=== PATIENT | male | born 1940 | race Caucasian/White ===

== ENCOUNTER → 2016-03-11 | Outpatient (CLI) | payer OTHER ==
[~2016-03-11] MED LIST: ACET325T96 PO; ALLO100T PO; AMLO-110 PO; AMOX875T PO; ANT25 PO; ASPI-232 PO; ASPI81TA28 PO; ATRIN INH; B-CO1CAP17 PO; B-COCAP20 PO; CALC667C PO; CHLO10CA7 PO; CHOL100010 PO; CHOL2000 PO; CIPR-255 PO; CMD3 PO; CMD5 PO; DSY/150 PO; FLM4 PO; FRS/40 PO; GABA-112 PO; HYDR-5688 PO; INSU1INJ2 SQ; INSU3INJ3 SQ; INSUINJ12 SC; IPRASOL4 INH; LBR10 PO; LEVO-17 PO; LEVO-366 PO; LIDO4CRE10 TOP; LISI40TA PO; LPT/20 PO; LSN40 PO; LSX40 PO; LVMI SC; LVMIPEN SC; METO25TA3 PO; METO50TA7 PO; METR-163 PO; MTR500 PO; MULT-506 PO; NF1094 IV; NF1420 PO; NRV5 PO; NUTR-7 PO; NVLGI SC; NVLGIPEN SC; OXYC-57 PO; PRLSR20 PO; RANI300T PO; RANI300T2 PO; SODI650T8 PO; TPRSR25 PO; TPRSR50 PO; VLTG EXT
--- NOTE | 2016-03-11 09:16 | DIAGNOSTIC IMAGING REPORT ---
RIGHT FOOT MIN 3 VIEWS ROUTINE CLINICAL HISTORY: Nonhealing diabetic ulcer. COMPARISON: None FINDINGS: The tarsometatarsal joints are intact. There is extensive posterior and plantar calcaneal spurring. There is bony irregularity of the sesamoids which is degenerative. Mild to moderate arthritis is noted within multiple articulations. There is no bony destruction to suggest osteomyelitis by radiography. There is no acute fracture. Calcifications adjacent to the right fifth metatarsal head are chronic. Note is made of apparent soft tissue swelling, most evident lateral to the right fifth metatarsophalangeal joint. IMPRESSION: No radiographic evidence of osteomyelitis within the right foot. Electronically signed by: Adrian Fox M.D. 03/11/2016 9:14 AM Dictated Date/Time: 03/11/2016 9:12 AM
== END | disposition home or self-care (01) ==
LOC: C.RAD 08:14
PROVIDERS: ATTEND Emergency Medicine
DX: E11.621 Type 2 diabetes mellitus with foot ulcer (principal); L97.519 Non-pressure chronic ulcer of other part of right foot with unspecified severity

== ENCOUNTER → 2016-04-14 | Outpatient (CLI) | payer OTHER ==
--- NOTE | 2016-04-15 07:31 | DIAGNOSTIC IMAGING REPORT ---
MRI OF THE RIGHT THIGH NO CONTRAST CLINICAL HISTORY: Right thigh mass COMPARISON STUDY: None FINDINGS: The patient was unable to tolerate the complete study. The examination consisted of axial T1 and T2-weighted images. There is a large anterior intramuscular thigh mass which parallels fat in signal intensity. The lesion does contain septations. No enhanced images were acquired. IMPRESSION: 1. The patient's palpable thigh mass corresponds to a 25 x 11 x 8 cm fatty mass. 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 2. The patient was unable to complete the examination. For this reason it was not possible to evaluate this mass for additional features which would suggest the possibility of a low-grade liposarcoma. Clinical correlation is therefore advocated. If this mass is enlarging, then biopsy could be obtained in follow-up. Electronically signed by: Sandip Montana M.D. 04/15/2016 7:29 AM Dictated Date/Time: 04/15/2016 7:25 AM
== END | disposition home or self-care (01) ==
LOC: C.MRI 04-01 07:27 → C.OPENMRI 09:38
PROVIDERS: ATTEND Internal Medicine
DX: D17.23 Benign lipomatous neoplasm of skin and subcutaneous tissue of right leg (principal)

== ENCOUNTER → 2016-04-21 | Outpatient (CLI) | payer OTHER | END | disposition home or self-care (01) | LOC: C.LABSPEC 17:03 | PROVIDERS: ATTEND Podiatrist | DX: M79.671 Pain in right foot (principal) ==

== ENCOUNTER → 2016-04-26 | Outpatient (CLI) | payer OTHER ==
--- NOTE | 2016-04-26 17:04 | DIAGNOSTIC IMAGING REPORT ---
BILATERAL LOWER EXTREMITY ARTERIAL DOPPLER STUDY HISTORY: Gangrene foot. Diabetic angiopathy. COMPARISON STUDY: None. FINDINGS: The right ankle-brachial index measured with the posterior tibial artery was 1.03 and the dorsalis pedis artery was 0.86. The left ankle-brachial measured with the posterior tibial artery was 0.84 and the dorsalis pedis artery was 0.69. Calcified plaque seen throughout the bilateral lower extremity arterial systems. Normal biphasic waveforms and velocities seen within the right common femoral and proximal superficial femoral artery. Elevated velocity within the mid right superficial femoral artery of 236 cm/s which also demonstrates monophasic flow. This is consistent with an area stenosis. There is also an elevated systolic velocity within the popliteal artery measuring 216 cm/s. Elevated velocity within the right profunda femoris artery of 311 cm/s. Biphasic waveforms within the right anterior tibial artery. Monophasic normal velocity waveforms seen within the right posterior tibial, peroneal, and dorsalis pedis arteries consistent with diffuse atherosclerotic disease. Biphasic normal velocity waveforms seen within the left common femoral artery and proximal left superficial femoral artery. Monophasic normal velocity waveforms seen throughout the remaining left lower extremity arterial system. IMPRESSION: 1. Elevated velocities within the mid right superficial femoral artery, right popliteal artery, and right profunda femoris artery consistent with areas of stenosis. 2. No hemodynamically significant stenosis within the left lower extremity arterial system. However, there monophasic waveforms seen throughout the majority of the left lower extremity arterial system suggestive of diffuse atherosclerotic disease. 3. No areas of arterial occlusion. Electronically signed by: Theodore Honeycutt M.D. 04/26/2016 5:03 PM Dictated Date/Time: 04/26/2016 4:56 PM
== END | disposition home or self-care (01) ==
LOC: C.ULTR 13:42
PROVIDERS: ATTEND Podiatrist
DX: E11.51 Type 2 diabetes mellitus with diabetic peripheral angiopathy without gangrene (principal)

== ENCOUNTER 2016-05-19 08:33 | Day surgery (SDC) | payer OTHER ==
[2016-05-19] VITALS (8 sets, daily range): BP systolic 138–180; BP diastolic 59–81; PULSE 69–89; TEMP 36.5–36.7; O2SAT 93–98; Ht 185.4 cm; Wt 112.0 kg
[~2016-05-19] VITALS: Ht 185.4 cm; Wt 112.0 kg
[~2016-05-19 08:33] MED LIST changes: -ACET325T96 PO; -ANT25 PO; -ASPI81TA28 PO; -B-CO1CAP17 PO; -B-COCAP20 PO; -CALC667C PO; -CHLO10CA7 PO; -CHOL2000 PO; -CMD3 PO; -CMD5 PO; -DSY/150 PO; -FLM4 PO; -FRS/40 PO; -GABA-112 PO; -HYDR-5688 PO; -INSU1INJ2 SQ; -INSU3INJ3 SQ; -LBR10 PO; -LEVO-17 PO; -LEVO-366 PO; -LIDO4CRE10 TOP; -LISI40TA PO; -LPT/20 PO; -LSN40 PO; -LSX40 PO; -LVMI SC; -LVMIPEN SC; -METO25TA3 PO; -METR-163 PO; -MTR500 PO; -NF1094 IV; -NF1420 PO; -NRV5 PO; -NUTR-7 PO; -NVLGIPEN SC; -OXYC-57 PO; -RANI300T PO; +SODIUM CHLORIDE 0.9% 1000ML IV SCH; -TPRSR25 PO; -TPRSR50 PO; -VLTG EXT
[2016-05-19] MEDS ORDERED: MIDAZOLAM HCL 1 MG/ML 2ML VIAL ONE (09:55)
[2016-05-19] MEDS ORDERED: FENTANYL CITRATE INJ 50 MCG/1 ML 2 ML VIAL ONE (09:55)
[2016-05-19] MEDS ORDERED: HEPARIN SOD (PORCINE) 1000 UNIT/ML 10 ML VIAL ONE (09:55)
--- NOTE | 2016-05-19 10:10 | Procedure Note ---
Pre-Mod Sedation Assessment General Date of Moderate Sedation: May 19, 2016. Vital Signs: Vital Signs Past 12 Hours Date Time Temp Pulse Resp B/P Pulse Ox O2 Delivery O2 Flow Rate FiO2 05/19/16 09:47 36.6 89 18 177/74 94 Room Air 05/19/16 08:47 36.6 89 18 177/74 94 Room Air Review Cardiovascular: regular rate, rhythm, no edema Abdomen: normal bowel sounds, non tender, soft Lungs: chest non-tender, lungs clear Airway Class: II Pre-Sedation Airway Assessment Oral Cavity: Dentures Able to Visualize Vocal Cords: No Short Thick Neck: No Hx of Sleep Apnea: No Smoking Status: Former Smoker Mallampati Classification: Class III ASA Classification: Class III Procedure Planning Contraindications-for Mod Sed: None Yes Notes The planned sedation has been discussed with the patient and consent obtained. I have identified the patient, determined the appropriateness of sedation and have assessed the patient immediately prior to the procedure. All medicine(s) and interventions are by my order.
[2016-05-19] MEDS ORDERED: NURSING VERBAL MED ORDER ONE (10:15)
--- NOTE | 2016-05-19 10:16 | History and Physical ---
History & Physical Date May 19, 2016. Chief Complaint Right lower extremity wound History of Present Illness Mr. Carmichael is a 75-year-old man with a history type 2 diabetes on insulin, hypertension, dyslipidemia, end-stage renal disease on hemodialysis via left upper extremity fistula seen recently for nonhealing wound on his right lower extremity and questionable peripheral artery disease. Patient was referred today for further evaluation by Dr. Hart of Podiatry. Patient has had a nonhealing wound on the plantar aspect of his right foot over his 5th metatarsal for approximately 7 weeks. Intermittently been followed by the wound clinic and has been on p.o. antibiotics without significant improvement. Dr. Hart saw patient for a second opinion and recommended possible surgical intervention of the 5th metatarsal head following vascular workup. Patient underwent QUYEN/lower extremity arterial duplex 1 week ago which suggested mild bilateral lower extremity arterial insufficiency and right SFA/popliteal disease. Past Medical/Surgical History Medical Problems: (1) CKD (chronic kidney disease) stage 3, GFR 30-59 ml/min (2) Gout (3) History of adenomatous polyp of colon (4) History of Clostridium difficile infection (5) Monoclonal gammopathy Surgical Problems: (1) Status post arthroscopic knee surgery Additional History Hepatic Disease: No Endocrine Disorder: Yes Kidney Disease: Yes Hypertension: Yes Heart Disease: No Bleeding Tendencies: No Infectious Diseases: No Allergies Coded Allergies: No Known Allergies (Verified , 12/28/15) Home Medications Scheduled Allopurinol (Zyloprim), 1 TAB PO HS Amlodipine (Norvasc), 5 MG PO QAM Aspirin (Aspir-81), 1 TAB PO QAM Cholecalciferol (Vitamin D), 1,000 INTER.UNIT PO BID Insulin Aspart (Novolog), 60 UNITS SC BID Insulin Detemir (Levemir), 60 UNITS SC HS Metoprolol Succ (Toprol Xl) (Toprol-Xl), 50 MG PO QAM Omeprazole (Prilosec), 20 MG PO QAM Sodium Bicarbonate (Sodium Bicarbonate), 1 TAB PO BID Scheduled PRN Ipratropium [place] (Atrovent Hfa), 2 PUFFS INH QID PRN for Shortness of Breath Ipratropium-Albuterol (Duoneb), 1 TREATMENT INH Q4H PRN for Shortness of Breath Physical Examination Skin: warm/dry Eyes: normal inspection ENT: normal ENT inspection Head: normocephalic Neck: supple Respiratory/Chest: lungs clear Cardiovascular: regular rate, rhythm, no edema Abdomen / GI: normal bowel sounds, non tender Extremities: normal inspection, + pertinent finding (right foot wound dressed) Neurologic/Psych: no motor/sensory deficits, alert Diagnosis Lower extremity ulceration PAD ASA Classification: ASA Class III Plan of Treatment Proceed with bilateral peripheral angiogram and possible intervention.
[2016-05-19] MEDS ORDERED: MIDAZOLAM HCL 1 MG/ML 2ML VIAL IV ONE (10:48)
[2016-05-19] MEDS ORDERED: FENTANYL CITRATE INJ 50 MCG/1 ML 2 ML VIAL IV ONE ×2 (10:49→11:13)
[2016-05-19] MEDS ORDERED: IODIXANOL (VISIPAQUE) 270 MG/ML 150ML FLUSH ONE (11:22)
[2016-05-19] MEDS ORDERED: LIDOCAINE HCL 1% 20 ML VIAL SQ ONE (11:22)
[2016-05-19] MEDS ORDERED: ACETAMINOPHEN 325 MG TAB PO PRN (11:45)
--- NOTE | 2016-05-19 11:45 | Procedure Note ---
Post-Mod Sedation Assessment General Date of Moderate Sedation May 19, 2016. Vital Signs: Vital Signs Past 12 Hours Date Time Temp Pulse Resp B/P Pulse Ox O2 Delivery O2 Flow Rate FiO2 05/19/16 09:47 36.6 89 18 177/74 94 Room Air 05/19/16 08:47 36.6 89 18 177/74 94 Room Air Review - Discharge Criteria Vital Signs Stable: Yes Alert/Oriented/Conversant: Yes Returned to Baseline Mental St: Yes Nausea Absent/Minimal: Yes Pain/Discomfort/Absent/Minimal: Yes Normal/Baseline Respirations: Yes Active Bleeding?: N/A Pt Received D/C Instructions: Yes Prescriptions Given: None Specific Proced. D/C Criteria Distal Pulses Present (Cardiac: Yes Groin site assessed-Card Cath: Yes Voided Prior To Discharge: N/A Discharged Patients Adult Escort/Transportation: Yes
--- NOTE | 2016-05-19 12:01 | [facility] Operative Report ---
Operative Report Operative Date May 19, 2016. Pre-Operative Diagnosis PAD Post-Operative Diagnosis Mild non-obstructive PAD Procedure(s) Performed Bilateral Peripheral Angiogram Selective Angiogram of right SFA/distal lower extremity Surgeon Dr. Pickering [employer]eteria Food Server Surgeon(s) Tova Rushing Estimated Blood Loss 10 Findings US guided access left SOFTWARE PRODUCT MANAGER. rim catheter, glidewire. Later, selective angiogram with a quickcross to visualize SFA and foot Infrarenal abdominal aorta mildy aneurysmal Right Iliac, SOFTWARE PRODUCT MANAGER, SFA, Popliteal all patent. Mild to moderate calcified sclerosis in mid to distal SFA/popliteal <50%. TPT patent PT large vessel with minimal disease to the foot filling the posterior branch of the pedal arch AT and peroneal mild-moderate diffuse disease but patent to the foot. Left 70-80% ostial IAN stenosis. EIA patent with mild disease. Left SOFTWARE PRODUCT MANAGER patent, ok for closure device. Left SFA with focal calcified disease in the mid segment, up to 80% stenosis. Popliteal, TPT patent PT patent with mild disease to the foot AT and PT diffusely diseased but patent to the foot. Summary: 1. Mild-moderate nonobstructive disease throughout right lower extremity arterial system. 3 vessel distal runoff with large PT supplying pedal arch 2. Severe 70-80% left ostial common iliac stenosis. 3. Moderate to severe focal left SFA stenosis. Recommendations: Mild right lower extremity disease with good in-line flow to the foot and plantar wound. No plans for intervention at this time. Specimens None Drains None Anesthesia Moderate Complication(s) None Disposition Recovery Room / PACU Description of Procedure [employer] for closure I attest to the content of the Intraoperative Record and any orders documented therein. Any exceptions are noted below.
--- NOTE | 2016-05-19 14:50 | Discharge Instructions ---
Discharge Instructions Procedure Procedure Date: May 19, 2016. Reason for Visit: Peripheral Artery Disease. Discharge Discharge Date: May 19, 2016. Discharge Diagnosis: Nonobstructive PAD Last Recorded Wt (Kilograms): 112 Anesthesia Post Anesthesia Instructions: If you have had General Anesthesia or IV Sedation: * Do not drive today. * Resume driving when surgeon permits. * Do not make important decisions or sign legal documents today. * Call surgeon for: 1. Temperature elevations greater than 101 degrees F. 2. Uncontrollable pain. 3. Excessive bleeding. 4. Persistent nausea and vomiting. 5. Medication intolerance (nausea, vomiting or rash). * For nausea and vomiting use only clear liquids such as: tea, soda, bouillon until nausea subsides, then gradually increase diet as tolerated. * If you have any concerns or questions, call your surgeon's office. If physician is unavailable and it is an emergency, call 911 or go to the nearest emergency room. Instructions Activity Recommendations: limitations as noted below Recommended Home Diet: resume previous diet Allergies: Coded Allergies: No Known Allergies (Verified , 12/28/15) Follow Up Additional Instructions: ACTIVITY RECOMMENDATIONS: It is common to feel weak and fatigue for a few days. * Do not drive or operate any motorized equipment for the next 2 days. * Limit stair usage (2 or 3 trips a day only) for the next three days. * Do not lift anything heavier than 10 pounds for the next three days. * Do not engage in vigorous exercise or any sports for the next five days. * You may shower the day after your procedure, but do not immerse the area for three days. Cleanse the site gently with soap and water. SPECIAL CARE INSTRUCTIONS: * You may replace the pressure dressing or band-aid the morning after the procedure. * After your procedure, it is normal to have a small bruise or small lump at the site. Examine your site daily for any change in the bruise or lump, redness, swelling, drainage or numbness. Notify your doctor if any change. BLEEDING: * If there is a small amount of bleeding at the site, lie down and apply firm pressure with a clean cloth for ten minutes. When the bleeding stops, lie quietly keeping the procedure limb straight for six hours. Notify your doctor as soon as possible. * If the bleeding does not stop after ten minutes or if there is a large amount of bleeding or spurting, call 911 immediately. Continue to lie down and hold firm pressure until help arrives. SKIN IRRITATION: * You may experience some redness and/or swelling in the area where radiation was administered. If any skin irritation occurs, please contact your family physician. FOLLOW UP VISIT: Keep any scheduled doctor appointments. Follow-up with: Follow-up with Moisture Conditioner Operator as scheduled. Jackson Mccurdy Recommendations: Call your doctor if: * Temperature above 101 degrees * Pain not relieved by pain medicine ordered * There is increased drainage or redness from any incision * You have any unanswered questions or concerns. Your Doctors Instructions noted above were prepared by provider Roland Pickering. Patient Signature Section: Patient Instructions Signature Page Bre Carmichael Patient (or Guardian) Signature/Date: I have read and understand the instructions given to me by my caregivers. Caregiver/RN/Doctor Signature/Date: The above-named patient and/or guardian has received patient instructions on this date. + Original Patient Signature Page (only) stays with chart. Please make copy for patient.
[2016-06-17] MEDS ORDERED: TPRSR25 PO (13:12)
[2016-06-17] MEDS ORDERED: HYDR-5688 PO (13:12)
[2016-06-17] MEDS ORDERED: LVMIPEN SC (13:12)
[2016-06-17] MEDS ORDERED: NRV5 PO (13:12)
[2016-06-17] MEDS ORDERED: MTR500 PO (13:12)
[2016-06-17] MEDS ORDERED: LSN40 PO (13:12)
[2016-06-17] MEDS ORDERED: LBR10 PO (13:12)
[2016-06-17] MEDS ORDERED: TPRSR50 PO (13:12)
[2016-06-17] MEDS ORDERED: NF1094 IV (13:12)
[2016-06-17] MEDS ORDERED: CMD5 PO (13:13)
[2016-06-17] MEDS ORDERED: LEVO-17 PO (15:06)
[2016-07-08] MEDS ORDERED: NF1420 PO (14:08)
[2016-07-13] MEDS ORDERED: LIDO4CRE10 TOP (17:57)
[2016-07-13] MEDS ORDERED: FRS/40 PO (17:57)
[2016-07-13] MEDS ORDERED: ALLO100T PO (17:57)
[2016-07-13] MEDS ORDERED: METO25TA3 PO (17:57)
[2016-07-16] MEDS ORDERED: HYDR-5688 PO (11:21)
[2016-07-16] MEDS ORDERED: NUTR-7 PO (11:21)
[2016-07-16] MEDS ORDERED: VLTG EXT (11:21)
[2016-07-16] MEDS ORDERED: B-COCAP20 PO (11:21)
[2016-07-19] MEDS ORDERED: VLTG EXT (16:27)
[2016-07-19] MEDS ORDERED: NVLGIPEN SC (16:27)
[2016-07-19] MEDS ORDERED: CMD3 PO (16:28)
[2016-07-19] MEDS ORDERED: INSU3INJ3 SQ (16:35)
[2016-07-19] MEDS ORDERED: OXYC-57 PO (17:07)
[2016-07-29] MEDS ORDERED: GABA-112 PO (13:17)
== END 2016-05-19 15:45 | disposition home or self-care (01) ==
LOC: C.ACU 08:33
PROVIDERS: ATTEND Internal Medicine Interventional Cardiology
DX: I73.9 Peripheral vascular disease, unspecified (principal); E11.9 Type 2 diabetes mellitus without complications; I12.0 Hypertensive chronic kidney disease with stage 5 chronic kidney disease or end stage renal disease; N18.6 End stage renal disease; Z79.4 Long term (current) use of insulin

== ENCOUNTER → 2016-05-28 | Outpatient (CLI) | payer OTHER ==
[~2016-05-28] MED LIST changes: +ACET325T96 PO; -AMOX875T PO; +ANT25 PO; +ASPI81TA28 PO; +B-CO1CAP17 PO; +B-COCAP20 PO; +CALC667C PO; +CHLO10CA7 PO; +CHOL2000 PO; -CIPR-255 PO; +CMD3 PO; +CMD5 PO; +DSY/150 PO; +FLM4 PO; +FRS/40 PO; +GABA-112 PO; +HYDR-5688 PO; +INSU1INJ2 SQ; +INSU3INJ3 SQ; +LBR10 PO; +LEVO-17 PO; +LEVO-366 PO; +LIDO4CRE10 TOP; +LISI40TA PO; +LPT/20 PO; +LSN40 PO; +LSX40 PO; +LVMI SC; +LVMIPEN SC; +METO25TA3 PO; +METR-163 PO; +MTR500 PO; -MULT-506 PO; +NF1094 IV; +NF1420 PO; +NRV5 PO; +NUTR-7 PO; +NVLGIPEN SC; +OXYC-57 PO; +RANI300T PO; -RANI300T2 PO; -SODIUM CHLORIDE 0.9% 1000ML IV SCH; +TPRSR25 PO; +TPRSR50 PO; +VLTG EXT
== END | disposition home or self-care (01) ==
LOC: C.LABSPEC 15:22
PROVIDERS: ATTEND Podiatrist
DX: L97.511 Non-pressure chronic ulcer of other part of right foot limited to breakdown of skin (principal)

== ENCOUNTER 2016-06-02 09:24 | Inpatient (IN) | payer OTHER ==
[~2016-06-02] VITALS: Ht 185.4 cm; Wt 111.2 kg
[~2016-06-02 09:24] MED LIST changes: -ACET325T96 PO; -ANT25 PO; -ASPI81TA28 PO; -B-CO1CAP17 PO; -B-COCAP20 PO; -CALC667C PO; -CHLO10CA7 PO; -CHOL2000 PO; -CMD3 PO; -CMD5 PO; -DSY/150 PO; -FLM4 PO; -FRS/40 PO; -GABA-112 PO; -HYDR-5688 PO; -INSU1INJ2 SQ; -INSU3INJ3 SQ; -LBR10 PO; -LEVO-17 PO; -LEVO-366 PO; -LIDO4CRE10 TOP; -LISI40TA PO; -LPT/20 PO; -LSN40 PO; -LSX40 PO; -LVMI SC; -LVMIPEN SC; -METO25TA3 PO; -METR-163 PO; -MTR500 PO; -NF1094 IV; -NF1420 PO; -NRV5 PO; -NUTR-7 PO; -NVLGIPEN SC; -OXYC-57 PO; -RANI300T PO; -TPRSR25 PO; -TPRSR50 PO; -VLTG EXT
[2016-06-02] MEDS ORDERED: PIPERACILLIN/TAZOBACTAM 4.5 GM/100ML D5W IV STA (09:59)
[2016-06-02] MEDS ORDERED: VANCOMYCIN INJ 0 MG in SODIUM CHLORIDE 0.9% 500ML 500 ML IV STA (09:59)
--- NOTE | 2016-06-02 10:01 | EMERGENCY ROOM VISIT NOTE ---
History Report prepared by [facility]: Priscilla Lala Under the Supervision of: Dr. Jones Loo M.D. First contact with patient: 09:50 Chief Complaint: NAUSEA Stated Complaint: NAUSEA Nursing Triage Summary: Pt presents to room a04 via ambulance from dialysis. pt was able to complete dialysis treatment today. pt reports he has had nausea and vomitting, fever and chills x 5 days. pt had three episodes of vomitting today. at dialysis per [facility] call in sheet pt recieved 1.25 grams of vancomycin today. pt is to have right foot surgery on tuesday. right foot reddned, swollen and ulceration on lateral 5th toe. pt reports headache. History of Present Illness The patient is a 75 year old male who presents to the Emergency Room with complaints of persistent nausea for the past five days. He currently rates his discomfort as an 8/10 in severity. The patient states that he is a dialysis patient, noting that he started 6-7 months ago. He states that he missed dialysis on Tuesday due to his illness, but notes that he was able to receive his dialysis today. The patient states that he still makes urine, and denies any urinary symptoms. The patient notes that for the past six months he has had right foot pain. He states that he previously had an ulcer. The patient denies being on any current antibiotics for his foot. The patient denies any chest pain, headache, or diarrhea. He states that he has been keeping up on his fluid intake. Per nursing staff, the patient was given 1.25 gm of Vancomycin at dialysis prior to arrival. Source of History: patient, spouse/significant other Onset: past five days Position: other (global) Symptom Intensity: 8/10 Quality: other (nausea) Timing: other (persistent) Associated Symptoms: No chest pain, No diarrhea, No headache, No urinary symptoms Review of Systems See HPI for pertinent positives & negatives. A total of 10 systems reviewed and were otherwise negative. Past Medical & Surgical Medical Problems: (1) CKD (chronic kidney disease) stage 3, GFR 30-59 ml/min (2) Gout (3) History of adenomatous polyp of colon (4) History of Clostridium difficile infection (5) Monoclonal gammopathy (6) Unspecified open wound, right foot, sequela Surgical Problems: (1) Status post arthroscopic knee surgery Old medical records were reviewed. Nurse's notes were reviewed and I agree with. Family History FH: diabetes mellitus AUNT FH: stroke GRANDMOTHER Social History Smoking Status: Former Smoker Alcohol Use: none Drug Use: none Marital Status: Housing Status: lives with family Occupation Status: retired Current/Historical Medications Scheduled Allopurinol (Zyloprim), 1 TAB PO HS Amlodipine (Norvasc), 5 MG PO QAM Aspirin (Aspir-81), 1 TAB PO QAM Atorvastatin (Atorvastatin Calcium), 1 TAB PO DAILY Calcium Acetate (Phosphate Bin (Phoslo 667 Mg), 1 CAP PO TID Cholecalciferol (Vitamin D3), 1 CAP PO DAILY Furosemide (Furosemide), 1 TAB PO DAILY Insulin Aspart (Novolog Penfill), 60 UNITS SQ BID Insulin Detemir (Levemir), 80 UNITS SC HS Metoprolol Succ (Toprol Xl) (Toprol-Xl), 50 MG PO QAM Ranitidine Hcl (Zantac), 1 TAB PO DAILY Sodium Bicarbonate (Sodium Bicarbonate), 1 TAB PO BID Tamsulosin HCl (Tamsulosin HCl), 1 CAP PO HS Scheduled PRN Ipratropium [place] (Atrovent Hfa), 2 PUFFS INH QID PRN for Shortness of Breath Ipratropium-Albuterol (Duoneb), 1 TREATMENT INH Q4H PRN for Shortness of Breath Meclizine HCl (Meclizine HCl), 1 TAB PO Q4H PRN for Dizziness or Vertigo Trazodone HCl (Trazodone HCl), 1 TAB PO DAILY PRN for Pain Allergies Coded Allergies: No Known Allergies (Verified , 06/02/16) Physical Exam Vital Signs Date Time Temp Pulse Resp B/P Pulse Ox O2 Delivery O2 Flow Rate FiO2 06/02/16 12:10 93 Room Air 06/02/16 10:54 99 20 155/62 93 Room Air 06/02/16 10:04 100 06/02/16 09:46 93 Room Air 06/02/16 09:39 38.2 98 20 149/64 93 Room Air Physical Exam General: Well developed well nourished, non-ill appearing older male in no acute distress, breathing comfortably on room air. Normal speech HEENT: Normal cephalic atraumatic. Pupils are equal round and reactive to light. Extraocular movements are intact. Oropharynx is pink with moist mucous membranes. No swelling of the mouth lips or tongue. Neck: Supple with a midline trachea. No meningeal signs or stiffness, no JVD or bruits. No Stridor. Chest: Clear to auscultation bilaterally. No wheezes or rhonchi. No increased work of breathing. Heart: regular rate and rhythm. Abdomen: Soft nontender, nondistended without rebound guarding or rigidity. Extremities: Dialysis fistula in left arm. Right foot has an ulcer on the plantar aspect. The area is red and warm up to the castellon consistent with cellulitis. No cyanosis clubbing or edema. No calf tenderness or assymetry Spine/Back. Non tender to palpation. No CVA tenderness Skin: Good turgor without rashes. Neurologic exam: Cranial nerves two through 12 are intact. Motor and sensation are intact and symmetrical throughout. Medical Decision & Procedures ER Provider Diagnostic Interpretation: X-ray results as stated below per interpretation by me and the radiologist: CHEST ONE VIEW PORTABLE HISTORY: Atypical CHEST PAIN COMPARISON: Chest 03/20/2015. FINDINGS: Mild diffuse interstitial thickening, unchanged. The heart is normal in size. No pleural effusions. No pneumothorax. No new focal lung consolidations. IMPRESSION: Stable chronic interstitial thickening. No acute process within the chest. Electronically signed by: Theodore Honeycutt M.D. 06/02/2016 10:50 AM Dictated Date/Time: 06/02/2016 10:47 AM RIGHT FOOT 3 VIEWS CLINICAL HISTORY: Right foot infection. FINDINGS: 3 views of the right foot are compared to study dated 03/11/2016. The Skeletal structures are osteopenic. No fracture is seen. There is no bony erosion or periostitis identified. Arthritic change is seen at the first metatarsophalangeal and interphalangeal joints. Degenerative spurring is seen along the dorsal aspect of the tarsal bones. There is a large os trigonum. Large dorsal and plantar calcaneal enthesophytes are observed. Diffuse soft tissue edema is present throughout the foot. Foci of subcutaneous gas are identified along the lateral aspect of the forefoot, greatest around the fifth metatarsophalangeal joint. No radiodense foreign body is seen. IMPRESSION: 1. No acute bony abnormality is identified in the right foot. There is no convincing radiographic evidence of fracture or osteomyelitis. 2. Osteopenia, heel spurs, and arthritic change as above. 3. There is diffuse soft tissue edema throughout the foot. Foci of subcutaneous gas are present along the lateral aspect of the forefoot around the fifth metatarsophalangeal joint. This could the related to recent instrumentation or possibly infection with a gas-forming organism. Clinical correlation will be required. Electronically signed by: Allan Guerrero M.D. 06/02/2016 12:30 PM Dictated Date/Time: 06/02/2016 12:26 PM Laboratory Results 06/02/16 10:50 Red Blood Count 3.37, Mean Corpuscular Volume 91.1, Mean Corpuscular Hemoglobin 31.2, Mean Corpuscular Hemoglobin Concent 34.2, Mean Platelet Volume 8.7, Neutrophils (%) (Auto) 82.7, Lymphocytes (%) (Auto) 8.2, Monocytes (%) (Auto) 8.6, Eosinophils (%) (Auto) 0.0, Basophils (%) (Auto) 0.1, Neutrophils # (Auto) 19.13, Lymphocytes # (Auto) 1.90, Monocytes # (Auto) 1.99, Eosinophils # (Auto) 0.01, Basophils # (Auto) 0.03 06/02/16 10:50 Test 06/02/16 10:50 06/02/16 10:58 06/02/16 11:00 White Blood Count 23.15 K/uL (4.8-10.8) Red Blood Count 3.37 M/uL (4.7-6.1) Hemoglobin 10.5 g/dL (14.0-18.0) Hematocrit 30.7 % (42-52) Mean Corpuscular Volume 91.1 fL (80-100) Mean Corpuscular Hemoglobin 31.2 pg (25-34) Mean Corpuscular Hemoglobin Concent 34.2 g/dl (32-36) Platelet Count 343 K/uL (130-400) Mean Platelet Volume 8.7 fL (7.4-10.4) Neutrophils (%) (Auto) 82.7 % Lymphocytes (%) (Auto) 8.2 % Monocytes (%) (Auto) 8.6 % Eosinophils (%) (Auto) 0.0 % Basophils (%) (Auto) 0.1 % Neutrophils # (Auto) 19.13 K/uL (1.4-6.5) Lymphocytes # (Auto) 1.90 K/uL (1.2-3.4) Monocytes # (Auto) 1.99 K/uL (0.11-0.59) Eosinophils # (Auto) 0.01 K/uL (0-0.5) Basophils # (Auto) 0.03 K/uL (0-0.2) RDW Standard Deviation 46.9 fL (36.4-46.3) RDW Coefficient of Variation 14.0 % (11.5-14.5) Immature Granulocyte % (Auto) 0.4 % Immature Granulocyte # (Auto) 0.09 K/uL (0.00-0.02) Prothrombin Time 11.6 SECONDS (9.0-12.0) Prothromb Time International Ratio 1.1 (0.9-1.1) Activated Partial Thromboplast Time 26.8 SECONDS (21.0-31.0) Partial Thromboplastin Ratio 1.0 Anion Gap 16.0 mmol/L (3-11) Est Creatinine Clear Calc Drug Dose 14.1 ml/min Estimated GFR () 10.0 Estimated GFR (Non- 8.6 BUN/Creatinine Ratio 6.2 (10-20) Calcium Level 9.0 mg/dl (8.5-10.1) Total Bilirubin 1.3 mg/dl (0.2-1) Direct Bilirubin 0.4 mg/dl (0-0.2) Aspartate Amino Transf (AST/SGOT) 32 U/L (15-37) Alanine Aminotransferase (ALT/SGPT) 24 U/L (12-78) Alkaline Phosphatase 157 U/L (45-117) Total Creatine Kinase 341 U/L (39-308) Creatine Kinase MB 3.0 ng/ml (0.5-3.6) Creatine Kinase MB Ratio 0.9 (0-3.0) Total Protein 8.0 gm/dl (6.4-8.2) Albumin 2.6 gm/dl (3.4-5.0) Lipase 141 U/L (73-393) Bedside Troponin I 0.040 ng/ml (0-0.045) Bedside Lactic Acid Venous 1.49 mmol/L (0.90-1.70) Laboratory studies as stated above per my review. Medications Administered Medications (Trade) Dose Ordered Sig/Eliseo Route Start Time Stop Time Status Last Admin Dose Admin Piperacillin Sod/ Tazobactam Sod (Zosyn Iv) 4.5 gm NOW STAT IV 06/02/16 09:59 06/02/16 10:07 DC 06/02/16 11:32 4.5 GM Morphine Sulfate (MoRPHine SULFATE INJ) 4 mg NOW STAT IV 06/02/16 11:41 06/02/16 11:42 DC 06/02/16 12:00 4 MG Ondansetron HCl (Zofran Inj) 4 mg NOW STAT IV 06/02/16 11:41 06/02/16 11:42 DC 06/02/16 11:59 4 MG Acetaminophen (Tylenol Tab) 650 mg NOW STAT PO 06/02/16 11:49 06/02/16 11:50 DC 06/02/16 12:00 650 MG Ondansetron HCl (Zofran Inj) 4 mg Q6H PRN IV 06/02/16 12:30 07/02/16 12:29 06/02/16 17:48 4 MG Oxycodone/ Acetaminophen (Percocet 5-325mg Tab) 1 tab Q4H PRN PO 06/02/16 12:30 06/16/16 12:29 06/02/16 16:13 1 TAB Morphine Sulfate (MoRPHine SULFATE INJ) 2 mg Q2H PRN IV 06/02/16 12:30 06/16/16 12:29 06/02/16 15:06 2 MG ECG Indication: nausea Rate (beats per minute): 100 Rhythm: normal sinus Findings: no acute ischemic change, other (poor baseline, occasional premature supraventricular complexes) Comparison ECG Date: 02/25/10 Change: no significant change ED Course 0950: Past medical records reviewed. The patient was evaluated in room A4B, and a complete history and physical examination were performed. 0959: Ordered Vancomycin HCl/Sodium Chloride 500 ml @ 200 mls/hr IV, Zosyn IV 4.5 gm IV. 1119: I reevaluated the patient and he is resting comfortably. I discussed the exam findings so far with him and I discussed the treatment plan. He verbalized complete understanding and agreement. He will be evaluated for further treatment. 1141: Ordered Zofran Inj 4 mg IV, Morphine Sulfate 4 mg IV. 1147: I reevaluated the patient and he is receiving pain medications. 1149: Ordered Tylenol Tab 650 mg PO. 1150: I discussed the patients case with NANCY Anne. He is going to evaluate the patient for further treatment. Medical Decision Differentials include, but are not limited to; cellulitis, osteomyelitis, cardiac disease, sepsis, electrolyte or metabolic abnormality. This patient comes in as described above. He has end-stage renal disease and is on dialysis. He's had a fever and nausea and a red foot. He was given IV vancomycin at dialysis. He did complete dialysis today. He looks well on exam with exception of his red foot. He does have a fever. He was given Tylenol for his fever blood work includes blood cultures was obtained his lactic acid is not elevated his white count is in the low 20s however. He was also given IV Zosyn here. Chest x-ray does not show any definite pneumonia. X-ray of his foot shows no definite fractures or definite osteomyelitis.. He does have some air which could be related to either infection or the the the fact that there is an ulcer there or instrumentation. I do think he needs to be admitted for IV antibiotics and possible surgery. I have consulted Dr. Pfeiffer, who saw the patient ER and will admit him for these measures. Consults Time Called: 1141 Consulting Physician: NANCY Anne Returned Call: 1150 I discussed the patients case with NANCY Anne. He is going to evaluate the patient for further treatment. Impression Primary Impression: Sepsis Additional Impression: Cellulitis of right foot Scribe Attestation The scribe's documentation has been prepared under my direction and personally reviewed by me in its entirety. I confirm that the note above accurately reflects all work, treatment, procedures, and medical decision making performed by me. Departure Information Dispostion Being Evaluated By Hospitalist Obi Murdock M.D. (PCP) Problem Qualifiers
--- NOTE | 2016-06-02 10:52 | DIAGNOSTIC IMAGING REPORT ---
CHEST ONE VIEW PORTABLE HISTORY: Atypical CHEST PAIN COMPARISON: Chest 03/20/2015. FINDINGS: Mild diffuse interstitial thickening, unchanged. The heart is normal in size. No pleural effusions. No pneumothorax. No new focal lung consolidations. IMPRESSION: Stable chronic interstitial thickening. No acute process within the chest. Electronically signed by: Theodore Honeycutt M.D. 06/02/2016 10:50 AM Dictated Date/Time: 06/02/2016 10:47 AM
[2016-06-02 11:21] LABS: BASO % 0.1 %; BASO ABS # 0.03 K/uL (0-0.2); COMPLETE YES; HEMATOCRIT 30.7 % (42-52); IG% 0.4 %; LYMPH % 8.2 %; MEAN CELL VOLUME 91.1 fL (80-100); MEAN CORPUSCULAR HEMOGLOBIN 31.2 pg (25-34); MEAN CORPUSCULAR HGB CONC 34.2 g/dl (32-36); MEAN PLATELET VOLUME 8.7 fL (7.4-10.4); MONO % 8.6 %; NEUT % 82.7 %; PLATELET COUNT 343 K/uL (130-400); RED BLOOD COUNT 3.37 M/uL (4.7-6.1); WHITE BLOOD COUNT 23.15 K/uL (4.8-10.8)
[2016-06-02 11:32] LABS: INR 1.1 (0.9-1.1); PROTHROMBIN TIME (PATIENT) 11.6 SECONDS (9.0-12.0)
[2016-06-02] MEDS ORDERED: MoRPHine SULFATE 4 MG/ML 1 ML CARP\\VIAL IV STA (11:41)
[2016-06-02] MEDS ORDERED: ONDANSETRON INJ 2 MG/ML 2 ML VIAL IV STA (11:41)
[2016-06-02] MEDS ORDERED: INSU1INJ2 SQ (11:49)
[2016-06-02] MEDS ORDERED: LVMI SC (11:49)
[2016-06-02] MEDS ORDERED: CHOL2000 PO (11:49)
[2016-06-02] MEDS ORDERED: ACETAMINOPHEN 325 MG TAB PO STA (11:49)
[2016-06-02] MEDS ORDERED: CALC667C PO (11:49)
[2016-06-02] MEDS ORDERED: RANI300T PO (11:49)
[2016-06-02] MEDS ORDERED: LPT/20 PO (11:53)
[2016-06-02] MEDS ORDERED: ANT25 PO (11:53)
[2016-06-02] MEDS ORDERED: FLM4 PO (11:53)
[2016-06-02] MEDS ORDERED: DSY/150 PO (11:53)
[2016-06-02] MEDS ORDERED: LSX40 PO (11:53)
[2016-06-02 12:10] VITALS: O2SAT 93; BMI 31.1
[2016-06-02 12:11] LABS: BUN/CREATININE RATIO 6.2 (10-20); CKMB/CK RATIO 0.9 (0-3.0); CREATININE 5.9 mg/dl (0.60-1.40); POTASSIUM 3.9 mmol/L (3.5-5.1)
[2016-06-02] MEDS ORDERED: ONDANSETRON INJ 2 MG/ML 2 ML VIAL IV PRN ×2 (12:30→18:00)
[2016-06-02] MEDS ORDERED: MECLIZINE HCL 25 MG TAB PO PRN (12:30)
[2016-06-02] MEDS ORDERED: MAGNESIUM HYDROXIDE SUSP 30 ML UDC PO PRN (12:30)
[2016-06-02] MEDS ORDERED: IPRATROPIUM BROMIDE HFA INHALER INH PRN (12:30)
[2016-06-02] MEDS ORDERED: TRAMADOL HCL 50 MG TAB PO PRN (12:30)
[2016-06-02] MEDS ORDERED: ACETAMINOPHEN 325 MG TAB PO PRN (12:30)
--- NOTE | 2016-06-02 12:32 | DIAGNOSTIC IMAGING REPORT ---
RIGHT FOOT 3 VIEWS CLINICAL HISTORY: Right foot infection. FINDINGS: 3 views of the right foot are compared to study dated 03/11/2016. The Skeletal structures are osteopenic. No fracture is seen. There is no bony erosion or periostitis identified. Arthritic change is seen at the first metatarsophalangeal and interphalangeal joints. Degenerative spurring is seen along the dorsal aspect of the tarsal bones. There is a large os trigonum. Large dorsal and plantar calcaneal enthesophytes are observed. Diffuse soft tissue edema is present throughout the foot. Foci of subcutaneous gas are identified along the lateral aspect of the forefoot, greatest around the fifth metatarsophalangeal joint. No radiodense foreign body is seen. IMPRESSION: 1. No acute bony abnormality is identified in the right foot. There is no convincing radiographic evidence of fracture or osteomyelitis. 2. Osteopenia, heel spurs, and arthritic change as above. 3. There is diffuse soft tissue edema throughout the foot. Foci of subcutaneous gas are present along the lateral aspect of the forefoot around the fifth metatarsophalangeal joint. This could the related to recent instrumentation or possibly infection with a gas-forming organism. Clinical correlation will be required. Electronically signed by: Allan Guerrero M.D. 06/02/2016 12:30 PM Dictated Date/Time: 06/02/2016 12:26 PM
--- NOTE | 2016-06-02 13:26 | History and Physical ---
History & Physical Date & Time of Service: Jun 02, 2016 at 12:50 Chief Complaint: Nausea Primary Care Physician: Obi Mendez M.D. History of Present Illness Source: patient This is a 75 yo M with PMHx of DM II, HTN, Hyperlipidemia, COPD, smoking history of 2 ppd x 35 years, quit ~20yrs ago, monoclonal gammopathy, ESRD on HD with regular schedule m/w/, gout, and chronic right lower extremity foot wound which he has followed with wound clinic and podiatry for. The patient is present here by himself. He reports being in HD this morning and staff noticed worsening of the Right foot with increased redness and swelling. He was able to tolerate his full dialysis treatment, and was started on vancomycin while there. Pt also reports this wound is now significantly painful, currently a and he has just received morphine sulfate 6 mg IV prior to my interview. He is a patient of Dr. Alyssa Haque, podiatry and was last seen in her office on 05/28 where a wound culture was obtained, no results back. He was scheduled for surgery on 06/04 as an outpatient with her. It is questionable if he is truly taking Augmentin 875 mg, he is having difficulty remembering. Pt had a Tmax of 38.2 this morning, but denies feeling sweats or chills. He denies lightheadedness of dizziness. He does report not feeling quit himself recently, and that this morning was nauseous and vomited once clear liquid, no hematemesis or coffee ground appearance. He reports loosing weight in the past 2 weeks, ~5-10lbs because he doesn't have an appetite. He lives at home with his daughter. He typically ambulates without assistance and dose not require supplemental O2. In the ER the patient has WBC of 23.15, left shift with neutrophils of 19K, Hgb= 10.5, Cr. =5.8, AG=16, Tmax 38.2, slightly tachycardic with WQ=393, Bili is elevated at 1.3. Pt was started on vancomycin and zosyn. Xray of the foot was obtained but not yet read formally. Past Medical/Surgical History Medical Problems: (1) CKD (chronic kidney disease) stage 3, GFR 30-59 ml/min Status: Chronic (2) Gout Status: Chronic (3) History of adenomatous polyp of colon Status: Chronic (4) History of Clostridium difficile infection Status: Chronic (5) Monoclonal gammopathy Permanent Comment: IgM lambda followed by Dr. Verde Status: Chronic Surgical Problems: (1) Status post arthroscopic knee surgery Status: Chronic Family History FH: diabetes mellitus AUNT FH: stroke GRANDMOTHER Social History Smoking Status: Former Smoker Drug Use: none Marital Status: Housing status: lives with family Occupational Status: retired Immunizations History of Influenza Vaccine: Yes History of Tetanus Vaccine?: Unknown History of Pneumococcal: Yes Pneumococcal Date: Dec 22, 2007 History of Hepatitis B Vaccine: Unknown Multi-Drug Resistant Organisms History of MDRO: No Allergies Coded Allergies: No Known Allergies (Verified , 06/02/16) Home Medications Scheduled Allopurinol (Zyloprim), 1 TAB PO HS Amlodipine (Norvasc), 5 MG PO QAM Aspirin (Aspir-81), 1 TAB PO QAM Atorvastatin (Atorvastatin Calcium), 1 TAB PO DAILY Calcium Acetate (Phosphate Bin (Phoslo 667 Mg), 1 CAP PO TID Cholecalciferol (Vitamin D3), 1 CAP PO DAILY Furosemide (Furosemide), 1 TAB PO DAILY Insulin Aspart (Novolog Penfill), 60 UNITS SQ BID Insulin Detemir (Levemir), 80 UNITS SC HS Metoprolol Succ (Toprol Xl) (Toprol-Xl), 50 MG PO QAM Ranitidine Hcl (Zantac), 1 TAB PO DAILY Sodium Bicarbonate (Sodium Bicarbonate), 1 TAB PO BID Tamsulosin HCl (Tamsulosin HCl), 1 CAP PO HS Scheduled PRN Ipratropium [place] (Atrovent Hfa), 2 PUFFS INH QID PRN for Shortness of Breath Ipratropium-Albuterol (Duoneb), 1 TREATMENT INH Q4H PRN for Shortness of Breath Meclizine HCl (Meclizine HCl), 1 TAB PO Q4H PRN for Dizziness or Vertigo Trazodone HCl (Trazodone HCl), 1 TAB PO DAILY PRN for Pain Review of Systems Constitutional: + weight loss, No chills, No fever, No sweats Respiratory: No cough, No dyspnea on exertion, No shortness of breath Cardiovascular: No chest pain, No palpitations Abdomen: + constipation, + nausea, + vomiting, No diarrhea, No pain Musculoskeletal: + calf pain (left sided), + swelling (RLE), No joint pain Genitourinary - Male: + problem reported (does make some urine), No hematuria Neurologic: + numbness/tingling, No balance problems Endocrine: + fatigue Integumentary: + problem reported (+redness and swelling of the RLE), No itch, No rash Physical Exam Vital Signs Date Time Temp Pulse Resp B/P Pulse Ox O2 Delivery O2 Flow Rate FiO2 06/02/16 12:10 93 Room Air 06/02/16 10:54 99 20 155/62 93 Room Air 06/02/16 10:04 100 06/02/16 09:46 93 Room Air 06/02/16 09:39 38.2 98 20 149/64 93 Room Air General Appearance: WD/WN, + mild distress, + obese Head: normocephalic, atraumatic Eyes: PERRL, EOMI ENT: hearing grossly normal, pharynx normal Neck: supple, no JVD Respiratory/Chest: chest non-tender, normal breath sounds, no respiratory distress, no accessory muscle use, + pertinent finding (on room air) Cardiovascular: regular rate, rhythm, no JVD, no murmur Abdomen/GI: non tender, soft, no organomegaly, + pertinent finding (hypoactive bowel sounds) Back: normal inspection Extremities/Musculoskelatal: + pertinent finding (+ LUE AVF with palpable thrill, + RLE with erythema extending up to middle of the castellon, + edema 2+ nonpitting, pain with palpation. LLE with palpation of the calf muscle. ) Neurologic/Psych: alert, normal reflexes, oriented x 3 Skin: warm/dry Diagnostics Laboratory Results Results Past 24 Hours Test 06/02/16 09:59 06/02/16 10:50 06/02/16 10:58 06/02/16 11:00 Range/Units Creatine Kinase MB Ratio 0.9 0-3.0 White Blood Count 23.15 4.8-10.8 K/uL Red Blood Count 3.37 4.7-6.1 M/uL Hemoglobin 10.5 14.0-18.0 g/dL Hematocrit 30.7 42-52 % Mean Corpuscular Volume 91.1 80-100 fL Mean Corpuscular Hemoglobin 31.2 25-34 pg Mean Corpuscular Hemoglobin Concent 34.2 32-36 g/dl Platelet Count 343 130-400 K/uL Mean Platelet Volume 8.7 7.4-10.4 fL Neutrophils (%) (Auto) 82.7 % Lymphocytes (%) (Auto) 8.2 % Monocytes (%) (Auto) 8.6 % Eosinophils (%) (Auto) 0.0 % Basophils (%) (Auto) 0.1 % Neutrophils # (Auto) 19.13 1.4-6.5 K/uL Lymphocytes # (Auto) 1.90 1.2-3.4 K/uL Monocytes # (Auto) 1.99 0.11-0.59 K/uL Eosinophils # (Auto) 0.01 0-0.5 K/uL Basophils # (Auto) 0.03 0-0.2 K/uL RDW Standard Deviation 46.9 36.4-46.3 fL RDW Coefficient of Variation 14.0 11.5-14.5 % Immature Granulocyte % (Auto) 0.4 % Immature Granulocyte # (Auto) 0.09 0.00-0.02 K/uL Prothrombin Time 11.6 9.0-12.0 SECONDS Prothromb Time International Ratio 1.1 0.9-1.1 Activated Partial Thromboplast Time 26.8 21.0-31.0 SECONDS Partial Thromboplastin Ratio 1.0 Sodium Level 130 136-145 mmol/L Potassium Level 3.9 3.5-5.1 mmol/L Chloride Level 88 98-107 mmol/L Carbon Dioxide Level 26 21-32 mmol/L Anion Gap 16.0 3-11 mmol/L Blood Urea Nitrogen 36 7-18 mg/dl Creatinine 5.90 0.60-1.40 mg/dl Est Creatinine Clear Calc Drug Dose 14.1 ml/min Estimated GFR () 10.0 Estimated GFR (Non- 8.6 BUN/Creatinine Ratio 6.2 10-20 Random Glucose 172 70-99 mg/dl Calcium Level 9.0 8.5-10.1 mg/dl Total Bilirubin 1.3 0.2-1 mg/dl Direct Bilirubin 0.4 0-0.2 mg/dl Aspartate Amino Transf (AST/SGOT) 32 15-37 U/L Alanine Aminotransferase (ALT/SGPT) 24 12-78 U/L Alkaline Phosphatase 157 45-117 U/L Total Creatine Kinase 341 39-308 U/L Creatine Kinase MB 3.0 0.5-3.6 ng/ml Total Protein 8.0 6.4-8.2 gm/dl Albumin 2.6 3.4-5.0 gm/dl Lipase 141 73-393 U/L Bedside Troponin I 0.040 0-0.045 ng/ml Bedside Lactic Acid Venous 1.49 0.90-1.70 mmol/L Microbiology Results 06/02/16 Blood Culture, Received Pending 06/02/16 Blood Culture, Received Pending Diagnostic Radiology CHEST ONE VIEW PORTABLE HISTORY: Atypical CHEST PAIN COMPARISON: Chest 03/20/2015. FINDINGS: Mild diffuse interstitial thickening, unchanged. The heart is normal in size. No pleural effusions. No pneumothorax. No new focal lung consolidations. IMPRESSION: Stable chronic interstitial thickening. No acute process within the chest. Electronically signed by: Theodore Honeycutt M.D. 06/02/2016 10:50 AM Dictated Date/Time: 06/02/2016 10:47 AM The status of this report is Signed. EKG Vent. rate 100 BPM HI interval 172 ms QRS duration 92 ms QT/QTc 356/459 ms P-R-T axes 70 64 92 NSR with premature supraventricular complexes. No signs of ST wave inversions or ischemic changes. Impression Assessment and Plan This is a 75 yo M with PMHx of DM II, HTN, Hyperlipidemia, COPD, smoking history of 2 ppd x 35 years, quit ~20yrs ago, monoclonal gammopathy, ESRD on HD with regular schedule m/w/f, gout, and chronic right lower extremity foot wound which he has followed with wound clinic and podiatry for. RLE Cellulitis Possible osteomyelitis RLE R plantar surface of the 5th toe wound - Admit to med/surg - Already administered on vancomycin while in HD this morning. Continue on for now, will also add zosyn - WBC=23.15, with left shift 19K - Will obtain MRI foot, Xray ordered but final report still in process - Spoke with Dr. Haque over the phone: plans to rearrange her clinic schedule and hopefully take the patient for surgery tomorrow afternoon. - Pain control with morphine sulfate, tramadol, and percocet - Will make NPO after midnight L calf pain - Will check a doppler ultrasound with tenderness on palpation ESRD on HD - Nephrology consulted, finished dialysis treatment this morning - Normal schedule is m/w/f COPD - Pt does not require supplemental O2 - Cont home inhaler tx Constipation - Pt has had a diminished appetite for 2 weeks, last bm was 3 days ago, will order mirilax and dulcolax supp. HTN - Continue on home meds: amlodipine 5 mg daily, lasix 40 mg PO daily, metoprolol succ 50 mg daily Hyperlipidemia: - Cont atorvastatin 20 mg daily GERD - continue ranitidine 150 mg HS DVT ppx: Teds, scds, heparin sq CODE STATUS: FULL CODE Disposition: From home, d/c after surgical procedure, will need wound/podiatry follow up Level of Care Med/Surg Advanced Directives Existing Living Will: No Existing Power of Acoustical Carpenter: No Resuscitation Status FULL RESUSCITATION VTE Prophylaxis VTE Risk Assessment Done? Y/N: Yes Risk Level: Low Given or contraindicated: Unfractionated heparin SQ, T.E.D. Stockings, SCD's
--- NOTE | 2016-06-02 14:56 | DIAGNOSTIC IMAGING REPORT ---
ULTRASOUND LEFT LOWER EXTREMITY VENOUS CLINICAL HISTORY: Left calf pain. COMPARISON STUDY: Bilateral lower extremity venous ultrasound dated 06/22/2013. TECHNIQUE: Real-time, grayscale, and color Doppler sonography of the deep veins of the left lower extremity was performed from the inguinal crease to the calf. Compression and augmentation were utilized. FINDINGS: There is linear echogenic stranding identified within the left posterior tibial vein in the calf. This likely represents trace thrombus, and is likely chronic. The remaining calf vessels are clear. There is no sonographic evidence of above knee Deep venous thrombosis identified in the left lower extremity. The common femoral, superficial femoral, and popliteal veins are patent and normally compressible. The greater saphenous vein and the profunda femoris vein at the junction with the common femoral vein are clear. The visualized calf veins are patent. IMPRESSION: 1. There is trace and likely chronic deep venous thrombosis identified within the left calf in the posterior tibial vein. 2. The deep veins of the left lower extremity are otherwise clear. Electronically signed by: Allan Guerrero M.D. 06/02/2016 2:53 PM Dictated Date/Time: 06/02/2016 2:52 PM
[2016-06-02] MEDS ORDERED: VANCOMYCIN CONSULT ACTIVE PRN (15:00)
[2016-06-02] MEDS ORDERED: PIPERACILL/TAZOBAC CONSULT ACTIVE PRN (15:00)
[2016-06-02] MEDS: MoRPHine SULFATE 2 MG/ML CARP IV PRN ×2 (15:06→20:05)
--- NOTE | 2016-06-02 15:45 | Pharmacy Progress Note ---
Pharmacy Antibiotic Consult Date of Service: Jun 02, 2016. Pharmacy Dosing Scope Pharmacy is consulted to initiate vancomycin and piperacillin/tazobactam IV dosing therapy, order appropriate labs and adjust drug dose/frequency. Subjective The patient is a 75 year old male admitted on 06/02/16 with RLE cellulitis, r/o osteomyelitis. Objective Height (Feet): 6 Height (Inches): 1.00 Weight (Kilograms): 107.000 Lab Results (24hrs): Laboratory Tests Test 06/02/16 10:50 BUN/Creatinine Ratio 6.2 Blood Urea Nitrogen 36 mg/dl Creatinine 5.90 mg/dl White Blood Count 23.15 K/uL Red Blood Count 3.37 M/uL Hemoglobin 10.5 g/dL Hematocrit 30.7 % Mean Corpuscular Volume 91.1 fL Mean Corpuscular Hemoglobin 31.2 pg Mean Corpuscular Hemoglobin Concent 34.2 g/dl Platelet Count 343 K/uL Mean Platelet Volume 8.7 fL Neutrophils (%) (Auto) 82.7 % Lymphocytes (%) (Auto) 8.2 % Monocytes (%) (Auto) 8.6 % Eosinophils (%) (Auto) 0.0 % Basophils (%) (Auto) 0.1 % Neutrophils # (Auto) 19.13 K/uL Lymphocytes # (Auto) 1.90 K/uL Monocytes # (Auto) 1.99 K/uL Eosinophils # (Auto) 0.01 K/uL Basophils # (Auto) 0.03 K/uL Item Value Date Time Bedside Lactic Acid Venous 1.49 mmol/L 06/02/16 1100 Micro Results: Item Value Date Time Blood Culture Received 06/02/16 1050 Blood Pending Blood Culture Received 06/02/16 1110 Blood Pending Recent Pertinent Medications Item Value Date Time Piperacillin Sod/ 4.5 gm 06/02/16 0959 Tazobactam Sod NOW STAT/IV 06/02/16 1132 (Zosyn Iv) ONE TIME DOSE IN ED Assessment & Plan Assessment: * 75 y/o with chronic foot wound, 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 * h/o T2DM, HTN, HLD, COPD * ESRD on HD * received unknown dose of vancomycin today with HD 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 Plan: * Begin empiric treatment with vancomycin and piperacillin/tazobactam for the treatment of cellulitis, r/o osteo Vancomycin: * Hold dosing until level obtained as patient received dose today with HD * Ordered a post-HD level Post-HD vancomycin level (mcg/mL) Post-HD vancomycin IV dose < 10 750 1000 mg 10 - 15 500 750 mg 15.1 - 20 0 500 mg > 20 Hold vancomycin * Order random level for 06/03 * though this may be elevated, unsure if patient is producing urine/clearing vancomycin Piperacillin/tazobactam: * 4.5g IV x1 dose given in ED * Continue 4.5g IV q12h for ESRD with HD * higher dose chosen until osteo excluded Pharmacy will continue to follow and will adjust dose/frequency as necessary. Thank you
[2016-06-02 15:55] VITALS: BP 162/58; PULSE 104; TEMP 36.6; O2SAT 100
[2016-06-02 16:00] VITALS: O2SAT 100
[2016-06-02] MEDS: OXYCODONE/ACETAMINOPHEN 5-325 TAB PO PRN (16:13)
[2016-06-02] MEDS ORDERED: GLUCAGON FOR INJ 1 MG VIAL SQ PRN ×2 (17:00→19:15)
[2016-06-02] MEDS ORDERED: DEXTROSE 50% 50 ML SYR IV PRN ×2 (17:00→19:15)
[2016-06-02] MEDS ORDERED: GLUCOSE 10 TABS/TUBE PO PRN ×2 (17:00→19:15)
--- NOTE | 2016-06-02 17:40 | Anesthesiology Progress Note ---
Anesthesia Progress Note Date of Service Jun 02, 2016. Progress Notes This is a 75 y/o w male w/ diabetic foot ulcer for I & D. PMHx is sig. for ESRD on H/D,PVD,Gout,GERD.monoclonal Gammopathy,IDDM,HTN,Hyperlipidemia,COPD,anemia and Diabetic PN.Discussed anesthesia w/pt,risks vs benefits,all questions answered.Informed consent obtained.
[2016-06-02] MEDS: CALCIUM ACETATE 667MG GELCAP PO SCH (17:46)
--- NOTE | 2016-06-02 17:56 | Nephrology Consultation ---
Nephrology Consultation Date & Providers Date of Consultation: Jun 02, 2016. Primary Care Provider: Obi Mendez M.D. Referring Provider: Reason for Consultation Provide HD for this patient w/ ESRD admitted w/ cellulitis involving his right foot History of Present Illness Mr. Carmichael is a 75 year old white male who is seen at the request of Dr. Pfeiffer to provide inpatient HD and assist w/ his medical management. 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 He has been on HD since 08/29 and dialyzes MWF at the [facility] dialysis unit. His medical history includes AODM, HTN , PVD, Gout, IgM [place] monoclonal gammopathy. Mr. Carmichael has developed a nonhealing ulcer on the lateral plantar surface of his right foot. Earlier this month he underwent LE angiography. Only mild to moderate vascular disease identified. No intervention was needed. Mr. Carmichael has been closely monitored by Podiatry. Today he presented to HD and was found to be febrile and complained of right foot pain. He was given IV Vancomycin by the rounding physician. Following treatment Mr. Carmichael was transported to [facility] ED where he was diagnosed w/ R foot cellulitis. He was admitted for IV antibiotic therapy. Podiatry has been consulted and may perform debridement tomorrow. Past Medical/Surgical History Medical: # ESRD on HD MWF at [facility] # HTN # PVD # IgM [place] monoclonal gammopathy # Gout Allergies Coded Allergies: No Known Allergies (Verified , 06/02/16) Inpatient Medications Current Inpatient Medications Medications (Trade) Dose Ordered Sig/Eliseo Route Start Time Stop Time Status Last Admin Dose Admin Heparin Sodium (Porcine) (Heparin Sq 5000 Unit/0.5ml) 5,000 unit Q8 SQ 06/02/16 22:00 07/02/16 21:59 Acetaminophen (Tylenol Tab) 650 mg Q4H PRN PO 06/02/16 12:30 07/02/16 12:29 Magnesium Hydroxide (Milk Of Magnesia Susp) 30 ml Q6H PRN PO 06/02/16 12:30 07/02/16 12:29 Polyethylene (Miralax Powder Packet) 17 gm DAILY PO 06/03/16 08:00 07/03/16 08:59 Ondansetron HCl (Zofran Inj) 4 mg Q6H PRN IV 06/02/16 12:30 07/02/16 12:29 06/02/16 17:48 4 MG Allopurinol (Zyloprim Tab) 100 mg HS PO 06/02/16 21:00 07/02/16 20:59 Amlodipine Besylate (Norvasc Tab) 5 mg QAM PO 06/03/16 08:00 07/03/16 08:59 Aspirin (Ecotrin Tab) 81 mg QAM PO 06/03/16 08:00 07/03/16 08:59 Atorvastatin Calcium (Lipitor Tab) 20 mg DAILY PO 06/03/16 08:00 07/03/16 08:59 Calcium Acetate (Phoslo Cap) 667 mg TIDM PO 06/02/16 17:00 07/02/16 16:59 Furosemide (Lasix Tab) 40 mg DAILY PO 06/03/16 08:00 07/03/16 08:59 Insulin Aspart (novoLOG ASPART) 60 units BID SQ 06/02/16 20:00 07/02/16 20:59 UNV Ipratropium [place] (Atrovent Hfa Inhaler) 2 puffs QID PRN INH 06/02/16 12:30 07/02/16 12:29 Albuterol/ Ipratropium (Duoneb) 3 ml Q4H PRN INH 06/02/16 12:30 07/02/16 12:29 Meclizine HCl (Antivert Tab) 25 mg Q4H PRN PO 06/02/16 12:30 07/02/16 12:29 Metoprolol Succinate (Toprol Xl Tab) 50 mg QAM PO 06/03/16 08:00 07/03/16 08:59 Sodium Bicarbonate (Sodium Bicarbonate Tab) 650 mg BID PO 06/02/16 20:00 07/02/16 20:59 Tamsulosin HCl (Flomax Cap) 0.4 mg HS PO 06/02/16 21:00 07/02/16 20:59 Cholecalciferol (Vitamin D Tab) 2,000 inter.unit QAM PO 06/03/16 08:00 07/03/16 08:59 Insulin Detemir (Levemir Flexpen/ FlexTouch) 80 unit HS SC 06/02/16 21:00 07/02/16 20:59 Ranitidine HCl (zANTac TAB) 300 mg QAM PO 06/03/16 08:00 07/03/16 08:59 Oxycodone/ Acetaminophen (Percocet 5-325mg Tab) 1 tab Q4H PRN PO 06/02/16 12:30 06/16/16 12:29 06/02/16 16:13 1 TAB Morphine Sulfate (MoRPHine SULFATE INJ) 2 mg Q2H PRN IV 06/02/16 12:30 06/16/16 12:29 06/02/16 15:06 2 MG Tramadol HCl 50 mg 50 mg Q4H PRN PO 06/02/16 12:30 07/02/16 12:29 Piperacillin Sod/ Tazobactam Sod/ Dextrose (Zosyn Iv/D5 100ml) 120 ml @ 30 mls/hr Q12H IV 06/02/16 20:00 07/14/16 19:59 Piperacillin Sod/ Tazobactam Sod (Consult) 1 ea UD PRN N/A 06/02/16 15:00 07/02/16 14:59 Vancomycin HCl (Consult) 1 ea UD PRN N/A 06/02/16 15:00 07/02/16 14:59 Glucose (Glucose 40% Gel) 15-30 GRAMS 15 GRAMS... UD PRN PO 06/02/16 17:00 07/02/16 16:59 Glucose (Glucose Chew Tab) 4-8 Tablets 4 Tabl... UD PRN PO 06/02/16 17:00 07/02/16 16:59 Dextrose (Dextrose 50% 50ML Syringe) 25-50ML OF 50% DW IV FOR... UD PRN IV 06/02/16 17:00 07/02/16 16:59 Glucagon (Glucagon Inj) 1 mg UD PRN SQ 06/02/16 17:00 07/02/16 16:59 Family History FH: diabetes mellitus AUNT FH: stroke GRANDMOTHER Negative for CKD / ESRD Social History Smoking Status: Former Smoker Drug Use: none Marital Status: Housing Status: lives with family Occupation: retired . Retired. Former smoker (2ppd x 45 years, quit 2002) Review of Systems Constitutional: + fever Respiratory: No cough Abdomen: No pain Integumentary: + problem reported (swelling and pain involving right foot) A complete review of systems was performed. Pertinent positives are noted above. All other systems are negative. Physical Exam Date Time Temp Pulse Resp B/P Pulse Ox O2 Delivery O2 Flow Rate FiO2 06/02/16 15:55 36.6 104 20 162/58 100 Room Air 06/02/16 15:01 85 18 119/46 93 Room Air 06/02/16 13:06 37.0 06/02/16 12:51 100 20 135/54 94 Room Air 06/02/16 12:10 93 Room Air 06/02/16 10:54 99 20 155/62 93 Room Air 06/02/16 10:04 100 06/02/16 09:46 93 Room Air 06/02/16 09:39 38.2 98 20 149/64 93 Room Air General Appearance: + mild distress Head: atraumatic Eyes: PERRL, EOMI Neck: no adenopathy Respiratory/Chest: lungs clear, no respiratory distress Cardiovascular: + tachycardia Abdomen/GI: normal bowel sounds, non tender, soft Back: no muscle spasm Extremities/Musculoskelatal: + swelling (1cm ulcer involving the lateral plantar surface of the right foot. Erythema extending medially across the foot and above the malleolus) Neurologic/Psych: alert, oriented x 3 Laboratory Results Last 24 Hours Test 06/02/16 09:59 06/02/16 10:50 06/02/16 10:58 06/02/16 11:00 Creatine Kinase MB Ratio 0.9 White Blood Count 23.15 K/uL Red Blood Count 3.37 M/uL Hemoglobin 10.5 g/dL Hematocrit 30.7 % Mean Corpuscular Volume 91.1 fL Mean Corpuscular Hemoglobin 31.2 pg Mean Corpuscular Hemoglobin Concent 34.2 g/dl Platelet Count 343 K/uL Mean Platelet Volume 8.7 fL Neutrophils (%) (Auto) 82.7 % Lymphocytes (%) (Auto) 8.2 % Monocytes (%) (Auto) 8.6 % Eosinophils (%) (Auto) 0.0 % Basophils (%) (Auto) 0.1 % Neutrophils # (Auto) 19.13 K/uL Lymphocytes # (Auto) 1.90 K/uL Monocytes # (Auto) 1.99 K/uL Eosinophils # (Auto) 0.01 K/uL Basophils # (Auto) 0.03 K/uL RDW Standard Deviation 46.9 fL RDW Coefficient of Variation 14.0 % Immature Granulocyte % (Auto) 0.4 % Immature Granulocyte # (Auto) 0.09 K/uL Prothrombin Time 11.6 SECONDS Prothromb Time International Ratio 1.1 Activated Partial Thromboplast Time 26.8 SECONDS Partial Thromboplastin Ratio 1.0 Sodium Level 130 mmol/L Potassium Level 3.9 mmol/L Chloride Level 88 mmol/L Carbon Dioxide Level 26 mmol/L Anion Gap 16.0 mmol/L Blood Urea Nitrogen 36 mg/dl Creatinine 5.90 mg/dl Est Creatinine Clear Calc Drug Dose 14.1 ml/min Estimated GFR () 10.0 Estimated GFR (Non- 8.6 BUN/Creatinine Ratio 6.2 Random Glucose 172 mg/dl Calcium Level 9.0 mg/dl Total Bilirubin 1.3 mg/dl Direct Bilirubin 0.4 mg/dl Aspartate Amino Transf (AST/SGOT) 32 U/L Alanine Aminotransferase (ALT/SGPT) 24 U/L Alkaline Phosphatase 157 U/L Total Creatine Kinase 341 U/L Creatine Kinase MB 3.0 ng/ml Total Protein 8.0 gm/dl Albumin 2.6 gm/dl Lipase 141 U/L Bedside Troponin I 0.040 ng/ml Bedside Lactic Acid Venous 1.49 mmol/L Test 06/02/16 16:33 06/02/16 17:05 Bedside Glucose 179 mg/dl Impression (1) End-stage renal disease on hemodialysis (2) Cellulitis of right foot (3) Sepsis (4) Monoclonal gammopathy (5) Diabetes mellitus, type II Recommendations END STAGE RENAL DISEASE: -- Volume status is acceptable at this time. Serum sodium is mildly depressed. Will monitor. No acute indication for HD tonight -- AVF w/ high pitched bruit. Will order doppler to assess for venous stenosis ID: -- Case discussed w/ primary service by telephone this evening. X-ray of foot shows soft tissue swelling and possible gas. Patient is scheduled for an MRI this evening. Podiatry has scheduled possible debridement in am. If gas is present he may require earlier intervention. -- Patient was given 1g IV Vanco at HD unit this am. He is now on IV Zosyn dosed as per pharmacy billing adjudicator -- Will ask field staff to outline area of erythema to monitor clinically for progression / resolution -- Await results of blood cultures
[2016-06-02] MEDS ORDERED: GLUCOSE 40% GEL 15 GM TUBE PO PRN (19:15)
[2016-06-02] MEDS: ALLOPURINOL 100 MG TAB PO SCH (19:58)
[2016-06-02] MEDS: TAMSULOSIN HCL 0.4 MG CAP PO SCH (19:58)
[2016-06-02] MEDS: SODIUM BICARBONATE 650 MG TAB PO SCH (19:58)
[2016-06-02 20:00] VITALS: O2SAT 100
[2016-06-02] MEDS ORDERED: INSULIN ASPART 100 UNITS/ML 3 ML PEN SQ SCH (20:00)
[2016-06-02] MEDS: PIPERACILL/TAZOBAC IV 4.5 GM in DEXTROSE 5% 100ML 100 ML IV SCH (20:05)
[2016-06-02] MEDS: INSULIN DETEMIR FLEXPEN/FLEX TOUCH 100 UNITS/ML 3ML SC SCH ×2 (20:20→21:00)
[2016-06-02] MEDS: INSULIN ASPART 100 UNITS/ML 3 ML PEN SC SCH (20:21)
[2016-06-02] MEDS ORDERED: VANCOMYCIN INJ 1,000 MG in SODIUM CHLORIDE 0.9% 250ML 250 ML IV ONE (20:30)
[2016-06-02] MEDS: HEPARIN SOD 5000 UNIT/0.5 ML CARP SQ SCH (22:00)
[2016-06-02 23:57] VITALS: BP 107/56; PULSE 89; TEMP 36.7; O2SAT 99
[2016-06-03] VITALS (11 sets, daily range): BP systolic 95–142; BP diastolic 55–75; PULSE 62–136; TEMP 36.5–38.4; O2SAT 91–100
[2016-06-03] MEDS: HEPARIN SOD 5000 UNIT/0.5 ML CARP SQ SCH ×3 (06:00→20:37)
[2016-06-03 07:11] LABS: HEMATOCRIT 27.5 % (42-52); MEAN CELL VOLUME 91.7 fL (80-100); MEAN CORPUSCULAR HEMOGLOBIN 31.3 pg (25-34); MEAN CORPUSCULAR HGB CONC 34.2 g/dl (32-36); MEAN PLATELET VOLUME 8.5 fL (7.4-10.4); PLATELET COUNT 333 K/uL (130-400); WHITE BLOOD COUNT 18.81 K/uL (4.8-10.8)
--- NOTE | 2016-06-03 07:15 | DIAGNOSTIC IMAGING REPORT ---
Duplex arterial Doppler DUPLEX HEMODIALYSIS ACCESS CLINICAL HISTORY: high pitched bruit LUE AVF fistula TECHNIQUE: Duplex Doppler COMPARISON STUDY: FINDINGS: Fistula at the aspect of the wrist appears to be patent. Velocities are increased suggesting a moderate degree of narrowing. Low subclavian vein is patent. No thrombus within the subclavian vein. IMPRESSION: Patient's fistula is patent although there is suggestion of a small amount of nonocclusive thrombus at the level of the antecubital fossa. The fistula itself is significant suggests a significant degree of stenosis. The left subclavian vein is widely patent Electronically signed by: Quentin Stephenson M.D. 06/03/2016 7:12 AM Dictated Date/Time: 06/03/2016 6:58 AM
[2016-06-03] MEDS: PIPERACILL/TAZOBAC IV 4.5 GM in DEXTROSE 5% 100ML 100 ML IV SCH ×2 (07:32→20:30)
[2016-06-03] MEDS: MoRPHine SULFATE 2 MG/ML CARP IV PRN ×2 (07:33→16:38)
[2016-06-03] MEDS: CALCIUM ACETATE 667MG GELCAP PO SCH ×3 (08:00→16:45)
[2016-06-03] MEDS ORDERED: VANCOMYCIN INJ 1,000 MG in SODIUM CHLORIDE 0.9% 250ML 250 ML IV SCH (08:00)
[2016-06-03 08:13] LABS: CALCIUM 9.1 mg/dl (8.5-10.1); CREATININE 7.8 mg/dl (0.60-1.40); POTASSIUM 4.2 mmol/L (3.5-5.1)
[2016-06-03] MEDS: ATORVASTATIN 20 MG TAB PO SCH (08:25)
[2016-06-03] MEDS: SODIUM BICARBONATE 650 MG TAB PO SCH (08:25)
[2016-06-03] MEDS: FUROSEMIDE 40 MG TAB PO SCH (08:26)
[2016-06-03] MEDS: AMLODIPINE BESYLATE 5 MG TAB PO SCH (08:26)
[2016-06-03] MEDS: ASPIRIN 81 MG ECTAB PO SCH (08:26)
[2016-06-03] MEDS: METOPROLOL SUCC 50MG EXT REL TAB PO SCH (08:27)
[2016-06-03] MEDS: RANITIDINE HCL 150 MG TAB PO SCH (08:27)
[2016-06-03] MEDS: INSULIN ASPART 100 UNITS/ML 3 ML PEN SC SCH ×4 (08:28→20:37)
--- NOTE | 2016-06-03 08:44 | Progress Note ---
Subjective Date of Service: Jun 03, 2016. Subjective Pt is grumpy but agreeable to the treatment plan ahead, he is aware that surgery my also include bone debridement Problem List Medical Problems: (1) Cellulitis of right foot Status: Acute (2) Sepsis Status: Acute Review of Systems Constitutional: No chills, No fever Respiratory: + dyspnea on exertion, No cough, No shortness of breath Cardiac: + edema, No chest pain Abdomen: No diarrhea, No nausea, No pain, No vomiting Musculoskeletal: + joint pain Male : No dysuria, No urinary frequency Neurologic: No memory loss, No weakness Objective Vital Signs Date Time Temp Pulse Resp B/P Pulse Ox O2 Delivery O2 Flow Rate FiO2 06/03/16 07:45 99 Room Air 06/03/16 07:33 36.5 125 18 115/55 99 Room Air 06/03/16 00:00 100 Room Air 06/02/16 23:57 36.7 89 16 107/56 99 Room Air 06/02/16 20:00 100 Room Air 06/02/16 16:00 100 Room Air 06/02/16 15:55 36.6 104 20 162/58 100 Room Air 06/02/16 15:01 85 18 119/46 93 Room Air 06/02/16 13:06 37.0 06/02/16 12:51 100 20 135/54 94 Room Air 06/02/16 12:10 93 Room Air 06/02/16 10:54 99 20 155/62 93 Room Air 06/02/16 10:04 100 06/02/16 09:46 93 Room Air 06/02/16 09:39 38.2 98 20 149/64 93 Room Air Physical Exam General Appearance: WD/WN, + mild distress Neck: supple, no JVD Respiratory/Chest: chest non-tender, lungs clear, normal breath sounds Cardiovascular: regular rate, rhythm, no murmur Abdomen: normal bowel sounds, non tender, soft Extremities: + pedal edema, + swelling Neurologic/Psychiatric: alert, oriented x 3 Laboratory Results Last 24 Hours Test 06/02/16 09:59 06/02/16 10:50 06/02/16 10:58 06/02/16 11:00 Creatine Kinase MB Ratio 0.9 White Blood Count 23.15 K/uL Red Blood Count 3.37 M/uL Hemoglobin 10.5 g/dL Hematocrit 30.7 % Mean Corpuscular Volume 91.1 fL Mean Corpuscular Hemoglobin 31.2 pg Mean Corpuscular Hemoglobin Concent 34.2 g/dl Platelet Count 343 K/uL Mean Platelet Volume 8.7 fL Neutrophils (%) (Auto) 82.7 % Lymphocytes (%) (Auto) 8.2 % Monocytes (%) (Auto) 8.6 % Eosinophils (%) (Auto) 0.0 % Basophils (%) (Auto) 0.1 % Neutrophils # (Auto) 19.13 K/uL Lymphocytes # (Auto) 1.90 K/uL Monocytes # (Auto) 1.99 K/uL Eosinophils # (Auto) 0.01 K/uL Basophils # (Auto) 0.03 K/uL RDW Standard Deviation 46.9 fL RDW Coefficient of Variation 14.0 % Immature Granulocyte % (Auto) 0.4 % Immature Granulocyte # (Auto) 0.09 K/uL Prothrombin Time 11.6 SECONDS Prothromb Time International Ratio 1.1 Activated Partial Thromboplast Time 26.8 SECONDS Partial Thromboplastin Ratio 1.0 Sodium Level 130 mmol/L Potassium Level 3.9 mmol/L Chloride Level 88 mmol/L Carbon Dioxide Level 26 mmol/L Anion Gap 16.0 mmol/L Blood Urea Nitrogen 36 mg/dl Creatinine 5.90 mg/dl Est Creatinine Clear Calc Drug Dose 14.1 ml/min Estimated GFR () 10.0 Estimated GFR (Non- 8.6 BUN/Creatinine Ratio 6.2 Random Glucose 172 mg/dl Calcium Level 9.0 mg/dl Total Bilirubin 1.3 mg/dl Direct Bilirubin 0.4 mg/dl Aspartate Amino Transf (AST/SGOT) 32 U/L Alanine Aminotransferase (ALT/SGPT) 24 U/L Alkaline Phosphatase 157 U/L Total Creatine Kinase 341 U/L Creatine Kinase MB 3.0 ng/ml Total Protein 8.0 gm/dl Albumin 2.6 gm/dl Lipase 141 U/L Bedside Troponin I 0.040 ng/ml Bedside Lactic Acid Venous 1.49 mmol/L Test 06/02/16 16:33 06/02/16 17:05 06/02/16 20:11 06/03/16 07:00 Bedside Glucose 179 mg/dl 201 mg/dl Random Vancomycin Level 9.2 mcg/ml 20.0 mcg/ml White Blood Count 18.81 K/uL Red Blood Count 3.00 M/uL Hemoglobin 9.4 g/dL Hematocrit 27.5 % Mean Corpuscular Volume 91.7 fL Mean Corpuscular Hemoglobin 31.3 pg Mean Corpuscular Hemoglobin Concent 34.2 g/dl RDW Standard Deviation 48.9 fL RDW Coefficient of Variation 14.3 % Platelet Count 333 K/uL Mean Platelet Volume 8.5 fL Sodium Level 130 mmol/L Potassium Level 4.2 mmol/L Chloride Level 90 mmol/L Carbon Dioxide Level 27 mmol/L Anion Gap 13.0 mmol/L Blood Urea Nitrogen 55 mg/dl Creatinine 7.80 mg/dl Est Creatinine Clear Calc Drug Dose 10.6 ml/min Estimated GFR () 7.1 Estimated GFR (Non- 6.2 BUN/Creatinine Ratio 7.0 Random Glucose 158 mg/dl Calcium Level 9.1 mg/dl Test 06/03/16 08:27 Bedside Glucose 134 mg/dl Assessment and Plan 75 M with diabetic foot infection at site of chronic wound, worsened after dialysis, PMHx of DM II, HTN, Hyperlipidemia, COPD, ESRD on HD m/w/f, gout, RLE diabetic foot infection/Cellulitis Possible osteomyelitis RLE R plantar surface of the 5th toe wound vancomycin while in HD add zosyn - MRI foot pending, Dr. Hart consult for possible surgical debridement ESRD on HD- Nephrology, m/w/f. fistulae was eval by doppler, stenosis suggested left pain, doppler suggests chronic DVT COPD- continue inhaled medicines, not on continuous oxygen yet Constipation mirilax and dulcolax supp. HTN amlodipine 5 mg daily, lasix 40 mg PO daily, metoprolol succ 50 mg daily Hyperlipidemia: atorvastatin 20 mg daily GERD ranitidine 150 mg HS DVT ppx: Teds, scds, heparin sq CODE STATUS: FULL CODE Disposition: From home, d/c after surgical procedure, will need wound/podiatry follow up
--- NOTE | 2016-06-03 09:51 | Nephrology Progress Note ---
Nephrology Progress Note Date of Service Jun 03, 2016. Chief Complaint Provide HD for this patient w/ ESRD admitted w/ cellulitis involving his right foot Subjective Mr. Carmichael was seen & examined in his hospital room this morning. He was afebrile overnight but complains of persistent right foot discomfort. He reports that he is scheduled for surgery at 1 pm today to dbride his foot ulcer. LUE AVF doppler shows venous stenosis. Discussed at length w/ Mr. Carmichael this morning. He is agreeable to vascular evaluation. Review of Systems Constitutional: No fever Cardiovascular: No chest pain Respiratory: No dyspnea at rest Abdomen: No nausea, No pain, No vomiting Extremities: + leg edema (right foot is swollen and erythematous) A complete review of systems was performed. Pertinent positives are noted above. All other systems are negative. Vital Signs Last 8 Hrs Date Time Temp Pulse Resp B/P Pulse Ox O2 Delivery O2 Flow Rate FiO2 06/03/16 07:45 99 Room Air 06/03/16 07:33 36.5 125 18 115/55 99 Room Air I & O 24-Hour Column 06/03/16 08:00 Intake Total 500 ml Balance 500 ml Last Recorded Weight Weight (Kilograms): 105.700 Physical Exam General Appearance: no apparent distress Head: normocephalic, atraumatic Eyes: PERRL, EOMI Neck: no adenopathy Respiratory/Chest: lungs clear, normal breath sounds Cardiovascular: regular rate, rhythm Abdomen/GI: normal bowel sounds, non tender, soft Extremities/Musculoskelatal: + pertinent finding (right foot remains swollen. Erythema appears to be receeding from line of demarcation. LUE AVF w/ soft high pitched bruit) Neurologic/Psych: alert, oriented x 3 Family History FH: diabetes mellitus AUNT FH: stroke GRANDMOTHER Negative for CKD / ESRD Social History Smoking Status: Unknown if ever smoked Drug Use: none Marital Status: Housing Status: lives with family Occupation: retired . Retired. Former smoker (2ppd x 45 years, quit 2002) Laboratory Results Past 24 Hours 06/02/16 10:50 Red Blood Count 3.37, Mean Corpuscular Volume 91.1, Mean Corpuscular Hemoglobin 31.2, Mean Corpuscular Hemoglobin Concent 34.2, Mean Platelet Volume 8.7, Neutrophils (%) (Auto) 82.7, Lymphocytes (%) (Auto) 8.2, Monocytes (%) (Auto) 8.6, Eosinophils (%) (Auto) 0.0, Basophils (%) (Auto) 0.1, Neutrophils # (Auto) 19.13, Lymphocytes # (Auto) 1.90, Monocytes # (Auto) 1.99, Eosinophils # (Auto) 0.01, Basophils # (Auto) 0.03 06/03/16 07:00 06/02/16 10:50 06/03/16 07:00 Test 06/02/16 09:59 06/02/16 10:50 06/02/16 10:58 06/02/16 11:00 Creatine Kinase MB Ratio (0-3.0) 0.9 (0-3.0) White Blood Count 23.15 K/uL (4.8-10.8) Red Blood Count 3.37 M/uL (4.7-6.1) Hemoglobin 10.5 g/dL (14.0-18.0) Hematocrit 30.7 % (42-52) Mean Corpuscular Volume 91.1 fL (80-100) Mean Corpuscular Hemoglobin 31.2 pg (25-34) Mean Corpuscular Hemoglobin Concent 34.2 g/dl (32-36) Platelet Count 343 K/uL (130-400) Mean Platelet Volume 8.7 fL (7.4-10.4) Neutrophils (%) (Auto) 82.7 % Lymphocytes (%) (Auto) 8.2 % Monocytes (%) (Auto) 8.6 % Eosinophils (%) (Auto) 0.0 % Basophils (%) (Auto) 0.1 % Neutrophils # (Auto) 19.13 K/uL (1.4-6.5) Lymphocytes # (Auto) 1.90 K/uL (1.2-3.4) Monocytes # (Auto) 1.99 K/uL (0.11-0.59) Eosinophils # (Auto) 0.01 K/uL (0-0.5) Basophils # (Auto) 0.03 K/uL (0-0.2) RDW Standard Deviation 46.9 fL (36.4-46.3) RDW Coefficient of Variation 14.0 % (11.5-14.5) Immature Granulocyte % (Auto) 0.4 % Immature Granulocyte # (Auto) 0.09 K/uL (0.00-0.02) Prothrombin Time 11.6 SECONDS (9.0-12.0) Prothromb Time International Ratio 1.1 (0.9-1.1) Activated Partial Thromboplast Time 26.8 SECONDS (21.0-31.0) Partial Thromboplastin Ratio 1.0 Anion Gap 16.0 mmol/L (3-11) Est Creatinine Clear Calc Drug Dose 14.1 ml/min Estimated GFR () 10.0 Estimated GFR (Non- 8.6 BUN/Creatinine Ratio 6.2 (10-20) Calcium Level 9.0 mg/dl (8.5-10.1) Total Bilirubin 1.3 mg/dl (0.2-1) Direct Bilirubin 0.4 mg/dl (0-0.2) Aspartate Amino Transf (AST/SGOT) 32 U/L (15-37) Alanine Aminotransferase (ALT/SGPT) 24 U/L (12-78) Alkaline Phosphatase 157 U/L (45-117) Total Creatine Kinase 341 U/L (39-308) Creatine Kinase MB 3.0 ng/ml (0.5-3.6) Total Protein 8.0 gm/dl (6.4-8.2) Albumin 2.6 gm/dl (3.4-5.0) Lipase 141 U/L (73-393) Bedside Troponin I 0.040 ng/ml (0-0.045) Bedside Lactic Acid Venous 1.49 mmol/L (0.90-1.70) Test 06/02/16 16:33 06/02/16 17:05 06/02/16 20:11 06/03/16 07:00 Bedside Glucose 179 mg/dl (70-99) 201 mg/dl (70-99) Random Vancomycin Level 9.2 mcg/ml 20.0 mcg/ml Red Blood Count 3.00 M/uL (4.7-6.1) Mean Corpuscular Volume 91.7 fL (80-100) Mean Corpuscular Hemoglobin 31.3 pg (25-34) Mean Corpuscular Hemoglobin Concent 34.2 g/dl (32-36) RDW Standard Deviation 48.9 fL (36.4-46.3) RDW Coefficient of Variation 14.3 % (11.5-14.5) Mean Platelet Volume 8.5 fL (7.4-10.4) Anion Gap 13.0 mmol/L (3-11) Est Creatinine Clear Calc Drug Dose 10.6 ml/min Estimated GFR () 7.1 Estimated GFR (Non- 6.2 BUN/Creatinine Ratio 7.0 (10-20) Calcium Level 9.1 mg/dl (8.5-10.1) Test 06/03/16 08:27 Bedside Glucose 134 mg/dl (70-99) Allergies Coded Allergies: No Known Allergies (Verified , 06/02/16) Medications Current Inpatient Medications Medications (Trade) Dose Ordered Sig/Eliseo Route Start Time Stop Time Status Last Admin Dose Admin Heparin Sodium (Porcine) (Heparin Sq 5000 Unit/0.5ml) 5,000 unit Q8 SQ 06/02/16 22:00 07/02/16 21:59 Acetaminophen (Tylenol Tab) 650 mg Q4H PRN PO 06/02/16 12:30 07/02/16 12:29 06/03/16 06:19 650 MG Magnesium Hydroxide (Milk Of Magnesia Susp) 30 ml Q6H PRN PO 06/02/16 12:30 07/02/16 12:29 Polyethylene (Miralax Powder Packet) 17 gm DAILY PO 06/03/16 08:00 07/03/16 08:59 Ondansetron HCl (Zofran Inj) 4 mg Q6H PRN IV 06/02/16 12:30 07/02/16 12:29 06/02/16 17:48 4 MG Allopurinol (Zyloprim Tab) 100 mg HS PO 06/02/16 21:00 07/02/16 20:59 06/02/16 19:58 100 MG Amlodipine Besylate (Norvasc Tab) 5 mg QAM PO 06/03/16 08:00 07/03/16 08:59 06/03/16 08:26 5 MG Aspirin (Ecotrin Tab) 81 mg QAM PO 06/03/16 08:00 07/03/16 08:59 06/03/16 08:26 81 MG Atorvastatin Calcium (Lipitor Tab) 20 mg DAILY PO 06/03/16 08:00 07/03/16 08:59 06/03/16 08:25 20 MG Calcium Acetate (Phoslo Cap) 667 mg TIDM PO 06/02/16 17:00 07/02/16 16:59 Furosemide (Lasix Tab) 40 mg DAILY PO 06/03/16 08:00 07/03/16 08:59 06/03/16 08:26 40 MG Ipratropium [place] (Atrovent Hfa Inhaler) 2 puffs QID PRN INH 06/02/16 12:30 07/02/16 12:29 Albuterol/ Ipratropium (Duoneb) 3 ml Q4H PRN INH 06/02/16 12:30 07/02/16 12:29 Meclizine HCl (Antivert Tab) 25 mg Q4H PRN PO 06/02/16 12:30 07/02/16 12:29 Metoprolol Succinate (Toprol Xl Tab) 50 mg QAM PO 06/03/16 08:00 07/03/16 08:59 06/03/16 08:27 50 MG Sodium Bicarbonate (Sodium Bicarbonate Tab) 650 mg BID PO 06/02/16 20:00 07/02/16 20:59 06/03/16 08:25 650 MG Tamsulosin HCl (Flomax Cap) 0.4 mg HS PO 06/02/16 21:00 07/02/16 20:59 06/02/16 19:58 0.4 MG Cholecalciferol (Vitamin D Tab) 2,000 inter.unit QAM PO 06/03/16 08:00 07/03/16 08:59 Insulin Detemir (Levemir Flexpen/ FlexTouch) 80 unit HS SC 06/02/16 21:00 07/02/16 20:59 Ranitidine HCl (zANTac TAB) 300 mg QAM PO 06/03/16 08:00 07/03/16 08:59 06/03/16 08:27 300 MG Oxycodone/ Acetaminophen (Percocet 5-325mg Tab) 1 tab Q4H PRN PO 06/02/16 12:30 06/16/16 12:29 06/02/16 16:13 1 TAB Morphine Sulfate (MoRPHine SULFATE INJ) 2 mg Q2H PRN IV 06/02/16 12:30 06/16/16 12:29 06/03/16 07:33 2 MG Tramadol HCl 50 mg 50 mg Q4H PRN PO 06/02/16 12:30 07/02/16 12:29 Piperacillin Sod/ Tazobactam Sod/ Dextrose (Zosyn Iv/D5 100ml) 120 ml @ 30 mls/hr Q12H IV 06/02/16 20:00 07/14/16 19:59 06/03/16 07:32 30 MLS/HR Piperacillin Sod/ Tazobactam Sod (Consult) 1 ea UD PRN N/A 06/02/16 15:00 07/02/16 14:59 Vancomycin HCl (Consult) 1 ea UD PRN N/A 06/02/16 15:00 07/02/16 14:59 Glucose (Glucose 40% Gel) 15-30 GRAMS 15 GRAMS... UD PRN PO 06/02/16 17:00 07/02/16 16:59 Glucose (Glucose Chew Tab) 4-8 Tablets 4 Tabl... UD PRN PO 06/02/16 17:00 07/02/16 16:59 Dextrose (Dextrose 50% 50ML Syringe) 25-50ML OF 50% DW IV FOR... UD PRN IV 06/02/16 17:00 07/02/16 16:59 Glucagon (Glucagon Inj) 1 mg UD PRN SQ 06/02/16 17:00 07/02/16 16:59 Ondansetron HCl (Zofran Inj) 4 mg Q4H PRN IV 06/02/16 18:00 07/02/16 17:59 Insulin Aspart (novoLOG ASPART) SLIDING SCALE If C... ACHS SC 06/02/16 21:00 07/02/16 20:59 06/02/16 20:21 2 UNITS Impression (1) End-stage renal disease on hemodialysis (2) Cellulitis of right foot (3) Sepsis (4) Monoclonal gammopathy (5) Diabetes mellitus, type II Recommendations END STAGE RENAL DISEASE: -- Volume status is acceptable at this time. Serum sodium is mildly depressed. Will monitor. No acute indication for HD today. Will schedule next HD for am. Orders entered into EMR and HD RN notified. -- AVF w/ high pitched bruit. Doppler is suggestive of venous stenosis. Will ask vascular surgery to evaluate. Discussed at length w/ patient today. He is agreeable to vascular surgery evaluation. ID: -- Patient is scheduled for debridement of his right foot ulcer this afternoon -- Patient was given 1g IV Vanco at HD unit this am. He is now on IV Zosyn dosed as per pharmacy general manager -- Await results of blood cultures -- Await input from Podiatry
--- NOTE | 2016-06-03 10:48 | Clinical Documentation Query ---
QUERY 1 OF [address] RANDALL, In your clinical opinion is this patient being managed for: ( ) Sepsis, POA ( ) Other explanation of clinical findings (Please Explain) ( ) Unable to determine (Please Define) ( ) Need to Discuss ( X ) Not Agree The medical record reflects the following clinical findings, treatment, and risk factors. Clinical Indicators:75 yo male presenting with nausea, diabetic foot infection/cellulitis. WBC 23.15, neut 19K, temp 38.2, Hr 102. ER impression includes sepsis however the diagnosis of sepsis does not continue into the H/P or assessment/plan section of subsequent progress note. Treatment:IV vancomycin, IV zosyn, podiatry consult Risk Factors: RLE cellulitis with diabetic foot infection, DM, ESRD QUERY 2 OF 2 In your clinical opinion is this patient being managed for: ( ) Encephalopathy ( ) Other explanation of clinical findings (Please Explain) ( ) Unable to determine (Please Define) ( ) Need to Discuss ( X ) Not Agree The medical record reflects the following clinical findings, treatment, and risk factors. Clinical Indicators: 75 yo male presented alert and oriented with diabetic foot infection and cellulitis. Nursing documentation reflects pt developed confusion, tachycardia and was yelling for family. Labs repeated late evening showed Na 128, Cr up to 9.10 (from 7.80 in AM). Repeat EKG showed A flutter Treatment:IV lopressor, 500 cc NSS @100 cc/hr, EKG, PRP, tele monitoring post op Risk Factors: hyponatremia, ESRD, diabetic foot infection, tachycardia/A flutter, surgery/anesthetic and analgesic agents Please clarify and document your clinical opinion in the progress notes and discharge summary. Terms such as "probable", "suspected", "likely", "questionable", "possible", or "still to be ruled out" are acceptable. IF IN AGREEMENT, YOU MUST DOCUMENT ABOVE DIAGNOSTIC STATEMENT IN DAILY PROGRESS NOTES AND DISCHARGE SUMMARY. This document is not part of the patient's record. Thank You, Liv Pickering, RN [phone]
--- NOTE | 2016-06-03 12:44 | Medical Consult ---
Consultation Date of Consultation: Jun 03, 2016. Attending Physician: Kentrell Suárez M.D. History of Present Illness Mr. Carmichael is a pleasant 75 y/o male patient known to me in the office. Patient was admitted due to worsening right foot infection with WBC elevation and left foot and concern for osteomyelitis. Patient was scheduled for right foot 5th metatarsal resection, debridement outpatient for tomorrow, but this was changed to today due to his worsening infection and presentation to the ED. Patient had arterial dopplers peformed and is stable with respect to arterial flwo, patient had c and s obtained in office last Tuesday, resutls are pending. Plans is for patient to go to OR for incision and debridement right foot with resection of the 5th metatarsal head, ucler debridement. Past Medical/Surgical History Medical Problems: (1) Cellulitis of right foot Status: Acute (2) Sepsis Status: Acute Family History FH: diabetes mellitus AUNT FH: stroke GRANDMOTHER Social History Smoking Status: Former Smoker Drug Use: none Marital Status: Housing Status: lives with family Occupation Status: retired Allergies Coded Allergies: No Known Allergies (Verified , 06/02/16) Current Inpatient Medications Current Inpatient Medications Medications (Trade) Dose Ordered Sig/Eliseo Route Start Time Stop Time Status Last Admin Dose Admin Heparin Sodium (Porcine) (Heparin Sq 5000 Unit/0.5ml) 5,000 unit Q8 SQ 06/02/16 22:00 07/02/16 21:59 Acetaminophen (Tylenol Tab) 650 mg Q4H PRN PO 06/02/16 12:30 07/02/16 12:29 06/03/16 06:19 650 MG Magnesium Hydroxide (Milk Of Magnesia Susp) 30 ml Q6H PRN PO 06/02/16 12:30 07/02/16 12:29 Polyethylene (Miralax Powder Packet) 17 gm DAILY PO 06/03/16 08:00 07/03/16 08:59 Ondansetron HCl (Zofran Inj) 4 mg Q6H PRN IV 06/02/16 12:30 07/02/16 12:29 06/02/16 17:48 4 MG Allopurinol (Zyloprim Tab) 100 mg HS PO 06/02/16 21:00 07/02/16 20:59 06/02/16 19:58 100 MG Amlodipine Besylate (Norvasc Tab) 5 mg QAM PO 06/03/16 08:00 07/03/16 08:59 06/03/16 08:26 5 MG Aspirin (Ecotrin Tab) 81 mg QAM PO 06/03/16 08:00 07/03/16 08:59 06/03/16 08:26 81 MG Atorvastatin Calcium (Lipitor Tab) 20 mg DAILY PO 06/03/16 08:00 07/03/16 08:59 06/03/16 08:25 20 MG Calcium Acetate (Phoslo Cap) 667 mg TIDM PO 06/02/16 17:00 07/02/16 16:59 Furosemide (Lasix Tab) 40 mg DAILY PO 06/03/16 08:00 07/03/16 08:59 06/03/16 08:26 40 MG Ipratropium [place] (Atrovent Hfa Inhaler) 2 puffs QID PRN INH 06/02/16 12:30 07/02/16 12:29 Albuterol/ Ipratropium (Duoneb) 3 ml Q4H PRN INH 06/02/16 12:30 07/02/16 12:29 Meclizine HCl (Antivert Tab) 25 mg Q4H PRN PO 06/02/16 12:30 07/02/16 12:29 Metoprolol Succinate (Toprol Xl Tab) 50 mg QAM PO 06/03/16 08:00 07/03/16 08:59 06/03/16 08:27 50 MG Tamsulosin HCl (Flomax Cap) 0.4 mg HS PO 06/02/16 21:00 07/02/16 20:59 06/02/16 19:58 0.4 MG Cholecalciferol (Vitamin D Tab) 2,000 inter.unit QAM PO 06/03/16 08:00 07/03/16 08:59 Insulin Detemir (Levemir Flexpen/ FlexTouch) 80 unit HS SC 06/02/16 21:00 07/02/16 20:59 Ranitidine HCl (zANTac TAB) 300 mg QAM PO 06/03/16 08:00 07/03/16 08:59 06/03/16 08:27 300 MG Oxycodone/ Acetaminophen (Percocet 5-325mg Tab) 1 tab Q4H PRN PO 06/02/16 12:30 06/16/16 12:29 06/02/16 16:13 1 TAB Morphine Sulfate (MoRPHine SULFATE INJ) 2 mg Q2H PRN IV 06/02/16 12:30 06/16/16 12:29 06/03/16 07:33 2 MG Tramadol HCl 50 mg 50 mg Q4H PRN PO 06/02/16 12:30 07/02/16 12:29 Piperacillin Sod/ Tazobactam Sod/ Dextrose (Zosyn Iv/D5 100ml) 120 ml @ 30 mls/hr Q12H IV 06/02/16 20:00 07/14/16 19:59 06/03/16 07:32 30 MLS/HR Piperacillin Sod/ Tazobactam Sod (Consult) 1 ea UD PRN N/A 06/02/16 15:00 07/02/16 14:59 Vancomycin HCl (Consult) 1 ea UD PRN N/A 06/02/16 15:00 07/02/16 14:59 Glucose (Glucose 40% Gel) 15-30 GRAMS 15 GRAMS... UD PRN PO 06/02/16 17:00 07/02/16 16:59 Glucose (Glucose Chew Tab) 4-8 Tablets 4 Tabl... UD PRN PO 06/02/16 17:00 07/02/16 16:59 Dextrose (Dextrose 50% 50ML Syringe) 25-50ML OF 50% DW IV FOR... UD PRN IV 06/02/16 17:00 07/02/16 16:59 Glucagon (Glucagon Inj) 1 mg UD PRN SQ 06/02/16 17:00 07/02/16 16:59 Ondansetron HCl (Zofran Inj) 4 mg Q4H PRN IV 06/02/16 18:00 07/02/16 17:59 Insulin Aspart (novoLOG ASPART) SLIDING SCALE If C... ACHS SC 06/02/16 21:00 07/02/16 20:59 06/02/16 20:21 2 UNITS Heparin Sodium (Porcine) (Heparin Iv Bolus) 2,000 unit TODAY@0600 IV 06/04/16 06:00 06/04/16 23:59 Epoetin Vini (Procrit Inj) 10,000 units TODAY@0600 IV. 06/04/16 06:00 06/04/16 23:59 Physical Exam Date Time Temp Pulse Resp B/P Pulse Ox O2 Delivery O2 Flow Rate FiO2 06/03/16 07:45 99 Room Air 06/03/16 07:33 36.5 125 18 115/55 99 Room Air 06/03/16 00:00 100 Room Air 06/02/16 23:57 36.7 89 16 107/56 99 Room Air 06/02/16 20:00 100 Room Air 06/02/16 16:00 100 Room Air 06/02/16 15:55 36.6 104 20 162/58 100 Room Air 06/02/16 15:01 85 18 119/46 93 Room Air 06/02/16 13:06 37.0 06/02/16 12:51 100 20 135/54 94 Room Air Skin: + pertinent finding (right foot with ulcer present submetetarsal 5, probes deep to bone with erythema and cellulitis) Laboratory Results Last 24 Hours Test 06/02/16 16:33 06/02/16 17:05 06/02/16 20:11 06/03/16 07:00 Bedside Glucose 179 mg/dl 201 mg/dl Random Vancomycin Level 9.2 mcg/ml 20.0 mcg/ml White Blood Count 18.81 K/uL Red Blood Count 3.00 M/uL Hemoglobin 9.4 g/dL Hematocrit 27.5 % Mean Corpuscular Volume 91.7 fL Mean Corpuscular Hemoglobin 31.3 pg Mean Corpuscular Hemoglobin Concent 34.2 g/dl RDW Standard Deviation 48.9 fL RDW Coefficient of Variation 14.3 % Platelet Count 333 K/uL Mean Platelet Volume 8.5 fL Sodium Level 130 mmol/L Potassium Level 4.2 mmol/L Chloride Level 90 mmol/L Carbon Dioxide Level 27 mmol/L Anion Gap 13.0 mmol/L Blood Urea Nitrogen 55 mg/dl Creatinine 7.80 mg/dl Est Creatinine Clear Calc Drug Dose 10.6 ml/min Estimated GFR () 7.1 Estimated GFR (Non- 6.2 BUN/Creatinine Ratio 7.0 Random Glucose 158 mg/dl Calcium Level 9.1 mg/dl Test 06/03/16 08:27 06/03/16 11:40 Bedside Glucose 134 mg/dl 151 mg/dl Assessment & Plan 1. right foot ulcer - plan is for patient to go to OR today for debridement, will obtained cultures and pathology intra op for proper abx coverage
[2016-06-03] MEDS: POLYETHYLENE (MIRALAX) 17 GM PACK PO SCH (12:58)
[2016-06-03] MEDS: CHOLECALCIFEROL 1000 INTER.UNIT TAB PO SCH (12:58)
--- NOTE | 2016-06-03 13:04 | History & Physical Bridge Note ---
H&P Re-Evaluation Bridge Note: I have examined the patient, reviewed the History & Physical and in the interval since the performance of the History & Physical I have noted the following changes of clinical significance: No changes noted
[2016-06-03] MEDS ORDERED: MIDAZOLAM HCL 1 MG/ML 2ML VIAL ONE (13:07)
[2016-06-03] MEDS ORDERED: FENTANYL CITRATE INJ 50 MCG/1 ML 2 ML VIAL ONE (13:07)
[2016-06-03] MEDS ORDERED: BUPIVACAINE 0.5 % 5 MG/1 ML MPF 30ML VIAL ONE (13:14)
[2016-06-03] MEDS ORDERED: LIDOCAINE HCL 1% 20 ML VIAL ONE (13:14)
[2016-06-03] MEDS ORDERED: BACITRACIN 50000 UNIT VIAL ONE (13:17)
[2016-06-03] MEDS ORDERED: PHENYLEPHRINE 100MCG/ML 5ML SYR IV PRN (13:30)
[2016-06-03] MEDS ORDERED: EpHEDrine SULFATE INJ 50 MG/ML AMP IV PRN (13:30)
[2016-06-03] MEDS ORDERED: ONDANSETRON INJ 2 MG/ML 2 ML VIAL IV PRN (13:30)
[2016-06-03] MEDS ORDERED: ATROPINE SULFATE 0.1 MG/ML 5ML SYR IV PRN (13:30)
[2016-06-03] MEDS ORDERED: FENTANYL CITRATE INJ 50 MCG/1 ML 2 ML VIAL IV PRN (13:30)
[2016-06-03] MEDS ORDERED: KETAMINE HCL INJ 50 MG/ML 10 ML VIAL ONE (13:37)
[2016-06-03] MEDS ORDERED: SODIUM CHLORIDE 0.9% 1000ML 1,000 ML IV SCH (14:20)
--- NOTE | 2016-06-03 14:23 | [facility] Post Operative Brief Note ---
Immediate Operative Summary Operative Date Jun 03, 2016. Pre-Operative Diagnosis right foot cellulitis , ulcer, abscess Post-Operative Diagnosis same Procedure(s) Performed right foot incision and drainage, debridement, ulcer debridement, 5th metatarsal head resection Surgeon Alyssa Rutledge [employer] Work[employer] Surgeon(s) n/a Estimated Blood Loss 1 cc Findings bone and soft tissue right foot Specimens bone and soft tissue Drains none Anesthesia local iv sedation Complication(s) None Disposition Recovery Room / PACU
[2016-06-03] MEDS ORDERED: HYDROCODONE/ACETAMOPHEN 5/325MG TAB PO PRN (14:30)
[2016-06-03] MEDS ORDERED: METOCLOPRAMIDE HCL INJ 5 MG/ML 2 ML VIAL IV PRN (14:30)
[2016-06-03] MEDS ORDERED: MAGNESIUM HYDROXIDE SUSP 30 ML UDC PO PRN (14:30)
--- NOTE | 2016-06-03 14:53 | DIAGNOSTIC IMAGING REPORT ---
RIGHT FOOT MIN 3 VIEWS ROUTINE CLINICAL HISTORY: Cellulitis. Postop study. COMPARISON: 06/02/2016 DISCUSSION: There are postsurgical changes of a distal fifth metatarsal amputation. There is air within soft tissues consistent with recent surgery. There is calcaneal spurring. There is no erosive disease. 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 Electronically signed by: Sandip Montana M.D. 06/03/2016 2:51 PM Dictated Date/Time: 06/03/2016 2:50 PM
--- NOTE | 2016-06-03 14:55 | Anesthesiology Progress Note ---
Anesthesia Post Op Note Date & Time Jun 03, 2016 at 14:51 Vital Signs Pain Intensity: 7.0 Vital Signs Past 12 Hours Date Time Temp Pulse Resp B/P Pulse Ox O2 Delivery O2 Flow Rate FiO2 06/03/16 07:45 99 Room Air 06/03/16 07:33 36.5 125 18 115/55 99 Room Air Notes Mental Status: alert / awake / arousable, participated in evaluation Pt Amnestic to Procedure: Yes Nausea / Vomiting: adequately controlled Pain: adequately controlled Airway Patency, RR, SpO2: stable & adequate BP & HR: see Notes Hydration State: stable & adequate Anesthetic Complications: no major complications apparent Patient has severe foot infection and came to OR with diagnosis of acute sepsis. Noted that his HR this AM was in 120's and in preop his HR was 125-130. Did a bedside ECG (12 lead) which showed sinus tachycardia. Patient did receive his antihypertensive this AM but also noted his BP was trending downward. We did use judicious fluid replacement given his dialysis status but given his persistent tachycardia during and post-procedure, thought it was best to have him in a more monitored unit in case his overall clinical status declined. Spoke with attending medicine physician and he thought patient should be sent to telemetry post-procedure, which was done. Patient currently awake, conversant and has no complaints with the anesthesia. He denies any chest pain or SOB, dizziness or lightheadedness. Patient is stable for transfer to tele when he meets PACU discharge criteria.
[2016-06-03] MEDS ORDERED: NURSING VERBAL MED ORDER ONE (19:00)
[2016-06-03] MEDS ORDERED: METOPROLOL TARTRATE 1 MG/ML VIAL IV SCH (19:30)
[2016-06-03] MEDS: ALLOPURINOL 100 MG TAB PO SCH (20:31)
[2016-06-03] MEDS: TAMSULOSIN HCL 0.4 MG CAP PO SCH (20:31)
[2016-06-03] MEDS: ACETAMINOPHEN 325 MG TAB PO PRN (20:32)
[2016-06-03] MEDS: INSULIN DETEMIR FLEXPEN/FLEX TOUCH 100 UNITS/ML 3ML SC SCH (20:37)
[2016-06-04] VITALS (18 sets, daily range): BP systolic 94–132; BP diastolic 57–82; PULSE 50–133; TEMP 36.3–37.1; O2SAT 90–100
[2016-06-04 00:35] LABS: BUN/CREATININE RATIO 7.7 (10-20); CALCIUM 8.7 mg/dl (8.5-10.1); CREATININE 9.1 mg/dl (0.60-1.40); MAGNESIUM 2.5 mg/dl (1.8-2.4); POTASSIUM 4.6 mmol/L (3.5-5.1)
[2016-06-04] MEDS ORDERED: SODIUM CHLORIDE 0.9% 500ML 500 ML IV SCH (01:30)
[2016-06-04] MEDS: MoRPHine SULFATE 2 MG/ML CARP IV PRN ×3 (04:28→23:57)
[2016-06-04] MEDS: HEPARIN SOD 5000 UNIT/0.5 ML CARP SQ SCH ×3 (05:44→23:57)
[2016-06-04] MEDS ORDERED: HEPARIN SOD (PORCINE) 1000 UNIT/ML 10 ML VIAL IV SCH (06:00)
[2016-06-04] MEDS ORDERED: EPOETIN ALFA 10,000 UNITS/ML VIAL IV. SCH (06:00)
--- NOTE | 2016-06-04 07:07 | OPERATIVE REPORT ---
DATE OF OPERATION: 06/03/2016 PREOPERATIVE DIAGNOSIS: Right foot cellulitis, abscess and ulceration. POSTOPERATIVE DIAGNOSIS: Same. SURGEON: Alyssa Gaines DPM PROCEDURE: Right foot ulcer debridement, resection of fifth metatarsal head and bone, incision and drainage. HEMOSTASIS: Pneumatic ankle tourniquet at 250 mmHg. BLOOD LOSS: 1 mL. ANESTHESIA: Local IV sedation. PROCEDURE FOLLOWS: The patient was brought into the operating room and placed in the supine position. The right lower extremity was prepped and draped in the usual sterile manner. A 1:1 mixture of 1% lidocaine plain and 0.5% Marcaine was utilized to anesthetize the right foot around the area of the right fifth metatarsal, right fifth digit and right fifth metatarsophalangeal joint. At this time, a timeout was taken, anesthesia was induced and the procedure began. A dorsolateral incision was made over the fifth metatarsal, slightly dorsal to the ulceration that was present submetatarsal side. The ulcer that was present measured about 2 x 2 cm. There were some areas of erythema around the ulcer itself, but the entire extremity was very red, very swollen. There did appear to be malodor present and purulent drainage somewhat present from the ulceration itself. The ulcer itself did not have bone visible, but it did probe to bone and again there was an area that appeared to have an abscess. This was present at the lateral aspect of the fifth metatarsophalangeal joint. Again, the incision was made just dorsal to that. The dissection was carried through the skin and subcutaneous tissues to the level of the joint capsule. The joint capsule was then transcribed in line with the original incision and the fifth metatarsal head was identified. At the time of the original incision there was significant purulent drainage that was expressed above from the abscess. The foot was manipulated to ensure all purulent drainage was removed from the area. Once all the purulent drainage was expressed from the incision that was placed on the lateral aspect of the foot. Attention was directed to the bone that was present. The bone itself had a rather normal appearance, but the tissue around it was very hemorrhagic and again discolored, fragmented from the abscess that was present and from the purulent drainage that was present. The distal aspect of the fifth metatarsal head was resected. Cultures were obtained from the area both aerobic and anaerobic. Cultures were obtained of the bone fragment that was removed from the foot and again, the fragment of the foot that was removed was sent to pathology for permanent specimen. Next, attention was directed to the ulcer itself. This was debrided of all soft tissue that was present that was abnormally appearing or appeared to be necrotic, was debrided free and sent to pathology for permanent specimen. Next, a pulse lavage was utilized in the incision and in the ulceration to clean and flush the foot of any remaining abnormal appearing drainage. Next, the foot was again expressed and manipulated and there was no remaining purulent drainage expressible from the foot. At this point, the ulceration present on the plantar aspect of the fifth metatarsal head was closed utilizing 2-0 Prolene simple interrupted sutures. Next, packing was applied to the distal end of the dorsal incision. This will be pulled on postop day #1 during the dressing change and again sutures were applied across the dorsolateral incision with a combination of 2-0 Prolene and 2-0 nylon. At this point, compressive and corrective dressings were applied. The tourniquet was deflated. The patient was taken to recovery room with all vital signs stable and intact to the left lower extremity. He will then return to his floor and he will continue on all medicines, antibiotics and pain medications as previously ordered. Again, cultures, pathology, tissue and bone samples were all obtained. The foot did have a much improved appearance after the procedure. Again, these are always staged procedures and could require further debridement depending on the course of how the patient responds to antibiotics and to the treatment that was involved in the first debridement and the risks always remain for the patient to potentially need to have amputation of the fifth digit or remaining portion of the fifth metatarsal, but at this time it is believed that the infection was removed and that the foot was improved. I attest to the content of the Intraoperative Record and any orders documented therein. Any exceptions are noted below. MADDIED
[2016-06-04] MEDS: POLYETHYLENE (MIRALAX) 17 GM PACK PO SCH (08:07)
[2016-06-04] MEDS: OXYCODONE/ACETAMINOPHEN 5-325 TAB PO PRN (08:11)
[2016-06-04] MEDS: CALCIUM ACETATE 667MG GELCAP PO SCH ×3 (08:11→17:17)
--- NOTE | 2016-06-04 08:11 | Anesthesiology Progress Note ---
Anesthesia Post Op Note Date & Time Jun 04, 2016 at 08:10 Vital Signs Pain Intensity: 8.0 Vital Signs Past 12 Hours Date Time Temp Pulse Resp B/P Pulse Ox O2 Delivery O2 Flow Rate FiO2 06/04/16 07:36 36.5 120 19 127/78 95 Room Air 06/04/16 04:05 37.1 111 18 110/67 94 Room Air 06/04/16 04:00 Room Air 06/03/16 23:59 Room Air 06/03/16 23:15 37.1 112 18 105/56 91 Room Air 06/03/16 21:51 137 06/03/16 21:46 37.6 134 105/55 Notes Mental Status: alert / awake / arousable, participated in evaluation Pt Amnestic to Procedure: Yes Nausea / Vomiting: adequately controlled Pain: adequately controlled Airway Patency, RR, SpO2: stable & adequate BP & HR: stable & adequate Hydration State: stable & adequate Anesthetic Complications: no major complications apparent
[2016-06-04] MEDS: ATORVASTATIN 20 MG TAB PO SCH (08:12)
[2016-06-04] MEDS: ASPIRIN 81 MG ECTAB PO SCH (08:12)
[2016-06-04] MEDS: FUROSEMIDE 40 MG TAB PO SCH (08:12)
[2016-06-04] MEDS: METOPROLOL SUCC 50MG EXT REL TAB PO SCH (08:13)
[2016-06-04] MEDS: RANITIDINE HCL 150 MG TAB PO SCH (08:13)
[2016-06-04] MEDS: CHOLECALCIFEROL 1000 INTER.UNIT TAB PO SCH (08:14)
[2016-06-04] MEDS: PIPERACILL/TAZOBAC IV 4.5 GM in DEXTROSE 5% 100ML 100 ML IV SCH ×2 (08:16→23:57)
[2016-06-04] MEDS: INSULIN ASPART 100 UNITS/ML 3 ML PEN SC SCH ×4 (08:19→20:33)
--- NOTE | 2016-06-04 11:26 | Nephrology Progress Note ---
Nephrology Progress Note Date of Service Jun 04, 2016. Chief Complaint Provide HD for this patient w/ ESRD admitted w/ cellulitis involving his right foot Subjective Mr. Carmichael was seen & examined in the PCU this morning. He underwent right foot ulcer debridement w/ resection of fifth metatarsal head yesterday by podiatry. He currently denies fever, angina or dyspnea. He is awaiting his dialysis treatment this am. He has consented to left arm fistulagram Tuesday w/ Dr. Cabral. He has declined venous banding alleviate the discomfort in his left hand Review of Systems Constitutional: No fever Cardiovascular: No chest pain Respiratory: No dyspnea at rest Abdomen: No nausea, No pain, No vomiting Extremities: + leg edema (swelling of the right foot) A complete review of systems was performed. Pertinent positives are noted above. All other systems are negative. Vital Signs Last 8 Hrs Date Time Temp Pulse Resp B/P Pulse Ox O2 Delivery O2 Flow Rate FiO2 06/04/16 07:36 36.5 120 19 127/78 95 Room Air 06/04/16 04:05 37.1 111 18 110/67 94 Room Air 06/04/16 04:00 Room Air I & O 24-Hour Column 06/04/16 08:00 Intake Total 983 ml Output Total 1 ml Balance 982 ml Last Recorded Weight Weight (Kilograms): 110.300 Physical Exam General Appearance: no apparent distress Head: atraumatic Eyes: PERRL, EOMI Neck: no adenopathy Respiratory/Chest: lungs clear Cardiovascular: regular rate, rhythm Abdomen/GI: normal bowel sounds, non tender, soft Extremities/Musculoskelatal: + pertinent finding (right foot with clean dry dressing in place. Left upper arm AVF w/ high pitched bruit) Neurologic/Psych: alert, oriented x 3 Family History FH: diabetes mellitus AUNT FH: stroke GRANDMOTHER Negative for CKD / ESRD Social History Smoking Status: Unknown if ever smoked Drug Use: none Marital Status: Housing Status: lives with family Occupation: retired . Retired. Former smoker (2ppd x 45 years, quit 2002) Laboratory Results Past 24 Hours 06/03/16 23:58 Test 06/03/16 11:40 06/03/16 15:00 06/03/16 15:54 06/03/16 20:31 Bedside Glucose 151 mg/dl (70-99) 167 mg/dl (70-99) 160 mg/dl (70-99) 250 mg/dl (70-99) Test 06/03/16 23:58 06/04/16 07:04 Anion Gap 18.0 mmol/L (3-11) Est Creatinine Clear Calc Drug Dose 9.1 ml/min Estimated GFR () 5.9 Estimated GFR (Non- 5.1 BUN/Creatinine Ratio 7.7 (10-20) Calcium Level 8.7 mg/dl (8.5-10.1) Magnesium Level 2.5 mg/dl (1.8-2.4) Bedside Glucose 210 mg/dl (70-99) Allergies Coded Allergies: No Known Allergies (Verified , 06/02/16) Medications Current Inpatient Medications Medications (Trade) Dose Ordered Sig/Eliseo Route Start Time Stop Time Status Last Admin Dose Admin Heparin Sodium (Porcine) (Heparin Sq 5000 Unit/0.5ml) 5,000 unit Q8 SQ 06/02/16 22:00 07/02/16 21:59 Magnesium Hydroxide (Milk Of Magnesia Susp) 30 ml Q6H PRN PO 06/02/16 12:30 07/02/16 12:29 Polyethylene (Miralax Powder Packet) 17 gm DAILY PO 06/03/16 08:00 07/03/16 08:59 Allopurinol (Zyloprim Tab) 100 mg HS PO 06/02/16 21:00 07/02/16 20:59 06/03/16 20:31 100 MG Amlodipine Besylate (Norvasc Tab) 5 mg QAM PO 06/03/16 08:00 07/03/16 08:59 Future Hold 06/03/16 08:26 5 MG Aspirin (Ecotrin Tab) 81 mg QAM PO 06/03/16 08:00 07/03/16 08:59 06/04/16 08:12 81 MG Atorvastatin Calcium (Lipitor Tab) 20 mg DAILY PO 06/03/16 08:00 07/03/16 08:59 06/04/16 08:12 20 MG Calcium Acetate (Phoslo Cap) 667 mg TIDM PO 06/02/16 17:00 07/02/16 16:59 06/04/16 08:11 667 MG Furosemide (Lasix Tab) 40 mg DAILY PO 06/03/16 08:00 07/03/16 08:59 06/04/16 08:12 40 MG Ipratropium [place] (Atrovent Hfa Inhaler) 2 puffs QID PRN INH 06/02/16 12:30 07/02/16 12:29 Albuterol/ Ipratropium (Duoneb) 3 ml Q4H PRN INH 06/02/16 12:30 07/02/16 12:29 Meclizine HCl (Antivert Tab) 25 mg Q4H PRN PO 06/02/16 12:30 07/02/16 12:29 Metoprolol Succinate (Toprol Xl Tab) 50 mg QAM PO 06/03/16 08:00 07/03/16 08:59 06/04/16 08:13 50 MG Tamsulosin HCl (Flomax Cap) 0.4 mg HS PO 06/02/16 21:00 07/02/16 20:59 06/03/16 20:31 0.4 MG Cholecalciferol (Vitamin D Tab) 2,000 inter.unit QAM PO 06/03/16 08:00 07/03/16 08:59 06/04/16 08:14 2,000 INTER.UNIT Insulin Detemir (Levemir Flexpen/ FlexTouch) 80 unit HS SC 06/02/16 21:00 07/02/16 20:59 Ranitidine HCl (zANTac TAB) 300 mg QAM PO 06/03/16 08:00 07/03/16 08:59 06/04/16 08:13 300 MG Oxycodone/ Acetaminophen (Percocet 5-325mg Tab) 1 tab Q4H PRN PO 06/02/16 12:30 06/16/16 12:29 06/04/16 08:11 1 TAB Morphine Sulfate (MoRPHine SULFATE INJ) 2 mg Q2H PRN IV 06/02/16 12:30 06/16/16 12:29 06/04/16 04:28 2 MG Tramadol HCl 50 mg 50 mg Q4H PRN PO 06/02/16 12:30 07/02/16 12:29 Piperacillin Sod/ Tazobactam Sod/ Dextrose (Zosyn Iv/D5 100ml) 120 ml @ 30 mls/hr Q12H IV 06/02/16 20:00 07/14/16 19:59 06/04/16 08:16 30 MLS/HR Piperacillin Sod/ Tazobactam Sod (Consult) 1 ea UD PRN N/A 06/02/16 15:00 07/02/16 14:59 Vancomycin HCl (Consult) 1 ea UD PRN N/A 06/02/16 15:00 07/02/16 14:59 Glucose (Glucose 40% Gel) 15-30 GRAMS 15 GRAMS... UD PRN PO 06/02/16 17:00 07/02/16 16:59 Glucose (Glucose Chew Tab) 4-8 Tablets 4 Tabl... UD PRN PO 06/02/16 17:00 07/02/16 16:59 Dextrose (Dextrose 50% 50ML Syringe) 25-50ML OF 50% DW IV FOR... UD PRN IV 06/02/16 17:00 07/02/16 16:59 Glucagon (Glucagon Inj) 1 mg UD PRN SQ 06/02/16 17:00 07/02/16 16:59 Insulin Aspart (novoLOG ASPART) SLIDING SCALE If C... ACHS SC 06/02/16 21:00 07/02/16 20:59 06/04/16 08:19 5 UNITS Heparin Sodium (Porcine) (Heparin Iv Bolus) 2,000 unit TODAY@0600 IV 06/04/16 06:00 06/04/16 23:59 Epoetin Vini (Procrit Inj) 10,000 units TODAY@0600 IV. 06/04/16 06:00 06/04/16 23:59 Acetaminophen (Tylenol Tab) 650 mg Q4H PRN PO 06/03/16 14:30 07/03/16 14:29 06/03/16 20:32 650 MG Al Hydrox/Mg Hydrox/Simethicone (Maalox Max Susp) 15 ml Q4H PRN PO 06/03/16 14:30 07/03/16 14:29 Magnesium Hydroxide (Milk Of Magnesia Susp) 30 ml Q12H PRN PO 06/03/16 14:30 07/03/16 14:29 Ondansetron HCl 4 mg 4 mg Q6H PRN IV 06/03/16 14:30 07/03/16 14:29 Sodium Chloride (Nss 1000ml) 1,000 ml @ 15 mls/hr Q24H IV 06/03/16 14:20 06/04/16 14:19 06/03/16 16:39 15 MLS/HR Oxycodone/ Acetaminophen (Percocet 5-325mg Tab) 2 tab Q4H PRN PO 06/03/16 14:30 06/17/16 14:29 Metoclopramide HCl (Reglan Inj) 5 mg Q6H PRN IV 06/03/16 14:30 07/03/16 14:29 Acetaminophen/ Hydrocodone Bitart 1 tab 1 tab Q4H PRN PO 06/03/16 14:30 06/17/16 14:29 Sodium Chloride (Nss 500ml) 500 ml @ 100 mls/hr Q5H IV 06/04/16 01:30 07/04/16 01:29 06/04/16 01:47 100 MLS/HR Impression (1) End-stage renal disease on hemodialysis (2) Cellulitis of right foot (3) Sepsis (4) Monoclonal gammopathy (5) Diabetes mellitus, type II Recommendations END STAGE RENAL DISEASE: -- HD today w/ limited heparin. Orders have been entered into EMR and HD RN notified. -- Heplock IV -- AVF w/ high pitched bruit. Doppler is suggestive of venous stenosis. Vascular surgery is planning fistulagram Tuesday06/07/16 ANEMIA: -- Will provide FLOWER w/ HD ID: -- Patient underwent right foot ulcer debridement w/ resection of fifth metatarsal head by podiatry 06/03/16 -- Blood cx are NGTD. Patient did receive IV Vanco at dialysis prior to admission. He is now on IV Zosyn as per primary service.
--- NOTE | 2016-06-04 11:35 | Pharmacy Progress Note ---
Pharmacy Antibiotic Prog Note Date of Service Jun 04, 2016. Subjective The patient received vancomycin 1000 mg IV x one on 06/02/2016. The patient is currently on day # 3 of IV therapy. Objective Height (Feet): 6 Height (Inches): 1.00 Weight (Kilograms): 110.300 Levels: Item Value Date Time Random Vancomycin Level 9.2 mcg/ml 06/02/16 1705 Random Vancomycin Level 20.0 mcg/ml 06/03/16 0700 Lab Results (24hrs): Laboratory Tests Test 06/03/16 23:58 BUN/Creatinine Ratio 7.7 Blood Urea Nitrogen 70 mg/dl Creatinine 9.10 mg/dl Micro Results: RUN DATE: 06/04/16 [facility] PAGE 1 RUN TIME: 712 Specimen Inquiry PATIENT: GUILLERMO MARTINEZ LOC: [facility] U # : [id number] AGE/SX: 75/M ROOM: [facility] REG : 06/02/[address]: Kentrell Suárez M : 1940 BED: 1 DIS : STATUS: ADM IN TLOC: SPEC #: [id number] PRUDENCIO: 06/03/16 STATUS: RES REQ #: [id number] RECD: 06/03/16 [facility] DR: Kentrell Suárez M.D. SOURCE: ABSCESS ENTR: 06/03/[address] [facility] [address]: Obi Mendez M.D. [facility]: Eleuterio Schneider D.O. Rowe-Bauer, Christina L., DPZion Viveros M.D. Thomas, Peter W., D.O. ORDERED: AER/RAO CULTSMR Procedure Result Verified Site GRAM STAIN Final 06/04/16-712 RESULT MODERATE WBCs SEEN MODERATE GRAM POSITIVE COCCI Phoned results to MINNIE DOSHI on 06/03/16 at 1543 by Kathia Holliday. Results were verbalized back to YESICA. OR AER/RAO CULT Results Pending RUN DATE: 06/04/16 [facility] PAGE 1 RUN TIME: 647 Specimen Inquiry PATIENT: GUILLERMO MARTINEZ LOC: Raffaele U # : [id number] AGE/SX: 75/M ROOM: [facility] REG : 06/02/[address]: Kentrell Suárez M : 1940 BED: 1 DIS : STATUS: ADM IN TLOC: SPEC #: [id number] PRUDENCIO: 06/03/16-1348 STATUS: RES REQ #: [id number] RECD: 06/03/16-[address]: Kentrell Suárez M.D. SOURCE: ABSCESS ENTR: 06/03/16-[address] [facility] [address]: bOi Mendez M.D. SPDESC: FOOT RIGHT Eleuterio Hardin D.O. Rowe-Bauer, Christina L., Zion Matson M.D. Thomas, Peter W., D.O. ORDERED: AER/RAO CULTSMR Procedure Result Verified Site GRAM STAIN Final 06/04/16-0648 RESULT MODERATE WBCs SEEN MODERATE GRAM POSITIVE COCCI Phoned results to MINNIE BOSWELL (RM [id number]) on 06/03/16 at 1545 by Kathia Holliday. Results were verbalized back to YESICA. OR AER/RAO CULT Results Pending Assessment & Plan ASSESSMENT * Mr Martinez is a 75 y/o M with a PMH of diabetes and ESRD on hemodialysis. He presented with worsening cellulitis in in his right foot and there was concern for osteomyelitis. 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 Per Dr Gaines's note it appears the entire infection was removed. It was very purulent. * Antibiotics are continued until it is determined that the entire infection was removed and there is no longer the concern for osteomyelitis. PLAN: This drug level is: Therapeutic Give vancomycin 500 mg IV after dialysis today. Goal peak level estimate: between 35 - 40 mcg/mL. Goal trough level estimate: between 15 - 20 mcg/mL. Random level has been ordered for: . Pharmacy will continue to follow and will adjust dose/frequency as necessary. Thank you
--- NOTE | 2016-06-04 13:30 | DIAGNOSTIC IMAGING REPORT ---
LEFT FOOT MIN 3 VIEWS ROUTINE CLINICAL HISTORY: Left foot pain COMPARISON: None. DISCUSSION: No fractures or dislocations are visualized. There are no erosive or destructive changes. There is plantar calcaneal spurring. There are degenerative changes most pronounced the level the first metatarsal phalangeal joint. IMPRESSION: Calcaneal spurring. Mild degenerative change. No acute fractures. Electronically signed by: Sandip Montana M.D. 06/04/2016 1:28 PM Dictated Date/Time: 06/04/2016 1:27 PM
--- NOTE | 2016-06-04 13:46 | Progress Note ---
Subjective Date of Service: Jun 04, 2016. Subjective Pt evaluation today including: conversation w/ patient (Patient seen at bedside today POD 1 right foot incision and drainage with resection of the 5th metatarsal head; dressings clean dry and intact to the right foot. Patient felt OK, foot feeling better per patient. Patient seen with ID today as well.) Problem List Medical Problems: (1) Cellulitis of right foot Status: Acute (2) Sepsis Status: Acute Review of Systems 1. right foot POD 1 - I and D, 5th metatarsal head resection, ulcer debridement - improved erythema and swelling, concern remains though, dressings removed today and packing removed, still some purulent drainage expressible from dorsal lateral incision, area was flushed with saline, distal suture removed to allow any remaining drainage to be evacuated, recommend new lab work today to see if WBC and L shift area improving, post xrays stable and show 5th metatarsal head resection ; applied xerform with gauze and delgado wrap, continue elevate right foot with pillow and recommend partial weightbearing at this time time, appreciate ID recs, pathology still pending at this time Objective Vital Signs Date Time Temp Pulse Resp B/P Pulse Ox O2 Delivery O2 Flow Rate FiO2 06/04/16 12:02 36.3 50 20 94/70 100 Nasal Cannula 2.0 06/04/16 08:45 Room Air 06/04/16 07:36 36.5 120 19 127/78 95 Room Air 06/04/16 04:05 37.1 111 18 110/67 94 Room Air 06/04/16 04:00 Room Air 06/03/16 23:59 Room Air 06/03/16 23:15 37.1 112 18 105/56 91 Room Air 06/03/16 21:51 137 06/03/16 21:46 37.6 134 105/55 06/03/16 20:00 Room Air 06/03/16 19:41 38.4 133 22 95/68 91 Room Air 06/03/16 17:52 37.4 136 20 135/61 95 Room Air 06/03/16 16:09 94 Room Air 06/03/16 16:00 37.1 119 19 142/75 92 Room Air 06/03/16 15:30 37.2 82 19 111/70 94 Room Air 06/03/16 15:15 36.8 62 18 109/73 92 Room Air 06/03/16 15:03 37.6 128 19 111/58 94 Room Air 06/03/16 14:51 129 23 91 06/03/16 14:51 130 23 06/03/16 14:50 113/52 06/03/16 14:46 128 17 95 06/03/16 14:46 128 17 06/03/16 14:45 95/43 06/03/16 14:41 129 18 06/03/16 14:41 129 18 88/55 94 06/03/16 14:36 132 22 06/03/16 14:36 131 22 66/46 100 06/03/16 14:35 49/37 06/03/16 14:31 130 20 100 06/03/16 14:31 130 20 06/03/16 14:30 96/53 06/03/16 14:26 36.8 130 16 94/56 100 Mask 10 Physical Exam Skin: + pertinent finding (improved erythema right foot with improved swelling , still purulent drainage expressible, packing removed from incision, area flushed, dressings reapplied) Laboratory Results Last 24 Hours Test 06/03/16 15:00 06/03/16 15:54 06/03/16 20:31 06/03/16 23:58 Bedside Glucose 167 mg/dl 160 mg/dl 250 mg/dl Sodium Level 128 mmol/L Potassium Level 4.6 mmol/L Chloride Level 86 mmol/L Carbon Dioxide Level 24 mmol/L Anion Gap 18.0 mmol/L Blood Urea Nitrogen 70 mg/dl Creatinine 9.10 mg/dl Est Creatinine Clear Calc Drug Dose 9.1 ml/min Estimated GFR () 5.9 Estimated GFR (Non- 5.1 BUN/Creatinine Ratio 7.7 Random Glucose 282 mg/dl Calcium Level 8.7 mg/dl Magnesium Level 2.5 mg/dl Test 06/04/16 07:04 Bedside Glucose 210 mg/dl Assessment and Plan 1. right foot POD 1 - I and D, 5th metatarsal head resection, ulcer debridement - improved erythema and swelling, concern remains though, dressings removed today and packing removed, still some purulent drainage expressible from dorsal lateral incision, area was flushed with saline, distal suture removed to allow any remaining drainage to be evacuated, recommend new lab work today to see if WBC and L shift area improving, post xrays stable and show 5th metatarsal head resection ; applied xerform with gauze and delgado wrap, continue elevate right foot with pillow and recommend partial weightbearing at this time time, appreciate ID recs, pathology still pending at this time Continued [facility] stay due to: multiple IV medications needed Discharge planning: uncertain
--- NOTE | 2016-06-04 13:48 | Medical Consult ---
Consultation Date of Consultation: Jun 04, 2016. Attending Physician: Kentrell Suárez M.D. Reason for Consultation: Diabetic foot infection with osteo History of Present Illness Patient is a 75 yo Diabetic male with CKD on HD who presented to the ED with complaints of nausea for multiple days.The patient states that he had not been experiencing any sweats, chills, or subjective fever at home. He has however had a chronic wound of the right foot for approximately 6 months for which he was previously being treated at the wound care center. His past records from wound care were reviewed today. It is noted that he has had multiple cultures taken from his foot wound in the past couple months. He has grown Enterococcus Faecalis and MSSA on multiple occasions from his foot wound along with E. Coli in February. Upon current admission, the patient's WBC count was 23.15 and Right foot X-Ray showed diffuse soft tissue edema with foci of subcutaneous gas within the lateral aspect of the forefoot and around the fifth MTP joint. After discussion with Dr. Hart, she stated that as an outpatient, she was able to probe to the bone through his wound. She was electively going to take the patient to surgery but he ended up in the hospital. Since admission he is now s/ p I & D of right lateral foot abscess with right 5th distal metatarsal resection and debridement. He is currently on IV Zosyn and Vancomycin. Past Medical/Surgical History Medical Problems: (1) Cellulitis of right foot Status: Acute (2) Sepsis Status: Acute Medical Problems: (1) CKD (chronic kidney disease) stage 3, GFR 30-59 ml/min (2) End-stage renal disease on hemodialysis (3) Gout (4) History of adenomatous polyp of colon (5) History of Clostridium difficile infection (6) Monoclonal gammopathy (7) Unspecified open wound, right foot, sequela Surgical Problems: (1) Status post arthroscopic knee surgery Family History FH: diabetes mellitus AUNT FH: stroke GRANDMOTHER Noncontributory Social History Smoking Status: Former Smoker Drug Use: none Marital Status: Housing Status: lives with family Occupation Status: retired Allergies Coded Allergies: No Known Allergies (Verified , 06/02/16) Home Medications Reported Home Medications Medications Dose Route/Sig Max Daily Dose Days Date Category Dose Instructions Trazodone HCl 150 Mg Tab 1 Tab PO DAILY PRN 06/02/16 Reported Tamsulosin HCl 0.4 Mg Cap 1 Cap PO HS 06/02/16 Reported Atorvastatin Calcium (Atorvastatin) 20 Mg Tab 1 Tab PO DAILY 06/02/16 Reported Meclizine HCl 25 Mg Tab 1 Tab PO Q4H PRN 06/02/16 Reported Furosemide 40 Mg Tab 1 Tab PO DAILY 06/02/16 Reported Phoslo 667 Mg (Calcium Acetate (Phosphate Bin) 667 Mg Cap 1 Cap PO TID 06/02/16 Reported Zantac (Ranitidine Hcl) 300 Mg Tab 1 Tab PO DAILY 06/02/16 Reported Novolog Penfill (Insulin Aspart) 100 Unit/Ml Inj 60 Units SQ BID 06/02/16 Reported SLIDING SCALE Levemir (Insulin Detemir) 100 Units/Ml Inj 80 Units SC HS 06/02/16 Reported Vitamin D3 (Cholecalciferol) 2,000 Unit Cap 1 Cap PO DAILY 06/02/16 Reported Zyloprim (Allopurinol) 100 Mg Tab 1 Tab PO HS 30 12/28/15 Reported Sodium Bicarbonate 650 Mg Tab 1 Tab PO BID 09/30/15 Reported Toprol-Xl (Metoprolol Succinate) 50 Mg Tabcr 50 Mg PO QAM 09/30/15 Reported Duoneb (Ipratropium-Albuterol) 3 Ml Nebu 1 Treatment INH Q4H PRN 09/30/15 Reported Atrovent Hfa (Ipratropium [place]) 200 Puffs/3400 Mcg Aers 2 Puffs INH QID PRN 09/30/15 Reported Norvasc (Amlodipine Besylate) 5 Mg Tab 5 Mg PO QAM 03/20/15 Reported Aspir-81 (Aspirin) 81 Mg Tab 1 Tab PO QAM 30 08/21/14 Reported Current Inpatient Medications Current Inpatient Medications Medications (Trade) Dose Ordered Sig/Eliseo Route Start Time Stop Time Status Last Admin Dose Admin Heparin Sodium (Porcine) (Heparin Sq 5000 Unit/0.5ml) 5,000 unit Q8 SQ 06/02/16 22:00 07/02/16 21:59 Magnesium Hydroxide (Milk Of Magnesia Susp) 30 ml Q6H PRN PO 06/02/16 12:30 07/02/16 12:29 Polyethylene (Miralax Powder Packet) 17 gm DAILY PO 06/03/16 08:00 07/03/16 08:59 Allopurinol (Zyloprim Tab) 100 mg HS PO 06/02/16 21:00 07/02/16 20:59 06/03/16 20:31 100 MG Amlodipine Besylate (Norvasc Tab) 5 mg QAM PO 06/03/16 08:00 07/03/16 08:59 Future Hold 06/03/16 08:26 5 MG Aspirin (Ecotrin Tab) 81 mg QAM PO 06/03/16 08:00 07/03/16 08:59 06/04/16 08:12 81 MG Atorvastatin Calcium (Lipitor Tab) 20 mg DAILY PO 06/03/16 08:00 07/03/16 08:59 06/04/16 08:12 20 MG Calcium Acetate (Phoslo Cap) 667 mg TIDM PO 06/02/16 17:00 07/02/16 16:59 06/04/16 12:52 667 MG Furosemide (Lasix Tab) 40 mg DAILY PO 06/03/16 08:00 07/03/16 08:59 06/04/16 08:12 40 MG Ipratropium [place] (Atrovent Hfa Inhaler) 2 puffs QID PRN INH 06/02/16 12:30 07/02/16 12:29 Albuterol/ Ipratropium (Duoneb) 3 ml Q4H PRN INH 06/02/16 12:30 07/02/16 12:29 Meclizine HCl (Antivert Tab) 25 mg Q4H PRN PO 06/02/16 12:30 07/02/16 12:29 Metoprolol Succinate (Toprol Xl Tab) 50 mg QAM PO 06/03/16 08:00 07/03/16 08:59 06/04/16 08:13 50 MG Tamsulosin HCl (Flomax Cap) 0.4 mg HS PO 06/02/16 21:00 07/02/16 20:59 06/03/16 20:31 0.4 MG Cholecalciferol (Vitamin D Tab) 2,000 inter.unit QAM PO 06/03/16 08:00 07/03/16 08:59 06/04/16 08:14 2,000 INTER.UNIT Insulin Detemir (Levemir Flexpen/ FlexTouch) 80 unit HS SC 06/02/16 21:00 07/02/16 20:59 Ranitidine HCl (zANTac TAB) 300 mg QAM PO 06/03/16 08:00 07/03/16 08:59 06/04/16 08:13 300 MG Oxycodone/ Acetaminophen (Percocet 5-325mg Tab) 1 tab Q4H PRN PO 06/02/16 12:30 06/16/16 12:29 06/04/16 08:11 1 TAB Morphine Sulfate (MoRPHine SULFATE INJ) 2 mg Q2H PRN IV 06/02/16 12:30 06/16/16 12:29 06/04/16 04:28 2 MG Tramadol HCl 50 mg 50 mg Q4H PRN PO 06/02/16 12:30 07/02/16 12:29 Piperacillin Sod/ Tazobactam Sod/ Dextrose (Zosyn Iv/D5 100ml) 120 ml @ 30 mls/hr Q12H IV 06/02/16 20:00 07/14/16 19:59 06/04/16 08:16 30 MLS/HR Piperacillin Sod/ Tazobactam Sod (Consult) 1 ea UD PRN N/A 06/02/16 15:00 07/02/16 14:59 Vancomycin HCl (Consult) 1 ea UD PRN N/A 06/02/16 15:00 07/02/16 14:59 Glucose (Glucose 40% Gel) 15-30 GRAMS 15 GRAMS... UD PRN PO 06/02/16 17:00 07/02/16 16:59 Glucose (Glucose Chew Tab) 4-8 Tablets 4 Tabl... UD PRN PO 06/02/16 17:00 07/02/16 16:59 Dextrose (Dextrose 50% 50ML Syringe) 25-50ML OF 50% DW IV FOR... UD PRN IV 06/02/16 17:00 07/02/16 16:59 Glucagon (Glucagon Inj) 1 mg UD PRN SQ 06/02/16 17:00 07/02/16 16:59 Insulin Aspart (novoLOG ASPART) SLIDING SCALE If C... ACHS SC 06/02/16 21:00 07/02/16 20:59 06/04/16 12:57 8 UNITS Heparin Sodium (Porcine) (Heparin Iv Bolus) 2,000 unit TODAY@0600 IV 06/04/16 06:00 06/04/16 23:59 Epoetin Vini (Procrit Inj) 10,000 units TODAY@0600 IV. 06/04/16 06:00 06/04/16 23:59 Acetaminophen (Tylenol Tab) 650 mg Q4H PRN PO 06/03/16 14:30 07/03/16 14:29 06/03/16 20:32 650 MG Al Hydrox/Mg Hydrox/Simethicone (Maalox Max Susp) 15 ml Q4H PRN PO 06/03/16 14:30 07/03/16 14:29 Magnesium Hydroxide (Milk Of Magnesia Susp) 30 ml Q12H PRN PO 06/03/16 14:30 07/03/16 14:29 Ondansetron HCl 4 mg 4 mg Q6H PRN IV 06/03/16 14:30 07/03/16 14:29 Sodium Chloride (Nss 1000ml) 1,000 ml @ 15 mls/hr Q24H IV 06/03/16 14:20 06/04/16 14:19 06/03/16 16:39 15 MLS/HR Oxycodone/ Acetaminophen (Percocet 5-325mg Tab) 2 tab Q4H PRN PO 06/03/16 14:30 06/17/16 14:29 Metoclopramide HCl (Reglan Inj) 5 mg Q6H PRN IV 06/03/16 14:30 07/03/16 14:29 Acetaminophen/ Hydrocodone Bitart 1 tab 1 tab Q4H PRN PO 06/03/16 14:30 06/17/16 14:29 Vancomycin HCl/ Sodium Chloride (Vancomycin Inj/ Nss 250ml) 260 ml @ 125 mls/hr TODAY@1600 IV 06/04/16 16:00 06/04/16 23:59 Review of Systems Eyes: No worsening of vision ENT: No hearing loss Respiratory: No cough, No shortness of breath Cardiovascular: No chest pain Abdomen: + constipation, + pain Musculoskeletal: + swelling (right foot, ankle, lower extremity) Genitourinary - Male: No dysuria, No hematuria Integumentary: + color change (erythema of the right foot, ankle), + new/ changing skin lesions (ulceration on right foot x 6 months, worsened [employer]IAN), No rash Physical Exam Date Time Temp Pulse Resp B/P Pulse Ox O2 Delivery O2 Flow Rate FiO2 06/04/16 12:02 36.3 50 20 94/70 100 Nasal Cannula 2.0 06/04/16 08:45 Room Air 06/04/16 07:36 36.5 120 19 127/78 95 Room Air 06/04/16 04:05 37.1 111 18 110/67 94 Room Air 06/04/16 04:00 Room Air 06/03/16 23:59 Room Air 06/03/16 23:15 37.1 112 18 105/56 91 Room Air 06/03/16 21:51 137 06/03/16 21:46 37.6 134 105/55 06/03/16 20:00 Room Air 06/03/16 19:41 38.4 133 22 95/68 91 Room Air 06/03/16 17:52 37.4 136 20 135/61 95 Room Air 06/03/16 16:09 94 Room Air 06/03/16 16:00 37.1 119 19 142/75 92 Room Air 06/03/16 15:30 37.2 82 19 111/70 94 Room Air 06/03/16 15:15 36.8 62 18 109/73 92 Room Air 06/03/16 15:03 37.6 128 19 111/58 94 Room Air 06/03/16 14:51 129 23 91 06/03/16 14:51 130 23 06/03/16 14:50 113/52 06/03/16 14:46 128 17 95 06/03/16 14:46 128 17 06/03/16 14:45 95/43 06/03/16 14:41 129 18 06/03/16 14:41 129 18 88/55 94 06/03/16 14:36 132 22 06/03/16 14:36 131 22 66/46 100 06/03/16 14:35 49/37 06/03/16 14:31 130 20 100 06/03/16 14:31 130 20 06/03/16 14:30 96/53 06/03/16 14:26 36.8 130 16 94/56 100 Mask 10 General Appearance: no apparent distress, + obese Head: normocephalic, atraumatic Eyes: normal inspection, sclerae normal ENT: hearing grossly normal Neck: supple, trachea midline Respiratory/Chest: no respiratory distress, no accessory muscle use Cardiovascular: regular rate, rhythm Extremities/Musculoskelatal: + pertinent finding (Note edema of the right foot , toes and ankle. ) Neurologic/Psych: + pertinent finding (Decreased sensation of b/l LE) Skin: warm/dry, no rash, + pertinent finding Laboratory Results RUN DATE: 06/04/16 [facility] PAGE 1 RUN TIME: 1300 Specimen Inquiry PATIENT: GUILLERMO MARTINEZ LOC: [facility] U # : [id number] AGE/SX: 75/M ROOM: [facility] REG : 06/02/[address]: Kentrell Suárez M : 1940 BED: 1 DIS : STATUS: ADM IN TLOC: SPEC #: [id number] PRUDENCIO: 06/03/161011 STATUS: RES REQ #: [id number] RECD: 06/03/16-[address] [facility] [address]: Ketnrell Suárez M.D. SOURCE: ABSCESS ENTR: 06/03/16-1434 [facility] DR: Obi Mendez M.D. [facility]: FOOT RIGHT HarperEleuterio kuo D.O. Rowe-Bauer, Christina L., [facility] Zion Cabral M.D. Thomas, Peter W., D.O. ORDERED: AER/RAO CULTSMR Procedure Result Verified Site GRAM STAIN Final 06/04/16-0648 RESULT MODERATE WBCs SEEN MODERATE GRAM POSITIVE COCCI Phoned results to MINNIE BOSWELL (RM [id number]) on 06/03/16 at 1545 by Kathia Holliday. Results were verbalized back to YESICA. OR AER/RAO CULT Preliminary 06/04/16-1300 Organism 1 ALPHA STREP. NOT ENTEROCOCCUS QUANITY MODERATE SENS NO SENSITIVITY TO FOLLOW Organism 2 STAPH SPECIES QUANITY FEW SENS SENSITIVITIES DEPENDENT ON FURTHER IDENTIFICATION Item Value Date Time Gram Stain - Final Resulted 06/03/16 0349 Abscess Toe Right 5 Gram Stain - Final Resulted 06/03/16 1349 Abscess Foot Right Blood Culture - Preliminary Resulted 06/02/16 1110 Blood NO GROWTH TO DATE. Blood Culture - Preliminary Resulted 06/02/16 1050 Blood NO GROWTH TO DATE. Last 24 Hours Test 06/03/16 15:00 06/03/16 15:54 06/03/16 20:31 06/03/16 23:58 Bedside Glucose 167 mg/dl 160 mg/dl 250 mg/dl Sodium Level 128 mmol/L Potassium Level 4.6 mmol/L Chloride Level 86 mmol/L Carbon Dioxide Level 24 mmol/L Anion Gap 18.0 mmol/L Blood Urea Nitrogen 70 mg/dl Creatinine 9.10 mg/dl Est Creatinine Clear Calc Drug Dose 9.1 ml/min Estimated GFR () 5.9 Estimated GFR (Non- 5.1 BUN/Creatinine Ratio 7.7 Random Glucose 282 mg/dl Calcium Level 8.7 mg/dl Magnesium Level 2.5 mg/dl Test 06/04/16 07:04 Bedside Glucose 210 mg/dl Assessment & Plan Patient with right 5th distal metatarsal abscess and osteomyelitis with chronic overlying ulceration. History of MSSA and Enterococcus growing from the right foot wound. He is currently on IV Vancomycin and Zosyn which is appropriate pending final culture results. Will also add Clindamycin for 48 hours as well for toxin reduction with gas seen on X-Ray. Anticipate that this patient may will need continued IV abx therapy pending culture results, also may consider Zyvox (if MSSA and Enterococcus again). We will continue to follow this patient. Case reviewed and agree with above assessment.
--- NOTE | 2016-06-04 14:40 | Surgery Consultation ---
Consultation Date of Service Jun 04, 2016. Chief Complaint ESRD on HD, AVF stenosis History of Present Illness The patient is a 75 year old male with multiple medical problems, including ESRD on HD through L radiocephalic AVF, seen in consultation today d/t AVF stenosis noted on US. Pt denies any problems related to AVF, states is able to run at HD ok as far as he knows. High pitched bruit was noted by nephrology. Pt underwent R foot debridement d/t infection yesterday. Pt states he does have L hand numbness, tingling, and occasional pain. usually wears a glove. Pt denies HURLEY, fever, chills, chest pain, SOB, abd pain, N/V, rest pain, claudication, other complaints. Vitals Vital Signs Past 12 Hours Date Time Temp Pulse Resp B/P Pulse Ox O2 Delivery O2 Flow Rate FiO2 06/04/16 12:02 36.3 50 20 94/70 100 Nasal Cannula 2.0 06/04/16 08:45 Room Air 06/04/16 07:36 36.5 120 19 127/78 95 Room Air 06/04/16 04:05 37.1 111 18 110/67 94 Room Air 06/04/16 04:00 Room Air Allergies Coded Allergies: No Known Allergies (Verified , 06/02/16) Home Medications Scheduled Allopurinol (Zyloprim), 1 TAB PO HS Amlodipine (Norvasc), 5 MG PO QAM Aspirin (Aspir-81), 1 TAB PO QAM Atorvastatin (Atorvastatin Calcium), 1 TAB PO DAILY Calcium Acetate (Phosphate Bin (Phoslo 667 Mg), 1 CAP PO TID Cholecalciferol (Vitamin D3), 1 CAP PO DAILY Furosemide (Furosemide), 1 TAB PO DAILY Insulin Aspart (Novolog Penfill), 60 UNITS SQ BID Insulin Detemir (Levemir), 80 UNITS SC HS Metoprolol Succ (Toprol Xl) (Toprol-Xl), 50 MG PO QAM Ranitidine Hcl (Zantac), 1 TAB PO DAILY Sodium Bicarbonate (Sodium Bicarbonate), 1 TAB PO BID Tamsulosin HCl (Tamsulosin HCl), 1 CAP PO HS Scheduled PRN Ipratropium [place] (Atrovent Hfa), 2 PUFFS INH QID PRN for Shortness of Breath Ipratropium-Albuterol (Duoneb), 1 TREATMENT INH Q4H PRN for Shortness of Breath Meclizine HCl (Meclizine HCl), 1 TAB PO Q4H PRN for Dizziness or Vertigo Trazodone HCl (Trazodone HCl), 1 TAB PO DAILY PRN for Pain Problem List Medical Problems: (1) CKD (chronic kidney disease) stage 3, GFR 30-59 ml/min (2) End-stage renal disease on hemodialysis (3) Gout (4) History of adenomatous polyp of colon (5) History of Clostridium difficile infection (6) Monoclonal gammopathy (7) Unspecified open wound, right foot, sequela Surgical Problems: (1) Status post arthroscopic knee surgery Surgical / Medical History Hx Cardiac Surgery: No Hx Abdominal Surgery: Yes (cholecystectomy) Hx Cancer Surgery: No Hx Thoracic Surgery: No Hx Orthopedic: Yes (lt knee surgery x 3, rotator cuff left) Hx Urinary Tract Surgery: No HX Other Surgery: Yes (tonsillectomy) Past Medical/Surgical History: Diabetes, Heart Disease, High Cholesterol, Hypertension, Kidney Disease Family History FH: diabetes mellitus AUNT FH: stroke GRANDMOTHER Social History Smoking Status: Former Smoker Hx Tobacco Use In Past Year?: No (quit in 2000 3 PPD X 60 years) Hx Alcohol Use - Type & Amnt: No Hx Substance Use -Type & Amnt: No Review of Systems Constitutional: No chills, No fever, No malaise Skin: No change in color Eyes: No visual changes ENMT: No sore throat Respiratory: No MARTINEZ, No cough, No hemoptysis, No short of breath Cardiovascular: No chest pain, No edema, No intermittent claudication, No palpitations, No syncope Gastrointestinal: No abdominal pain, No diarrhea, No nausea, No vomiting Neurologic: No dizziness, No headache, No numbness, No tingling Physical Exam Constitutional: General Apperance: well-nourished, well-developed Level of Distress: NAD, chronically ill Psychiatric: Mental Status: active & alert, normal mood, normal affect Orientation: oriented except where noted, to time, to place, to person Memory: recent memory normal, remote memory normal Head: normocephalic, atraumatic Eyes: EOM: EOMI ENMT: normal ENT inspection, hearing grossly normal Neck: supple, trachea midline Lungs: Respiratory effort: no dyspnea Auscultation: no rales/crackles, no rhonchi, decreased breath sounds Cardiovascular: Apical Impulse: not displaced Heart Auscultation: RRR, no murmurs, no rubs, no gallops Peripheral Pulses: Pulses: full and equal, in all extremities except if noted Bruits: none appreciated Carotid Pulse: normal on the left, normal on the right Brachial Pulses: normal on the left, normal on the right Radial Pulse: normal on the right, decreased on the left, pertinent finding (barely palpable on L. AVF with excellent thrill/bruit noted.) Femoral Pulse: normal on the left, normal on the right Posterior Tibialis Pulse: absent on the left, absent on the right Dorsalis Pedis Pulse: absent on the left, absent on the right Abdomen: Bowel Sounds: normal Inspection & Palpation: soft, non-distended, no tenderness, guarding & rebound Musculoskeletal: normal strength (5/5 throughout), normal tone Extremities: Upper Right: no cyanosis, no edema, no varicosities Upper Left: no cyanosis, no edema, no varicosities, pertinent finding ( fingers with delayed cap refill, cooler than RLE) Lower Right: no cyanosis, no edema, no varicosities, pertinent finding ( dressing in place) Lower Left: no cyanosis, no edema, no varicosities Neurologic: Cranial Nerves: grossly intact Sensation: grossly intact Assessment and Plan ASSESSMENT and PLAN: ESRD on HD MAlfuncitoning LUE AVF, vascular steal syndrome Pt discussed with Dr Montgomery, recommends LUE arterial study. Pt states he does not want ANY further open surgery on AVF. He will "deal" with the steal syndrome. Also planning on LUE fistulagram in OR on tuesday. Procedure, risks, benefits, and alternatives discussed with pt, he expresses understanding and agreement.
[2016-06-04] MEDS: CLINDAMYCIN IV 600 MG in DEXTROSE 5% ADD-VANTAGE 50ML 50 ML IV SCH ×2 (14:50→23:57)
--- NOTE | 2016-06-04 14:53 | Progress Note ---
Subjective Date of Service: Jun 04, 2016. Subjective pt is in good spirits, has some pain on lateral area of left foot, right foot incision opened at bedside and more purulence removed. Pt was in afib overnight post op, converted 06/04 Problem List Medical Problems: (1) Cellulitis of right foot Status: Acute (2) Sepsis Status: Acute Review of Systems Constitutional: + fatigue, + weakness, No chills, No fever Respiratory: No cough, No shortness of breath Cardiac: + edema, No chest pain Abdomen: No diarrhea, No nausea, No pain, No vomiting Musculoskeletal: + joint pain, + muscle pain, + swelling Male : No dysuria, No urinary frequency Psychiatric: No anhedonism, No depression symptoms Skin: + color change, + new/changing skin lesions Objective Vital Signs Date Time Temp Pulse Resp B/P Pulse Ox O2 Delivery O2 Flow Rate FiO2 06/04/16 12:02 36.3 50 20 94/70 100 Nasal Cannula 2.0 06/04/16 08:45 Room Air 06/04/16 07:36 36.5 120 19 127/78 95 Room Air 06/04/16 04:05 37.1 111 18 110/67 94 Room Air 06/04/16 04:00 Room Air 06/03/16 23:59 Room Air 06/03/16 23:15 37.1 112 18 105/56 91 Room Air 06/03/16 21:51 137 06/03/16 21:46 37.6 134 105/55 06/03/16 20:00 Room Air 06/03/16 19:41 38.4 133 22 95/68 91 Room Air 06/03/16 17:52 37.4 136 20 135/61 95 Room Air 06/03/16 16:09 94 Room Air 06/03/16 16:00 37.1 119 19 142/75 92 Room Air 06/03/16 15:30 37.2 82 19 111/70 94 Room Air 06/03/16 15:15 36.8 62 18 109/73 92 Room Air 06/03/16 15:03 37.6 128 19 111/58 94 Room Air 06/03/16 14:51 129 23 91 06/03/16 14:51 130 23 06/03/16 14:50 113/52 Physical Exam General Appearance: WD/WN, + mild distress Neck: supple, thyroid normal Respiratory/Chest: chest non-tender, lungs clear Cardiovascular: no murmur, + tachycardia, + irregularly irregular Abdomen: normal bowel sounds, soft Extremities: + pertinent finding (left foot with point tenderness at 5th met base, no bruising noted) Neurologic/Psychiatric: alert, oriented x 3 Laboratory Results Last 24 Hours Test 06/03/16 15:00 06/03/16 15:54 06/03/16 20:31 06/03/16 23:58 Bedside Glucose 167 mg/dl 160 mg/dl 250 mg/dl Sodium Level 128 mmol/L Potassium Level 4.6 mmol/L Chloride Level 86 mmol/L Carbon Dioxide Level 24 mmol/L Anion Gap 18.0 mmol/L Blood Urea Nitrogen 70 mg/dl Creatinine 9.10 mg/dl Est Creatinine Clear Calc Drug Dose 9.1 ml/min Estimated GFR () 5.9 Estimated GFR (Non- 5.1 BUN/Creatinine Ratio 7.7 Random Glucose 282 mg/dl Calcium Level 8.7 mg/dl Magnesium Level 2.5 mg/dl Test 06/04/16 07:04 Bedside Glucose 210 mg/dl Assessment and Plan 75 M with diabetic foot infection at site of chronic wound, surgical debridement, dialysis, PMHx of DM II, HTN, Hyperlipidemia, COPD, ESRD on HD m/ w/f, gout, RLE diabetic foot infection/Cellulitis Possible osteomyelitis RLE R plantar surface of the 5th toe wound gram positives on culture, ID changed to clindamycin - Dr. Hart consult surgical debridement 06/03 and bedside wound eval with continued purulence Afib was rapid overnight treated with B Penelope ESRD on HD- Nephrology, m/w/f. fistulae was eval by Doppler, stenosis suggested , Dr Cabral to adress left leg pain, doppler suggests chronic DVT, no acute treatment, left foot shows no avulsion fracture COPD- stable on inhaled medicines, not on continuous oxygen yet Constipation mirilax and dulcolax supp. HTN seems stable post op amlodipine 5 mg daily, lasix 40 mg PO daily, metoprolol succ 50 mg daily Hyperlipidemia: atorvastatin 20 mg daily GERD no complaints ranitidine 150 mg HS DVT ppx: Teds, scds, heparin sq CODE STATUS: FULL CODE Disposition: From home, Continued [facility] stay due to: multiple IV medications needed Discharge planning: uncertain
[2016-06-04] MEDS ORDERED: VANCOMYCIN INJ 500 MG in SODIUM CHLORIDE 0.9% 250ML 250 ML IV SCH (16:00)
--- NOTE | 2016-06-04 17:21 | DIAGNOSTIC IMAGING REPORT ---
Arterial Doppler left arm ART DOP DUP UPPER EXT UNI CLINICAL HISTORY: Subclavian steal TECHNIQUE: Doppler COMPARISON STUDY: Antegrade flow is present within the left subclavian artery. It is increased at 180 cm/s. Increased flow within the left radial artery at which 82 cm/s. Normal vascular flow is identified throughout. IMPRESSION:: Increased arterial velocities throughout the left arm and left subclavian artery. Arterial flow characteristics are antegrade Electronically signed by: Quentin Stephenson M.D. 06/04/2016 5:18 PM Dictated Date/Time: 06/04/2016 5:16 PM
[2016-06-04] MEDS: ONDANSETRON INJ 2 MG/ML 2 ML VIAL IV PRN (20:01)
[2016-06-04 20:29] LABS: URINE APPEARANCE CLOUDY (CLEAR); URINE BILIRUBIN NEG (NEG); URINE COLOR DK YELLOW; URINE EPITHELIAL CELL AUTO >30 /lpf (0-5); URINE NITRITE NEG (NEG); URINE PH 6.5 (4.5-7.5); URINE SPECIFIC GRAVITY 1.021 (1.000-1.030); UROBILINOGEN NEG (NEG)
[2016-06-04 20:31] LABS: MANUAL MICROSCOPIC REQUIRED? NO; REVIEW REQ? YES
[2016-06-04] MEDS: INSULIN DETEMIR FLEXPEN/FLEX TOUCH 100 UNITS/ML 3ML SC SCH (20:34)
[2016-06-04] MEDS: ALLOPURINOL 100 MG TAB PO SCH (23:58)
[2016-06-04] MEDS: TAMSULOSIN HCL 0.4 MG CAP PO SCH (23:58)
[2016-06-05] MEDS ORDERED: VANCOMYCIN INJ 500 MG in SODIUM CHLORIDE 0.9% 250ML 250 ML IV SCH (00:30)
[2016-06-05] MEDS ORDERED: NURSING VERBAL MED ORDER ONE ×2 (00:45→05:15)
[2016-06-05] MEDS ORDERED: METOPROLOL TARTRATE 1 MG/ML VIAL IV STA ×2 (00:59→05:32)
[2016-06-05 01:22] LABS: HEMATOCRIT 25.9 % (42-52); MEAN CELL VOLUME 89.9 fL (80-100); MEAN CORPUSCULAR HEMOGLOBIN 30.9 pg (25-34); MEAN PLATELET VOLUME 8.5 fL (7.4-10.4); PLATELET COUNT 346 K/uL (130-400); RED BLOOD COUNT 2.88 M/uL (4.7-6.1); WHITE BLOOD COUNT 15.22 K/uL (4.8-10.8)
[2016-06-05 01:31] LABS: MEAN CORPUSCULAR HGB CONC 34.4 g/dl (32-36)
[2016-06-05 01:53] LABS: BUN/CREATININE RATIO 7.4 (10-20); CREATININE 6.8 mg/dl (0.60-1.40); MAGNESIUM 2.4 mg/dl (1.8-2.4); POTASSIUM 3.5 mmol/L (3.5-5.1)
[2016-06-05 02:01] LABS: HEPATITIS B AB NEG
[2016-06-05 04:10] VITALS: BP 106/64; PULSE 135; TEMP 37.1; O2SAT 93
[2016-06-05] MEDS: HEPARIN SOD 5000 UNIT/0.5 ML CARP SQ SCH ×3 (05:40→21:40)
[2016-06-05] MEDS: CLINDAMYCIN IV 600 MG in DEXTROSE 5% ADD-VANTAGE 50ML 50 ML IV SCH ×3 (05:53→22:50)
[2016-06-05] MEDS: METOPROLOL SUCC 50MG EXT REL TAB PO SCH (07:54)
[2016-06-05] MEDS: ATORVASTATIN 20 MG TAB PO SCH (07:54)
[2016-06-05] MEDS: RANITIDINE HCL 150 MG TAB PO SCH (07:54)
[2016-06-05] MEDS: ASPIRIN 81 MG ECTAB PO SCH (07:54)
[2016-06-05] MEDS: FUROSEMIDE 40 MG TAB PO SCH (07:55)
[2016-06-05] MEDS: CHOLECALCIFEROL 1000 INTER.UNIT TAB PO SCH (07:55)
[2016-06-05] MEDS: CALCIUM ACETATE 667MG GELCAP PO SCH ×3 (07:55→16:45)
[2016-06-05] MEDS: POLYETHYLENE (MIRALAX) 17 GM PACK PO SCH (07:56)
[2016-06-05] MEDS: PIPERACILL/TAZOBAC IV 4.5 GM in DEXTROSE 5% 100ML 100 ML IV SCH ×2 (08:00→20:31)
[2016-06-05] MEDS: INSULIN ASPART 100 UNITS/ML 3 ML PEN SC SCH ×4 (08:01→21:00)
[2016-06-05 08:18] VITALS: BP 101/50; PULSE 119; TEMP 37.1; O2SAT 91
[2016-06-05] MEDS: MoRPHine SULFATE 2 MG/ML CARP IV PRN (10:05)
[2016-06-05] MEDS: ALBUT/IPRATROP 3MG/0.5MG NEB 3 ML VIAL INH PRN (11:41)
[2016-06-05 11:54] VITALS: BP 113/56; PULSE 132; TEMP 36.4; O2SAT 91
--- NOTE | 2016-06-05 13:41 | Nephrology Progress Note ---
Nephrology Progress Note Date of Service Jun 05, 2016. Chief Complaint Follow-up for end-stage renal disease on hemodialysis. Donna Díaz was seen and examined in his room this morning. He overall does not feel well and specially because his not able to sleep at night. denies any other specific symptom, no episode of fever chills shortness of breath or chest pain. Continues to have occasional nausea and vomiting. Had dialysis yesterday just for 3 hours. Review of Systems A complete review of systems was performed. Pertinent positives are noted above. All other systems are negative. Vital Signs Last 8 Hrs Date Time Temp Pulse Resp B/P Pulse Ox O2 Delivery O2 Flow Rate FiO2 06/05/16 12:00 Room Air 06/05/16 11:54 36.4 132 18 113/56 91 Room Air 06/05/16 08:18 37.1 119 20 101/50 91 Room Air 06/05/16 08:00 Room Air 06/05/16 05:40 135 I & O 24-Hour Column 06/05/16 08:00 Intake Total 1047 ml Output Total 1300 ml Balance -253 ml Last Recorded Weight Weight (Kilograms): 115.800 Physical Exam GENERAL: Elderly male , AAA x 3, ill-appearing, not in any distress. NECK: Supple, no JVD. RESPIRATORY: Normal breathing efforts, no accessory muscle use, clear to auscultation bilaterally, no wheezes or rales. CARDIOVASCULAR: S1, S2 normal, rate rhythm regular. EXTREMITY: Right foot wrapped in dressing, it erythema and swelling much improved. NEURO: speech fluent. PSYCHIATRY: irritable. Family History FH: diabetes mellitus AUNT FH: stroke GRANDMOTHER Negative for CKD / ESRD Social History Smoking Status: Unknown if ever smoked Drug Use: none Marital Status: Housing Status: lives with family Occupation: retired . Retired. Former smoker (2ppd x 45 years, quit 2002) Laboratory Results Past 24 Hours 06/05/16 01:07 06/05/16 01:07 Test 06/04/16 16:07 06/04/16 19:45 06/04/16 20:05 06/05/16 01:07 Bedside Glucose 156 mg/dl (70-99) 234 mg/dl (70-99) Urine Color DK YELLOW Urine Appearance CLOUDY (CLEAR) Urine pH 6.5 (4.5-7.5) Urine Specific [place] 1.021 (1.000-1.030) Urine Protein 4+ (NEG) Urine Glucose (UA) 2+ (NEG) Urine Ketones NEG (NEG) Urine Occult Blood 2+ (NEG) Urine Nitrite NEG (NEG) Urine Bilirubin NEG (NEG) Urine Urobilinogen NEG (NEG) Urine Leukocyte Esterase TRACE (NEG) Urine WBC (Auto) 10-30 /hpf (0-5) Urine RBC (Auto) 10-30 /hpf (0-4) Urine Hyaline Casts (Auto) 10-30 /lpf (0-5) Urine Epithelial Cells (Auto) >30 /lpf (0-5) Urine Bacteria (Auto) NEG (NEG) Urine Renal Epithelial Cells 10-20 /lpf (0-5) Urine Pathogenic Casts 10-20 GRANULAR CASTS /lpf (0) Urine Yeast (Auto) PRESENT (NONE PRSENT) Red Blood Count 2.88 M/uL (4.7-6.1) Mean Corpuscular Volume 89.9 fL (80-100) Mean Corpuscular Hemoglobin 30.9 pg (25-34) Mean Corpuscular Hemoglobin Concent 34.4 g/dl (32-36) RDW Standard Deviation 45.9 fL (36.4-46.3) RDW Coefficient of Variation 13.9 % (11.5-14.5) Mean Platelet Volume 8.5 fL (7.4-10.4) Anion Gap 11.0 mmol/L (3-11) Est Creatinine Clear Calc Drug Dose 13.7 ml/min Estimated GFR () 8.4 Estimated GFR (Non- 7.3 BUN/Creatinine Ratio 7.4 (10-20) Calcium Level 8.0 mg/dl (8.5-10.1) Magnesium Level 2.4 mg/dl (1.8-2.4) Random Vancomycin Level 17.3 mcg/ml Hepatitis B Surface Antigen NEG (NEG) Hepatitis B Surface Antibody NEG Test 06/05/16 07:06 06/05/16 11:29 Bedside Glucose 96 mg/dl (70-99) 83 mg/dl (70-99) Allergies Coded Allergies: No Known Allergies (Verified , 06/02/16) Medications Current Inpatient Medications Medications (Trade) Dose Ordered Sig/Eliseo Route Start Time Stop Time Status Last Admin Dose Admin Heparin Sodium (Porcine) (Heparin Sq 5000 Unit/0.5ml) 5,000 unit Q8 SQ 06/02/16 22:00 07/02/16 21:59 Magnesium Hydroxide (Milk Of Magnesia Susp) 30 ml Q6H PRN PO 06/02/16 12:30 07/02/16 12:29 Polyethylene (Miralax Powder Packet) 17 gm DAILY PO 06/03/16 08:00 07/03/16 08:59 06/05/16 07:56 17 GM Allopurinol (Zyloprim Tab) 100 mg HS PO 06/02/16 21:00 07/02/16 20:59 06/04/16 23:58 100 MG Amlodipine Besylate (Norvasc Tab) 5 mg QAM PO 06/03/16 08:00 07/03/16 08:59 Future Hold 06/03/16 08:26 5 MG Aspirin (Ecotrin Tab) 81 mg QAM PO 06/03/16 08:00 07/03/16 08:59 06/05/16 07:54 81 MG Atorvastatin Calcium (Lipitor Tab) 20 mg DAILY PO 06/03/16 08:00 07/03/16 08:59 06/05/16 07:54 20 MG Calcium Acetate (Phoslo Cap) 667 mg TIDM PO 06/02/16 17:00 07/02/16 16:59 06/05/16 11:46 667 MG Furosemide (Lasix Tab) 40 mg DAILY PO 06/03/16 08:00 07/03/16 08:59 06/05/16 07:55 40 MG Ipratropium [place] (Atrovent Hfa Inhaler) 2 puffs QID PRN INH 06/02/16 12:30 07/02/16 12:29 Albuterol/ Ipratropium (Duoneb) 3 ml Q4H PRN INH 06/02/16 12:30 07/02/16 12:29 Meclizine HCl (Antivert Tab) 25 mg Q4H PRN PO 06/02/16 12:30 07/02/16 12:29 Metoprolol Succinate (Toprol Xl Tab) 50 mg QAM PO 06/03/16 08:00 07/03/16 08:59 06/05/16 07:54 50 MG Tamsulosin HCl (Flomax Cap) 0.4 mg HS PO 06/02/16 21:00 07/02/16 20:59 06/04/16 23:58 0.4 MG Cholecalciferol (Vitamin D Tab) 2,000 inter.unit QAM PO 06/03/16 08:00 07/03/16 08:59 06/05/16 07:55 2,000 INTER.UNIT Insulin Detemir (Levemir Flexpen/ FlexTouch) 80 unit HS SC 06/02/16 21:00 07/02/16 20:59 06/04/16 20:34 80 UNIT Ranitidine HCl (zANTac TAB) 300 mg QAM PO 06/03/16 08:00 07/03/16 08:59 06/05/16 07:54 300 MG Oxycodone/ Acetaminophen (Percocet 5-325mg Tab) 1 tab Q4H PRN PO 06/02/16 12:30 06/16/16 12:29 06/04/16 08:11 1 TAB Morphine Sulfate (MoRPHine SULFATE INJ) 2 mg Q2H PRN IV 06/02/16 12:30 06/16/16 12:29 06/05/16 10:05 2 MG Tramadol HCl 50 mg 50 mg Q4H PRN PO 06/02/16 12:30 07/02/16 12:29 Piperacillin Sod/ Tazobactam Sod/ Dextrose (Zosyn Iv/D5 100ml) 120 ml @ 30 mls/hr Q12H IV 06/02/16 20:00 07/14/16 19:59 06/05/16 08:00 30 MLS/HR Piperacillin Sod/ Tazobactam Sod (Consult) 1 ea UD PRN N/A 06/02/16 15:00 07/02/16 14:59 Vancomycin HCl (Consult) 1 ea UD PRN N/A 06/02/16 15:00 07/02/16 14:59 Glucose (Glucose 40% Gel) 15-30 GRAMS 15 GRAMS... UD PRN PO 06/02/16 17:00 07/02/16 16:59 Glucose (Glucose Chew Tab) 4-8 Tablets 4 Tabl... UD PRN PO 06/02/16 17:00 07/02/16 16:59 Dextrose (Dextrose 50% 50ML Syringe) 25-50ML OF 50% DW IV FOR... UD PRN IV 06/02/16 17:00 07/02/16 16:59 Glucagon (Glucagon Inj) 1 mg UD PRN SQ 06/02/16 17:00 07/02/16 16:59 Insulin Aspart (novoLOG ASPART) SLIDING SCALE If C... ACHS SC 06/02/16 21:00 07/02/16 20:59 06/05/16 12:29 4 UNITS Acetaminophen (Tylenol Tab) 650 mg Q4H PRN PO 06/03/16 14:30 07/03/16 14:29 06/03/16 20:32 650 MG Al Hydrox/Mg Hydrox/Simethicone (Maalox Max Susp) 15 ml Q4H PRN PO 06/03/16 14:30 07/03/16 14:29 Magnesium Hydroxide (Milk Of Magnesia Susp) 30 ml Q12H PRN PO 06/03/16 14:30 07/03/16 14:29 Ondansetron HCl (Zofran Inj) 4 mg Q6H PRN IV 06/03/16 14:30 07/03/16 14:29 06/04/16 20:01 4 MG Oxycodone/ Acetaminophen (Percocet 5-325mg Tab) 2 tab Q4H PRN PO 06/03/16 14:30 06/17/16 14:29 Metoclopramide HCl (Reglan Inj) 5 mg Q6H PRN IV 06/03/16 14:30 07/03/16 14:29 Acetaminophen/ Hydrocodone Bitart 1 tab 1 tab Q4H PRN PO 06/03/16 14:30 06/17/16 14:29 Clindamycin Phosphate/Dextrose (Cleocin Iv/ Dextrose Add-[place] 50ML) 54 ml @ 100 mls/hr Q8H IV 06/04/16 14:30 06/06/16 14:29 06/05/16 05:53 100 MLS/HR Trazodone HCl (Desyrel Tab) 100 mg HS PO 06/05/16 21:00 07/05/16 20:59 Impression (1) End-stage renal disease on hemodialysis (2) Cellulitis of right foot (3) Sepsis (4) Monoclonal gammopathy (5) Diabetes mellitus, type II Recommendations --Patient had dialysis for 3 hours yesterday evening. He refused to go to dialysis unit for any further treatment as he did not feel well at the unit and requesting to have the dialysis in his room. -- avoid further IV fluid, continue on phosphate binder with each meal. -- resume trazodone which he has been taking for depression and sleep -- AVF w/ high pitched bruit. Doppler is suggestive of venous stenosis. Vascular surgery is planning fistulagram Tuesday06/07/16 -- Patient underwent right foot ulcer debridement w/ resection of fifth metatarsal head by podiatry 06/03/16 -- Blood cx are NGTD. On vanc, Zosyn and clindamycin as per ID recommendation.
[2016-06-05] MEDS ORDERED: CHLORDIAZEPOXIDE 10 MG CAP PO ONE (15:09)
--- NOTE | 2016-06-05 15:09 | Progress Note ---
Subjective Date of Service: Jun 05, 2016. Subjective pt wants to get out of this hospital, I explained will be in for a longer time, for fistulogram wednesday 06/07 due to av fistulae stenosis, surgical debridement of foot, considering if wound counsult can be helpful, need to discuss with surgeon pt has reasonable pain control is anxious Problem List Medical Problems: (1) Cellulitis of right foot Status: Acute (2) Sepsis Status: Acute Review of Systems Constitutional: No chills, No fever, No weakness Respiratory: No cough, No shortness of breath Cardiac: + edema, No chest pain Abdomen: No diarrhea, No nausea, No pain, No vomiting Musculoskeletal: + joint pain, + muscle pain Psychiatric: + anxiety, No depression symptoms Objective Vital Signs Date Time Temp Pulse Resp B/P Pulse Ox O2 Delivery O2 Flow Rate FiO2 06/05/16 12:00 Room Air 06/05/16 11:54 36.4 132 18 113/56 91 Room Air 06/05/16 08:18 37.1 119 20 101/50 91 Room Air 06/05/16 08:00 Room Air 06/05/16 05:40 135 06/05/16 04:10 37.1 135 18 106/64 93 Room Air 06/05/16 04:00 Room Air 06/05/16 01:18 131 06/05/16 00:00 Room Air 06/04/16 23:55 37.1 119 16 117/57 90 Room Air 06/04/16 23:12 36.6 121 128/67 06/04/16 23:00 124 120/63 06/04/16 22:45 116 111/62 06/04/16 22:30 124 121/57 06/04/16 22:15 110 124/60 06/04/16 22:00 118 130/67 06/04/16 21:45 124 116/57 06/04/16 21:30 131 122/60 06/04/16 21:15 132 119/65 06/04/16 21:00 122 127/59 06/04/16 20:45 130 129/65 06/04/16 20:40 36.8 124 132/67 06/04/16 20:01 Room Air 06/04/16 19:51 36.8 133 18 110/82 100 Room Air 06/04/16 16:00 Room Air 06/04/16 15:45 36.7 115 20 120/62 100 Room Air Physical Exam General Appearance: WD/WN, + mild distress Neck: supple, thyroid normal Respiratory/Chest: chest non-tender, lungs clear, normal breath sounds Cardiovascular: no murmur, + tachycardia Abdomen: normal bowel sounds, non tender, soft Extremities: + pedal edema, + swelling Laboratory Results Last 24 Hours Test 06/04/16 16:07 06/04/16 19:45 06/04/16 20:05 06/05/16 01:07 Bedside Glucose 156 mg/dl 234 mg/dl Urine Color DK YELLOW Urine Appearance CLOUDY Urine pH 6.5 Urine Specific [place] 1.021 Urine Protein 4+ Urine Glucose (UA) 2+ Urine Ketones NEG Urine Occult Blood 2+ Urine Nitrite NEG Urine Bilirubin NEG Urine Urobilinogen NEG Urine Leukocyte Esterase TRACE Urine WBC (Auto) 10-30 /hpf Urine RBC (Auto) 10-30 /hpf Urine Hyaline Casts (Auto) 10-30 /lpf Urine Epithelial Cells (Auto) >30 /lpf Urine Bacteria (Auto) NEG Urine Renal Epithelial Cells 10-20 /lpf Urine Pathogenic Casts 10-20 GRANULAR CASTS /lpf Urine Yeast (Auto) PRESENT White Blood Count 15.22 K/uL Red Blood Count 2.88 M/uL Hemoglobin 8.9 g/dL Hematocrit 25.9 % Mean Corpuscular Volume 89.9 fL Mean Corpuscular Hemoglobin 30.9 pg Mean Corpuscular Hemoglobin Concent 34.4 g/dl RDW Standard Deviation 45.9 fL RDW Coefficient of Variation 13.9 % Platelet Count 346 K/uL Mean Platelet Volume 8.5 fL Sodium Level 135 mmol/L Potassium Level 3.5 mmol/L Chloride Level 91 mmol/L Carbon Dioxide Level 33 mmol/L Anion Gap 11.0 mmol/L Blood Urea Nitrogen 49 mg/dl Creatinine 6.80 mg/dl Est Creatinine Clear Calc Drug Dose 13.7 ml/min Estimated GFR () 8.4 Estimated GFR (Non- 7.3 BUN/Creatinine Ratio 7.4 Random Glucose 132 mg/dl Calcium Level 8.0 mg/dl Magnesium Level 2.4 mg/dl Random Vancomycin Level 17.3 mcg/ml Hepatitis B Surface Antigen NEG Hepatitis B Surface Antibody NEG Test 06/05/16 07:06 4/22/17 11:29 Bedside Glucose 96 mg/dl 83 mg/dl Assessment and Plan 75 M with diabetic foot infection at site of chronic wound, surgical debridement, dialysis, PMHx of DM II, HTN, Hyperlipidemia, COPD, ESRD on HD m/ w/, gout, RLE diabetic foot infection/Cellulitis Possible osteomyelitis RLE R plantar surface of the 5th toe wound gram positives on culture, ID changed to clindamycin - Dr. Hart consult surgical debridement 06/03 and bedside wound eval with continued purulence Afib was rapid overnight treated with B [place], still tachy will push dose ESRD on HD- Nephrology, m/w/. fistulae was eval by Doppler, stenosis suggested , Dr Cabral to adress left leg pain, doppler suggests chronic DVT, no acute treatment, left foot shows no avulsion fracture COPD- stable on inhaled medicines, not on continuous oxygen yet Constipation mirilax and dulcolax supp. HTN seems stable post op amlodipine 5 mg daily, lasix 40 mg PO daily, metoprolol succ 50 mg daily anxiety, states not withdrawal of alcohol, use prn librium and hs seroquel Hyperlipidemia: atorvastatin 20 mg daily GERD no complaints ranitidine 150 mg HS DVT ppx: Teds, scds, heparin sq CODE STATUS: FULL CODE Disposition: From home, Continued [facility] stay due to: multiple IV medications needed Discharge planning: uncertain
[2016-06-05] MEDS: ONDANSETRON INJ 2 MG/ML 2 ML VIAL IV PRN (15:11)
[2016-06-05] MEDS ORDERED: POTASSIUM CHLORIDE 10 MEQ TABCR PO STA (15:27)
[2016-06-05] MEDS ORDERED: DIGOXIN IV 250 MCG in SYRINGE 9 ML IV ONE ×2 (15:36→23:30)
--- NOTE | 2016-06-05 15:45 | Pharmacy Progress Note ---
Pharmacy Antibiotic Prog Note Date of Service Jun 05, 2016. Subjective The patient is currently receiving IV Vancomycin guided by random levels due to CKD/HD. The patient is currently on day #4 of IV therapy. Objective Height (Feet): 6 Height (Inches): 1.00 Weight (Kilograms): 115.800 Levels: Item Value Date Time Random Vancomycin Level 9.2 mcg/ml 06/02/16 1705 Random Vancomycin Level 20.0 mcg/ml 06/03/16 0700 Random Vancomycin Level 17.3 mcg/ml 06/05/16 0107 Lab Results (24hrs): Laboratory Tests Test 06/05/16 01:07 BUN/Creatinine Ratio 7.4 Blood Urea Nitrogen 49 mg/dl Creatinine 6.80 mg/dl White Blood Count 15.22 K/uL Micro Results: Item Value Date Time Blood Culture - Preliminary Resulted 06/02/16 1050 Blood NO GROWTH TO DATE. Blood Culture - Preliminary Resulted 06/02/16 1110 Blood NO GROWTH TO DATE. Gram Stain - Final Resulted 06/03/16 1349 Abscess Foot Right Gram Stain - Final Resulted 06/03/16 1359 Abscess Toe Right 5 Urine Culture - Preliminary Resulted 06/04/16 1945 Urine , Clean Catch NO GROWTH - LESS THAN 1,000 COLONIES/... RUN DATE: 06/05/16 [facility] LAB PAGE 1 RUN TIME: 1520 Specimen Inquiry PATIENT: GUILLERMO MARTINEZ LOC: [facility] # : [id number] AGE/SX: 75/M ROOM: S237 REG : 06/02/[address]: Kentrell Suárez M : 1940 BED: 1 DIS : STATUS: ADM IN TLOC: SPEC #: [id number] PRUDENCIO: 06/03/16 STATUS: RES REQ #: [id number] RECD: 06/03/[address]: Kentrell Suárez M.D. SOURCE: ABSCESS ENTR: 06/03/[address] [facility] [address]: Obi Mendez M.D. SPDESC: TOE R5 Eleuterio Hardin D.O. Rowe-Bauer, Christina L., Zion Matson M.D. Thomas, Peter W., D.O. ORDERED: AER/RAO CULTSMR Procedure Result Verified Site GRAM STAIN Final 06/04/16 RESULT MODERATE WBCs SEEN MODERATE GRAM POSITIVE COCCI Phoned results to MINNIE DOSHI on 06/03/16 at 1543 by Kathia Holliday. Results were verbalized back to YESICA. OR AER/RAO CULT Preliminary 06/05/16-1520 Organism 1 STAPHYLOCOCCUS AUREUS QUANITY MODERATE SENS SENSITIVITY TO FOLLOW +MIXWOUND PLUS LOW COUNTS OF PROBABLE SKIN LUCAS 1. STAPHYLOCOCCUS AUREUS Target Route Dose RX AB Cost M.I.C. IQ ------ ----- ------ -- ------ -------- - ------ TRIMET/SULFA S <=0.5/ 9.5 * OXACILLIN S 0.5 VANCOMYCIN S 1 ERYTHROMYCIN R >4 TETRACYCLINE S <=4 CLINDAMYCIN S <=0.5 DAPTOMYCIN S <=0.5 S = SENSITIVE I = INTERMEDIATE R = RESISTANT Recent Pertinent Medications Item Value Date Time Vancomycin HCl 270 ml @ 125 mls/hr 06/02/16 2030 1000 mg/Sodium 2030 ONCE/IV 06/02/16 2310 Chloride Vancomycin HCl 260 ml @ 125 mls/hr 06/05/16 0030 500 mg/Sodium TODAY@0030/IV 06/05/16 0014 Chloride Item Value Date Time Piperacillin Sod/ 4.5 gm 06/02/16 0959 Tazobactam Sod NOW STAT/IV 06/02/16 1132 (Zosyn Iv) Piperacillin Sod/ 120 ml @ 30 mls/hr 06/02/16 2000 Tazobactam Sod Q12H/IV 06/05/16 0800 4.5 gm/Dextrose Item Value Date Time Clindamycin 54 ml @ 100 mls/hr 06/04/16 1430 Phosphate 600 mg/ Q8H/IV 06/05/16 1447 Dextrose Assessment & Plan Vancomycin * 75 yo M admitted with RLE diabetic foot infection/cellulitis/possible osteomyelitis s/p I&D/toe amputation 06/03/16 * Goal peak level: 30-40mcg/mL * Goal trough level: 15-20mcg/mL * Ordered random level for this morning to follow yesterday's HD, however HD not complete until after midnight & level drawn ~1am * Re-ordered random level for tomorrow morning, should still be therapeutic due to post-HD dose given last night * Next HD session likely to be scheduled for tuesday06/07/16 Pharmacy will continue to follow and will adjust dose/frequency as necessary. Thank you
[2016-06-05 15:58] VITALS: BP 114/67; PULSE 103; TEMP 36.5; O2SAT 91
--- NOTE | 2016-06-05 18:43 | Progress Note ---
Subjective Date of Service: Jun 05, 2016. 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 Right foot noted to be much better today, the erythema was significantly improved, the wound itself was clean and granulated, no remaining purulent drainage was expressible from the foot today. Mention of wound care to come apply dressings - I agree with this and it would help to have more advanced wound dressings on the wound now that the acute infection is resolving. Today the dressings were removed and more sutures removed, more of the skin and subcutaneous tissues were debrided today at bedside and overall granular wound now present. Patient was in OK spirits today, did also have some nausea which medicine is addressing, Problem List Medical Problems: (1) Cellulitis of right foot Status: Acute (2) Sepsis Status: Acute Review of Systems right foot POD 2 - dressings removed today, debridement performed at bedside, improvement noted in erythema and edema, no purulent drainage expressible, pain improved, dorsal incision with granular tissue distally, 2 sutures present proximally, plantar ulcer with granular base, 5th digit still swollen with some peeling skin at base of 5th digit Objective Vital Signs Date Time Temp Pulse Resp B/P Pulse Ox O2 Delivery O2 Flow Rate FiO2 06/05/16 16:09 94 06/05/16 16:00 Room Air 06/05/16 15:58 36.5 103 18 114/67 91 Room Air 06/05/16 12:00 Room Air 06/05/16 11:54 36.4 132 18 113/56 91 Room Air 06/05/16 08:18 37.1 119 20 101/50 91 Room Air 06/05/16 08:00 Room Air 06/05/16 05:40 135 06/05/16 04:10 37.1 135 18 106/64 93 Room Air 06/05/16 04:00 Room Air 06/05/16 01:18 131 06/05/16 00:00 Room Air 06/04/16 23:55 37.1 119 16 117/57 90 Room Air 06/04/16 23:12 36.6 121 128/67 06/04/16 23:00 124 120/63 06/04/16 22:45 116 111/62 06/04/16 22:30 124 121/57 06/04/16 22:15 110 124/60 06/04/16 22:00 118 130/67 06/04/16 21:45 124 116/57 06/04/16 21:30 131 122/60 06/04/16 21:15 132 119/65 06/04/16 21:00 122 127/59 06/04/16 20:45 130 129/65 06/04/16 20:40 36.8 124 132/67 06/04/16 20:01 Room Air 06/04/16 19:51 36.8 133 18 110/82 100 Room Air Physical Exam Skin: + pertinent finding (right foot s/p 5th metatarsal head resection, I and D, ulcer debridement - improving) Laboratory Results Last 24 Hours Test 06/04/16 19:45 06/04/16 20:05 06/05/16 01:07 06/05/16 07:06 Urine Color DK YELLOW Urine Appearance CLOUDY Urine pH 6.5 Urine Specific [place] 1.021 Urine Protein 4+ Urine Glucose (UA) 2+ Urine Ketones NEG Urine Occult Blood 2+ Urine Nitrite NEG Urine Bilirubin NEG Urine Urobilinogen NEG Urine Leukocyte Esterase TRACE Urine WBC (Auto) 10-30 /hpf Urine RBC (Auto) 10-30 /hpf Urine Hyaline Casts (Auto) 10-30 /lpf Urine Epithelial Cells (Auto) >30 /lpf Urine Bacteria (Auto) NEG Urine Renal Epithelial Cells 10-20 /lpf Urine Pathogenic Casts 10-20 GRANULAR CASTS /lpf Urine Yeast (Auto) PRESENT Bedside Glucose 234 mg/dl 96 mg/dl White Blood Count 15.22 K/uL Red Blood Count 2.88 M/uL Hemoglobin 8.9 g/dL Hematocrit 25.9 % Mean Corpuscular Volume 89.9 fL Mean Corpuscular Hemoglobin 30.9 pg Mean Corpuscular Hemoglobin Concent 34.4 g/dl RDW Standard Deviation 45.9 fL RDW Coefficient of Variation 13.9 % Platelet Count 346 K/uL Mean Platelet Volume 8.5 fL Sodium Level 135 mmol/L Potassium Level 3.5 mmol/L Chloride Level 91 mmol/L Carbon Dioxide Level 33 mmol/L Anion Gap 11.0 mmol/L Blood Urea Nitrogen 49 mg/dl Creatinine 6.80 mg/dl Est Creatinine Clear Calc Drug Dose 13.7 ml/min Estimated GFR () 8.4 Estimated GFR (Non- 7.3 BUN/Creatinine Ratio 7.4 Random Glucose 132 mg/dl Calcium Level 8.0 mg/dl Magnesium Level 2.4 mg/dl Random Vancomycin Level 17.3 mcg/ml Hepatitis B Surface Antigen NEG Hepatitis B Surface Antibody NEG Test 06/05/16 11:29 Bedside Glucose 83 mg/dl Assessment and Plan 1. right foot POD 2 - I and D, 5th metatarsal head resection, ulcer debridement - improved erythema and swelling,no purulent drainage expressible, area was flushed with saline, more sutures removed today and debridement performed, WBC trending down, post xrays stable and show 5th metatarsal head resection ; applied adaptic with gauze, continue elevate right foot with pillow and recommend partial weightbearing at this time time, appreciate ID recs, pathology still pending at this time, recommend wound care consult for advanced dressings therapy, right foot improvement noted today Continued [facility] stay due to: multiple IV medications needed Discharge planning: uncertain
[2016-06-05 19:13] VITALS: BP 122/61; PULSE 96; TEMP 36.5; O2SAT 93
[2016-06-05] MEDS: TAMSULOSIN HCL 0.4 MG CAP PO SCH (20:34)
[2016-06-05] MEDS: ALLOPURINOL 100 MG TAB PO SCH (20:35)
[2016-06-05] MEDS: INSULIN DETEMIR FLEXPEN/FLEX TOUCH 100 UNITS/ML 3ML SC SCH (21:00)
[2016-06-05] MEDS: TRAZODONE HCL 100 MG TAB PO SCH (21:32)
[2016-06-05] MEDS: TRAZODONE HCL 50 MG TAB PO SCH (21:32)
[2016-06-05 23:30] VITALS: BP 128/70; PULSE 94; TEMP 36.4; O2SAT 90
[2016-06-06] VITALS (8 sets, daily range): BP systolic 132–158; BP diastolic 57–77; PULSE 64–110; TEMP 36.5–36.8; O2SAT 90–95
[2016-06-06] MEDS ORDERED: NURSING VERBAL MED ORDER ONE (05:15)
[2016-06-06] MEDS ORDERED: MoRPHine SULFATE 2 MG/ML CARP IV STA (05:19)
[2016-06-06] MEDS: CLINDAMYCIN IV 600 MG in DEXTROSE 5% ADD-VANTAGE 50ML 50 ML IV SCH (05:28)
[2016-06-06] MEDS: HEPARIN SOD 5000 UNIT/0.5 ML CARP SQ SCH ×3 (05:30→21:04)
[2016-06-06 06:08] LABS: HEMATOCRIT 26.2 % (42-52); MEAN CORPUSCULAR HEMOGLOBIN 30.9 pg (25-34); MEAN PLATELET VOLUME 8.5 fL (7.4-10.4); PLATELET COUNT 364 K/uL (130-400); RED BLOOD COUNT 2.88 M/uL (4.7-6.1); WHITE BLOOD COUNT 12.83 K/uL (4.8-10.8)
[2016-06-06 07:06] LABS: BUN/CREATININE RATIO 7.5 (10-20); CALCIUM 8.4 mg/dl (8.5-10.1); CREATININE 8.6 mg/dl (0.60-1.40); POTASSIUM 3.9 mmol/L (3.5-5.1); THYROID STIMULATING HORMONE 3.41 uIu/ml (0.300-4.500)
[2016-06-06] MEDS: ASPIRIN 81 MG ECTAB PO SCH (08:17)
[2016-06-06] MEDS: FUROSEMIDE 40 MG TAB PO SCH (08:17)
[2016-06-06] MEDS: CALCIUM ACETATE 667MG GELCAP PO SCH ×3 (08:17→17:26)
[2016-06-06] MEDS: METOPROLOL SUCC 50MG EXT REL TAB PO SCH (08:17)
[2016-06-06] MEDS: ATORVASTATIN 20 MG TAB PO SCH (08:17)
[2016-06-06] MEDS: CHOLECALCIFEROL 1000 INTER.UNIT TAB PO SCH (08:17)
[2016-06-06] MEDS: RANITIDINE HCL 150 MG TAB PO SCH (08:18)
[2016-06-06] MEDS: INSULIN ASPART 100 UNITS/ML 3 ML PEN SC SCH ×4 (08:22→21:04)
[2016-06-06] MEDS: POLYETHYLENE (MIRALAX) 17 GM PACK PO SCH (08:22)
[2016-06-06] MEDS: CHLORDIAZEPOXIDE 10 MG CAP PO SCH ×2 (08:25→21:06)
[2016-06-06] MEDS: PIPERACILL/TAZOBAC IV 4.5 GM in DEXTROSE 5% 100ML 100 ML IV SCH ×2 (08:26→21:06)
--- NOTE | 2016-06-06 11:27 | Pharmacy Progress Note ---
Pharmacy Antibiotic Prog Note Date of Service Jun 06, 2016. Subjective The patient is currently receiving IV Vancomycin dosing guided by random levels due to CKD/HD. The patient is currently on day #5 of IV therapy. Objective Height (Feet): 6 Height (Inches): 1.00 Weight (Kilograms): 116.500 Levels: Item Value Date Time Random Vancomycin Level 9.2 mcg/ml 06/02/16 1705 Random Vancomycin Level 20.0 mcg/ml 06/03/16 0700 Random Vancomycin Level (drawn during infusion) 17.3 mcg/ml 06/05/16 0107 Random Vancomycin Level 16.4 mcg/ml 06/06/16 0535 Lab Results (24hrs): Laboratory Tests Test 06/06/16 05:35 BUN/Creatinine Ratio 7.5 Blood Urea Nitrogen 64 mg/dl Creatinine 8.60 mg/dl White Blood Count 12.83 K/uL Micro Results: Item Value Date Time Blood Culture - Preliminary Resulted 06/02/16 1050 Blood NO GROWTH TO DATE. Blood Culture - Preliminary Resulted 06/02/16 1110 Blood NO GROWTH TO DATE. Urine Culture - Final Complete 06/04/16 1945 Urine , Clean Catch NO GROWTH - LESS THAN 1,000 COLONIES/ML Item Value Date Time Gram Stain - Final Resulted 06/03/16 1349 Abscess Foot Right RUN DATE: 06/06/16 [facility] LAB PAGE 1 RUN TIME: 1051 Specimen Inquiry PATIENT: GUILLERMO MARTINEZ LOC: C.2T U # : [id number] AGE/SX: 75/M ROOM: S237 REG : 06/02/[address]: Kentrell Suárez M : 1940 BED: 1 DIS : STATUS: ADM IN TLOC: SPEC #: [id number] PRUDENCIO: 06/03/16 STATUS: RES REQ #: [id number] RECD: 06/03/[address]: Kentrell Suárez M.D. SOURCE: ABSCESS ENTR: 06/03/[address]: Obi Mendez M.D. SPDESC: FOOT RIGHT Eleuterio Hardin D.O. Rowe-Bauer, Christina L., Zion Matson M.D. Thomas, Peter W., D.O. ORDERED: AER/RAO CULTSMR Procedure Result Verified Site GRAM STAIN Final 06/04/16-0648 RESULT MODERATE WBCs SEEN MODERATE GRAM POSITIVE COCCI Phoned results to MINNIE BOSWELL (RM [id number]) on 06/03/16 at 1545 by Kathia Holliday. Results were verbalized back to YESICA. OR AER/RAO CULT Preliminary 06/06/16-1051 Organism 1 ALPHA STREP. NOT ENTEROCOCCUS QUANITY MODERATE SENS NO SENSITIVITY TO FOLLOW Organism 2 STAPHYLOCOCCUS AUREUS QUANITY FEW SENS SENSITIVITY TO FOLLOW Organism 3 GRAM NEGATIVE BACILLI QUANITY FEW SENS SENSITIVITIES DEPENDENT ON FURTHER IDENTIFICATION 2. STAPHYLOCOCCUS AUREUS Target Route Dose RX AB Cost M.I.C. IQ ------ ----- ------ -- ------ -------- - ------ TRIMET/SULFA S <=0.5/ 9.5 * OXACILLIN S 1 VANCOMYCIN S 2 ERYTHROMYCIN R >4 TETRACYCLINE S <=4 CLINDAMYCIN S <=0.5 DAPTOMYCIN S 1 S = SENSITIVE I = INTERMEDIATE R = RESISTANT Item Value Date Time Gram Stain - Final Resulted 06/03/16 0369 Abscess Toe Right 5 RUN DATE: 06/05/16 [facility] LAB PAGE 1 RUN TIME: 1610 Specimen Inquiry PATIENT: GUILLERMO MARTINEZ LOC: Raffaele U # : [id number] AGE/SX: 75/M ROOM: 37 REG : 06/02/[address]: Kentrell Suárez M : 1940 BED: 1 DIS : STATUS: ADM IN TLOC: SPEC #: [id number] PRUDENCIO: 06/03/16 STATUS: RES REQ #: [id number] RECD: 06/03/[address]: Kentrell Suárez M.D. SOURCE: ABSCESS ENTR: 06/03/[address] [facility] [address]: Obi Mendez M.D. [facility]: Eleuterio Schneider D.O. Rowe-Bauer, Christina L., Zion Matson M.D. Thomas, Peter W., D.O. ORDERED: AER/RAO CULTSMR Procedure Result Verified Site GRAM STAIN Final 06/04/16-712 RESULT MODERATE WBCs SEEN MODERATE GRAM POSITIVE COCCI Phoned results to MINNIE DOSHI on 06/03/16 at 1543 by Kathia Holliday. Results were verbalized back to YESICA. OR AER/RAO CULT Preliminary 06/05/16-1610 Organism 1 STAPHYLOCOCCUS AUREUS QUANITY MODERATE SENS SENSITIVITY TO FOLLOW +MIXWOUND PLUS LOW COUNTS OF PROBABLE SKIN LUCAS Organism 2 ENTEROCOCCUS SPECIES QUANITY FEW SENS SENSITIVITY TO FOLLOW Organism 3 GRAM NEGATIVE BACILLI QUANITY FEW SENS SENSITIVITIES DEPENDENT ON FURTHER IDENTIFICATION 1. STAPHYLOCOCCUS AUREUS Target Route Dose RX AB Cost M.I.C. IQ ------ ----- ------ -- ------ -------- - ------ TRIMET/SULFA S <=0.5/ 9.5 * OXACILLIN S 0.5 VANCOMYCIN S 1 ERYTHROMYCIN R >4 TETRACYCLINE S <=4 CLINDAMYCIN S <=0.5 DAPTOMYCIN S <=0.5 S = SENSITIVE I = INTERMEDIATE R = RESISTANT Recent Pertinent Medications Item Value Date Time Vancomycin HCl 270 ml @ 125 mls/hr 06/02/162029 1000 mg/Sodium 2030 ONCE/IV 06/02/16 2310 Chloride Vancomycin HCl 260 ml @ 125 mls/hr 06/05/16 0030 500 mg/Sodium TODAY@0030/IV 06/05/16 0014 Chloride Item Value Date Time Piperacillin Sod/ 4.5 gm 06/02/16 0959 Tazobactam Sod NOW STAT/IV 06/02/16 1132 (Zosyn Iv) Piperacillin Sod/ 120 ml @ 30 mls/hr 06/02/161999 Tazobactam Sod Q12H/IV 06/06/16 0826 4.5 gm/Dextrose Assessment & Plan Vancomycin * 75 yo M admitted with RLE diabetic foot infection/cellulitis/possible osteomyelitis s/p I&D/toe amputation 06/03/16 * Goal peak level: 30-40mcg/mL * Goal trough level: 15-20mcg/mL * Random level from yesterday was re-ordered for today due to level being drawn during infusion * Random level this mornin.4mcg/mL --> Therapeutic * Next HD session scheduled for tomorrow (tuesday06/07/16) * Random level ordered for AM prior to dialysis--can assess patient's clearance between HD sessions Pharmacy will continue to follow and will adjust dose/frequency as necessary. Thank you
--- NOTE | 2016-06-06 11:57 | Nephrology Progress Note ---
Nephrology Progress Note Date of Service Jun 06, 2016. Chief Complaint Follow-up for end-stage renal disease on hemodialysis. Donna Díaz was seen and examined in his room this morning with his daughter Zita at bedside. Although he does not feel great, he slept better last night. Currently denies any shortness of breath or chest pain. Blood pressure well control. Volume status seems acceptable. Review of Systems A complete review of systems was performed. Pertinent positives are noted above. All other systems are negative. Vital Signs Last 8 Hrs Date Time Temp Pulse Resp B/P Pulse Ox O2 Delivery O2 Flow Rate FiO2 06/06/16 11:39 36.6 68 18 132/67 93 Room Air 06/06/16 08:00 36.6 73 18 133/67 93 Room Air 06/06/16 08:00 Room Air 06/06/16 04:50 110 133/57 95 06/06/16 04:30 36.7 105 18 135/60 90 Room Air 06/06/16 04:00 Room Air I & O 24-Hour Column 06/06/16 08:00 Intake Total 1065 ml Balance 1065 ml Last Recorded Weight Weight (Kilograms): 116.500 Physical Exam GENERAL: Elderly male , AAA x 3, ill-appearing, not in any distress. NECK: Supple, no JVD. RESPIRATORY: Normal breathing efforts, no accessory muscle use, clear to auscultation bilaterally, no wheezes or rales. CARDIOVASCULAR: S1, S2 normal, rate rhythm regular. EXTREMITY: Right foot wrapped in dressing, it erythema and swelling much improved. NEURO: speech fluent. PSYCHIATRY: less irritable today Compared to yesterday . Family History FH: diabetes mellitus AUNT FH: stroke GRANDMOTHER Negative for CKD / ESRD Social History Smoking Status: Unknown if ever smoked Drug Use: none Marital Status: Housing Status: lives with family Occupation: retired . Retired. Former smoker (2ppd x 45 years, quit 2002) Laboratory Results Past 24 Hours 06/06/16 05:35 06/06/16 05:35 Test 06/05/16 20:09 06/06/16 05:35 06/06/16 06:54 Bedside Glucose 110 mg/dl (70-99) 147 mg/dl (70-99) Red Blood Count 2.88 M/uL (4.7-6.1) Mean Corpuscular Volume 91.0 fL (80-100) Mean Corpuscular Hemoglobin 30.9 pg (25-34) Mean Corpuscular Hemoglobin Concent 34.0 g/dl (32-36) RDW Standard Deviation 46.8 fL (36.4-46.3) RDW Coefficient of Variation 14.0 % (11.5-14.5) Mean Platelet Volume 8.5 fL (7.4-10.4) Anion Gap 11.0 mmol/L (3-11) Est Creatinine Clear Calc Drug Dose 10.1 ml/min Estimated GFR () 6.3 Estimated GFR (Non- 5.5 BUN/Creatinine Ratio 7.5 (10-20) Calcium Level 8.4 mg/dl (8.5-10.1) Thyroid Stimulating Hormone (TSH) 3.410 uIu/ml (0.300-4.500) Random Vancomycin Level 16.4 mcg/ml Digoxin Level 1.0 ng/ml (0.8-2.0) Allergies Coded Allergies: No Known Allergies (Verified , 06/02/16) Medications Current Inpatient Medications Medications (Trade) Dose Ordered Sig/Eliseo Route Start Time Stop Time Status Last Admin Dose Admin Heparin Sodium (Porcine) (Heparin Sq 5000 Unit/0.5ml) 5,000 unit Q8 SQ 06/02/16 22:00 07/02/16 21:59 06/06/16 05:30 5,000 UNIT Magnesium Hydroxide (Milk Of Magnesia Susp) 30 ml Q6H PRN PO 06/02/16 12:30 07/02/16 12:29 Polyethylene (Miralax Powder Packet) 17 gm DAILY PO 06/03/16 08:00 07/03/16 08:59 06/05/16 07:56 17 GM Allopurinol (Zyloprim Tab) 100 mg HS PO 06/02/16 21:00 07/02/16 20:59 06/05/16 20:35 100 MG Amlodipine Besylate (Norvasc Tab) 5 mg QAM PO 06/03/16 08:00 07/03/16 08:59 Future Hold 06/03/16 08:26 5 MG Aspirin (Ecotrin Tab) 81 mg QAM PO 06/03/16 08:00 07/03/16 08:59 06/06/16 08:17 81 MG Atorvastatin Calcium (Lipitor Tab) 20 mg DAILY PO 06/03/16 08:00 07/03/16 08:59 06/06/16 08:17 20 MG Calcium Acetate (Phoslo Cap) 667 mg TIDM PO 06/02/16 17:00 07/02/16 16:59 06/06/16 08:17 667 MG Furosemide (Lasix Tab) 40 mg DAILY PO 06/03/16 08:00 07/03/16 08:59 06/06/16 08:17 40 MG Ipratropium Elaine (Atrovent Hfa Inhaler) 2 puffs QID PRN INH 06/02/16 12:30 07/02/16 12:29 Albuterol/ Ipratropium (Duoneb) 3 ml Q4H PRN INH 06/02/16 12:30 07/02/16 12:29 Meclizine HCl (Antivert Tab) 25 mg Q4H PRN PO 06/02/16 12:30 07/02/16 12:29 Metoprolol Succinate (Toprol Xl Tab) 50 mg QAM PO 06/03/16 08:00 07/03/16 08:59 06/06/16 08:17 50 MG Tamsulosin HCl (Flomax Cap) 0.4 mg HS PO 06/02/16 21:00 07/02/16 20:59 06/05/16 20:34 0.4 MG Cholecalciferol (Vitamin D Tab) 2,000 inter.unit QAM PO 06/03/16 08:00 07/03/16 08:59 06/06/16 08:17 2,000 INTER.UNIT Insulin Detemir (Levemir Flexpen/ FlexTouch) 80 unit HS SC 06/02/16 21:00 07/02/16 20:59 06/04/16 20:34 80 UNIT Ranitidine HCl (zANTac TAB) 300 mg QAM PO 06/03/16 08:00 07/03/16 08:59 06/06/16 08:18 300 MG Oxycodone/ Acetaminophen (Percocet 5-325mg Tab) 1 tab Q4H PRN PO 06/02/16 12:30 06/16/16 12:29 06/04/16 08:11 1 TAB Morphine Sulfate (MoRPHine SULFATE INJ) 2 mg Q2H PRN IV 06/02/16 12:30 06/16/16 12:29 06/05/16 10:05 2 MG Tramadol HCl 50 mg 50 mg Q4H PRN PO 06/02/16 12:30 07/02/16 12:29 06/05/16 20:45 50 MG Piperacillin Sod/ Tazobactam Sod/ Dextrose (Zosyn Iv/D5 100ml) 120 ml @ 30 mls/hr Q12H IV 06/02/16 20:00 07/14/16 19:59 06/06/16 08:26 30 MLS/HR Piperacillin Sod/ Tazobactam Sod (Consult) 1 ea UD PRN N/A 06/02/16 15:00 07/02/16 14:59 Vancomycin HCl (Consult) 1 ea UD PRN N/A 06/02/16 15:00 07/02/16 14:59 Glucose (Glucose 40% Gel) 15-30 GRAMS 15 GRAMS... UD PRN PO 06/02/16 17:00 07/02/16 16:59 Glucose (Glucose Chew Tab) 4-8 Tablets 4 Tabl... UD PRN PO 06/02/16 17:00 07/02/16 16:59 Dextrose (Dextrose 50% 50ML Syringe) 25-50ML OF 50% DW IV FOR... UD PRN IV 06/02/16 17:00 07/02/16 16:59 Glucagon (Glucagon Inj) 1 mg UD PRN SQ 06/02/16 17:00 07/02/16 16:59 Insulin Aspart (novoLOG ASPART) SLIDING SCALE If C... ACHS SC 06/02/16 21:00 07/02/16 20:59 06/06/16 08:22 4 UNITS Acetaminophen (Tylenol Tab) 650 mg Q4H PRN PO 06/03/16 14:30 07/03/16 14:29 06/03/16 20:32 650 MG Al Hydrox/Mg Hydrox/Simethicone (Maalox Max Susp) 15 ml Q4H PRN PO 06/03/16 14:30 07/03/16 14:29 Magnesium Hydroxide (Milk Of Magnesia Susp) 30 ml Q12H PRN PO 06/03/16 14:30 07/03/16 14:29 Ondansetron HCl (Zofran Inj) 4 mg Q6H PRN IV 06/03/16 14:30 07/03/16 14:29 06/05/16 15:11 4 MG Oxycodone/ Acetaminophen (Percocet 5-325mg Tab) 2 tab Q4H PRN PO 06/03/16 14:30 06/17/16 14:29 Metoclopramide HCl (Reglan Inj) 5 mg Q6H PRN IV 06/03/16 14:30 07/03/16 14:29 06/05/16 17:22 5 MG Acetaminophen/ Hydrocodone Bitart 1 tab 1 tab Q4H PRN PO 06/03/16 14:30 06/17/16 14:29 Clindamycin Phosphate/Dextrose (Cleocin Iv/ Dextrose Add-[place] 50ML) 54 ml @ 100 mls/hr Q8H IV 06/04/16 14:30 06/06/16 14:29 06/06/16 05:28 100 MLS/HR Trazodone HCl (Desyrel Tab) 100 mg HS PO 06/05/16 21:00 07/05/16 20:59 06/05/16 21:32 100 MG Chlordiazepoxide (Librium Cap) 10 mg BID PO 06/06/16 09:00 07/06/16 08:59 06/06/16 08:25 10 MG Trazodone HCl (Desyrel Tab) 25 mg HS PO 06/05/16 21:00 07/05/16 20:59 06/05/16 21:32 25 MG Impression (1) End-stage renal disease on hemodialysis (2) Cellulitis of right foot (3) Sepsis (4) Monoclonal gammopathy (5) Diabetes mellitus, type II Recommendations --currently his volume status, electrolyte and blood pressure acceptable, will schedule for 4 hours dialysis tomorrow with aim for 3 liters ultra filtration. Discussed with the dialysis nurse and requested to have the treatment at patient 's room as per patient's request. -- avoid further IV fluid, continue on phosphate binder with each meal. -- AVF w/ high pitched bruit. Doppler is suggestive of venous stenosis. Vascular surgery is planning fistulagram Tuesday06/07/16 -- Patient underwent right foot ulcer debridement w/ resection of fifth metatarsal head by podiatry 06/03/16 -- Blood cx are NGTD. On vanc, Zosyn and clindamycin as per ID recommendation.
--- NOTE | 2016-06-06 15:12 | Progress Note ---
Subjective Date of Service: Jun 06, 2016. Subjective pt had a better night, did sleep, Dr aGines requests wound care eval Problem List Medical Problems: (1) Cellulitis of right foot Status: Acute (2) Sepsis Status: Acute Review of Systems Constitutional: + weakness, No chills, No fever Respiratory: No cough, No sputum, No wheezing Cardiac: + edema, No chest pain Abdomen: No diarrhea, No nausea, No pain, No vomiting Musculoskeletal: + joint pain, + muscle pain, + swelling Male : No dysuria, No urinary frequency Objective Vital Signs Date Time Temp Pulse Resp B/P Pulse Ox O2 Delivery O2 Flow Rate FiO2 06/06/16 12:00 Room Air 06/06/16 11:39 36.6 68 18 132/67 93 Room Air 06/06/16 08:00 36.6 73 18 133/67 93 Room Air 06/06/16 08:00 Room Air 06/06/16 04:50 110 133/57 95 06/06/16 04:30 36.7 105 18 135/60 90 Room Air 06/06/16 04:00 Room Air 06/06/16 00:01 Room Air 06/05/16 23:30 36.4 94 16 128/70 90 Room Air 06/05/16 23:23 91 06/05/16 20:00 Room Air 06/05/16 19:13 36.5 96 17 122/61 93 Room Air 06/05/16 16:09 94 06/05/16 16:00 Room Air 06/05/16 15:58 36.5 103 18 114/67 91 Room Air Physical Exam General Appearance: WD/WN, + mild distress Neck: supple, no JVD Respiratory/Chest: chest non-tender, lungs clear, normal breath sounds Cardiovascular: regular rate, rhythm, no murmur Abdomen: normal bowel sounds, soft Extremities: + pedal edema, + swelling Neurologic/Psychiatric: alert, oriented x 3 Laboratory Results Last 24 Hours Test 06/05/16 20:09 06/06/16 05:35 06/06/16 06:54 06/06/16 11:28 Bedside Glucose 110 mg/dl 147 mg/dl 279 mg/dl White Blood Count 12.83 K/uL Red Blood Count 2.88 M/uL Hemoglobin 8.9 g/dL Hematocrit 26.2 % Mean Corpuscular Volume 91.0 fL Mean Corpuscular Hemoglobin 30.9 pg Mean Corpuscular Hemoglobin Concent 34.0 g/dl RDW Standard Deviation 46.8 fL RDW Coefficient of Variation 14.0 % Platelet Count 364 K/uL Mean Platelet Volume 8.5 fL Sodium Level 128 mmol/L Potassium Level 3.9 mmol/L Chloride Level 88 mmol/L Carbon Dioxide Level 29 mmol/L Anion Gap 11.0 mmol/L Blood Urea Nitrogen 64 mg/dl Creatinine 8.60 mg/dl Est Creatinine Clear Calc Drug Dose 10.1 ml/min Estimated GFR () 6.3 Estimated GFR (Non- 5.5 BUN/Creatinine Ratio 7.5 Random Glucose 118 mg/dl Calcium Level 8.4 mg/dl Thyroid Stimulating Hormone (TSH) 3.410 uIu/ml Random Vancomycin Level 16.4 mcg/ml Digoxin Level 1.0 ng/ml Assessment and Plan 75 M with diabetic foot infection at site of chronic wound, surgical debridement, dialysis, PMHx of DM II, HTN, Hyperlipidemia, COPD, ESRD on HD m/ w/f, gout, RLE diabetic foot infection/Cellulitis Possible osteomyelitis RLE R plantar surface of the 5th toe wound gram positives on culture, ID changed to clindamycin, but also yet to be identified Gram negative - Dr. Hart consult surgical debridement 06/03 and remains open, will have wound care eval to see best dressing for healing for secondary intent Afib was rapid overnight treated with B Penelope, still tachy will push dose and continue to monitor digoxin ESRD on HD- Nephrology,Chronic but stable m/w/f. fistulae was eval by Doppler, stenosis suggested, Dr Cabral to adress left leg pain, doppler suggests chronic DVT, no acute treatment, left foot shows no avulsion fracture COPD- stable on inhaled medicines, not on continuous oxygen yet Constipation mirilax and dulcolax supp. HTN seems stable post op amlodipine 5 mg daily, lasix 40 mg PO daily, metoprolol succ 50 mg daily anxiety, librium and hs seroquel Hyperlipidemia: atorvastatin 20 mg daily GERDcontinues with no complaints ranitidine 150 mg HS DVT ppx: Teds, scds, heparin sq CODE STATUS: FULL CODE Disposition: From home, Continued [facility] stay due to: multiple IV medications needed Discharge planning: uncertain
[2016-06-06] MEDS: MoRPHine SULFATE 2 MG/ML CARP IV PRN (17:31)
--- NOTE | 2016-06-06 17:51 | Progress Note ---
Subjective Date of Service: Jun 06, 2016. Subjective Pt evaluation today including: conversation w/ patient Pain: patient had some pain today, was given pain medication by nurse Problem List Medical Problems: (1) Cellulitis of right foot Status: Acute (2) Sepsis Status: Acute Objective Vital Signs Date Time Temp Pulse Resp B/P Pulse Ox O2 Delivery O2 Flow Rate FiO2 06/06/16 15:34 36.5 64 20 141/68 93 Room Air 06/06/16 12:00 Room Air 06/06/16 11:39 36.6 68 18 132/67 93 Room Air 06/06/16 08:00 36.6 73 18 133/67 93 Room Air 06/06/16 08:00 Room Air 06/06/16 04:50 110 133/57 95 06/06/16 04:30 36.7 105 18 135/60 90 Room Air 06/06/16 04:00 Room Air 06/06/16 00:01 Room Air 06/05/16 23:30 36.4 94 16 128/70 90 Room Air 06/05/16 23:23 91 06/05/16 20:00 Room Air 06/05/16 19:13 36.5 96 17 122/61 93 Room Air Physical Exam Skin: + pertinent finding (right foot dressing change performed, dressings may have been too tight when reapplied last night - 5th digit had a blister present around the base of the toe, this was debrided, some serous drainage was in the blister, this was not cultured as it was not infectious; erythema much improved , 5th digit was more swollen today, jason 2ndary to the tight dressing, remaining incisions removed) Laboratory Results Last 24 Hours Test 06/05/16 20:09 06/06/16 05:35 06/06/16 06:54 06/06/16 11:28 Bedside Glucose 110 mg/dl 147 mg/dl 279 mg/dl White Blood Count 12.83 K/uL Red Blood Count 2.88 M/uL Hemoglobin 8.9 g/dL Hematocrit 26.2 % Mean Corpuscular Volume 91.0 fL Mean Corpuscular Hemoglobin 30.9 pg Mean Corpuscular Hemoglobin Concent 34.0 g/dl RDW Standard Deviation 46.8 fL RDW Coefficient of Variation 14.0 % Platelet Count 364 K/uL Mean Platelet Volume 8.5 fL Sodium Level 128 mmol/L Potassium Level 3.9 mmol/L Chloride Level 88 mmol/L Carbon Dioxide Level 29 mmol/L Anion Gap 11.0 mmol/L Blood Urea Nitrogen 64 mg/dl Creatinine 8.60 mg/dl Est Creatinine Clear Calc Drug Dose 10.1 ml/min Estimated GFR () 6.3 Estimated GFR (Non- 5.5 BUN/Creatinine Ratio 7.5 Random Glucose 118 mg/dl Calcium Level 8.4 mg/dl Thyroid Stimulating Hormone (TSH) 3.410 uIu/ml Random Vancomycin Level 16.4 mcg/ml Digoxin Level 1.0 ng/ml Test 06/06/16 16:03 Bedside Glucose 194 mg/dl Assessment and Plan 1. right foot POD 3 - I and D, 5th metatarsal head resection, ulcer debridement - improved erythema, 5th digit swelling likely 2ndary to tight dressings,no purulent drainage expressible, area was flushed with saline, remaining sutures removed today and debridement performed at bedside due to blister that formed around the 5th digit, WBC trending down, post xrays stable and show 5th metatarsal head resection ; applied xerform with gauze, continue to elevate right foot with pillow and recommend partial weightbearing at this time time, appreciate ID recs, pathology still pending at this time, recommend wound care consult for advanced dressings therapy , right foot stable, blister present at 5th digit that was debrided, dressings reapplied today Continued [facility] stay due to: multiple IV medications needed Discharge planning: uncertain
[2016-06-06] MEDS: TRAZODONE HCL 50 MG TAB PO SCH (20:49)
[2016-06-06] MEDS: TRAZODONE HCL 100 MG TAB PO SCH (20:49)
[2016-06-06] MEDS: TAMSULOSIN HCL 0.4 MG CAP PO SCH (20:49)
[2016-06-06] MEDS: ALLOPURINOL 100 MG TAB PO SCH (20:51)
[2016-06-06] MEDS: OXYCODONE/ACETAMINOPHEN 5-325 TAB PO PRN (20:55)
[2016-06-06] MEDS: INSULIN DETEMIR FLEXPEN/FLEX TOUCH 100 UNITS/ML 3ML SC SCH (21:03)
[2016-06-06] MEDS: ALUMINUM/MAGNESIUM/SIMETH (MAALOX MAX) 30 ML UDC PO PRN (21:05)
[2016-06-07] VITALS (27 sets, daily range): BP systolic 105–186; BP diastolic 50–97; PULSE 70–133; TEMP 36.8–37; O2SAT 90–97
[2016-06-07] MEDS ORDERED: LORAZEPAM 2 MG/ML 1 ML VIAL IV STA (01:28)
[2016-06-07] MEDS: HEPARIN SOD 5000 UNIT/0.5 ML CARP SQ SCH ×3 (06:00→21:29)
[2016-06-07] MEDS: INSULIN ASPART 100 UNITS/ML 3 ML PEN SC SCH ×4 (07:00→21:28)
[2016-06-07] MEDS: CALCIUM ACETATE 667MG GELCAP PO SCH ×3 (07:30→19:53)
[2016-06-07] MEDS: PIPERACILL/TAZOBAC IV 4.5 GM in DEXTROSE 5% 100ML 100 ML IV SCH ×2 (08:52→19:53)
[2016-06-07] MEDS: ASPIRIN 81 MG ECTAB PO SCH (08:53)
[2016-06-07] MEDS: METOPROLOL SUCC 50MG EXT REL TAB PO SCH (08:53)
[2016-06-07] MEDS: RANITIDINE HCL 150 MG TAB PO SCH (08:53)
[2016-06-07] MEDS: ATORVASTATIN 20 MG TAB PO SCH (08:53)
[2016-06-07] MEDS: POLYETHYLENE (MIRALAX) 17 GM PACK PO SCH (08:54)
[2016-06-07] MEDS: CHOLECALCIFEROL 1000 INTER.UNIT TAB PO SCH (08:54)
[2016-06-07] MEDS: FUROSEMIDE 40 MG TAB PO SCH (08:54)
--- NOTE | 2016-06-07 08:59 | Progress Note ---
Progress Note Date of Service Jun 07, 2016. Progress Note Patient for fistulogram and possible intervention today. I have discussed the risks options and benefits of the procedure with the patient. The patient understands the risks options and benefits and agrees to the procedure. I have examined the patient, reviewed the History & Physical and in the interval since the performance of the History & Physical I have noted the following changes of clinical significance: No changes noted
--- NOTE | 2016-06-07 09:00 | Procedure Note ---
Pre-Mod Sedation Assessment General Date of Moderate Sedation: Jun 07, 2016. Vital Signs: Vital Signs Past 12 Hours Date Time Temp Pulse Resp B/P Pulse Ox O2 Delivery O2 Flow Rate FiO2 06/07/16 07:59 36.8 80 20 186/85 91 Room Air 06/07/16 06:23 36.8 72 20 137/66 90 Room Air 2.0 06/07/16 04:00 Room Air 06/07/16 00:00 Room Air 06/06/16 23:47 36.8 72 20 137/66 90 Room Air Review Cardiovascular: regular rate, rhythm Abdomen: normal bowel sounds, non tender, soft Lungs: lungs clear Pre-Sedation Airway Assessment Oral Cavity: Dentures Short Thick Neck: No Hx of Sleep Apnea: No Smoking Status: Former Smoker Mallampati Classification: Class I ASA Classification: Class II Notes The planned sedation has been discussed with the patient and consent obtained. I have identified the patient, determined the appropriateness of sedation and have assessed the patient immediately prior to the procedure. All medicine(s) and interventions are by my order.
[2016-06-07] MEDS: CHLORDIAZEPOXIDE 10 MG CAP PO SCH ×2 (09:13→19:59)
[2016-06-07] MEDS ORDERED: MIDAZOLAM HCL 1 MG/ML 2ML VIAL ONE (09:24)
[2016-06-07] MEDS ORDERED: FENTANYL CITRATE INJ 50 MCG/1 ML 2 ML VIAL ONE (09:24)
--- NOTE | 2016-06-07 09:40 | Progress Note ---
Progress Note Date of Service Jun 07, 2016. Progress Note Patient with increase heart rate and desaturation into high 80's. Will cancel procedure.
[2016-06-07] MEDS ORDERED: METOPROLOL TARTRATE 1 MG/ML VIAL ONE (10:45)
[2016-06-07] MEDS: ACETAMINOPHEN 325 MG TAB PO PRN (10:52)
--- NOTE | 2016-06-07 10:53 | Progress Note ---
Subjective Date of Service: Jun 07, 2016. Subjective Pt evaluation today including: conversation w/ patient, physical exam, chart review Received ativan last night and more somnolent this am. Returned from OR (cancelled fistulogram) due to atrial flutter with RVR. Also noted to be more hypoxic. O2 sats were 97 percent on RA prior to tx to OR holding area. Problem List Medical Problems: (1) Cellulitis of right foot Status: Acute (2) Sepsis Status: Acute Review of Systems Constitutional: + chills, + fever Respiratory: + shortness of breath Cardiac: + edema Objective Vital Signs Date Time Temp Pulse Resp B/P Pulse Ox O2 Delivery O2 Flow Rate FiO2 06/07/16 09:30 133 24 151/50 91 Nasal Cannula 4.0 06/07/16 07:59 36.8 80 20 186/85 91 Room Air 06/07/16 06:23 36.8 72 20 137/66 90 Room Air 2.0 06/07/16 04:00 Room Air 06/07/16 00:00 Room Air 06/06/16 23:47 36.8 72 20 137/66 90 Room Air 06/06/16 20:00 94 Room Air 2.0 06/06/16 19:25 36.7 85 20 158/77 94 Room Air 06/06/16 16:00 Room Air 06/06/16 15:34 36.5 64 20 141/68 93 Room Air 06/06/16 12:00 Room Air 06/06/16 11:39 36.6 68 18 132/67 93 Room Air Physical Exam General Appearance: + mild distress Neck: supple, no adenopathy, no JVD Respiratory/Chest: chest non-tender, normal breath sounds Cardiovascular: + tachycardia, + irregularly irregular Abdomen: normal bowel sounds, + tenderness (RLQ, no guarding.) Extremities: + pertinent finding (left arm AVF.) Skin: + pertinent finding (RLE swollen. R foot in dressing. ) Laboratory Results Last 24 Hours Test 06/06/16 11:28 06/06/16 16:03 06/06/16 20:20 06/07/16 06:20 Bedside Glucose 279 mg/dl 194 mg/dl 195 mg/dl 154 mg/dl Test 06/07/16 06:33 06/07/16 10:21 Creatinine 11.00 mg/dl Est Creatinine Clear Calc Drug Dose 7.8 ml/min Estimated GFR () 4.7 Estimated GFR (Non- 4.1 Random Vancomycin Level 15.0 mcg/ml Assessment and Plan 75 M with diabetic foot infection at site of chronic wound, surgical debridement, dialysis, PMHx of DM II, HTN, Hyperlipidemia, COPD, ESRD on HD m/ w/f, gout, RLE diabetic foot infection/Cellulitis Possible osteomyelitis RLE R plantar surface of the 5th toe wound gram positives on culture, ID changed to clindamycin, but also yet to be identified Gram negative - Dr. Hart consult surgical debridement 06/03 and remains open, will have wound care eval to see best dressing for healing for secondary intent Afib. A.flutter with RVR this am and hence fistulogram was cancelled. Will consult Cardiology, . Will obtain Echo, TFTs. Will start pt on IV lopressor 2.5mg prn q6h for HR greater than 110. Consider formal anti coagulation. Will liase with Cardiology. Hypoxia. ? secondary to atelectasis vs PNA vs PE. Will obtain stat ABG, CXR. Check CT chest PE protocol. Consult Pulm. Tx to ICU if further deterioration in pulm. status. ESRD on HD- Nephrology,Chronic but stable m/w/f. fistulae was eval by Doppler, stenosis suggested, Dr Cabral to address Fistulogram cancelled due to a.flutter with RVR. left leg pain, doppler suggests chronic DVT, no acute treatment, left foot shows no avulsion fracture COPD- stable on inhaled medicines, not on continuous oxygen yet Constipation mirilax and dulcolax supp. HTN seems stable post op amlodipine 5 mg daily, lasix 40 mg PO daily, metoprolol succ 50 mg daily anxiety, librium and hs seroquel Hyperlipidemia: atorvastatin 20 mg daily GERDcontinues with no complaints ranitidine 150 mg HS DVT ppx: Teds, scds, heparin sq CODE STATUS: FULL CODE Continued [facility] stay due to: multiple IV medications needed Discharge planning: uncertain
[2016-06-07 11:02] LABS: ARTERIAL BLOOD GAS BASE EXCESS 2.5 mEq/L (-9-1.8); ARTERIAL BLOOD GAS HCO3 26 mmol/L (19-24); ARTERIAL BLOOD GAS PO2 67 mm/Hg (80-95); ARTERIAL BLOOD GAS pH 7.47 (7.35-7.45)
[2016-06-07 11:03] LABS: ALLEN TEST POSITIVE (POS); O2 ADMINISTRATION 5 LITERS
--- NOTE | 2016-06-07 11:09 | DIAGNOSTIC IMAGING REPORT ---
CHEST ONE VIEW PORTABLE HISTORY: hypoxia COMPARISON: Chest 06/02/2016. FINDINGS: There is a new right mid to lower lung zone consolidative airspace opacity. This is consistent with a pneumonia. The heart is mildly enlarged. Mild congestive change persists. No pneumothorax. Suspect a trace right pleural effusion. IMPRESSION: A new right mid to lower lung zone consolidative airspace opacity. This likely represents a pneumonia. Recommend follow-up to ensure resolution. Electronically signed by: Theodore Honeycutt M.D. 06/07/2016 11:07 AM Dictated Date/Time: 06/07/2016 11:06 AM
--- NOTE | 2016-06-07 11:31 | Progress Note ---
Subjective Date of Service: Jun 07, 2016. Subjective Pt evaluation today including: conversation w/ patient, chart review, lab review, review of studies, conversation w/ security and privacy consultant (patient was given ativan last night due to his inability to sleep, at bedside to patient was in Afib and RVR, was shaking/rigors, was not coherent in his speech today. Chest xray showed pneumonia, patient had high temp today. Foot itself looking well, however overall patient was worsened medically today, ID has been overseeing antibiotics, also some question as to whether or not the patient has a PE, due to his chronic left sided DVT, which as not been actively treated with heprin.) Pain: patient was given pain medication Problem List Medical Problems: (1) Cellulitis of right foot Status: Acute (2) Sepsis Status: Acute Objective Vital Signs Date Time Temp Pulse Resp B/P Pulse Ox O2 Delivery O2 Flow Rate FiO2 06/07/16 10:51 142 171/93 06/07/16 09:30 133 24 151/50 91 Nasal Cannula 4.0 06/07/16 07:59 36.8 80 20 186/85 91 Room Air 06/07/16 06:23 36.8 72 20 137/66 90 Room Air 2.0 06/07/16 04:00 Room Air 06/07/16 00:00 Room Air 06/06/16 23:47 36.8 72 20 137/66 90 Room Air 06/06/16 20:00 94 Room Air 2.0 06/06/16 19:25 36.7 85 20 158/77 94 Room Air 06/06/16 16:00 Room Air 06/06/16 15:34 36.5 64 20 141/68 93 Room Air 06/06/16 12:00 Room Air 06/06/16 11:39 36.6 68 18 132/67 93 Room Air Physical Exam Skin: + pertinent finding (dressing in place on the right side, not removed today due to patient new onset of rigors/confusion, dressings clean, dry and intact) Laboratory Results Last 24 Hours Test 06/06/16 11:28 06/06/16 16:03 06/06/16 20:20 06/07/16 06:20 Bedside Glucose 279 mg/dl 194 mg/dl 195 mg/dl 154 mg/dl Test 06/07/16 06:33 06/07/16 10:55 Creatinine 11.00 mg/dl Est Creatinine Clear Calc Drug Dose 7.8 ml/min Estimated GFR () 4.7 Estimated GFR (Non- 4.1 Random Vancomycin Level 15.0 mcg/ml Arterial Blood pH 7.47 Arterial Blood Partial Pressure CO2 37 mmHg Arterial Blood Partial Pressure O2 67 mm/Hg Arterial Blood HCO3 26 mmol/L Arterial Blood Oxygen Saturation 92.0 % Arterial Blood Base Excess 2.5 mEq/L Arterial Blood Gas Delivery 5 LITERS Edu Test POSITIVE Assessment and Plan 1. right foot POD 4 - I and D, 5th metatarsal head resection, ulcer debridement - improved erythema, 5th digit swelling somewhat improved, WBC trending down, post xrays stable and show 5th metatarsal head resection ; right foot dressing in place, no change today, continue to elevate right foot with pillow and recommend partial weightbearing at this time time, appreciate ID recs, pathology still pending at this time, recommend wound care consult for advanced dressings therapy, patient will have head and chest CT to further evaluate for the possibility of a stroke which at this time is a low probability, also concern for a PE, pneumonia ID on chest xray, patient is to have dialysis his creat was 11 today, WBC from yesterday was trending down and improving. Continued [facility] stay due to: multiple IV medications needed Discharge planning: uncertain
--- NOTE | 2016-06-07 11:56 | Pharmacy Progress Note ---
Pharmacy Antibiotic Prog Note Date of Service Jun 07, 2016. Subjective The patient is currently receiving Vancomycin per pharmacy consult. The patient is currently on day #6 of Vancomycin IV therapy. Objective Height (Feet): 6 Height (Inches): 1.00 Weight (Kilograms): 114.000 Levels: Item Value Date Time Random Vancomycin Level 15.0 mcg/ml 06/07/16 0633 Lab Results (24hrs): Laboratory Tests Test 06/07/16 06:33 Creatinine 11.00 mg/dl Micro Results: Item Value Date Time Urine Culture - Final Complete 06/04/16 1945 Urine , Clean Catch NO GROWTH - LESS THAN 1,000 COLONIES/ML Gram Stain - Final Resulted 06/03/16 1359 Abscess Toe Right 5 Gram Stain - Final Resulted 06/03/16 1349 Abscess Foot Right Recent Pertinent Medications Item Value Date Time Piperacillin Sod/ 120 ml @ 30 mls/hr 06/02/161999 Tazobactam Sod Q12H/IV 06/07/16 0852 4.5 gm/Dextrose Assessment & Plan This HD patient is being treated with Vancomycin for possible Osteomyelitis/RLE Cellulitis. His random this morning was 15.0 mcg/ml. He is scheduled for HD session sometime today. I scheduled Vancomycin 750mg IV x 1 after dialysis today. Will check random levels with AM labs x the next few mornings and prior to next HD session. Pharmacy will continue to follow and will adjust dose/frequency as necessary. Thank you
--- NOTE | 2016-06-07 12:30 | Nephrology Progress Note ---
Nephrology Progress Note Date of Service Jun 07, 2016. Chief Complaint Follow-up for end-stage renal disease on hemodialysis. Donna Díaz was seen and examined in his room this morning with his nurse at bedside while transportation was waiting to take him to OR for fistulogram. He was awake and alert, but somewhat confused and having chills. Temperature was checked and found to be normal. Blood pressure could not be checked as he was having shaking up this upper extremities. He was taken to were for fistulogram however in OR he was found to have tachycardia and his oxygen saturation was low in 91-92 percent and fistulogram was canceled and he was brought back to his room. Eventually he had a chest x-ray done which showed possible pneumonia. He eventually developed shortness of breath and there was concern for PE and planned to get a CT chest with PE protocol and was transferred to intensive care. Review of Systems A complete review of systems was performed. Pertinent positives are noted above. All other systems are negative. Vital Signs Last 8 Hrs Date Time Temp Pulse Resp B/P Pulse Ox O2 Delivery O2 Flow Rate FiO2 06/07/16 10:51 142 171/93 06/07/16 09:30 133 24 151/50 91 Nasal Cannula 4.0 06/07/16 07:59 36.8 80 20 186/85 91 Room Air 06/07/16 06:23 36.8 72 20 137/66 90 Room Air 2.0 06/07/16 04:00 Room Air I & O 24-Hour Column 06/07/16 08:00 Intake Total 1031 ml Balance 1031 ml Last Recorded Weight Weight (Kilograms): 114.000 Physical Exam GENERAL: Elderly male , AAA x 3, ill-appearing, not in any distress. NECK: Supple, no JVD. RESPIRATORY: Normal breathing efforts, no accessory muscle use, clear to auscultation bilaterally, no wheezes or rales. CARDIOVASCULAR: S1, S2 normal, rate rhythm regular. EXTREMITY: Right foot wrapped in dressing, it erythema and swelling much improved. NEURO: speech fluent. PSYCHIATRY: less irritable today Compared to yesterday . Family History FH: diabetes mellitus AUNT FH: stroke GRANDMOTHER Negative for CKD / ESRD Social History Smoking Status: Unknown if ever smoked Drug Use: none Marital Status: Housing Status: lives with family Occupation: retired . Retired. Former smoker (2ppd x 45 years, quit 2002) Laboratory Results Past 24 Hours 06/07/16 06:33 Test 06/06/16 16:03 06/06/16 20:20 06/07/16 06:20 06/07/16 06:33 Bedside Glucose 194 mg/dl (70-99) 195 mg/dl (70-99) 154 mg/dl (70-99) Est Creatinine Clear Calc Drug Dose 7.8 ml/min Estimated GFR () 4.7 Estimated GFR (Non- 4.1 Random Vancomycin Level 15.0 mcg/ml Test 06/07/16 10:55 06/07/16 11:07 Arterial Blood pH 7.47 (7.35-7.45) Arterial Blood Partial Pressure CO2 37 mmHg (35-46) Arterial Blood Partial Pressure O2 67 mm/Hg (80-95) Arterial Blood HCO3 26 mmol/L (19-24) Arterial Blood Oxygen Saturation 92.0 % (90-95) Arterial Blood Base Excess 2.5 mEq/L (-9-1.8) Arterial Blood Gas Delivery 5 LITERS Edu Test POSITIVE (POS) Bedside Glucose 133 mg/dl (70-99) Allergies Coded Allergies: No Known Allergies (Verified , 06/02/16) Medications Current Inpatient Medications Medications (Trade) Dose Ordered Sig/Eliseo Route Start Time Stop Time Status Last Admin Dose Admin Heparin Sodium (Porcine) (Heparin Sq 5000 Unit/0.5ml) 5,000 unit Q8 SQ 06/02/16 22:00 07/02/16 21:59 06/06/16 21:04 5,000 UNIT Magnesium Hydroxide (Milk Of Magnesia Susp) 30 ml Q6H PRN PO 06/02/16 12:30 07/02/16 12:29 06/06/16 22:32 30 ML Polyethylene (Miralax Powder Packet) 17 gm DAILY PO 06/03/16 08:00 07/03/16 08:59 06/05/16 07:56 17 GM Allopurinol (Zyloprim Tab) 100 mg HS PO 06/02/16 21:00 07/02/16 20:59 06/06/16 20:51 100 MG Amlodipine Besylate (Norvasc Tab) 5 mg QAM PO 06/03/16 08:00 07/03/16 08:59 Future Hold 06/03/16 08:26 5 MG Aspirin (Ecotrin Tab) 81 mg QAM PO 06/03/16 08:00 07/03/16 08:59 06/07/16 08:53 81 MG Atorvastatin Calcium (Lipitor Tab) 20 mg DAILY PO 06/03/16 08:00 07/03/16 08:59 06/07/16 08:53 20 MG Calcium Acetate (Phoslo Cap) 667 mg TIDM PO 06/02/16 17:00 07/02/16 16:59 06/06/16 17:26 667 MG Furosemide (Lasix Tab) 40 mg DAILY PO 06/03/16 08:00 07/03/16 08:59 06/07/16 08:54 40 MG Ipratropium [place] (Atrovent Hfa Inhaler) 2 puffs QID PRN INH 06/02/16 12:30 07/02/16 12:29 Albuterol/ Ipratropium (Duoneb) 3 ml Q4H PRN INH 06/02/16 12:30 07/02/16 12:29 Meclizine HCl (Antivert Tab) 25 mg Q4H PRN PO 06/02/16 12:30 07/02/16 12:29 Metoprolol Succinate (Toprol Xl Tab) 50 mg QAM PO 06/03/16 08:00 07/03/16 08:59 06/07/16 08:53 50 MG Tamsulosin HCl (Flomax Cap) 0.4 mg HS PO 06/02/16 21:00 07/02/16 20:59 06/06/16 20:49 0.4 MG Cholecalciferol (Vitamin D Tab) 2,000 inter.unit QAM PO 06/03/16 08:00 07/03/16 08:59 06/07/16 08:54 2,000 INTER.UNIT Insulin Detemir (Levemir Flexpen/ FlexTouch) 80 unit HS SC 06/02/16 21:00 07/02/16 20:59 06/06/16 21:03 60 UNIT Ranitidine HCl (zANTac TAB) 300 mg QAM PO 06/03/16 08:00 07/03/16 08:59 06/07/16 08:53 300 MG Oxycodone/ Acetaminophen (Percocet 5-325mg Tab) 1 tab Q4H PRN PO 06/02/16 12:30 06/16/16 12:29 06/06/16 20:55 1 TAB Morphine Sulfate (MoRPHine SULFATE INJ) 2 mg Q2H PRN IV 06/02/16 12:30 06/16/16 12:29 06/06/16 17:31 2 MG Tramadol HCl 50 mg 50 mg Q4H PRN PO 06/02/16 12:30 07/02/16 12:29 06/05/16 20:45 50 MG Piperacillin Sod/ Tazobactam Sod/ Dextrose (Zosyn Iv/D5 100ml) 120 ml @ 30 mls/hr Q12H IV 06/02/16 20:00 07/14/16 19:59 06/07/16 08:52 30 MLS/HR Piperacillin Sod/ Tazobactam Sod (Consult) 1 ea UD PRN N/A 06/02/16 15:00 07/02/16 14:59 Vancomycin HCl (Consult) 1 ea UD PRN N/A 06/02/16 15:00 07/02/16 14:59 Glucose (Glucose 40% Gel) 15-30 GRAMS 15 GRAMS... UD PRN PO 06/02/16 17:00 07/02/16 16:59 Glucose (Glucose Chew Tab) 4-8 Tablets 4 Tabl... UD PRN PO 06/02/16 17:00 07/02/16 16:59 Dextrose (Dextrose 50% 50ML Syringe) 25-50ML OF 50% DW IV FOR... UD PRN IV 06/02/16 17:00 07/02/16 16:59 Glucagon (Glucagon Inj) 1 mg UD PRN SQ 06/02/16 17:00 07/02/16 16:59 Insulin Aspart (novoLOG ASPART) SLIDING SCALE If C... ACHS SC 06/02/16 21:00 07/02/16 20:59 06/06/16 21:04 2 UNITS Acetaminophen (Tylenol Tab) 650 mg Q4H PRN PO 06/03/16 14:30 07/03/16 14:29 06/07/16 10:52 650 MG Al Hydrox/Mg Hydrox/Simethicone (Maalox Max Susp) 15 ml Q4H PRN PO 06/03/16 14:30 07/03/16 14:29 06/06/16 21:05 15 ML Magnesium Hydroxide (Milk Of Magnesia Susp) 30 ml Q12H PRN PO 06/03/16 14:30 07/03/16 14:29 Ondansetron HCl (Zofran Inj) 4 mg Q6H PRN IV 06/03/16 14:30 07/03/16 14:29 06/05/16 15:11 4 MG Oxycodone/ Acetaminophen (Percocet 5-325mg Tab) 2 tab Q4H PRN PO 06/03/16 14:30 06/17/16 14:29 Metoclopramide HCl (Reglan Inj) 5 mg Q6H PRN IV 06/03/16 14:30 07/03/16 14:29 06/05/16 17:22 5 MG Acetaminophen/ Hydrocodone Bitart (Foster 5/325 Tab) 1 tab Q4H PRN PO 06/03/16 14:30 06/17/16 14:29 Trazodone HCl (Desyrel Tab) 100 mg HS PO 06/05/16 21:00 07/05/16 20:59 06/06/16 20:49 100 MG Chlordiazepoxide (Librium Cap) 10 mg BID PO 06/06/16 09:00 07/06/16 08:59 06/07/16 09:13 10 MG Trazodone HCl 25 mg 25 mg HS PO 06/05/16 21:00 07/05/16 20:59 06/06/16 20:49 25 MG Vancomycin HCl/ Sodium Chloride (Vancomycin Inj/ Nss 250ml) 265 ml @ 125 mls/hr TODAY@1600 IV 06/07/16 16:00 06/07/16 18:08 Metoprolol Tartrate (Lopressor Iv) 2.5 mg Q6H PRN IV 06/07/16 10:30 07/07/16 10:29 Impression (1) End-stage renal disease on hemodialysis (2) Cellulitis of right foot (3) Sepsis (4) Monoclonal gammopathy (5) Diabetes mellitus, type II Recommendations -- he is scheduled for dialysis this afternoon however will wait for CTA overall how patient is doing considering his respiratory status and vital sign. Chest x-ray is not suggestive of pulmonary congestion and blood pressure well control and his electrolyte acceptable at this point. -- avoid further IV fluid, continue on phosphate binder with each meal. -- will try to reschedule for fistulogram to evaluate for possible of proximal stenosis once patient hemodynamically stable -- Patient underwent right foot ulcer debridement w/ resection of fifth metatarsal head by podiatry 06/03/16, ID is managing the antibiotic for wound culture growing gram positive and gram negative.
--- NOTE | 2016-06-07 12:38 | DIAGNOSTIC IMAGING REPORT ---
CT ANGIOGRAPHY OF THE CHEST, PULMONARY EMBOLUS PROTOCOL CLINICAL HISTORY: Hypoxia. COMPARISON STUDY: Chest radiograph June 07, [address] December 24, 2014. TECHNIQUE: Following IV administration of 94 mL of [id number]-[id number], helical axial images of the chest were obtained utilizing the pulmonary embolus protocol. Maximal intensity projections and sagittal and coronal reformats were viewed on an independent 3D workstation. IV contrast was administered without complication. CT DOSE: 2045.73 mGy.cm FINDINGS: No pulmonary emboli are identified although the segmental and subsegmental pulmonary arteries are suboptimally assessed due to respiratory motion. The heart is mildly enlarged. There is no pericardial effusion. There is no evidence of thoracic aortic dissection. No enlarged thoracic lymph nodes are noted. There is extensive right upper, right middle lobe and right lower lobe consolidation. There is no cavitation. The lungs are suboptimally assessed due to respiratory motion. There is mild emphysema. Central airways are patent. Bony thorax and upper abdomen are unremarkable. IMPRESSION: 1. No pulmonary emboli identified although the segmental and subsegmental pulmonary arteries are suboptimally assessed due to respiratory motion. 2. Extensive right lung consolidation consistent with pneumonia. A follow-up chest CT in 2 months to ensure resolution is recommended. 3. Mild to moderate emphysema. Electronically signed by: Adrian Fox M.D. 06/07/2016 12:35 PM Dictated Date/Time: 06/07/2016 12:27 PM
--- NOTE | 2016-06-07 12:44 | DIAGNOSTIC IMAGING REPORT ---
CT OF THE HEAD WITHOUT CONTRAST CLINICAL HISTORY: Stroke symptoms. COMPARISON STUDY: No previous studies for comparison. TECHNIQUE: Helical axial images of the head were obtained without IV contrast. Automated exposure control was utilized for the study. FINDINGS: No acute intracranial hemorrhage, midline shift or mass effect is present. Basilar cisterns are patent. There are no extra axial collections. Moderate white matter hypodensities suggest small vessel disease. There are no findings to suggest acute dural sinus thrombosis or acute territorial infarct. There is no significant calvarial abnormality. Visualized portions of the sinuses and mastoid air cells are clear. IMPRESSION: No acute intracranial findings. Electronically signed by: Adrian Fox M.D. 06/07/2016 12:41 PM Dictated Date/Time: 06/07/2016 12:39 PM
[2016-06-07] MEDS: METOPROLOL TARTRATE 1 MG/ML VIAL IV PRN (12:58)
--- NOTE | 2016-06-07 13:37 | DIAGNOSTIC IMAGING REPORT ---
RIGHT THIGH CT CT DOSE: HISTORY: right thigh swelling and tenderness Right TECHNIQUE: Multiaxial CT images of the right thigh were performed and reformatted in the sagittal and coronal plane without the use of contrast. COMPARISON: Right thigh MRI 04/14/2016. FINDINGS: No change in size of the 24 x 13 x 10 cm primarily fatty mass within the right thigh musculature. This is located within the vastus intermedius/medialis muscles. There are few small focal areas of soft tissue nodularity seen within the mass. Dominant soft tissue nodule seen along the inferior aspect measures 1.6 cm. This lesions abuts the anterior aspect of the midshaft of the right femur. However, there is no cortical destruction identified. No loculated fluid collections. No fractures within the right femur. IMPRESSION: No change in the 24 x 13 x 10 cm intramuscular fatty mass within the right anterior thigh. This contains a few small focal areas of soft tissue nodularity. Therefore, a liposarcoma remains the diagnosis of exclusion. Surgical consultation is recommended. Electronically signed by: Theodore Honeycutt M.D. 06/07/2016 1:35 PM Dictated Date/Time: 06/07/2016 1:16 PM
--- NOTE | 2016-06-07 14:21 | Infectious Disease Progress Nt ---
Progress Note Date of Service Jun 07, 2016. Subjective Pt evaluation today including: conversation w/ patient, physical exam, chart review, lab review, review of studies, review of inpatient medication list Patient is very lethargic on my exam in room 237. It is noted that he was sent for fistulogram this morning when he was noted to have increased HR and desaturation of his O2 level so the procedure was cancelled. The patient is very lethargic on exam and does not answer many questions. When asked how he is feeling, patient states he is not feeling well at all. Otherwise, he does not elaborate. I reviewed Dr. Hart's most recent notes in which she noted there is no further purulent drainage and is recommending wound care consult. Patient's right foot culture is growing MSSA, Enterococcus resistant to Oxacillin, and Bacteroides. He is currently on IV Zosyn alone. WBC count improved to 12.83 this morning. CXR this morning showed right mid to lower lung zone consolidation likely representing a pneumonia. All Other Systems: Reviewed and Negative Medications Current Inpatient Medications Medications (Trade) Dose Ordered Sig/Eliseo Route Start Time Stop Time Status Last Admin Dose Admin Heparin Sodium (Porcine) (Heparin Sq 5000 Unit/0.5ml) 5,000 unit Q8 SQ 06/02/16 22:00 07/02/16 21:59 06/06/16 21:04 5,000 UNIT Magnesium Hydroxide (Milk Of Magnesia Susp) 30 ml Q6H PRN PO 06/02/16 12:30 07/02/16 12:29 06/06/16 22:32 30 ML Polyethylene (Miralax Powder Packet) 17 gm DAILY PO 06/03/16 08:00 07/03/16 08:59 06/05/16 07:56 17 GM Allopurinol (Zyloprim Tab) 100 mg HS PO 06/02/16 21:00 07/02/16 20:59 06/06/16 20:51 100 MG Amlodipine Besylate (Norvasc Tab) 5 mg QAM PO 06/03/16 08:00 07/03/16 08:59 Future Hold 06/03/16 08:26 5 MG Aspirin (Ecotrin Tab) 81 mg QAM PO 06/03/16 08:00 07/03/16 08:59 06/07/16 08:53 81 MG Atorvastatin Calcium (Lipitor Tab) 20 mg DAILY PO 06/03/16 08:00 07/03/16 08:59 06/07/16 08:53 20 MG Calcium Acetate (Phoslo Cap) 667 mg TIDM PO 06/02/16 17:00 07/02/16 16:59 06/06/16 17:26 667 MG Furosemide (Lasix Tab) 40 mg DAILY PO 06/03/16 08:00 07/03/16 08:59 06/07/16 08:54 40 MG Ipratropium Wenden (Atrovent Hfa Inhaler) 2 puffs QID PRN INH 06/02/16 12:30 07/02/16 12:29 Albuterol/ Ipratropium (Duoneb) 3 ml Q4H PRN INH 06/02/16 12:30 07/02/16 12:29 Meclizine HCl (Antivert Tab) 25 mg Q4H PRN PO 06/02/16 12:30 07/02/16 12:29 Metoprolol Succinate (Toprol Xl Tab) 50 mg QAM PO 06/03/16 08:00 07/03/16 08:59 06/07/16 08:53 50 MG Tamsulosin HCl (Flomax Cap) 0.4 mg HS PO 06/02/16 21:00 07/02/16 20:59 06/06/16 20:49 0.4 MG Cholecalciferol (Vitamin D Tab) 2,000 inter.unit QAM PO 06/03/16 08:00 07/03/16 08:59 06/07/16 08:54 2,000 INTER.UNIT Insulin Detemir (Levemir Flexpen/ FlexTouch) 80 unit HS SC 06/02/16 21:00 07/02/16 20:59 06/06/16 21:03 60 UNIT Ranitidine HCl (zANTac TAB) 300 mg QAM PO 06/03/16 08:00 07/03/16 08:59 06/07/16 08:53 300 MG Oxycodone/ Acetaminophen (Percocet 5-325mg Tab) 1 tab Q4H PRN PO 06/02/16 12:30 06/16/16 12:29 06/06/16 20:55 1 TAB Morphine Sulfate (MoRPHine SULFATE INJ) 2 mg Q2H PRN IV 06/02/16 12:30 06/16/16 12:29 06/06/16 17:31 2 MG Tramadol HCl 50 mg 50 mg Q4H PRN PO 06/02/16 12:30 07/02/16 12:29 06/05/16 20:45 50 MG Piperacillin Sod/ Tazobactam Sod/ Dextrose (Zosyn Iv/D5 100ml) 120 ml @ 30 mls/hr Q12H IV 06/02/16 20:00 07/14/16 19:59 06/07/16 08:52 30 MLS/HR Piperacillin Sod/ Tazobactam Sod (Consult) 1 ea UD PRN N/A 06/02/16 15:00 07/02/16 14:59 Vancomycin HCl (Consult) 1 ea UD PRN N/A 06/02/16 15:00 07/02/16 14:59 Glucose (Glucose 40% Gel) 15-30 GRAMS 15 GRAMS... UD PRN PO 06/02/16 17:00 07/02/16 16:59 Glucose (Glucose Chew Tab) 4-8 Tablets 4 Tabl... UD PRN PO 06/02/16 17:00 07/02/16 16:59 Dextrose (Dextrose 50% 50ML Syringe) 25-50ML OF 50% DW IV FOR... UD PRN IV 06/02/16 17:00 07/02/16 16:59 Glucagon (Glucagon Inj) 1 mg UD PRN SQ 06/02/16 17:00 07/02/16 16:59 Insulin Aspart (novoLOG ASPART) SLIDING SCALE If C... ACHS SC 06/02/16 21:00 07/02/16 20:59 06/06/16 21:04 2 UNITS Acetaminophen (Tylenol Tab) 650 mg Q4H PRN PO 06/03/16 14:30 07/03/16 14:29 06/07/16 10:52 650 MG Al Hydrox/Mg Hydrox/Simethicone (Maalox Max Susp) 15 ml Q4H PRN PO 06/03/16 14:30 07/03/16 14:29 06/06/16 21:05 15 ML Magnesium Hydroxide (Milk Of Magnesia Susp) 30 ml Q12H PRN PO 06/03/16 14:30 07/03/16 14:29 Ondansetron HCl (Zofran Inj) 4 mg Q6H PRN IV 06/03/16 14:30 07/03/16 14:29 06/05/16 15:11 4 MG Oxycodone/ Acetaminophen (Percocet 5-325mg Tab) 2 tab Q4H PRN PO 06/03/16 14:30 06/17/16 14:29 Metoclopramide HCl (Reglan Inj) 5 mg Q6H PRN IV 06/03/16 14:30 07/03/16 14:29 06/05/16 17:22 5 MG Acetaminophen/ Hydrocodone Bitart (Gordon 5/325 Tab) 1 tab Q4H PRN PO 06/03/16 14:30 06/17/16 14:29 Trazodone HCl (Desyrel Tab) 100 mg HS PO 06/05/16 21:00 07/05/16 20:59 06/06/16 20:49 100 MG Chlordiazepoxide (Librium Cap) 10 mg BID PO 06/06/16 09:00 07/06/16 08:59 06/07/16 09:13 10 MG Trazodone HCl 25 mg 25 mg HS PO 06/05/16 21:00 07/05/16 20:59 06/06/16 20:49 25 MG Vancomycin HCl/ Sodium Chloride (Vancomycin Inj/ Nss 250ml) 265 ml @ 125 mls/hr TODAY@1600 IV 06/07/16 16:00 06/07/16 18:08 Metoprolol Tartrate (Lopressor Iv) 2.5 mg Q6H PRN IV 06/07/16 10:30 07/07/16 10:29 06/07/16 12:58 2.5 MG Objective Vital Signs Date Time Temp Pulse Resp B/P Pulse Ox O2 Delivery O2 Flow Rate FiO2 06/07/16 12:58 128 158/72 06/07/16 10:51 142 171/93 06/07/16 09:30 133 24 151/50 91 Nasal Cannula 4.0 06/07/16 08:00 92 Room Air 06/07/16 07:59 36.8 80 20 186/85 91 Room Air 06/07/16 06:23 36.8 72 20 137/66 90 Room Air 2.0 06/07/16 04:00 Room Air 06/07/16 00:00 Room Air 06/06/16 23:47 36.8 72 20 137/66 90 Room Air 06/06/16 20:00 94 Room Air 2.0 06/06/16 19:25 36.7 85 20 158/77 94 Room Air 06/06/16 16:00 Room Air 06/06/16 15:34 36.5 64 20 141/68 93 Room Air Physical Exam General Appearance: + mild distress (and lethargic), + obese Eyes: sclerae normal ENT: hearing grossly normal Neck: supple Respiratory/Chest: no respiratory distress, no accessory muscle use, + pertinent finding (Coarse breath sounds througout right side) Cardiovascular: + tachycardia Abdomen: + distended Extremities: + pertinent finding (dressing on right foot. 1+ pitting edema right lower extremity) Neurologic/Psychiatric: + disoriented, + pertinent finding (lethargic) Skin: warm/dry, no rash Laboratory Results CHEST ONE VIEW PORTABLE HISTORY: hypoxia COMPARISON: Chest 06/02/2016. FINDINGS: There is a new right mid to lower lung zone consolidative airspace opacity. This is consistent with a pneumonia. The heart is mildly enlarged. Mild congestive change persists. No pneumothorax. Suspect a trace right pleural effusion. IMPRESSION: A new right mid to lower lung zone consolidative airspace opacity. This likely represents a pneumonia. Recommend follow-up to ensure resolution. Item Value Date Time MRSA DNA Surveillance Screen Received 06/07/16 1300 Nasal Pending Gram Stain - Final Resulted 06/03/16 1359 Abscess Toe Right 5 Urine Culture - Final Complete 06/04/16 1945 Urine , Clean Catch NO GROWTH - LESS THAN 1,000 COLONIES/ML Gram Stain - Final Resulted 06/03/16 1349 Abscess Foot Right Blood Culture - Preliminary Resulted 06/02/16 1110 Blood NO GROWTH TO DATE. Blood Culture - Preliminary Resulted 06/02/16 1050 Blood NO GROWTH TO DATE. Last 24 Hours Test 06/06/16 16:03 06/06/16 20:20 06/07/16 06:20 06/07/16 06:33 Bedside Glucose 194 mg/dl 195 mg/dl 154 mg/dl Creatinine 11.00 mg/dl Est Creatinine Clear Calc Drug Dose 7.8 ml/min Estimated GFR () 4.7 Estimated GFR (Non- 4.1 Random Vancomycin Level 15.0 mcg/ml Test 06/07/16 10:55 06/07/16 11:07 06/07/16 12:30 06/07/16 13:33 Arterial Blood pH 7.47 Arterial Blood Partial Pressure CO2 37 mmHg Arterial Blood Partial Pressure O2 67 mm/Hg Arterial Blood HCO3 26 mmol/L Arterial Blood Oxygen Saturation 92.0 % Arterial Blood Base Excess 2.5 mEq/L Arterial Blood Gas Delivery 5 LITERS Edu Test POSITIVE Bedside Glucose 133 mg/dl Digoxin Level 0.9 ng/ml Test 06/07/16 14:00 Assessment and Plan Patient with right 5th distal metatarsal abscess and osteomyelitis with chronic overlying ulceration and now probable right sided pneumonia. Wound culture growing MSSA, Enterococcus, and Bacteroides. He is currently only on Zosyn. Will add IV Vancomycin again due to Enterococcus which is resistant to Ampicillin. Patient cannot take Zyvox due to concomitant use of Tradazone. Will also continue IV Zosyn for now for concerns of right sided pneumonia. Will also add azithromycin for now due to concern of atypical pneumonia (large consolidation despite abx since admission). Recommend repeat CXR to resolution. We will continue to follow along. PROVIDER ADDENDUM Pt. reviewed with Ms. Linder. Agree with above assessment.
[2016-06-07 14:42] LABS: PARTIAL THROMBOPLASTIN RATIO 1.1
[2016-06-07 15:19] LABS: BUN/CREATININE RATIO 6.9 (10-20); CALCIUM 8.5 mg/dl (8.5-10.1); MAGNESIUM 2.9 mg/dl (1.8-2.4); PHOSPHORUS 7.3 mg/dl (2.5-4.9)
[2016-06-07] MEDS ORDERED: VANCOMYCIN INJ 750 MG in SODIUM CHLORIDE 0.9% 250ML 250 ML IV SCH (16:00)
--- NOTE | 2016-06-07 16:29 | Pulmonary Consultation ---
History General Date of Service: Jun 07, 2016. Stated Complaint: Unsp Open Wound, Right Foot, Sequela HPI The patient is a 75 year old male who presents to [facility] with complaints of Unsp Open Wound, Right Foot, Sequela. The patient's primary care provider is Obi Mendez M.D.. 75y/o male admitted 06/02/2016 for acute on chronic worsening of his RLE cellulitis possible osteomyelitis associated with plantar surface of the 5th toe. He has a PmHx significant for ESRD (HD:M,W,F) MUGUS and RVD. He underwent right foot I&D, debridement with 5th metatarsal resection on . 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 I should note the patient is a very poor historian. Currently he notes mild dyspnea with exertion but denies: fever, chills, pleurisy, cardiac chest pain or productive cough. Radiology: o 12/24/2014 CT thorax WNL o CXR 06/02/2016 Hilar fullness o CXR 06/07/2016 RLL diffuse infiltrate o CTA thorax No PE RUL posterior-apical infiltrate RUL posterior infiltrate RB5 (lateral RML) infiltrate RB6 (superior sub segment RLL) infiltrate Duplex AVF 06/03/2016 o Significant stenosis o Small non-occlusive thrombus at the level of the antecubital fossa Bilateral lower Ext DVT Study 06/02/2016 o Chronic DVT left tibial vein Previous Work-up: PFT (04/02/15) FEV1/FVC: 83 FEV1: 67% FVC: 64% No significant change noted s/p broncho-dilators T% RV: 61% VC: 64% DLCO: 57% DL/VA: 115% EMG & NCV (08/25/2015) Polyneuropathy of sensory and motor fibers Historian: patient, EMS Review of Systems Constitutional: reports: weakness Eyes: reports: no symptoms ENT: reports: no symptoms Cardiovascular: reports: no symptoms Respiratory: reports: MARTINEZ Gastrointestinal: reports: no symptoms Genitourinary - Male: reports: no symptoms Musculoskeletal: reports: myalgias Integumentary: reports: no symptoms Neurologic: reports: paresthesia Psychiatric: reports: no symptoms Endocrine: no symptoms Hematologic / Lymphatic: no symptoms Allergic / Immunologic: no symptoms Past Medical History Past Medical History: 1. Abnormal EKG 2. Mild MilMild RVD with an FVC: 64% 3. Abnormal finding on lung imaging 4. Acute bronchitis 5. Acute sinusitis 6. Anal lesion 7. Anemia due to chronic kidney disease 8. Chronic RLE infection x 6 months a. Enterococcus Faecalis b. MSSA c. E. Coli 9. Anemia in ESRD (end-stage renal disease) stage V 10. Aortic sclerosis 11. Benign neoplasm of colon, unspecified 12. Benign prostatic hypertrophy with urinary obstruction 13. Carotid artery stenosis, asymptomatic 14. Cellulitis of foot, left 15. Depression 16. Diabetes mellitus type 2 with complications 17. Diabetic neuropathy 18. Diverticulosis of colon 19. Dyslipidemia 20. Dysphagia 21. Edema 22. Fistula 23. Gout 24. Hypertension 25. Internal hemorrhoids 26. Laryngopharyngeal reflux disease 27. Lumbar disc disease 28. Lymphadenopathy 29. Mass of thigh, right 30. Monoclonal gammopathy of undetermined significance 31. Numbness of left hand 32. Osteoarthritis of knee 33. Proteinuria 34. C. Difficile colitis Past Surgical History: 1. Cholecystectomy 2. Knee Surgery Left 3. Rotator Cuff Repair 4. Surgery Vas Deferens Vasectomy 5. Tonsillectomy 6. Left radiocephalic AVF Family History FH: diabetes mellitus AUNT FH: stroke GRANDMOTHER 1. dementia 2. Cirrhosis, alcoholic 3. cerebrovascular accident 4. malignant neoplasm 5. diabetes mellitus Social History Hx Tobacco Use In Past Year?: No (quit in 2000 3 PPD X 60 years) Smoking Status: Former Smoker Marital status: Housing status: lives with family Occupational Status: retired Immunizations History of Influenza Vaccine: Yes History of Tetanus Vaccine?: Unknown History of Pneumococcal: Yes Pneumococcal Date: Dec 22, 2007 History of Hepatitis B Vaccine: Unknown History of MDRO History of MDRO: No Allergies Coded Allergies: No Known Allergies (Verified , 06/02/16) Current Medications Reported Home Medications Medications Dose Route/Sig Max Daily Dose Days Date Category Dose Instructions Trazodone HCl 150 Mg Tab 1 Tab PO DAILY PRN 06/02/16 Reported Tamsulosin HCl 0.4 Mg Cap 1 Cap PO HS 06/02/16 Reported Atorvastatin Calcium (Atorvastatin) 20 Mg Tab 1 Tab PO DAILY 06/02/16 Reported Meclizine HCl 25 Mg Tab 1 Tab PO Q4H PRN 06/02/16 Reported Furosemide 40 Mg Tab 1 Tab PO DAILY 06/02/16 Reported Phoslo 667 Mg (Calcium Acetate (Phosphate Bin) 667 Mg Cap 1 Cap PO TID 06/02/16 Reported Zantac (Ranitidine Hcl) 300 Mg Tab 1 Tab PO DAILY 06/02/16 Reported Novolog Penfill (Insulin Aspart) 100 Unit/Ml Inj 60 Units SQ BID 06/02/16 Reported SLIDING SCALE Levemir (Insulin Detemir) 100 Units/Ml Inj 80 Units SC HS 06/02/16 Reported Vitamin D3 (Cholecalciferol) 2,000 Unit Cap 1 Cap PO DAILY 06/02/16 Reported Zyloprim (Allopurinol) 100 Mg Tab 1 Tab PO HS 30 12/28/15 Reported Sodium Bicarbonate 650 Mg Tab 1 Tab PO BID 09/30/15 Reported Toprol-Xl (Metoprolol Succinate) 50 Mg Tabcr 50 Mg PO QAM 09/30/15 Reported Duoneb (Ipratropium-Albuterol) 3 Ml Nebu 1 Treatment INH Q4H PRN 09/30/15 Reported Atrovent Hfa (Ipratropium Acton) 200 Puffs/3400 Mcg Aers 2 Puffs INH QID PRN 09/30/15 Reported Norvasc (Amlodipine Besylate) 5 Mg Tab 5 Mg PO QAM 03/20/15 Reported Aspir-81 (Aspirin) 81 Mg Tab 1 Tab PO QAM 30 08/21/14 Reported Physical Physical Exam Vital Signs: Date Time Temp Pulse Resp B/P Pulse Ox O2 Delivery O2 Flow Rate FiO2 06/07/16 16:00 119 150/97 06/07/16 15:45 128 132/62 06/07/16 15:30 110 127/62 06/07/16 15:15 110 140/73 06/07/16 15:00 91 134/61 06/07/16 14:45 93 138/52 06/07/16 14:30 89 117/72 06/07/16 14:24 104 136/80 06/07/16 14:00 36.8 104 24 117/72 93 Nasal Cannula 5.0 06/07/16 12:58 128 158/72 06/07/16 10:51 142 171/93 06/07/16 09:30 133 24 151/50 91 Nasal Cannula 4.0 06/07/16 08:00 92 Room Air 06/07/16 07:59 36.8 80 20 186/85 91 Room Air 06/07/16 06:23 36.8 72 20 137/66 90 Room Air 2.0 06/07/16 04:00 Room Air 06/07/16 00:00 Room Air 06/06/16 23:47 36.8 72 20 137/66 90 Room Air 06/06/16 20:00 94 Room Air 2.0 06/06/16 19:25 36.7 85 20 158/77 94 Room Air General Appearance: WELL-APPEARING, NO APPARENT DISTRESS Head: NORMOCEPHALIC, ATRAUMATIC Eyes: PERRLA, NO DISCHARGE, EOMI, SCLERAE NORMAL, CONJUNCTIVAE NORMAL ENT: NORMAL EAR EXAM, NORMAL NASAL EXAM, NORMAL MOUTH EXAM, NORMAL THROAT EXAM , NORMAL DENTAL EXAM Neck: NORMAL RANGE OF MOTION, NO TENDERNESS, TRACHEA MIDLINE Respiratory: NO RESPIRATORY DISTRESS, rales, rhonchi Cardiovasular: irregular rate, abnormal rhythm Abdomen: NON TENDER, NORMAL BOWEL SOUNDS, NO REBOUND, NO MASSES, NO GUARDING Genitourinary - Male: EXTERNAL GENITALIA NORMAL Back: NORMAL INSPECTION, NO MIDLINE TENDERNESS, NO CVA TENDERNESS, NO PARAVERTEBRAL TTP Upper Extremities: NO EDEMA Lower Extremities: deformity (anterior [id number] subcutaneous fluctuant mass) Edema: RLE (1+) Pulses: carotid (R) (1+), carotid (L) (1+), posterior tibial (R), posterior tibial (L) (0) Neuro: ALERT, ORIENTED x 3 Reflexes: biceps (R) (1+), bicpes (L) (1+) Babinski Testing: right, left (downgoing) Psychiatric: NORMAL AFFECT Diagnostics Labs Results Past 24 Hours Test 06/06/16 20:20 06/07/16 06:20 06/07/16 06:33 06/07/16 10:55 Range/Units Bedside Glucose 195 154 70-99 mg/dl Creatinine 11.00 0.60-1.40 mg/dl Est Creatinine Clear Calc Drug Dose 7.8 ml/min Estimated GFR () 4.7 Estimated GFR (Non- 4.1 Random Vancomycin Level 15.0 mcg/ml Arterial Blood pH 7.47 7.35-7.45 Arterial Blood Partial Pressure CO2 37 35-46 mmHg Arterial Blood Partial Pressure O2 67 80-95 mm/Hg Arterial Blood HCO3 26 19-24 mmol/L Arterial Blood Oxygen Saturation 92.0 90-95 % Arterial Blood Base Excess 2.5 -9-1.8 mEq/L Arterial Blood Gas Delivery 5 LITERS Edu Test POSITIVE POS Test 06/07/16 11:07 06/07/16 12:30 06/07/16 14:00 Range/Units Bedside Glucose 133 70-99 mg/dl Digoxin Level 0.9 0.8-2.0 ng/ml Prothrombin Time 11.0 9.0-12.0 SECONDS Prothromb Time International Ratio 1.0 0.9-1.1 Activated Partial Thromboplast Time 27.6 21.0-31.0 SECONDS Partial Thromboplastin Ratio 1.1 Sodium Level 127 136-145 mmol/L Potassium Level 5.0 3.5-5.1 mmol/L Chloride Level 87 98-107 mmol/L Carbon Dioxide Level 26 21-32 mmol/L Anion Gap 14.0 3-11 mmol/L Blood Urea Nitrogen 76 7-18 mg/dl Creatinine 11.00 0.60-1.40 mg/dl Est Creatinine Clear Calc Drug Dose 7.8 ml/min Estimated GFR () 4.7 Estimated GFR (Non- 4.1 BUN/Creatinine Ratio 6.9 10-20 Random Glucose 132 70-99 mg/dl Lactic Acid Level 1.0 0.4-2.0 mmol/L Calcium Level 8.5 8.5-10.1 mg/dl Phosphorus Level 7.3 2.5-4.9 mg/dl Magnesium Level 2.9 1.8-2.4 mg/dl Total Bilirubin 0.6 0.2-1 mg/dl Direct Bilirubin 0.3 0-0.2 mg/dl Aspartate Amino Transf (AST/SGOT) 52 15-37 U/L Alanine Aminotransferase (ALT/SGPT) 49 12-78 U/L Alkaline Phosphatase 321 45-117 U/L Total Protein 6.8 6.4-8.2 gm/dl Albumin 2.0 3.4-5.0 gm/dl Procalcitonin 24.24 0-0.5 ng/ml Random Cortisol 33.91 mcg/dl Microbiology Results 06/07/16 MRSA DNA Surveillance Screen, Received Pending Diagnostic Radiology o 12/24/2014 CT thorax WNL o CXR 06/02/2016 Hilar fullness o CXR 06/07/2016 RLL diffuse infiltrate o CTA thorax No PE RUL posterior-apical infiltrate RUL posterior infiltrate RB5 (lateral RML) infiltrate RB6 (superior sub segment RLL) infiltrate EKG A-fib with sinus rate 100 Impression Assessment and Plan 75y/o male admitted with osteomyelitis of the right 5th toe complicated with acute dyspnea/SOB: 1) Dyspnea/Hypoxemia: Most likely from a combination of HCAP, acute on chronic A-fib with RVR and possible aspiration event. At this time the patient appears safe but suggest we obtain speech/video swallow as I don't feel this patient will perform a barium swallow well at this time. I have spoken to the ICU team about his anti-biotics, rate control and volume overload which are being well controlled by cardiology, nephrology and ID. I should note the thoracic US shows bilateral apical b-lines noting volume overload. 2) COPD: This patient's PFTs performed 04/02/15 don't show COPD but do show RVD possible from obesity or possible even chronic aspiration. Once again will place a speech pathology evaluation. 3) Aspiration: Patient with CT consistent with aspiration event and history of dysphagia. 4) DVT: patient's recent vascular exams show small non-occlusive thrombus at the level of the antecubital fossa and chronic DVT left tibial vein which are both considered distal veins and don't require anti-coagulation.
--- NOTE | 2016-06-07 16:46 | CARDIOLOGY CONSULTATION ---
DATE OF CONSULTATION: 06/07/2016 REFERRING PHYSICIAN: Jones Dang DO CHIEF COMPLAINT: Tachycardia. HISTORY OF PRESENT ILLNESS: Mr. Bre Carmichael is a 75-year-old gentleman without a known history of cardiac disease, who presented on the 02 of June with a foot infection. The patient was noted to have a chronic ulcer at that site and was discovered to have cellulitis involving an abscess. He underwent surgical debridement and during his hospitalization here, was also noted to have high velocities on doppler in his AV fistula suggestive of a stenosis. This morning, he was scheduled for a fistulogram, but was noted to be markedly tachycardic. An EKG at that time suggested an atrial flutter with rapid ventricular response. The patient's procedure was canceled and then he was sent to the intensive care unit for additional therapy and monitoring. At the time of interview, the patient appeared somewhat confused. He is not verbalizing any specific complaints and has some difficulty answering questions. He is certainly not aware of any palpitations or tachycardia. He does report chest pain such as "being kicked like a mule," but it is unclear whether he experienced it today or remotely or truly ever as he could not really define any timeframe for the symptoms. He states that he is short of breath, but does not appear tachypneic or dyspneic in any away. He denies pain currently. He does not appear to have good insight into the reason for his current hospitalization. PAST MEDICAL HISTORY: Significant for, 1. End-stage renal disease, currently on hemodialysis. 2. Colon cancer. 3. Peripheral vascular disease, involving the carotid artery stenosis. 4. Chronic obstructive pulmonary disease. 5. Diabetes mellitus type 2. 6. Depression. 7. History of diabetic foot ulcers. 8. Hyperlipidemia. 9. Gout. 10. Hypertension. 11. MGUS. 12. Cellulitis. PAST SURGICAL HISTORY: Includes cholecystectomy, left knee surgery, rotator cuff repair, vasectomy and tonsillectomy. FAMILY HISTORY: Significant for diabetes, but no premature coronary artery disease. SOCIAL HISTORY: The patient has a remote history of tobacco abuse, currently nonsmoker. Denies significant alcohol use. OUTPATIENT MEDICAL REGIMEN: Included allopurinol, amlodipine, aspirin, Atrovent, insulin, furosemide, lisinopril, metoprolol, omeprazole, Proventil, ranitidine, tamsulosin and trazodone. MEDICAL ALLERGIES: No known medical allergies. REVIEW OF SYSTEMS: Review of systems could not be performed due to change in the patient's mental status and unreliable nature of his history. PHYSICAL EXAMINATION: GENERAL: The patient did not appear to be in any acute distress. He is a pleasant individual, who is not a notably oriented, but was alert and attempted to answer questions. VITAL SIGNS: Currently include blood pressure of 140/73 with a pulse of 110. HEENT: His sclerae are anicteric. His pupils were somewhat constricted and pinpoint. Extraocular movements appear to be intact. NECK: Palpation of submandibular region did not reveal any significant lymphadenopathy. The carotids are palpable bilaterally. I do not appreciate any bruits on auscultation. The thyroid was not enlarged. I did not appreciate any jugular venous distention, although the neck tissues were somewhat redundant. LUNGS: Auscultation of his lungs revealed the apices to be clear, perhaps some diminished breath sounds in the right base. CARDIAC: Revealed him to be in an irregular rhythm without murmur. ABDOMEN: Soft and nontender. EXTREMITIES: Left forearm had a palpable thrill and a functioning AV fistula. Right radial pulse was palpable. There is no evidence of cyanosis or clubbing. Evaluation of his lower extremities revealed a firm mass in the right upper thigh with some mild edema in this limb as well. I do not appreciate any rashes on examination today. LABORATORY STUDIES: Today included a sodium 127, potassium of 5, BUN was 76, and creatinine was 11. Yesterday, CBC demonstrated white cell count of 12, hemoglobin of 8.9 and a platelet count of 364. The patient underwent multiple imaging studies since admission including a chest CT yesterday demonstrating evidence of right lung pneumonia with emphysematous changes as well. 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 I reviewed the patient's EKGs and telemetry since admission revealing atrial flutter with a variable ventricular response. Echocardiogram is pending. ASSESSMENT AND PLAN: 1. Atrial flutter. This is of unclear duration. The first EKG obtained at the time of admission was initially read as sinus tachycardia and could have been attributed to such, but in light of his subsequent EKGs, I believe this was in fact atrial flutter at the time of admission. Last heart rate recorded as an outpatient was April 14 and at that time, was in the 70s. It is very likely that the patient transitioned into an atrial flutter due to the presence of his underlying lung disease and possibly development of a pneumonia. AFL is generally thought to be a right-sided cardiac process and related to significant pulmonary disease. There is no evidence of pulmonary embolus on his recent CT examination. I think given the acute nature of his current illness and other comorbidities during this hospitalization, we would not pursue cardioversion immediately. He appears to be hemodynamically stable and only suffers from occasional high ventricular rates. He is on Toprol-XL 50 mg as an outpatient and generally has reasonable rate control. This morning, he likely was under increased stress, possibly pain or anxiety related to his procedure, generating higher heart rates. At this point, it would seem reasonable to continue his metoprolol, perhaps at a higher dose of 75 mg daily, supplemented by oral doses as needed to control his heart rate. I am waiting for the results of an echocardiogram to see if employment of calcium channel blockers would be enriquez if necessary. Certainly a diltiazem infusion could be used in the acute setting for rapid control of his rates. At this point, it is very likely he can be adequately controlled with beta blockade exclusively. senior living therapy for atrial flutter could include catheter based therapy such as ablation or possibly cardioversion. I would reserve either of these measures for a later date when he is medically stable and has been on appropriate anticoagulation. Given his other comorbidities, this could be deferred indefinitely with adequate rate control. Regarding anticoagulation, he certainly has enough risk factors for a high CHADS2-VASc score and should be on systemic anticoagulation. It is unclear whether he will require additional surgical procedures in the near future; however, given his renal disease, anticoagulation with warfarin would seem to be the best choice and could be started immediately given the time it takes to reach the therapeutic level. FINAL RECOMMENDATIONS: 1. Continuation of metoprolol at a higher dose, generally 75 mg daily. 2. P.r.n. doses of oral metoprolol for higher heart rates. 3. Consider cardioversion or possibly ablation for persistent atrial flutter in an outpatient setting. 4. Cardioversion for hemodynamic instability. 5. Recommend systemic anticoagulation with warfarin when deemed appropriate by the primary service. CAMERON
[2016-06-07] MEDS: TAMSULOSIN HCL 0.4 MG CAP PO SCH (19:55)
[2016-06-07] MEDS: ALLOPURINOL 100 MG TAB PO SCH (19:55)
[2016-06-07] MEDS: TRAZODONE HCL 100 MG TAB PO SCH (19:55)
[2016-06-07] MEDS: TRAZODONE HCL 50 MG TAB PO SCH (19:57)
[2016-06-07] MEDS: INSULIN DETEMIR FLEXPEN/FLEX TOUCH 100 UNITS/ML 3ML SC SCH (21:00)
[2016-06-07] MEDS ORDERED: INSULIN DETEMIR FLEXPEN/FLEX TOUCH 100 UNITS/ML 3ML SC ONE (21:30)
[2016-06-08] VITALS (12 sets, daily range): BP systolic 126–198; BP diastolic 60–94; PULSE 69–94; TEMP 36.4–36.8; O2SAT 92–95
--- NOTE | 2016-06-08 00:21 | Progress Note ---
Progress Note Date of Service Jun 08, 2016. Progress Note Notified by nursing that patients evening blood sugar was 163. He has Levemir 80 Units HS scheduled. Patient refusing full dose stating "I know its going to make me feel bad". He stated he would take half his Levemir dose, 40 units. I instructed nursing to give 40 units and check POC BSG at midnight and provide sliding-scale cover as necessary. Phoned by nursing after midnight to notify me that repeat BSG was 240. I confirmed to administer sliding-scale coverage and re-check BSG with morning labs.
[2016-06-08] MEDS: INSULIN ASPART 100 UNITS/ML 3 ML PEN SC SCH ×5 (00:23→22:42)
[2016-06-08] MEDS: OXYCODONE/ACETAMINOPHEN 5-325 TAB PO PRN ×2 (04:25→23:00)
[2016-06-08 05:13] LABS: BASO % 0.3 %; BASO ABS # 0.05 K/uL (0-0.2); EOS % 3.9 %; HEMATOCRIT 25.2 % (42-52); IG% 0.7 %; LYMPH % 15.5 %; LYMPH ABS # 2.29 K/uL (1.2-3.4); MEAN CORPUSCULAR HEMOGLOBIN 30.3 pg (25-34); MEAN CORPUSCULAR HGB CONC 32.9 g/dl (32-36); MEAN PLATELET VOLUME 8.1 fL (7.4-10.4); MONO % 9.3 %; NEUT % 70.3 %; PLATELET COUNT 412 K/uL (130-400); RED BLOOD COUNT 2.74 M/uL (4.7-6.1); WHITE BLOOD COUNT 14.77 K/uL (4.8-10.8)
[2016-06-08] MEDS: HEPARIN SOD 5000 UNIT/0.5 ML CARP SQ SCH ×2 (05:25→14:00)
[2016-06-08 05:54] LABS: ANISOCYTOSIS PRESENT; BUN/CREATININE RATIO 5.5 (10-20); CALCIUM 8.5 mg/dl (8.5-10.1); COMPLETE YES; CREATININE 6.3 mg/dl (0.60-1.40); POTASSIUM 4.2 mmol/L (3.5-5.1)
[2016-06-08] MEDS: PIPERACILL/TAZOBAC IV 4.5 GM in DEXTROSE 5% 100ML 100 ML IV SCH ×2 (07:31→19:33)
[2016-06-08] MEDS: ASPIRIN 81 MG ECTAB PO SCH (07:31)
[2016-06-08] MEDS: CALCIUM ACETATE 667MG GELCAP PO SCH ×3 (07:31→16:46)
[2016-06-08] MEDS: METOPROLOL SUCC 25MG EXT REL TAB PO SCH (07:32)
[2016-06-08] MEDS: POLYETHYLENE (MIRALAX) 17 GM PACK PO SCH (07:32)
[2016-06-08] MEDS: ATORVASTATIN 20 MG TAB PO SCH (07:33)
[2016-06-08] MEDS: FUROSEMIDE 40 MG TAB PO SCH (07:33)
[2016-06-08] MEDS: CHOLECALCIFEROL 1000 INTER.UNIT TAB PO SCH (07:33)
[2016-06-08] MEDS: RANITIDINE HCL 150 MG TAB PO SCH (07:34)
[2016-06-08] MEDS: CHLORDIAZEPOXIDE 10 MG CAP PO SCH ×2 (07:35→22:41)
--- NOTE | 2016-06-08 08:43 | Pharmacy Progress Note ---
Pharmacy Antibiotic Prog Note Date of Service Jun 08, 2016. Subjective The patient is currently receiving vancomycin after dialysis. The patient is currently on day # 7 of IV therapy. Objective Height (Feet): 6 Height (Inches): 1.00 Weight (Kilograms): 111.300 Levels: Item Value Date Time Random Vancomycin Level 15.0 mcg/ml 06/07/16 0633 Random Vancomycin Level 19.3 mcg/ml 06/08/16 0450 Lab Results (24hrs): Laboratory Tests Test 06/07/16 14:00 06/08/16 04:55 BUN/Creatinine Ratio 6.9 5.5 Blood Urea Nitrogen 76 mg/dl 35 mg/dl Creatinine 11.00 mg/dl 6.30 mg/dl White Blood Count 14.77 K/uL Red Blood Count 2.74 M/uL Hemoglobin 8.3 g/dL Hematocrit 25.2 % Mean Corpuscular Volume 92.0 fL Mean Corpuscular Hemoglobin 30.3 pg Mean Corpuscular Hemoglobin Concent 32.9 g/dl Platelet Count 412 K/uL Mean Platelet Volume 8.1 fL Neutrophils (%) (Auto) 70.3 % Lymphocytes (%) (Auto) 15.5 % Monocytes (%) (Auto) 9.3 % Eosinophils (%) (Auto) 3.9 % Basophils (%) (Auto) 0.3 % Neutrophils # (Auto) 10.37 K/uL Lymphocytes # (Auto) 2.29 K/uL Monocytes # (Auto) 1.37 K/uL Eosinophils # (Auto) 0.58 K/uL Basophils # (Auto) 0.05 K/uL Micro Results: RUN DATE: 06/07/16 [facility] LAB PAGE 1 RUN TIME: 1410 Specimen Inquiry PATIENT: GUILLERMO MARTINEZ LOC: [facility] U # : [id number] AGE/SX: 75/M ROOM: E104 REG : 06/02/[address]: Kentrell Suárez M : 1940 BED: 1 DIS : STATUS: ADM IN TLOC: SPEC #: [id number] PRUDENCIO: 06/03/16 STATUS: RES REQ #: [id number] RECD: 06/03/[address]: Kentrell Suárez M.D. SOURCE: ABSCESS ENTR: 06/03/[address] [facility] [address]: Obi Mendez M.D. [facility]: Eleuterio Schneider D.O. Rowe-Bauer, Christina L., Zion Matson M.D. Thomas, Peter W., D.O. ORDERED: AER/RAO CULTSMR Procedure Result Verified Site GRAM STAIN Final 06/04/16-94 RESULT MODERATE WBCs SEEN MODERATE GRAM POSITIVE COCCI Phoned results to MINNIE DOSHI on 06/03/16 at 1543 by Kathia Holliday. Results were verbalized back to YESICA. OR AER/RAO CULT Preliminary 06/07/16-1410 Organism 1 STAPHYLOCOCCUS AUREUS QUANITY MODERATE SENS SENSITIVITY TO FOLLOW +MIXWOUND PLUS LOW COUNTS OF PROBABLE SKIN LUCAS Organism 2 ENTEROCOCCUS FAECIUM QUANITY FEW SENS SENSITIVITY TO FOLLOW Organism 3 BACTEROIDES THETAIOTAOMICRON QUANITY FEW SENS NO SENSITIVITY TO FOLLOW STAPH AUR ET FAECIUM M.I.C. RX M.I.C. RX --------- ------ --------- ------ TRIMET/SULFA <=0.5/9.5 S AMPICILLIN >8 R * OXACILLIN 0.5 S GENT SYNERGY >500 R VANCOMYCIN 1 S PENICILLIN >8 R ERYTHROMYCIN >4 R TETRACYCLINE <=4 S CLINDAMYCIN <=0.5 S DAPTOMYCIN <=0.5 S 4 S STREP SYNERGY <=1000 S ENTEROCOCCUS FAECIUM: POSITIVE COMBO 33 Streptomycin Synergy Screen S Assessment & Plan ASSESSMENT * Mr Martinez was admitted on 06/02/2016 with a diabetic foot infection. He has subsquently undergone an amputation on 06/03/2016. * He remains febrile currently with a slightly elevated white count (lower than on admission however). There is concern for an underlying pneumonia. * From a renal standpoint, the patient is remaining stable. These drug level are: Therapeutic Continue to dose after hemodialysis. Plan on Vancomycin 750 mg IV x 1 tomorrow after dialysis. Goal peak level estimate: between 35 - 40 mcg/mL. Goal trough level estimate: between 15 - 20 mcg/mL (diagnosis: osteomyelitis). Random level has been ordered for: . Pharmacy will continue to follow and will adjust dose/frequency as necessary. Thank you
--- NOTE | 2016-06-08 10:48 | Infectious Disease Progress Nt ---
Progress Note Date of Service Jun 08, 2016. Subjective Pt evaluation today including: conversation w/ patient, physical exam, chart review, lab review, review of studies, review of inpatient medication list Patient transferred to ICU yesterday for concerns of increasing HR and decreasing O2 saturation. His WBC count this morning is 14.77. He is noted to be in Aflutter on the monitor. CTA of the chest yesterday showed no PE, extensive right lung consolidation consistent with pneumonia and mild to moderate emphysema. Abscess culture still growing MSSA, Enterococcus Faecium, and Bacteroides. He states that his breathing is labored today, and he continues to have diarrhea as well. He is also experiencing discomfort in his right leg/foot. All Other Systems: Reviewed and Negative Medications Current Inpatient Medications Medications (Trade) Dose Ordered Sig/Eliseo Route Start Time Stop Time Status Last Admin Dose Admin Heparin Sodium (Porcine) (Heparin Sq 5000 Unit/0.5ml) 5,000 unit Q8 SQ 06/02/16 22:00 07/02/16 21:59 06/07/16 21:29 5,000 UNIT Polyethylene (Miralax Powder Packet) 17 gm DAILY PO 06/03/16 08:00 07/03/16 08:59 06/08/16 07:32 17 GM Allopurinol (Zyloprim Tab) 100 mg HS PO 06/02/16 21:00 07/02/16 20:59 06/07/16 19:55 100 MG Amlodipine Besylate (Norvasc Tab) 5 mg QAM PO 06/03/16 08:00 07/03/16 08:59 Future Hold 06/03/16 08:26 5 MG Aspirin (Ecotrin Tab) 81 mg QAM PO 06/03/16 08:00 07/03/16 08:59 06/08/16 07:31 81 MG Atorvastatin Calcium (Lipitor Tab) 20 mg DAILY PO 06/03/16 08:00 07/03/16 08:59 06/08/16 07:33 20 MG Calcium Acetate (Phoslo Cap) 667 mg TIDM PO 06/02/16 17:00 07/02/16 16:59 06/08/16 07:31 667 MG Furosemide (Lasix Tab) 40 mg DAILY PO 06/03/16 08:00 07/03/16 08:59 06/08/16 07:33 40 MG Ipratropium [place] (Atrovent Hfa Inhaler) 2 puffs QID PRN INH 06/02/16 12:30 07/02/16 12:29 Albuterol/ Ipratropium (Duoneb) 3 ml Q4H PRN INH 06/02/16 12:30 07/02/16 12:29 Meclizine HCl (Antivert Tab) 25 mg Q4H PRN PO 06/02/16 12:30 07/02/16 12:29 Tamsulosin HCl (Flomax Cap) 0.4 mg HS PO 06/02/16 21:00 07/02/16 20:59 06/07/16 19:55 0.4 MG Cholecalciferol (Vitamin D Tab) 2,000 inter.unit QAM PO 06/03/16 08:00 07/03/16 08:59 06/08/16 07:33 2,000 INTER.UNIT Insulin Detemir (Levemir Flexpen/ FlexTouch) 80 unit HS SC 06/02/16 21:00 07/02/16 20:59 06/06/16 21:03 60 UNIT Ranitidine HCl (zANTac TAB) 300 mg QAM PO 06/03/16 08:00 07/03/16 08:59 06/08/16 07:34 300 MG Oxycodone/ Acetaminophen 1 tab 1 tab Q4H PRN PO 06/02/16 12:30 06/16/16 12:29 06/08/16 04:25 1 TAB Piperacillin Sod/ Tazobactam Sod/ Dextrose (Zosyn Iv/D5 100ml) 120 ml @ 30 mls/hr Q12H IV 06/02/16 20:00 07/14/16 19:59 06/08/16 07:31 30 MLS/HR Piperacillin Sod/ Tazobactam Sod (Consult) 1 ea UD PRN N/A 06/02/16 15:00 07/02/16 14:59 Vancomycin HCl (Consult) 1 ea UD PRN N/A 06/02/16 15:00 07/02/16 14:59 Glucose (Glucose 40% Gel) 15-30 GRAMS 15 GRAMS... UD PRN PO 06/02/16 17:00 07/02/16 16:59 Glucose (Glucose Chew Tab) 4-8 Tablets 4 Tabl... UD PRN PO 06/02/16 17:00 07/02/16 16:59 Dextrose (Dextrose 50% 50ML Syringe) 25-50ML OF 50% DW IV FOR... UD PRN IV 06/02/16 17:00 07/02/16 16:59 Glucagon (Glucagon Inj) 1 mg UD PRN SQ 06/02/16 17:00 07/02/16 16:59 Insulin Aspart (novoLOG ASPART) SLIDING SCALE If C... ACHS SC 06/02/16 21:00 07/02/16 20:59 06/08/16 07:54 5 UNITS Acetaminophen (Tylenol Tab) 650 mg Q4H PRN PO 06/03/16 14:30 07/03/16 14:29 06/07/16 10:52 650 MG Al Hydrox/Mg Hydrox/Simethicone (Maalox Max Susp) 15 ml Q4H PRN PO 06/03/16 14:30 07/03/16 14:29 06/06/16 21:05 15 ML Magnesium Hydroxide (Milk Of Magnesia Susp) 30 ml Q12H PRN PO 06/03/16 14:30 07/03/16 14:29 Ondansetron HCl (Zofran Inj) 4 mg Q6H PRN IV 06/03/16 14:30 07/03/16 14:29 06/05/16 15:11 4 MG Oxycodone/ Acetaminophen (Percocet 5-325mg Tab) 2 tab Q4H PRN PO 06/03/16 14:30 06/17/16 14:29 Metoclopramide HCl (Reglan Inj) 5 mg Q6H PRN IV 06/03/16 14:30 07/03/16 14:29 06/05/16 17:22 5 MG Trazodone HCl (Desyrel Tab) 100 mg HS PO 06/05/16 21:00 07/05/16 20:59 06/07/16 19:55 100 MG Chlordiazepoxide (Librium Cap) 10 mg BID PO 06/06/16 09:00 07/06/16 08:59 06/08/16 07:35 10 MG Trazodone HCl (Desyrel Tab) 25 mg HS PO 06/05/16 21:00 07/05/16 20:59 06/07/16 19:57 25 MG Metoprolol Tartrate (Lopressor Iv) 2.5 mg Q6H PRN IV 06/07/16 10:30 07/07/16 10:29 06/07/16 12:58 2.5 MG Metoprolol Succinate 75 mg 75 mg QAM PO 06/08/16 09:00 07/08/16 08:59 06/08/16 07:32 75 MG Vancomycin HCl 750 mg/Sodium Chloride 265 ml @ 125 mls/hr TODAY@1600 IV 06/09/16 16:00 06/09/16 23:59 Azithromycin 500 mg/Dextrose 255 ml @ 125 mls/hr ONE ONCE IV 06/08/16 09:45 06/08/16 11:47 UNV Azithromycin/ Dextrose (Zithromax IV/D5 250ml) 252.5 ml @ 125 mls/hr DAILY IV 06/09/16 09:00 06/16/16 08:59 UNV Objective Vital Signs Date Time Temp Pulse Resp B/P Pulse Ox O2 Delivery O2 Flow Rate FiO2 06/08/16 08:00 93 Room Air 06/08/16 08:00 36.6 94 14 164/60 06/08/16 06:00 75 17 Room Air 06/08/16 04:00 36.8 80 18 147/67 93 Room Air 06/08/16 04:00 Room Air 06/08/16 02:00 69 17 93 Room Air 06/08/16 00:01 36.6 70 16 148/87 93 Room Air 06/07/16 23:59 Room Air 06/07/16 22:00 70 17 95 Room Air 06/07/16 20:00 36.9 105 20 128/89 95 Nasal Cannula 3.0 06/07/16 20:00 95 Nasal Cannula 3.0 06/07/16 19:00 36.8 116 134/69 06/07/16 18:15 77 126/71 06/07/16 18:06 37.0 76 18 142/73 97 Nasal Cannula 5.0 06/07/16 18:00 84 105/51 06/07/16 17:45 94 128/72 06/07/16 17:30 75 126/63 06/07/16 17:15 77 129/56 06/07/16 17:00 83 149/66 06/07/16 16:45 92 124/73 06/07/16 16:30 103 113/54 06/07/16 16:15 88 115/66 06/07/16 16:00 36.8 88 18 115/66 95 Nasal Cannula 5.0 06/07/16 16:00 119 150/97 06/07/16 16:00 Nasal Cannula 5.0 06/07/16 15:45 128 132/62 06/07/16 15:30 110 127/62 06/07/16 15:15 110 140/73 06/07/16 15:00 91 134/61 06/07/16 14:45 93 138/52 06/07/16 14:30 89 117/72 06/07/16 14:24 104 136/80 06/07/16 14:15 37.0 100 148/71 06/07/16 14:00 36.8 104 24 117/72 93 Nasal Cannula 5.0 06/07/16 12:58 128 158/72 06/07/16 10:51 142 171/93 Physical Exam General Appearance: no apparent distress, + obese Eyes: normal inspection, sclerae normal ENT: hearing grossly normal Neck: supple, trachea midline Respiratory/Chest: chest non-tender, lungs clear, no respiratory distress, no accessory muscle use Cardiovascular: + pertinent finding (atrial flutter on monitor, regular rate) Abdomen: normal bowel sounds, non tender, soft Extremities: + swelling (1+ edema of right lower extremity), + pertinent finding (dressing in place right foot) Neurologic/Psychiatric: alert, normal mood/affect, oriented x 3 Skin: normal color, warm/dry, no rash Laboratory Results CT ANGIOGRAPHY OF THE CHEST, PULMONARY EMBOLUS PROTOCOL CLINICAL HISTORY: Hypoxia. COMPARISON STUDY: Chest radiograph June 07, [address] December 24, 2014. TECHNIQUE: Following IV administration of 94 mL of Optiray-320, helical axial images of the chest were obtained utilizing the pulmonary embolus protocol. Maximal intensity projections and sagittal and coronal reformats were viewed on an independent 3D workstation. IV contrast was administered without complication. CT DOSE: 2045.73 mGy.cm FINDINGS: No pulmonary emboli are identified although the segmental and subsegmental pulmonary arteries are suboptimally assessed due to respiratory motion. The heart is mildly enlarged. There is no pericardial effusion. There is no evidence of thoracic aortic dissection. No enlarged thoracic lymph nodes are noted. There is extensive right upper, right middle lobe and right lower lobe consolidation. There is no cavitation. The lungs are suboptimally assessed due to respiratory motion. There is mild emphysema. Central airways are patent. Bony thorax and upper abdomen are unremarkable. IMPRESSION: 1. No pulmonary emboli identified although the segmental and subsegmental pulmonary arteries are suboptimally assessed due to respiratory motion. 2. Extensive right lung consolidation consistent with pneumonia. A follow-up chest CT in 2 months to ensure resolution is recommended. 3. Mild to moderate emphysema. Item Value Date Time MRSA DNA Surveillance Screen - Final Complete 06/07/16 1300 Nasal Specimen Negative for MRSA by DNA Probe Urine Culture - Final Complete 06/04/16 1945 Urine , Clean Catch NO GROWTH - LESS THAN 1,000 COLONIES/ML Gram Stain - Final Resulted 06/03/16 1359 Abscess Toe Right 5 Gram Stain - Final Resulted 06/03/16 1349 Abscess Foot Right Blood Culture - Final Complete 06/02/16 1110 Blood NO GROWTH Blood Culture - Final Complete 06/02/16 1050 Blood NO GROWTH Last 24 Hours Test 06/07/16 10:55 06/07/16 11:07 06/07/16 12:30 06/07/16 14:00 Arterial Blood pH 7.47 Arterial Blood Partial Pressure CO2 37 mmHg Arterial Blood Partial Pressure O2 67 mm/Hg Arterial Blood HCO3 26 mmol/L Arterial Blood Oxygen Saturation 92.0 % Arterial Blood Base Excess 2.5 mEq/L Arterial Blood Gas Delivery 5 LITERS Edu Test POSITIVE Bedside Glucose 133 mg/dl Digoxin Level 0.9 ng/ml Prothrombin Time 11.0 SECONDS Prothromb Time International Ratio 1.0 Activated Partial Thromboplast Time 27.6 SECONDS Partial Thromboplastin Ratio 1.1 Sodium Level 127 mmol/L Potassium Level 5.0 mmol/L Chloride Level 87 mmol/L Carbon Dioxide Level 26 mmol/L Anion Gap 14.0 mmol/L Blood Urea Nitrogen 76 mg/dl Creatinine 11.00 mg/dl Est Creatinine Clear Calc Drug Dose 7.8 ml/min Estimated GFR () 4.7 Estimated GFR (Non- 4.1 BUN/Creatinine Ratio 6.9 Random Glucose 132 mg/dl Lactic Acid Level 1.0 mmol/L Calcium Level 8.5 mg/dl Phosphorus Level 7.3 mg/dl Magnesium Level 2.9 mg/dl Total Bilirubin 0.6 mg/dl Direct Bilirubin 0.3 mg/dl Aspartate Amino Transf (AST/SGOT) 52 U/L Alanine Aminotransferase (ALT/SGPT) 49 U/L Alkaline Phosphatase 321 U/L Total Protein 6.8 gm/dl Albumin 2.0 gm/dl Procalcitonin 24.24 ng/ml Random Cortisol 33.91 mcg/dl Test 06/07/16 21:07 06/08/16 00:11 06/08/16 04:55 06/08/16 09:31 Bedside Glucose 163 mg/dl 246 mg/dl White Blood Count 14.77 K/uL Red Blood Count 2.74 M/uL Hemoglobin 8.3 g/dL Hematocrit 25.2 % Mean Corpuscular Volume 92.0 fL Mean Corpuscular Hemoglobin 30.3 pg Mean Corpuscular Hemoglobin Concent 32.9 g/dl Platelet Count 412 K/uL Mean Platelet Volume 8.1 fL Neutrophils (%) (Auto) 70.3 % Lymphocytes (%) (Auto) 15.5 % Monocytes (%) (Auto) 9.3 % Eosinophils (%) (Auto) 3.9 % Basophils (%) (Auto) 0.3 % Neutrophils # (Auto) 10.37 K/uL Lymphocytes # (Auto) 2.29 K/uL Monocytes # (Auto) 1.37 K/uL Eosinophils # (Auto) 0.58 K/uL Basophils # (Auto) 0.05 K/uL RDW Standard Deviation 47.2 fL RDW Coefficient of Variation 14.1 % Immature Granulocyte % (Auto) 0.7 % Immature Granulocyte # (Auto) 0.11 K/uL Anisocytosis PRESENT Sodium Level 133 mmol/L Potassium Level 4.2 mmol/L Chloride Level 95 mmol/L Carbon Dioxide Level 30 mmol/L Anion Gap 8.0 mmol/L Blood Urea Nitrogen 35 mg/dl Creatinine 6.30 mg/dl Est Creatinine Clear Calc Drug Dose 13.6 ml/min Estimated GFR () 9.2 Estimated GFR (Non- 8.0 BUN/Creatinine Ratio 5.5 Random Glucose 153 mg/dl Calcium Level 8.5 mg/dl Random Vancomycin Level 19.3 mcg/ml Digoxin Level 0.7 ng/ml Assessment and Plan Patient with right 5th distal metatarsal abscess and osteomyelitis with chronic overlying ulceration and now probable right sided pneumonia and new onset diarrhea. Wound culture growing MSSA, Enterococcus, and Bacteroides. He is currently only on Zosyn, Vancomycin and Azithromycin. Will continue current abx pending further improvement. Will also check C. Diff toxin with diarrhea. PROVIDER ADDENDUM: Pt. reviewed with Ms. Linder. Agree with above assessment.
[2016-06-08] MEDS ORDERED: AZITHROMYCIN IV 500 MG in DEXTROSE 5% 250ML 250 ML IV ONE (11:00)
--- NOTE | 2016-06-08 11:27 | Pulmonology Progress Note ---
Pulmonary Progress Note Date of Service Jun 08, 2016. Attending Dr. Daniel Subjective Patient doing well today with no active pulmonary complaints Objective Patient showing no signs of respiratory insufiecncy: VS: stable on RA I/O: -2L RESP: mild crackles bilaterally greatest at the basis CARD: RRR no M/R/G ABD: soft, no pain to deep palpation Wound Cx: MSSA, Enterococcus, Bacteroides. ABX: Zosyn, Vancomycin and Azithromycin. Assessment & Plan 75y/o male admitted with osteomyelitis of the right 5th toe complicated with acute dyspnea/SOB: 1) Dyspnea/Hypoxemia: Combination of HCAP, acute on chronic A-fib with RVR possible aspiration and volume overload secondary to ESRD. Patient responding well to diuresis and would continue at this time. 2) COPD: On active issues suggest the patient f/u in the pulmonary clinic with repeat PFT's every year and when stable adjustment of his inhalers. 3) Aspiration: Patient with CT consistent with aspiration event and history of dysphagia speech evaluation order. 4) DVT: patient's recent vascular exams show small non-occlusive thrombus at the level of the antecubital fossa and chronic DVT left tibial vein which are both considered distal veins and don't require anti-coagulation. Will sign off at this time. Data Medications: Current Inpatient Medications Medications (Trade) Dose Ordered Sig/Eliseo Route Start Time Stop Time Status Last Admin Dose Admin Heparin Sodium (Porcine) (Heparin Sq 5000 Unit/0.5ml) 5,000 unit Q8 SQ 06/02/16 22:00 07/02/16 21:59 06/07/16 21:29 5,000 UNIT Polyethylene (Miralax Powder Packet) 17 gm DAILY PO 06/03/16 08:00 07/03/16 08:59 06/08/16 07:32 17 GM Allopurinol (Zyloprim Tab) 100 mg HS PO 06/02/16 21:00 07/02/16 20:59 06/07/16 19:55 100 MG Amlodipine Besylate (Norvasc Tab) 5 mg QAM PO 06/03/16 08:00 07/03/16 08:59 Future Hold 06/03/16 08:26 5 MG Aspirin (Ecotrin Tab) 81 mg QAM PO 06/03/16 08:00 07/03/16 08:59 06/08/16 07:31 81 MG Atorvastatin Calcium (Lipitor Tab) 20 mg DAILY PO 06/03/16 08:00 07/03/16 08:59 06/08/16 07:33 20 MG Calcium Acetate (Phoslo Cap) 667 mg TIDM PO 06/02/16 17:00 07/02/16 16:59 06/08/16 07:31 667 MG Furosemide (Lasix Tab) 40 mg DAILY PO 06/03/16 08:00 07/03/16 08:59 06/08/16 07:33 40 MG Ipratropium [place] (Atrovent Hfa Inhaler) 2 puffs QID PRN INH 06/02/16 12:30 07/02/16 12:29 Albuterol/ Ipratropium (Duoneb) 3 ml Q4H PRN INH 06/02/16 12:30 07/02/16 12:29 Meclizine HCl (Antivert Tab) 25 mg Q4H PRN PO 06/02/16 12:30 07/02/16 12:29 Tamsulosin HCl (Flomax Cap) 0.4 mg HS PO 06/02/16 21:00 07/02/16 20:59 06/07/16 19:55 0.4 MG Cholecalciferol (Vitamin D Tab) 2,000 inter.unit QAM PO 06/03/16 08:00 07/03/16 08:59 06/08/16 07:33 2,000 INTER.UNIT Insulin Detemir (Levemir Flexpen/ FlexTouch) 80 unit HS SC 06/02/16 21:00 07/02/16 20:59 06/06/16 21:03 60 UNIT Ranitidine HCl (zANTac TAB) 300 mg QAM PO 06/03/16 08:00 07/03/16 08:59 06/08/16 07:34 300 MG Oxycodone/ Acetaminophen 1 tab 1 tab Q4H PRN PO 06/02/16 12:30 06/16/16 12:29 06/08/16 04:25 1 TAB Piperacillin Sod/ Tazobactam Sod/ Dextrose (Zosyn Iv/D5 100ml) 120 ml @ 30 mls/hr Q12H IV 06/02/16 20:00 07/14/16 19:59 06/08/16 07:31 30 MLS/HR Piperacillin Sod/ Tazobactam Sod (Consult) 1 ea UD PRN N/A 06/02/16 15:00 07/02/16 14:59 Vancomycin HCl (Consult) 1 ea UD PRN N/A 06/02/16 15:00 07/02/16 14:59 Glucose (Glucose 40% Gel) 15-30 GRAMS 15 GRAMS... UD PRN PO 06/02/16 17:00 07/02/16 16:59 Glucose (Glucose Chew Tab) 4-8 Tablets 4 Tabl... UD PRN PO 06/02/16 17:00 07/02/16 16:59 Dextrose (Dextrose 50% 50ML Syringe) 25-50ML OF 50% DW IV FOR... UD PRN IV 06/02/16 17:00 07/02/16 16:59 Glucagon (Glucagon Inj) 1 mg UD PRN SQ 06/02/16 17:00 07/02/16 16:59 Insulin Aspart (novoLOG ASPART) SLIDING SCALE If C... ACHS SC 06/02/16 21:00 07/02/16 20:59 06/08/16 07:54 5 UNITS Acetaminophen (Tylenol Tab) 650 mg Q4H PRN PO 06/03/16 14:30 07/03/16 14:29 06/07/16 10:52 650 MG Al Hydrox/Mg Hydrox/Simethicone (Maalox Max Susp) 15 ml Q4H PRN PO 06/03/16 14:30 07/03/16 14:29 06/06/16 21:05 15 ML Magnesium Hydroxide (Milk Of Magnesia Susp) 30 ml Q12H PRN PO 06/03/16 14:30 07/03/16 14:29 Ondansetron HCl (Zofran Inj) 4 mg Q6H PRN IV 06/03/16 14:30 07/03/16 14:29 06/05/16 15:11 4 MG Oxycodone/ Acetaminophen (Percocet 5-325mg Tab) 2 tab Q4H PRN PO 06/03/16 14:30 06/17/16 14:29 Metoclopramide HCl (Reglan Inj) 5 mg Q6H PRN IV 06/03/16 14:30 07/03/16 14:29 06/05/16 17:22 5 MG Trazodone HCl (Desyrel Tab) 100 mg HS PO 06/05/16 21:00 07/05/16 20:59 06/07/16 19:55 100 MG Chlordiazepoxide (Librium Cap) 10 mg BID PO 06/06/16 09:00 07/06/16 08:59 06/08/16 07:35 10 MG Trazodone HCl (Desyrel Tab) 25 mg HS PO 06/05/16 21:00 07/05/16 20:59 06/07/16 19:57 25 MG Metoprolol Tartrate (Lopressor Iv) 2.5 mg Q6H PRN IV 06/07/16 10:30 07/07/16 10:29 06/07/16 12:58 2.5 MG Metoprolol Succinate 75 mg 75 mg QAM PO 06/08/16 09:00 07/08/16 08:59 06/08/16 07:32 75 MG Vancomycin HCl 750 mg/Sodium Chloride 265 ml @ 125 mls/hr TODAY@1600 IV 06/09/16 16:00 06/09/16 23:59 Azithromycin 500 mg/Dextrose 255 ml @ 125 mls/hr 1100 ONCE IV 06/08/16 11:00 06/08/16 13:02 Azithromycin/ Dextrose (Zithromax IV/D5 250ml) 252.5 ml @ 125 mls/hr DAILY@0900 IV 06/09/16 09:00 06/15/16 08:59 I & O: 24-Hour Column 06/08/16 08:00 Intake Total 880 ml Output Total 3300 ml Balance -2420 ml Vital Signs: Date Time Temp Pulse Resp B/P Pulse Ox O2 Delivery O2 Flow Rate FiO2 06/08/16 08:00 93 Room Air 06/08/16 08:00 36.6 94 14 164/60 06/08/16 06:00 75 17 Room Air 06/08/16 04:00 36.8 80 18 147/67 93 Room Air 06/08/16 04:00 Room Air 06/08/16 02:00 69 17 93 Room Air 06/08/16 00:01 36.6 70 16 148/87 93 Room Air 06/07/16 23:59 Room Air 06/07/16 22:00 70 17 95 Room Air 06/07/16 20:00 36.9 105 20 128/89 95 Nasal Cannula 3.0 06/07/16 20:00 95 Nasal Cannula 3.0 06/07/16 19:00 36.8 116 134/69 06/07/16 18:15 77 126/71 06/07/16 18:06 37.0 76 18 142/73 97 Nasal Cannula 5.0 06/07/16 18:00 84 105/51 06/07/16 17:45 94 128/72 06/07/16 17:30 75 126/63 06/07/16 17:15 77 129/56 06/07/16 17:00 83 149/66 06/07/16 16:45 92 124/73 06/07/16 16:30 103 113/54 06/07/16 16:15 88 115/66 06/07/16 16:00 36.8 88 18 115/66 95 Nasal Cannula 5.0 06/07/16 16:00 119 150/97 06/07/16 16:00 Nasal Cannula 5.0 06/07/16 15:45 128 132/62 06/07/16 15:30 110 127/62 06/07/16 15:15 110 140/73 06/07/16 15:00 91 134/61 06/07/16 14:45 93 138/52 06/07/16 14:30 89 117/72 06/07/16 14:24 104 136/80 06/07/16 14:15 37.0 100 148/71 06/07/16 14:00 36.8 104 24 117/72 93 Nasal Cannula 5.0 06/07/16 12:58 128 158/72 Laboratory Results: Last 24 Hours Test 06/07/16 12:30 06/07/16 14:00 06/07/16 21:07 06/08/16 00:11 Digoxin Level 0.9 ng/ml Prothrombin Time 11.0 SECONDS Prothromb Time International Ratio 1.0 Activated Partial Thromboplast Time 27.6 SECONDS Partial Thromboplastin Ratio 1.1 Sodium Level 127 mmol/L Potassium Level 5.0 mmol/L Chloride Level 87 mmol/L Carbon Dioxide Level 26 mmol/L Anion Gap 14.0 mmol/L Blood Urea Nitrogen 76 mg/dl Creatinine 11.00 mg/dl Est Creatinine Clear Calc Drug Dose 7.8 ml/min Estimated GFR () 4.7 Estimated GFR (Non- 4.1 BUN/Creatinine Ratio 6.9 Random Glucose 132 mg/dl Lactic Acid Level 1.0 mmol/L Calcium Level 8.5 mg/dl Phosphorus Level 7.3 mg/dl Magnesium Level 2.9 mg/dl Total Bilirubin 0.6 mg/dl Direct Bilirubin 0.3 mg/dl Aspartate Amino Transf (AST/SGOT) 52 U/L Alanine Aminotransferase (ALT/SGPT) 49 U/L Alkaline Phosphatase 321 U/L Total Protein 6.8 gm/dl Albumin 2.0 gm/dl Procalcitonin 24.24 ng/ml Random Cortisol 33.91 mcg/dl Bedside Glucose 163 mg/dl 246 mg/dl Test 06/08/16 04:55 06/08/16 09:31 White Blood Count 14.77 K/uL Red Blood Count 2.74 M/uL Hemoglobin 8.3 g/dL Hematocrit 25.2 % Mean Corpuscular Volume 92.0 fL Mean Corpuscular Hemoglobin 30.3 pg Mean Corpuscular Hemoglobin Concent 32.9 g/dl Platelet Count 412 K/uL Mean Platelet Volume 8.1 fL Neutrophils (%) (Auto) 70.3 % Lymphocytes (%) (Auto) 15.5 % Monocytes (%) (Auto) 9.3 % Eosinophils (%) (Auto) 3.9 % Basophils (%) (Auto) 0.3 % Neutrophils # (Auto) 10.37 K/uL Lymphocytes # (Auto) 2.29 K/uL Monocytes # (Auto) 1.37 K/uL Eosinophils # (Auto) 0.58 K/uL Basophils # (Auto) 0.05 K/uL RDW Standard Deviation 47.2 fL RDW Coefficient of Variation 14.1 % Immature Granulocyte % (Auto) 0.7 % Immature Granulocyte # (Auto) 0.11 K/uL Anisocytosis PRESENT Sodium Level 133 mmol/L Potassium Level 4.2 mmol/L Chloride Level 95 mmol/L Carbon Dioxide Level 30 mmol/L Anion Gap 8.0 mmol/L Blood Urea Nitrogen 35 mg/dl Creatinine 6.30 mg/dl Est Creatinine Clear Calc Drug Dose 13.6 ml/min Estimated GFR () 9.2 Estimated GFR (Non- 8.0 BUN/Creatinine Ratio 5.5 Random Glucose 153 mg/dl Calcium Level 8.5 mg/dl Random Vancomycin Level 19.3 mcg/ml Digoxin Level 0.7 ng/ml Procalcitonin 18.87 ng/ml
--- NOTE | 2016-06-08 12:12 | ECHOCARDIOGRAM REPORT ---
*NOTICE TO RECEIVING REPUBLICAN AGENCY This information is strictly Confidential and protected under [place] law. [place] law prohibits you from making any further disclosure of this information unless further disclosure is expressly permitted by the written consent of the person to whom it pertains or is authorized by law. A general authorization for the release of medical or other information is not sufficient for this purpose. Hospital accepts no responsibility if the information is made available to any other person, INCLUDING THE PATIENT. Interpretation Summary * Name: GUILLERMO MARTINEZ Study Date: 06/08/2016 08:40 AM BP: 138/52 mmHg * Patient Location: .MSICU\S\E104\S\1 HR: 93 * : 1940 (M/d/yyyy) Gender: Male Height: 73 in * Age: 75 yrs Ethnicity: CA Weight: 251 lb * Ordering Physician: Jacque Stanton * Referring Physician: Self, Referred * Performed By: Joycelyn Morales RCS * * Reason For Study: A-FLUTTER * BSA: 2.4 m2 * -- Conclusions -- * 1. Normal LV size. Moderate concentric LVH. * 2. Normal LV systolic function. LVEF 65-70%. No regional wall motion abnormalities. * 3. Normal RV size and function. * 4. No significant valvular pathology. * 5. Normal estimated CVP. * 6. Moderate left atrial enlargement * 7. No prior studies for comparison. Procedure Details * Left Ventricle The left ventricle is normal in size. There is moderate concentric left ventricular hypertrophy. Ejection Fraction = 65-70%. No regional wall motion abnormalities noted. * Right Ventricle The right ventricle is grossly normal size. The right ventricular systolic function is normal as assessed by tricuspid annular plane systolic excursion (TAPSE) (normal >1.5 cm). * Atria The left atrium is moderately dilated. Right atrial size is normal. No ASD detected; PFO is not assessed. * Mitral Valve The mitral valve is grossly normal. There is no mitral valve stenosis. There is trace mitral regurgitation. * Tricuspid Valve The tricuspid valve is not well visualized, but is grossly normal. There is trace tricuspid regurgitation. * Aortic Valve The aortic valve opens well. There is discrete nodular thickening of the non- coronary cusp. The aortic valve is trileaflet. No hemodynamically significant valvular aortic stenosis. There is no significant aortic regurgitation. * Pulmonic Valve The pulmonary valve is inadequately visualized, but the Doppler data is adequate for interpretation. There is no pulmonic valvular stenosis. There is no pulmonic valvular regurgitation. * Great Vessels The aortic root and proximal ascending aorta are normal sized. * Pericardium/Pleural There is no pericardial effusion. * Great Vessels Normal inferior vena cava size and collapsability with sniff indicates a normal right atrial pressure of 3 mmHg * * MMode 2D Measurements and Calculations * IVSd 1.6 cm * IVSs 2.1 cm * * LVIDd 4.2 cm * LVIDs 2.4 cm * LVPWd 1.6 cm * LVPWs 2.1 cm * * IVS/LVPW 1.0 * FS 41.4 % * EDV(Teich) 77.5 ml * ESV(Teich) 21.1 ml * EF(Teich) 72.7 % * * EDV(cubed) 72.8 ml * ESV(cubed) 14.6 ml * EF(cubed) 79.9 % * % IVS thick 31.9 % * % LVPW thick 36.8 % * * LV mass(C)d 264.3 grams * LV mass(C)dI 111.5 grams/m\S\2 * LV mass(C)s 232.9 grams * LV mass(C)sI 98.3 grams/m\S\2 * * CO(Teich) 3.8 l/min * CI(Teich) 1.6 l/min/m\S\2 * SV(Teich) 56.4 ml * SI(Teich) 23.8 ml/m\S\2 * CO(cubed) 3.9 l/min * CI(cubed) 1.6 l/min/m\S\2 * SV(cubed) 58.2 ml * SI(cubed) 24.5 ml/m\S\2 * * Ao root diam 4.0 cm * Ao root area 12.5 cm\S\2 * ACS 1.7 cm * LA dimension 4.7 cm * * asc Aorta Diam 3.4 cm * * LA/Ao 1.2 * * LVAd ap4 38.6 cm\S\2 * LVLd ap4 9.3 cm * EDV(MOD-sp4) 131.0 ml * LVAs ap4 18.6 cm\S\2 * LVLs ap4 7.1 cm * ESV(MOD-sp4) 41.0 ml * EF(MOD-sp4) 68.7 % * * LVAd ap2 38.3 cm\S\2 * LVLd ap2 9.1 cm * EDV(MOD-sp2) 136.0 ml * LVAs ap2 18.9 cm\S\2 * LVLs ap2 7.6 cm * ESV(MOD-sp2) 40.0 ml * EF(MOD-sp2) 70.6 % * * CO(MOD-sp4) 6.0 l/min * CI(MOD-sp4) 2.5 l/min/m\S\2 * SV(MOD-sp4) 90.0 ml * SI(MOD-sp4) 38.0 ml/m\S\2 * * CO(MOD-sp2) 6.4 l/min * CI(MOD-sp2) 2.7 l/min/m\S\2 * SV(MOD-sp2) 96.0 ml * SI(MOD-sp2) 40.5 ml/m\S\2 * * * * * * Doppler Measurements and Calculations * MV E max mychal 137.6 cm/sec * MV A max mychal 53.1 cm/sec * * MV E/A 2.6 * * MV P1/2t max mychal 130.3 cm/sec * MV P1/2t 84.2 msec * MVA(P1/2t) 2.6 cm\S\2 * MV dec slope 453.3 cm/sec\S\2 * MV dec time 0.17 sec * * Ao V2 max 123.3 cm/sec * Ao max PG 6.1 mmHg * Ao max PG (full) 3.0 mmHg * * LV V1 max PG 3.1 mmHg * * LV V1 max 87.8 cm/sec * * MR max mychal 415.3 cm/sec * MR max PG 69.0 mmHg * * PA V2 max 113.0 cm/sec * PA max PG 5.1 mmHg * *
--- NOTE | 2016-06-08 12:17 | Nephrology Progress Note ---
Nephrology Progress Note Date of Service Jun 08, 2016. Chief Complaint Follow-up for end-stage renal disease on hemodialysis. Donna Díaz Was seen and examined in his room in intensive care unit this morning. He overall feels poorly but denies any specific symptom, shortness of breath seems to have resolved, currently denies any chest pain. Blood pressure seems to be well controlled. His oxygen saturation normal in room air, other vitals stable. Volume status and electrolyte acceptable. Review of Systems A complete review of systems was performed. Pertinent positives are noted above. All other systems are negative. Vital Signs Last 8 Hrs Date Time Temp Pulse Resp B/P Pulse Ox O2 Delivery O2 Flow Rate FiO2 06/08/16 06:00 75 17 Room Air 06/08/16 04:00 36.8 80 18 147/67 93 Room Air 06/08/16 04:00 Room Air 06/08/16 02:00 69 17 93 Room Air I & O 24-Hour Column 06/08/16 08:00 Intake Total 880 ml Output Total 3300 ml Balance -2420 ml Last Recorded Weight Weight (Kilograms): 111.300 Physical Exam GENERAL: Elderly male, AAA x 3, ill appearing, not in any distress. NECK: Supple, no JVD. RESPIRATORY: Normal breathing efforts, no accessory muscle use, clear to auscultation bilaterally, no wheezes or rales. CARDIOVASCULAR: S1, S2 normal, rate rhythm regular. EXTREMITY: right foot in dressing, with mild erythema and 1+ edema NEURO: speech fluent. PSYCHIATRY: Normal mood and judgment Family History FH: diabetes mellitus AUNT FH: stroke GRANDMOTHER Negative for CKD / ESRD Social History Smoking Status: Unknown if ever smoked Drug Use: none Marital Status: Housing Status: lives with family Occupation: retired . Retired. Former smoker (2ppd x 45 years, quit 2002) Laboratory Results Past 24 Hours 06/08/16 04:55 Red Blood Count 2.74, Mean Corpuscular Volume 92.0, Mean Corpuscular Hemoglobin 30.3, Mean Corpuscular Hemoglobin Concent 32.9, Mean Platelet Volume 8.1, Neutrophils (%) (Auto) 70.3, Lymphocytes (%) (Auto) 15.5, Monocytes (%) (Auto) 9.3, Eosinophils (%) (Auto) 3.9, Basophils (%) (Auto) 0.3, Neutrophils # (Auto) 10.37, Lymphocytes # (Auto) 2.29, Monocytes # (Auto) 1.37, Eosinophils # (Auto) 0.58, Basophils # (Auto) 0.05 06/07/16 14:00 06/08/16 04:55 Test 06/07/16 10:55 06/07/16 11:07 06/07/16 12:30 06/07/16 14:00 Arterial Blood pH 7.47 (7.35-7.45) Arterial Blood Partial Pressure CO2 37 mmHg (35-46) Arterial Blood Partial Pressure O2 67 mm/Hg (80-95) Arterial Blood HCO3 26 mmol/L (19-24) Arterial Blood Oxygen Saturation 92.0 % (90-95) Arterial Blood Base Excess 2.5 mEq/L (-9-1.8) Arterial Blood Gas Delivery 5 LITERS Edu Test POSITIVE (POS) Bedside Glucose 133 mg/dl (70-99) Digoxin Level 0.9 ng/ml (0.8-2.0) Prothrombin Time 11.0 SECONDS (9.0-12.0) Prothromb Time International Ratio 1.0 (0.9-1.1) Activated Partial Thromboplast Time 27.6 SECONDS (21.0-31.0) Partial Thromboplastin Ratio 1.1 Anion Gap 14.0 mmol/L (3-11) Est Creatinine Clear Calc Drug Dose 7.8 ml/min Estimated GFR () 4.7 Estimated GFR (Non- 4.1 BUN/Creatinine Ratio 6.9 (10-20) Lactic Acid Level 1.0 mmol/L (0.4-2.0) Calcium Level 8.5 mg/dl (8.5-10.1) Phosphorus Level 7.3 mg/dl (2.5-4.9) Magnesium Level 2.9 mg/dl (1.8-2.4) Total Bilirubin 0.6 mg/dl (0.2-1) Direct Bilirubin 0.3 mg/dl (0-0.2) Aspartate Amino Transf (AST/SGOT) 52 U/L (15-37) Alanine Aminotransferase (ALT/SGPT) 49 U/L (12-78) Alkaline Phosphatase 321 U/L (45-117) Total Protein 6.8 gm/dl (6.4-8.2) Albumin 2.0 gm/dl (3.4-5.0) Procalcitonin 24.24 ng/ml (0-0.5) Random Cortisol 33.91 mcg/dl Test 06/07/16 21:07 06/08/16 00:11 06/08/16 04:55 Bedside Glucose 163 mg/dl (70-99) 246 mg/dl (70-99) White Blood Count 14.77 K/uL (4.8-10.8) Red Blood Count 2.74 M/uL (4.7-6.1) Hemoglobin 8.3 g/dL (14.0-18.0) Hematocrit 25.2 % (42-52) Mean Corpuscular Volume 92.0 fL (80-100) Mean Corpuscular Hemoglobin 30.3 pg (25-34) Mean Corpuscular Hemoglobin Concent 32.9 g/dl (32-36) Platelet Count 412 K/uL (130-400) Mean Platelet Volume 8.1 fL (7.4-10.4) Neutrophils (%) (Auto) 70.3 % Lymphocytes (%) (Auto) 15.5 % Monocytes (%) (Auto) 9.3 % Eosinophils (%) (Auto) 3.9 % Basophils (%) (Auto) 0.3 % Neutrophils # (Auto) 10.37 K/uL (1.4-6.5) Lymphocytes # (Auto) 2.29 K/uL (1.2-3.4) Monocytes # (Auto) 1.37 K/uL (0.11-0.59) Eosinophils # (Auto) 0.58 K/uL (0-0.5) Basophils # (Auto) 0.05 K/uL (0-0.2) RDW Standard Deviation 47.2 fL (36.4-46.3) RDW Coefficient of Variation 14.1 % (11.5-14.5) Immature Granulocyte % (Auto) 0.7 % Immature Granulocyte # (Auto) 0.11 K/uL (0.00-0.02) Anisocytosis PRESENT Anion Gap 8.0 mmol/L (3-11) Est Creatinine Clear Calc Drug Dose 13.6 ml/min Estimated GFR () 9.2 Estimated GFR (Non- 8.0 BUN/Creatinine Ratio 5.5 (10-20) Calcium Level 8.5 mg/dl (8.5-10.1) Random Vancomycin Level 19.3 mcg/ml Digoxin Level 0.7 ng/ml (0.8-2.0) Date/Time Source Procedure Growth Status 06/07/16 13:00 Nasal MRSA DNA Surveillance Screen - Final Specimen Negative for MRSA by DNA Probe Complete Allergies Coded Allergies: No Known Allergies (Verified , 06/02/16) Medications Current Inpatient Medications Medications (Trade) Dose Ordered Sig/Eliseo Route Start Time Stop Time Status Last Admin Dose Admin Heparin Sodium (Porcine) (Heparin Sq 5000 Unit/0.5ml) 5,000 unit Q8 SQ 06/02/16 22:00 07/02/16 21:59 06/07/16 21:29 5,000 UNIT Polyethylene (Miralax Powder Packet) 17 gm DAILY PO 06/03/16 08:00 07/03/16 08:59 06/08/16 07:32 17 GM Allopurinol (Zyloprim Tab) 100 mg HS PO 06/02/16 21:00 07/02/16 20:59 06/07/16 19:55 100 MG Amlodipine Besylate (Norvasc Tab) 5 mg QAM PO 06/03/16 08:00 07/03/16 08:59 Future Hold 06/03/16 08:26 5 MG Aspirin (Ecotrin Tab) 81 mg QAM PO 06/03/16 08:00 07/03/16 08:59 06/08/16 07:31 81 MG Atorvastatin Calcium (Lipitor Tab) 20 mg DAILY PO 06/03/16 08:00 07/03/16 08:59 06/08/16 07:33 20 MG Calcium Acetate (Phoslo Cap) 667 mg TIDM PO 06/02/16 17:00 07/02/16 16:59 06/08/16 07:31 667 MG Furosemide (Lasix Tab) 40 mg DAILY PO 06/03/16 08:00 07/03/16 08:59 06/08/16 07:33 40 MG Ipratropium [place] (Atrovent Hfa Inhaler) 2 puffs QID PRN INH 06/02/16 12:30 07/02/16 12:29 Albuterol/ Ipratropium (Duoneb) 3 ml Q4H PRN INH 06/02/16 12:30 07/02/16 12:29 Meclizine HCl (Antivert Tab) 25 mg Q4H PRN PO 06/02/16 12:30 07/02/16 12:29 Tamsulosin HCl (Flomax Cap) 0.4 mg HS PO 06/02/16 21:00 07/02/16 20:59 06/07/16 19:55 0.4 MG Cholecalciferol (Vitamin D Tab) 2,000 inter.unit QAM PO 06/03/16 08:00 07/03/16 08:59 06/08/16 07:33 2,000 INTER.UNIT Insulin Detemir (Levemir Flexpen/ FlexTouch) 80 unit HS SC 06/02/16 21:00 07/02/16 20:59 06/06/16 21:03 60 UNIT Ranitidine HCl (zANTac TAB) 300 mg QAM PO 06/03/16 08:00 07/03/16 08:59 06/08/16 07:34 300 MG Oxycodone/ Acetaminophen (Percocet 5-325mg Tab) 1 tab Q4H PRN PO 06/02/16 12:30 06/16/16 12:29 06/08/16 04:25 1 TAB Morphine Sulfate (MoRPHine SULFATE INJ) 2 mg Q2H PRN IV 06/02/16 12:30 06/16/16 12:29 06/06/16 17:31 2 MG Tramadol HCl 50 mg 50 mg Q4H PRN PO 06/02/16 12:30 07/02/16 12:29 06/05/16 20:45 50 MG Piperacillin Sod/ Tazobactam Sod/ Dextrose (Zosyn Iv/D5 100ml) 120 ml @ 30 mls/hr Q12H IV 06/02/16 20:00 07/14/16 19:59 06/08/16 07:31 30 MLS/HR Piperacillin Sod/ Tazobactam Sod (Consult) 1 ea UD PRN N/A 06/02/16 15:00 07/02/16 14:59 Vancomycin HCl (Consult) 1 ea UD PRN N/A 06/02/16 15:00 07/02/16 14:59 Glucose (Glucose 40% Gel) 15-30 GRAMS 15 GRAMS... UD PRN PO 06/02/16 17:00 07/02/16 16:59 Glucose (Glucose Chew Tab) 4-8 Tablets 4 Tabl... UD PRN PO 06/02/16 17:00 07/02/16 16:59 Dextrose (Dextrose 50% 50ML Syringe) 25-50ML OF 50% DW IV FOR... UD PRN IV 06/02/16 17:00 07/02/16 16:59 Glucagon (Glucagon Inj) 1 mg UD PRN SQ 06/02/16 17:00 07/02/16 16:59 Insulin Aspart (novoLOG ASPART) SLIDING SCALE If C... ACHS SC 06/02/16 21:00 07/02/16 20:59 06/08/16 07:54 5 UNITS Acetaminophen (Tylenol Tab) 650 mg Q4H PRN PO 06/03/16 14:30 07/03/16 14:29 06/07/16 10:52 650 MG Al Hydrox/Mg Hydrox/Simethicone (Maalox Max Susp) 15 ml Q4H PRN PO 06/03/16 14:30 07/03/16 14:29 06/06/16 21:05 15 ML Magnesium Hydroxide (Milk Of Magnesia Susp) 30 ml Q12H PRN PO 06/03/16 14:30 07/03/16 14:29 Ondansetron HCl (Zofran Inj) 4 mg Q6H PRN IV 06/03/16 14:30 07/03/16 14:29 06/05/16 15:11 4 MG Oxycodone/ Acetaminophen (Percocet 5-325mg Tab) 2 tab Q4H PRN PO 06/03/16 14:30 06/17/16 14:29 Metoclopramide HCl (Reglan Inj) 5 mg Q6H PRN IV 06/03/16 14:30 07/03/16 14:29 06/05/16 17:22 5 MG Acetaminophen/ Hydrocodone Bitart ([place] 5/325 Tab) 1 tab Q4H PRN PO 06/03/16 14:30 06/17/16 14:29 Trazodone HCl (Desyrel Tab) 100 mg HS PO 06/05/16 21:00 07/05/16 20:59 06/07/16 19:55 100 MG Chlordiazepoxide (Librium Cap) 10 mg BID PO 06/06/16 09:00 07/06/16 08:59 06/08/16 07:35 10 MG Trazodone HCl (Desyrel Tab) 25 mg HS PO 06/05/16 21:00 07/05/16 20:59 06/07/16 19:57 25 MG Metoprolol Tartrate (Lopressor Iv) 2.5 mg Q6H PRN IV 06/07/16 10:30 07/07/16 10:29 06/07/16 12:58 2.5 MG Metoprolol Succinate (Toprol Xl Tab) 75 mg QAM PO 06/08/16 09:00 07/08/16 08:59 06/08/16 07:32 75 MG Impression (1) End-stage renal disease on hemodialysis (2) Cellulitis of right foot (3) Sepsis (4) Monoclonal gammopathy (5) Diabetes mellitus, type II Bre is a 75-year-old gentlemen with end-stage renal disease on hemodialysis Tuesday, Tuesday, Tuesday at [facility] dialysis unit, hypertension, diabetes, history of MGUS, admitted to the hospital on 06/02/16 with episodes of for nausea and vomiting for few days, she will sign of worsening right lower extremity chronic infected diabetic ulcer. 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 Wound culture grew MSSA and gram negative and blood culture was negative. He was initially on clindamycin vancomycin and Zosyn in and then switched to Zosyn after few days. He has some left radiocephalic AV fistula and during hospital stay he was found to have stenosis proximal to the fistula. Dialysis has been going smoothly. He was scheduled for fistulogram on 06/07/2016, however while he was in water he was found to have low oxygen saturation and was tachycardic and procedure was them cancel. Had a CTA PE protocol of some which was negative for PE but found to have pneumonia and he was transferred to intensive care unit for further management. And currently he is on vancomycin, Zosyn and aztreonam. Recommendations -- overall seems to be doing better, hemodynamically stable, electrolyte acceptable and volume status acceptable. -- avoid further IV fluid, continue on phosphate binder with each meal. -- discussed with vascular surgery and they are planning tentatively to do fistulogram as an outpatient as dialysis has been otherwise going smoothly. -- next dialysis tomorrow -- patient otherwise seems to be stable and hopefully will be transferred out of ICU pretty soon.
--- NOTE | 2016-06-08 14:48 | Progress Note ---
Subjective Date of Service: Jun 08, 2016. Subjective Pt evaluation today including: conversation w/ patient, physical exam, chart review Doing well. SOB improved. No CP. HD y.day. Problem List Medical Problems: (1) Cellulitis of right foot Status: Acute (2) Sepsis Status: Acute Review of Systems Respiratory: + shortness of breath Cardiac: + edema Medications Medications (Trade) Dose Ordered Sig/Eliseo Route Start Time Stop Time Status Last Admin Dose Admin Vancomycin HCl/ Sodium Chloride (Vancomycin Inj/ Nss 250ml) 265 ml @ 125 mls/hr TODAY@1600 IV 06/07/16 16:00 06/07/16 18:08 DC 06/07/16 19:53 125 MLS/HR Insulin Detemir (Levemir Flexpen/ FlexTouch) 40 unit ONE ONCE SC 06/07/16 21:30 06/07/16 21:31 DC 06/07/16 21:53 40 UNIT Metoprolol Succinate 75 mg 75 mg QAM PO 06/08/16 09:00 07/08/16 08:59 06/08/16 07:32 75 MG Azithromycin/ Dextrose (Zithromax IV/D5 250ml) 255 ml @ 125 mls/hr 1100 ONCE IV 06/08/16 11:00 06/08/16 13:02 DC 06/08/16 12:10 125 MLS/HR Objective Vital Signs Date Time Temp Pulse Resp B/P Pulse Ox O2 Delivery O2 Flow Rate FiO2 06/08/16 14:00 84 16 138/87 92 Room Air 06/08/16 12:00 93 Room Air 06/08/16 12:00 36.5 70 16 165/63 93 Room Air 06/08/16 10:00 36.8 69 16 146/70 93 Room Air 06/08/16 08:00 93 Room Air 06/08/16 08:00 36.6 94 14 164/60 06/08/16 06:00 75 17 Room Air 06/08/16 04:00 36.8 80 18 147/67 93 Room Air 06/08/16 04:00 Room Air 06/08/16 02:00 69 17 93 Room Air 06/08/16 00:01 36.6 70 16 148/87 93 Room Air 06/07/16 23:59 Room Air 06/07/16 22:00 70 17 95 Room Air 06/07/16 20:00 36.9 105 20 128/89 95 Nasal Cannula 3.0 06/07/16 20:00 95 Nasal Cannula 3.0 06/07/16 19:00 36.8 116 134/69 06/07/16 18:15 77 126/71 06/07/16 18:06 37.0 76 18 142/73 97 Nasal Cannula 5.0 06/07/16 18:00 84 105/51 06/07/16 17:45 94 128/72 06/07/16 17:30 75 126/63 06/07/16 17:15 77 129/56 06/07/16 17:00 83 149/66 06/07/16 16:45 92 124/73 06/07/16 16:30 103 113/54 06/07/16 16:15 88 115/66 06/07/16 16:00 36.8 88 18 115/66 95 Nasal Cannula 5.0 06/07/16 16:00 119 150/97 06/07/16 16:00 Nasal Cannula 5.0 06/07/16 15:45 128 132/62 06/07/16 15:30 110 127/62 06/07/16 15:15 110 140/73 06/07/16 15:00 91 134/61 06/07/16 14:45 93 138/52 Physical Exam Neck: supple, no adenopathy, thyroid normal Respiratory/Chest: chest non-tender, lungs clear Cardiovascular: regular rate, rhythm, no JVD Abdomen: normal bowel sounds, non tender Neurologic/Psychiatric: alert, oriented x 3 Laboratory Results Last 24 Hours Test 06/07/16 21:07 06/08/16 00:11 06/08/16 04:55 06/08/16 09:31 Bedside Glucose 163 mg/dl 246 mg/dl White Blood Count 14.77 K/uL Red Blood Count 2.74 M/uL Hemoglobin 8.3 g/dL Hematocrit 25.2 % Mean Corpuscular Volume 92.0 fL Mean Corpuscular Hemoglobin 30.3 pg Mean Corpuscular Hemoglobin Concent 32.9 g/dl Platelet Count 412 K/uL Mean Platelet Volume 8.1 fL Neutrophils (%) (Auto) 70.3 % Lymphocytes (%) (Auto) 15.5 % Monocytes (%) (Auto) 9.3 % Eosinophils (%) (Auto) 3.9 % Basophils (%) (Auto) 0.3 % Neutrophils # (Auto) 10.37 K/uL Lymphocytes # (Auto) 2.29 K/uL Monocytes # (Auto) 1.37 K/uL Eosinophils # (Auto) 0.58 K/uL Basophils # (Auto) 0.05 K/uL RDW Standard Deviation 47.2 fL RDW Coefficient of Variation 14.1 % Immature Granulocyte % (Auto) 0.7 % Immature Granulocyte # (Auto) 0.11 K/uL Anisocytosis PRESENT Sodium Level 133 mmol/L Potassium Level 4.2 mmol/L Chloride Level 95 mmol/L Carbon Dioxide Level 30 mmol/L Anion Gap 8.0 mmol/L Blood Urea Nitrogen 35 mg/dl Creatinine 6.30 mg/dl Est Creatinine Clear Calc Drug Dose 13.6 ml/min Estimated GFR () 9.2 Estimated GFR (Non- 8.0 BUN/Creatinine Ratio 5.5 Random Glucose 153 mg/dl Calcium Level 8.5 mg/dl Random Vancomycin Level 19.3 mcg/ml Digoxin Level 0.7 ng/ml Procalcitonin 18.87 ng/ml Test 06/08/16 11:27 Bedside Glucose 176 mg/dl Assessment and Plan 75 M with diabetic foot infection at site of chronic wound, surgical debridement, dialysis, PMHx of DM II, HTN, Hyperlipidemia, COPD, ESRD on HD m/ w/f, gout, RLE diabetic foot infection/Cellulitis Possible osteomyelitis RLE R plantar surface of the 5th toe wound gram positives on culture, ID changed to clindamycin, but also yet to be identified Gram negative - Dr. Hart consult surgical debridement 06/03 and remains open, will have wound care eval to see best dressing for healing for secondary intent Afib/flutter. Rate controlled on tele. Appreciate Cards input. Will start pt on formal anti coagulation. Echo results noted. Hypoxia. Improved. CXR and CT chest shows RLL PNA. IV antibiotics as per ID and Pulm. CT chest was neg for PE. Swallowing eval pending to rule out aspiration. ESRD on HD- Nephrology,Chronic but stable m/w/f. fistulae was eval by Doppler, stenosis suggested, Dr Cabral to address Fistulogram cancelled due to a.flutter with RVR. Fistulogram to be pursued as OP. left leg pain, doppler suggests chronic DVT, no acute treatment, left foot shows no avulsion fracture COPD- stable on inhaled medicines, not on continuous oxygen yet Constipation mirilax and dulcolax supp. HTN seems stable post op amlodipine 5 mg daily, lasix 40 mg PO daily, metoprolol succ 50 mg daily anxiety, librium and hs seroquel Hyperlipidemia: atorvastatin 20 mg daily GERDcontinues with no complaints ranitidine 150 mg HS DVT ppx: Teds, scds, heparin sq CODE STATUS: FULL CODE Continued [facility] stay due to: multiple IV medications needed Discharge planning: uncertain
[2016-06-08] MEDS ORDERED: HEPARIN IV BOLUS 7,000 UNIT in SYRINGE 0 ML IV ONE (15:30)
[2016-06-08] MEDS: HEPARIN 25,000 UNIT/500ML D5W 500 ML IV PRN (16:48)
--- NOTE | 2016-06-08 17:52 | CARDIOLOGY PROGRESS NOTE ---
DATE: 06/08/2016 This afternoon, Mr. Carmichael was somewhat agitated but did not complain of any significant palpitations or chest discomfort. He has mild breathing difficulty and complains primarily of pain in his lower extremities. PHYSICAL EXAMINATION: GENERAL: He was alert. He was oriented. He answered all questions appropriately. CURRENT VITAL SIGNS: Include blood pressure 138/87 with pulse of 84. LUNGS: Auscultation of his lung apices reveal them to be clear but he did have some upper airway sounds. CARDIAC EXAMINATION: Revealed him to be in an irregularly irregular rhythm. LABORATORY STUDIES: Obtained today include a white cell count of 14.7, hemoglobin was 8.3, platelet count was 412. Sodium was 133, potassium was 4.2, BUN was 35, creatinine was 6.3. ASSESSMENT AND PLAN: Atrial flutter. The patient appears to have reasonable rate control, although he has been fairly sedentary during this hospitalization. He has had his metoprolol XL increased to 75 mg a day and I think we can simply continue this and monitor his response. As previously noted, anticoagulation should be initiated at some point when it is deemed appropriate by the primary service. Warfarin would seem to be the preferred agent in his case. Once the patient's clinical condition improves, he can be evaluated as an outpatient for possible cardioversion.
--- NOTE | 2016-06-08 19:14 | Progress Note ---
Subjective Date of Service: Jun 08, 2016. Subjective Pt evaluation today including: conversation w/ patient, chart review, lab review, review of studies patient seen in ICU at bedside, dressing change today, right foot stable and continues to improve. Right foot still swollen but erythema otherwise much improved. Patient was feeling OK, not great. Did state he was staying off his foot while in the ICU and this was helpful to his right foot ulcer. Problem List Medical Problems: (1) Cellulitis of right foot Status: Acute (2) Sepsis Status: Acute Objective Vital Signs Date Time Temp Pulse Resp B/P Pulse Ox O2 Delivery O2 Flow Rate FiO2 06/08/16 16:00 94 Room Air 06/08/16 16:00 36.4 76 16 126/94 94 Room Air 06/08/16 14:00 84 16 138/87 92 Room Air 06/08/16 12:00 93 Room Air 06/08/16 12:00 36.5 70 16 165/63 93 Room Air 06/08/16 10:00 36.8 69 16 146/70 93 Room Air 06/08/16 08:00 93 Room Air 06/08/16 08:00 36.6 94 14 164/60 06/08/16 06:00 75 17 Room Air 06/08/16 04:00 36.8 80 18 147/67 93 Room Air 06/08/16 04:00 Room Air 06/08/16 02:00 69 17 93 Room Air 06/08/16 00:01 36.6 70 16 148/87 93 Room Air 06/07/16 23:59 Room Air 06/07/16 22:00 70 17 95 Room Air 06/07/16 20:00 36.9 105 20 128/89 95 Nasal Cannula 3.0 06/07/16 20:00 95 Nasal Cannula 3.0 Physical Exam Skin: + pertinent finding (right foot - dressings removed, improved erythema, swelling still present but within normal limits, some pain noted to the right foot; ulcer at plantar lateral foot stable, dorsal lateral incision healing with distal area open from packing that was removed from the area on Tuesday, no purulent drainage expressible) Laboratory Results Last 24 Hours Test 06/07/16 21:07 06/08/16 00:11 06/08/16 04:55 06/08/16 09:31 Bedside Glucose 163 mg/dl 246 mg/dl White Blood Count 14.77 K/uL Red Blood Count 2.74 M/uL Hemoglobin 8.3 g/dL Hematocrit 25.2 % Mean Corpuscular Volume 92.0 fL Mean Corpuscular Hemoglobin 30.3 pg Mean Corpuscular Hemoglobin Concent 32.9 g/dl Platelet Count 412 K/uL Mean Platelet Volume 8.1 fL Neutrophils (%) (Auto) 70.3 % Lymphocytes (%) (Auto) 15.5 % Monocytes (%) (Auto) 9.3 % Eosinophils (%) (Auto) 3.9 % Basophils (%) (Auto) 0.3 % Neutrophils # (Auto) 10.37 K/uL Lymphocytes # (Auto) 2.29 K/uL Monocytes # (Auto) 1.37 K/uL Eosinophils # (Auto) 0.58 K/uL Basophils # (Auto) 0.05 K/uL RDW Standard Deviation 47.2 fL RDW Coefficient of Variation 14.1 % Immature Granulocyte % (Auto) 0.7 % Immature Granulocyte # (Auto) 0.11 K/uL Anisocytosis PRESENT Sodium Level 133 mmol/L Potassium Level 4.2 mmol/L Chloride Level 95 mmol/L Carbon Dioxide Level 30 mmol/L Anion Gap 8.0 mmol/L Blood Urea Nitrogen 35 mg/dl Creatinine 6.30 mg/dl Est Creatinine Clear Calc Drug Dose 13.6 ml/min Estimated GFR () 9.2 Estimated GFR (Non- 8.0 BUN/Creatinine Ratio 5.5 Random Glucose 153 mg/dl Calcium Level 8.5 mg/dl Random Vancomycin Level 19.3 mcg/ml Digoxin Level 0.7 ng/ml Procalcitonin 18.87 ng/ml Test 06/08/16 11:27 06/08/16 15:36 Bedside Glucose 176 mg/dl 238 mg/dl Prothrombin Time 11.0 SECONDS Prothromb Time International Ratio 1.0 Activated Partial Thromboplast Time 26.8 SECONDS Partial Thromboplastin Ratio 1.0 Assessment and Plan 1. right foot POD 5 - I and D, 5th metatarsal head resection, ulcer debridement - improved erythema, 5th digit swelling somewhat improved, WBC slightly higher today, post xrays stable and show 5th metatarsal head resection ; right foot dressing changed today, foot improving, continue to elevate right foot with pillow and recommend partial weightbearing at this time time, appreciate ID recs , pathology stating acute osteomyelitis right 5th metatarsal head Continued [facility] stay due to: multiple IV medications needed Discharge planning: uncertain
--- NOTE | 2016-06-08 20:31 | Critical Care Consultation ---
Critical Care Consultation Date of Consultation: Jun 07, 2016. Attending Physician: Kentrell Suárez M.D. 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 In the morning of 06/07/2016 the patient was found to be hypoxic, in atrial fibrillation with RVR. Possible pulmonary edema secondary to end-stage renal disease. Limited bedside ultrasound revealed tight B profile bilaterally consistent with pulmonary edema, a limited to point compression test was also negative for acute DVT. The patient had just returned from a CT scan of the chest to rule out pulmonary embolism. Past Medical/Surgical History Chronic kidney disease stage III gout history of Clostridium differential seal infection Family History FH: diabetes mellitus AUNT FH: stroke GRANDMOTHER Social History Smoking Status: Former Smoker Drug Use: none Marital Status: Housing Status: lives with family Occupation Status: retired Allergies Coded Allergies: No Known Allergies (Verified , 06/02/16) Home Medications Scheduled Allopurinol (Zyloprim), 1 TAB PO HS Amlodipine (Norvasc), 5 MG PO QAM Aspirin (Aspir-81), 1 TAB PO QAM Atorvastatin (Atorvastatin Calcium), 1 TAB PO DAILY Calcium Acetate (Phosphate Bin (Phoslo 667 Mg), 1 CAP PO TID Cholecalciferol (Vitamin D3), 1 CAP PO DAILY Furosemide (Furosemide), 1 TAB PO DAILY Insulin Aspart (Novolog Penfill), 60 UNITS SQ BID Insulin Detemir (Levemir), 80 UNITS SC HS Metoprolol Succ (Toprol Xl) (Toprol-Xl), 50 MG PO QAM Ranitidine Hcl (Zantac), 1 TAB PO DAILY Sodium Bicarbonate (Sodium Bicarbonate), 1 TAB PO BID Tamsulosin HCl (Tamsulosin HCl), 1 CAP PO HS Scheduled PRN Ipratropium [place] (Atrovent Hfa), 2 PUFFS INH QID PRN for Shortness of Breath Ipratropium-Albuterol (Duoneb), 1 TREATMENT INH Q4H PRN for Shortness of Breath Meclizine HCl (Meclizine HCl), 1 TAB PO Q4H PRN for Dizziness or Vertigo Trazodone HCl (Trazodone HCl), 1 TAB PO DAILY PRN for Pain Current Inpatient Medications Current Inpatient Medications Medications (Trade) Dose Ordered Sig/Eliseo Route Start Time Stop Time Status Last Admin Dose Admin Heparin Sodium (Porcine) (Heparin Sq 5000 Unit/0.5ml) 5,000 unit Q8 SQ 06/02/16 22:00 07/02/16 21:59 06/07/16 21:29 5,000 UNIT Polyethylene (Miralax Powder Packet) 17 gm DAILY PO 06/03/16 08:00 07/03/16 08:59 06/08/16 07:32 17 GM Allopurinol (Zyloprim Tab) 100 mg HS PO 06/02/16 21:00 07/02/16 20:59 06/07/16 19:55 100 MG Amlodipine Besylate (Norvasc Tab) 5 mg QAM PO 06/03/16 08:00 07/03/16 08:59 Future Hold 06/03/16 08:26 5 MG Aspirin (Ecotrin Tab) 81 mg QAM PO 06/03/16 08:00 07/03/16 08:59 06/08/16 07:31 81 MG Atorvastatin Calcium (Lipitor Tab) 20 mg DAILY PO 06/03/16 08:00 07/03/16 08:59 06/08/16 07:33 20 MG Calcium Acetate (Phoslo Cap) 667 mg TIDM PO 06/02/16 17:00 07/02/16 16:59 06/08/16 16:46 667 MG Furosemide (Lasix Tab) 40 mg DAILY PO 06/03/16 08:00 07/03/16 08:59 06/08/16 07:33 40 MG Ipratropium [place] (Atrovent Hfa Inhaler) 2 puffs QID PRN INH 06/02/16 12:30 07/02/16 12:29 Albuterol/ Ipratropium (Duoneb) 3 ml Q4H PRN INH 06/02/16 12:30 07/02/16 12:29 Meclizine HCl (Antivert Tab) 25 mg Q4H PRN PO 06/02/16 12:30 07/02/16 12:29 Tamsulosin HCl (Flomax Cap) 0.4 mg HS PO 06/02/16 21:00 07/02/16 20:59 06/07/16 19:55 0.4 MG Cholecalciferol (Vitamin D Tab) 2,000 inter.unit QAM PO 06/03/16 08:00 07/03/16 08:59 06/08/16 07:33 2,000 INTER.UNIT Insulin Detemir (Levemir Flexpen/ FlexTouch) 80 unit HS SC 06/02/16 21:00 07/02/16 20:59 06/06/16 21:03 60 UNIT Ranitidine HCl (zANTac TAB) 300 mg QAM PO 06/03/16 08:00 07/03/16 08:59 06/08/16 07:34 300 MG Oxycodone/ Acetaminophen 1 tab 1 tab Q4H PRN PO 06/02/16 12:30 06/16/16 12:29 06/08/16 04:25 1 TAB Piperacillin Sod/ Tazobactam Sod/ Dextrose (Zosyn Iv/D5 100ml) 120 ml @ 30 mls/hr Q12H IV 06/02/16 20:00 07/14/16 19:59 06/08/16 19:33 30 MLS/HR Piperacillin Sod/ Tazobactam Sod (Consult) 1 ea UD PRN N/A 06/02/16 15:00 07/02/16 14:59 Vancomycin HCl (Consult) 1 ea UD PRN N/A 06/02/16 15:00 07/02/16 14:59 Glucose (Glucose 40% Gel) 15-30 GRAMS 15 GRAMS... UD PRN PO 06/02/16 17:00 07/02/16 16:59 Glucose (Glucose Chew Tab) 4-8 Tablets 4 Tabl... UD PRN PO 06/02/16 17:00 07/02/16 16:59 Dextrose (Dextrose 50% 50ML Syringe) 25-50ML OF 50% DW IV FOR... UD PRN IV 06/02/16 17:00 07/02/16 16:59 Glucagon (Glucagon Inj) 1 mg UD PRN SQ 06/02/16 17:00 07/02/16 16:59 Insulin Aspart (novoLOG ASPART) SLIDING SCALE If C... ACHS SC 06/02/16 21:00 07/02/16 20:59 06/08/16 12:16 1 UNITS Acetaminophen (Tylenol Tab) 650 mg Q4H PRN PO 06/03/16 14:30 07/03/16 14:29 06/07/16 10:52 650 MG Al Hydrox/Mg Hydrox/Simethicone (Maalox Max Susp) 15 ml Q4H PRN PO 06/03/16 14:30 07/03/16 14:29 06/06/16 21:05 15 ML Magnesium Hydroxide (Milk Of Magnesia Susp) 30 ml Q12H PRN PO 06/03/16 14:30 07/03/16 14:29 Ondansetron HCl (Zofran Inj) 4 mg Q6H PRN IV 06/03/16 14:30 07/03/16 14:29 06/05/16 15:11 4 MG Oxycodone/ Acetaminophen (Percocet 5-325mg Tab) 2 tab Q4H PRN PO 06/03/16 14:30 06/17/16 14:29 Metoclopramide HCl (Reglan Inj) 5 mg Q6H PRN IV 06/03/16 14:30 07/03/16 14:29 06/05/16 17:22 5 MG Trazodone HCl (Desyrel Tab) 100 mg HS PO 06/05/16 21:00 07/05/16 20:59 06/07/16 19:55 100 MG Chlordiazepoxide (Librium Cap) 10 mg BID PO 06/06/16 09:00 07/06/16 08:59 06/08/16 07:35 10 MG Trazodone HCl (Desyrel Tab) 25 mg HS PO 06/05/16 21:00 07/05/16 20:59 06/07/16 19:57 25 MG Metoprolol Tartrate (Lopressor Iv) 2.5 mg Q6H PRN IV 06/07/16 10:30 07/07/16 10:29 06/07/16 12:58 2.5 MG Metoprolol Succinate 75 mg 75 mg QAM PO 06/08/16 09:00 07/08/16 08:59 06/08/16 07:32 75 MG Vancomycin HCl 750 mg/Sodium Chloride 265 ml @ 125 mls/hr TODAY@1600 IV 06/09/16 16:00 06/09/16 23:59 Azithromycin 250 mg/Dextrose 252.5 ml @ 125 mls/hr DAILY@0900 IV 06/09/16 09:00 06/15/16 08:59 Heparin Sodium/ Dextrose (Heparin 25,000 Unit/500ml D5W) 500 ml @ 33 mls/hr [id number] PRN IV 06/08/16 15:05 07/08/16 15:04 06/08/16 16:48 33 MLS/HR Review of Systems Respiratory: + cough, + sputum Cardiovascular: + orthopnea Physical Exam Date Time Temp Pulse Resp B/P Pulse Ox O2 Delivery O2 Flow Rate FiO2 06/08/16 20:00 95 Room Air 06/08/16 16:00 94 Room Air 06/08/16 16:00 36.4 76 16 126/94 94 Room Air 06/08/16 14:00 84 16 138/87 92 Room Air 06/08/16 12:00 93 Room Air 06/08/16 12:00 36.5 70 16 165/63 93 Room Air 06/08/16 10:00 36.8 69 16 146/70 93 Room Air 06/08/16 08:00 93 Room Air 06/08/16 08:00 36.6 94 14 164/60 06/08/16 06:00 75 17 Room Air 06/08/16 04:00 36.8 80 18 147/67 93 Room Air 06/08/16 04:00 Room Air 06/08/16 02:00 69 17 93 Room Air 06/08/16 00:01 36.6 70 16 148/87 93 Room Air 06/07/16 23:59 Room Air 06/07/16 22:00 70 17 95 Room Air General Appearance: mild distress Head: normocephalic, atraumatic Neck: no tenderness, trachea midline, no stridor Respiratory: no tenderness, rhonchi (bilaterally) Cardiovasular: irregular rate, abnormal rhythm (tachycardia) Abdomen: non tender Back: normal inspection Laboratory Results Last 24 Hours Test 06/07/16 21:07 06/08/16 00:11 06/08/16 04:55 06/08/16 09:31 Bedside Glucose 163 mg/dl 246 mg/dl White Blood Count 14.77 K/uL Red Blood Count 2.74 M/uL Hemoglobin 8.3 g/dL Hematocrit 25.2 % Mean Corpuscular Volume 92.0 fL Mean Corpuscular Hemoglobin 30.3 pg Mean Corpuscular Hemoglobin Concent 32.9 g/dl Platelet Count 412 K/uL Mean Platelet Volume 8.1 fL Neutrophils (%) (Auto) 70.3 % Lymphocytes (%) (Auto) 15.5 % Monocytes (%) (Auto) 9.3 % Eosinophils (%) (Auto) 3.9 % Basophils (%) (Auto) 0.3 % Neutrophils # (Auto) 10.37 K/uL Lymphocytes # (Auto) 2.29 K/uL Monocytes # (Auto) 1.37 K/uL Eosinophils # (Auto) 0.58 K/uL Basophils # (Auto) 0.05 K/uL RDW Standard Deviation 47.2 fL RDW Coefficient of Variation 14.1 % Immature Granulocyte % (Auto) 0.7 % Immature Granulocyte # (Auto) 0.11 K/uL Anisocytosis PRESENT Sodium Level 133 mmol/L Potassium Level 4.2 mmol/L Chloride Level 95 mmol/L Carbon Dioxide Level 30 mmol/L Anion Gap 8.0 mmol/L Blood Urea Nitrogen 35 mg/dl Creatinine 6.30 mg/dl Est Creatinine Clear Calc Drug Dose 13.6 ml/min Estimated GFR () 9.2 Estimated GFR (Non- 8.0 BUN/Creatinine Ratio 5.5 Random Glucose 153 mg/dl Calcium Level 8.5 mg/dl Random Vancomycin Level 19.3 mcg/ml Digoxin Level 0.7 ng/ml Procalcitonin 18.87 ng/ml Test 06/08/16 11:27 06/08/16 15:36 Bedside Glucose 176 mg/dl 238 mg/dl Prothrombin Time 11.0 SECONDS Prothromb Time International Ratio 1.0 Activated Partial Thromboplast Time 26.8 SECONDS Partial Thromboplastin Ratio 1.0 Diagnostic Results CLINICAL HISTORY: Hypoxia. COMPARISON STUDY: Chest radiograph June 07, [address] December 24, 2014. TECHNIQUE: Following IV administration of 94 mL of Optiray-320, helical axial images of the chest were obtained utilizing the pulmonary embolus protocol. Maximal intensity projections and sagittal and coronal reformats were viewed on an independent 3D workstation. IV contrast was administered without complication. CT DOSE: 2045.73 mGy.cm FINDINGS: No pulmonary emboli are identified although the segmental and subsegmental pulmonary arteries are suboptimally assessed due to respiratory motion. The heart is mildly enlarged. There is no pericardial effusion. There is no evidence of thoracic aortic dissection. No enlarged thoracic lymph nodes are noted. There is extensive right upper, right middle lobe and right lower lobe consolidation. There is no cavitation. The lungs are suboptimally assessed due to respiratory motion. There is mild emphysema. Central airways are patent. Bony thorax and upper abdomen are unremarkable. IMPRESSION: 1. No pulmonary emboli identified although the segmental and subsegmental pulmonary arteries are suboptimally assessed due to respiratory motion. 2. Extensive right lung consolidation consistent with pneumonia. A follow-up chest CT in 2 months to ensure resolution is recommended. 3. Mild to moderate emphysema. RIGHT THIGH CT CT DOSE: HISTORY: right thigh swelling and tenderness Right TECHNIQUE: Multiaxial CT images of the right thigh were performed and reformatted in the sagittal and coronal plane without the use of contrast. COMPARISON: Right thigh MRI 04/14/2016. FINDINGS: No change in size of the 24 x 13 x 10 cm primarily fatty mass within the right thigh musculature. This is located within the vastus intermedius/medialis muscles. There are few small focal areas of soft tissue nodularity seen within the mass. Dominant soft tissue nodule seen along the inferior aspect measures 1.6 cm. This lesions abuts the anterior aspect of the midshaft of the right femur. However, there is no cortical destruction identified. No loculated fluid collections. No fractures within the right femur. IMPRESSION: No change in the 24 x 13 x 10 cm intramuscular fatty mass within the right anterior thigh. This contains a few small focal areas of soft tissue nodularity. Therefore, a liposarcoma remains the diagnosis of exclusion. Surgical consultation is recommended. Assessment & Plan Reason Critically Ill: Acute hypoxic respiratory failure PLAN: Neuro: CAM ICU negative Resp: Noninvasive ventilation until dialysis, possible aspiration pneumonia CV: Increase metoprolol to 75 mg twice a day Fluids/Renal: Dialysis today ID: Infectious disease following, awaiting formal blood cultures GI/Nutrition: Nothing by mouth until seen by speech therapy for possible aspiration pneumonia Heme: Heparin prophylaxis 3 times a day Endocrine: Patient refusing or modifying his insulin regimen A lower extremity CT scan of the right thigh was undertaken to exclude myositis. Findings noted may require outpatient follow-up as liposarcoma is still within the differential I have personally spent 40 minutes of critical care time in the direct management of this patient. This is a life/limb threatening event. This includes time spent evaluating patient, direct bedside care, chart review, placing orders, interpretation of diagnostic studies, discussion with consultants, patient, and family members, as well as other required patient management activities. This time is exclusive of all separately billable procedures, and teaching time and separate from and in addition to any other critical care service time.
[2016-06-08] MEDS: ALLOPURINOL 100 MG TAB PO SCH (22:37)
[2016-06-08] MEDS: TRAZODONE HCL 100 MG TAB PO SCH (22:38)
[2016-06-08] MEDS: TAMSULOSIN HCL 0.4 MG CAP PO SCH (22:38)
[2016-06-08] MEDS: TRAZODONE HCL 50 MG TAB PO SCH (22:38)
[2016-06-08] MEDS: INSULIN DETEMIR FLEXPEN/FLEX TOUCH 100 UNITS/ML 3ML SC SCH (22:43)
[2016-06-08] MEDS: METOPROLOL TARTRATE 1 MG/ML VIAL IV PRN (23:01)
[2016-06-08 23:26] LABS: PARTIAL THROMBOPLASTIN RATIO 1.3
[2016-06-09] VITALS (30 sets, daily range): BP systolic 85–214; BP diastolic 40–87; PULSE 72–86; TEMP 36.4–36.7; O2SAT 93–96; BMI 33.4
[2016-06-09] MEDS ORDERED: HEPARIN IV BOLUS 7,000 UNIT in SYRINGE 0 ML IV ONE (03:15)
[2016-06-09] MEDS: HEPARIN 25,000 UNIT/500ML D5W 500 ML IV PRN ×3 (04:00→21:02)
[2016-06-09 06:53] LABS: PARTIAL THROMBOPLASTIN RATIO 2.6
[2016-06-09] MEDS: OXYCODONE/ACETAMINOPHEN 5-325 TAB PO PRN ×2 (07:47→18:35)
[2016-06-09] MEDS: CALCIUM ACETATE 667MG GELCAP PO SCH ×3 (07:47→16:10)
[2016-06-09] MEDS: ASPIRIN 81 MG ECTAB PO SCH (07:47)
[2016-06-09] MEDS: METOPROLOL SUCC 25MG EXT REL TAB PO SCH (07:48)
[2016-06-09] MEDS: CHOLECALCIFEROL 1000 INTER.UNIT TAB PO SCH (07:49)
[2016-06-09] MEDS: RANITIDINE HCL 150 MG TAB PO SCH (07:49)
[2016-06-09] MEDS: ATORVASTATIN 20 MG TAB PO SCH (07:50)
[2016-06-09] MEDS: POLYETHYLENE (MIRALAX) 17 GM PACK PO SCH (07:50)
[2016-06-09] MEDS: FUROSEMIDE 40 MG TAB PO SCH (07:50)
[2016-06-09] MEDS: INSULIN ASPART 100 UNITS/ML 3 ML PEN SC SCH ×4 (07:57→21:01)
[2016-06-09] MEDS: AZITHROMYCIN IV 250 MG in DEXTROSE 5% 250ML 250 ML IV SCH (08:11)
[2016-06-09] MEDS: PIPERACILL/TAZOBAC IV 4.5 GM in DEXTROSE 5% 100ML 100 ML IV SCH ×2 (08:18→20:51)
[2016-06-09] MEDS: CHLORDIAZEPOXIDE 10 MG CAP PO SCH ×2 (09:00→21:02)
--- NOTE | 2016-06-09 09:16 | Progress Note ---
Progress Note Date of Service Jun 09, 2016. Progress Note Pt tentatively scheduled for LUE fistulagram with intervention on TUESDAY, 06/14, in OR. IF pt d/c prior to that, we can schedule as outpt.
--- NOTE | 2016-06-09 09:40 | CARDIOLOGY PROGRESS NOTE ---
DATE: 06/09/2016 DATE: 06/09/2016. SUBJECTIVE: This morning, the patient was alert and eating breakfast. When asked questions he gave fairly standard responses. When I asked how he was feeling he mentioned "it is what it is". When I asked him about foot pain he stated "which foot" and then some fairly general answers to questions afterwards. He did not report any significant breathing difficulty. He did report some dizziness that may be present when he ambulates. PHYSICAL EXAMINATION: VITAL SIGNS: Included a current blood pressure of 153/87 and pulse of 72. LUNGS: On auscultation of his lung apices revealed them to be clear. There were crackles at the bases bilaterally however, no expiratory wheezing. CARDIAC EXAMINATION: Revealed him to be in an irregular rhythm without murmurs. LABORATORY STUDIES: Still pending for this morning. Review of the patient's telemetry reveals atrial flutter with variable conduction and relatively controlled heart rates. ASSESSMENT AND PLAN: Atrial flutter. Overall, the patient's heart rates appeared to be adequate on his current dose of beta magdalene. What is unclear is whether he will have a significantly higher responses with ambulation or activity. He is still relatively immobile. At this point, I would continue his current dose of Toprol XL and monitor his rates. Calcium channel blockers could be employed if necessary as his echocardiogram revealed preserved left ventricular systolic function. Once again, the patient should undergo systemic anticoagulation. He is currently on heparin, which could be transitioned to warfarin upon discharge.
--- NOTE | 2016-06-09 11:18 | Progress Note ---
Subjective Date of Service: Jun 09, 2016. Subjective Pt evaluation today including: conversation w/ patient, physical exam, chart review Problem List Medical Problems: (1) Cellulitis of right foot Status: Acute (2) Sepsis Status: Acute Medications Medications (Trade) Dose Ordered Sig/Eliseo Route Start Time Stop Time Status Last Admin Dose Admin Metoprolol Succinate 75 mg 75 mg QAM PO 06/08/16 09:00 07/08/16 08:59 06/08/16 07:32 75 MG Azithromycin 500 mg/Dextrose 255 ml @ 125 mls/hr 1100 ONCE IV 06/08/16 11:00 06/08/16 13:02 DC 06/08/16 12:10 125 MLS/HR Heparin Sodium/ Dextrose 500 ml @ 40 mls/hr [id number] PRN IV 06/08/16 15:05 07/08/16 15:04 06/09/16 04:00 40 MLS/HR Heparin Sodium (Porcine) 7000 unit/Syringe 7 ml @ 1 mls/min TODAY@1530 ONCE IV 06/08/16 15:30 06/08/16 15:36 DC 06/08/16 16:48 1 MLS/MIN Heparin Sodium (Porcine)/Syringe (Heparin Iv Bolus/Syringe) 7 ml @ 10 mls/min NOW ONCE IV 06/09/16 03:15 06/09/16 03:16 DC 06/09/16 03:59 10 MLS/MIN Objective Vital Signs Date Time Temp Pulse Resp B/P Pulse Ox O2 Delivery O2 Flow Rate FiO2 06/09/16 04:00 94 Room Air 06/09/16 04:00 36.7 72 18 153/87 94 Room Air 06/09/16 02:00 79 11 152/79 Room Air 06/08/16 23:59 72 17 150/82 94 Room Air 06/08/16 23:59 94 Room Air 06/08/16 23:01 102 198/74 06/08/16 22:50 36.6 84 19 198/74 95 Room Air 06/08/16 20:00 95 Room Air 06/08/16 20:00 36.7 72 16 166/80 95 Room Air 06/08/16 16:00 94 Room Air 06/08/16 16:00 36.4 76 16 126/94 94 Room Air 06/08/16 14:00 84 16 138/87 92 Room Air 06/08/16 12:00 93 Room Air 06/08/16 12:00 36.5 70 16 165/63 93 Room Air 06/08/16 10:00 36.8 69 16 146/70 93 Room Air 06/08/16 08:00 93 Room Air 06/08/16 08:00 36.6 94 14 164/60 Laboratory Results Last 24 Hours Test 06/08/16 09:31 06/08/16 11:27 06/08/16 15:36 06/08/16 22:35 Procalcitonin 18.87 ng/ml Bedside Glucose 176 mg/dl 238 mg/dl 301 mg/dl Prothrombin Time 11.0 SECONDS Prothromb Time International Ratio 1.0 Activated Partial Thromboplast Time 26.8 SECONDS Partial Thromboplastin Ratio 1.0 Test 06/08/16 23:05 06/09/16 05:54 Activated Partial Thromboplast Time 33.7 SECONDS 66.9 SECONDS Partial Thromboplastin Ratio 1.3 2.6 Interpretation Summary * Name: GUILLERMO MARTINEZ Study Date: 06/08/2016 08:40 AM BP: 138/52 mmHg * [place] [facility] [place]\S\1 HR: 93 * : 1940 (M/d/yyyy) Gender: Male Height: 73 in * Age: 75 yrs Ethnicity: [place] Weight: 251 lb * Ordering Physician: Jacque Stanton * Referring Physician: Self, Referred * Performed By: Joycelyn Morales RCS * * Reason For Study: A-FLUTTER * BSA: 2.4 m2 * -- Conclusions -- * 1. Normal LV size. Moderate concentric LVH. * 2. Normal LV systolic function. LVEF 65-70%. No regional wall motion abnormalities. * 3. Normal RV size and function. * 4. No significant valvular pathology. * 5. Normal estimated CVP. * 6. Moderate left atrial enlargement * 7. No prior studies for comparison. Assessment and Plan 75 M with diabetic foot infection at site of chronic wound, surgical debridement, dialysis, PMHx of DM II, HTN, Hyperlipidemia, COPD, ESRD on HD m/ w/f, gout, RLE diabetic foot infection/Cellulitis Possible osteomyelitis RLE R plantar surface of the 5th toe wound gram positives on culture, ID changed to clindamycin, but also yet to be identified Gram negative - Dr. Hart consult surgical debridement 06/03 and remains open, will have wound care eval to see best dressing for healing for secondary intent Afib/flutter. Rate controlled on tele. Appreciate Cards input. Will start pt on formal anti coagulation. Will start Warfarin and overlap with heparin gtt. Echo results noted. Hypoxia. Improved. CXR and CT chest shows RLL PNA. IV antibiotics as per ID and Pulm. CT chest was neg for PE. Swallowing eval pending to rule out aspiration. ESRD on HD- Nephrology,Chronic but stable m/w/f. fistulae was eval by Doppler, stenosis suggested, Dr Cabral to address Fistulogram cancelled due to a.flutter with RVR. Fistulogram to be pursued as OP. left leg pain, doppler suggests chronic DVT, no acute treatment, left foot shows no avulsion fracture COPD- stable on inhaled medicines, not on continuous oxygen yet Constipation mirilax and dulcolax supp. HTN seems stable on current meds anxiety, librium and hs seroquel Hyperlipidemia: atorvastatin 20 mg daily GERDcontinues with no complaints ranitidine 150 mg HS DVT ppx: Teds, scds, heparin sq CODE STATUS: FULL CODE Continued [facility] stay due to: multiple IV medications needed Discharge planning: uncertain
--- NOTE | 2016-06-09 11:43 | Nephrology Progress Note ---
Nephrology Progress Note Date of Service Jun 09, 2016. Chief Complaint Follow-up for end-stage renal disease on hemodialysis. Donna Díaz was seen and examined in his room this morning. overall he continues to feel poorly. Heart rate seems to be controlled, in a flutter, currently on heparin and metoprolol. Currently getting dialysis as his regular schedule, tolerating well. Blood pressure stable. Diarrhea seems to be improving just had 1 bowel movement this morning. Review of Systems A complete review of systems was performed. Pertinent positives are noted above. All other systems are negative. Vital Signs Last 8 Hrs Date Time Temp Pulse Resp B/P Pulse Ox O2 Delivery O2 Flow Rate FiO2 06/09/16 04:00 94 Room Air 06/09/16 04:00 36.7 72 18 153/87 94 Room Air 06/09/16 02:00 79 11 152/79 Room Air I & O 24-Hour Column 06/09/16 08:00 Intake Total 1631 ml Balance 1631 ml Last Recorded Weight Weight (Kilograms): 111.300 Physical Exam GENERAL: Elderly male, AAA x 3, ill appearing, not in any distress. NECK: Supple, no JVD. RESPIRATORY: Normal breathing efforts, no accessory muscle use, clear to auscultation bilaterally, no wheezes or rales. CARDIOVASCULAR: S1, S2 normal, rhythm irregular. EXTREMITY: right foot in dressing, with 1+ edema NEURO: speech fluent. PSYCHIATRY: Normal mood and judgment Family History FH: diabetes mellitus AUNT FH: stroke GRANDMOTHER Negative for CKD / ESRD Social History Smoking Status: Unknown if ever smoked Drug Use: none Marital Status: Housing Status: lives with family Occupation: retired . Retired. Former smoker (2ppd x 45 years, quit 2002) Laboratory Results Past 24 Hours Test 06/08/16 09:31 06/08/16 11:27 06/08/16 15:36 06/08/16 22:35 Procalcitonin 18.87 ng/ml (0-0.5) Bedside Glucose 176 mg/dl (70-99) 238 mg/dl (70-99) 301 mg/dl (70-99) Prothrombin Time 11.0 SECONDS (9.0-12.0) Prothromb Time International Ratio 1.0 (0.9-1.1) Activated Partial Thromboplast Time 26.8 SECONDS (21.0-31.0) Partial Thromboplastin Ratio 1.0 Test 06/08/16 23:05 06/09/16 05:54 06/09/16 08:00 Activated Partial Thromboplast Time 33.7 SECONDS (21.0-31.0) 66.9 SECONDS (21.0-31.0) Partial Thromboplastin Ratio 1.3 2.6 Allergies Coded Allergies: No Known Allergies (Verified , 06/02/16) Medications Current Inpatient Medications Medications (Trade) Dose Ordered Sig/Eliseo Route Start Time Stop Time Status Last Admin Dose Admin Polyethylene (Miralax Powder Packet) 17 gm DAILY PO 06/03/16 08:00 07/03/16 08:59 06/09/16 07:50 17 GM Allopurinol (Zyloprim Tab) 100 mg HS PO 06/02/16 21:00 07/02/16 20:59 06/08/16 22:37 100 MG Amlodipine Besylate (Norvasc Tab) 5 mg QAM PO 06/03/16 08:00 07/03/16 08:59 Future Hold 06/03/16 08:26 5 MG Aspirin (Ecotrin Tab) 81 mg QAM PO 06/03/16 08:00 07/03/16 08:59 06/09/16 07:47 81 MG Atorvastatin Calcium (Lipitor Tab) 20 mg DAILY PO 06/03/16 08:00 07/03/16 08:59 06/09/16 07:50 20 MG Calcium Acetate (Phoslo Cap) 667 mg TIDM PO 06/02/16 17:00 07/02/16 16:59 06/09/16 07:47 667 MG Furosemide (Lasix Tab) 40 mg DAILY PO 06/03/16 08:00 07/03/16 08:59 06/09/16 07:50 40 MG Ipratropium [place] (Atrovent Hfa Inhaler) 2 puffs QID PRN INH 06/02/16 12:30 07/02/16 12:29 Albuterol/ Ipratropium (Duoneb) 3 ml Q4H PRN INH 06/02/16 12:30 07/02/16 12:29 Meclizine HCl (Antivert Tab) 25 mg Q4H PRN PO 06/02/16 12:30 07/02/16 12:29 Tamsulosin HCl (Flomax Cap) 0.4 mg HS PO 06/02/16 21:00 07/02/16 20:59 06/08/16 22:38 0.4 MG Cholecalciferol (Vitamin D Tab) 2,000 inter.unit QAM PO 06/03/16 08:00 07/03/16 08:59 06/09/16 07:49 2,000 INTER.UNIT Insulin Detemir (Levemir Flexpen/ FlexTouch) 80 unit HS SC 06/02/16 21:00 07/02/16 20:59 06/08/16 22:43 80 UNIT Ranitidine HCl (zANTac TAB) 300 mg QAM PO 06/03/16 08:00 07/03/16 08:59 06/09/16 07:49 300 MG Oxycodone/ Acetaminophen 1 tab 1 tab Q4H PRN PO 06/02/16 12:30 06/16/16 12:29 06/09/16 07:47 1 TAB Piperacillin Sod/ Tazobactam Sod/ Dextrose (Zosyn Iv/D5 100ml) 120 ml @ 30 mls/hr Q12H IV 06/02/16 20:00 07/14/16 19:59 06/09/16 08:18 30 MLS/HR Piperacillin Sod/ Tazobactam Sod (Consult) 1 ea UD PRN N/A 06/02/16 15:00 07/02/16 14:59 Vancomycin HCl (Consult) 1 ea UD PRN N/A 06/02/16 15:00 07/02/16 14:59 Glucose (Glucose 40% Gel) 15-30 GRAMS 15 GRAMS... UD PRN PO 06/02/16 17:00 07/02/16 16:59 Glucose (Glucose Chew Tab) 4-8 Tablets 4 Tabl... UD PRN PO 06/02/16 17:00 07/02/16 16:59 Dextrose (Dextrose 50% 50ML Syringe) 25-50ML OF 50% DW IV FOR... UD PRN IV 06/02/16 17:00 07/02/16 16:59 Glucagon (Glucagon Inj) 1 mg UD PRN SQ 06/02/16 17:00 07/02/16 16:59 Insulin Aspart (novoLOG ASPART) SLIDING SCALE If C... ACHS SC 06/02/16 21:00 07/02/16 20:59 06/09/16 07:57 13 UNITS Acetaminophen (Tylenol Tab) 650 mg Q4H PRN PO 06/03/16 14:30 07/03/16 14:29 06/07/16 10:52 650 MG Al Hydrox/Mg Hydrox/Simethicone (Maalox Max Susp) 15 ml Q4H PRN PO 06/03/16 14:30 07/03/16 14:29 06/06/16 21:05 15 ML Magnesium Hydroxide (Milk Of Magnesia Susp) 30 ml Q12H PRN PO 06/03/16 14:30 07/03/16 14:29 Ondansetron HCl (Zofran Inj) 4 mg Q6H PRN IV 06/03/16 14:30 07/03/16 14:29 06/05/16 15:11 4 MG Oxycodone/ Acetaminophen (Percocet 5-325mg Tab) 2 tab Q4H PRN PO 06/03/16 14:30 06/17/16 14:29 06/08/16 23:00 2 TAB Metoclopramide HCl (Reglan Inj) 5 mg Q6H PRN IV 06/03/16 14:30 07/03/16 14:29 06/05/16 17:22 5 MG Trazodone HCl (Desyrel Tab) 100 mg HS PO 06/05/16 21:00 07/05/16 20:59 06/08/16 22:38 100 MG Chlordiazepoxide (Librium Cap) 10 mg BID PO 06/06/16 09:00 07/06/16 08:59 06/08/16 22:41 10 MG Trazodone HCl (Desyrel Tab) 25 mg HS PO 06/05/16 21:00 07/05/16 20:59 06/08/16 22:38 25 MG Metoprolol Tartrate (Lopressor Iv) 2.5 mg Q6H PRN IV 06/07/16 10:30 07/07/16 10:29 06/08/16 23:01 2.5 MG Metoprolol Succinate 75 mg 75 mg QAM PO 06/08/16 09:00 07/08/16 08:59 06/09/16 07:48 75 MG Vancomycin HCl 750 mg/Sodium Chloride 265 ml @ 125 mls/hr TODAY@1600 IV 06/09/16 16:00 06/09/16 23:59 Azithromycin 250 mg/Dextrose 252.5 ml @ 125 mls/hr DAILY@0900 IV 06/09/16 09:00 06/15/16 08:59 06/09/16 08:11 125 MLS/HR Heparin Sodium/ Dextrose (Heparin 25,000 Unit/500ml D5W) 500 ml @ 40 mls/hr [id number] PRN IV 06/08/16 15:05 07/08/16 15:04 06/09/16 07:58 40 MLS/HR Impression (1) End-stage renal disease on hemodialysis (2) Cellulitis of right foot (3) Sepsis (4) Monoclonal gammopathy (5) Diabetes mellitus, type II Bre is a 75-year-old gentlemen with end-stage renal disease on hemodialysis Tuesday, Tuesday, Tuesday at [facility] dialysis unit, hypertension, diabetes, history of MGUS, admitted to the hospital on 06/02/16 with episodes of for nausea and vomiting for few days, she will sign of worsening right lower extremity chronic infected diabetic ulcer. 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 Wound culture grew MSSA and gram negative and blood culture was negative. He was initially on clindamycin vancomycin and Zosyn in and then switched to Zosyn after few days. He has some left radiocephalic AV fistula and during hospital stay he was found to have stenosis proximal to the fistula. Dialysis has been going smoothly. He was scheduled for fistulogram on 06/07/2016, however while he was in water he was found to have low oxygen saturation and was tachycardic and procedure was them cancel. Had a CTA PE protocol of some which was negative for PE but found to have pneumonia and he was transferred to intensive care unit for further management. And currently he is on vancomycin, Zosyn and aztreonam. Recommendations -- overall seems to be doing better, hemodynamically stable, electrolyte acceptable and volume status acceptable. Tolerating HD well -- avoid further IV fluid, continue on phosphate binder with each meal. -- discussed with vascular surgery and they are planning tentatively to do fistulogram on Tuesday or as an outpatient as dialysis has been otherwise going smoothly. -- patient otherwise seems to be stable and hopefully will be transferred out of ICU pretty soon. --on heparin drip for A flutter and agree with starting on warfarin.
[2016-06-09] MEDS ORDERED: VANCOMYCIN INJ 750 MG in SODIUM CHLORIDE 0.9% 250ML 250 ML IV SCH (16:00)
[2016-06-09] MEDS: WARFARIN SOD 5 MG TAB PO SCH (16:10)
--- NOTE | 2016-06-09 16:42 | Progress Note ---
Subjective Date of Service: Jun 09, 2016. Subjective Pt evaluation today including: conversation w/ patient, chart review, lab review, review of studies Pain: feeling ok Patient seen at bedside today, foot was feeling ok, patient still feeling lethargic. Foot improving with no new issues. Dressing change performed. Problem List Medical Problems: (1) Cellulitis of right foot Status: Acute (2) Sepsis Status: Acute Objective Vital Signs Date Time Temp Pulse Resp B/P Pulse Ox O2 Delivery O2 Flow Rate FiO2 06/09/16 13:24 36.4 73 166/67 06/09/16 13:03 96 Room Air 06/09/16 12:45 80 148/61 06/09/16 12:30 77 151/78 06/09/16 12:15 75 118/56 06/09/16 12:00 72 115/62 06/09/16 11:45 76 112/60 06/09/16 11:30 81 94/59 06/09/16 11:22 72 110/57 06/09/16 11:15 72 85/51 06/09/16 11:00 76 106/40 06/09/16 10:45 81 102/55 06/09/16 10:30 81 91/51 06/09/16 10:15 76 119/57 06/09/16 10:00 74 122/53 06/09/16 09:45 80 133/65 06/09/16 09:30 82 126/55 06/09/16 09:15 81 126/55 06/09/16 09:02 79 126/56 06/09/16 08:54 36.4 75 103/57 06/09/16 08:00 36.6 86 16 187/76 93 Room Air 06/09/16 08:00 93 Room Air 06/09/16 04:00 94 Room Air 06/09/16 04:00 36.7 72 18 153/87 94 Room Air 06/09/16 02:00 79 11 152/79 Room Air 06/08/16 23:59 72 17 150/82 94 Room Air 06/08/16 23:59 94 Room Air 06/08/16 23:01 102 198/74 06/08/16 22:50 36.6 84 19 198/74 95 Room Air 06/08/16 20:00 95 Room Air 06/08/16 20:00 36.7 72 16 166/80 95 Room Air Physical Exam Skin: + pertinent finding (right foot dressings clean, dry and intact; removed todat at bedside, overall foot continues to remain stable and improving, xerform dressings reapplied, area flushed and cleaned) Laboratory Results Last 24 Hours Test 06/08/16 22:35 06/08/16 23:05 06/09/16 05:54 06/09/16 10:03 Bedside Glucose 301 mg/dl 155 mg/dl Activated Partial Thromboplast Time 33.7 SECONDS 66.9 SECONDS Partial Thromboplastin Ratio 1.3 2.6 Test 06/09/16 12:48 Bedside Glucose 83 mg/dl Assessment and Plan 1. right foot POD 6 - I and D, 5th metatarsal head resection, ulcer debridement - improved erythema, 5th digit swelling improved, post xrays stable and show 5th metatarsal head resection ; right foot dressing changed today, foot improving, continue to elevate right foot with pillow and recommend partial weightbearing at this time time, appreciate ID recs, pathology stating acute osteomyelitis right 5th metatarsal head, patient feeling OK and relates right foot to be feeling ok. Continued [facility] stay due to: multiple IV medications needed Discharge planning: uncertain
[2016-06-09] MEDS ORDERED: NURSING VERBAL MED ORDER ONE (18:45)
[2016-06-09] MEDS: TRAZODONE HCL 100 MG TAB PO SCH (20:52)
[2016-06-09] MEDS: ALLOPURINOL 100 MG TAB PO SCH (20:52)
[2016-06-09] MEDS: TAMSULOSIN HCL 0.4 MG CAP PO SCH (20:52)
[2016-06-09] MEDS: TRAZODONE HCL 50 MG TAB PO SCH (20:53)
[2016-06-09] MEDS: INSULIN DETEMIR FLEXPEN/FLEX TOUCH 100 UNITS/ML 3ML SC SCH (21:01)
[2016-06-09] MEDS: HydrALAZINE HCL 20 MG/ML VIAL IV. PRN (21:03)
[2016-06-09] MEDS: ALBUT/IPRATROP 3MG/0.5MG NEB 3 ML VIAL INH PRN (22:49)
[2016-06-09] MEDS ORDERED: LABETALOL HCL IV 5 MG/ML 20ML IV ONE (23:15)
[2016-06-09] MEDS: ALUMINUM/MAGNESIUM/SIMETH (MAALOX MAX) 30 ML UDC PO PRN (23:46)
[2016-06-10] VITALS (14 sets, daily range): BP systolic 150–225; BP diastolic 67–82; PULSE 67–89; TEMP 36.2–37; O2SAT 93–97
[2016-06-10] MEDS: NITROGLYCERIN 0.4 MG SL PER TAB CHARGE SL PRN ×3 (00:07→00:22)
[2016-06-10] MEDS ORDERED: NURSING VERBAL MED ORDER ONE ×5 (00:30→17:45)
--- NOTE | 2016-06-10 00:59 | Progress Note ---
Progress Note Date of Service Jun 10, 2016. Progress Note Phoned by nursing to notify me that patient was hypertensive approximately 22:30 Order was placed to Labetalol 10 mg. Prior to administering medication, nursing states that patient was complaining of chest pain. Also states that sBP improved to 160s. I asked nursing to hold labetalol, and would likely use Nitro to help with both chest pain and BP. Orders for Nitroglycerine 0.4 mg x 3. Instruction given to obtain EKG. I went up to assess the patient. EKG revealed NSR with sinus arrhythmia and possible left atrial enlargement. Subjective At the bedside patient states that pain was 8/10 after 3 Nitro. States though that "this pain is nothing". Patient did not appear atoll to be in any pain. States that his pain was in the lower chest and across the epigastrium. Also states that the pain worsens with sitting forward and taking a deep breath in. Exam - No distress, AO x 3 - S1 and S2, no added sounds or murmrs; no JVD - Mild coarseness in lungs bilaterally Impression/Plan: Based on reported symptoms, must consider, but severity reported does not coincide atoll with patient appearance at bedside. EKG does not show any acute changes. I will order troponin levels to confirm. Coarseness likely due to atelectasis from being in bed. There are no new oxygen requirements. PE would also be a consideration given pleuritic qualities. Patient is already on Heparin drip. Will continue to monitor through overnight EKG with worsening chest pain Troponin now and in 6 hours; primary team can determine if further trending is warranted
[2016-06-10] MEDS ORDERED: LABETALOL HCL IV 5 MG/ML 20ML IV ONE ×3 (02:09→02:55)
[2016-06-10] MEDS ORDERED: ASPIRIN 81 MG CHEW ONE (02:33)
[2016-06-10 05:22] LABS: BUN/CREATININE RATIO 4.4 (10-20); CALCIUM 8.8 mg/dl (8.5-10.1); CKMB/CK RATIO 3.8 (0-3.0); CREATININE 5.3 mg/dl (0.60-1.40); POTASSIUM 4.4 mmol/L (3.5-5.1)
[2016-06-10 06:30] LABS: PARTIAL THROMBOPLASTIN RATIO 1.4
[2016-06-10 06:43] LABS: HEMATOCRIT 23.9 % (42-52); MEAN CELL VOLUME 92.3 fL (80-100); MEAN CORPUSCULAR HEMOGLOBIN 30.1 pg (25-34); MEAN CORPUSCULAR HGB CONC 32.6 g/dl (32-36); MEAN PLATELET VOLUME 8.4 fL (7.4-10.4); PLATELET COUNT 516 K/uL (130-400); RED BLOOD COUNT 2.59 M/uL (4.7-6.1); WHITE BLOOD COUNT 15.04 K/uL (4.8-10.8)
[2016-06-10] MEDS ORDERED: HEPARIN IV BOLUS 7,000 UNIT in SYRINGE 0 ML IV ONE (07:15)
[2016-06-10] MEDS: PIPERACILL/TAZOBAC IV 4.5 GM in DEXTROSE 5% 100ML 100 ML IV SCH ×2 (08:08→20:14)
[2016-06-10] MEDS: CALCIUM ACETATE 667MG GELCAP PO SCH ×3 (08:08→17:18)
[2016-06-10] MEDS: CHOLECALCIFEROL 1000 INTER.UNIT TAB PO SCH (08:10)
[2016-06-10] MEDS: ATORVASTATIN 20 MG TAB PO SCH (08:10)
[2016-06-10] MEDS: METOPROLOL SUCC 25MG EXT REL TAB PO SCH (08:11)
[2016-06-10] MEDS: RANITIDINE HCL 150 MG TAB PO SCH (08:11)
[2016-06-10] MEDS: POLYETHYLENE (MIRALAX) 17 GM PACK PO SCH ×2 (08:11→08:19)
[2016-06-10] MEDS: FUROSEMIDE 40 MG TAB PO SCH (08:11)
[2016-06-10] MEDS: CHLORDIAZEPOXIDE 10 MG CAP PO SCH ×2 (08:17→20:24)
[2016-06-10] MEDS: INSULIN ASPART 100 UNITS/ML 3 ML PEN SC SCH ×4 (09:57→20:48)
[2016-06-10] MEDS: AZITHROMYCIN IV 250 MG in DEXTROSE 5% 250ML 250 ML IV SCH (09:59)
[2016-06-10] MEDS: HEPARIN 25,000 UNIT/500ML D5W 500 ML IV PRN ×2 (10:00→20:07)
[2016-06-10] MEDS: OXYCODONE/ACETAMINOPHEN 5-325 TAB PO PRN ×3 (10:06→23:40)
--- NOTE | 2016-06-10 11:32 | Nephrology Progress Note ---
Nephrology Progress Note Date of Service Jun 10, 2016. Chief Complaint Follow-up for end-stage renal disease on hemodialysis. Donna Díaz was seen and examined in his room this morning. He seems somewhat confused and lethargy. Denies any specific symptoms but overall feels poorly. P.o. intake seems to be poor, blood pressure running high, volume status and electrolyte acceptable. No episode of fever overnight. Diarrhea seems to have improved. tolerated dialysis well yesterday. Review of Systems A complete review of systems was performed. Pertinent positives are noted above. All other systems are negative. Vital Signs Last 8 Hrs Date Time Temp Pulse Resp B/P Pulse Ox O2 Delivery O2 Flow Rate FiO2 06/10/16 08:00 Nasal Cannula 2.0 06/10/16 07:48 36.2 80 20 171/80 97 2.0 06/10/16 04:00 Nasal Cannula 2.0 06/10/16 03:45 37.0 76 20 150/67 97 Nasal Cannula 2.0 I & O 24-Hour Column 06/10/16 07:59 Intake Total 2272 ml Output Total 2353 ml Balance -81 ml Last Recorded Weight Weight (Kilograms): 112.800 Physical Exam GENERAL: Elderly male, AAA x 3, ill appearing, not in any distress. NECK: Supple, no JVD. RESPIRATORY: Normal breathing efforts, no accessory muscle use, clear to auscultation bilaterally, no wheezes or rales. CARDIOVASCULAR: S1, S2 normal, rhythm irregular. EXTREMITY: right foot in dressing, with 1+ edema NEURO: speech fluent. PSYCHIATRY: Normal mood and judgment Family History FH: diabetes mellitus AUNT FH: stroke GRANDMOTHER Negative for CKD / ESRD Social History Smoking Status: Unknown if ever smoked Drug Use: none Marital Status: Housing Status: lives with family Occupation: retired . Retired. Former smoker (2ppd x 45 years, quit 2002) Laboratory Results Past 24 Hours 06/10/16 03:50 06/10/16 03:50 Test 06/09/16 12:48 06/09/16 16:15 06/09/16 20:33 06/10/16 01:18 Bedside Glucose 83 mg/dl (70-99) 105 mg/dl (70-99) 170 mg/dl (70-99) Troponin I 0.066 ng/ml (0-0.045) Test 06/10/16 03:50 06/10/16 06:25 06/10/16 10:44 Red Blood Count 2.59 M/uL (4.7-6.1) Mean Corpuscular Volume 92.3 fL (80-100) Mean Corpuscular Hemoglobin 30.1 pg (25-34) Mean Corpuscular Hemoglobin Concent 32.6 g/dl (32-36) RDW Standard Deviation 48.6 fL (36.4-46.3) RDW Coefficient of Variation 14.4 % (11.5-14.5) Mean Platelet Volume 8.4 fL (7.4-10.4) Activated Partial Thromboplast Time 36.2 SECONDS (21.0-31.0) Partial Thromboplastin Ratio 1.4 Anion Gap 6.0 mmol/L (3-11) Est Creatinine Clear Calc Drug Dose 16.2 ml/min Estimated GFR () 11.4 Estimated GFR (Non- 9.8 BUN/Creatinine Ratio 4.4 (10-20) Calcium Level 8.8 mg/dl (8.5-10.1) Total Creatine Kinase 16 U/L (39-308) Creatine Kinase MB 0.6 ng/ml (0.5-3.6) Creatine Kinase MB Ratio 3.8 (0-3.0) Troponin I 0.059 ng/ml (0-0.045) Random Vancomycin Level 20.7 mcg/ml Bedside Glucose 153 mg/dl (70-99) 162 mg/dl (70-99) Allergies Coded Allergies: No Known Allergies (Verified , 06/02/16) Medications Current Inpatient Medications Medications (Trade) Dose Ordered Sig/Eliseo Route Start Time Stop Time Status Last Admin Dose Admin Polyethylene (Miralax Powder Packet) 17 gm DAILY PO 06/03/16 08:00 07/03/16 08:59 06/09/16 07:50 17 GM Allopurinol (Zyloprim Tab) 100 mg HS PO 06/02/16 21:00 07/02/16 20:59 06/09/16 20:52 100 MG Amlodipine Besylate (Norvasc Tab) 5 mg QAM PO 06/03/16 08:00 07/03/16 08:59 Future Hold 06/03/16 08:26 5 MG Aspirin (Ecotrin Tab) 81 mg QAM PO 06/03/16 08:00 07/03/16 08:59 Future hold 06/09/16 07:47 81 MG Atorvastatin Calcium (Lipitor Tab) 20 mg DAILY PO 06/03/16 08:00 07/03/16 08:59 06/10/16 08:10 20 MG Calcium Acetate (Phoslo Cap) 667 mg TIDM PO 06/02/16 17:00 07/02/16 16:59 06/10/16 08:08 667 MG Furosemide (Lasix Tab) 40 mg DAILY PO 06/03/16 08:00 07/03/16 08:59 06/10/16 08:11 40 MG Ipratropium [place] (Atrovent Hfa Inhaler) 2 puffs QID PRN INH 06/02/16 12:30 07/02/16 12:29 Albuterol/ Ipratropium (Duoneb) 3 ml Q4H PRN INH 06/02/16 12:30 07/02/16 12:29 06/09/16 22:49 3 ML Meclizine HCl (Antivert Tab) 25 mg Q4H PRN PO 06/02/16 12:30 07/02/16 12:29 Tamsulosin HCl (Flomax Cap) 0.4 mg HS PO 06/02/16 21:00 07/02/16 20:59 06/09/16 20:52 0.4 MG Cholecalciferol (Vitamin D Tab) 2,000 inter.unit QAM PO 06/03/16 08:00 07/03/16 08:59 06/10/16 08:10 2,000 INTER.UNIT Insulin Detemir (Levemir Flexpen/ FlexTouch) 80 unit HS SC 06/02/16 21:00 07/02/16 20:59 06/09/16 21:01 80 UNIT Ranitidine HCl (zANTac TAB) 300 mg QAM PO 06/03/16 08:00 07/03/16 08:59 06/10/16 08:11 300 MG Oxycodone/ Acetaminophen 1 tab 1 tab Q4H PRN PO 06/02/16 12:30 06/16/16 12:29 06/09/16 07:47 1 TAB Piperacillin Sod/ Tazobactam Sod/ Dextrose (Zosyn Iv/D5 100ml) 120 ml @ 30 mls/hr Q12H IV 06/02/16 20:00 07/14/16 19:59 06/10/16 08:08 30 MLS/HR Piperacillin Sod/ Tazobactam Sod (Consult) 1 ea UD PRN N/A 06/02/16 15:00 07/02/16 14:59 Vancomycin HCl (Consult) 1 ea UD PRN N/A 06/02/16 15:00 07/02/16 14:59 Glucose (Glucose 40% Gel) 15-30 GRAMS 15 GRAMS... UD PRN PO 06/02/16 17:00 07/02/16 16:59 Glucose (Glucose Chew Tab) 4-8 Tablets 4 Tabl... UD PRN PO 06/02/16 17:00 07/02/16 16:59 Dextrose (Dextrose 50% 50ML Syringe) 25-50ML OF 50% DW IV FOR... UD PRN IV 06/02/16 17:00 07/02/16 16:59 Glucagon (Glucagon Inj) 1 mg UD PRN SQ 06/02/16 17:00 07/02/16 16:59 Insulin Aspart (novoLOG ASPART) SLIDING SCALE If C... ACHS SC 06/02/16 21:00 07/02/16 20:59 06/10/16 09:57 4 UNITS Acetaminophen (Tylenol Tab) 650 mg Q4H PRN PO 06/03/16 14:30 07/03/16 14:29 06/07/16 10:52 650 MG Al Hydrox/Mg Hydrox/Simethicone (Maalox Max Susp) 15 ml Q4H PRN PO 06/03/16 14:30 07/03/16 14:29 06/09/16 23:46 15 ML Magnesium Hydroxide (Milk Of Magnesia Susp) 30 ml Q12H PRN PO 06/03/16 14:30 07/03/16 14:29 Ondansetron HCl (Zofran Inj) 4 mg Q6H PRN IV 06/03/16 14:30 07/03/16 14:29 06/05/16 15:11 4 MG Oxycodone/ Acetaminophen (Percocet 5-325mg Tab) 2 tab Q4H PRN PO 06/03/16 14:30 06/17/16 14:29 06/10/16 10:06 2 TAB Metoclopramide HCl (Reglan Inj) 5 mg Q6H PRN IV 06/03/16 14:30 07/03/16 14:29 06/05/16 17:22 5 MG Trazodone HCl (Desyrel Tab) 100 mg HS PO 06/05/16 21:00 07/05/16 20:59 06/09/16 20:52 100 MG Chlordiazepoxide (Librium Cap) 10 mg BID PO 06/06/16 09:00 07/06/16 08:59 06/10/16 08:17 10 MG Trazodone HCl (Desyrel Tab) 25 mg HS PO 06/05/16 21:00 07/05/16 20:59 06/09/16 20:53 25 MG Metoprolol Tartrate (Lopressor Iv) 2.5 mg Q6H PRN IV 06/07/16 10:30 07/07/16 10:29 06/08/16 23:01 2.5 MG Metoprolol Succinate 75 mg 75 mg QAM PO 06/08/16 09:00 07/08/16 08:59 06/10/16 08:11 75 MG Azithromycin 250 mg/Dextrose 252.5 ml @ 125 mls/hr DAILY@0900 IV 06/09/16 09:00 06/15/16 08:59 06/10/16 09:59 125 MLS/HR Heparin Sodium/ Dextrose (Heparin 25,000 Unit/500ml D5W) 500 ml @ 47 mls/hr [id number] PRN IV 06/08/16 15:05 07/08/16 15:04 06/10/16 10:00 47 MLS/HR Warfarin Sodium (Coumadin Tab) 5 mg DAILY@16 PO 06/09/16 16:00 07/09/16 15:59 06/09/16 16:10 5 MG Hydralazine HCl (HydrALAZINE INJ) 10 mg Q6H PRN IV. 06/09/16 18:45 07/09/16 18:44 06/09/16 21:03 10 MG Nitroglycerin (Nitrostat Tab) 0.4 mg PRN PRN SL 06/10/16 00:15 07/10/16 00:14 06/10/16 00:22 0.4 MG Impression (1) End-stage renal disease on hemodialysis (2) Cellulitis of right foot (3) Sepsis (4) Monoclonal gammopathy (5) Diabetes mellitus, type II Bre is a 75-year-old gentlemen with end-stage renal disease on hemodialysis Tuesday, Tuesday, Tuesday at [facility] dialysis unit, hypertension, diabetes, history of MGUS, admitted to the hospital on 06/02/16 with episodes of for nausea and vomiting for few days, she will sign of worsening right lower extremity chronic infected diabetic ulcer. 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 Wound culture grew MSSA and gram negative and blood culture was negative. He was initially on clindamycin vancomycin and Zosyn in and then switched to Zosyn after few days. He has some left radiocephalic AV fistula and during hospital stay he was found to have stenosis proximal to the fistula. Dialysis has been going smoothly. He was scheduled for fistulogram on 06/07/2016, however while he was in water he was found to have low oxygen saturation and was tachycardic and procedure was them cancel. Had a CTA PE protocol of some which was negative for PE but found to have extensive rt sided pneumonia and he was transferred to intensive care unit for further management and currently he is on vancomycin, Zosyn and aztreonam. Transferred out to floor on 06/09/16 but continues to seem confused. Recommendations -- resume amlodipine and lisinopril 40 daily -- unclear etiology for continued lathergy and confusion, blood cr, urine cx negative, wound culture growing 3 organism sensitive to vanco, also on Zosyn. -- avoid further IV fluid, continue on phosphate binder with each meal. --epogen [id number] units with HD tomorrow -- vascular surgery planning tentatively to do fistulogram on Tuesday or as an outpatient as dialysis has been otherwise going smoothly. --on heparin drip for A flutter
--- NOTE | 2016-06-10 11:45 | CARDIOLOGY PROGRESS NOTE ---
DATE: 06/10/2016 HISTORY OF PRESENT ILLNESS: This morning, Mr. Carmichael stated that he was feeling alright. He denies any pain in his lower extremities and also denied any sensation in his lower extremities and later in the conversation he did report a sense of some mild pain in his legs. He also reported some breathing difficulty, but did not appear to be tachypneic. He states this started late last night and hurts primarily when he takes a deep breath. He had a very point pain in the sternal area with deep inspiration. He has not had any coughing. He did not report of being out of bed yesterday. PHYSICAL EXAMINATION: GENERAL: He was alert. He answered questions as noted. VITAL SIGNS: Include blood pressure 171/80 with a pulse of 80. LUNGS: Auscultation of his lung apices revealed them to be clear. CARDIAC EXAMINATION: Revealed him to be in a regular rhythm. LABORATORY STUDIES: Today included a white cell count of 15, hemoglobin of 7.8 and a platelet count of 516. Review of the patient's telemetry revealed the conversion to normal sinus rhythm. ASSESSMENT AND PLAN: 1. Atrial flutter. The patient converted to sinus rhythm this morning and has adequate heart rate. I think he can be continued on his current dose of metoprolol. Systemic anticoagulation has been initiated with warfarin. The patient could be followed in the outpatient setting for the arrhythmia. 2. Chest pain. This is pleuritic in nature and not likely cardiac. He has very mildly elevated cardiac biomarkers, which are quite common in the setting of end-stage renal disease and at this point, I would not pursue any additional cardiac workup in the absence of new symptoms.
[2016-06-10] MEDS: LISINOPRIL 40 MG TAB PO SCH (12:28)
--- NOTE | 2016-06-10 12:30 | Pharmacy Progress Note ---
Pharmacy Antibiotic Prog Note Date of Service Jun 10, 2016. Subjective The patient is currently receiving vancomycin-dosed based upon levels, zosyn 4.5 gm iv q 12 hrs, and azithromycin 250 mg daily for cellulitis/osteo infection. The patient is currently on day # 9 of IV therapy. Objective Height (Feet): 6 Height (Inches): 1.00 Weight (Kilograms): 112.800 Levels: Item Value Date Time Random Vancomycin Level 20.7 mcg/ml 06/10/16 0350 Lab Results (24hrs): Laboratory Tests Test 06/10/16 03:50 BUN/Creatinine Ratio 4.4 Blood Urea Nitrogen 23 mg/dl Creatinine 5.30 mg/dl White Blood Count 15.04 K/uL Assessment & Plan Patient on vancomycin, zosyn, and azithromycin for RLE cellulitis/osteo infection. ID is following the patient. Vancomycin: * Random vancomycin level this am was therapeutic at ~20 mcg/ml (goal 15-20 mcg/ ml for osteomyelitis/pna infection) * Next dialysis session is scheduled for 06/11 ; will hold vancomycin doses for today will remain therapeutic until tomorrow * Will utilize level from today to assist with dosing of vancomycin after dialysis tomorrow (MWF schedule now); no need to reorder another level Zosyn: * 4.5 gm iv q 12 hrs (appropriate for HD patients/severe infections) ; no changes necessary Pharmacy will continue to follow and will adjust dose/frequency as necessary. Thank you
--- NOTE | 2016-06-10 14:42 | Progress Note ---
Subjective Date of Service: Jun 10, 2016. Subjective Pt evaluation today including: conversation w/ patient, physical exam, chart review CP last pm noted. Mild non trending increase in troponins. No CP this am. Improved SOB. High BPs noted this am and OP HTN meds have been restarted by Renal Problem List Medical Problems: (1) Cellulitis of right foot Status: Acute (2) Sepsis Status: Acute Review of Systems Constitutional: + fatigue, + weakness Respiratory: + shortness of breath Cardiac: + chest pain Neurologic: No balance problems, No memory loss, No numbness/tingling, No paralysis, No problem reported, No see HPI, No vertigo, No weakness Heme: No abnormal bleeding/bruising, No clotting problems, No night sweats, No problem reported, No see HPI, No swollen lymph nodes Medications Medications (Trade) Dose Ordered Sig/Eliseo Route Start Time Stop Time Status Last Admin Dose Admin Vancomycin HCl/ Sodium Chloride (Vancomycin Inj/ Nss 250ml) 265 ml @ 125 mls/hr TODAY@1600 IV 06/09/16 16:00 06/09/16 23:59 DC 06/09/16 16:12 125 MLS/HR Warfarin Sodium (Coumadin Tab) 5 mg DAILY@16 PO 06/09/16 16:00 07/09/16 15:59 06/09/16 16:10 5 MG Hydralazine HCl (HydrALAZINE INJ) 10 mg Q6H PRN IV. 06/09/16 18:45 07/09/16 18:44 06/09/16 21:03 10 MG Nitroglycerin (Nitrostat Tab) 0.4 mg PRN PRN SL 06/10/16 00:15 07/10/16 00:14 06/10/16 00:22 0.4 MG Labetalol HCl (Normodyne IV) 5 mg STK-MED ONCE IV 06/10/16 02:09 06/10/16 02:10 DC 06/10/16 02:10 5 MG Aspirin (Aspirin Chew) 324 mg STK-MED ONCE .ROUTE 06/10/16 02:33 06/10/16 03:03 DC 06/10/16 02:30 324 MG Labetalol HCl (Normodyne IV) 10 mg 0230 ONCE IV 06/10/16 02:30 06/10/16 06:32 DC 06/10/16 02:30 10 MG Labetalol HCl 20 mg 20 mg 0255 ONCE IV 06/10/16 02:55 06/10/16 06:32 DC 06/10/16 02:55 20 MG Heparin Sodium (Porcine)/Syringe (Heparin Iv Bolus/Syringe) 7 ml @ 10 mls/min NOW ONCE IV 06/10/16 07:15 06/10/16 07:16 DC 06/10/16 08:16 10 MLS/MIN Lisinopril (Zestril Tab) 40 mg QAM PO 06/10/16 12:00 07/10/16 11:59 06/10/16 12:28 40 MG Objective Vital Signs Date Time Temp Pulse Resp B/P Pulse Ox O2 Delivery O2 Flow Rate FiO2 06/10/16 12:00 Nasal Cannula 2.0 06/10/16 11:26 36.4 67 16 164/68 95 Room Air 06/10/16 08:00 Nasal Cannula 2.0 06/10/16 07:48 36.2 80 20 171/80 97 2.0 06/10/16 04:00 Nasal Cannula 2.0 06/10/16 03:45 37.0 76 20 150/67 97 Nasal Cannula 2.0 06/10/16 02:50 80 194/70 06/10/16 02:28 82 216/72 06/10/16 02:10 89 225/77 06/10/16 00:22 172/72 06/10/16 00:17 172/73 06/10/16 00:00 Nasal Cannula 2.0 06/09/16 23:46 36.5 86 20 169/69 94 Room Air 06/09/16 22:49 81 14 95 Room Air 06/09/16 22:29 214/84 06/09/16 21:00 Room Air 06/09/16 20:54 190/83 06/09/16 19:37 36.6 77 18 178/72 95 Room Air 06/09/16 18:28 76 210/78 06/09/16 16:00 96 Room Air Physical Exam General Appearance: WD/WN Eyes: normal inspection ENT: hearing grossly normal Neck: supple, no adenopathy, no JVD Respiratory/Chest: chest non-tender, + decreased breath sounds Cardiovascular: regular rate, rhythm, + systolic murmur Abdomen: normal bowel sounds Extremities: normal range of motion, non-tender Neurologic/Psychiatric: water hauler II-XII nml as tested, no motor/sensory deficits, alert Lymphatic: no adenopathy Laboratory Results Last 24 Hours Test 06/09/16 16:15 06/09/16 20:33 06/10/16 01:18 06/10/16 03:50 Bedside Glucose 105 mg/dl 170 mg/dl Troponin I 0.066 ng/ml 0.059 ng/ml White Blood Count 15.04 K/uL Red Blood Count 2.59 M/uL Hemoglobin 7.8 g/dL Hematocrit 23.9 % Mean Corpuscular Volume 92.3 fL Mean Corpuscular Hemoglobin 30.1 pg Mean Corpuscular Hemoglobin Concent 32.6 g/dl RDW Standard Deviation 48.6 fL RDW Coefficient of Variation 14.4 % Platelet Count 516 K/uL Mean Platelet Volume 8.4 fL Activated Partial Thromboplast Time 36.2 SECONDS Partial Thromboplastin Ratio 1.4 Sodium Level 132 mmol/L Potassium Level 4.4 mmol/L Chloride Level 96 mmol/L Carbon Dioxide Level 30 mmol/L Anion Gap 6.0 mmol/L Blood Urea Nitrogen 23 mg/dl Creatinine 5.30 mg/dl Est Creatinine Clear Calc Drug Dose 16.2 ml/min Estimated GFR () 11.4 Estimated GFR (Non- 9.8 BUN/Creatinine Ratio 4.4 Random Glucose 151 mg/dl Calcium Level 8.8 mg/dl Total Creatine Kinase 16 U/L Creatine Kinase MB 0.6 ng/ml Creatine Kinase MB Ratio 3.8 Random Vancomycin Level 20.7 mcg/ml Test 06/10/16 06:25 06/10/16 10:44 06/10/16 12:45 Bedside Glucose 153 mg/dl 162 mg/dl Troponin I 0.089 ng/ml Assessment and Plan 75 M with diabetic foot infection at site of chronic wound, surgical debridement, dialysis, PMHx of DM II, HTN, Hyperlipidemia, COPD, ESRD on HD m/ w/f, gout, RLE diabetic foot infection/Cellulitis Possible osteomyelitis RLE R plantar surface of the 5th toe wound gram positives on culture, ID changed to clindamycin, but also yet to be identified Gram negative - Dr. Hart consult surgical debridement 06/03 and remains open, will have wound care eval to see best dressing for healing for secondary intent Afib/flutter. Converted to sinus rhythm. Appreciate Cards input. Will start pt on formal anti coagulation. Will start Warfarin and overlap with heparin gtt. Echo results noted. Hypoxia. Improved. CXR and CT chest shows RLL PNA. IV antibiotics as per ID and Pulm. CT chest was neg for PE. Swallowing eval pending to rule out aspiration. ESRD on HD- Nephrology,Chronic but stable m/w/f. fistulae was eval by Doppler, stenosis suggested, Dr Cabral to address Fistulogram cancelled due to a.flutter with RVR. Fistulogram to be pursued as OP or on Tuesday if pt still in the hospital over the weekend Anemia: Likely secondary to CKD. Will benefit from epogen. left leg pain, doppler suggests chronic DVT, no acute treatment, left foot shows no avulsion fracture COPD- stable on inhaled medicines, not on continuous oxygen yet Constipation mirilax and dulcolax supp. HTN : Higher trends noted and BP meds adjusted by Renal anxiety, librium and hs seroquel Hyperlipidemia: atorvastatin 20 mg daily GERDcontinues with no complaints ranitidine 150 mg HS DVT ppx: Teds, scds, heparin sq CODE STATUS: FULL CODE Continued [facility] stay due to: multiple IV medications needed Discharge planning: uncertain
[2016-06-10 14:54] LABS: PARTIAL THROMBOPLASTIN RATIO 2.6
--- NOTE | 2016-06-10 15:23 | Hospitalist Progress Note ---
Hospitalist Progress Note Date of Service Jun 10, 2016. Subjective Pt evaluation today including: conversation w/ patient, physical exam ATSP Reg: Chest pain CP retrosternal (lower), non radiating, worse with deep inspiration. No N/V No diaphoresis. Exam CV: S1 S2, No pericardial rub. No pleural rub. Stat EKG shows NSR, subtle ST elevation in inferior leads, ? IN segment elevation in aVR, ? early pericarditis (pt has CKD on HD). Will recheck c.troponins Will liase with Cardiology reg. utility of using colchicine for empiric treatment of pericarditis. Objective Vital Signs Date Time Temp Pulse Resp B/P Pulse Ox O2 Delivery O2 Flow Rate FiO2 06/10/16 12:00 Nasal Cannula 2.0 06/10/16 11:26 36.4 67 16 164/68 95 Room Air 06/10/16 08:00 Nasal Cannula 2.0 06/10/16 07:48 36.2 80 20 171/80 97 2.0 06/10/16 04:00 Nasal Cannula 2.0 06/10/16 03:45 37.0 76 20 150/67 97 Nasal Cannula 2.0 06/10/16 02:50 80 194/70 06/10/16 02:28 82 216/72 06/10/16 02:10 89 225/77 06/10/16 00:22 172/72 06/10/16 00:17 172/73 06/10/16 00:00 Nasal Cannula 2.0 06/09/16 23:46 36.5 86 20 169/69 94 Room Air 06/09/16 22:49 81 14 95 Room Air 06/09/16 22:29 214/84 06/09/16 21:00 Room Air 06/09/16 20:54 190/83 06/09/16 19:37 36.6 77 18 178/72 95 Room Air 06/09/16 18:28 76 210/78 06/09/16 16:00 96 Room Air Laboratory Results Last 24 Hours Test 06/09/16 16:15 06/09/16 20:33 06/10/16 01:18 06/10/16 03:50 Bedside Glucose 105 mg/dl 170 mg/dl Troponin I 0.066 ng/ml 0.059 ng/ml White Blood Count 15.04 K/uL Red Blood Count 2.59 M/uL Hemoglobin 7.8 g/dL Hematocrit 23.9 % Mean Corpuscular Volume 92.3 fL Mean Corpuscular Hemoglobin 30.1 pg Mean Corpuscular Hemoglobin Concent 32.6 g/dl RDW Standard Deviation 48.6 fL RDW Coefficient of Variation 14.4 % Platelet Count 516 K/uL Mean Platelet Volume 8.4 fL Activated Partial Thromboplast Time 36.2 SECONDS Partial Thromboplastin Ratio 1.4 Sodium Level 132 mmol/L Potassium Level 4.4 mmol/L Chloride Level 96 mmol/L Carbon Dioxide Level 30 mmol/L Anion Gap 6.0 mmol/L Blood Urea Nitrogen 23 mg/dl Creatinine 5.30 mg/dl Est Creatinine Clear Calc Drug Dose 16.2 ml/min Estimated GFR () 11.4 Estimated GFR (Non- 9.8 BUN/Creatinine Ratio 4.4 Random Glucose 151 mg/dl Calcium Level 8.8 mg/dl Total Creatine Kinase 16 U/L Creatine Kinase MB 0.6 ng/ml Creatine Kinase MB Ratio 3.8 Random Vancomycin Level 20.7 mcg/ml Test 06/10/16 06:25 06/10/16 10:44 06/10/16 12:45 06/10/16 15:09 Bedside Glucose 153 mg/dl 162 mg/dl Activated Partial Thromboplast Time 67.5 SECONDS Partial Thromboplastin Ratio 2.6 Troponin I 0.089 ng/ml Assessment and Plan 75 M with diabetic foot infection at site of chronic wound, surgical debridement, dialysis, PMHx of DM II, HTN, Hyperlipidemia, COPD, ESRD on HD m/ w/f, gout, RLE diabetic foot infection/Cellulitis Possible osteomyelitis RLE R plantar surface of the 5th toe wound gram positives on culture, ID changed to clindamycin, but also yet to be identified Gram negative - Dr. Hart consult surgical debridement 06/03 and remains open, will have wound care eval to see best dressing for healing for secondary intent Afib/flutter. Converted to sinus rhythm. Appreciate Cards input. Will start pt on formal anti coagulation. Will start Warfarin and overlap with heparin gtt. Echo results noted. Hypoxia. Improved. CXR and CT chest shows RLL PNA. IV antibiotics as per ID and Pulm. CT chest was neg for PE. Swallowing eval pending to rule out aspiration. ESRD on HD- Nephrology,Chronic but stable m/w/f. fistulae was eval by Doppler, stenosis suggested, Dr aCbral to address Fistulogram cancelled due to a.flutter with RVR. Fistulogram to be pursued as OP or on Tuesday if pt still in the hospital over the weekend Anemia: Likely secondary to CKD. Will benefit from epogen. left leg pain, doppler suggests chronic DVT, no acute treatment, left foot shows no avulsion fracture COPD- stable on inhaled medicines, not on continuous oxygen yet Constipation mirilax and dulcolax supp. HTN : Higher trends noted and BP meds adjusted by Renal anxiety, librium and hs seroquel Hyperlipidemia: atorvastatin 20 mg daily GERDcontinues with no complaints ranitidine 150 mg HS DVT ppx: Teds, scds, heparin sq CODE STATUS: FULL CODE
[2016-06-10] MEDS: WARFARIN SOD 5 MG TAB PO SCH (15:32)
[2016-06-10] MEDS: HydrALAZINE HCL 20 MG/ML VIAL IV. PRN ×2 (16:07→23:41)
[2016-06-10] MEDS ORDERED: IBUPROFEN 200 MG TAB PO STA (16:38)
[2016-06-10] MEDS: BOOST BREEZE NUTRITION DRINK 1 BOX PO SCH (17:18)
[2016-06-10] MEDS ORDERED: HydrALAZINE HCL 20 MG/ML VIAL IV. ONE (17:45)
[2016-06-10] MEDS: TAMSULOSIN HCL 0.4 MG CAP PO SCH (20:17)
[2016-06-10] MEDS: ALLOPURINOL 100 MG TAB PO SCH (20:18)
[2016-06-10] MEDS: TRAZODONE HCL 50 MG TAB PO SCH (20:19)
[2016-06-10] MEDS: TRAZODONE HCL 100 MG TAB PO SCH (20:19)
--- NOTE | 2016-06-10 20:19 | Progress Note ---
Subjective Date of Service: Jun 10, 2016. Subjective Pt evaluation today including: conversation w/ patient, chart review, lab review, review of studies patient seen at bedside, having some pain with breathing, foot felt ok Problem List Medical Problems: (1) Cellulitis of right foot Status: Acute (2) Sepsis Status: Acute Objective Vital Signs Date Time Temp Pulse Resp B/P Pulse Ox O2 Delivery O2 Flow Rate FiO2 06/10/16 19:38 36.6 74 17 170/75 93 Nasal Cannula 2.0 06/10/16 17:31 75 178/75 06/10/16 15:35 36.2 70 18 181/70 96 Nasal Cannula 2.0 06/10/16 12:00 Nasal Cannula 2.0 06/10/16 11:26 36.4 67 16 164/68 95 Room Air 06/10/16 08:00 Nasal Cannula 2.0 06/10/16 07:48 36.2 80 20 171/80 97 2.0 06/10/16 04:00 Nasal Cannula 2.0 06/10/16 03:45 37.0 76 20 150/67 97 Nasal Cannula 2.0 06/10/16 02:50 80 194/70 06/10/16 02:28 82 216/72 06/10/16 02:10 89 225/77 06/10/16 00:22 172/72 06/10/16 00:17 172/73 06/10/16 00:00 Nasal Cannula 2.0 06/09/16 23:46 36.5 86 20 169/69 94 Room Air 06/09/16 22:49 81 14 95 Room Air 06/09/16 22:29 214/84 06/09/16 21:00 Room Air 06/09/16 20:54 190/83 Physical Exam Skin: + pertinent finding (right foot with dressings intact, left in place today ) Laboratory Results Last 24 Hours Test 06/09/16 20:33 06/10/16 01:18 06/10/16 03:50 06/10/16 06:25 Bedside Glucose 170 mg/dl 153 mg/dl Troponin I 0.066 ng/ml 0.059 ng/ml White Blood Count 15.04 K/uL Red Blood Count 2.59 M/uL Hemoglobin 7.8 g/dL Hematocrit 23.9 % Mean Corpuscular Volume 92.3 fL Mean Corpuscular Hemoglobin 30.1 pg Mean Corpuscular Hemoglobin Concent 32.6 g/dl RDW Standard Deviation 48.6 fL RDW Coefficient of Variation 14.4 % Platelet Count 516 K/uL Mean Platelet Volume 8.4 fL Activated Partial Thromboplast Time 36.2 SECONDS Partial Thromboplastin Ratio 1.4 Sodium Level 132 mmol/L Potassium Level 4.4 mmol/L Chloride Level 96 mmol/L Carbon Dioxide Level 30 mmol/L Anion Gap 6.0 mmol/L Blood Urea Nitrogen 23 mg/dl Creatinine 5.30 mg/dl Est Creatinine Clear Calc Drug Dose 16.2 ml/min Estimated GFR () 11.4 Estimated GFR (Non- 9.8 BUN/Creatinine Ratio 4.4 Random Glucose 151 mg/dl Calcium Level 8.8 mg/dl Total Creatine Kinase 16 U/L Creatine Kinase MB 0.6 ng/ml Creatine Kinase MB Ratio 3.8 Random Vancomycin Level 20.7 mcg/ml Test 06/10/16 10:44 06/10/16 12:45 06/10/16 15:23 06/10/16 15:57 Bedside Glucose 162 mg/dl 141 mg/dl Activated Partial Thromboplast Time 67.5 SECONDS Partial Thromboplastin Ratio 2.6 Troponin I 0.089 ng/ml 0.083 ng/ml Assessment and Plan 1. right foot POD 7 - I and D, 5th metatarsal head resection, ulcer debridement - improved erythema and swelling, post xrays stable and show 5th metatarsal head resection ; right foot dressing left in place, foot improving, continue to elevate right foot with pillow and recommend partial weightbearing at this time time, appreciate ID recs, pathology stating acute osteomyelitis right 5th metatarsal head, recommend wound vac to right foot, wound care consult placed Continued [facility] stay due to: multiple IV medications needed Discharge planning: uncertain
[2016-06-10] MEDS: INSULIN DETEMIR FLEXPEN/FLEX TOUCH 100 UNITS/ML 3ML SC SCH (20:49)
[2016-06-11] VITALS (23 sets, daily range): BP systolic 118–184; BP diastolic 62–99; PULSE 66–90; TEMP 36.4–36.8; O2SAT 95–96; BMI 32.8
[2016-06-11] MEDS: HEPARIN 25,000 UNIT/500ML D5W 500 ML IV PRN (06:24)
[2016-06-11 06:42] LABS: PARTIAL THROMBOPLASTIN RATIO 2.3
[2016-06-11] MEDS: BOOST BREEZE NUTRITION DRINK 1 BOX PO SCH ×3 (07:00→17:15)
[2016-06-11 07:09] LABS: BUN/CREATININE RATIO 4.9 (10-20); CALCIUM 9.5 mg/dl (8.5-10.1); CKMB/CK RATIO 7.1 (0-3.0); CREATININE 6.9 mg/dl (0.60-1.40); POTASSIUM 4.5 mmol/L (3.5-5.1)
[2016-06-11] MEDS: CALCIUM ACETATE 667MG GELCAP PO SCH ×3 (07:53→18:27)
[2016-06-11] MEDS: CHOLECALCIFEROL 1000 INTER.UNIT TAB PO SCH (07:53)
[2016-06-11] MEDS: FUROSEMIDE 40 MG TAB PO SCH (07:53)
[2016-06-11] MEDS: AMLODIPINE BESYLATE 5 MG TAB PO SCH (07:53)
[2016-06-11] MEDS: ASPIRIN 81 MG ECTAB PO SCH (07:54)
[2016-06-11] MEDS: ATORVASTATIN 20 MG TAB PO SCH (07:54)
[2016-06-11] MEDS: LISINOPRIL 40 MG TAB PO SCH (07:54)
[2016-06-11] MEDS: METOPROLOL SUCC 25MG EXT REL TAB PO SCH (07:54)
[2016-06-11] MEDS: POLYETHYLENE (MIRALAX) 17 GM PACK PO SCH (07:54)
[2016-06-11] MEDS: RANITIDINE HCL 150 MG TAB PO SCH (07:55)
[2016-06-11] MEDS: CHLORDIAZEPOXIDE 10 MG CAP PO SCH ×2 (07:58→20:35)
[2016-06-11] MEDS ORDERED: EPOETIN ALFA 20,000 UNITS/ML VIAL IV SCH (08:00)
[2016-06-11] MEDS: INSULIN ASPART 100 UNITS/ML 3 ML PEN SC SCH ×4 (08:01→21:00)
[2016-06-11 08:53] LABS: INR 1.2 (0.9-1.1); PROTHROMBIN TIME (PATIENT) 12.6 SECONDS (9.0-12.0)
[2016-06-11] MEDS ORDERED: AMLODIPINE BESYLATE 5 MG TAB PO ONE (10:00)
[2016-06-11] MEDS ORDERED: NURSING VERBAL MED ORDER ONE ×2 (11:30→18:30)
--- NOTE | 2016-06-11 12:12 | Dialysis Progress Note ---
Hemodialysis Note Date of Service Jun 11, 2016. Chief Complaint Follow-up for end-stage renal disease on hemodialysis. Donna Díaz Was seen and examined during dialysis this morning. Has been tolerating dialysis well, blood pressure stable, resting comfortably and denies any symptoms. Since this morning he had 1 episode of very mild nosebleed and his heparin was stopped. Review of Systems A complete review of systems was performed. Pertinent positives are noted above. All other systems are negative. Vital Signs Last 8 Hrs Date Time Temp Pulse Resp B/P Pulse Ox O2 Delivery O2 Flow Rate FiO2 06/11/16 11:45 77 161/68 06/11/16 11:30 83 118/75 06/11/16 11:15 83 165/75 06/11/16 11:00 70 130/68 06/11/16 10:45 77 148/78 06/11/16 10:30 79 165/70 06/11/16 10:15 78 155/63 06/11/16 10:00 77 154/67 06/11/16 09:45 76 163/74 06/11/16 09:33 69 173/81 06/11/16 08:00 Room Air 06/11/16 07:22 36.4 82 18 171/99 96 2.0 06/11/16 04:24 36.6 75 18 152/69 96 Nasal Cannula 2.0 I & O 24-Hour Column 06/11/16 07:59 Intake Total 2901 ml Balance 2901 ml Last Recorded Weight Weight (Kilograms): 112.800 Physical Exam GENERAL: Elderly male, AAA x 3, ill appearing, not in any distress. NECK: Supple, no JVD. RESPIRATORY: Normal breathing efforts, no accessory muscle use, clear to auscultation bilaterally, no wheezes or rales. CARDIOVASCULAR: S1, S2 normal, rhythm irregular. EXTREMITY: right foot in dressing, with 1+ edema NEURO: speech fluent. PSYCHIATRY: Normal mood and judgment Family History Negative for CKD / ESRD Social History Smoking Status: Unknown if ever smoked Drug Use: none Marital Status: Housing Status: lives with family Occupation: retired . Retired. Former smoker (2ppd x 45 years, quit 2002) Laboratory Results Past 24 Hours 06/11/16 05:57 Test 06/10/16 12:45 06/10/16 15:23 06/10/16 15:57 06/10/16 19:57 Activated Partial Thromboplast Time 67.5 SECONDS (21.0-31.0) Partial Thromboplastin Ratio 2.6 Troponin I 0.089 ng/ml (0-0.045) 0.083 ng/ml (0-0.045) Bedside Glucose 141 mg/dl (70-99) 148 mg/dl (70-99) Test 06/11/16 05:57 06/11/16 06:49 Prothrombin Time 12.6 SECONDS (9.0-12.0) Prothromb Time International Ratio 1.2 (0.9-1.1) Activated Partial Thromboplast Time 60.4 SECONDS (21.0-31.0) Partial Thromboplastin Ratio 2.3 Anion Gap 11.0 mmol/L (3-11) Est Creatinine Clear Calc Drug Dose 12.4 ml/min Estimated GFR () 8.3 Estimated GFR (Non- 7.1 BUN/Creatinine Ratio 4.9 (10-20) Calcium Level 9.5 mg/dl (8.5-10.1) Total Creatine Kinase 14 U/L (39-308) Creatine Kinase MB 1.0 ng/ml (0.5-3.6) Creatine Kinase MB Ratio 7.1 (0-3.0) Bedside Glucose 74 mg/dl (70-99) Allergies Coded Allergies: No Known Allergies (Verified , 06/02/16) Medications Current Inpatient Medications Medications (Trade) Dose Ordered Sig/Eliseo Route Start Time Stop Time Status Last Admin Dose Admin Polyethylene (Miralax Powder Packet) 17 gm DAILY PO 06/03/16 08:00 07/03/16 08:59 06/09/16 07:50 17 GM Allopurinol (Zyloprim Tab) 100 mg HS PO 06/02/16 21:00 07/02/16 20:59 06/10/16 20:18 100 MG Aspirin (Ecotrin Tab) 81 mg QAM PO 06/03/16 08:00 07/03/16 08:59 Future hold 06/11/16 07:54 81 MG Atorvastatin Calcium (Lipitor Tab) 20 mg DAILY PO 06/03/16 08:00 07/03/16 08:59 06/11/16 07:54 20 MG Calcium Acetate (Phoslo Cap) 667 mg TIDM PO 06/02/16 17:00 5/19/17 16:59 06/11/16 07:53 667 MG Furosemide (Lasix Tab) 40 mg DAILY PO 06/03/16 08:00 07/03/16 08:59 06/11/16 07:53 40 MG Ipratropium [place] (Atrovent Hfa Inhaler) 2 puffs QID PRN INH 06/02/16 12:30 07/02/16 12:29 Albuterol/ Ipratropium (Duoneb) 3 ml Q4H PRN INH 06/02/16 12:30 07/02/16 12:29 06/09/16 22:49 3 ML Meclizine HCl (Antivert Tab) 25 mg Q4H PRN PO 06/02/16 12:30 07/02/16 12:29 Tamsulosin HCl (Flomax Cap) 0.4 mg HS PO 06/02/16 21:00 07/02/16 20:59 06/10/16 20:17 0.4 MG Cholecalciferol (Vitamin D Tab) 2,000 inter.unit QAM PO 06/03/16 08:00 07/03/16 08:59 06/11/16 07:53 2,000 INTER.UNIT Insulin Detemir (Levemir Flexpen/ FlexTouch) 80 unit HS SC 06/02/16 21:00 07/02/16 20:59 06/10/16 20:49 40 UNIT Ranitidine HCl (zANTac TAB) 300 mg QAM PO 06/03/16 08:00 07/03/16 08:59 06/11/16 07:55 300 MG Oxycodone/ Acetaminophen 1 tab 1 tab Q4H PRN PO 06/02/16 12:30 06/16/16 12:29 06/09/16 07:47 1 TAB Piperacillin Sod/ Tazobactam Sod/ Dextrose (Zosyn Iv/D5 100ml) 120 ml @ 30 mls/hr Q12H IV 06/02/16 20:00 07/14/16 19:59 06/10/16 20:14 30 MLS/HR Piperacillin Sod/ Tazobactam Sod (Consult) 1 ea UD PRN N/A 06/02/16 15:00 07/02/16 14:59 Vancomycin HCl (Consult) 1 ea UD PRN N/A 06/02/16 15:00 07/02/16 14:59 Glucose (Glucose 40% Gel) 15-30 GRAMS 15 GRAMS... UD PRN PO 06/02/16 17:00 07/02/16 16:59 Glucose (Glucose Chew Tab) 4-8 Tablets 4 Tabl... UD PRN PO 06/02/16 17:00 07/02/16 16:59 Dextrose (Dextrose 50% 50ML Syringe) 25-50ML OF 50% DW IV FOR... UD PRN IV 06/02/16 17:00 07/02/16 16:59 Glucagon (Glucagon Inj) 1 mg UD PRN SQ 06/02/16 17:00 07/02/16 16:59 Insulin Aspart (novoLOG ASPART) SLIDING SCALE If C... ACHS SC 06/02/16 21:00 07/02/16 20:59 06/11/16 08:01 6 UNITS Acetaminophen (Tylenol Tab) 650 mg Q4H PRN PO 06/03/16 14:30 07/03/16 14:29 06/07/16 10:52 650 MG Al Hydrox/Mg Hydrox/Simethicone (Maalox Max Susp) 15 ml Q4H PRN PO 06/03/16 14:30 07/03/16 14:29 06/09/16 23:46 15 ML Magnesium Hydroxide (Milk Of Magnesia Susp) 30 ml Q12H PRN PO 06/03/16 14:30 07/03/16 14:29 Ondansetron HCl (Zofran Inj) 4 mg Q6H PRN IV 06/03/16 14:30 07/03/16 14:29 06/05/16 15:11 4 MG Oxycodone/ Acetaminophen (Percocet 5-325mg Tab) 2 tab Q4H PRN PO 06/03/16 14:30 06/17/16 14:29 06/10/16 23:40 2 TAB Metoclopramide HCl (Reglan Inj) 5 mg Q6H PRN IV 06/03/16 14:30 07/03/16 14:29 06/05/16 17:22 5 MG Trazodone HCl (Desyrel Tab) 100 mg HS PO 06/05/16 21:00 07/05/16 20:59 06/10/16 20:19 100 MG Chlordiazepoxide (Librium Cap) 10 mg BID PO 06/06/16 09:00 07/06/16 08:59 06/11/16 07:58 10 MG Trazodone HCl (Desyrel Tab) 25 mg HS PO 06/05/16 21:00 07/05/16 20:59 06/10/16 20:19 25 MG Metoprolol Tartrate (Lopressor Iv) 2.5 mg Q6H PRN IV 06/07/16 10:30 07/07/16 10:29 06/08/16 23:01 2.5 MG Metoprolol Succinate 75 mg 75 mg QAM PO 06/08/16 09:00 07/08/16 08:59 06/11/16 07:54 75 MG Azithromycin 250 mg/Dextrose 252.5 ml @ 125 mls/hr DAILY@0900 IV 06/09/16 09:00 06/15/16 08:59 06/10/16 09:59 125 MLS/HR Heparin Sodium/ Dextrose (Heparin 25,000 Unit/500ml D5W) 500 ml @ 47 mls/hr [id number] PRN IV 06/08/16 15:05 07/08/16 15:04 Future hold 06/11/16 06:24 47 MLS/HR Hydralazine HCl (HydrALAZINE INJ) 10 mg Q6H PRN IV. 06/09/16 18:45 07/09/16 18:44 06/10/16 23:41 10 MG Nitroglycerin (Nitrostat Tab) 0.4 mg PRN PRN SL 06/10/16 00:15 07/10/16 00:14 06/10/16 00:22 0.4 MG Lisinopril (Zestril Tab) 40 mg QAM PO 06/10/16 12:00 07/10/16 11:59 06/11/16 07:54 40 MG Enteral Nutritional Formula (Boost Breeze Nutritional Drink) 1 box AC PO 06/10/16 16:15 07/10/16 16:14 06/10/16 17:18 1 BOX Epoetin Vini (Procrit Inj) 20,000 units DURINGDIALYSIS IV 06/11/16 08:00 06/11/16 18:00 Amlodipine Besylate (Norvasc Tab) 10 mg QAM PO 06/12/16 09:00 07/12/16 08:59 Impression (1) End-stage renal disease on hemodialysis (2) Cellulitis of right foot (3) Sepsis (4) Monoclonal gammopathy (5) Diabetes mellitus, type II Bre is a 75-year-old gentlemen with end-stage renal disease on hemodialysis Tuesday, Tuesday, Tuesday at [facility] dialysis unit, hypertension, diabetes, history of MGUS, admitted to the hospital on 06/02/16 with episodes of for nausea and vomiting for few days, she will sign of worsening right lower extremity chronic infected diabetic ulcer. 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 Wound culture grew MSSA and gram negative and blood culture was negative. He was initially on clindamycin vancomycin and Zosyn in and then switched to Zosyn after few days. 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 Dialysis has been going smoothly. He was scheduled for fistulogram on 06/07/2016, however while he was in OR he was found to have low oxygen saturation and was tachycardic and procedure was them cancel. Had a CTA PE protocol of some which was negative for PE but found to have extensive rt sided pneumonia and he was transferred to intensive care unit for further management and currently he is on vancomycin, Zosyn and aztreonam. Transferred out to floor on 06/09/16. He was started on heparin for anticoagulation and warfarin for new onset A flutter. currently heparin is on hold due to the brief episode of mild nosebleed this morning. Recommendations --Increase amlodipine to 10 milligrams daily and lisinopril 40 daily -- avoid further IV fluid, continue on phosphate binder with each meal. --epogen 68218 units with HD tomorrow -- vascular surgery planning tentatively to do fistulogram on Tuesday or as an outpatient as dialysis has been otherwise going smoothly. --on coumadin for A flutter --will need PT and possible rehab placement at least for few days
[2016-06-11] MEDS: AZITHROMYCIN IV 250 MG in DEXTROSE 5% 250ML 250 ML IV SCH (13:43)
--- NOTE | 2016-06-11 14:03 | Progress Note ---
Subjective Date of Service: Jun 11, 2016. Subjective Pt evaluation today including: conversation w/ patient, physical exam, chart review, lab review CP present, but improved. Epistaxis this am. Problem List Medical Problems: (1) Cellulitis of right foot Status: Acute (2) Sepsis Status: Acute Review of Systems Respiratory: + dyspnea on exertion Cardiac: + chest pain (improved) Heme: + abnormal bleeding/bruising Medications Medications (Trade) Dose Ordered Sig/Eliseo Route Start Time Stop Time Status Last Admin Dose Admin Lisinopril (Zestril Tab) 40 mg QAM PO 06/10/16 12:00 07/10/16 11:59 06/11/16 07:54 40 MG Enteral Nutritional Formula (Boost Breeze Nutritional Drink) 1 box AC PO 06/10/16 16:15 07/10/16 16:14 06/10/16 17:18 1 BOX Ibuprofen (Advil Tab) 200 mg NOW STAT PO 06/10/16 16:38 06/10/16 16:47 DC 06/10/16 17:18 200 MG Hydralazine HCl (HydrALAZINE INJ) 10 mg 1745 ONCE IV. 06/10/16 17:45 06/10/16 17:46 DC 06/10/16 17:47 10 MG Objective Vital Signs Date Time Temp Pulse Resp B/P Pulse Ox O2 Delivery O2 Flow Rate FiO2 06/11/16 07:22 36.4 82 18 171/99 96 2.0 06/11/16 04:24 36.6 75 18 152/69 96 Nasal Cannula 2.0 06/11/16 04:00 96 Nasal Cannula 06/11/16 00:11 76 169/71 06/10/16 23:59 96 Room Air 06/10/16 23:40 36.6 73 18 183/82 96 Room Air 06/10/16 20:00 93 Nasal Cannula 2.0 06/10/16 19:38 36.6 74 17 170/75 93 Nasal Cannula 2.0 06/10/16 17:31 75 178/75 06/10/16 16:00 Nasal Cannula 2.0 06/10/16 15:35 36.2 70 18 181/70 96 Nasal Cannula 2.0 06/10/16 12:00 Nasal Cannula 2.0 06/10/16 11:26 36.4 67 16 164/68 95 Room Air Physical Exam General Appearance: WD/WN ENT: + pertinent finding (epistaxis-blood noted in right external nares.) Respiratory/Chest: chest non-tender, + decreased breath sounds Cardiovascular: regular rate, rhythm, + systolic murmur Abdomen: normal bowel sounds, non tender, soft Neurologic/Psychiatric: alert, normal mood/affect, oriented x 3 Laboratory Results Last 24 Hours Test 06/10/16 10:44 06/10/16 12:45 06/10/16 15:23 06/10/16 15:57 Bedside Glucose 162 mg/dl 141 mg/dl Activated Partial Thromboplast Time 67.5 SECONDS Partial Thromboplastin Ratio 2.6 Troponin I 0.089 ng/ml 0.083 ng/ml Test 06/10/16 19:57 06/11/16 05:57 06/11/16 06:49 06/11/16 08:27 Bedside Glucose 148 mg/dl 74 mg/dl Activated Partial Thromboplast Time 60.4 SECONDS Partial Thromboplastin Ratio 2.3 Sodium Level 129 mmol/L Potassium Level 4.5 mmol/L Chloride Level 91 mmol/L Carbon Dioxide Level 27 mmol/L Anion Gap 11.0 mmol/L Blood Urea Nitrogen 34 mg/dl Creatinine 6.90 mg/dl Est Creatinine Clear Calc Drug Dose 12.4 ml/min Estimated GFR () 8.3 Estimated GFR (Non- 7.1 BUN/Creatinine Ratio 4.9 Random Glucose 68 mg/dl Calcium Level 9.5 mg/dl Total Creatine Kinase 14 U/L Creatine Kinase MB 1.0 ng/ml Creatine Kinase MB Ratio 7.1 VANCOMYCIN 1 S 1 S PENICILLIN >8 R ERYTHROMYCIN >4 R TETRACYCLINE <=4 S CLINDAMYCIN <=0.5 S DAPTOMYCIN <=0.5 S 4 S STREP SYNERGY <=1000 S ENTEROCOCCUS FAECIUM: POSITIVE COMBO 33 Streptomycin Synergy Screen S CONTINUED ON NEXT PAGE RUN DATE: 06/08/16 [facility] LAB PAGE 2 RUN TIME: 1446 Specimen Inquiry SPEC: [id number] PATIENT: GUILLERMO MARTINEZ [id number] ( Continued) Procedure Result Verified Site OR AER/RAO CULT Final (continued) Gentamicin Synergy Screen R 1. STAPHYLOCOCCUS AUREUS Target Route Dose RX AB Cost M.I.C. IQ ------ ----- ------ -- ------ -------- - ------ TRIMET/SULFA S <=0.5/ 9.5 * OXACILLIN S 0.5 VANCOMYCIN S 1 ERYTHROMYCIN R >4 TETRACYCLINE S <=4 CLINDAMYCIN S <=0.5 DAPTOMYCIN S <=0.5 2. ENTEROCOCCUS FAECIUM Target Route Dose RX AB Cost M.I.C. IQ ------ ----- ------ -- ------ -------- - ------ AMPICILLIN R >8 GENT SYNERGY R >500 VANCOMYCIN S 1 PENICILLIN R >8 DAPTOMYCIN S 4 STREP SYNERGY S <=1000 Streptomycin Synergy Screen S Gentamicin Synergy Screen R S = SENSITIVE I = INTERMEDIATE R = RESISTANT END OF REPORT Assessment and Plan 75 M with diabetic foot infection at site of chronic wound, surgical debridement, dialysis, PMHx of DM II, HTN, Hyperlipidemia, COPD, ESRD on HD m/ w/f, gout, RLE diabetic foot infection/Cellulitis Possible osteomyelitis RLE - On IV antibiotics. - Dr. Hart consult surgical debridement 06/03 and remains open, will have wound care eval to see best dressing for healing for secondary intent Afib/flutter. Converted to sinus rhythm. Appreciate Cards input. Epistaxis noted. Will stop heparin gtt. Check stat INR. PTT is 61 today. Hypoxia. Improved. CXR and CT chest shows RLL PNA. IV antibiotics as per ID and Pulm. CT chest was neg for PE. Swallowing eval pending to rule out aspiration. ESRD on HD- Nephrology,Chronic but stable m/w/f. fistulae was eval by Doppler, stenosis suggested, Dr Cabral to address Fistulogram cancelled due to a.flutter with RVR. Fistulogram to be pursued as OP or on Tuesday if pt still in the hospital over the weekend Anemia: Likely secondary to CKD. Will benefit from epogen. left leg pain, doppler suggests chronic DVT, no acute treatment, left foot shows no avulsion fracture COPD- stable on inhaled medicines, not on continuous oxygen yet Constipation mirilax and dulcolax supp. HTN : Higher trends noted and BP meds adjusted by Renal anxiety, librium and hs seroquel Hyperlipidemia: atorvastatin 20 mg daily GERDcontinues with no complaints ranitidine 150 mg HS DVT ppx: Teds, scds, heparin sq CODE STATUS: FULL CODE Continued [facility] stay due to: multiple IV medications needed Discharge planning: uncertain
--- NOTE | 2016-06-11 14:10 | Infectious Disease Progress Nt ---
Progress Note Date of Service Jun 11, 2016. Subjective Pt evaluation today including: chart review, lab review, review of studies, review of inpatient medication list Patient's white blood cell count this morning was 15.04. His creatinine was 6.90, and he did receive hemodialysis this morning. His wound cultures were finalized with MSSA, Enterococcus which is ampicillin resistant, and Bacteroides. Blood cultures were finalized with no growth. The patient remains on IV vancomycin, Zosyn, and azithromycin. He has not had a repeat chest x-ray. All Other Systems: Reviewed and Negative Medications Current Inpatient Medications Medications (Trade) Dose Ordered Sig/Eliseo Route Start Time Stop Time Status Last Admin Dose Admin Polyethylene (Miralax Powder Packet) 17 gm DAILY PO 06/03/16 08:00 07/03/16 08:59 06/09/16 07:50 17 GM Allopurinol (Zyloprim Tab) 100 mg HS PO 06/02/16 21:00 07/02/16 20:59 06/10/16 20:18 100 MG Aspirin (Ecotrin Tab) 81 mg QAM PO 06/03/16 08:00 07/03/16 08:59 Future hold 06/11/16 07:54 81 MG Atorvastatin Calcium (Lipitor Tab) 20 mg DAILY PO 06/03/16 08:00 07/03/16 08:59 06/11/16 07:54 20 MG Calcium Acetate (Phoslo Cap) 667 mg TIDM PO 06/02/16 17:00 07/02/16 16:59 06/11/16 13:44 667 MG Furosemide (Lasix Tab) 40 mg DAILY PO 06/03/16 08:00 07/03/16 08:59 06/11/16 07:53 40 MG Ipratropium [place] (Atrovent Hfa Inhaler) 2 puffs QID PRN INH 06/02/16 12:30 07/02/16 12:29 Albuterol/ Ipratropium (Duoneb) 3 ml Q4H PRN INH 06/02/16 12:30 07/02/16 12:29 06/09/16 22:49 3 ML Meclizine HCl (Antivert Tab) 25 mg Q4H PRN PO 06/02/16 12:30 07/02/16 12:29 Tamsulosin HCl (Flomax Cap) 0.4 mg HS PO 06/02/16 21:00 07/02/16 20:59 06/10/16 20:17 0.4 MG Cholecalciferol (Vitamin D Tab) 2,000 inter.unit QAM PO 06/03/16 08:00 07/03/16 08:59 06/11/16 07:53 2,000 INTER.UNIT Insulin Detemir (Levemir Flexpen/ FlexTouch) 80 unit HS SC 06/02/16 21:00 07/02/16 20:59 06/10/16 20:49 40 UNIT Ranitidine HCl (zANTac TAB) 300 mg QAM PO 06/03/16 08:00 07/03/16 08:59 06/11/16 07:55 300 MG Oxycodone/ Acetaminophen 1 tab 1 tab Q4H PRN PO 06/02/16 12:30 06/16/16 12:29 06/09/16 07:47 1 TAB Piperacillin Sod/ Tazobactam Sod/ Dextrose (Zosyn Iv/D5 100ml) 120 ml @ 30 mls/hr Q12H IV 06/02/16 20:00 07/14/16 19:59 06/10/16 20:14 30 MLS/HR Piperacillin Sod/ Tazobactam Sod (Consult) 1 ea UD PRN N/A 06/02/16 15:00 07/02/16 14:59 Vancomycin HCl (Consult) 1 ea UD PRN N/A 06/02/16 15:00 07/02/16 14:59 Glucose (Glucose 40% Gel) 15-30 GRAMS 15 GRAMS... UD PRN PO 06/02/16 17:00 07/02/16 16:59 Glucose (Glucose Chew Tab) 4-8 Tablets 4 Tabl... UD PRN PO 06/02/16 17:00 07/02/16 16:59 Dextrose (Dextrose 50% 50ML Syringe) 25-50ML OF 50% DW IV FOR... UD PRN IV 06/02/16 17:00 07/02/16 16:59 Glucagon (Glucagon Inj) 1 mg UD PRN SQ 06/02/16 17:00 07/02/16 16:59 Insulin Aspart (novoLOG ASPART) SLIDING SCALE If C... ACHS SC 06/02/16 21:00 07/02/16 20:59 06/11/16 08:01 6 UNITS Acetaminophen (Tylenol Tab) 650 mg Q4H PRN PO 06/03/16 14:30 07/03/16 14:29 06/07/16 10:52 650 MG Al Hydrox/Mg Hydrox/Simethicone (Maalox Max Susp) 15 ml Q4H PRN PO 06/03/16 14:30 07/03/16 14:29 06/09/16 23:46 15 ML Magnesium Hydroxide (Milk Of Magnesia Susp) 30 ml Q12H PRN PO 06/03/16 14:30 07/03/16 14:29 Ondansetron HCl (Zofran Inj) 4 mg Q6H PRN IV 06/03/16 14:30 07/03/16 14:29 06/05/16 15:11 4 MG Oxycodone/ Acetaminophen (Percocet 5-325mg Tab) 2 tab Q4H PRN PO 06/03/16 14:30 06/17/16 14:29 06/10/16 23:40 2 TAB Metoclopramide HCl (Reglan Inj) 5 mg Q6H PRN IV 06/03/16 14:30 07/03/16 14:29 06/05/16 17:22 5 MG Trazodone HCl (Desyrel Tab) 100 mg HS PO 06/05/16 21:00 07/05/16 20:59 06/10/16 20:19 100 MG Chlordiazepoxide (Librium Cap) 10 mg BID PO 06/06/16 09:00 07/06/16 08:59 06/11/16 07:58 10 MG Trazodone HCl (Desyrel Tab) 25 mg HS PO 06/05/16 21:00 07/05/16 20:59 06/10/16 20:19 25 MG Metoprolol Tartrate (Lopressor Iv) 2.5 mg Q6H PRN IV 06/07/16 10:30 07/07/16 10:29 06/08/16 23:01 2.5 MG Metoprolol Succinate 75 mg 75 mg QAM PO 06/08/16 09:00 07/08/16 08:59 06/11/16 07:54 75 MG Azithromycin 250 mg/Dextrose 252.5 ml @ 125 mls/hr DAILY@0900 IV 06/09/16 09:00 06/15/16 08:59 06/11/16 13:43 125 MLS/HR Heparin Sodium/ Dextrose (Heparin 25,000 Unit/500ml D5W) 500 ml @ 47 mls/hr [id number] PRN IV 06/08/16 15:05 07/08/16 15:04 Future hold 06/11/16 06:24 47 MLS/HR Hydralazine HCl (HydrALAZINE INJ) 10 mg Q6H PRN IV. 06/09/16 18:45 07/09/16 18:44 06/10/16 23:41 10 MG Nitroglycerin (Nitrostat Tab) 0.4 mg PRN PRN SL 06/10/16 00:15 07/10/16 00:14 06/10/16 00:22 0.4 MG Lisinopril (Zestril Tab) 40 mg QAM PO 06/10/16 12:00 07/10/16 11:59 06/11/16 07:54 40 MG Enteral Nutritional Formula (Boost Breeze Nutritional Drink) 1 box AC PO 06/10/16 16:15 07/10/16 16:14 06/10/16 17:18 1 BOX Epoetin Vini (Procrit Inj) 20,000 units DURINGDIALYSIS IV 06/11/16 08:00 06/11/16 18:00 Amlodipine Besylate 10 mg 10 mg QAM PO 06/12/16 09:00 07/12/16 08:59 Vancomycin HCl/ Sodium Chloride (Vancomycin Inj/ Nss 250ml) 260 ml @ 125 mls/hr Fr@1600 IV 06/11/16 16:00 06/11/16 23:59 Objective Vital Signs Date Time Temp Pulse Resp B/P Pulse Ox O2 Delivery O2 Flow Rate FiO2 06/11/16 12:15 79 163/76 06/11/16 12:00 75 177/84 06/11/16 11:45 77 161/68 06/11/16 11:30 83 118/75 06/11/16 11:15 83 165/75 06/11/16 11:00 70 130/68 06/11/16 10:45 77 148/78 06/11/16 10:30 79 165/70 06/11/16 10:15 78 155/63 06/11/16 10:00 77 154/67 06/11/16 09:45 76 163/74 06/11/16 09:33 69 173/81 06/11/16 08:00 Room Air 06/11/16 07:22 36.4 82 18 171/99 96 2.0 06/11/16 04:24 36.6 75 18 152/69 96 Nasal Cannula 2.0 06/11/16 04:00 96 Nasal Cannula 06/11/16 00:11 76 169/71 06/10/16 23:59 96 Room Air 06/10/16 23:40 36.6 73 18 183/82 96 Room Air 06/10/16 20:00 93 Nasal Cannula 2.0 06/10/16 19:38 36.6 74 17 170/75 93 Nasal Cannula 2.0 06/10/16 17:31 75 178/75 06/10/16 16:00 Nasal Cannula 2.0 06/10/16 15:35 36.2 70 18 181/70 96 Nasal Cannula 2.0 Laboratory Results Last 24 Hours Test 06/10/16 15:23 06/10/16 15:57 06/10/16 19:57 06/11/16 05:57 Troponin I 0.083 ng/ml Bedside Glucose 141 mg/dl 148 mg/dl Prothrombin Time 12.6 SECONDS Prothromb Time International Ratio 1.2 Activated Partial Thromboplast Time 60.4 SECONDS Partial Thromboplastin Ratio 2.3 Sodium Level 129 mmol/L Potassium Level 4.5 mmol/L Chloride Level 91 mmol/L Carbon Dioxide Level 27 mmol/L Anion Gap 11.0 mmol/L Blood Urea Nitrogen 34 mg/dl Creatinine 6.90 mg/dl Est Creatinine Clear Calc Drug Dose 12.4 ml/min Estimated GFR () 8.3 Estimated GFR (Non- 7.1 BUN/Creatinine Ratio 4.9 Random Glucose 68 mg/dl Calcium Level 9.5 mg/dl Total Creatine Kinase 14 U/L Creatine Kinase MB 1.0 ng/ml Creatine Kinase MB Ratio 7.1 Test 06/11/16 06:49 Bedside Glucose 74 mg/dl Assessment and Plan Patient with right 5th distal metatarsal abscess and osteomyelitis with chronic overlying ulceration and now probable right sided pneumonia and new onset diarrhea. Wound culture growing MSSA, Enterococcus, and Bacteroides. He is currently only on Zosyn, Vancomycin and Azithromycin. Will order repeat chest x -ray to reassess right-sided consolidation. Feel that this patient likely could transition to IV daptomycin at 6 mg/kg dosing for ease of use as an outpatient upon discharge to cover both staph and Enterococcus and p.o. Flagyl to cover Bacteroides. Feel that this patient likely will require at least 1-2 more weeks of IV antibiotic therapy pending wound healing. this patient will need follow-up at the [facility] following discharge. We will continue to follow. PROVIDER ADDENDUM: Pt. reviewed with Ms. Linder. Agree with above assessment.
[2016-06-11] MEDS: PIPERACILL/TAZOBAC IV 4.5 GM in DEXTROSE 5% 100ML 100 ML IV SCH ×2 (14:16→20:29)
[2016-06-11] MEDS ORDERED: VANCOMYCIN INJ 500 MG in SODIUM CHLORIDE 0.9% 250ML 250 ML IV SCH (16:00)
--- NOTE | 2016-06-11 16:38 | Pharmacy Progress Note ---
Pharmacy Antibiotic Prog Note Date of Service Jun 11, 2016. Subjective The patient is currently receiving VANCOMYCIN per empiric dosing based on levels d/t HD The patient is currently on day # 10 of Vancomycin IV therapy. Objective Height (Feet): 6 Height (Inches): 1.00 Weight (Kilograms): 112.800 Levels: Item Value Date Time Random Vancomycin Level 20.7 mcg/ml 06/10/16 0350 Assessment & Plan 75yo male receiving IV Vancomycin for osteomyelitis. Pt also receiving Zosyn + Azithromycin for PNX. Pt receives HD M,W,F. Vancomycin has been dosed after HD on dialysis days. Dose of vancomycin is dependent on pre-HD vanco level. VANCOMYCIN: * Random level 06/10 was 20.7mcg/ml. Likely unchanged today as no HD yesterday * Pt to receive HD 06/11 and will need vancomycin re-dosed after HD * Based on pre-HD level of 20.7mcg/ml will give Vancomycin 500mg IV x 1 * Re-check random vanco level prior to next HD session Tuesday06/14/16 & re-dose accordingly. Pharmacy will continue to follow and will adjust dose/frequency as necessary. Thank you
--- NOTE | 2016-06-11 17:29 | DIAGNOSTIC IMAGING REPORT ---
CHEST 2 VIEWS ROUTINE CLINICAL HISTORY: Reassess right sided consolidation COMPARISON STUDY: Chest radiograph and chest CT June 07, 2016. FINDINGS: There is no pneumothorax. Mild cardiomegaly is unchanged. There is no evidence for pulmonary edema. Right lung consolidation shown on prior exam of June 07, 2016 has significantly improved. There is residual airspace opacity. No cavitation is identified. There are trace bilateral pleural effusions. IMPRESSION: 1. Marked improvement in right lung pneumonia since exam of June 07, 2016. Mild residual airspace opacity. 2. Trace bilateral pleural effusions. 3. Pulmonary vascular congestion. Electronically signed by: Adrian Fox M.D. 06/11/2016 5:28 PM Dictated Date/Time: 06/11/2016 5:26 PM
[2016-06-11] MEDS: ALLOPURINOL 100 MG TAB PO SCH (20:31)
[2016-06-11] MEDS: TRAZODONE HCL 100 MG TAB PO SCH (20:31)
[2016-06-11] MEDS: TRAZODONE HCL 50 MG TAB PO SCH (20:32)
[2016-06-11] MEDS: TAMSULOSIN HCL 0.4 MG CAP PO SCH (20:33)
[2016-06-11] MEDS: INSULIN DETEMIR FLEXPEN/FLEX TOUCH 100 UNITS/ML 3ML SC SCH (20:39)
--- NOTE | 2016-06-11 22:43 | Progress Note ---
Post ICU Progress Note Date & Time Jun 11, 2016 at 22:43 Vital Signs Vital Signs Past 12 Hours Date Time Temp Pulse Resp B/P Pulse Ox O2 Delivery O2 Flow Rate FiO2 06/11/16 14:00 Room Air 06/11/16 13:27 36.7 90 180/67 06/11/16 13:00 86 153/65 06/11/16 12:45 80 149/65 06/11/16 12:30 78 144/62 06/11/16 12:15 79 163/76 06/11/16 12:00 75 177/84 06/11/16 11:45 77 161/68 06/11/16 11:30 83 118/75 06/11/16 11:15 83 165/75 06/11/16 11:00 70 130/68 06/11/16 10:45 77 148/78 Notes Mental Status: see Notes (Pt sleeping in bed, conversation with nursing, and research of current medical documentation. ) Nausea / Vomiting: adequately controlled Pain: adequately controlled Airway Patency, RR, SpO2: stable & adequate BP & HR: stable & adequate Bre Carmichael is a 75-year-old diabetic end-stage renal disease male who presented to the ICU on June 08 after hypoxia with A. Fib RVR. 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 Pt has a history of end stage renal disease and chronic shortness of breath. Dr. Dang performed a thoracic ultrasound with data consistent of pulmonary edema. DVT and pulmonary embolism were ruled out. Patient was placed on noninvasive ventilation and dialyzed later that day. Patient did not require intubation or invasive monitoring. He did not receive arterial or central access. He was transferred to telemetry status the following day without issue. Patient does have a history of diabetes type 2 with insulin use. During his stay in the ICU patient did refuse suggested diabetic medication changes. He undergoes hemodialysis Tuesday, Tuesday, and Tuesday. He suffers from hypertension, hyperlipidemia, COPD with a 2 pack per day smoking history for 35 years, having quit 20 years ago. For this follow-up note the patient was not examined, but I did speak with his nurse Anne at length about his current status as well as reviewed his chart. Anne states that he continues with his intermittent chronic shortness of breath. He had gone to the restroom today and asked for oxygen while sitting on the commode; however, when she reentered the room he had thrown the O2 in the trash and was back in bed. She states that he has repeatedly said he is ready to go home; however, per case management there is no plan of discharge yet. Per case management patient is planned for a PICC line and will need to choose a home health agency for IV antibiotics if prescribed. Patient's wound is currently not healing well and was deemed inappropriate for the wound VAC, so it was not replaced. Patient's vital signs have remained stable normal sinus rhythm with adequate saturations. Consider outpatient follow up in 1 to 2 weeks s/p discharge with: Dr. Obi Mendez Repeat imaging needed: as determined by hospitalist team Follow up cultures: As needed Reviewed progress notes, labs, and inpatient medication list Continue current management Additional recommendations: None at this time Patient is stable at this time; therefore, critical care will sign off. Thank you for including us in the care of this patient, please feel free to reconsult as needed. Consults & Procedures Consultants: Wound care Podiatry: Alyssa Hart DPM Pulmonology: Dr. Kentrell Daniel Cardiology: Dr. Obi Longoria Infectious disease: Dr. Ellis/Aleah Linder Vascular surgery: Dr. Zion Cabral Nephrology: Dr. Andres Bustillo/Dianna Dixon
[2016-06-12 05:52] VITALS: BP 176/72; PULSE 85
[2016-06-12] MEDS: HydrALAZINE HCL 20 MG/ML VIAL IV. PRN ×2 (05:53→23:15)
[2016-06-12 05:57] LABS: BASO % 0.2 %; BASO ABS # 0.03 K/uL (0-0.2); EOS % 1.5 %; IG% 0.7 %; LYMPH % 12.5 %; LYMPH ABS # 1.69 K/uL (1.2-3.4); MEAN CELL VOLUME 92.7 fL (80-100); MEAN CORPUSCULAR HEMOGLOBIN 30.5 pg (25-34); MEAN CORPUSCULAR HGB CONC 32.9 g/dl (32-36); MEAN PLATELET VOLUME 8.2 fL (7.4-10.4); MONO % 13.5 %; NEUT % 71.6 %; PLATELET COUNT 460 K/uL (130-400); RED BLOOD COUNT 2.59 M/uL (4.7-6.1); WHITE BLOOD COUNT 13.53 K/uL (4.8-10.8)
[2016-06-12 06:08] LABS: INR 1.6 (0.9-1.1); PARTIAL THROMBOPLASTIN RATIO 1.4; PROTHROMBIN TIME (PATIENT) 17.2 SECONDS (9.0-12.0)
[2016-06-12 06:19] LABS: COMPLETE YES; POLYCHROMASIA 1+
[2016-06-12 06:46] LABS: BUN/CREATININE RATIO 5.1 (10-20); CALCIUM 9.2 mg/dl (8.5-10.1); CKMB/CK RATIO 4.7 (0-3.0); CREATININE 5.1 mg/dl (0.60-1.40); POTASSIUM 3.9 mmol/L (3.5-5.1)
[2016-06-12 07:17] VITALS: BP 171/63; PULSE 74; TEMP 36.6; O2SAT 94
[2016-06-12 07:30] VITALS: O2SAT 94
[2016-06-12] MEDS: BOOST BREEZE NUTRITION DRINK 1 BOX PO SCH ×3 (07:58→17:15)
[2016-06-12] MEDS: POLYETHYLENE (MIRALAX) 17 GM PACK PO SCH (09:00)
[2016-06-12] MEDS: CALCIUM ACETATE 667MG GELCAP PO SCH ×3 (09:13→18:26)
[2016-06-12] MEDS: ASPIRIN 81 MG ECTAB PO SCH (09:13)
[2016-06-12] MEDS: FUROSEMIDE 40 MG TAB PO SCH (09:14)
[2016-06-12] MEDS: ATORVASTATIN 20 MG TAB PO SCH (09:14)
[2016-06-12] MEDS: METOPROLOL SUCC 25MG EXT REL TAB PO SCH (09:15)
[2016-06-12] MEDS: AMLODIPINE BESYLATE 5 MG TAB PO SCH (09:15)
[2016-06-12] MEDS: CHOLECALCIFEROL 1000 INTER.UNIT TAB PO SCH (09:16)
[2016-06-12] MEDS: RANITIDINE HCL 150 MG TAB PO SCH (09:16)
[2016-06-12] MEDS: LISINOPRIL 40 MG TAB PO SCH (09:17)
[2016-06-12] MEDS: INSULIN ASPART 100 UNITS/ML 3 ML PEN SC SCH ×4 (09:20→21:00)
[2016-06-12] MEDS: CHLORDIAZEPOXIDE 10 MG CAP PO SCH ×2 (09:20→21:52)
[2016-06-12] MEDS: PIPERACILL/TAZOBAC IV 4.5 GM in DEXTROSE 5% 100ML 100 ML IV SCH ×2 (09:32→19:51)
[2016-06-12] MEDS: AZITHROMYCIN IV 250 MG in DEXTROSE 5% 250ML 250 ML IV SCH (09:55)
[2016-06-12 10:00] VITALS: BP 138/65
[2016-06-12] MEDS: HEPARIN 25,000 UNIT/500ML D5W 500 ML IV PRN ×4 (11:13→23:10)
[2016-06-12 15:15] VITALS: BP 153/67; PULSE 77; TEMP 36.8; O2SAT 95
--- NOTE | 2016-06-12 15:21 | Nephrology Progress Note ---
Nephrology Progress Note Date of Service Jun 12, 2016. Chief Complaint ESRD Subjective No acute events overnight. Tolerated HD yesterday, UF 2.2 kg. No shortness of breath. No chest pain or palpitations. Denies fevers or chills. Review of Systems A complete review of systems was performed. Pertinent positives are noted above. All other systems are negative. Vital Signs Last 8 Hrs Date Time Temp Pulse Resp B/P Pulse Ox O2 Delivery O2 Flow Rate FiO2 06/12/16 10:00 138/65 06/12/16 07:30 94 Room Air 06/12/16 07:17 36.6 74 16 171/63 94 Room Air I & O 24-Hour Column 06/12/16 07:59 Intake Total 1490 ml Output Total 2287 ml Balance -797 ml Last Recorded Weight Weight (Kilograms): 112.800 Physical Exam General Appearance: WD/WN, no apparent distress Head: normocephalic, atraumatic Eyes: normal inspection, sclerae normal ENT: normal ENT inspection, pharynx normal Neck: supple, + pertinent finding (increased JVP) Respiratory/Chest: no respiratory distress, no accessory muscle use, + rales ( bibasilar) Cardiovascular: regular rate, rhythm, no gallop, + systolic murmur Abdomen/GI: non tender, soft Extremities/Musculoskelatal: normal inspection, + pedal edema (R>L), + pertinent finding (AVF with thrill and bruit) Neurologic/Psych: alert, oriented x 3 Family History FH: diabetes mellitus AUNT FH: stroke GRANDMOTHER Negative for CKD / ESRD Social History Smoking Status: Unknown if ever smoked Drug Use: none Marital Status: Housing Status: lives with family Occupation: retired . Retired. Former smoker (2ppd x 45 years, quit 2002) Laboratory Results Past 24 Hours 06/12/16 05:15 Red Blood Count 2.59, Mean Corpuscular Volume 92.7, Mean Corpuscular Hemoglobin 30.5, Mean Corpuscular Hemoglobin Concent 32.9, Mean Platelet Volume 8.2, Neutrophils (%) (Auto) 71.6, Lymphocytes (%) (Auto) 12.5, Monocytes (%) (Auto) 13.5, Eosinophils (%) (Auto) 1.5, Basophils (%) (Auto) 0.2, Neutrophils # (Auto ) 9.69, Lymphocytes # (Auto) 1.69, Monocytes # (Auto) 1.82, Eosinophils # (Auto ) 0.20, Basophils # (Auto) 0.03 06/12/16 05:15 Test 06/11/16 17:09 06/11/16 20:53 06/12/16 05:15 06/12/16 07:16 Bedside Glucose 109 mg/dl (70-99) 105 mg/dl (70-99) 120 mg/dl (70-99) White Blood Count 13.53 K/uL (4.8-10.8) Red Blood Count 2.59 M/uL (4.7-6.1) Hemoglobin 7.9 g/dL (14.0-18.0) Hematocrit 24.0 % (42-52) Mean Corpuscular Volume 92.7 fL (80-100) Mean Corpuscular Hemoglobin 30.5 pg (25-34) Mean Corpuscular Hemoglobin Concent 32.9 g/dl (32-36) Platelet Count 460 K/uL (130-400) Mean Platelet Volume 8.2 fL (7.4-10.4) Neutrophils (%) (Auto) 71.6 % Lymphocytes (%) (Auto) 12.5 % Monocytes (%) (Auto) 13.5 % Eosinophils (%) (Auto) 1.5 % Basophils (%) (Auto) 0.2 % Neutrophils # (Auto) 9.69 K/uL (1.4-6.5) Lymphocytes # (Auto) 1.69 K/uL (1.2-3.4) Monocytes # (Auto) 1.82 K/uL (0.11-0.59) Eosinophils # (Auto) 0.20 K/uL (0-0.5) Basophils # (Auto) 0.03 K/uL (0-0.2) RDW Standard Deviation 50.2 fL (36.4-46.3) RDW Coefficient of Variation 15.0 % (11.5-14.5) Immature Granulocyte % (Auto) 0.7 % Immature Granulocyte # (Auto) 0.10 K/uL (0.00-0.02) Polychromasia 1+ Prothrombin Time 17.2 SECONDS (9.0-12.0) Prothromb Time International Ratio 1.6 (0.9-1.1) Activated Partial Thromboplast Time 36.3 SECONDS (21.0-31.0) Partial Thromboplastin Ratio 1.4 Anion Gap 10.0 mmol/L (3-11) Est Creatinine Clear Calc Drug Dose 16.7 ml/min Estimated GFR () 11.9 Estimated GFR (Non- 10.3 BUN/Creatinine Ratio 5.1 (10-20) Calcium Level 9.2 mg/dl (8.5-10.1) Total Creatine Kinase 17 U/L (39-308) Creatine Kinase MB 0.8 ng/ml (0.5-3.6) Creatine Kinase MB Ratio 4.7 (0-3.0) Test 06/12/16 11:57 06/12/16 12:42 Bedside Glucose 70 mg/dl (70-99) 79 mg/dl (70-99) Allergies Coded Allergies: No Known Allergies (Verified , 06/02/16) Medications Current Inpatient Medications Medications (Trade) Dose Ordered Sig/Eliseo Route Start Time Stop Time Status Last Admin Dose Admin Polyethylene (Miralax Powder Packet) 17 gm DAILY PO 06/03/16 08:00 07/03/16 08:59 06/09/16 07:50 17 GM Allopurinol (Zyloprim Tab) 100 mg HS PO 06/02/16 21:00 07/02/16 20:59 06/11/16 20:31 100 MG Aspirin (Ecotrin Tab) 81 mg QAM PO 06/03/16 08:00 07/03/16 08:59 Future hold 06/12/16 09:13 81 MG Atorvastatin Calcium (Lipitor Tab) 20 mg DAILY PO 06/03/16 08:00 07/03/16 08:59 06/12/16 09:14 20 MG Calcium Acetate (Phoslo Cap) 667 mg TIDM PO 06/02/16 17:00 07/02/16 16:59 06/12/16 13:17 667 MG Furosemide (Lasix Tab) 40 mg DAILY PO 06/03/16 08:00 07/03/16 08:59 06/12/16 09:14 40 MG Ipratropium [place] (Atrovent Hfa Inhaler) 2 puffs QID PRN INH 06/02/16 12:30 07/02/16 12:29 Albuterol/ Ipratropium (Duoneb) 3 ml Q4H PRN INH 06/02/16 12:30 07/02/16 12:29 06/09/16 22:49 3 ML Meclizine HCl (Antivert Tab) 25 mg Q4H PRN PO 06/02/16 12:30 07/02/16 12:29 Tamsulosin HCl (Flomax Cap) 0.4 mg HS PO 06/02/16 21:00 07/02/16 20:59 06/11/16 20:33 0.4 MG Cholecalciferol (Vitamin D Tab) 2,000 inter.unit QAM PO 06/03/16 08:00 07/03/16 08:59 06/12/16 09:16 2,000 INTER.UNIT Insulin Detemir (Levemir Flexpen/ FlexTouch) 80 unit HS SC 06/02/16 21:00 07/02/16 20:59 06/11/16 20:39 80 UNIT Ranitidine HCl (zANTac TAB) 300 mg QAM PO 06/03/16 08:00 07/03/16 08:59 06/12/16 09:16 300 MG Oxycodone/ Acetaminophen 1 tab 1 tab Q4H PRN PO 06/02/16 12:30 06/16/16 12:29 06/09/16 07:47 1 TAB Piperacillin Sod/ Tazobactam Sod/ Dextrose (Zosyn Iv/D5 100ml) 120 ml @ 30 mls/hr Q12H IV 06/02/16 20:00 07/14/16 19:59 06/12/16 09:32 30 MLS/HR Piperacillin Sod/ Tazobactam Sod (Consult) 1 ea UD PRN N/A 06/02/16 15:00 07/02/16 14:59 Vancomycin HCl (Consult) 1 ea UD PRN N/A 06/02/16 15:00 07/02/16 14:59 Glucose (Glucose 40% Gel) 15-30 GRAMS 15 GRAMS... UD PRN PO 06/02/16 17:00 07/02/16 16:59 Glucose (Glucose Chew Tab) 4-8 Tablets 4 Tabl... UD PRN PO 06/02/16 17:00 07/02/16 16:59 Dextrose (Dextrose 50% 50ML Syringe) 25-50ML OF 50% DW IV FOR... UD PRN IV 06/02/16 17:00 07/02/16 16:59 06/12/16 06:53 50 ML Glucagon (Glucagon Inj) 1 mg UD PRN SQ 06/02/16 17:00 07/02/16 16:59 Insulin Aspart (novoLOG ASPART) SLIDING SCALE If C... ACHS SC 06/02/16 21:00 07/02/16 20:59 06/11/16 08:01 6 UNITS Acetaminophen (Tylenol Tab) 650 mg Q4H PRN PO 06/03/16 14:30 07/03/16 14:29 06/07/16 10:52 650 MG Al Hydrox/Mg Hydrox/Simethicone (Maalox Max Susp) 15 ml Q4H PRN PO 06/03/16 14:30 07/03/16 14:29 06/09/16 23:46 15 ML Magnesium Hydroxide (Milk Of Magnesia Susp) 30 ml Q12H PRN PO 06/03/16 14:30 07/03/16 14:29 Ondansetron HCl (Zofran Inj) 4 mg Q6H PRN IV 06/03/16 14:30 07/03/16 14:29 06/05/16 15:11 4 MG Oxycodone/ Acetaminophen (Percocet 5-325mg Tab) 2 tab Q4H PRN PO 06/03/16 14:30 06/17/16 14:29 06/10/16 23:40 2 TAB Metoclopramide HCl (Reglan Inj) 5 mg Q6H PRN IV 06/03/16 14:30 07/03/16 14:29 06/05/16 17:22 5 MG Trazodone HCl (Desyrel Tab) 100 mg HS PO 06/05/16 21:00 07/05/16 20:59 06/11/16 20:31 100 MG Chlordiazepoxide (Librium Cap) 10 mg BID PO 06/06/16 09:00 07/06/16 08:59 06/12/16 09:20 10 MG Trazodone HCl (Desyrel Tab) 25 mg HS PO 06/05/16 21:00 07/05/16 20:59 06/11/16 20:32 25 MG Metoprolol Succinate 75 mg 75 mg QAM PO 06/08/16 09:00 07/08/16 08:59 06/12/16 09:15 75 MG Azithromycin 250 mg/Dextrose 252.5 ml @ 125 mls/hr DAILY@0900 IV 06/09/16 09:00 06/15/16 08:59 06/12/16 09:55 125 MLS/HR Heparin Sodium/ Dextrose (Heparin 25,000 Unit/500ml D5W) 500 ml @ 47 mls/hr [id number] PRN IV 06/08/16 15:05 07/08/16 15:04 Future hold 06/12/16 11:13 47 MLS/HR Hydralazine HCl (HydrALAZINE INJ) 10 mg Q6H PRN IV. 06/09/16 18:45 07/09/16 18:44 06/12/16 05:53 10 MG Nitroglycerin (Nitrostat Tab) 0.4 mg PRN PRN SL 06/10/16 00:15 07/10/16 00:14 06/10/16 00:22 0.4 MG Lisinopril (Zestril Tab) 40 mg QAM PO 06/10/16 12:00 07/10/16 11:59 06/12/16 09:17 40 MG Enteral Nutritional Formula (Boost Breeze Nutritional Drink) 1 box AC PO 06/10/16 16:15 07/10/16 16:14 06/10/16 17:18 1 BOX Amlodipine Besylate (Norvasc Tab) 10 mg QAM PO 06/12/16 09:00 07/12/16 08:59 06/12/16 09:15 10 MG Impression (1) End-stage renal disease on hemodialysis (2) Cellulitis of right foot (3) Sepsis (4) Monoclonal gammopathy (5) Diabetes mellitus, type II Bre is a 75-year-old male with end-stage renal disease on hemodialysis Tuesday, Tuesday, Tuesday at [facility] dialysis unit. Medical history notable for hypertension, diabetes, MGUS. He was admitted to the hospital on with nausea and vomiting for few days as well as worsening right lower extremity chronic infected diabetic ulcer. 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 Wound culture grew MSSA and gram negative and blood culture was negative. 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 He was scheduled for fistulogram on 06/07/2016, however the procedure was canceled secondary to hypoxia and tachycardia. CTA chest was negative for PE but did reveal right sided pneumonia. He was subsequently diagnosed with new a flutter and started on anticoagulation. Heparin subsequently held due to nose bleed. Recommendations -- Minimized obligatory intake -- Monitor metabolic profile daily while inpatient -- Renal diet -- HD MWF -- Fistulogram per vascular surgery schedule
--- NOTE | 2016-06-12 17:53 | Progress Note ---
Subjective Date of Service: Jun 12, 2016. Subjective Pt evaluation today including: conversation w/ patient, chart review, lab review, review of studies patient seen at bedside today, he was having some pain to the right foot - right LE was not elevated, recommend pillow under foot and leg for comfort. Otherwise patient doing OK, foot remains stable with much improved edema and erythema, WBC down today from previous day. Problem List Medical Problems: (1) Cellulitis of right foot Status: Acute (2) Sepsis Status: Acute Objective Vital Signs Date Time Temp Pulse Resp B/P Pulse Ox O2 Delivery O2 Flow Rate FiO2 06/12/16 15:15 36.8 77 16 153/67 95 Room Air 06/12/16 10:00 138/65 06/12/16 07:30 94 Room Air 06/12/16 07:17 36.6 74 16 171/63 94 Room Air 06/12/16 05:52 85 176/72 06/11/16 23:50 Room Air 06/11/16 23:12 36.8 77 18 184/86 95 Room Air Physical Exam Skin: + pertinent finding (right foot - 2 sites present, plantar lateral site is where the prior abscess/ulceration was located, the area has some denuded tissue that will need debrided at bedside, patient only wanted a dressing change today, but will debride at bedside if patient allows; dorsal later incision has all sutures removed and area at distal aspect of incision with a small dehissed area - was the prior site of the packing that was removed post op , other enriquez insicion site is fully healed, will leave to heal by secondary intent as wound care stated no vac is needed over area, overall swelling and erythema greatly improved and reduced.) Laboratory Results Last 24 Hours Test 06/11/16 20:53 06/12/16 05:15 06/12/16 07:16 06/12/16 11:57 Bedside Glucose 105 mg/dl 120 mg/dl 70 mg/dl White Blood Count 13.53 K/uL Red Blood Count 2.59 M/uL Hemoglobin 7.9 g/dL Hematocrit 24.0 % Mean Corpuscular Volume 92.7 fL Mean Corpuscular Hemoglobin 30.5 pg Mean Corpuscular Hemoglobin Concent 32.9 g/dl Platelet Count 460 K/uL Mean Platelet Volume 8.2 fL Neutrophils (%) (Auto) 71.6 % Lymphocytes (%) (Auto) 12.5 % Monocytes (%) (Auto) 13.5 % Eosinophils (%) (Auto) 1.5 % Basophils (%) (Auto) 0.2 % Neutrophils # (Auto) 9.69 K/uL Lymphocytes # (Auto) 1.69 K/uL Monocytes # (Auto) 1.82 K/uL Eosinophils # (Auto) 0.20 K/uL Basophils # (Auto) 0.03 K/uL RDW Standard Deviation 50.2 fL RDW Coefficient of Variation 15.0 % Immature Granulocyte % (Auto) 0.7 % Immature Granulocyte # (Auto) 0.10 K/uL Polychromasia 1+ Prothrombin Time 17.2 SECONDS Prothromb Time International Ratio 1.6 Activated Partial Thromboplast Time 36.3 SECONDS Partial Thromboplastin Ratio 1.4 Sodium Level 134 mmol/L Potassium Level 3.9 mmol/L Chloride Level 95 mmol/L Carbon Dioxide Level 29 mmol/L Anion Gap 10.0 mmol/L Blood Urea Nitrogen 26 mg/dl Creatinine 5.10 mg/dl Est Creatinine Clear Calc Drug Dose 16.7 ml/min Estimated GFR () 11.9 Estimated GFR (Non- 10.3 BUN/Creatinine Ratio 5.1 Random Glucose 43 mg/dl Calcium Level 9.2 mg/dl Total Creatine Kinase 17 U/L Creatine Kinase MB 0.8 ng/ml Creatine Kinase MB Ratio 4.7 Test 06/12/16 12:42 06/12/16 17:00 06/12/16 17:27 Bedside Glucose 79 mg/dl 112 mg/dl Assessment and Plan 1. right foot POD 9 - I and D, 5th metatarsal head resection, ulcer debridement - improved erythema and swelling, post xrays stable and show 5th metatarsal head resection ; right foot dressing changed today, foot improving, continue to elevate right foot with pillow and recommend partial weightbearing at this time time, appreciate ID recs, pathology stating acute osteomyelitis right 5th metatarsal head, will continue dressings with adaptic or xerform over incision laterally and previous ulceration at plantar 5th metatarsal, will allow area to continue to heal by 2ndary intent, overall the foot is greatly improved, from a podiatry stand point patient is stable for d/c, no further surgical d bridements are planned, will recommend to continue local wound care to the area , patient will need f/u with me placed post d/c from continued care after his surgery Continued [facility] stay due to: multiple IV medications needed Discharge planning: uncertain
[2016-06-12 17:58] LABS: PARTIAL THROMBOPLASTIN RATIO 2.3
--- NOTE | 2016-06-12 20:01 | Hospitalist Progress Note ---
Hospitalist Progress Note Date of Service Jun 12, 2016. Subjective Pt evaluation today including: conversation w/ patient, physical exam, chart review, lab review This is a 75-year-old male patient with diabetes mellitus undergoing hemodialysis for end-stage renal disease. 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 The patient developed hypoxia with A. fib and RVR and was transferred to the intensive care unit where he was found to have pulmonary edema with no evidence of DVT or pulmonary embolism. The patient was placed on BiPAP and underwent dialysis and improved significant. He did not require intubation or invasive monitoring and did not require arterial or central access. The patient was transferred to the medical floor where he was seen today. He has a plethora of chronic complaints but overall states that he is improving day today. He still has pain in his right foot but indicates is much better than yesterday and seems to be improving. The patient also has neuropathy of the left hand and is wearing a work glove for desensitization. He denies any fever or chills. He has no rigors. No acute shortness of breath. No wheezes. He denies nausea or vomiting. When asked about appetite he replies "I eat what I need to eat ". He has no acute complaints Constitutional: No fever, No sweats, No weakness Respiratory: No cough, No sputum Cardiovascular: No chest pain Abdomen: No diarrhea, No nausea, No vomiting Musculoskeletal: No calf pain Neurologic: No vertigo Heme: No abnormal bleeding/bruising Skin: No rash All Other Systems: Reviewed and Negative Medications Current Inpatient Medications Medications (Trade) Dose Ordered Sig/Eliseo Route Start Time Stop Time Status Last Admin Dose Admin Polyethylene (Miralax Powder Packet) 17 gm DAILY PO 06/03/16 08:00 07/03/16 08:59 06/09/16 07:50 17 GM Allopurinol (Zyloprim Tab) 100 mg HS PO 06/02/16 21:00 07/02/16 20:59 06/11/16 20:31 100 MG Aspirin (Ecotrin Tab) 81 mg QAM PO 06/03/16 08:00 07/03/16 08:59 Future hold 06/12/16 09:13 81 MG Atorvastatin Calcium (Lipitor Tab) 20 mg DAILY PO 06/03/16 08:00 07/03/16 08:59 06/12/16 09:14 20 MG Calcium Acetate (Phoslo Cap) 667 mg TIDM PO 06/02/16 17:00 07/02/16 16:59 06/12/16 18:26 667 MG Furosemide (Lasix Tab) 40 mg DAILY PO 06/03/16 08:00 07/03/16 08:59 06/12/16 09:14 40 MG Ipratropium [place] (Atrovent Hfa Inhaler) 2 puffs QID PRN INH 06/02/16 12:30 07/02/16 12:29 Albuterol/ Ipratropium (Duoneb) 3 ml Q4H PRN INH 06/02/16 12:30 07/02/16 12:29 06/09/16 22:49 3 ML Meclizine HCl (Antivert Tab) 25 mg Q4H PRN PO 06/02/16 12:30 07/02/16 12:29 Tamsulosin HCl (Flomax Cap) 0.4 mg HS PO 06/02/16 21:00 07/02/16 20:59 06/11/16 20:33 0.4 MG Cholecalciferol (Vitamin D Tab) 2,000 inter.unit QAM PO 06/03/16 08:00 07/03/16 08:59 06/12/16 09:16 2,000 INTER.UNIT Insulin Detemir (Levemir Flexpen/ FlexTouch) 80 unit HS SC 06/02/16 21:00 07/02/16 20:59 06/11/16 20:39 80 UNIT Ranitidine HCl (zANTac TAB) 300 mg QAM PO 06/03/16 08:00 07/03/16 08:59 06/12/16 09:16 300 MG Oxycodone/ Acetaminophen 1 tab 1 tab Q4H PRN PO 06/02/16 12:30 06/16/16 12:29 06/09/16 07:47 1 TAB Piperacillin Sod/ Tazobactam Sod/ Dextrose (Zosyn Iv/D5 100ml) 120 ml @ 30 mls/hr Q12H IV 06/02/16 20:00 07/14/16 19:59 06/12/16 09:32 30 MLS/HR Piperacillin Sod/ Tazobactam Sod (Consult) 1 ea UD PRN N/A 06/02/16 15:00 07/02/16 14:59 Vancomycin HCl (Consult) 1 ea UD PRN N/A 06/02/16 15:00 07/02/16 14:59 Glucose (Glucose 40% Gel) 15-30 GRAMS 15 GRAMS... UD PRN PO 06/02/16 17:00 07/02/16 16:59 Glucose (Glucose Chew Tab) 4-8 Tablets 4 Tabl... UD PRN PO 06/02/16 17:00 07/02/16 16:59 Dextrose (Dextrose 50% 50ML Syringe) 25-50ML OF 50% DW IV FOR... UD PRN IV 06/02/16 17:00 07/02/16 16:59 06/12/16 06:53 50 ML Glucagon (Glucagon Inj) 1 mg UD PRN SQ 06/02/16 17:00 07/02/16 16:59 Insulin Aspart (novoLOG ASPART) SLIDING SCALE If C... ACHS SC 06/02/16 21:00 07/02/16 20:59 06/12/16 18:37 1 UNITS Acetaminophen (Tylenol Tab) 650 mg Q4H PRN PO 06/03/16 14:30 07/03/16 14:29 06/07/16 10:52 650 MG Al Hydrox/Mg Hydrox/Simethicone (Maalox Max Susp) 15 ml Q4H PRN PO 06/03/16 14:30 07/03/16 14:29 06/09/16 23:46 15 ML Magnesium Hydroxide (Milk Of Magnesia Susp) 30 ml Q12H PRN PO 06/03/16 14:30 07/03/16 14:29 Ondansetron HCl (Zofran Inj) 4 mg Q6H PRN IV 06/03/16 14:30 07/03/16 14:29 06/05/16 15:11 4 MG Oxycodone/ Acetaminophen (Percocet 5-325mg Tab) 2 tab Q4H PRN PO 06/03/16 14:30 06/17/16 14:29 06/10/16 23:40 2 TAB Metoclopramide HCl (Reglan Inj) 5 mg Q6H PRN IV 06/03/16 14:30 07/03/16 14:29 06/05/16 17:22 5 MG Trazodone HCl (Desyrel Tab) 100 mg HS PO 06/05/16 21:00 07/05/16 20:59 06/11/16 20:31 100 MG Chlordiazepoxide (Librium Cap) 10 mg BID PO 06/06/16 09:00 07/06/16 08:59 06/12/16 09:20 10 MG Trazodone HCl (Desyrel Tab) 25 mg HS PO 06/05/16 21:00 07/05/16 20:59 06/11/16 20:32 25 MG Metoprolol Succinate 75 mg 75 mg QAM PO 06/08/16 09:00 07/08/16 08:59 06/12/16 09:15 75 MG Azithromycin 250 mg/Dextrose 252.5 ml @ 125 mls/hr DAILY@0900 IV 06/09/16 09:00 06/15/16 08:59 06/12/16 09:55 125 MLS/HR Heparin Sodium/ Dextrose (Heparin 25,000 Unit/500ml D5W) 500 ml @ 47 mls/hr [id number] PRN IV 06/08/16 15:05 07/08/16 15:04 Future hold 06/12/16 18:39 47 MLS/HR Hydralazine HCl (HydrALAZINE INJ) 10 mg Q6H PRN IV. 06/09/16 18:45 07/09/16 18:44 06/12/16 05:53 10 MG Nitroglycerin (Nitrostat Tab) 0.4 mg PRN PRN SL 06/10/16 00:15 07/10/16 00:14 06/10/16 00:22 0.4 MG Lisinopril (Zestril Tab) 40 mg QAM PO 06/10/16 12:00 07/10/16 11:59 06/12/16 09:17 40 MG Enteral Nutritional Formula (Boost Breeze Nutritional Drink) 1 box AC PO 06/10/16 16:15 07/10/16 16:14 06/10/16 17:18 1 BOX Amlodipine Besylate (Norvasc Tab) 10 mg QAM PO 06/12/16 09:00 07/12/16 08:59 06/12/16 09:15 10 MG Objective Vital Signs Date Time Temp Pulse Resp B/P Pulse Ox O2 Delivery O2 Flow Rate FiO2 06/12/16 15:15 36.8 77 16 153/67 95 Room Air 06/12/16 10:00 138/65 06/12/16 07:30 94 Room Air 06/12/16 07:17 36.6 74 16 171/63 94 Room Air 06/12/16 05:52 85 176/72 06/11/16 23:50 Room Air 06/11/16 23:12 36.8 77 18 184/86 95 Room Air Physical Exam Notes: GENERAL : No acute distress. Cantankerous EYES: No icterus, gaze conjugate. Pupils equal NOSE: No evidence of epistaxis MOUTH: No lesions or candidiasis. Mucosa moist NECK: Supple LUNGS: CTA B/L, no wheezes, rales or rhonchi HEART: Regular, rate controlled. Appears to be in sinus rhythm with a rate in 70s on my exam ABDOMEN: Soft, NT, ND, BS Present. EXTREMITIES: Bilateral LE edema, pedal pulses intact and equal bilaterally. Dressing in place to right foot NEURO: A&OX3 Laboratory Results Last 24 Hours Test 06/11/16 20:53 06/12/16 05:15 06/12/16 07:16 06/12/16 11:57 Bedside Glucose 105 mg/dl 120 mg/dl 70 mg/dl White Blood Count 13.53 K/uL Red Blood Count 2.59 M/uL Hemoglobin 7.9 g/dL Hematocrit 24.0 % Mean Corpuscular Volume 92.7 fL Mean Corpuscular Hemoglobin 30.5 pg Mean Corpuscular Hemoglobin Concent 32.9 g/dl Platelet Count 460 K/uL Mean Platelet Volume 8.2 fL Neutrophils (%) (Auto) 71.6 % Lymphocytes (%) (Auto) 12.5 % Monocytes (%) (Auto) 13.5 % Eosinophils (%) (Auto) 1.5 % Basophils (%) (Auto) 0.2 % Neutrophils # (Auto) 9.69 K/uL Lymphocytes # (Auto) 1.69 K/uL Monocytes # (Auto) 1.82 K/uL Eosinophils # (Auto) 0.20 K/uL Basophils # (Auto) 0.03 K/uL RDW Standard Deviation 50.2 fL RDW Coefficient of Variation 15.0 % Immature Granulocyte % (Auto) 0.7 % Immature Granulocyte # (Auto) 0.10 K/uL Polychromasia 1+ Prothrombin Time 17.2 SECONDS Prothromb Time International Ratio 1.6 Activated Partial Thromboplast Time 36.3 SECONDS Partial Thromboplastin Ratio 1.4 Sodium Level 134 mmol/L Potassium Level 3.9 mmol/L Chloride Level 95 mmol/L Carbon Dioxide Level 29 mmol/L Anion Gap 10.0 mmol/L Blood Urea Nitrogen 26 mg/dl Creatinine 5.10 mg/dl Est Creatinine Clear Calc Drug Dose 16.7 ml/min Estimated GFR () 11.9 Estimated GFR (Non- 10.3 BUN/Creatinine Ratio 5.1 Random Glucose 43 mg/dl Calcium Level 9.2 mg/dl Total Creatine Kinase 17 U/L Creatine Kinase MB 0.8 ng/ml Creatine Kinase MB Ratio 4.7 Test 06/12/16 12:42 06/12/16 17:00 06/12/16 17:27 Bedside Glucose 79 mg/dl 112 mg/dl Activated Partial Thromboplast Time 58.7 SECONDS Partial Thromboplastin Ratio 2.3 Diagnostic Results CHEST 2 VIEWS ROUTINE CLINICAL HISTORY: Reassess right sided consolidation COMPARISON STUDY: Chest radiograph and chest CT June 07, 2016. FINDINGS: There is no pneumothorax. Mild cardiomegaly is unchanged. There is no evidence for pulmonary edema. Right lung consolidation shown on prior exam of June 07, 2016 has significantly improved. There is residual airspace opacity. No cavitation is identified. There are trace bilateral pleural effusions. IMPRESSION: 1. Marked improvement in right lung pneumonia since exam of June 07, 2016. Mild residual airspace opacity. 2. Trace bilateral pleural effusions. 3. Pulmonary vascular congestion. Electronically signed by: Adrian Fox M.D. 06/11/2016 5:28 PM Dictated Date/Time: 06/11/2016 5:26 PM Assessment and Plan RIGHT DIABETIC FOOT INFECTION Growing MSSA, enterococcus, Bacteroides ID consulted Surgical debridement 06/03 Wound care following Continue IV antibiotics for now per infectious disease - currently Zosyn and azithromycin dose of vancomycin yesterday Per ID no, most likely will transition to IV daptomycin and Flagyl Continue to follow wound care post discharge ATRIAL FIBRILLATION Currently in normal sinus rhythm which is rate controlled Continues on heparin drip per protocol Continue metoprolol succinate HYPOXIA History of tobacco abuse 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 Chest x-ray and CT chest show probable right lower lobe pneumonia Continue Zosyn and azithromycin DIABETES MELLITUS Low sugar this morning requiring an amp of D50 Continue levemir and sliding scale insulin with NovoLog END-STAGE RENAL DISEASE Scheduled hemodialysis Tuesday Nephrology consulted Appreciate Dr. Hardin's input ANEMIA Hemoglobin currently 7.9 Stable from 06/10/16 Continue to follow serial labs HYPERTENSION Continue medications as titrated by nephrology Pressure is better controlled today To follow clinically Vital signs per protocol DEPRESSION/ANXIETY Continue Librium and Seroquel GI PROPHYLAXIS Continue Zantac DVT PROPHYLAXIS Continue on heparin Limited ambulation secondary to right foot surgery Increase ambulation as tolerated Thank you for including us in the care of this patient. Please refer to Dr. Leigh' s addendum for further recommendations
[2016-06-12] MEDS: TRAZODONE HCL 50 MG TAB PO SCH (21:51)
[2016-06-12] MEDS: TRAZODONE HCL 100 MG TAB PO SCH (21:52)
[2016-06-12] MEDS: ALLOPURINOL 100 MG TAB PO SCH (21:52)
[2016-06-12] MEDS: TAMSULOSIN HCL 0.4 MG CAP PO SCH (21:52)
[2016-06-12 23:00] VITALS: BP 181/79; PULSE 81; TEMP 36.9; O2SAT 92
[2016-06-12] MEDS ORDERED: NURSING VERBAL MED ORDER ONE (23:15)
[2016-06-13] VITALS (8 sets, daily range): BP systolic 127–181; BP diastolic 56–75; PULSE 55–86; TEMP 36.6–36.7; O2SAT 92–95
[2016-06-13] MEDS: OXYCODONE/ACETAMINOPHEN 5-325 TAB PO PRN ×2 (00:02→08:19)
[2016-06-13] MEDS: INSULIN DETEMIR FLEXPEN/FLEX TOUCH 100 UNITS/ML 3ML SC SCH ×2 (01:23→21:20)
[2016-06-13 07:20] LABS: PARTIAL THROMBOPLASTIN RATIO 2.7
[2016-06-13] MEDS: BOOST BREEZE NUTRITION DRINK 1 BOX PO SCH ×3 (08:00→17:15)
[2016-06-13] MEDS: HEPARIN 25,000 UNIT/500ML D5W 500 ML IV PRN ×4 (08:03→21:21)
[2016-06-13] MEDS: PIPERACILL/TAZOBAC IV 4.5 GM in DEXTROSE 5% 100ML 100 ML IV SCH ×2 (08:05→19:46)
[2016-06-13] MEDS: CHLORDIAZEPOXIDE 10 MG CAP PO SCH ×2 (08:18→20:42)
[2016-06-13] MEDS: FUROSEMIDE 40 MG TAB PO SCH (08:20)
[2016-06-13] MEDS: METOPROLOL SUCC 25MG EXT REL TAB PO SCH (08:20)
[2016-06-13] MEDS: POLYETHYLENE (MIRALAX) 17 GM PACK PO SCH (08:20)
[2016-06-13] MEDS: AMLODIPINE BESYLATE 5 MG TAB PO SCH (08:21)
[2016-06-13] MEDS: CALCIUM ACETATE 667MG GELCAP PO SCH ×3 (08:21→19:16)
[2016-06-13] MEDS: ATORVASTATIN 20 MG TAB PO SCH (08:21)
[2016-06-13] MEDS: ASPIRIN 81 MG ECTAB PO SCH (08:21)
[2016-06-13] MEDS: RANITIDINE HCL 150 MG TAB PO SCH (08:22)
[2016-06-13] MEDS: CHOLECALCIFEROL 1000 INTER.UNIT TAB PO SCH (08:22)
[2016-06-13] MEDS: LISINOPRIL 40 MG TAB PO SCH (08:23)
[2016-06-13] MEDS: INSULIN ASPART 100 UNITS/ML 3 ML PEN SC SCH ×4 (08:53→21:21)
--- NOTE | 2016-06-13 11:48 | Nephrology Progress Note ---
Nephrology Progress Note Date of Service Jun 13, 2016. Chief Complaint ESRD Subjective No acute events overnight. Bre states that he feels "worn out." Denies shortness of breath. No chest pain. Denies fevers or chills. Appetite is good. Review of Systems A complete review of systems was performed. Pertinent positives are noted above. All other systems are negative. Vital Signs Last 8 Hrs Date Time Temp Pulse Resp B/P Pulse Ox O2 Delivery O2 Flow Rate FiO2 06/13/16 10:19 77 16 151/73 93 Room Air 06/13/16 08:30 93 Room Air 06/13/16 07:55 36.6 77 16 174/75 92 Room Air I & O 24-Hour Column 06/13/16 08:00 Intake Total 1645 ml Balance 1645 ml Last Recorded Weight Weight (Kilograms): 112.800 Physical Exam General Appearance: WD/WN, no apparent distress Head: normocephalic, atraumatic Eyes: normal inspection, sclerae normal ENT: normal ENT inspection, pharynx normal Neck: supple, no JVD Respiratory/Chest: lungs clear, no respiratory distress, no accessory muscle use Cardiovascular: regular rate, rhythm, + systolic murmur Back: normal inspection Abdomen/GI: non tender, soft Extremities/Musculoskelatal: normal inspection, no pedal edema, + pertinent finding (AVF with thrill and bruit) Neurologic/Psych: alert, oriented x 3 Family History FH: diabetes mellitus AUNT FH: stroke GRANDMOTHER Negative for CKD / ESRD Social History Smoking Status: Unknown if ever smoked Drug Use: none Marital Status: Housing Status: lives with family Occupation: retired . Retired. Former smoker (2ppd x 45 years, quit 2002) Laboratory Results Past 24 Hours Test 06/12/16 11:57 06/12/16 12:42 06/12/16 17:00 06/12/16 17:27 Bedside Glucose 70 mg/dl (70-99) 79 mg/dl (70-99) 112 mg/dl (70-99) Activated Partial Thromboplast Time 58.7 SECONDS (21.0-31.0) Partial Thromboplastin Ratio 2.3 Test 06/12/16 20:40 06/13/16 06:45 06/13/16 08:14 06/13/16 11:29 Bedside Glucose 100 mg/dl (70-99) 134 mg/dl (70-99) 168 mg/dl (70-99) Activated Partial Thromboplast Time 71.1 SECONDS (21.0-31.0) Partial Thromboplastin Ratio 2.7 Allergies Coded Allergies: No Known Allergies (Verified , 06/02/16) Medications Current Inpatient Medications Medications (Trade) Dose Ordered Sig/Eliseo Route Start Time Stop Time Status Last Admin Dose Admin Polyethylene (Miralax Powder Packet) 17 gm DAILY PO 06/03/16 08:00 07/03/16 08:59 06/13/16 08:20 17 GM Allopurinol (Zyloprim Tab) 100 mg HS PO 06/02/16 21:00 07/02/16 20:59 06/12/16 21:52 100 MG Aspirin (Ecotrin Tab) 81 mg QAM PO 06/03/16 08:00 07/03/16 08:59 Future hold 06/13/16 08:21 81 MG Atorvastatin Calcium (Lipitor Tab) 20 mg DAILY PO 06/03/16 08:00 07/03/16 08:59 06/13/16 08:21 20 MG Calcium Acetate (Phoslo Cap) 667 mg TIDM PO 06/02/16 17:00 07/02/16 16:59 06/13/16 08:21 667 MG Furosemide (Lasix Tab) 40 mg DAILY PO 06/03/16 08:00 07/03/16 08:59 06/13/16 08:20 40 MG Ipratropium [place] (Atrovent Hfa Inhaler) 2 puffs QID PRN INH 06/02/16 12:30 07/02/16 12:29 Albuterol/ Ipratropium (Duoneb) 3 ml Q4H PRN INH 06/02/16 12:30 07/02/16 12:29 06/09/16 22:49 3 ML Meclizine HCl (Antivert Tab) 25 mg Q4H PRN PO 06/02/16 12:30 07/02/16 12:29 Tamsulosin HCl (Flomax Cap) 0.4 mg HS PO 06/02/16 21:00 07/02/16 20:59 06/12/16 21:52 0.4 MG Cholecalciferol (Vitamin D Tab) 2,000 inter.unit QAM PO 06/03/16 08:00 07/03/16 08:59 06/13/16 08:22 2,000 INTER.UNIT Insulin Detemir (Levemir Flexpen/ FlexTouch) 80 unit HS SC 06/02/16 21:00 07/02/16 20:59 06/11/16 20:39 80 UNIT Ranitidine HCl (zANTac TAB) 300 mg QAM PO 06/03/16 08:00 07/03/16 08:59 06/13/16 08:22 300 MG Oxycodone/ Acetaminophen 1 tab 1 tab Q4H PRN PO 06/02/16 12:30 06/16/16 12:29 06/13/16 08:19 1 TAB Piperacillin Sod/ Tazobactam Sod/ Dextrose (Zosyn Iv/D5 100ml) 120 ml @ 30 mls/hr Q12H IV 06/02/16 20:00 07/14/16 19:59 06/13/16 08:05 30 MLS/HR Piperacillin Sod/ Tazobactam Sod (Consult) 1 ea UD PRN N/A 06/02/16 15:00 07/02/16 14:59 Vancomycin HCl (Consult) 1 ea UD PRN N/A 06/02/16 15:00 07/02/16 14:59 Glucose (Glucose 40% Gel) 15-30 GRAMS 15 GRAMS... UD PRN PO 06/02/16 17:00 07/02/16 16:59 Glucose (Glucose Chew Tab) 4-8 Tablets 4 Tabl... UD PRN PO 06/02/16 17:00 07/02/16 16:59 Dextrose (Dextrose 50% 50ML Syringe) 25-50ML OF 50% DW IV FOR... UD PRN IV 06/02/16 17:00 07/02/16 16:59 06/12/16 06:53 50 ML Glucagon (Glucagon Inj) 1 mg UD PRN SQ 06/02/16 17:00 07/02/16 16:59 Insulin Aspart (novoLOG ASPART) SLIDING SCALE If C... ACHS SC 06/02/16 21:00 07/02/16 20:59 06/13/16 08:53 2 UNITS Acetaminophen (Tylenol Tab) 650 mg Q4H PRN PO 06/03/16 14:30 07/03/16 14:29 06/07/16 10:52 650 MG Al Hydrox/Mg Hydrox/Simethicone (Maalox Max Susp) 15 ml Q4H PRN PO 06/03/16 14:30 07/03/16 14:29 06/09/16 23:46 15 ML Magnesium Hydroxide (Milk Of Magnesia Susp) 30 ml Q12H PRN PO 06/03/16 14:30 07/03/16 14:29 Ondansetron HCl (Zofran Inj) 4 mg Q6H PRN IV 06/03/16 14:30 07/03/16 14:29 06/05/16 15:11 4 MG Oxycodone/ Acetaminophen (Percocet 5-325mg Tab) 2 tab Q4H PRN PO 06/03/16 14:30 06/17/16 14:29 06/13/16 00:02 2 TAB Metoclopramide HCl (Reglan Inj) 5 mg Q6H PRN IV 06/03/16 14:30 07/03/16 14:29 06/05/16 17:22 5 MG Trazodone HCl (Desyrel Tab) 100 mg HS PO 06/05/16 21:00 07/05/16 20:59 06/12/16 21:52 100 MG Chlordiazepoxide (Librium Cap) 10 mg BID PO 06/06/16 09:00 07/06/16 08:59 06/13/16 08:18 10 MG Trazodone HCl (Desyrel Tab) 25 mg HS PO 06/05/16 21:00 07/05/16 20:59 06/12/16 21:51 25 MG Metoprolol Succinate 75 mg 75 mg QAM PO 06/08/16 09:00 07/08/16 08:59 06/13/16 08:20 75 MG Azithromycin 250 mg/Dextrose 252.5 ml @ 125 mls/hr DAILY@0900 IV 06/09/16 09:00 06/15/16 08:59 06/12/16 09:55 125 MLS/HR Heparin Sodium/ Dextrose (Heparin 25,000 Unit/500ml D5W) 500 ml @ 45 mls/hr Q11H7M PRN IV 06/08/16 15:05 07/08/16 15:04 Future hold 06/13/16 10:39 45 MLS/HR Hydralazine HCl (HydrALAZINE INJ) 10 mg Q6H PRN IV. 06/09/16 18:45 07/09/16 18:44 06/12/16 23:15 10 MG Nitroglycerin (Nitrostat Tab) 0.4 mg PRN PRN SL 06/10/16 00:15 07/10/16 00:14 06/10/16 00:22 0.4 MG Lisinopril (Zestril Tab) 40 mg QAM PO 06/10/16 12:00 07/10/16 11:59 06/13/16 08:23 40 MG Enteral Nutritional Formula (Boost Breeze Nutritional Drink) 1 box AC PO 06/10/16 16:15 07/10/16 16:14 06/10/16 17:18 1 BOX Amlodipine Besylate (Norvasc Tab) 10 mg QAM PO 06/12/16 09:00 07/12/16 08:59 06/13/16 08:21 10 MG Impression (1) End-stage renal disease on hemodialysis (2) Cellulitis of right foot (3) Sepsis (4) Monoclonal gammopathy (5) Diabetes mellitus, type II Bre is a 75-year-old male with end-stage renal disease on hemodialysis Tuesday, Tuesday, Tuesday at [facility] dialysis unit. Medical history notable for hypertension, diabetes mellitus, MGUS. He was admitted to the hospital on 06/02/16 with nausea and vomiting for few days as well as worsening right lower extremity chronic infected diabetic ulcer. 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 Wound culture grew MSSA and gram negative and blood culture was negative. 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 He was scheduled for fistulogram on 06/07/2016, however the procedure was canceled secondary to hypoxia and tachycardia. CTA chest was negative for PE but did reveal right sided pneumonia. He was subsequently diagnosed with new a flutter and started on anticoagulation. Recommendations -- HD tomorrow per [facility] schedule -- Check metabolic profile tomorrow AM -- Renal diet -- Transfuse 2 units PRBC with hemodialysis tomorrow for anemia then resume Epogen QHD -- Fistulogram per vascular surgery schedule
[2016-06-13] MEDS ORDERED: HEPARIN SOD (PORCINE) 1000 UNIT/ML 10 ML VIAL IV SCH (12:00)
[2016-06-13] MEDS: HEPARIN SOD (PORCINE) 1000 UNIT/ML 10 ML VIAL IV SCH ×7 (12:00→18:00)
[2016-06-13] MEDS: AZITHROMYCIN IV 250 MG in DEXTROSE 5% 250ML 250 ML IV SCH (12:51)
[2016-06-13 14:57] LABS: PARTIAL THROMBOPLASTIN RATIO 2.5
--- NOTE | 2016-06-13 15:46 | Hospitalist Progress Note ---
Hospitalist Progress Note Date of Service Jun 13, 2016. Subjective Pt evaluation today including: conversation w/ patient, physical exam, chart review, lab review, review of studies Pain: 6/10 pain to right foot PO Intake: Incrasing gradually Voiding: no voiding problems Patient seen at bedside. C/O 6/10 right foot pain. Minimal improvement with PO Percocet. No fever or chills. No nausea or vomiting. Bowel movement yesterday. No abdominal pain. Limited activity per nursing direction but patient willing to increase activity as tolerated. No other acute complaints today Additional Comments: A total of 12 systems was reviewed and is negative other than as listed above in the HPI All Other Systems: Reviewed and Negative Medications Current Inpatient Medications Medications (Trade) Dose Ordered Sig/Eliseo Route Start Time Stop Time Status Last Admin Dose Admin Polyethylene (Miralax Powder Packet) 17 gm DAILY PO 06/03/16 08:00 07/03/16 08:59 06/13/16 08:20 17 GM Allopurinol (Zyloprim Tab) 100 mg HS PO 06/02/16 21:00 07/02/16 20:59 06/12/16 21:52 100 MG Aspirin (Ecotrin Tab) 81 mg QAM PO 06/03/16 08:00 07/03/16 08:59 Future hold 06/13/16 08:21 81 MG Atorvastatin Calcium (Lipitor Tab) 20 mg DAILY PO 06/03/16 08:00 07/03/16 08:59 06/13/16 08:21 20 MG Calcium Acetate (Phoslo Cap) 667 mg TIDM PO 06/02/16 17:00 07/02/16 16:59 06/13/16 12:50 667 MG Furosemide (Lasix Tab) 40 mg DAILY PO 06/03/16 08:00 07/03/16 08:59 06/13/16 08:20 40 MG Ipratropium [place] (Atrovent Hfa Inhaler) 2 puffs QID PRN INH 06/02/16 12:30 07/02/16 12:29 Albuterol/ Ipratropium (Duoneb) 3 ml Q4H PRN INH 06/02/16 12:30 07/02/16 12:29 06/09/16 22:49 3 ML Meclizine HCl (Antivert Tab) 25 mg Q4H PRN PO 06/02/16 12:30 07/02/16 12:29 Tamsulosin HCl (Flomax Cap) 0.4 mg HS PO 06/02/16 21:00 07/02/16 20:59 06/12/16 21:52 0.4 MG Cholecalciferol (Vitamin D Tab) 2,000 inter.unit QAM PO 06/03/16 08:00 07/03/16 08:59 06/13/16 08:22 2,000 INTER.UNIT Insulin Detemir (Levemir Flexpen/ FlexTouch) 80 unit HS SC 06/02/16 21:00 07/02/16 20:59 06/11/16 20:39 80 UNIT Ranitidine HCl (zANTac TAB) 300 mg QAM PO 06/03/16 08:00 07/03/16 08:59 06/13/16 08:22 300 MG Oxycodone/ Acetaminophen 1 tab 1 tab Q4H PRN PO 06/02/16 12:30 06/16/16 12:29 06/13/16 08:19 1 TAB Piperacillin Sod/ Tazobactam Sod/ Dextrose (Zosyn Iv/D5 100ml) 120 ml @ 30 mls/hr Q12H IV 06/02/16 20:00 07/14/16 19:59 06/13/16 08:05 30 MLS/HR Piperacillin Sod/ Tazobactam Sod (Consult) 1 ea UD PRN N/A 06/02/16 15:00 07/02/16 14:59 Vancomycin HCl (Consult) 1 ea UD PRN N/A 06/02/16 15:00 07/02/16 14:59 Glucose (Glucose 40% Gel) 15-30 GRAMS 15 GRAMS... UD PRN PO 06/02/16 17:00 07/02/16 16:59 Glucose (Glucose Chew Tab) 4-8 Tablets 4 Tabl... UD PRN PO 06/02/16 17:00 07/02/16 16:59 Dextrose (Dextrose 50% 50ML Syringe) 25-50ML OF 50% DW IV FOR... UD PRN IV 06/02/16 17:00 07/02/16 16:59 06/12/16 06:53 50 ML Glucagon (Glucagon Inj) 1 mg UD PRN SQ 06/02/16 17:00 5/19/17 16:59 Insulin Aspart (novoLOG ASPART) SLIDING SCALE If C... ACHS SC 06/02/16 21:00 07/02/16 20:59 06/13/16 13:12 4 UNITS Acetaminophen (Tylenol Tab) 650 mg Q4H PRN PO 06/03/16 14:30 07/03/16 14:29 06/07/16 10:52 650 MG Al Hydrox/Mg Hydrox/Simethicone (Maalox Max Susp) 15 ml Q4H PRN PO 06/03/16 14:30 07/03/16 14:29 06/09/16 23:46 15 ML Magnesium Hydroxide (Milk Of Magnesia Susp) 30 ml Q12H PRN PO 06/03/16 14:30 07/03/16 14:29 Ondansetron HCl (Zofran Inj) 4 mg Q6H PRN IV 06/03/16 14:30 07/03/16 14:29 06/05/16 15:11 4 MG Oxycodone/ Acetaminophen (Percocet 5-325mg Tab) 2 tab Q4H PRN PO 06/03/16 14:30 06/17/16 14:29 06/13/16 00:02 2 TAB Metoclopramide HCl (Reglan Inj) 5 mg Q6H PRN IV 06/03/16 14:30 07/03/16 14:29 06/05/16 17:22 5 MG Trazodone HCl (Desyrel Tab) 100 mg HS PO 06/05/16 21:00 07/05/16 20:59 06/12/16 21:52 100 MG Chlordiazepoxide (Librium Cap) 10 mg BID PO 06/06/16 09:00 07/06/16 08:59 06/13/16 08:18 10 MG Trazodone HCl (Desyrel Tab) 25 mg HS PO 06/05/16 21:00 07/05/16 20:59 06/12/16 21:51 25 MG Metoprolol Succinate 75 mg 75 mg QAM PO 06/08/16 09:00 07/08/16 08:59 06/13/16 08:20 75 MG Azithromycin 250 mg/Dextrose 252.5 ml @ 125 mls/hr DAILY@0900 IV 06/09/16 09:00 06/15/16 08:59 06/13/16 12:51 125 MLS/HR Heparin Sodium/ Dextrose (Heparin 25,000 Unit/500ml D5W) 500 ml @ 45 mls/hr Q11H7M PRN IV 06/08/16 15:05 07/08/16 15:04 Future hold 06/13/16 10:39 45 MLS/HR Hydralazine HCl (HydrALAZINE INJ) 10 mg Q6H PRN IV. 06/09/16 18:45 07/09/16 18:44 06/12/16 23:15 10 MG Nitroglycerin (Nitrostat Tab) 0.4 mg PRN PRN SL 06/10/16 00:15 07/10/16 00:14 06/10/16 00:22 0.4 MG Lisinopril (Zestril Tab) 40 mg QAM PO 06/10/16 12:00 07/10/16 11:59 06/13/16 08:23 40 MG Enteral Nutritional Formula (Boost Breeze Nutritional Drink) 1 box AC PO 06/10/16 16:15 07/10/16 16:14 06/10/16 17:18 1 BOX Amlodipine Besylate (Norvasc Tab) 10 mg QAM PO 06/12/16 09:00 07/12/16 08:59 06/13/16 08:21 10 MG Heparin Sodium (Porcine) (Heparin Iv Bolus) 2,000 unit TODAY@1200 IV 06/13/16 12:00 06/13/16 18:00 Heparin Sodium (Porcine) (Heparin Iv Bolus) 1,000 unit Q1H IV 06/13/16 12:00 06/13/16 18:00 Miscellaneous Information (Nursing Heparin Iv Rate Change) 1 ea ONE ONCE N/A 06/13/16 15:30 06/13/16 15:31 UNV Objective Vital Signs Date Time Temp Pulse Resp B/P Pulse Ox O2 Delivery O2 Flow Rate FiO2 06/13/16 10:19 77 16 151/73 93 Room Air 06/13/16 08:30 93 Room Air 06/13/16 07:55 36.6 77 16 174/75 92 Room Air 06/13/16 01:33 80 127/56 06/13/16 00:00 86 16 181/68 06/12/16 23:25 Room Air 06/12/16 23:00 36.9 81 20 181/79 92 Room Air 06/12/16 16:00 Room Air Physical Exam Notes: Vital Signs - as noted below Laboratory Data - as noted below Physical Exam: General - NAD Eyes - No icterus, gaze conjugate ENT - Mucosa moist, no lesions or candidiasis Neck - Supple, No JVD Lungs - No bronchospasm, rales, or rhonchi. Heart - Regular, rate controlled in the low 70s Abdomen - Soft, NT, ND, BS present Extremities - B/L edema, pedal pulses intact. Dressing intact to right foot Neuro - A&OX3 Laboratory Results Last 24 Hours Test 06/12/16 17:00 06/12/16 17:27 06/12/16 20:40 06/13/16 06:45 Bedside Glucose 112 mg/dl 100 mg/dl Activated Partial Thromboplast Time 58.7 SECONDS 71.1 SECONDS Partial Thromboplastin Ratio 2.3 2.7 Test 06/13/16 08:14 06/13/16 11:29 06/13/16 14:24 Bedside Glucose 134 mg/dl 168 mg/dl Activated Partial Thromboplast Time 63.9 SECONDS Partial Thromboplastin Ratio 2.5 Assessment and Plan RIGHT DIABETIC FOOT INFECTION Growing MSSA, enterococcus, Bacteroides ID consulted Surgical debridement 06/03 Wound care following Continue IV antibiotics for now per infectious disease - currently Zosyn and azithromycin dose of vancomycin yesterday - dialysis M/W/F Per ID no, most likely will transition to IV daptomycin and Flagyl Continue to follow wound care post discharge Percocet for pain - add Morphine 2mg IV PRN ATRIAL FIBRILLATION Currently in normal sinus rhythm which is rate controlled Continues on heparin drip - titrate per protocol Continue metoprolol succinate HYPOXIA History of tobacco abuse 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 Chest x-ray and CT chest show probable right lower lobe pneumonia Continue Zosyn and azithromycin Oxygenating well on room air DIABETES MELLITUS Continue levemir and sliding scale insulin with NovoLog Patient reports that he is slowly increasing his dietary intake END-STAGE RENAL DISEASE Scheduled hemodialysis Tuesday Nephrology consulted Appreciate Dr. Hardin's input ANEMIA Hemoglobin currently 7.9 Stable from 06/10/16 Anemia of chronic disease No hx of blood transfusion Epogen 06/04 and 06/11 Continue to follow serial labs HYPERTENSION Continue medications as titrated by nephrology Pressure is better controlled today Continue to follow clinically Vital signs per protocol DEPRESSION/ANXIETY Continue Librium and Seroquel Good pain control needed GI PROPHYLAXIS Continue Zantac DVT PROPHYLAXIS Continue on heparin Limited ambulation secondary to right foot surgery Increase ambulation as tolerated Please refer to Dr. Leigh's addendum for further recommendations Continued [facility] stay due to: multiple IV medications needed, home environment unsafe for pt Discharge planning: uncertain
[2016-06-13] MEDS: MoRPHine SULFATE 2 MG/ML CARP IV PRN (19:46)
[2016-06-13] MEDS: TRAZODONE HCL 100 MG TAB PO SCH (20:39)
[2016-06-13] MEDS: TRAZODONE HCL 50 MG TAB PO SCH (20:40)
[2016-06-13] MEDS: TAMSULOSIN HCL 0.4 MG CAP PO SCH (20:40)
[2016-06-13] MEDS: ALLOPURINOL 100 MG TAB PO SCH (20:41)
[2016-06-14] VITALS (27 sets, daily range): BP systolic 128–174; BP diastolic 53–74; PULSE 52–72; TEMP 36.3–36.8; O2SAT 92–98
[2016-06-14 05:53] LABS: HEMATOCRIT 24.3 % (42-52); MEAN CELL VOLUME 90.7 fL (80-100); MEAN CORPUSCULAR HEMOGLOBIN 29.9 pg (25-34); MEAN CORPUSCULAR HGB CONC 32.9 g/dl (32-36); PLATELET COUNT 432 K/uL (130-400); RED BLOOD COUNT 2.68 M/uL (4.7-6.1); WHITE BLOOD COUNT 14.07 K/uL (4.8-10.8)
[2016-06-14 06:14] LABS: PARTIAL THROMBOPLASTIN RATIO 2.9
[2016-06-14] MEDS ORDERED: NURSING DECISION MEDICATION ORDER SCH (06:15)
[2016-06-14] MEDS: HEPARIN 25,000 UNIT/500ML D5W 500 ML IV PRN ×6 (06:29→23:12)
[2016-06-14] MEDS: INSULIN ASPART 100 UNITS/ML 3 ML PEN SC SCH ×4 (06:30→21:00)
[2016-06-14] MEDS: GLUCOSE 40% GEL 15 GM TUBE PO PRN ×2 (06:31→07:02)
[2016-06-14 06:44] LABS: BUN/CREATININE RATIO 5.1 (10-20); CALCIUM 9.4 mg/dl (8.5-10.1); CREATININE 8.2 mg/dl (0.60-1.40)
--- NOTE | 2016-06-14 07:24 | Procedure Note ---
Pre-Mod Sedation Assessment General Date of Moderate Sedation: June 14, 2016. Vital Signs: Vital Signs Past 12 Hours Date Time Temp Pulse Resp B/P Pulse Ox O2 Delivery O2 Flow Rate FiO2 06/14/16 06:57 36.3 55 14 136/64 96 Room Air 06/13/16 23:16 36.7 62 16 147/62 93 Room Air 06/13/16 19:45 Room Air 06/13/16 19:32 36.7 72 18 159/67 93 Room Air Review Cardiovascular: regular rate, rhythm, + systolic murmur Abdomen: non tender, soft Lungs: lungs clear, no respiratory distress, no accessory muscle use Pre-Sedation Airway Assessment Oral Cavity: WNL Short Thick Neck: Yes Hx of Sleep Apnea: Yes Smoking Status: Former Smoker Mallampati Classification: Class I ASA Classification: Class II Notes The planned sedation has been discussed with the patient and consent obtained. I have identified the patient, determined the appropriateness of sedation and have assessed the patient immediately prior to the procedure. All medicine(s) and interventions are by my order.
--- NOTE | 2016-06-14 07:24 | Progress Note ---
Progress Note Date of Service June 14, 2016. Progress Note Patient for a fistulogram for a stenosis of his fistula. I have discussed the risks options and benefits of the procedure with the patient. The patient understands the risks options and benefits and agrees to the procedure. I have examined the patient, reviewed the History & Physical and in the interval since the performance of the History & Physical I have noted the following changes of clinical significance: No changes noted
[2016-06-14] MEDS ORDERED: FENTANYL CITRATE INJ 50 MCG/1 ML 2 ML VIAL ONE (07:39)
[2016-06-14] MEDS ORDERED: MIDAZOLAM HCL 1 MG/ML 2ML VIAL ONE (07:40)
[2016-06-14] MEDS ORDERED: MIDAZOLAM HCL 1 MG/ML 2ML VIAL IV ONE (08:24)
[2016-06-14] MEDS ORDERED: FENTANYL CITRATE INJ 50 MCG/1 ML 2 ML VIAL IV ONE (08:24)
[2016-06-14] MEDS: CALCIUM ACETATE 667MG GELCAP PO SCH ×3 (08:30→17:45)
[2016-06-14] MEDS ORDERED: OPTIRAY 300 IV ONE (08:45)
[2016-06-14] MEDS ORDERED: LIDOCAINE HCL 1% 20 ML VIAL INJ ONE (08:45)
--- NOTE | 2016-06-14 08:48 | [facility] Post Operative Brief Note ---
Immediate Operative Summary Operative Date June 14, 2016. Pre-Operative Diagnosis Malfunctioning Fistula Post-Operative Diagnosis Same Procedure(s) Performed Fistulogram Percutaneous Transluminal Angioplasty Venous Moderate Sedation [id number] Surgeon Misha Mushroom Sorter Grader Surgeon(s) None Estimated Blood Loss 3 Findings no residual stenosis Specimens None Anesthesia Local with conscious sedation Complication(s) None Disposition Recovery Room / PACU
--- NOTE | 2016-06-14 08:51 | Procedure Note ---
Post-Moderate Sedation Plan General Date of Moderate Sedation June 14, 2016. Vital Signs: Vital Signs Past 12 Hours Date Time Temp Pulse Resp B/P Pulse Ox O2 Delivery O2 Flow Rate FiO2 06/14/16 07:42 36.3 18 150/58 93 Room Air 06/14/16 07:25 36.3 55 18 150/58 93 Room Air 06/14/16 06:57 36.3 55 14 136/64 96 Room Air 06/13/16 23:16 36.7 62 16 147/62 93 Room Air Review - Discharge Plan Post Moderate Sedation Plan: On clinical assessment, the patient appears to have tolerated the conscious sedation without complications. Patient is recovering as anticipated. Patient will continue to be monitored by nursing and may be discharged when conscious sedation discharge criteria are met.
[2016-06-14] MEDS: CHLORDIAZEPOXIDE 10 MG CAP PO SCH ×2 (09:00→21:35)
[2016-06-14] MEDS: BOOST BREEZE NUTRITION DRINK 1 BOX PO SCH ×3 (09:32→17:15)
--- NOTE | 2016-06-14 09:32 | DIAGNOSTIC IMAGING REPORT ---
DATE OF PROCEDURE: 06/14/2016 PREOPERATIVE DIAGNOSIS: Stenosis of left forearm fistula. POSTOPERATIVE DIAGNOSIS: Same. PROCEDURES: Left forearm fistulogram and MAINTENANCE GROUNDSKEEPER of venous. ANESTHESIA: Conscious sedation, 10 minutes. SURGEON: Dr. Zion Cabral. ANESTHETIC: Local with conscious sedation. PROCEDURE INDICATIONS: The patient is a 75-year-old gentleman with a left arm fistula, which was found to have a stenosis. Fistulogram was recommended with possible intervention. He understood the risks, options and benefits and agreed to have this procedure. DESCRIPTION OF PROCEDURE: The patient was taken to the angio suite and placed in supine position. After the left arm was prepped and draped in a sterile manner, local anesthetic was administered. Percutaneous puncture was made on the left forearm fistula. A micropuncture needle was used. The catheter was then inserted. A fistulogram was performed. The fistulogram on the fistula showed it to be widely patent except to the antecubital fossa, above and below, where there were 2 areas of significant narrowing, the one below the elbow was a web-like narrowing. Just above the area, there was 90% narrowing of the vein itself. The rest of the venous outflow all the way up to and including the superior vena cava was patent. At that point, the sheath was exchanged to a 5-Czech sheath. A 0.035 wire was then inserted. This passed through the lesions. A 6 x 4 balloon was then inserted and both lesions were dilated with a 6 x 4 balloon to 10 atmospheres. The lesion below the elbow required 12 atmospheres of pressure. The post-dilatation fistulogram showed these lesions to be widely patent with no residual stenosis. There was a much better thrill in the fistula. At that point, the wire and sheath were removed. Pressure was applied. Adequate hemostasis was obtained. The patient left the angio suite in good condition and tolerated the procedure well. CAMERON
[2016-06-14] MEDS: PIPERACILL/TAZOBAC IV 4.5 GM in DEXTROSE 5% 100ML 100 ML IV SCH ×2 (09:33→21:32)
--- NOTE | 2016-06-14 11:08 | Progress Note ---
Subjective Date of Service: June 14, 2016. Subjective Pt evaluation today including: chart review, lab review, review of studies Patient was not in room today during rounds, was at procedure Problem List Medical Problems: (1) Cellulitis of right foot Status: Acute (2) Sepsis Status: Acute Objective Vital Signs Date Time Temp Pulse Resp B/P Pulse Ox O2 Delivery O2 Flow Rate FiO2 06/14/16 10:25 60 20 151/69 93 Room Air 06/14/16 09:55 54 16 150/69 92 Room Air 06/14/16 09:25 67 16 163/67 92 Room Air 06/14/16 09:25 Room Air 06/14/16 09:25 92 Room Air 06/14/16 09:15 59 18 142/64 97 Room Air 06/14/16 09:05 58 14 135/58 92 Room Air 06/14/16 08:55 56 13 136/65 95 Room Air 06/14/16 08:45 53 14 144/58 93 Room Air 06/14/16 07:42 36.3 18 150/58 93 Room Air 06/14/16 07:25 36.3 55 18 150/58 93 Room Air 06/14/16 06:57 36.3 55 14 136/64 96 Room Air 06/13/16 23:16 36.7 62 16 147/62 93 Room Air 06/13/16 19:45 Room Air 06/13/16 19:32 36.7 72 18 159/67 93 Room Air 06/13/16 16:20 Room Air 06/13/16 15:25 36.7 55 18 144/66 95 Room Air Laboratory Results Last 24 Hours Test 06/13/16 11:29 06/13/16 14:24 06/13/16 16:39 06/13/16 20:58 Bedside Glucose 168 mg/dl 175 mg/dl 186 mg/dl Activated Partial Thromboplast Time 63.9 SECONDS Partial Thromboplastin Ratio 2.5 Test 06/14/16 05:35 06/14/16 06:26 06/14/16 06:54 White Blood Count 14.07 K/uL Red Blood Count 2.68 M/uL Hemoglobin 8.0 g/dL Hematocrit 24.3 % Mean Corpuscular Volume 90.7 fL Mean Corpuscular Hemoglobin 29.9 pg Mean Corpuscular Hemoglobin Concent 32.9 g/dl RDW Standard Deviation 49.1 fL RDW Coefficient of Variation 14.9 % Platelet Count 432 K/uL Mean Platelet Volume 8.0 fL Activated Partial Thromboplast Time 76.6 SECONDS Partial Thromboplastin Ratio 2.9 Sodium Level 132 mmol/L Potassium Level 4.0 mmol/L Chloride Level 91 mmol/L Carbon Dioxide Level 28 mmol/L Anion Gap 13.0 mmol/L Blood Urea Nitrogen 42 mg/dl Creatinine 8.20 mg/dl Est Creatinine Clear Calc Drug Dose 10.5 ml/min Estimated GFR () 6.7 Estimated GFR (Non- 5.8 BUN/Creatinine Ratio 5.1 Random Glucose 51 mg/dl Calcium Level 9.4 mg/dl Random Vancomycin Level 16.1 mcg/ml Bedside Glucose 55 mg/dl 71 mg/dl Assessment and Plan 1. right foot POD 11 - I and D, 5th metatarsal head resection, ulcer debridement - foot was not assessed today due to patient being out of the room and in a procedure, post xrays stable and show 5th metatarsal head resection ; continue to elevate right foot with pillow and recommend partial weightbearing at this time time, appreciate ID recs, pathology stating acute osteomyelitis right 5th metatarsal head, will continue dressings with adaptic or xerform over incision laterally and previous ulceration at plantar 5th metatarsal, will allow area to continue to heal by 2ndary intent, overall the foot is greatly improved, from a podiatry stand point patient is stable for d/c, no further surgical dbridements are planned, will recommend to continue local wound care to the area, patient will need f/u with me placed post d/c Discharge planning: uncertain
--- NOTE | 2016-06-14 11:45 | Dialysis Progress Note ---
Hemodialysis Note Date of Service June 14, 2016. Chief Complaint ESRD Subjective No acute events overnight. Bre was seen and evaluated during hemodialysis this morning. He denied any acute complaints. Fistulogram completed by Dr. Cabral this morning. No fevers or chills. Podiatry note reviewed this morning. Review of Systems A complete review of systems was performed. Pertinent positives are noted above. All other systems are negative. Vital Signs Last 8 Hrs Date Time Temp Pulse Resp B/P Pulse Ox O2 Delivery O2 Flow Rate FiO2 06/14/16 10:25 60 20 151/69 93 Room Air 06/14/16 09:55 54 16 150/69 92 Room Air 06/14/16 09:25 67 16 163/67 92 Room Air 06/14/16 09:25 Room Air 06/14/16 09:25 92 Room Air 06/14/16 09:15 59 18 142/64 97 Room Air 06/14/16 09:05 58 14 135/58 92 Room Air 06/14/16 08:55 56 13 136/65 95 Room Air 06/14/16 08:45 53 14 144/58 93 Room Air 06/14/16 07:42 36.3 18 150/58 93 Room Air 06/14/16 07:25 36.3 55 18 150/58 93 Room Air 06/14/16 06:57 36.3 55 14 136/64 96 Room Air I & O 24-Hour Column 06/14/16 08:00 Intake Total 2692 ml Output Total 150 ml Balance 2542 ml Last Recorded Weight Weight (Kilograms): 114.300 Physical Exam General Appearance: WD/WN, no apparent distress Head: normocephalic, atraumatic Eyes: normal inspection, sclerae normal ENT: normal ENT inspection, pharynx normal Neck: supple, no JVD Respiratory/Chest: lungs clear, no respiratory distress, no accessory muscle use Cardiovascular: regular rate, rhythm, no gallop Abdomen/GI: non tender, soft Extremities/Musculoskelatal: normal inspection, no pedal edema Neurologic/Psych: alert, oriented x 3 Family History Negative for CKD / ESRD Social History Smoking Status: Unknown if ever smoked Drug Use: none Marital Status: Housing Status: lives with family Occupation: retired . Retired. Former smoker (2ppd x 45 years, quit 2002) Laboratory Results Past 24 Hours 06/14/16 05:35 06/14/16 05:35 Test 06/13/16 14:24 06/13/16 16:39 06/13/16 20:58 06/14/16 05:35 Activated Partial Thromboplast Time 63.9 SECONDS (21.0-31.0) 76.6 SECONDS (21.0-31.0) Partial Thromboplastin Ratio 2.5 2.9 Bedside Glucose 175 mg/dl (70-99) 186 mg/dl (70-99) Red Blood Count 2.68 M/uL (4.7-6.1) Mean Corpuscular Volume 90.7 fL (80-100) Mean Corpuscular Hemoglobin 29.9 pg (25-34) Mean Corpuscular Hemoglobin Concent 32.9 g/dl (32-36) RDW Standard Deviation 49.1 fL (36.4-46.3) RDW Coefficient of Variation 14.9 % (11.5-14.5) Mean Platelet Volume 8.0 fL (7.4-10.4) Anion Gap 13.0 mmol/L (3-11) Est Creatinine Clear Calc Drug Dose 10.5 ml/min Estimated GFR () 6.7 Estimated GFR (Non- 5.8 BUN/Creatinine Ratio 5.1 (10-20) Calcium Level 9.4 mg/dl (8.5-10.1) Random Vancomycin Level 16.1 mcg/ml Test 06/14/16 06:26 06/14/16 06:54 Bedside Glucose 55 mg/dl (70-99) 71 mg/dl (70-99) Allergies Coded Allergies: No Known Allergies (Verified , 06/02/16) Medications Current Inpatient Medications Medications (Trade) Dose Ordered Sig/Eliseo Route Start Time Stop Time Status Last Admin Dose Admin Polyethylene (Miralax Powder Packet) 17 gm DAILY PO 06/03/16 08:00 07/03/16 08:59 06/13/16 08:20 17 GM Allopurinol (Zyloprim Tab) 100 mg HS PO 06/02/16 21:00 07/02/16 20:59 06/13/16 20:41 100 MG Aspirin (Ecotrin Tab) 81 mg QAM PO 06/03/16 08:00 07/03/16 08:59 Future hold 06/13/16 08:21 81 MG Atorvastatin Calcium (Lipitor Tab) 20 mg DAILY PO 06/03/16 08:00 07/03/16 08:59 06/13/16 08:21 20 MG Calcium Acetate (Phoslo Cap) 667 mg TIDM PO 06/02/16 17:00 07/02/16 16:59 06/13/16 19:16 667 MG Furosemide (Lasix Tab) 40 mg DAILY PO 06/03/16 08:00 07/03/16 08:59 06/13/16 08:20 40 MG Ipratropium [place] (Atrovent Hfa Inhaler) 2 puffs QID PRN INH 06/02/16 12:30 07/02/16 12:29 Albuterol/ Ipratropium (Duoneb) 3 ml Q4H PRN INH 06/02/16 12:30 07/02/16 12:29 06/09/16 22:49 3 ML Meclizine HCl (Antivert Tab) 25 mg Q4H PRN PO 06/02/16 12:30 07/02/16 12:29 Tamsulosin HCl (Flomax Cap) 0.4 mg HS PO 06/02/16 21:00 07/02/16 20:59 06/13/16 20:40 0.4 MG Cholecalciferol (Vitamin D Tab) 2,000 inter.unit QAM PO 06/03/16 08:00 07/03/16 08:59 06/13/16 08:22 2,000 INTER.UNIT Insulin Detemir (Levemir Flexpen/ FlexTouch) 80 unit HS SC 06/02/16 21:00 07/02/16 20:59 06/13/16 21:20 80 UNIT Ranitidine HCl (zANTac TAB) 300 mg QAM PO 06/03/16 08:00 07/03/16 08:59 06/13/16 08:22 300 MG Oxycodone/ Acetaminophen 1 tab 1 tab Q4H PRN PO 06/02/16 12:30 06/16/16 12:29 06/13/16 08:19 1 TAB Piperacillin Sod/ Tazobactam Sod/ Dextrose (Zosyn Iv/D5 100ml) 120 ml @ 30 mls/hr Q12H IV 06/02/16 20:00 07/14/16 19:59 06/14/16 09:33 30 MLS/HR Piperacillin Sod/ Tazobactam Sod (Consult) 1 ea UD PRN N/A 06/02/16 15:00 07/02/16 14:59 Vancomycin HCl (Consult) 1 ea UD PRN N/A 06/02/16 15:00 07/02/16 14:59 Glucose (Glucose 40% Gel) 15-30 GRAMS 15 GRAMS... UD PRN PO 06/02/16 17:00 07/02/16 16:59 06/14/16 07:02 15 GM Glucose (Glucose Chew Tab) 4-8 Tablets 4 Tabl... UD PRN PO 06/02/16 17:00 07/02/16 16:59 Dextrose (Dextrose 50% 50ML Syringe) 25-50ML OF 50% DW IV FOR... UD PRN IV 06/02/16 17:00 07/02/16 16:59 06/12/16 06:53 50 ML Glucagon (Glucagon Inj) 1 mg UD PRN SQ 06/02/16 17:00 07/02/16 16:59 Acetaminophen (Tylenol Tab) 650 mg Q4H PRN PO 06/03/16 14:30 07/03/16 14:29 06/07/16 10:52 650 MG Al Hydrox/Mg Hydrox/Simethicone (Maalox Max Susp) 15 ml Q4H PRN PO 06/03/16 14:30 07/03/16 14:29 06/09/16 23:46 15 ML Magnesium Hydroxide (Milk Of Magnesia Susp) 30 ml Q12H PRN PO 06/03/16 14:30 07/03/16 14:29 Ondansetron HCl (Zofran Inj) 4 mg Q6H PRN IV 06/03/16 14:30 07/03/16 14:29 06/05/16 15:11 4 MG Oxycodone/ Acetaminophen (Percocet 5-325mg Tab) 2 tab Q4H PRN PO 06/03/16 14:30 06/17/16 14:29 06/13/16 00:02 2 TAB Metoclopramide HCl (Reglan Inj) 5 mg Q6H PRN IV 06/03/16 14:30 07/03/16 14:29 06/05/16 17:22 5 MG Trazodone HCl (Desyrel Tab) 100 mg HS PO 06/05/16 21:00 07/05/16 20:59 06/13/16 20:39 100 MG Chlordiazepoxide (Librium Cap) 10 mg BID PO 06/06/16 09:00 07/06/16 08:59 06/13/16 20:42 10 MG Trazodone HCl (Desyrel Tab) 25 mg HS PO 06/05/16 21:00 07/05/16 20:59 06/13/16 20:40 25 MG Metoprolol Succinate 75 mg 75 mg QAM PO 06/08/16 09:00 07/08/16 08:59 06/13/16 08:20 75 MG Azithromycin 250 mg/Dextrose 252.5 ml @ 125 mls/hr DAILY@0900 IV 06/09/16 09:00 06/15/16 08:59 06/13/16 12:51 125 MLS/HR Heparin Sodium/ Dextrose (Heparin 25,000 Unit/500ml D5W) 500 ml @ 41 mls/hr [id number] PRN IV 06/08/16 15:05 07/08/16 15:04 Future hold 06/14/16 09:36 41 MLS/HR Hydralazine HCl (HydrALAZINE INJ) 10 mg Q6H PRN IV. 06/09/16 18:45 07/09/16 18:44 06/12/16 23:15 10 MG Nitroglycerin (Nitrostat Tab) 0.4 mg PRN PRN SL 06/10/16 00:15 07/10/16 00:14 06/10/16 00:22 0.4 MG Lisinopril (Zestril Tab) 40 mg QAM PO 06/10/16 12:00 07/10/16 11:59 06/13/16 08:23 40 MG Enteral Nutritional Formula (Boost Breeze Nutritional Drink) 1 box AC PO 06/10/16 16:15 07/10/16 16:14 06/10/16 17:18 1 BOX Amlodipine Besylate (Norvasc Tab) 10 mg QAM PO 06/12/16 09:00 07/12/16 08:59 06/13/16 08:21 10 MG Morphine Sulfate (MoRPHine SULFATE INJ) 2 mg Q3H PRN IV 06/13/16 15:45 06/27/16 15:44 06/13/16 19:46 2 MG Insulin Aspart SLIDING SCALE If C... Q6 SC 06/14/16 06:30 07/14/16 06:29 Vancomycin HCl/ Sodium Chloride (Vancomycin Inj/ Nss 250ml) 260 ml @ 125 mls/hr TODAY@1600 IV 06/14/16 16:00 06/14/16 23:59 Impression (1) End-stage renal disease on hemodialysis (2) Cellulitis of right foot (3) Sepsis (4) Monoclonal gammopathy (5) Diabetes mellitus, type II Bre is a 75-year-old male with end-stage renal disease on hemodialysis Tuesday, Tuesday, Tuesday at [facility] dialysis unit. Medical history notable for hypertension, diabetes mellitus, MGUS. He was admitted to the hospital on 06/02/16 with nausea and vomiting for few days as well as worsening right lower extremity chronic infected diabetic ulcer. 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 Wound culture grew MSSA and gram negative and blood culture was negative. 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 He was scheduled for fistulogram on 06/07/2016, however the procedure was canceled secondary to hypoxia and tachycardia. CTA chest was negative for PE but did reveal right sided pneumonia. He was subsequently diagnosed with new a flutter and started on anticoagulation. Recommendations -- HD per [facility] schedule; professional oversight of hemodialysis was provided today -- Qb appropriate. Fistulogram performed this morning -- Blood pressure appropriate -- Renal diet -- Transfuse 2 units PRBC with hemodialysis today
--- NOTE | 2016-06-14 14:46 | Pharmacy Progress Note ---
Pharmacy Antibiotic Prog Note Date of Service June 14, 2016. Subjective The patient is currently receiving vancomycin 500-750 mg IV dosed empirically when vanco level is less than 20 pre-dialysis, and Zosyn 4.5 Gm extended infusion q12h. The patient is currently on day # 13 of vancomycin and Zosyn IV therapy at [facility]. Objective Height (Feet): 6 Height (Inches): 1.00 Weight (Kilograms): 114.300 Levels: Item Value Date Time Random Vancomycin Level 16.1 mcg/ml 06/14/16 0535 Previous dose vancomycin 500mg hung 06/11 @ 1833 (after previous dialysis). Lab Results (24hrs): Laboratory Tests Test 06/14/16 05:35 BUN/Creatinine Ratio 5.1 Blood Urea Nitrogen 42 mg/dl Creatinine 8.20 mg/dl White Blood Count 14.07 K/uL Micro Results: 06/02 blood x2 NG final 06/03 tissue R foot Alpha strep nonentero, MSSA, Bacteroides thetaiotaomicron 06/03 tissue R toe Ent. faecium, MSSA, Bacteroides thetaiotaomicron 06/04 urine NG 06/07 nasal swab neg. MRSA 06/11 stool Neg C.diff. Recent Pertinent Medications Item Value Date Time Vancomycin HCl 260 ml @ 125 mls/hr 06/14/16 1600 500 mg/Sodium TODAY@1600/IV Chloride Azithromycin 250 252.5 ml @ 125 mls/hr 06/09/16 0900 mg/Dextrose DAILY@0900/IV 06/13/16 1251 Piperacillin Sod/ 120 ml @ 30 mls/hr 06/02/16 2000 Tazobactam Sod Q12H/IV 06/14/16 0933 4.5 gm/Dextrose Vancomycin HCl 260 ml @ 125 mls/hr 06/11/16 1600 500 mg/Sodium Fr@1600/IV 06/11/16 1833 Chloride Assessment & Plan He is on day 13 of vancomycin and Zosyn at [facility] (vanco was started prior to this admission) for osteomyelitis R toe, cellulitis R foot and leg, S/P I&D, amputation of toe. Zithromax added for additional coverage for HCAP. One-two weeks more of antibiotics are planned for osteo. Vancomycin level today is Therapeutic- will give additional dose after hemodialysis. Consider changing to vancomycin 500 mg IV after each hemodialysis. Goal trough level estimate: between 15-20 mcg/mL. Will reorder vancomycin level with am labs in a few days if renal function remains stable. Consider checking a level once a week before a dialysis treatment to monitor for accumulation. Continue Zosyn 4.5 Gm IV (infused over 4 hr) every 12 hr for unchanged renal function. Pharmacy will continue to follow and will adjust dose/frequency as necessary. Thank you
[2016-06-14] MEDS: LISINOPRIL 40 MG TAB PO SCH (14:49)
[2016-06-14] MEDS: ATORVASTATIN 20 MG TAB PO SCH (14:49)
[2016-06-14] MEDS: AZITHROMYCIN IV 250 MG in DEXTROSE 5% 250ML 250 ML IV SCH (14:49)
[2016-06-14] MEDS: POLYETHYLENE (MIRALAX) 17 GM PACK PO SCH (14:49)
[2016-06-14] MEDS: RANITIDINE HCL 150 MG TAB PO SCH (14:50)
[2016-06-14] MEDS: AMLODIPINE BESYLATE 5 MG TAB PO SCH (14:50)
[2016-06-14] MEDS: ASPIRIN 81 MG ECTAB PO SCH (14:50)
[2016-06-14] MEDS: CHOLECALCIFEROL 1000 INTER.UNIT TAB PO SCH (14:50)
[2016-06-14] MEDS: METOPROLOL SUCC 25MG EXT REL TAB PO SCH (14:50)
[2016-06-14] MEDS: FUROSEMIDE 40 MG TAB PO SCH (14:51)
--- NOTE | 2016-06-14 15:26 | Progress Note ---
Subjective Date of Service: June 14, 2016. Subjective Pt evaluation today including: conversation w/ patient, conversation w/ family (daughter), physical exam, lab review, review of inpatient medication list Pain: right foot, moderate PO Intake: poor, limited appetite, dialysis today Voiding: no voiding problems patient c/o fatigue, sleeping a lot today, had fistulogram and hemodialysis today denies chest pain, dyspnea, abdominal pain, diarrhea, constipation admits to right foot pain Problem List Medical Problems: (1) Cellulitis of right foot Status: Acute (2) Sepsis Status: Acute Review of Systems Constitutional: + fatigue, + weakness Musculoskeletal: + joint pain (right foot) All Other Systems: Reviewed and Negative Medications Current Inpatient Medications Medications (Trade) Dose Ordered Sig/Eliseo Route Start Time Stop Time Status Last Admin Dose Admin Polyethylene (Miralax Powder Packet) 17 gm DAILY PO 06/03/16 08:00 07/03/16 08:59 06/14/16 14:49 17 GM Allopurinol (Zyloprim Tab) 100 mg HS PO 06/02/16 21:00 07/02/16 20:59 06/13/16 20:41 100 MG Aspirin (Ecotrin Tab) 81 mg QAM PO 06/03/16 08:00 07/03/16 08:59 Future hold 06/14/16 14:50 81 MG Atorvastatin Calcium (Lipitor Tab) 20 mg DAILY PO 06/03/16 08:00 07/03/16 08:59 06/14/16 14:49 20 MG Calcium Acetate (Phoslo Cap) 667 mg TIDM PO 06/02/16 17:00 07/02/16 16:59 06/13/16 19:16 667 MG Furosemide (Lasix Tab) 40 mg DAILY PO 06/03/16 08:00 07/03/16 08:59 06/14/16 14:51 40 MG Ipratropium [place] (Atrovent Hfa Inhaler) 2 puffs QID PRN INH 06/02/16 12:30 07/02/16 12:29 Albuterol/ Ipratropium (Duoneb) 3 ml Q4H PRN INH 06/02/16 12:30 07/02/16 12:29 06/09/16 22:49 3 ML Meclizine HCl (Antivert Tab) 25 mg Q4H PRN PO 06/02/16 12:30 07/02/16 12:29 Tamsulosin HCl (Flomax Cap) 0.4 mg HS PO 06/02/16 21:00 07/02/16 20:59 06/13/16 20:40 0.4 MG Cholecalciferol (Vitamin D Tab) 2,000 inter.unit QAM PO 06/03/16 08:00 07/03/16 08:59 06/14/16 14:50 2,000 INTER.UNIT Insulin Detemir (Levemir Flexpen/ FlexTouch) 80 unit HS SC 06/02/16 21:00 07/02/16 20:59 06/13/16 21:20 80 UNIT Ranitidine HCl (zANTac TAB) 300 mg QAM PO 06/03/16 08:00 07/03/16 08:59 06/14/16 14:50 300 MG Oxycodone/ Acetaminophen 1 tab 1 tab Q4H PRN PO 06/02/16 12:30 06/16/16 12:29 06/13/16 08:19 1 TAB Piperacillin Sod/ Tazobactam Sod/ Dextrose (Zosyn Iv/D5 100ml) 120 ml @ 30 mls/hr Q12H IV 06/02/16 20:00 07/14/16 19:59 06/14/16 09:33 30 MLS/HR Piperacillin Sod/ Tazobactam Sod (Consult) 1 ea UD PRN N/A 06/02/16 15:00 07/02/16 14:59 Vancomycin HCl (Consult) 1 ea UD PRN N/A 06/02/16 15:00 07/02/16 14:59 Glucose (Glucose 40% Gel) 15-30 GRAMS 15 GRAMS... UD PRN PO 06/02/16 17:00 07/02/16 16:59 06/14/16 07:02 15 GM Glucose (Glucose Chew Tab) 4-8 Tablets 4 Tabl... UD PRN PO 06/02/16 17:00 07/02/16 16:59 Dextrose (Dextrose 50% 50ML Syringe) 25-50ML OF 50% DW IV FOR... UD PRN IV 06/02/16 17:00 07/02/16 16:59 06/12/16 06:53 50 ML Glucagon (Glucagon Inj) 1 mg UD PRN SQ 06/02/16 17:00 07/02/16 16:59 Acetaminophen (Tylenol Tab) 650 mg Q4H PRN PO 06/03/16 14:30 07/03/16 14:29 06/07/16 10:52 650 MG Al Hydrox/Mg Hydrox/Simethicone (Maalox Max Susp) 15 ml Q4H PRN PO 06/03/16 14:30 07/03/16 14:29 06/09/16 23:46 15 ML Magnesium Hydroxide (Milk Of Magnesia Susp) 30 ml Q12H PRN PO 06/03/16 14:30 07/03/16 14:29 Ondansetron HCl (Zofran Inj) 4 mg Q6H PRN IV 06/03/16 14:30 07/03/16 14:29 06/05/16 15:11 4 MG Oxycodone/ Acetaminophen (Percocet 5-325mg Tab) 2 tab Q4H PRN PO 06/03/16 14:30 06/17/16 14:29 06/13/16 00:02 2 TAB Metoclopramide HCl (Reglan Inj) 5 mg Q6H PRN IV 06/03/16 14:30 07/03/16 14:29 06/05/16 17:22 5 MG Trazodone HCl (Desyrel Tab) 100 mg HS PO 06/05/16 21:00 07/05/16 20:59 06/13/16 20:39 100 MG Chlordiazepoxide (Librium Cap) 10 mg BID PO 06/06/16 09:00 07/06/16 08:59 06/13/16 20:42 10 MG Trazodone HCl (Desyrel Tab) 25 mg HS PO 06/05/16 21:00 07/05/16 20:59 06/13/16 20:40 25 MG Metoprolol Succinate 75 mg 75 mg QAM PO 06/08/16 09:00 07/08/16 08:59 06/14/16 14:50 75 MG Azithromycin 250 mg/Dextrose 252.5 ml @ 125 mls/hr DAILY@0900 IV 06/09/16 09:00 06/15/16 08:59 06/14/16 14:49 125 MLS/HR Heparin Sodium/ Dextrose (Heparin 25,000 Unit/500ml D5W) 500 ml @ 41 mls/hr [id number] PRN IV 06/08/16 15:05 07/08/16 15:04 Future hold 06/14/16 15:15 41 MLS/HR Hydralazine HCl (HydrALAZINE INJ) 10 mg Q6H PRN IV. 06/09/16 18:45 07/09/16 18:44 06/12/16 23:15 10 MG Nitroglycerin (Nitrostat Tab) 0.4 mg PRN PRN SL 06/10/16 00:15 07/10/16 00:14 06/10/16 00:22 0.4 MG Lisinopril (Zestril Tab) 40 mg QAM PO 06/10/16 12:00 07/10/16 11:59 06/14/16 14:49 40 MG Enteral Nutritional Formula (Boost Breeze Nutritional Drink) 1 box AC PO 06/10/16 16:15 07/10/16 16:14 06/10/16 17:18 1 BOX Amlodipine Besylate (Norvasc Tab) 10 mg QAM PO 06/12/16 09:00 07/12/16 08:59 06/14/16 14:50 10 MG Morphine Sulfate (MoRPHine SULFATE INJ) 2 mg Q3H PRN IV 06/13/16 15:45 06/27/16 15:44 06/13/16 19:46 2 MG Insulin Aspart SLIDING SCALE If C... Q6 SC 06/14/16 06:30 07/14/16 06:29 Vancomycin HCl/ Sodium Chloride (Vancomycin Inj/ Nss 250ml) 260 ml @ 125 mls/hr TODAY@1600 IV 06/14/16 16:00 06/14/16 23:59 Objective Vital Signs Date Time Temp Pulse Resp B/P Pulse Ox O2 Delivery O2 Flow Rate FiO2 06/14/16 14:53 36.5 60 18 174/74 98 Room Air 06/14/16 14:38 36.3 62 138/68 06/14/16 14:15 56 145/58 06/14/16 14:00 56 138/53 06/14/16 13:45 60 161/60 06/14/16 13:30 56 138/53 06/14/16 13:15 56 132/68 06/14/16 13:00 54 156/65 06/14/16 12:45 54 150/61 06/14/16 12:39 36.5 60 157/67 06/14/16 12:30 60 142/67 06/14/16 12:15 57 142/66 06/14/16 12:00 55 148/62 06/14/16 11:45 52 136/58 06/14/16 11:30 55 136/60 06/14/16 11:15 55 136/61 06/14/16 11:00 65 145/67 06/14/16 10:25 60 20 151/69 93 Room Air 06/14/16 09:55 54 16 150/69 92 Room Air 06/14/16 09:25 67 16 163/67 92 Room Air 06/14/16 09:25 Room Air 06/14/16 09:25 92 Room Air 06/14/16 09:15 59 18 142/64 97 Room Air 06/14/16 09:05 58 14 135/58 92 Room Air 06/14/16 08:55 56 13 136/65 95 Room Air 06/14/16 08:45 53 14 144/58 93 Room Air 06/14/16 07:42 36.3 18 150/58 93 Room Air 06/14/16 07:25 36.3 55 18 150/58 93 Room Air 06/14/16 06:57 36.3 55 14 136/64 96 Room Air 06/13/16 23:16 36.7 62 16 147/62 93 Room Air 06/13/16 19:45 Room Air 06/13/16 19:32 36.7 72 18 159/67 93 Room Air 06/13/16 16:20 Room Air 06/13/16 15:25 36.7 55 18 144/66 95 Room Air Physical Exam General Appearance: WD/WN, no apparent distress Eyes: normal inspection, EOMI, sclerae normal Neck: supple, no adenopathy, no JVD, trachea midline Respiratory/Chest: chest non-tender, lungs clear, normal breath sounds, no respiratory distress, no accessory muscle use Cardiovascular: regular rate, rhythm, no edema, no gallop, no JVD, no murmur Abdomen: normal bowel sounds, non tender, soft, no organomegaly Extremities: normal range of motion, no pedal edema, no calf tenderness Neurologic/Psychiatric: can inspector II-XII nml as tested, no motor/sensory deficits, alert, normal mood/affect, oriented x 3 Skin: normal color, warm/dry, no rash Lymphatic: no adenopathy Laboratory Results Last 24 Hours Test 06/13/16 16:39 06/13/16 20:58 06/14/16 05:35 06/14/16 06:17 Bedside Glucose 175 mg/dl 186 mg/dl 57 mg/dl White Blood Count 14.07 K/uL Red Blood Count 2.68 M/uL Hemoglobin 8.0 g/dL Hematocrit 24.3 % Mean Corpuscular Volume 90.7 fL Mean Corpuscular Hemoglobin 29.9 pg Mean Corpuscular Hemoglobin Concent 32.9 g/dl RDW Standard Deviation 49.1 fL RDW Coefficient of Variation 14.9 % Platelet Count 432 K/uL Mean Platelet Volume 8.0 fL Activated Partial Thromboplast Time 76.6 SECONDS Partial Thromboplastin Ratio 2.9 Sodium Level 132 mmol/L Potassium Level 4.0 mmol/L Chloride Level 91 mmol/L Carbon Dioxide Level 28 mmol/L Anion Gap 13.0 mmol/L Blood Urea Nitrogen 42 mg/dl Creatinine 8.20 mg/dl Est Creatinine Clear Calc Drug Dose 10.5 ml/min Estimated GFR () 6.7 Estimated GFR (Non- 5.8 BUN/Creatinine Ratio 5.1 Random Glucose 51 mg/dl Calcium Level 9.4 mg/dl Random Vancomycin Level 16.1 mcg/ml Test 06/14/16 06:26 06/14/16 06:54 06/14/16 12:05 06/14/16 12:30 Bedside Glucose 55 mg/dl 71 mg/dl 55 mg/dl 75 mg/dl Test 06/14/16 15:10 Assessment and Plan RIGHT DIABETIC FOOT INFECTION Growing MSSA, enterococcus, Bacteroides ID consulted Surgical debridement 06/03 Wound care following Continue IV antibiotics for now per infectious disease - currently Zosyn and azithromycin Per ID note, most likely will transition to IV daptomycin and Flagyl Continue to follow wound care post discharge Percocet for pain ATRIAL FIBRILLATION Currently in normal sinus rhythm which is rate controlled Continues on heparin drip - titrate per protocol Continue metoprolol succinate HYPOXIA History of tobacco abuse 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 Chest x-ray and CT chest show probable right lower lobe pneumonia Continue Zosyn and azithromycin Oxygenating well on room air DIABETES MELLITUS Continue levemir and sliding scale insulin with NovoLog Patient reports that he is slowly increasing his dietary intake END-STAGE RENAL DISEASE Scheduled hemodialysis Tuesday Nephrology consulted Appreciate Dr. Hardin's input fistulogram today ANEMIA Hemoglobin currently 8.0, 7.9 yesterday Stable from 06/10/16 Anemia of chronic disease No hx of blood transfusion Epogen 06/04 and 06/11 Continue to follow serial labs HYPERTENSION Continue medications as titrated by nephrology Pressure is better controlled today Continue to follow clinically Vital signs per protocol DEPRESSION/ANXIETY Continue Librium and Seroquel Good pain control needed GI PROPHYLAXIS Continue Zantac DVT PROPHYLAXIS Continue on heparin Limited ambulation secondary to right foot surgery Increase ambulation as tolerated tentatively plan on home with home IV antibiotics and home wound care, will need to discuss with ID about what antibiotics Discharge planning: uncertain
[2016-06-14 15:43] LABS: PARTIAL THROMBOPLASTIN RATIO 3.2
[2016-06-14] MEDS ORDERED: VANCOMYCIN INJ 500 MG in SODIUM CHLORIDE 0.9% 250ML 250 ML IV SCH (16:00)
--- NOTE | 2016-06-14 16:18 | Infectious Disease Progress Nt ---
Progress Note Date of Service June 14, 2016. Subjective Pt evaluation today including: conversation w/ patient, conversation w/ family (daughter), physical exam, chart review, lab review, review of studies, review of inpatient medication list Patient is feeling OK today but is experiencing some abdominal pain. WBC count today was 14.07. Glucose has been low today into the 50s. Patient's most recent wound image was reviewed. Noted he had left forearm fistulogram. All Other Systems: Reviewed and Negative Medications Current Inpatient Medications Medications (Trade) Dose Ordered Sig/Eliseo Route Start Time Stop Time Status Last Admin Dose Admin Polyethylene (Miralax Powder Packet) 17 gm DAILY PO 06/03/16 08:00 07/03/16 08:59 06/14/16 14:49 17 GM Allopurinol (Zyloprim Tab) 100 mg HS PO 06/02/16 21:00 07/02/16 20:59 06/13/16 20:41 100 MG Aspirin (Ecotrin Tab) 81 mg QAM PO 06/03/16 08:00 07/03/16 08:59 Future hold 06/14/16 14:50 81 MG Atorvastatin Calcium (Lipitor Tab) 20 mg DAILY PO 06/03/16 08:00 07/03/16 08:59 06/14/16 14:49 20 MG Calcium Acetate (Phoslo Cap) 667 mg TIDM PO 06/02/16 17:00 07/02/16 16:59 06/13/16 19:16 667 MG Furosemide (Lasix Tab) 40 mg DAILY PO 06/03/16 08:00 07/03/16 08:59 06/14/16 14:51 40 MG Ipratropium [place] (Atrovent Hfa Inhaler) 2 puffs QID PRN INH 06/02/16 12:30 07/02/16 12:29 Albuterol/ Ipratropium (Duoneb) 3 ml Q4H PRN INH 06/02/16 12:30 07/02/16 12:29 06/09/16 22:49 3 ML Meclizine HCl (Antivert Tab) 25 mg Q4H PRN PO 06/02/16 12:30 07/02/16 12:29 Tamsulosin HCl (Flomax Cap) 0.4 mg HS PO 06/02/16 21:00 07/02/16 20:59 06/13/16 20:40 0.4 MG Cholecalciferol (Vitamin D Tab) 2,000 inter.unit QAM PO 06/03/16 08:00 07/03/16 08:59 06/14/16 14:50 2,000 INTER.UNIT Insulin Detemir (Levemir Flexpen/ FlexTouch) 80 unit HS SC 06/02/16 21:00 07/02/16 20:59 06/13/16 21:20 80 UNIT Ranitidine HCl (zANTac TAB) 300 mg QAM PO 06/03/16 08:00 07/03/16 08:59 06/14/16 14:50 300 MG Oxycodone/ Acetaminophen 1 tab 1 tab Q4H PRN PO 06/02/16 12:30 06/16/16 12:29 06/13/16 08:19 1 TAB Piperacillin Sod/ Tazobactam Sod/ Dextrose (Zosyn Iv/D5 100ml) 120 ml @ 30 mls/hr Q12H IV 06/02/16 20:00 07/14/16 19:59 06/14/16 09:33 30 MLS/HR Piperacillin Sod/ Tazobactam Sod (Consult) 1 ea UD PRN N/A 06/02/16 15:00 07/02/16 14:59 Vancomycin HCl (Consult) 1 ea UD PRN N/A 06/02/16 15:00 07/02/16 14:59 Glucose (Glucose 40% Gel) 15-30 GRAMS 15 GRAMS... UD PRN PO 06/02/16 17:00 07/02/16 16:59 06/14/16 07:02 15 GM Glucose (Glucose Chew Tab) 4-8 Tablets 4 Tabl... UD PRN PO 06/02/16 17:00 07/02/16 16:59 Dextrose (Dextrose 50% 50ML Syringe) 25-50ML OF 50% DW IV FOR... UD PRN IV 06/02/16 17:00 07/02/16 16:59 06/12/16 06:53 50 ML Glucagon (Glucagon Inj) 1 mg UD PRN SQ 06/02/16 17:00 07/02/16 16:59 Acetaminophen (Tylenol Tab) 650 mg Q4H PRN PO 06/03/16 14:30 07/03/16 14:29 06/07/16 10:52 650 MG Al Hydrox/Mg Hydrox/Simethicone (Maalox Max Susp) 15 ml Q4H PRN PO 06/03/16 14:30 07/03/16 14:29 06/09/16 23:46 15 ML Magnesium Hydroxide (Milk Of Magnesia Susp) 30 ml Q12H PRN PO 06/03/16 14:30 07/03/16 14:29 Ondansetron HCl (Zofran Inj) 4 mg Q6H PRN IV 06/03/16 14:30 07/03/16 14:29 06/05/16 15:11 4 MG Oxycodone/ Acetaminophen (Percocet 5-325mg Tab) 2 tab Q4H PRN PO 06/03/16 14:30 06/17/16 14:29 06/13/16 00:02 2 TAB Metoclopramide HCl (Reglan Inj) 5 mg Q6H PRN IV 06/03/16 14:30 07/03/16 14:29 06/05/16 17:22 5 MG Trazodone HCl (Desyrel Tab) 100 mg HS PO 06/05/16 21:00 07/05/16 20:59 06/13/16 20:39 100 MG Chlordiazepoxide (Librium Cap) 10 mg BID PO 06/06/16 09:00 07/06/16 08:59 06/13/16 20:42 10 MG Trazodone HCl (Desyrel Tab) 25 mg HS PO 06/05/16 21:00 07/05/16 20:59 06/13/16 20:40 25 MG Metoprolol Succinate 75 mg 75 mg QAM PO 06/08/16 09:00 07/08/16 08:59 06/14/16 14:50 75 MG Azithromycin 250 mg/Dextrose 252.5 ml @ 125 mls/hr DAILY@0900 IV 06/09/16 09:00 06/15/16 08:59 06/14/16 14:49 125 MLS/HR Heparin Sodium/ Dextrose (Heparin 25,000 Unit/500ml D5W) 500 ml @ 41 mls/hr [id number] PRN IV 06/08/16 15:05 07/08/16 15:04 Future hold 06/14/16 16:06 41 MLS/HR Hydralazine HCl (HydrALAZINE INJ) 10 mg Q6H PRN IV. 06/09/16 18:45 07/09/16 18:44 06/12/16 23:15 10 MG Nitroglycerin (Nitrostat Tab) 0.4 mg PRN PRN SL 06/10/16 00:15 07/10/16 00:14 06/10/16 00:22 0.4 MG Lisinopril (Zestril Tab) 40 mg QAM PO 06/10/16 12:00 07/10/16 11:59 06/14/16 14:49 40 MG Enteral Nutritional Formula (Boost Breeze Nutritional Drink) 1 box AC PO 06/10/16 16:15 07/10/16 16:14 06/10/16 17:18 1 BOX Amlodipine Besylate (Norvasc Tab) 10 mg QAM PO 06/12/16 09:00 07/12/16 08:59 06/14/16 14:50 10 MG Morphine Sulfate (MoRPHine SULFATE INJ) 2 mg Q3H PRN IV 06/13/16 15:45 06/27/16 15:44 06/13/16 19:46 2 MG Insulin Aspart SLIDING SCALE If C... Q6 SC 06/14/16 06:30 07/14/16 06:29 Vancomycin HCl/ Sodium Chloride (Vancomycin Inj/ Nss 250ml) 260 ml @ 125 mls/hr TODAY@1600 IV 06/14/16 16:00 06/14/16 23:59 Objective Vital Signs Date Time Temp Pulse Resp B/P Pulse Ox O2 Delivery O2 Flow Rate FiO2 06/14/16 14:53 36.5 60 18 174/74 98 Room Air 06/14/16 14:38 36.3 62 138/68 06/14/16 14:15 56 145/58 06/14/16 14:00 56 138/53 06/14/16 13:45 60 161/60 06/14/16 13:30 56 138/53 06/14/16 13:15 56 132/68 06/14/16 13:00 54 156/65 06/14/16 12:45 54 150/61 06/14/16 12:39 36.5 60 157/67 06/14/16 12:30 60 142/67 06/14/16 12:15 57 142/66 06/14/16 12:00 55 148/62 06/14/16 11:45 52 136/58 06/14/16 11:30 55 136/60 06/14/16 11:15 55 136/61 06/14/16 11:00 65 145/67 06/14/16 10:25 60 20 151/69 93 Room Air 06/14/16 09:55 54 16 150/69 92 Room Air 06/14/16 09:25 67 16 163/67 92 Room Air 06/14/16 09:25 Room Air 06/14/16 09:25 92 Room Air 06/14/16 09:15 59 18 142/64 97 Room Air 06/14/16 09:05 58 14 135/58 92 Room Air 06/14/16 08:55 56 13 136/65 95 Room Air 06/14/16 08:45 53 14 144/58 93 Room Air 06/14/16 07:42 36.3 18 150/58 93 Room Air 06/14/16 07:25 36.3 55 18 150/58 93 Room Air 06/14/16 06:57 36.3 55 14 136/64 96 Room Air 06/13/16 23:16 36.7 62 16 147/62 93 Room Air 06/13/16 19:45 Room Air 06/13/16 19:32 36.7 72 18 159/67 93 Room Air 06/13/16 16:20 Room Air Physical Exam General Appearance: no apparent distress, + obese Eyes: normal inspection, sclerae normal ENT: hearing grossly normal Neck: supple, trachea midline Respiratory/Chest: chest non-tender, lungs clear, no respiratory distress, no accessory muscle use Cardiovascular: regular rate, rhythm Abdomen: + distended, + tenderness (generalized throughout) Neurologic/Psychiatric: alert, normal mood/affect Skin: normal color, warm/dry, no rash Laboratory Results Last 24 Hours Test 06/13/16 16:39 06/13/16 20:58 06/14/16 05:35 06/14/16 06:17 Bedside Glucose 175 mg/dl 186 mg/dl 57 mg/dl White Blood Count 14.07 K/uL Red Blood Count 2.68 M/uL Hemoglobin 8.0 g/dL Hematocrit 24.3 % Mean Corpuscular Volume 90.7 fL Mean Corpuscular Hemoglobin 29.9 pg Mean Corpuscular Hemoglobin Concent 32.9 g/dl RDW Standard Deviation 49.1 fL RDW Coefficient of Variation 14.9 % Platelet Count 432 K/uL Mean Platelet Volume 8.0 fL Activated Partial Thromboplast Time 76.6 SECONDS Partial Thromboplastin Ratio 2.9 Sodium Level 132 mmol/L Potassium Level 4.0 mmol/L Chloride Level 91 mmol/L Carbon Dioxide Level 28 mmol/L Anion Gap 13.0 mmol/L Blood Urea Nitrogen 42 mg/dl Creatinine 8.20 mg/dl Est Creatinine Clear Calc Drug Dose 10.5 ml/min Estimated GFR () 6.7 Estimated GFR (Non- 5.8 BUN/Creatinine Ratio 5.1 Random Glucose 51 mg/dl Calcium Level 9.4 mg/dl Random Vancomycin Level 16.1 mcg/ml Test 06/14/16 06:26 06/14/16 06:54 06/14/16 12:05 06/14/16 12:30 Bedside Glucose 55 mg/dl 71 mg/dl 55 mg/dl 75 mg/dl Test 06/14/16 15:10 Activated Partial Thromboplast Time 81.9 SECONDS Partial Thromboplastin Ratio 3.2 Assessment and Plan Patient with right 5th distal metatarsal abscess and osteomyelitis with chronic overlying ulceration and now probable right sided pneumonia and new onset diarrhea. Wound culture growing MSSA, Enterococcus, and Bacteroides. He is currently only on Zosyn, Vancomycin and Azithromycin. Feel that this patient likely could transition to IV daptomycin at 6 mg/kg dosing for ease of use as an outpatient upon discharge to cover both staph and Enterococcus and p.o. Flagyl to cover Bacteroides. He continues to tolerate abx well, and his wound appears to be healing appropriately. He likely will need some continued therapy pending better healing of his wound. We will continue to follow. PROVIDER ADDENDUM: Pt. reviewed with Ms. Linder. Agree with above assessment.
[2016-06-14] MEDS ORDERED: NURSING VERBAL MED ORDER ONE (17:45)
[2016-06-14] MEDS: INSULIN DETEMIR FLEXPEN/FLEX TOUCH 100 UNITS/ML 3ML SC SCH (21:00)
[2016-06-14] MEDS: TAMSULOSIN HCL 0.4 MG CAP PO SCH (21:35)
[2016-06-14] MEDS: TRAZODONE HCL 100 MG TAB PO SCH (21:35)
[2016-06-14] MEDS: ALLOPURINOL 100 MG TAB PO SCH (21:36)
[2016-06-14] MEDS: TRAZODONE HCL 50 MG TAB PO SCH (21:36)
[2016-06-14 23:14] LABS: PARTIAL THROMBOPLASTIN RATIO 9.5
[2016-06-15] VITALS (10 sets, daily range): BP systolic 131–187; BP diastolic 61–83; PULSE 64–73; TEMP 36.2–36.8; O2SAT 93–95; BMI 33.2
[2016-06-15 01:10] LABS: PARTIAL THROMBOPLASTIN RATIO 1.4
[2016-06-15] MEDS: HEPARIN 25,000 UNIT/500ML D5W 500 ML IV PRN ×5 (02:12→23:08)
[2016-06-15] MEDS: HydrALAZINE HCL 20 MG/ML VIAL IV. PRN (04:06)
[2016-06-15] MEDS ORDERED: NURSING VERBAL MED ORDER ONE ×2 (05:30)
[2016-06-15] MEDS: METOPROLOL SUCC 25MG EXT REL TAB PO SCH (05:40)
[2016-06-15 06:39] LABS: PARTIAL THROMBOPLASTIN RATIO 2.1
[2016-06-15] MEDS: PIPERACILL/TAZOBAC IV 4.5 GM in DEXTROSE 5% 100ML 100 ML IV SCH (07:30)
[2016-06-15] MEDS: INSULIN ASPART 100 UNITS/ML 3 ML PEN SC SCH ×4 (08:00→22:19)
[2016-06-15] MEDS: BOOST BREEZE NUTRITION DRINK 1 BOX PO SCH ×2 (08:00→12:00)
[2016-06-15] MEDS: CALCIUM ACETATE 667MG GELCAP PO SCH ×3 (08:30→18:11)
[2016-06-15] MEDS: POLYETHYLENE (MIRALAX) 17 GM PACK PO SCH (08:32)
[2016-06-15] MEDS: CHOLECALCIFEROL 1000 INTER.UNIT TAB PO SCH (08:35)
[2016-06-15] MEDS: FUROSEMIDE 40 MG TAB PO SCH (08:35)
[2016-06-15] MEDS: CHLORDIAZEPOXIDE 10 MG CAP PO SCH ×2 (08:35→22:16)
[2016-06-15] MEDS: AMLODIPINE BESYLATE 5 MG TAB PO SCH (08:35)
[2016-06-15] MEDS: LISINOPRIL 40 MG TAB PO SCH (08:36)
[2016-06-15] MEDS: ASPIRIN 81 MG ECTAB PO SCH (08:36)
[2016-06-15] MEDS: ATORVASTATIN 20 MG TAB PO SCH (08:36)
[2016-06-15] MEDS: RANITIDINE HCL 150 MG TAB PO SCH (08:36)
--- NOTE | 2016-06-15 10:16 | Infectious Disease Progress Nt ---
Progress Note Date of Service June 15, 2016. Subjective Pt evaluation today including: conversation w/ patient, physical exam, chart review, lab review, review of studies, review of inpatient medication list Patient continues to complain of pain in his right foot and stomach. Medication does make the pain better. This is a persistent, dull, non-radiating pain. He continues to complain of loose stools and decreased appetite as well. He is currently on IV Zosyn and Vancomycin, completed course of Azithromycin. All Other Systems: Reviewed and Negative Medications Current Inpatient Medications Medications (Trade) Dose Ordered Sig/Eliseo Route Start Time Stop Time Status Last Admin Dose Admin Polyethylene (Miralax Powder Packet) 17 gm DAILY PO 06/03/16 08:00 07/03/16 08:59 06/14/16 14:49 17 GM Allopurinol (Zyloprim Tab) 100 mg HS PO 06/02/16 21:00 07/02/16 20:59 06/14/16 21:36 100 MG Aspirin (Ecotrin Tab) 81 mg QAM PO 06/03/16 08:00 07/03/16 08:59 Future hold 06/15/16 08:36 81 MG Atorvastatin Calcium (Lipitor Tab) 20 mg DAILY PO 06/03/16 08:00 07/03/16 08:59 06/15/16 08:36 20 MG Calcium Acetate (Phoslo Cap) 667 mg TIDM PO 06/02/16 17:00 07/02/16 16:59 06/13/16 19:16 667 MG Furosemide (Lasix Tab) 40 mg DAILY PO 06/03/16 08:00 07/03/16 08:59 06/15/16 08:35 40 MG Ipratropium [place] (Atrovent Hfa Inhaler) 2 puffs QID PRN INH 06/02/16 12:30 07/02/16 12:29 Albuterol/ Ipratropium (Duoneb) 3 ml Q4H PRN INH 06/02/16 12:30 07/02/16 12:29 06/09/16 22:49 3 ML Meclizine HCl (Antivert Tab) 25 mg Q4H PRN PO 06/02/16 12:30 07/02/16 12:29 Tamsulosin HCl (Flomax Cap) 0.4 mg HS PO 06/02/16 21:00 07/02/16 20:59 06/14/16 21:35 0.4 MG Cholecalciferol (Vitamin D Tab) 2,000 inter.unit QAM PO 06/03/16 08:00 07/03/16 08:59 06/15/16 08:35 2,000 INTER.UNIT Insulin Detemir (Levemir Flexpen/ FlexTouch) 80 unit HS SC 06/02/16 21:00 07/02/16 20:59 06/13/16 21:20 80 UNIT Ranitidine HCl (zANTac TAB) 300 mg QAM PO 06/03/16 08:00 07/03/16 08:59 06/15/16 08:36 300 MG Oxycodone/ Acetaminophen (Percocet 5-325mg Tab) 1 tab Q4H PRN PO 06/02/16 12:30 06/16/16 12:29 06/13/16 08:19 1 TAB Vancomycin HCl (Consult) 1 ea UD PRN N/A 06/02/16 15:00 07/02/16 14:59 Glucose (Glucose 40% Gel) 15-30 GRAMS 15 GRAMS... UD PRN PO 06/02/16 17:00 07/02/16 16:59 06/14/16 07:02 15 GM Glucose (Glucose Chew Tab) 4-8 Tablets 4 Tabl... UD PRN PO 06/02/16 17:00 07/02/16 16:59 Dextrose (Dextrose 50% 50ML Syringe) 25-50ML OF 50% DW IV FOR... UD PRN IV 06/02/16 17:00 07/02/16 16:59 06/12/16 06:53 50 ML Glucagon (Glucagon Inj) 1 mg UD PRN SQ 06/02/16 17:00 07/02/16 16:59 Acetaminophen (Tylenol Tab) 650 mg Q4H PRN PO 06/03/16 14:30 07/03/16 14:29 06/07/16 10:52 650 MG Al Hydrox/Mg Hydrox/Simethicone (Maalox Max Susp) 15 ml Q4H PRN PO 06/03/16 14:30 07/03/16 14:29 06/09/16 23:46 15 ML Magnesium Hydroxide (Milk Of Magnesia Susp) 30 ml Q12H PRN PO 06/03/16 14:30 07/03/16 14:29 Ondansetron HCl (Zofran Inj) 4 mg Q6H PRN IV 06/03/16 14:30 07/03/16 14:29 06/05/16 15:11 4 MG Oxycodone/ Acetaminophen (Percocet 5-325mg Tab) 2 tab Q4H PRN PO 06/03/16 14:30 06/17/16 14:29 06/13/16 00:02 2 TAB Metoclopramide HCl (Reglan Inj) 5 mg Q6H PRN IV 06/03/16 14:30 07/03/16 14:29 06/05/16 17:22 5 MG Trazodone HCl (Desyrel Tab) 100 mg HS PO 06/05/16 21:00 07/05/16 20:59 06/14/16 21:35 100 MG Chlordiazepoxide (Librium Cap) 10 mg BID PO 06/06/16 09:00 07/06/16 08:59 06/15/16 08:35 10 MG Trazodone HCl (Desyrel Tab) 25 mg HS PO 06/05/16 21:00 07/05/16 20:59 06/14/16 21:36 25 MG Metoprolol Succinate 75 mg 75 mg QAM PO 06/08/16 09:00 07/08/16 08:59 06/15/16 05:40 75 MG Heparin Sodium/ Dextrose (Heparin 25,000 Unit/500ml D5W) 500 ml @ 37 mls/hr [id number] PRN IV 06/08/16 15:05 07/08/16 15:04 Future hold 06/15/16 07:26 37 MLS/HR Nitroglycerin (Nitrostat Tab) 0.4 mg PRN PRN SL 06/10/16 00:15 07/10/16 00:14 06/10/16 00:22 0.4 MG Lisinopril (Zestril Tab) 40 mg QAM PO 06/10/16 12:00 07/10/16 11:59 06/15/16 08:36 40 MG Enteral Nutritional Formula (Boost Breeze Nutritional Drink) 1 box AC PO 06/10/16 16:15 5/27/17 16:14 06/10/16 17:18 1 BOX Amlodipine Besylate (Norvasc Tab) 10 mg QAM PO 06/12/16 09:00 07/12/16 08:59 06/15/16 08:35 10 MG Morphine Sulfate (MoRPHine SULFATE INJ) 2 mg Q3H PRN IV 06/13/16 15:45 06/27/16 15:44 06/13/16 19:46 2 MG Insulin Aspart (novoLOG ASPART) SLIDING SCALE If C... ACHS SC 06/14/16 18:00 07/14/16 17:59 Metoprolol Succinate (Toprol Xl Tab) 50 mg PM PO 06/15/16 21:00 07/15/16 20:59 Metronidazole (Flagyl Tab) 500 mg BID PO 06/15/16 21:00 07/27/16 20:59 UNV Objective Vital Signs Date Time Temp Pulse Resp B/P Pulse Ox O2 Delivery O2 Flow Rate FiO2 06/15/16 08:39 73 138/65 06/15/16 07:39 36.2 73 18 183/83 94 Room Air 06/15/16 04:56 187/78 06/15/16 03:56 36.4 68 16 170/71 94 Room Air 06/14/16 23:27 Room Air 06/14/16 23:10 36.8 72 16 128/55 94 Room Air 06/14/16 16:00 Room Air 06/14/16 14:53 36.5 60 18 174/74 98 Room Air 06/14/16 14:38 36.3 62 138/68 06/14/16 14:15 56 145/58 06/14/16 14:00 56 138/53 06/14/16 13:45 60 161/60 06/14/16 13:30 56 138/53 06/14/16 13:15 56 132/68 06/14/16 13:00 54 156/65 06/14/16 12:45 54 150/61 06/14/16 12:39 36.5 60 157/67 06/14/16 12:30 60 142/67 06/14/16 12:15 57 142/66 06/14/16 12:00 55 148/62 06/14/16 11:45 52 136/58 06/14/16 11:30 55 136/60 06/14/16 11:15 55 136/61 06/14/16 11:00 65 145/67 06/14/16 10:25 60 20 151/69 93 Room Air Physical Exam General Appearance: no apparent distress, + obese, + pertinent finding ( lethargic this morning) Eyes: normal inspection, sclerae normal ENT: hearing grossly normal Neck: supple, trachea midline Respiratory/Chest: no respiratory distress, no accessory muscle use Cardiovascular: + pertinent finding (regular rate) Abdomen: normal bowel sounds Extremities: + pertinent finding (dressing on right foot, c/d/i. 1+ pitting edema right lower extremity) Neurologic/Psychiatric: + pertinent finding (lethargic this morning) Skin: normal color Laboratory Results Last 24 Hours Test 06/14/16 12:05 06/14/16 12:30 06/14/16 15:10 06/14/16 17:00 Bedside Glucose 55 mg/dl 75 mg/dl 77 mg/dl Activated Partial Thromboplast Time 81.9 SECONDS Partial Thromboplastin Ratio 3.2 Test 06/14/16 20:28 06/14/16 22:05 06/15/16 00:30 06/15/16 06:02 Bedside Glucose 90 mg/dl Activated Partial Thromboplast Time 250.2 SECONDS 35.7 SECONDS 53.9 SECONDS Partial Thromboplastin Ratio 9.5 1.4 2.1 Test 06/15/16 07:54 Bedside Glucose 116 mg/dl Assessment and Plan Patient with right 5th distal metatarsal abscess and osteomyelitis with chronic overlying ulceration and right sided pneumonia (resolving) and diarrhea. Wound culture growing MSSA, Enterococcus, and Bacteroides. He is currently only on Zosyn and Vancomycin, completed Azithromycin. C. Diff toxin was negative on . Feel that patient may have diarrhea related to abx therapy, therefore will D /C IV Zosyn and transition to PO Flagyl. Continue IV Vancomycin. He likely will need at least 1 more week of IV therapy pending further wound healing. We will continue to follow. PROVIDER ADDENDUM: Pt. reviewed with Ms. Linder. Agree with above assessment.
--- NOTE | 2016-06-15 11:31 | Progress Note ---
Subjective Date of Service: June 15, 2016. Subjective Pt evaluation today including: conversation w/ patient, chart review, lab review, review of studies patient seen at bedside today with nurse, dressings and right foot evaluated, also left foot evaluated due to left foot pain. Patient would benefit from a heel offloading boot to the left and likely would benefit from use on the right side as well. Recommend wound care recs per wound care team, unsure if they are following or not. Problem List Medical Problems: (1) Cellulitis of right foot Status: Acute (2) Sepsis Status: Acute Objective Vital Signs Date Time Temp Pulse Resp B/P Pulse Ox O2 Delivery O2 Flow Rate FiO2 06/15/16 08:39 73 138/65 06/15/16 07:39 36.2 73 18 183/83 94 Room Air 06/15/16 04:56 187/78 06/15/16 03:56 36.4 68 16 170/71 94 Room Air 06/14/16 23:27 Room Air 06/14/16 23:10 36.8 72 16 128/55 94 Room Air 06/14/16 16:00 Room Air 06/14/16 14:53 36.5 60 18 174/74 98 Room Air 06/14/16 14:38 36.3 62 138/68 06/14/16 14:15 56 145/58 06/14/16 14:00 56 138/53 06/14/16 13:45 60 161/60 06/14/16 13:30 56 138/53 06/14/16 13:15 56 132/68 06/14/16 13:00 54 156/65 06/14/16 12:45 54 150/61 06/14/16 12:39 36.5 60 157/67 06/14/16 12:30 60 142/67 06/14/16 12:15 57 142/66 06/14/16 12:00 55 148/62 06/14/16 11:45 52 136/58 06/14/16 11:30 55 136/60 Physical Exam Skin: + pertinent finding (right foot with plantar submetatarsal 5 ulcer that has dried hemorrhagic overlying the ulcer, this was a [facility] stage d grade 3 ulcer that has now healed with tissue over the ulcer, longer probing deep to bone, patient had vascular studies that were normal and patient under went I and D on 06/03, along the lateral side of the right foot - at incision site there is an open dehissed area of the incision were the packing was removed post op - combination of non viable and granular tissue is present here and this probes deep about .4 cm, just distal and plantar to this area was the site of the abscess that has subsequently resolved after I and D performed; improved erythema, still edema present but much improved) Laboratory Results Last 24 Hours Test 06/14/16 12:05 06/14/16 12:30 06/14/16 15:10 06/14/16 17:00 Bedside Glucose 55 mg/dl 75 mg/dl 77 mg/dl Activated Partial Thromboplast Time 81.9 SECONDS Partial Thromboplastin Ratio 3.2 Test 06/14/16 20:28 06/14/16 22:05 06/15/16 00:30 06/15/16 06:02 Bedside Glucose 90 mg/dl Activated Partial Thromboplast Time 250.2 SECONDS 35.7 SECONDS 53.9 SECONDS Partial Thromboplastin Ratio 9.5 1.4 2.1 Test 06/15/16 07:54 Bedside Glucose 116 mg/dl Assessment and Plan 1. right foot POD 12 - I and D, 5th metatarsal head resection, ulcer debridement - debridement at bedside of plantar submetatarsal 5 ulcer, as well as debridement of dehisced area laterally with #11 blade, recommend wound care recs for this, patient would benefit from either aquacell or collagen based product wicked into the ulcer or vac to help close space from packing that was removed; and xerform/allyven foam over the submetatarsal 5 ulcer, will again check with wound care for their recs, post xrays stable and show 5th metatarsal head resection; continue to elevate right foot with pillow and recommend partial weightbearing at this time time, appreciate ID recs, pathology stating acute osteomyelitis right 5th metatarsal head, overall the foot is greatly improved, from a podiatry stand point patient is stable for d/c , no further surgical dbridements are planned, will recommend to continue wound care to the area, patient will need f/u with me placed post d/c from a surgical stand point. Discharge planning: uncertain
[2016-06-15] MEDS: METRONIDAZOLE 500 MG TAB PO SCH ×2 (12:18→22:20)
[2016-06-15] MEDS: MoRPHine SULFATE 2 MG/ML CARP IV PRN (16:10)
--- NOTE | 2016-06-15 17:08 | Nephrology Progress Note ---
Nephrology Progress Note Date of Service June 15, 2016. Chief Complaint ESRD Subjective No acute events overnight. Bre was seen and evaluated in his hospital room this morning. He denied fevers or chills. He tolerated hemodialysis yesterday (UF 3 kg) without complications. No shortness of breath. Plan of care was discussed with Dr. Pfeiffer today. Review of Systems A complete review of systems was performed. Pertinent positives are noted above. All other systems are negative. Vital Signs Last 8 Hrs Date Time Temp Pulse Resp B/P Pulse Ox O2 Delivery O2 Flow Rate FiO2 06/15/16 16:00 93 Room Air 06/15/16 15:18 36.8 69 18 131/61 93 Room Air 06/15/16 12:28 36.6 64 18 160/73 95 Room Air 06/15/16 12:14 165/66 I & O 24-Hour Column 06/15/16 07:59 Intake Total 2703 ml Output Total 3525 ml Balance -822 ml Last Recorded Weight Weight (Kilograms): 114.300 Physical Exam General Appearance: WD/WN, no apparent distress Head: normocephalic, atraumatic Eyes: normal inspection, sclerae normal ENT: normal ENT inspection, pharynx normal Neck: supple, no JVD Respiratory/Chest: lungs clear, no respiratory distress, no accessory muscle use Cardiovascular: regular rate, rhythm, no gallop Abdomen/GI: non tender, soft Extremities/Musculoskelatal: normal inspection, no pedal edema, + pertinent finding (AVF with thrill and bruit) Neurologic/Psych: alert, oriented x 3 Family History FH: diabetes mellitus AUNT FH: stroke GRANDMOTHER Negative for CKD / ESRD Social History Smoking Status: Unknown if ever smoked Drug Use: none Marital Status: Housing Status: lives with family Occupation: retired . Retired. Former smoker (2ppd x 45 years, quit 2002) Laboratory Results Past 24 Hours Test 06/14/16 20:28 06/14/16 22:05 06/15/16 00:30 06/15/16 06:02 Bedside Glucose 90 mg/dl (70-99) Activated Partial Thromboplast Time 250.2 SECONDS (21.0-31.0) 35.7 SECONDS (21.0-31.0) 53.9 SECONDS (21.0-31.0) Partial Thromboplastin Ratio 9.5 1.4 2.1 Test 06/15/16 07:54 06/15/16 12:04 Bedside Glucose 116 mg/dl (70-99) 136 mg/dl (70-99) Allergies Coded Allergies: No Known Allergies (Verified , 06/02/16) Medications Current Inpatient Medications Medications (Trade) Dose Ordered Sig/Eliseo Route Start Time Stop Time Status Last Admin Dose Admin Polyethylene (Miralax Powder Packet) 17 gm DAILY PO 06/03/16 08:00 07/03/16 08:59 06/14/16 14:49 17 GM Allopurinol (Zyloprim Tab) 100 mg HS PO 06/02/16 21:00 07/02/16 20:59 06/14/16 21:36 100 MG Aspirin (Ecotrin Tab) 81 mg QAM PO 06/03/16 08:00 07/03/16 08:59 Future hold 06/15/16 08:36 81 MG Atorvastatin Calcium (Lipitor Tab) 20 mg DAILY PO 06/03/16 08:00 07/03/16 08:59 06/15/16 08:36 20 MG Calcium Acetate (Phoslo Cap) 667 mg TIDM PO 06/02/16 17:00 07/02/16 16:59 06/13/16 19:16 667 MG Furosemide (Lasix Tab) 40 mg DAILY PO 06/03/16 08:00 07/03/16 08:59 06/15/16 08:35 40 MG Ipratropium [place] (Atrovent Hfa Inhaler) 2 puffs QID PRN INH 06/02/16 12:30 07/02/16 12:29 Albuterol/ Ipratropium (Duoneb) 3 ml Q4H PRN INH 06/02/16 12:30 07/02/16 12:29 06/09/16 22:49 3 ML Meclizine HCl (Antivert Tab) 25 mg Q4H PRN PO 06/02/16 12:30 07/02/16 12:29 Tamsulosin HCl (Flomax Cap) 0.4 mg HS PO 06/02/16 21:00 07/02/16 20:59 06/14/16 21:35 0.4 MG Cholecalciferol (Vitamin D Tab) 2,000 inter.unit QAM PO 06/03/16 08:00 07/03/16 08:59 06/15/16 08:35 2,000 INTER.UNIT Insulin Detemir (Levemir Flexpen/ FlexTouch) 80 unit HS SC 06/02/16 21:00 07/02/16 20:59 06/13/16 21:20 80 UNIT Ranitidine HCl (zANTac TAB) 300 mg QAM PO 06/03/16 08:00 07/03/16 08:59 06/15/16 08:36 300 MG Oxycodone/ Acetaminophen (Percocet 5-325mg Tab) 1 tab Q4H PRN PO 06/02/16 12:30 06/16/16 12:29 06/13/16 08:19 1 TAB Vancomycin HCl (Consult) 1 ea UD PRN N/A 06/02/16 15:00 07/02/16 14:59 Glucose (Glucose 40% Gel) 15-30 GRAMS 15 GRAMS... UD PRN PO 06/02/16 17:00 07/02/16 16:59 06/14/16 07:02 15 GM Glucose (Glucose Chew Tab) 4-8 Tablets 4 Tabl... UD PRN PO 06/02/16 17:00 07/02/16 16:59 Dextrose (Dextrose 50% 50ML Syringe) 25-50ML OF 50% DW IV FOR... UD PRN IV 06/02/16 17:00 07/02/16 16:59 06/12/16 06:53 50 ML Glucagon (Glucagon Inj) 1 mg UD PRN SQ 06/02/16 17:00 07/02/16 16:59 Acetaminophen (Tylenol Tab) 650 mg Q4H PRN PO 06/03/16 14:30 07/03/16 14:29 06/07/16 10:52 650 MG Al Hydrox/Mg Hydrox/Simethicone (Maalox Max Susp) 15 ml Q4H PRN PO 06/03/16 14:30 07/03/16 14:29 06/09/16 23:46 15 ML Magnesium Hydroxide (Milk Of Magnesia Susp) 30 ml Q12H PRN PO 06/03/16 14:30 07/03/16 14:29 Ondansetron HCl (Zofran Inj) 4 mg Q6H PRN IV 06/03/16 14:30 07/03/16 14:29 06/05/16 15:11 4 MG Oxycodone/ Acetaminophen (Percocet 5-325mg Tab) 2 tab Q4H PRN PO 06/03/16 14:30 06/17/16 14:29 06/13/16 00:02 2 TAB Metoclopramide HCl (Reglan Inj) 5 mg Q6H PRN IV 06/03/16 14:30 07/03/16 14:29 06/05/16 17:22 5 MG Trazodone HCl (Desyrel Tab) 100 mg HS PO 06/05/16 21:00 07/05/16 20:59 06/14/16 21:35 100 MG Chlordiazepoxide (Librium Cap) 10 mg BID PO 06/06/16 09:00 07/06/16 08:59 06/15/16 08:35 10 MG Trazodone HCl (Desyrel Tab) 25 mg HS PO 06/05/16 21:00 07/05/16 20:59 06/14/16 21:36 25 MG Metoprolol Succinate 75 mg 75 mg QAM PO 06/08/16 09:00 07/08/16 08:59 06/15/16 05:40 75 MG Heparin Sodium/ Dextrose (Heparin 25,000 Unit/500ml D5W) 500 ml @ 37 mls/hr [id number] PRN IV 06/08/16 15:05 07/08/16 15:04 Future hold 06/15/16 14:55 37 MLS/HR Nitroglycerin (Nitrostat Tab) 0.4 mg PRN PRN SL 06/10/16 00:15 07/10/16 00:14 06/10/16 00:22 0.4 MG Lisinopril (Zestril Tab) 40 mg QAM PO 06/10/16 12:00 07/10/16 11:59 06/15/16 08:36 40 MG Amlodipine Besylate (Norvasc Tab) 10 mg QAM PO 06/12/16 09:00 07/12/16 08:59 06/15/16 08:35 10 MG Morphine Sulfate (MoRPHine SULFATE INJ) 2 mg Q3H PRN IV 06/13/16 15:45 06/27/16 15:44 06/15/16 16:10 2 MG Insulin Aspart (novoLOG ASPART) SLIDING SCALE If C... ACHS SC 06/14/16 18:00 07/14/16 17:59 Metoprolol Succinate (Toprol Xl Tab) 50 mg PM PO 06/15/16 21:00 07/15/16 20:59 Metronidazole (Flagyl Tab) 500 mg BID PO 06/15/16 12:00 07/27/16 11:59 06/15/16 12:18 500 MG Enteral Nutritional Formula (Boost Glucose Control) 1 can DAILY PO 06/16/16 09:00 07/16/16 08:59 Impression (1) End-stage renal disease on hemodialysis (2) Cellulitis of right foot (3) Sepsis (4) Monoclonal gammopathy (5) Diabetes mellitus, type II Bre is a 75-year-old male with end-stage renal disease on hemodialysis Tuesday, Tuesday, Tuesday at [facility] dialysis unit. Medical history notable for hypertension, diabetes mellitus, MGUS. He was admitted to the hospital on 06/02/16 with nausea and vomiting for few days as well as worsening right lower extremity chronic infected diabetic ulcer. 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 Wound culture grew MSSA and gram negative and blood culture was negative. 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 He was scheduled for fistulogram on 06/07/2016, however the procedure was canceled secondary to hypoxia and tachycardia. CTA chest was negative for PE but did reveal right sided pneumonia. He was subsequently diagnosed with new a flutter and started on anticoagulation. Recommendations -- HD MWF -- Vanco level pre-HD for post dialysis treatment -- Will discuss disposition arrangements with [facility] tomorrow -- Blood pressure appropriate -- Renal diet -- Repeat metabolic profile and CBC tomorrow AM
[2016-06-15] MEDS: TRAZODONE HCL 100 MG TAB PO SCH (22:16)
[2016-06-15] MEDS: TRAZODONE HCL 50 MG TAB PO SCH (22:17)
[2016-06-15] MEDS: INSULIN DETEMIR FLEXPEN/FLEX TOUCH 100 UNITS/ML 3ML SC SCH (22:18)
[2016-06-15] MEDS: TAMSULOSIN HCL 0.4 MG CAP PO SCH (22:20)
[2016-06-15] MEDS: METOPROLOL SUCC 50MG EXT REL TAB PO SCH (22:21)
[2016-06-15] MEDS: ALLOPURINOL 100 MG TAB PO SCH (22:22)
[2016-06-16] VITALS (23 sets, daily range): BP systolic 116–181; BP diastolic 44–87; PULSE 50–67; TEMP 36.5–36.7; O2SAT 92–95; Ht 185.4 cm; Wt 111.2 kg
[2016-06-16] MEDS: HEPARIN 25,000 UNIT/500ML D5W 500 ML IV PRN ×3 (04:16→07:04)
[2016-06-16 06:22] LABS: HEMATOCRIT 26.6 % (42-52); MEAN CELL VOLUME 88.1 fL (80-100); MEAN CORPUSCULAR HEMOGLOBIN 29.1 pg (25-34); MEAN CORPUSCULAR HGB CONC 33.1 g/dl (32-36); MEAN PLATELET VOLUME 8.2 fL (7.4-10.4); PLATELET COUNT 302 K/uL (130-400); RED BLOOD COUNT 3.02 M/uL (4.7-6.1); WHITE BLOOD COUNT 9.67 K/uL (4.8-10.8)
[2016-06-16 06:38] LABS: PARTIAL THROMBOPLASTIN RATIO 2.1
[2016-06-16] MEDS: METOPROLOL SUCC 25MG EXT REL TAB PO SCH (07:05)
[2016-06-16] MEDS: METRONIDAZOLE 500 MG TAB PO SCH ×2 (07:15→20:32)
[2016-06-16] MEDS: FUROSEMIDE 40 MG TAB PO SCH (07:16)
[2016-06-16] MEDS: CALCIUM ACETATE 667MG GELCAP PO SCH ×3 (07:16→17:37)
[2016-06-16] MEDS: AMLODIPINE BESYLATE 5 MG TAB PO SCH (07:16)
[2016-06-16] MEDS: ATORVASTATIN 20 MG TAB PO SCH (07:16)
[2016-06-16] MEDS: ASPIRIN 81 MG ECTAB PO SCH (07:16)
[2016-06-16 07:17] LABS: BUN/CREATININE RATIO 4.5 (10-20); CALCIUM 9.2 mg/dl (8.5-10.1); CREATININE 8.1 mg/dl (0.60-1.40); PHOSPHORUS 8.5 mg/dl (2.5-4.9); POTASSIUM 4.3 mmol/L (3.5-5.1)
[2016-06-16] MEDS: RANITIDINE HCL 150 MG TAB PO SCH (07:17)
[2016-06-16] MEDS: LISINOPRIL 40 MG TAB PO SCH (07:17)
[2016-06-16] MEDS: CHOLECALCIFEROL 1000 INTER.UNIT TAB PO SCH (07:17)
[2016-06-16] MEDS: POLYETHYLENE (MIRALAX) 17 GM PACK PO SCH (07:17)
[2016-06-16] MEDS: BOOST GLUCOSE CONTROL PO SCH (07:18)
[2016-06-16] MEDS: CHLORDIAZEPOXIDE 10 MG CAP PO SCH ×2 (07:23→20:31)
[2016-06-16] MEDS: INSULIN ASPART 100 UNITS/ML 3 ML PEN SC SCH ×4 (07:24→20:29)
--- NOTE | 2016-06-16 08:40 | Pharmacy Progress Note ---
Pharmacy Antibiotic Prog Note Date of Service June 16, 2016. Subjective The patient is currently receiving vancomycin after hemodialysis based upon levels The patient is currently on day # 15 of IV therapy. Objective Height (Feet): 6 Height (Inches): 1.00 Weight (Kilograms): 114.300 Levels: Item Value Date Time Random Vancomycin Level 19.3 mcg/ml 06/08/16 0455 Random Vancomycin Level 20.7 mcg/ml 06/10/16 0350 Random Vancomycin Level 16.1 mcg/ml 06/14/16 0535 Random Vancomycin Level 15.8 mcg/ml 06/16/16 0550 Lab Results (24hrs): Laboratory Tests Test 06/16/16 05:50 BUN/Creatinine Ratio 4.5 Blood Urea Nitrogen 37 mg/dl Creatinine 8.10 mg/dl White Blood Count 9.67 K/uL Micro Results: RUN DATE: 06/08/16 [facility] LAB PAGE 1 RUN TIME: 1446 Specimen Inquiry PATIENT: GUILLERMO MARTINEZ [facility] [place] U # : [id number] AGE/SX: 75/M ROOM: E104 REG : 06/02/[address]: Kentrell Suárez M : 1940 BED: 1 DIS : STATUS: ADM IN TLOC: SPEC #: [id number] PRUDENCIO: 06/03/16 STATUS: COMP REQ #: [id number] RECD: 06/03/16 [facility] DR: Kentrell Suárez M.D. SOURCE: ABSCESS ENTR: 06/03/[address] [facility] [address]: Obi Mendez M.D. [facility] Ele[facility]io Schneider D.O. Rowe-Bauer, Christina L., Zion Matson M.D. Thomas, Peter W., D.Harsha ORDERED: AER/RAO CULTSMR Procedure Result Verified Site GRAM STAIN Final 06/04/16-712 RESULT MODERATE WBCs SEEN MODERATE GRAM POSITIVE COCCI Phoned results to MINNIE DOSHI on 06/03/16 at 1543 by Kathia Holliday. Results were verbalized back to [email or web address]. OR AER/RAO CULT Final 06/08/16-0696 Organism 1 STAPHYLOCOCCUS AUREUS QUANITY MODERATE SENS SENSITIVITY TO FOLLOW +MIXWOUND PLUS LOW COUNTS OF PROBABLE SKIN LUCAS Organism 2 ENTEROCOCCUS FAECIUM QUANITY FEW SENS SENSITIVITY TO FOLLOW Organism 3 BACTEROIDES THETAIOTAOMICRON QUANITY FEW SENS NO SENSITIVITY TO FOLLOW STAPH AUR ET FAECIUM M.I.C. RX M.I.C. RX --------- ------ --------- ------ TRIMET/SULFA <=0.5/9.5 S AMPICILLIN >8 R * OXACILLIN 0.5 S GENT SYNERGY >500 R VANCOMYCIN 1 S 1 S PENICILLIN >8 R ERYTHROMYCIN >4 R TETRACYCLINE <=4 S CLINDAMYCIN <=0.5 S DAPTOMYCIN <=0.5 S 4 S STREP SYNERGY <=1000 S ENTEROCOCCUS FAECIUM: POSITIVE COMBO 33 Streptomycin Synergy Screen S Assessment & Plan ASSESSMENT: * Mr Martinez is a 75 y/o M who was admitted on 06/02/16 with osteomyelitis. He has a PMH of hemodialysis on MWF and type 2 diabetes. He underwent a toe amputation on 06/03/2016. * He has been on Zosyn (06/02/16-06/15/16) which was switched to Flagyl and also vancomycin after hemodialysis. The patient has been improving since admission. He is afebrile with a resolved leukocytosis. PLAN This drug level is: Therapeutic Give vancomycin 750 mg IV x 1 after dialysis (vancomycin 500 mg IV after dialysis appears to not be sufficient for the patient as his random levels have been trending downwards) Goal peak level estimate: between 35 - 40 mcg/mL. Goal trough level estimate: between 15 - 20 mcg/mL (indication: osteomyelitis). Random level has been ordered for: in the morning prior to dialysis. Pharmacy will continue to follow and will adjust dose/frequency as necessary. Thank you
[2016-06-16] MEDS ORDERED: EPOETIN ALFA 10,000 UNITS/ML VIAL IV SCH (12:00)
--- NOTE | 2016-06-16 12:34 | Dialysis Progress Note ---
Hemodialysis Note Date of Service June 16, 2016. Chief Complaint ESRD Subjective No events overnight. No complaints this morning. Mr. Carmichael was seen and evaluated during hemodialysis. He was tolerating dialysis well without complications. Blood pressure appropriate. He denies any blood in his stool or melena. He remains on heparin gtt. Review of Systems A complete review of systems was performed. Pertinent positives are noted above. All other systems are negative. Vital Signs Last 8 Hrs Date Time Temp Pulse Resp B/P Pulse Ox O2 Delivery O2 Flow Rate FiO2 06/16/16 12:00 55 140/60 06/16/16 11:45 55 125/67 06/16/16 11:30 57 132/52 06/16/16 11:15 55 156/67 06/16/16 11:00 57 144/63 06/16/16 10:45 51 138/74 06/16/16 10:30 67 131/67 06/16/16 10:15 54 127/58 06/16/16 10:00 53 134/64 06/16/16 09:45 52 122/57 06/16/16 09:30 53 130/60 06/16/16 09:15 51 122/52 06/16/16 09:00 55 117/49 06/16/16 08:45 50 122/51 06/16/16 08:35 54 121/57 06/16/16 08:15 36.6 55 136/59 06/16/16 07:10 Room Air 06/16/16 06:30 36.7 54 16 116/64 95 Room Air I & O 24-Hour Column 06/16/16 08:00 Intake Total 2006 ml Output Total 500 ml Balance 1506 ml Last Recorded Weight Weight (Kilograms): 114.300 Physical Exam General Appearance: WD/WN, no apparent distress Head: normocephalic, atraumatic Eyes: normal inspection, sclerae normal ENT: normal ENT inspection, pharynx normal Neck: supple, no JVD Respiratory/Chest: lungs clear, no respiratory distress, no accessory muscle use Cardiovascular: regular rate, rhythm, no gallop, no JVD Back: normal inspection, no muscle spasm Abdomen/GI: non tender, soft Extremities/Musculoskelatal: normal inspection, normal capillary refill, + pertinent finding (AVF with appropriate Qb) Neurologic/Psych: alert, oriented x 3 Family History Negative for CKD / ESRD Social History Smoking Status: Unknown if ever smoked Drug Use: none Marital Status: Housing Status: lives with family Occupation: retired . Retired. Former smoker (2ppd x 45 years, quit 2002) Laboratory Results Past 24 Hours 06/16/16 05:50 06/16/16 05:50 Test 06/15/16 17:02 06/15/16 20:14 06/16/16 05:50 06/16/16 06:04 Bedside Glucose 158 mg/dl (70-99) 181 mg/dl (70-99) 55 mg/dl (70-99) Red Blood Count 3.02 M/uL (4.7-6.1) Mean Corpuscular Volume 88.1 fL (80-100) Mean Corpuscular Hemoglobin 29.1 pg (25-34) Mean Corpuscular Hemoglobin Concent 33.1 g/dl (32-36) RDW Standard Deviation 51.5 fL (36.4-46.3) RDW Coefficient of Variation 16.1 % (11.5-14.5) Mean Platelet Volume 8.2 fL (7.4-10.4) Activated Partial Thromboplast Time 55.8 SECONDS (21.0-31.0) Partial Thromboplastin Ratio 2.1 Anion Gap 13.0 mmol/L (3-11) Est Creatinine Clear Calc Drug Dose 10.6 ml/min Estimated GFR () 6.8 Estimated GFR (Non- 5.9 BUN/Creatinine Ratio 4.5 (10-20) Calcium Level 9.2 mg/dl (8.5-10.1) Phosphorus Level 8.5 mg/dl (2.5-4.9) Albumin 2.0 gm/dl (3.4-5.0) Random Vancomycin Level 15.8 mcg/ml Test 06/16/16 06:29 06/16/16 07:14 06/16/16 11:11 06/16/16 12:01 Bedside Glucose 61 mg/dl (70-99) 80 mg/dl (70-99) 58 mg/dl (70-99) 92 mg/dl (70-99) Allergies Coded Allergies: No Known Allergies (Verified , 06/02/16) Medications Current Inpatient Medications Medications (Trade) Dose Ordered Sig/Eliseo Route Start Time Stop Time Status Last Admin Dose Admin Polyethylene (Miralax Powder Packet) 17 gm DAILY PO 06/03/16 08:00 07/03/16 08:59 06/14/16 14:49 17 GM Allopurinol (Zyloprim Tab) 100 mg HS PO 06/02/16 21:00 07/02/16 20:59 06/15/16 22:22 100 MG Aspirin (Ecotrin Tab) 81 mg QAM PO 06/03/16 08:00 07/03/16 08:59 Future hold 06/16/16 07:16 81 MG Atorvastatin Calcium (Lipitor Tab) 20 mg DAILY PO 06/03/16 08:00 07/03/16 08:59 06/16/16 07:16 20 MG Calcium Acetate (Phoslo Cap) 667 mg TIDM PO 06/02/16 17:00 07/02/16 16:59 06/16/16 07:16 667 MG Furosemide (Lasix Tab) 40 mg DAILY PO 06/03/16 08:00 07/03/16 08:59 06/16/16 07:16 40 MG Ipratropium [place] (Atrovent Hfa Inhaler) 2 puffs QID PRN INH 06/02/16 12:30 07/02/16 12:29 Albuterol/ Ipratropium (Duoneb) 3 ml Q4H PRN INH 06/02/16 12:30 07/02/16 12:29 06/09/16 22:49 3 ML Meclizine HCl (Antivert Tab) 25 mg Q4H PRN PO 06/02/16 12:30 07/02/16 12:29 Tamsulosin HCl (Flomax Cap) 0.4 mg HS PO 06/02/16 21:00 07/02/16 20:59 06/15/16 22:20 0.4 MG Cholecalciferol (Vitamin D Tab) 2,000 inter.unit QAM PO 06/03/16 08:00 07/03/16 08:59 06/16/16 07:17 2,000 INTER.UNIT Insulin Detemir (Levemir Flexpen/ FlexTouch) 80 unit HS SC 06/02/16 21:00 07/02/16 20:59 06/15/16 22:18 80 UNIT Ranitidine HCl (zANTac TAB) 300 mg QAM PO 06/03/16 08:00 07/03/16 08:59 06/16/16 07:17 300 MG Oxycodone/ Acetaminophen (Percocet 5-325mg Tab) 1 tab Q4H PRN PO 06/02/16 12:30 06/16/16 12:29 06/13/16 08:19 1 TAB Vancomycin HCl (Consult) 1 ea UD PRN N/A 06/02/16 15:00 07/02/16 14:59 Glucose (Glucose 40% Gel) 15-30 GRAMS 15 GRAMS... UD PRN PO 06/02/16 17:00 07/02/16 16:59 06/14/16 07:02 15 GM Glucose (Glucose Chew Tab) 4-8 Tablets 4 Tabl... UD PRN PO 06/02/16 17:00 07/02/16 16:59 06/16/16 06:07 4 TABS Dextrose (Dextrose 50% 50ML Syringe) 25-50ML OF 50% DW IV FOR... UD PRN IV 06/02/16 17:00 07/02/16 16:59 06/12/16 06:53 50 ML Glucagon (Glucagon Inj) 1 mg UD PRN SQ 06/02/16 17:00 07/02/16 16:59 Acetaminophen (Tylenol Tab) 650 mg Q4H PRN PO 06/03/16 14:30 07/03/16 14:29 06/07/16 10:52 650 MG Al Hydrox/Mg Hydrox/Simethicone (Maalox Max Susp) 15 ml Q4H PRN PO 06/03/16 14:30 07/03/16 14:29 06/09/16 23:46 15 ML Magnesium Hydroxide (Milk Of Magnesia Susp) 30 ml Q12H PRN PO 06/03/16 14:30 07/03/16 14:29 Ondansetron HCl (Zofran Inj) 4 mg Q6H PRN IV 06/03/16 14:30 07/03/16 14:29 06/05/16 15:11 4 MG Oxycodone/ Acetaminophen (Percocet 5-325mg Tab) 2 tab Q4H PRN PO 06/03/16 14:30 06/17/16 14:29 06/13/16 00:02 2 TAB Metoclopramide HCl (Reglan Inj) 5 mg Q6H PRN IV 06/03/16 14:30 07/03/16 14:29 06/05/16 17:22 5 MG Trazodone HCl (Desyrel Tab) 100 mg HS PO 06/05/16 21:00 07/05/16 20:59 06/15/16 22:16 100 MG Chlordiazepoxide (Librium Cap) 10 mg BID PO 06/06/16 09:00 07/06/16 08:59 06/16/16 07:23 10 MG Trazodone HCl (Desyrel Tab) 25 mg HS PO 06/05/16 21:00 07/05/16 20:59 06/15/16 22:17 25 MG Metoprolol Succinate 75 mg 75 mg QAM PO 06/08/16 09:00 07/08/16 08:59 06/15/16 05:40 75 MG Heparin Sodium/ Dextrose (Heparin 25,000 Unit/500ml D5W) 500 ml @ 37 mls/hr [id number] PRN IV 06/08/16 15:05 07/08/16 15:04 Future hold 06/16/16 07:04 37 MLS/HR Nitroglycerin (Nitrostat Tab) 0.4 mg PRN PRN SL 06/10/16 00:15 07/10/16 00:14 06/10/16 00:22 0.4 MG Lisinopril (Zestril Tab) 40 mg QAM PO 06/10/16 12:00 07/10/16 11:59 06/16/16 07:17 40 MG Amlodipine Besylate (Norvasc Tab) 10 mg QAM PO 06/12/16 09:00 07/12/16 08:59 06/16/16 07:16 10 MG Morphine Sulfate (MoRPHine SULFATE INJ) 2 mg Q3H PRN IV 06/13/16 15:45 06/27/16 15:44 06/15/16 16:10 2 MG Insulin Aspart (novoLOG ASPART) SLIDING SCALE If C... ACHS SC 06/14/16 18:00 07/14/16 17:59 06/15/16 22:19 1 UNITS Metoprolol Succinate (Toprol Xl Tab) 50 mg PM PO 06/15/16 21:00 07/15/16 20:59 06/15/16 22:21 50 MG Metronidazole (Flagyl Tab) 500 mg BID PO 06/15/16 12:00 07/27/16 11:59 06/16/16 07:15 500 MG Enteral Nutritional Formula 1 can 1 can DAILY PO 06/16/16 09:00 07/16/16 08:59 Vancomycin HCl/ Sodium Chloride (Vancomycin Inj/ Nss 250ml) 265 ml @ 125 mls/hr TODAY@1600 IV 06/16/16 16:00 06/16/16 23:59 Epoetin Vini (Procrit Inj) 10,000 units TODAY@1200 IV 06/16/16 12:00 06/16/16 18:00 Impression (1) End-stage renal disease on hemodialysis (2) Cellulitis of right foot (3) Sepsis (4) Monoclonal gammopathy (5) Diabetes mellitus, type II Bre is a 75-year-old male with end-stage renal disease on hemodialysis Tuesday, Tuesday, Tuesday at [facility] dialysis unit. Medical history notable for hypertension, diabetes mellitus, MGUS. He was admitted to the hospital on 06/02/16 with nausea and vomiting for few days as well as worsening right lower extremity chronic infected diabetic ulcer. 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 Wound culture grew MSSA and gram negative and blood culture was negative. 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 He was scheduled for fistulogram on 06/07/2016, however the procedure was canceled secondary to hypoxia and tachycardia. CTA chest was negative for PE but did reveal right sided pneumonia. He was subsequently diagnosed with new a flutter and started on anticoagulation. He remains on a heparin gtt this morning. Recommendations -- HD MWF, UF goal 3 kg -- He remains on heparin gtt -- Blood pressure appropriate -- Epogen 76854 IU QHD -- Qb appropriate -- 3K bath -- Vanco post HD
[2016-06-16] MEDS ORDERED: OXYCODONE/ACETAMINOPHEN 5-325 TAB PO PRN (14:00)
[2016-06-16] MEDS ORDERED: PHARMACY GLYCEMIC MGMT CONSULT PRN (14:03)
--- NOTE | 2016-06-16 14:40 | Pharmacy Progress Note ---
Glycemic Control Intl Consult Date of Service June 16, 2016. Scope Glycemic Pharmacist consulted by Dr Pfeiffer on 06/16/2016 for glycemic control and to write orders per [facility] inpatient glycemic control protocol Objective Weight (Kilograms): 114.300 Accuchecks BSG (last 24hrs): Test 06/15/16 17:02 06/15/16 20:14 06/16/16 05:50 06/16/16 06:04 Bedside Glucose 158 mg/dl (70-99) 181 mg/dl (70-99) 55 mg/dl (70-99) Random Glucose 50 mg/dl (70-99) Test 06/16/16 06:29 06/16/16 06:43 06/16/16 07:14 06/16/16 11:11 Bedside Glucose 61 mg/dl (70-99) 65 mg/dl (70-99) 80 mg/dl (70-99) 58 mg/dl (70-99) Test 06/16/16 11:32 06/16/16 12:01 Bedside Glucose 63 mg/dl (70-99) 92 mg/dl (70-99) Laboratory Data (last 24hrs) Test 06/16/16 05:50 Anion Gap 13.0 mmol/L BUN/Creatinine Ratio 4.5 Blood Urea Nitrogen 37 mg/dl Creatinine 8.10 mg/dl Potassium Level 4.3 mmol/L Sodium Level 133 mmol/L White Blood Count 9.67 K/uL Recent Pertinent Medications Outpatient Anti-diabetic Regimen: * Levemir 80 units qHS; Novolog 60 units twice daily * A1c = 7.7 % 11/2015 The patient is currently receiving: * Basal insulin: Lantus 80 units every 24 hours in the evening ( sometimes refuses) * Correctional Insulin: Novolog Correction per scale ACHS Goal Range: Low 110 mg/dL - High 160 mg/dL Correction Factor: 30 mg/dL/unit * Prandial insulin: Per carb ratio of 1 unit per 8 grams CHO consumed Risk Factors for Insulin Resistance: * Infection: osteomyelitis s/p amputation this admission; currently on vancomycin and Flagyl * IVF: heparin gtt * Recent Surgery: 06/03/2016 toe amputation (POD #13) * Diet: type 2 diet (eats very little, 25% of breakfast this morning) Assessment & Plan ASSESSMENT: * ADA & AACE recommend a goal blood sugar range 140-180 mg/dl for the majority of critically ill & non-critically ill patients. However, more stringent targets may be selected in individual cases. * Mr Carmichael is a 75 y/o M with ESRD on dialysis MWF plus type 2 diabetes. He was admitted 06/02/2016 with osteomyeletits and subsequently underwent an amputation on 06/03/2016. He has been hospitalized since receiving Zosyn and vancomycin for the infection. * Recently, the patient has suffered from several low blood sugars. They appear to happen after the patient receives Levemir 80 units the night before. He has been treated on two separate days for hypoglycemia. This indicates the Levemir dose is too high for the patient. On 06/14/16 (for example), the patient's blood sugars all remained belwo 100 mg/dL after receiving 80 units of Levemir the day before. The next day on 06/15/16 the patient's blood sugars ranged from 116 mg/dL to 181 mg/dL which is reasonable for him. * Therefore, since the patient received 80 units of Levemir on 06/15/16 and has had sustained hypoglycemia today, I will not schedule any Levemir tonight. I believe that his blood sugars will recover tomorrow but not until the evening when he requires more Levemir. The patient also underwent hemodialysis today. He does not eat much and may be considered NPO even though he has a diet ordered * I also loosened the correctional Novolog in order to prevent any future hypoglycemia. PLAN FOR INPATIENT GLYCEMIC CONTROL: * STOP Levemir 80 units SQ qhs and resume when blood sugars are greater than 180 mg/dL * LOOSEN correction factor to 30 mg/dl/unit * LOOSEN carb ratio to 1 unit per 10 grams CHO consumed * Changing goal range to Low 140 mg/dL - High 180 mg/dL * Please note that the plan above was derived based on current level of insulin resistance and hospital stress. These recommendations are appropriate for inpatient admission only. Plan of care upon discharge will need to be reassessed to avoid potential outpatient hypo/hyperglycemia. Thank you.
[2016-06-16] MEDS ORDERED: VANCOMYCIN INJ 750 MG in SODIUM CHLORIDE 0.9% 250ML 250 ML IV SCH (16:00)
[2016-06-16] MEDS ORDERED: WARFARIN SOD 10 MG TAB PO ONE (16:00)
--- NOTE | 2016-06-16 16:25 | Progress Note ---
Subjective Date of Service: June 16, 2016. Subjective Pt evaluation today including: conversation w/ patient, chart review, lab review, review of studies Patient seen at bedside, was sleepy during visit, right foot dressings clean, dry and intact Problem List Medical Problems: (1) Cellulitis of right foot Status: Acute (2) Sepsis Status: Acute Objective Vital Signs Date Time Temp Pulse Resp B/P Pulse Ox O2 Delivery O2 Flow Rate FiO2 06/16/16 16:05 141/87 149/77 06/16/16 15:02 36.7 55 16 171/62 95 Room Air 06/16/16 12:15 55 130/60 06/16/16 12:02 36.5 50 131/44 06/16/16 12:00 55 140/60 06/16/16 11:45 55 125/67 06/16/16 11:30 57 132/52 06/16/16 11:15 55 156/67 06/16/16 11:00 57 144/63 06/16/16 10:45 51 138/74 06/16/16 10:30 67 131/67 06/16/16 10:15 54 127/58 06/16/16 10:00 53 134/64 06/16/16 09:45 52 122/57 06/16/16 09:30 53 130/60 06/16/16 09:15 51 122/52 06/16/16 09:00 55 117/49 06/16/16 08:45 50 122/51 06/16/16 08:35 54 121/57 06/16/16 08:15 36.6 55 136/59 06/16/16 07:10 Room Air 06/16/16 06:30 36.7 54 16 116/64 95 Room Air 06/15/16 23:30 94 Room Air 06/15/16 22:57 36.7 66 16 162/75 94 Room Air Physical Exam Skin: + pertinent finding (right foot dressings clean, dry and intact - no dressing change today) Laboratory Results Last 24 Hours Test 06/15/16 17:02 06/15/16 20:14 06/16/16 05:50 06/16/16 06:04 Bedside Glucose 158 mg/dl 181 mg/dl 55 mg/dl White Blood Count 9.67 K/uL Red Blood Count 3.02 M/uL Hemoglobin 8.8 g/dL Hematocrit 26.6 % Mean Corpuscular Volume 88.1 fL Mean Corpuscular Hemoglobin 29.1 pg Mean Corpuscular Hemoglobin Concent 33.1 g/dl RDW Standard Deviation 51.5 fL RDW Coefficient of Variation 16.1 % Platelet Count 302 K/uL Mean Platelet Volume 8.2 fL Activated Partial Thromboplast Time 55.8 SECONDS Partial Thromboplastin Ratio 2.1 Sodium Level 133 mmol/L Potassium Level 4.3 mmol/L Chloride Level 96 mmol/L Carbon Dioxide Level 24 mmol/L Anion Gap 13.0 mmol/L Blood Urea Nitrogen 37 mg/dl Creatinine 8.10 mg/dl Est Creatinine Clear Calc Drug Dose 10.6 ml/min Estimated GFR () 6.8 Estimated GFR (Non- 5.9 BUN/Creatinine Ratio 4.5 Random Glucose 50 mg/dl Calcium Level 9.2 mg/dl Phosphorus Level 8.5 mg/dl Albumin 2.0 gm/dl Random Vancomycin Level 15.8 mcg/ml Test 06/16/16 06:29 06/16/16 06:43 06/16/16 07:14 06/16/16 11:11 Bedside Glucose 61 mg/dl 65 mg/dl 80 mg/dl 58 mg/dl Test 06/16/16 11:32 06/16/16 12:01 Bedside Glucose 63 mg/dl 92 mg/dl Assessment and Plan 1. right foot POD 13- I and D, 5th metatarsal head resection, ulcer debridement - debridement at bedside of plantar submetatarsal 5 ulcer, as well as debridement of dehisced area laterally with #11 blade, recommend wound care, post xrays stable and show 5th metatarsal head resection; continue to elevate right foot with pillow and recommend partial weightbearing at this time time, appreciate ID recs, pathology stating acute osteomyelitis right 5th metatarsal head, overall the foot is greatly improved, from a podiatry stand point patient is stable for d/c, no further surgical dbridements are planned, will recommend to continue wound care to the area, patient will need f/u with me placed post d/ c from a surgical stand point. Discharge planning: uncertain
--- NOTE | 2016-06-16 16:33 | Progress Note ---
Subjective Date of Service: June 15, 2016. Subjective Pt evaluation today including: conversation w/ patient, physical exam, lab review, conversation w/ clinical consultant, review of inpatient medication list Pain: right foot PO Intake: adequate Voiding: no voiding problems feeling tired, not sure he can go home tomorrow plan for HD tomorrow trying to determine how we can get Vancomycin administered Problem List Medical Problems: (1) Cellulitis of right foot Status: Acute (2) Sepsis Status: Acute Review of Systems Constitutional: + fatigue, + weakness All Other Systems: Reviewed and Negative Medications Current Inpatient Medications Medications (Trade) Dose Ordered Sig/Eliseo Route Start Time Stop Time Status Last Admin Dose Admin Polyethylene (Miralax Powder Packet) 17 gm DAILY PO 06/03/16 08:00 07/03/16 08:59 06/14/16 14:49 17 GM Allopurinol (Zyloprim Tab) 100 mg HS PO 06/02/16 21:00 07/02/16 20:59 06/14/16 21:36 100 MG Aspirin (Ecotrin Tab) 81 mg QAM PO 06/03/16 08:00 07/03/16 08:59 Future hold 06/15/16 08:36 81 MG Atorvastatin Calcium (Lipitor Tab) 20 mg DAILY PO 06/03/16 08:00 07/03/16 08:59 06/15/16 08:36 20 MG Calcium Acetate (Phoslo Cap) 667 mg TIDM PO 06/02/16 17:00 07/02/16 16:59 06/13/16 19:16 667 MG Furosemide (Lasix Tab) 40 mg DAILY PO 06/03/16 08:00 07/03/16 08:59 06/15/16 08:35 40 MG Ipratropium [place] (Atrovent Hfa Inhaler) 2 puffs QID PRN INH 06/02/16 12:30 07/02/16 12:29 Albuterol/ Ipratropium (Duoneb) 3 ml Q4H PRN INH 06/02/16 12:30 07/02/16 12:29 06/09/16 22:49 3 ML Meclizine HCl (Antivert Tab) 25 mg Q4H PRN PO 06/02/16 12:30 07/02/16 12:29 Tamsulosin HCl (Flomax Cap) 0.4 mg HS PO 06/02/16 21:00 07/02/16 20:59 06/14/16 21:35 0.4 MG Cholecalciferol (Vitamin D Tab) 2,000 inter.unit QAM PO 06/03/16 08:00 07/03/16 08:59 06/15/16 08:35 2,000 INTER.UNIT Insulin Detemir (Levemir Flexpen/ FlexTouch) 80 unit HS SC 06/02/16 21:00 07/02/16 20:59 06/13/16 21:20 80 UNIT Ranitidine HCl (zANTac TAB) 300 mg QAM PO 06/03/16 08:00 07/03/16 08:59 06/15/16 08:36 300 MG Oxycodone/ Acetaminophen (Percocet 5-325mg Tab) 1 tab Q4H PRN PO 06/02/16 12:30 06/16/16 12:29 06/13/16 08:19 1 TAB Vancomycin HCl (Consult) 1 ea UD PRN N/A 06/02/16 15:00 07/02/16 14:59 Glucose (Glucose 40% Gel) 15-30 GRAMS 15 GRAMS... UD PRN PO 06/02/16 17:00 07/02/16 16:59 06/14/16 07:02 15 GM Glucose (Glucose Chew Tab) 4-8 Tablets 4 Tabl... UD PRN PO 06/02/16 17:00 07/02/16 16:59 Dextrose (Dextrose 50% 50ML Syringe) 25-50ML OF 50% DW IV FOR... UD PRN IV 06/02/16 17:00 07/02/16 16:59 06/12/16 06:53 50 ML Glucagon (Glucagon Inj) 1 mg UD PRN SQ 06/02/16 17:00 07/02/16 16:59 Acetaminophen (Tylenol Tab) 650 mg Q4H PRN PO 06/03/16 14:30 07/03/16 14:29 06/07/16 10:52 650 MG Al Hydrox/Mg Hydrox/Simethicone (Maalox Max Susp) 15 ml Q4H PRN PO 06/03/16 14:30 07/03/16 14:29 06/09/16 23:46 15 ML Magnesium Hydroxide (Milk Of Magnesia Susp) 30 ml Q12H PRN PO 06/03/16 14:30 07/03/16 14:29 Ondansetron HCl (Zofran Inj) 4 mg Q6H PRN IV 06/03/16 14:30 07/03/16 14:29 06/05/16 15:11 4 MG Oxycodone/ Acetaminophen (Percocet 5-325mg Tab) 2 tab Q4H PRN PO 06/03/16 14:30 06/17/16 14:29 06/13/16 00:02 2 TAB Metoclopramide HCl (Reglan Inj) 5 mg Q6H PRN IV 06/03/16 14:30 07/03/16 14:29 06/05/16 17:22 5 MG Trazodone HCl (Desyrel Tab) 100 mg HS PO 06/05/16 21:00 07/05/16 20:59 06/14/16 21:35 100 MG Chlordiazepoxide (Librium Cap) 10 mg BID PO 06/06/16 09:00 07/06/16 08:59 06/15/16 08:35 10 MG Trazodone HCl (Desyrel Tab) 25 mg HS PO 06/05/16 21:00 07/05/16 20:59 06/14/16 21:36 25 MG Metoprolol Succinate 75 mg 75 mg QAM PO 06/08/16 09:00 07/08/16 08:59 06/15/16 05:40 75 MG Heparin Sodium/ Dextrose (Heparin 25,000 Unit/500ml D5W) 500 ml @ 37 mls/hr [id number] PRN IV 06/08/16 15:05 07/08/16 15:04 Future hold 06/15/16 14:55 37 MLS/HR Nitroglycerin (Nitrostat Tab) 0.4 mg PRN PRN SL 06/10/16 00:15 07/10/16 00:14 06/10/16 00:22 0.4 MG Lisinopril (Zestril Tab) 40 mg QAM PO 06/10/16 12:00 07/10/16 11:59 06/15/16 08:36 40 MG Amlodipine Besylate (Norvasc Tab) 10 mg QAM PO 06/12/16 09:00 07/12/16 08:59 06/15/16 08:35 10 MG Morphine Sulfate (MoRPHine SULFATE INJ) 2 mg Q3H PRN IV 06/13/16 15:45 06/27/16 15:44 06/15/16 16:10 2 MG Insulin Aspart (novoLOG ASPART) SLIDING SCALE If C... ACHS SC 06/14/16 18:00 07/14/16 17:59 Metoprolol Succinate (Toprol Xl Tab) 50 mg PM PO 06/15/16 21:00 07/15/16 20:59 Metronidazole (Flagyl Tab) 500 mg BID PO 06/15/16 12:00 07/27/16 11:59 06/15/16 12:18 500 MG Enteral Nutritional Formula (Boost Glucose Control) 1 can DAILY PO 06/16/16 09:00 07/16/16 08:59 Objective Vital Signs Date Time Temp Pulse Resp B/P Pulse Ox O2 Delivery O2 Flow Rate FiO2 06/15/16 16:00 93 Room Air 06/15/16 15:18 36.8 69 18 131/61 93 Room Air 06/15/16 12:28 36.6 64 18 160/73 95 Room Air 06/15/16 12:14 165/66 06/15/16 08:39 73 138/65 06/15/16 08:00 Room Air 06/15/16 07:39 36.2 73 18 183/83 94 Room Air 06/15/16 04:56 187/78 06/15/16 03:56 36.4 68 16 170/71 94 Room Air 06/14/16 23:27 Room Air 06/14/16 23:10 36.8 72 16 128/55 94 Room Air Physical Exam General Appearance: WD/WN, no apparent distress Eyes: normal inspection, EOMI, sclerae normal ENT: normal ENT inspection, hearing grossly normal, pharynx normal Neck: supple, no adenopathy, no JVD Respiratory/Chest: chest non-tender, lungs clear, normal breath sounds, no respiratory distress, no accessory muscle use Cardiovascular: regular rate, rhythm, no edema, no gallop, no JVD, no murmur Abdomen: normal bowel sounds, non tender, soft, no organomegaly Extremities: normal range of motion, non-tender, normal inspection, no pedal edema, no calf tenderness Neurologic/Psychiatric: 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 as tested, no motor/sensory deficits, alert, normal mood/affect, oriented x 3 Skin: normal color, warm/dry, no rash Laboratory Results Last 24 Hours Test 06/14/16 20:28 06/14/16 22:05 06/15/16 00:30 06/15/16 06:02 Bedside Glucose 90 mg/dl Activated Partial Thromboplast Time 250.2 SECONDS 35.7 SECONDS 53.9 SECONDS Partial Thromboplastin Ratio 9.5 1.4 2.1 Test 06/15/16 07:54 06/15/16 12:04 Bedside Glucose 116 mg/dl 136 mg/dl Assessment and Plan RIGHT DIABETIC FOOT INFECTION Growing MSSA, enterococcus, Bacteroides ID consulted Surgical debridement 06/03 Wound care following Continue IV antibiotics for now per infectious disease Per ID note, recommend one more week of Vancomycin and PO Flagyl can get Vancomycin after HD Continue to follow wound care post discharge prefers [place] to Percocet, will change ATRIAL FIBRILLATION Currently in normal sinus rhythm which is rate controlled stop heparin gtt since in NSR, start Coumadin on 06/16 Continue metoprolol succinate HYPOXIA History of tobacco abuse 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 Hardin's input fistulogram on 06/14 ANEMIA Hemoglobin currently 8.0 Stable from 06/10/16 Anemia of chronic disease No hx of blood transfusion Epogen 06/04 and 06/11 Continue to follow serial labs HYPERTENSION Continue medications as titrated by nephrology Pressure is better controlled today Continue to follow clinically Vital signs per protocol DEPRESSION/ANXIETY Continue Librium and Seroquel Good pain control needed GI PROPHYLAXIS Continue Zantac DVT PROPHYLAXIS Continue on heparin Limited ambulation secondary to right foot surgery Increase ambulation as tolerated Discharge planning: uncertain
[2016-06-16] MEDS ORDERED: HYDROCODONE/ACETAMOPHEN 5/325MG TAB PO PRN ×2 (16:45)
[2016-06-16] MEDS: TRAZODONE HCL 100 MG TAB PO SCH (20:32)
[2016-06-16] MEDS: TRAZODONE HCL 50 MG TAB PO SCH (20:32)
[2016-06-16] MEDS: TAMSULOSIN HCL 0.4 MG CAP PO SCH (20:33)
[2016-06-16] MEDS: METOPROLOL SUCC 50MG EXT REL TAB PO SCH (20:34)
[2016-06-16] MEDS: ALLOPURINOL 100 MG TAB PO SCH (20:34)
[2016-06-17 04:00] VITALS: BP 173/74; PULSE 65; O2SAT 97
[2016-06-17 06:24] VITALS: BP 114/54; PULSE 65
[2016-06-17 07:08] LABS: INR 1.2 (0.9-1.1); PARTIAL THROMBOPLASTIN RATIO 1.3; PROTHROMBIN TIME (PATIENT) 13.4 SECONDS (9.0-12.0)
[2016-06-17 08:03] VITALS: BP 158/66; PULSE 53; TEMP 36.5; O2SAT 94
--- NOTE | 2016-06-17 08:16 | Progress Note ---
Subjective Date of Service: June 17, 2016. Subjective Pt evaluation today including: conversation w/ patient, chart review, lab review, review of studies patient seen at bedside this am, feeling some stomach upset, no right foot pain , did have some left foot pain indicated Problem List Medical Problems: (1) Cellulitis of right foot Status: Acute (2) Sepsis Status: Acute Objective Vital Signs Date Time Temp Pulse Resp B/P Pulse Ox O2 Delivery O2 Flow Rate FiO2 06/17/16 06:24 65 114/54 06/17/16 04:00 65 173/74 97 Room Air 06/16/16 23:35 Room Air 06/16/16 23:26 36.5 67 20 174/76 92 Room Air 06/16/16 20:30 Room Air 06/16/16 20:28 63 181/74 06/16/16 16:05 141/87 149/77 06/16/16 15:02 36.7 55 16 171/62 95 Room Air 06/16/16 12:15 55 130/60 06/16/16 12:02 36.5 50 131/44 06/16/16 12:00 55 140/60 06/16/16 11:45 55 125/67 06/16/16 11:30 57 132/52 06/16/16 11:15 55 156/67 06/16/16 11:00 57 144/63 06/16/16 10:45 51 138/74 06/16/16 10:30 67 131/67 06/16/16 10:15 54 127/58 06/16/16 10:00 53 134/64 06/16/16 09:45 52 122/57 06/16/16 09:30 53 130/60 06/16/16 09:15 51 122/52 06/16/16 09:00 55 117/49 06/16/16 08:45 50 122/51 06/16/16 08:35 54 121/57 06/16/16 08:15 36.6 55 136/59 Physical Exam Skin: + pertinent finding (right foot dressing change today, submetataral 5 ulcer with no opening, denuded and will need debrided once discharged, otherwise ulcer is improved, there is a lateral incision present that has an opening measuring about 1x1x.4cm that now has aquacell wicked into the area - this will require continued wound care, overall swelling and erythema has improved) Laboratory Results Last 24 Hours Test 06/16/16 11:11 06/16/16 11:32 06/16/16 12:01 06/16/16 16:58 Bedside Glucose 58 mg/dl 63 mg/dl 92 mg/dl 104 mg/dl Test 06/16/16 20:30 06/17/16 06:09 Bedside Glucose 129 mg/dl Prothrombin Time 13.4 SECONDS Prothromb Time International Ratio 1.2 Activated Partial Thromboplast Time 33.6 SECONDS Partial Thromboplastin Ratio 1.3 Assessment and Plan 1. right foot POD 14- I and D, 5th metatarsal head resection, ulcer debridement , dressing change today with aquacell and gauze, recommend wound care, post xrays stable and show 5th metatarsal head resection; continue to elevate right foot with pillow and recommend partial weightbearing at this time time, appreciate ID recs, pathology stating acute osteomyelitis right 5th metatarsal head, overall the foot is greatly improved, from a podiatry stand point patient is stable for d/c, no further surgical dbridements are planned, will recommend to continue wound care to the area, patient will need f/u with me placed post d/ c from a surgical stand point. Discharge planning: uncertain
--- NOTE | 2016-06-17 08:33 | Progress Note ---
Subjective Date of Service: June 16, 2016. Subjective Pt evaluation today including: conversation w/ patient, physical exam, lab review, conversation w/ [employer] business [employer] consultant, review of inpatient medication list Pain: controlled with Percocet PO Intake: poor Voiding: no voiding problems complains about Percocet, makes his stomach upset, controls pain though discussed starting Coumadin, he is on board tolerated HD today try for d/c tomorrow Problem List Medical Problems: (1) Cellulitis of right foot Status: Acute (2) Sepsis Status: Acute Review of Systems Constitutional: + fatigue, + weakness Abdomen: + problem reported (poor appetite) All Other Systems: Reviewed and Negative Medications Current Inpatient Medications Medications (Trade) Dose Ordered Sig/Eliseo Route Start Time Stop Time Status Last Admin Dose Admin Polyethylene (Miralax Powder Packet) 17 gm DAILY PO 06/03/16 08:00 07/03/16 08:59 06/14/16 14:49 17 GM Allopurinol (Zyloprim Tab) 100 mg HS PO 06/02/16 21:00 07/02/16 20:59 06/15/16 22:22 100 MG Aspirin (Ecotrin Tab) 81 mg QAM PO 06/03/16 08:00 07/03/16 08:59 Future hold 06/16/16 07:16 81 MG Atorvastatin Calcium (Lipitor Tab) 20 mg DAILY PO 06/03/16 08:00 07/03/16 08:59 06/16/16 07:16 20 MG Calcium Acetate (Phoslo Cap) 667 mg TIDM PO 06/02/16 17:00 07/02/16 16:59 06/16/16 07:16 667 MG Furosemide (Lasix Tab) 40 mg DAILY PO 06/03/16 08:00 07/03/16 08:59 06/16/16 07:16 40 MG Ipratropium [place] (Atrovent Hfa Inhaler) 2 puffs QID PRN INH 06/02/16 12:30 07/02/16 12:29 Albuterol/ Ipratropium (Duoneb) 3 ml Q4H PRN INH 06/02/16 12:30 07/02/16 12:29 06/09/16 22:49 3 ML Meclizine HCl (Antivert Tab) 25 mg Q4H PRN PO 06/02/16 12:30 07/02/16 12:29 Tamsulosin HCl (Flomax Cap) 0.4 mg HS PO 06/02/16 21:00 07/02/16 20:59 06/15/16 22:20 0.4 MG Cholecalciferol (Vitamin D Tab) 2,000 inter.unit QAM PO 06/03/16 08:00 07/03/16 08:59 06/16/16 07:17 2,000 INTER.UNIT Ranitidine HCl (zANTac TAB) 300 mg QAM PO 06/03/16 08:00 07/03/16 08:59 06/16/16 07:17 300 MG Vancomycin HCl (Consult) 1 ea UD PRN N/A 06/02/16 15:00 07/02/16 14:59 Glucose (Glucose 40% Gel) 15-30 GRAMS 15 GRAMS... UD PRN PO 06/02/16 17:00 07/02/16 16:59 06/14/16 07:02 15 GM Glucose (Glucose Chew Tab) 4-8 Tablets 4 Tabl... UD PRN PO 06/02/16 17:00 07/02/16 16:59 06/16/16 06:07 4 TABS Dextrose (Dextrose 50% 50ML Syringe) 25-50ML OF 50% DW IV FOR... UD PRN IV 06/02/16 17:00 07/02/16 16:59 06/12/16 06:53 50 ML Glucagon (Glucagon Inj) 1 mg UD PRN SQ 06/02/16 17:00 07/02/16 16:59 Acetaminophen (Tylenol Tab) 650 mg Q4H PRN PO 06/03/16 14:30 07/03/16 14:29 06/07/16 10:52 650 MG Al Hydrox/Mg Hydrox/Simethicone (Maalox Max Susp) 15 ml Q4H PRN PO 06/03/16 14:30 07/03/16 14:29 06/09/16 23:46 15 ML Magnesium Hydroxide (Milk Of Magnesia Susp) 30 ml Q12H PRN PO 06/03/16 14:30 07/03/16 14:29 Ondansetron HCl (Zofran Inj) 4 mg Q6H PRN IV 06/03/16 14:30 07/03/16 14:29 06/05/16 15:11 4 MG Oxycodone/ Acetaminophen (Percocet 5-325mg Tab) 2 tab Q4H PRN PO 06/03/16 14:30 06/17/16 14:29 06/13/16 00:02 2 TAB Metoclopramide HCl (Reglan Inj) 5 mg Q6H PRN IV 06/03/16 14:30 07/03/16 14:29 06/05/16 17:22 5 MG Trazodone HCl (Desyrel Tab) 100 mg HS PO 06/05/16 21:00 07/05/16 20:59 06/15/16 22:16 100 MG Chlordiazepoxide (Librium Cap) 10 mg BID PO 06/06/16 09:00 07/06/16 08:59 06/16/16 07:23 10 MG Trazodone HCl (Desyrel Tab) 25 mg HS PO 06/05/16 21:00 07/05/16 20:59 06/15/16 22:17 25 MG Metoprolol Succinate 75 mg 75 mg QAM PO 06/08/16 09:00 07/08/16 08:59 06/15/16 05:40 75 MG Heparin Sodium/ Dextrose (Heparin 25,000 Unit/500ml D5W) 500 ml @ 37 mls/hr [id number] PRN IV 06/08/16 15:05 07/08/16 15:04 Future hold 06/16/16 07:04 37 MLS/HR Nitroglycerin (Nitrostat Tab) 0.4 mg PRN PRN SL 06/10/16 00:15 07/10/16 00:14 06/10/16 00:22 0.4 MG Lisinopril (Zestril Tab) 40 mg QAM PO 06/10/16 12:00 07/10/16 11:59 06/16/16 07:17 40 MG Amlodipine Besylate (Norvasc Tab) 10 mg QAM PO 06/12/16 09:00 07/12/16 08:59 06/16/16 07:16 10 MG Morphine Sulfate (MoRPHine SULFATE INJ) 2 mg Q3H PRN IV 06/13/16 15:45 06/27/16 15:44 06/15/16 16:10 2 MG Insulin Aspart (novoLOG ASPART) SLIDING SCALE If C... ACHS SC 06/14/16 18:00 07/14/16 17:59 06/15/16 22:19 1 UNITS Metoprolol Succinate (Toprol Xl Tab) 50 mg PM PO 06/15/16 21:00 07/15/16 20:59 06/15/16 22:21 50 MG Metronidazole (Flagyl Tab) 500 mg BID PO 06/15/16 12:00 07/27/16 11:59 06/16/16 07:15 500 MG Enteral Nutritional Formula 1 can 1 can DAILY PO 06/16/16 09:00 07/16/16 08:59 Vancomycin HCl/ Sodium Chloride (Vancomycin Inj/ Nss 250ml) 265 ml @ 125 mls/hr TODAY@1600 IV 06/16/16 16:00 06/16/16 23:59 06/16/16 15:25 125 MLS/HR Epoetin Vini (Procrit Inj) 10,000 units TODAY@1200 IV 06/16/16 12:00 06/16/16 18:00 Miscellaneous Information (Consult Glycemic Management Pharmacy) 1 ea UD PRN N/A 06/16/16 14:03 07/16/16 14:02 Oxycodone/ Acetaminophen (Percocet 5-325mg Tab) 2 tab Q4H PRN PO 06/16/16 14:00 06/30/16 13:59 Objective Vital Signs Date Time Temp Pulse Resp B/P Pulse Ox O2 Delivery O2 Flow Rate FiO2 06/16/16 16:05 141/87 149/77 06/16/16 15:02 36.7 55 16 171/62 95 Room Air 06/16/16 12:15 55 130/60 06/16/16 12:02 36.5 50 131/44 06/16/16 12:00 55 140/60 06/16/16 11:45 55 125/67 06/16/16 11:30 57 132/52 06/16/16 11:15 55 156/67 06/16/16 11:00 57 144/63 06/16/16 10:45 51 138/74 06/16/16 10:30 67 131/67 06/16/16 10:15 54 127/58 06/16/16 10:00 53 134/64 06/16/16 09:45 52 122/57 5/3/17 09:30 53 130/60 06/16/16 09:15 51 122/52 06/16/16 09:00 55 117/49 06/16/16 08:45 50 122/51 06/16/16 08:35 54 121/57 06/16/16 08:15 36.6 55 136/59 06/16/16 07:10 Room Air 06/16/16 06:30 36.7 54 16 116/64 95 Room Air 06/15/16 23:30 94 Room Air 06/15/16 22:57 36.7 66 16 162/75 94 Room Air Physical Exam General Appearance: WD/WN, no apparent distress Neck: supple, no adenopathy, no JVD, trachea midline Respiratory/Chest: chest non-tender, lungs clear, normal breath sounds, no respiratory distress, no accessory muscle use Cardiovascular: regular rate, rhythm, no edema, no gallop, no JVD, no murmur Abdomen: normal bowel sounds, non tender, soft, no organomegaly Neurologic/Psychiatric: heat 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 II-XII 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 as tested, no motor/sensory deficits, alert, normal mood/affect, oriented x 3 Skin: normal color, warm/dry, no rash Laboratory Results Last 24 Hours Test 06/15/16 17:02 06/15/16 20:14 06/16/16 05:50 06/16/16 06:04 Bedside Glucose 158 mg/dl 181 mg/dl 55 mg/dl White Blood Count 9.67 K/uL Red Blood Count 3.02 M/uL Hemoglobin 8.8 g/dL Hematocrit 26.6 % Mean Corpuscular Volume 88.1 fL Mean Corpuscular Hemoglobin 29.1 pg Mean Corpuscular Hemoglobin Concent 33.1 g/dl RDW Standard Deviation 51.5 fL RDW Coefficient of Variation 16.1 % Platelet Count 302 K/uL Mean Platelet Volume 8.2 fL Activated Partial Thromboplast Time 55.8 SECONDS Partial Thromboplastin Ratio 2.1 Sodium Level 133 mmol/L Potassium Level 4.3 mmol/L Chloride Level 96 mmol/L Carbon Dioxide Level 24 mmol/L Anion Gap 13.0 mmol/L Blood Urea Nitrogen 37 mg/dl Creatinine 8.10 mg/dl Est Creatinine Clear Calc Drug Dose 10.6 ml/min Estimated GFR () 6.8 Estimated GFR (Non- 5.9 BUN/Creatinine Ratio 4.5 Random Glucose 50 mg/dl Calcium Level 9.2 mg/dl Phosphorus Level 8.5 mg/dl Albumin 2.0 gm/dl Random Vancomycin Level 15.8 mcg/ml Test 06/16/16 06:29 06/16/16 06:43 06/16/16 07:14 06/16/16 11:11 Bedside Glucose 61 mg/dl 65 mg/dl 80 mg/dl 58 mg/dl Test 06/16/16 11:32 06/16/16 12:01 Bedside Glucose 63 mg/dl 92 mg/dl Assessment and Plan RIGHT DIABETIC FOOT INFECTION Growing MSSA, enterococcus, Bacteroides Surgical debridement 06/03 Wound care following Per ID note, recommend one more week of Vancomycin and PO Flagyl can get Vancomycin after HD, need to determine specific dose, will d/w pharmacy Continue to follow wound care post discharge prefers [place] to Percocet, will change ATRIAL FIBRILLATION Currently in normal sinus rhythm which is rate controlled stop heparin gtt since in NSR, start Coumadin on 06/16 Continue metoprolol succinate, HR in the 50-60's HYPOXIA History of tobacco abuse 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 Chest x-ray and CT chest show probable right lower lobe pneumonia treated adequately with Zosyn and Azithromycin breathing well, no further treatment needed DIABETES MELLITUS Continue levemir and sliding scale insulin with NovoLog Patient reports that he is slowly increasing his dietary intake hypoglycemia while here due to poor intake, says he eats more at home consult pharmacy to adjust insulin and try to prevent hypoglycemia difficult situation with him likely eating more when he goes home will be eating more carbs END-STAGE RENAL DISEASE Scheduled hemodialysis Tuesday Nephrology consulted Appreciate Dr. Hardin's input fistulogram on 06/14 tolerated HD on 06/16 ANEMIA Hemoglobin currently 8.8, no signs of bleeding Anemia of chronic disease Epogen per renal HYPERTENSION well controlled on Toprol, lisinopril, Norvasc, Lasix DEPRESSION/ANXIETY Continue Librium and Seroquel Good pain control needed GI PROPHYLAXIS Continue Zantac DVT PROPHYLAXIS stopped heparin gtt Limited ambulation secondary to right foot surgery started on Coumadin Plan: try to d/c home finally on 06/17 on Coumadin, Vancomycin IV with hemodialysis close follow up with podiatry, wound clinic, home nursing Discharge planning: uncertain
[2016-06-17 08:53] LABS: ESTIMATED AVERAGE GLUCOSE 157 mg/dl; HA1C FLAG Normal (Normal)
[2016-06-17] MEDS: BOOST GLUCOSE CONTROL PO SCH (09:00)
[2016-06-17] MEDS: POLYETHYLENE (MIRALAX) 17 GM PACK PO SCH (09:00)
[2016-06-17] MEDS: RANITIDINE HCL 150 MG TAB PO SCH (09:28)
[2016-06-17] MEDS: CHOLECALCIFEROL 1000 INTER.UNIT TAB PO SCH (09:28)
[2016-06-17] MEDS: METOPROLOL SUCC 25MG EXT REL TAB PO SCH (09:28)
[2016-06-17] MEDS: LISINOPRIL 40 MG TAB PO SCH (09:28)
[2016-06-17] MEDS: CHLORDIAZEPOXIDE 10 MG CAP PO SCH ×2 (09:29→21:54)
[2016-06-17] MEDS: CALCIUM ACETATE 667MG GELCAP PO SCH ×3 (09:29→19:28)
[2016-06-17] MEDS: METRONIDAZOLE 500 MG TAB PO SCH ×2 (09:29→21:53)
[2016-06-17] MEDS: ASPIRIN 81 MG ECTAB PO SCH (09:29)
[2016-06-17] MEDS: AMLODIPINE BESYLATE 5 MG TAB PO SCH (09:29)
[2016-06-17] MEDS: FUROSEMIDE 40 MG TAB PO SCH (09:29)
[2016-06-17] MEDS: ATORVASTATIN 20 MG TAB PO SCH (09:29)
[2016-06-17] MEDS: INSULIN ASPART 100 UNITS/ML 3 ML PEN SC SCH ×4 (09:36→22:11)
--- NOTE | 2016-06-17 09:49 | Nephrology Progress Note ---
Nephrology Progress Note Date of Service June 17, 2016. Chief Complaint ESRD Subjective No acute events overnight. Mr. Carmichael tolerated HD yesterday without complications. He admitted to several concerns this morning. He describes increasing scrotum discomfort for the past 3 days. There is notable tenderness of the left testicle. He reports some swelling of the scrotum today. No erythema. No fevers or chills. He denies any injury. Within the past 1-2 days , he has also started to experience increasing discomfort in the left side of his abdomen. Symptoms originated in the left upper quadrant with mild tenderness. He felt that it may have been related to medications. The discomfort and tenderness is now predominately in the left lower quadrant. He denies significant suprapubic discomfort. He does state that urine output has been reduced. He reports hesitancy. He has to strain to empty his bladder. He denies dysuria or hematuria. He reports some constipation. Review of Systems A complete review of systems was performed. Pertinent positives are noted above. All other systems are negative. Vital Signs Last 8 Hrs Date Time Temp Pulse Resp B/P Pulse Ox O2 Delivery O2 Flow Rate FiO2 06/17/16 08:03 36.5 53 16 158/66 94 Room Air 06/17/16 06:24 65 114/54 06/17/16 04:00 65 173/74 97 Room Air I & O 24-Hour Column 06/17/16 07:59 Intake Total 751 ml Output Total 2850 ml Balance -2099 ml Last Recorded Weight Weight (Kilograms): 114.300 Physical Exam General Appearance: WD/WN, no apparent distress Head: normocephalic, atraumatic Eyes: normal inspection, sclerae normal ENT: normal ENT inspection, pharynx normal Neck: supple, no JVD Respiratory/Chest: lungs clear, no respiratory distress, no accessory muscle use Cardiovascular: regular rate, rhythm, no murmur Back: no CVA tenderness Abdomen/GI: soft, + tenderness (left sided, mild; no rebound or guarding) Genitourinary - Male: normal testicles, + pertinent finding (left testicle is tender but firm and without nodularity, there does not appear to be any swelling or erythema to my exam) Extremities/Musculoskelatal: normal inspection, + pedal edema, + pertinent finding (AVF with thrill and bruit) Neurologic/Psych: alert, oriented x 3 Family History FH: diabetes mellitus AUNT FH: stroke GRANDMOTHER Negative for CKD / ESRD Social History Smoking Status: Unknown if ever smoked Drug Use: none Marital Status: Housing Status: lives with family Occupation: retired . Retired. Former smoker (2ppd x 45 years, quit 2002) Laboratory Results Past 24 Hours Test 06/16/16 11:11 06/16/16 11:32 06/16/16 12:01 06/16/16 16:58 Bedside Glucose 58 mg/dl (70-99) 63 mg/dl (70-99) 92 mg/dl (70-99) 104 mg/dl (70-99) Test 06/16/16 20:30 06/17/16 06:09 Bedside Glucose 129 mg/dl (70-99) Prothrombin Time 13.4 SECONDS (9.0-12.0) Prothromb Time International Ratio 1.2 (0.9-1.1) Activated Partial Thromboplast Time 33.6 SECONDS (21.0-31.0) Partial Thromboplastin Ratio 1.3 Estimated Average Glucose 157 mg/dl Hemoglobin A1c 7.1 % (4.5-5.6) Allergies Coded Allergies: No Known Allergies (Verified , 06/02/16) Medications Current Inpatient Medications Medications (Trade) Dose Ordered Sig/Eliseo Route Start Time Stop Time Status Last Admin Dose Admin Polyethylene (Miralax Powder Packet) 17 gm DAILY PO 06/03/16 08:00 07/03/16 08:59 06/14/16 14:49 17 GM Allopurinol (Zyloprim Tab) 100 mg HS PO 06/02/16 21:00 07/02/16 20:59 06/16/16 20:34 100 MG Aspirin (Ecotrin Tab) 81 mg QAM PO 06/03/16 08:00 07/03/16 08:59 Future hold 06/16/16 07:16 81 MG Atorvastatin Calcium (Lipitor Tab) 20 mg DAILY PO 06/03/16 08:00 07/03/16 08:59 06/16/16 07:16 20 MG Calcium Acetate (Phoslo Cap) 667 mg TIDM PO 06/02/16 17:00 07/02/16 16:59 06/16/16 17:37 667 MG Furosemide (Lasix Tab) 40 mg DAILY PO 06/03/16 08:00 07/03/16 08:59 06/16/16 07:16 40 MG Ipratropium [place] (Atrovent Hfa Inhaler) 2 puffs QID PRN INH 06/02/16 12:30 07/02/16 12:29 Albuterol/ Ipratropium (Duoneb) 3 ml Q4H PRN INH 06/02/16 12:30 07/02/16 12:29 06/09/16 22:49 3 ML Meclizine HCl (Antivert Tab) 25 mg Q4H PRN PO 06/02/16 12:30 07/02/16 12:29 Tamsulosin HCl (Flomax Cap) 0.4 mg HS PO 06/02/16 21:00 07/02/16 20:59 06/16/16 20:33 0.4 MG Cholecalciferol (Vitamin D Tab) 2,000 inter.unit QAM PO 06/03/16 08:00 07/03/16 08:59 06/16/16 07:17 2,000 INTER.UNIT Ranitidine HCl (zANTac TAB) 300 mg QAM PO 06/03/16 08:00 07/03/16 08:59 06/16/16 07:17 300 MG Vancomycin HCl (Consult) 1 ea UD PRN N/A 06/02/16 15:00 07/02/16 14:59 Glucose (Glucose 40% Gel) 15-30 GRAMS 15 GRAMS... UD PRN PO 06/02/16 17:00 07/02/16 16:59 06/14/16 07:02 15 GM Glucose (Glucose Chew Tab) 4-8 Tablets 4 Tabl... UD PRN PO 06/02/16 17:00 07/02/16 16:59 06/16/16 06:07 4 TABS Dextrose (Dextrose 50% 50ML Syringe) 25-50ML OF 50% DW IV FOR... UD PRN IV 06/02/16 17:00 07/02/16 16:59 06/12/16 06:53 50 ML Glucagon (Glucagon Inj) 1 mg UD PRN SQ 06/02/16 17:00 07/02/16 16:59 Acetaminophen (Tylenol Tab) 650 mg Q4H PRN PO 06/03/16 14:30 07/03/16 14:29 06/07/16 10:52 650 MG Al Hydrox/Mg Hydrox/Simethicone (Maalox Max Susp) 15 ml Q4H PRN PO 06/03/16 14:30 07/03/16 14:29 06/09/16 23:46 15 ML Magnesium Hydroxide (Milk Of Magnesia Susp) 30 ml Q12H PRN PO 06/03/16 14:30 07/03/16 14:29 Ondansetron HCl (Zofran Inj) 4 mg Q6H PRN IV 06/03/16 14:30 07/03/16 14:29 06/05/16 15:11 4 MG Metoclopramide HCl (Reglan Inj) 5 mg Q6H PRN IV 06/03/16 14:30 07/03/16 14:29 06/05/16 17:22 5 MG Trazodone HCl (Desyrel Tab) 100 mg HS PO 06/05/16 21:00 07/05/16 20:59 06/16/16 20:32 100 MG Chlordiazepoxide (Librium Cap) 10 mg BID PO 06/06/16 09:00 07/06/16 08:59 06/16/16 20:31 10 MG Trazodone HCl (Desyrel Tab) 25 mg HS PO 06/05/16 21:00 07/05/16 20:59 06/16/16 20:32 25 MG Metoprolol Succinate (Toprol Xl Tab) 75 mg QAM PO 06/08/16 09:00 07/08/16 08:59 06/15/16 05:40 75 MG Nitroglycerin (Nitrostat Tab) 0.4 mg PRN PRN SL 06/10/16 00:15 07/10/16 00:14 06/10/16 00:22 0.4 MG Lisinopril (Zestril Tab) 40 mg QAM PO 06/10/16 12:00 07/10/16 11:59 06/16/16 07:17 40 MG Amlodipine Besylate (Norvasc Tab) 10 mg QAM PO 06/12/16 09:00 07/12/16 08:59 06/16/16 07:16 10 MG Morphine Sulfate (MoRPHine SULFATE INJ) 2 mg Q3H PRN IV 06/13/16 15:45 06/27/16 15:44 06/15/16 16:10 2 MG Insulin Aspart (novoLOG ASPART) SLIDING SCALE If C... ACHS SC 06/14/16 18:00 07/14/16 17:59 06/15/16 22:19 1 UNITS Metoprolol Succinate (Toprol Xl Tab) 50 mg PM PO 06/15/16 21:00 07/15/16 20:59 06/16/16 20:34 50 MG Metronidazole (Flagyl Tab) 500 mg BID PO 06/15/16 12:00 07/27/16 11:59 06/16/16 20:32 500 MG Enteral Nutritional Formula (Boost Glucose Control) 1 can DAILY PO 06/16/16 09:00 07/16/16 08:59 Miscellaneous Information (Consult Glycemic Management Pharmacy) 1 ea UD PRN N/A 06/16/16 14:03 07/16/16 14:02 Acetaminophen/ Hydrocodone Bitart ([place] 5/325 Tab) 1 tab Q6 PRN PO 06/16/16 16:45 06/30/16 16:44 06/17/16 03:58 1 TAB Acetaminophen/ Hydrocodone Bitart ([place] 5/325 Tab) 2 tab Q6 PRN PO 06/16/16 16:45 06/30/16 16:44 Impression (1) End-stage renal disease on hemodialysis (2) Cellulitis of right foot (3) Sepsis (4) Monoclonal gammopathy (5) Diabetes mellitus, type II Bre is a 75-year-old male with end-stage renal disease on hemodialysis. Medical history notable for hypertension, diabetes mellitus, MGUS. He was admitted to the hospital with nausea and vomiting as well as a right lower extremity infected diabetic ulcer with osteomyelitis and abscesses. Drainage as well as 5th metatarsal head amputation was performed without complications. Wound culture grew MSSA and gram negative and blood culture was negative. 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 Fistulogram was performed on 06/14/16. CTA chest was negative for PE but did reveal right sided pneumonia. He was subsequently diagnosed with new a flutter and started on anticoagulation. This morning, he is experiencing testicular pain as well as urinary symptoms and some abdominal discomfort. Symptoms are suggestive of prostatitis. Urine studies have been requested. I did not generate a cremasteric reflex. I would consider an epididymitis. Given recent antibiotics, possibly non infectious. I ordered a scrotal UA/duplex to help exclude a more serious condition. Recommendations -- HD MWF, UF goal 3 kg -- UA/micro + culture; scrotal US -- Epogen 70049 IU QHD -- Renal diet
--- NOTE | 2016-06-17 10:48 | Infectious Disease Progress Nt ---
Progress Note Date of Service June 17, 2016. Subjective Pt evaluation today including: conversation w/ patient, physical exam, chart review, lab review, review of studies, conversation w/ data quality consultant, review of inpatient medication list WBC count yesterday was down to 9.67. The patient states that he continues to feel "crappy". His Hgb continues to be mildly low but improving at 8.8. He is tolerating his abx well. He no longer has loose stools since change from IV Zosyn to PO Flagyl. I discussed this patient with Dr. Pfeiffer- will extend abx until patient can be re-evaluated at the wound care center next week by Dr. Ellis or Dr. Nova. All Other Systems: Reviewed and Negative Medications Current Inpatient Medications Medications (Trade) Dose Ordered Sig/Eliseo Route Start Time Stop Time Status Last Admin Dose Admin Polyethylene (Miralax Powder Packet) 17 gm DAILY PO 06/03/16 08:00 07/03/16 08:59 06/14/16 14:49 17 GM Allopurinol (Zyloprim Tab) 100 mg HS PO 06/02/16 21:00 07/02/16 20:59 06/16/16 20:34 100 MG Aspirin (Ecotrin Tab) 81 mg QAM PO 06/03/16 08:00 07/03/16 08:59 Future hold 06/17/16 09:29 81 MG Atorvastatin Calcium (Lipitor Tab) 20 mg DAILY PO 06/03/16 08:00 07/03/16 08:59 06/17/16 09:29 20 MG Calcium Acetate (Phoslo Cap) 667 mg TIDM PO 06/02/16 17:00 07/02/16 16:59 06/17/16 09:29 667 MG Furosemide (Lasix Tab) 40 mg DAILY PO 06/03/16 08:00 07/03/16 08:59 06/17/16 09:29 40 MG Ipratropium [place] (Atrovent Hfa Inhaler) 2 puffs QID PRN INH 06/02/16 12:30 07/02/16 12:29 Albuterol/ Ipratropium (Duoneb) 3 ml Q4H PRN INH 06/02/16 12:30 07/02/16 12:29 06/09/16 22:49 3 ML Meclizine HCl (Antivert Tab) 25 mg Q4H PRN PO 06/02/16 12:30 07/02/16 12:29 Tamsulosin HCl (Flomax Cap) 0.4 mg HS PO 06/02/16 21:00 07/02/16 20:59 06/16/16 20:33 0.4 MG Cholecalciferol (Vitamin D Tab) 2,000 inter.unit QAM PO 06/03/16 08:00 07/03/16 08:59 06/17/16 09:28 2,000 INTER.UNIT Ranitidine HCl (zANTac TAB) 300 mg QAM PO 06/03/16 08:00 07/03/16 08:59 06/17/16 09:28 300 MG Vancomycin HCl (Consult) 1 ea UD PRN N/A 06/02/16 15:00 07/02/16 14:59 Glucose (Glucose 40% Gel) 15-30 GRAMS 15 GRAMS... UD PRN PO 06/02/16 17:00 07/02/16 16:59 06/14/16 07:02 15 GM Glucose (Glucose Chew Tab) 4-8 Tablets 4 Tabl... UD PRN PO 06/02/16 17:00 07/02/16 16:59 06/16/16 06:07 4 TABS Dextrose (Dextrose 50% 50ML Syringe) 25-50ML OF 50% DW IV FOR... UD PRN IV 06/02/16 17:00 07/02/16 16:59 06/12/16 06:53 50 ML Glucagon (Glucagon Inj) 1 mg UD PRN SQ 06/02/16 17:00 07/02/16 16:59 Acetaminophen (Tylenol Tab) 650 mg Q4H PRN PO 06/03/16 14:30 07/03/16 14:29 06/07/16 10:52 650 MG Al Hydrox/Mg Hydrox/Simethicone (Maalox Max Susp) 15 ml Q4H PRN PO 06/03/16 14:30 07/03/16 14:29 06/09/16 23:46 15 ML Magnesium Hydroxide (Milk Of Magnesia Susp) 30 ml Q12H PRN PO 06/03/16 14:30 07/03/16 14:29 Ondansetron HCl (Zofran Inj) 4 mg Q6H PRN IV 06/03/16 14:30 07/03/16 14:29 06/05/16 15:11 4 MG Metoclopramide HCl (Reglan Inj) 5 mg Q6H PRN IV 06/03/16 14:30 07/03/16 14:29 06/05/16 17:22 5 MG Trazodone HCl (Desyrel Tab) 100 mg HS PO 06/05/16 21:00 07/05/16 20:59 06/16/16 20:32 100 MG Chlordiazepoxide (Librium Cap) 10 mg BID PO 06/06/16 09:00 07/06/16 08:59 06/17/16 09:29 10 MG Trazodone HCl (Desyrel Tab) 25 mg HS PO 06/05/16 21:00 07/05/16 20:59 06/16/16 20:32 25 MG Metoprolol Succinate (Toprol Xl Tab) 75 mg QAM PO 06/08/16 09:00 07/08/16 08:59 06/17/16 09:28 75 MG Nitroglycerin (Nitrostat Tab) 0.4 mg PRN PRN SL 06/10/16 00:15 07/10/16 00:14 06/10/16 00:22 0.4 MG Lisinopril (Zestril Tab) 40 mg QAM PO 06/10/16 12:00 07/10/16 11:59 06/17/16 09:28 40 MG Amlodipine Besylate (Norvasc Tab) 10 mg QAM PO 06/12/16 09:00 07/12/16 08:59 06/17/16 09:29 10 MG Morphine Sulfate (MoRPHine SULFATE INJ) 2 mg Q3H PRN IV 06/13/16 15:45 06/27/16 15:44 06/15/16 16:10 2 MG Insulin Aspart (novoLOG ASPART) SLIDING SCALE If C... ACHS SC 06/14/16 18:00 07/14/16 17:59 06/17/16 09:36 2 UNITS Metoprolol Succinate (Toprol Xl Tab) 50 mg PM PO 06/15/16 21:00 07/15/16 20:59 06/16/16 20:34 50 MG Metronidazole (Flagyl Tab) 500 mg BID PO 06/15/16 12:00 07/27/16 11:59 06/17/16 09:29 500 MG Enteral Nutritional Formula (Boost Glucose Control) 1 can DAILY PO 06/16/16 09:00 07/16/16 08:59 Miscellaneous Information (Consult Glycemic Management Pharmacy) 1 ea UD PRN N/A 06/16/16 14:03 07/16/16 14:02 Acetaminophen/ Hydrocodone Bitart ([place] 5/325 Tab) 1 tab Q6 PRN PO 06/16/16 16:45 06/30/16 16:44 06/17/16 03:58 1 TAB Acetaminophen/ Hydrocodone Bitart ([place] 5/325 Tab) 2 tab Q6 PRN PO 06/16/16 16:45 06/30/16 16:44 Objective Vital Signs Date Time Temp Pulse Resp B/P Pulse Ox O2 Delivery O2 Flow Rate FiO2 06/17/16 08:03 36.5 53 16 158/66 94 Room Air 06/17/16 06:24 65 114/54 06/17/16 04:00 65 173/74 97 Room Air 06/16/16 23:35 Room Air 06/16/16 23:26 36.5 67 20 174/76 92 Room Air 06/16/16 20:30 Room Air 06/16/16 20:28 63 181/74 06/16/16 16:05 141/87 149/77 06/16/16 15:02 36.7 55 16 171/62 95 Room Air 06/16/16 12:15 55 130/60 06/16/16 12:02 36.5 50 131/44 06/16/16 12:00 55 140/60 06/16/16 11:45 55 125/67 06/16/16 11:30 57 132/52 06/16/16 11:15 55 156/67 06/16/16 11:00 57 144/63 06/16/16 10:45 51 138/74 Physical Exam General Appearance: no apparent distress, + obese Eyes: normal inspection, sclerae normal ENT: hearing grossly normal Neck: supple, trachea midline Respiratory/Chest: no respiratory distress, no accessory muscle use Cardiovascular: regular rate, rhythm Extremities: + pertinent finding (1+ pitting edema right lower extremity. Clean dressing in place) Neurologic/Psychiatric: alert, normal mood/affect Skin: normal color, warm/dry, no rash Laboratory Results Last 24 Hours Test 06/16/16 11:11 06/16/16 11:32 06/16/16 12:01 06/16/16 16:58 Bedside Glucose 58 mg/dl 63 mg/dl 92 mg/dl 104 mg/dl Test 06/16/16 20:30 06/17/16 06:09 Bedside Glucose 129 mg/dl Prothrombin Time 13.4 SECONDS Prothromb Time International Ratio 1.2 Activated Partial Thromboplast Time 33.6 SECONDS Partial Thromboplastin Ratio 1.3 Estimated Average Glucose 157 mg/dl Hemoglobin A1c 7.1 % Assessment and Plan Patient with right 5th distal metatarsal abscess and osteomyelitis with chronic overlying ulceration. Wound culture grew MSSA, Enterococcus, and Bacteroides. He is currently only on PO Flagyl and IV Vancomycin. Will continue IV Vancomycin with dialysis and PO Flagyl until the patient can follow up with wound center and ID next week at the wound care center. Otherwise, he is OK for D/C from ID perspective. PROVIDER ADDENDUM: Patient reviewed with Ms. Linder. Agree with above assessment.
--- NOTE | 2016-06-17 11:20 | Pharmacy Progress Note ---
Glycemic Control: Progress Nt Date of Service June 17, 2016. Scope Glycemic Pharmacist consulted by Dr Pfeiffer on 06/16/16 for glycemic control and to write orders per [facility] inpatient glycemic control protocol. Objective Accuchecks BSG (last 24hrs): Test 06/16/16 11:11 06/16/16 11:32 06/16/16 12:01 06/16/16 16:58 Bedside Glucose 58 mg/dl (70-99) 63 mg/dl (70-99) 92 mg/dl (70-99) 104 mg/dl (70-99) Test 06/16/16 20:30 Bedside Glucose 129 mg/dl (70-99) Laboratory Data (last 24hrs) Test 06/17/16 06:09 Hemoglobin A1c 7.1 % HbA1c: Test 06/17/16 06:09 Hemoglobin A1c 7.1 % (4.5-5.6) H Recent Pertinent Medications Outpatient Anti-diabetic Regimen: * Levemir 80 units qHS; Novolog 60 units twice daily * A1c = 7.7 % 11/2015 The patient is currently receiving: * Basal insulin: Levemir on hold * Correctional Insulin: Novolog Correction per scale ACHS Goal Range: Low 110 mg/dL - High 160 mg/dL Correction Factor: 30 mg/dL/unit * Prandial insulin: Per carb ratio of 1 unit per 10 grams CHO consumed Risk Factors for Insulin Resistance: * Infection * IVF * Recent Surgery * Diet Risk Factors of Insulin Sensitivity: * ESRD Assessment & Plan ASSESSMENT: * 75 yo T2D M with ESRD on dialysis MWF, admitted on 06/02/16 with osteomyelitis and subsequently underwent an amputation on 06/03/2016. He has been hospitalized since receiving Zosyn and vancomycin for the infection. * Pharmacy consulted 06/16/16 due to frequent severe hypoglycemic episodes * Lantus was held and bolus insulin loosened slightly * Patient has received 0 units over the past 24 hours, but on further review, this seems like a pattern * Prior to consult, patient would receive ~85-90 units of insulin one day, then hypoglycemia X 24 hours and receive 0 units * This pattern seems to be consistent every other day * I estimate the patient needs ~30-40 units/day to maintain good glycemic control and avoid hypoglycemia * I plan to initiate basal bolus based on 40 units/day, stress of 2 and reassess in the AM * ADA & AACE recommend a goal blood sugar range 140-180 mg/dl for the majority of critically ill & non-critically ill patients. However, more stringent targets may be selected in individual cases. PLAN FOR INPATIENT GLYCEMIC CONTROL: * Holding outpatient oral diabetes medications * Basal insulin with LEVEMIR 20 units SQ HS * Correctional Insulin with NOVOLOG per scale ACHS or Q6hrs while NPO * Goal Range: Low 140 mg/dL - High 180 mg/dL * Correction Factor: 40 mg/dL/unit * Nutritional / Prandial insulin per carb ratio of 1 unit per 13 grams CHO consumed * Please note that the plan above was derived based on current level of insulin resistance and hospital stress. These recommendations are appropriate for inpatient admission only. Plan of care upon discharge will need to be reassessed to avoid potential outpatient hypo/hyperglycemia. Thank you.
[2016-06-17] MEDS ORDERED: HYDR-5688 PO (13:12)
[2016-06-17] MEDS ORDERED: LBR10 PO (13:12)
[2016-06-17] MEDS ORDERED: MTR500 PO (13:12)
[2016-06-17] MEDS ORDERED: LVMIPEN SC (13:12)
[2016-06-17] MEDS ORDERED: LSN40 PO (13:12)
[2016-06-17] MEDS ORDERED: TPRSR25 PO (13:12)
[2016-06-17] MEDS ORDERED: NF1094 IV (13:12)
[2016-06-17] MEDS ORDERED: TPRSR50 PO (13:12)
[2016-06-17] MEDS ORDERED: NRV5 PO (13:12)
[2016-06-17] MEDS ORDERED: CMD5 PO (13:13)
[2016-06-17 13:33] LABS: URINE APPEARANCE CLEAR (CLEAR); URINE BILIRUBIN NEG (NEG); URINE COLOR YELLOW; URINE NITRITE NEG (NEG); URINE SPECIFIC GRAVITY 1.007 (1.000-1.030); UROBILINOGEN NEG (NEG); ZZUR CULT IF INDIC CLEAN CATCH NO
[2016-06-17 13:36] LABS: MANUAL MICROSCOPIC REQUIRED? NO; REVIEW REQ? NO; SULFASALICYLIC ACID POS (NEG)
--- NOTE | 2016-06-17 14:34 | DIAGNOSTIC IMAGING REPORT ---
SCROTAL ULTRASOUND CLINICAL HISTORY: Left testicular pain. COMPARISON STUDY: None. TECHNIQUE: Grayscale and color and duplex Doppler sonography of the scrotum was performed. FINDINGS: The right testis measures 3.9 x 1.9 x 2.4 cm and the left measures 4.2 x 2.2 x 2.7 cm. There is no testicular mass. Color flow within each testis is symmetric. There is a suspected small right-sided hydrocele. There is increased vascularity and asymmetric increased size of the left epididymis. IMPRESSION: 1. Findings suggestive of left-sided epididymitis. 2. Normal sonographic appearance of the testes. Electronically signed by: Adrian Fox M.D. 06/17/2016 2:32 PM Dictated Date/Time: 06/17/2016 2:31 PM
[2016-06-17 15:03] VITALS: BP 164/70; PULSE 59; TEMP 36.6; O2SAT 97
[2016-06-17] MEDS ORDERED: LEVO-17 PO (15:06)
--- NOTE | 2016-06-17 15:16 | Discharge Instructions ---
Discharge Instructions Date of Service June 17, 2016. Admission Reason for Admission: Unsp Open Wound, Right Foot, [place] Discharge Discharge Diagnosis / Problem: Right foot osteomyelitis, atrial fibrillation, pneumonia, epididymitis Discharge Goals Goal(s): Improve function, Increase independence, Therapeutic intervention ( hemodialysis, Vancomycin) Activity Recommendations Activity Limitations: resume your previous activity Exercise/Sports Limitations: as tolerated May Resume Sexual Activity: when tolerated Shower/Bathe: keep incision dry Driving or Machine Use: do not drive while on Narcotics . Instructions / Follow-Up Instructions / Follow-Up Medications: please refer to list of new medications and medications that have been stopped - VANCOMYCIN: will be delivered to your house, take with you to dialysis tomorrow and Tuesday, they will administer afterwards - FLAGYL: take twice a day for osteomyelitis - LEVAQUIN: for epididymitis, received 500mg today, take 250mg started Tuesday and take every other day for 4 doses - LISINOPRIL: 40mg daily, started for high blood pressure - COUMADIN: 5mg daily, get INR drawn on 06/21 at hemodialysis, this is for atrial fibrillation - TOPROL: dose changed to 75mg in the morning and 50mg at night, take this for rate control - NORCO: take as needed for pain control with the foot - LANTUS: note that dose decreased to 20 units due to hypoglycemia, may need to increase back up if you are going to eat more carbohydrates on discharge - NORVASC: started for high blood pressure Osteomyelitis s/p debridement: follow up with wound clinic on 06/24 and then follow up with Dr. Gaines, no further debridement needed you may place weight on the foot using boot 2 more doses of Vancomycin needed, Tuesday and Tuesday, take with you to dialysis Atrial fibrillation: new diagnosis, now back in normal rhythm, you are to take Toprol to keep you in normal rhythm started on Coumadin 5mg daily for stroke prevention please follow up with INR draws, results to Dr. Mendez Pneumonia: you completed 7 days of antibiotics IV, no further treatment Epididymitis: seen on US of scrotum, treat with Levaquin, 4 doses needed after discharge, first dose at home will be Tuesday ESRD: follow up as normally scheduled for hemodialysis on [facility], follow up with Dr. Hardin FOLLOW UP - hemodialysis on Tuesday, take Vancomycin with you - Wound clinic on 06/24, will be evaluated by infectious disease at this visit, very important that you go to this visit - Dr. Gaines in one week, call for appointment - Dr. Mendez in one week, call for appointment - Infectious disease, Dr. Ellis, they will see you in wound clinic and discuss further follow up Current Hospital Diet Patient's current hospital diet: Diabetes Type 2 Diet, Renal Diet, AHA Diet ( Heart Healthy) Discharge Diet Recommended Diet: Diabetes Type 2 Diet, Renal Diet Procedures Procedures Performed: Fistulogram Percutaneous Transluminal Angioplasty Venous Moderate Sedation [id number] Pending Studies Studies pending at discharge: no Laboratory Results Hemoglobin A1c Test 06/17/16 06:09 Range/Units Estimated Average Glucose 157 mg/dl Hemoglobin A1c 7.1 H 4.5-5.6 % Medical Emergencies . Who to Call and When: Medical Emergencies: If at any time you feel your situation is an emergency, please call 911 immediately. . Non-Emergent Contact Non-Emergency issues call your: Primary Care Provider, Surgeon Call Non-Emergent contact if: you have a fever, your pain is worsening . . "Provider Documentation" section prepared by Tristan Pfeiffer. . Wire Frame Dipper Recommendations Wire Frame Dipper Recommendations: At this time the pulmonary service will official sign off on his in patient care but I have two suggestions: 1) COPD: On active issues suggest the patient f/u in the pulmonary clinic with repeat PFT's every year and when stable adjustment of his inhalers. 2) Aspiration: No rafa aspiration noted at bedside swallowing examination performed 06/08/2016. He did have a GI series 05/12/2010 showing esophageal dysmotility and gastroesophageal reflux. The patient also has a history/ diagnosis of laryngeal pharyngeal reflux. Once again would continue to follow speeches recommendations for aspiration precautions. VTE Core Measure Inpt VTE Proph given/why not?: Unfractionated heparin SQ, T.E.D. Stockings, [facility]CD 's [place] Drug Monitoring Program Search Results: no issues identified
[2016-06-17] MEDS ORDERED: LEVOFLOXACIN 500 MG TAB PO STA (15:24)
[2016-06-17] MEDS ORDERED: INSULIN DETEMIR FLEXPEN/FLEX TOUCH 100 UNITS/ML 3ML SC SCH (21:00)
[2016-06-17] MEDS: TRAZODONE HCL 100 MG TAB PO SCH (21:52)
[2016-06-17] MEDS: TRAZODONE HCL 50 MG TAB PO SCH (21:53)
[2016-06-17] MEDS: TAMSULOSIN HCL 0.4 MG CAP PO SCH (21:54)
[2016-06-17] MEDS: METOPROLOL SUCC 50MG EXT REL TAB PO SCH (21:54)
[2016-06-17] MEDS: ALLOPURINOL 100 MG TAB PO SCH (21:55)
[2016-06-17 23:13] VITALS: BP 164/63; PULSE 54; TEMP 36.2; O2SAT 97
[2016-06-18] VITALS (22 sets, daily range): BP systolic 100–168; BP diastolic 43–79; PULSE 48–64; TEMP 36.2–36.7; O2SAT 94–96
[2016-06-18 07:13] LABS: HEMATOCRIT 26.7 % (42-52); MEAN CELL VOLUME 90.2 fL (80-100); MEAN CORPUSCULAR HEMOGLOBIN 29.7 pg (25-34); MEAN PLATELET VOLUME 8.2 fL (7.4-10.4); PLATELET COUNT 273 K/uL (130-400); RED BLOOD COUNT 2.96 M/uL (4.7-6.1); WHITE BLOOD COUNT 8.34 K/uL (4.8-10.8)
[2016-06-18] MEDS: BOOST GLUCOSE CONTROL PO SCH (07:55)
[2016-06-18] MEDS: CALCIUM ACETATE 667MG GELCAP PO SCH ×2 (07:56→13:33)
[2016-06-18] MEDS: INSULIN ASPART 100 UNITS/ML 3 ML PEN SC SCH ×2 (07:58→12:00)
[2016-06-18] MEDS: POLYETHYLENE (MIRALAX) 17 GM PACK PO SCH (09:00)
[2016-06-18] MEDS ORDERED: EPOETIN ALFA 20,000 UNITS/ML VIAL IV SCH (09:30)
--- NOTE | 2016-06-18 10:06 | Pharmacy Progress Note ---
Glycemic Control: Progress Nt Date of Service June 18, 2016. Scope Glycemic Pharmacist consulted by Dr Milind Pfeiffer on 06/16/16 for glycemic control and to write orders per [facility] inpatient glycemic control protocol. Objective Accuchecks BSG (last 24hrs): Test 06/17/16 12:19 06/17/16 16:49 06/17/16 20:44 Bedside Glucose 123 mg/dl (70-99) 149 mg/dl (70-99) 189 mg/dl (70-99) Laboratory Data (last 24hrs) HbA1c: Test 06/17/16 06:09 Hemoglobin A1c 7.1 % (4.5-5.6) H * However, this result is likely somewhat unreliable in ESRD patients d/t interactions between the A1c analyzing technique and high levels of urea in ESRD , reduced RBC life span, iron deficiency anemia, and EPO administration. HbA1c > 7.5% in ESRD patient may overestimate the extent of hyperglycemia in ESRD patients. Recent Pertinent Medications Outpatient Anti-diabetic Regimen: * Levemir 80 units qHS; Novolog 60 units twice daily * Total daily dose ~ 200 units/day The patient is currently receiving: * Basal insulin: Levemir 20units SQ HS * Correctional Insulin: Novolog Correction per scale ACHS Goal Range: Low 140 mg/dL - High 180 mg/dL Correction Factor: 40 mg/dL/unit * Prandial insulin: Per carb ratio of 1 unit per 13 grams CHO consumed Risk Factors for Insulin Resistance: * Infection * IVF * Recent Surgery * Diet * Dialysates Risk Factors of Insulin Sensitivity: * ESRD Assessment & Plan ASSESSMENT: * 75 yo T2D M with ESRD on dialysis MWF, admitted on 06/02/16 with osteomyelitis and subsequently underwent an amputation on 06/03/2016. He has been hospitalized since receiving Zosyn and vancomycin for the infection. * Pharmacy consulted 06/16/16 due to frequent severe hypoglycemic episodes * Hypoglycemia secondary to large outpatient basal insulin doses continued on admission --> outpatient basal insulin dosing is likely covering some prandial needs. Additionally, diet may be controlled/reduced in house as compared to unrestricted diet as an outpatient * Pharmacy changed/decreased SQ basal bolus insulin regimen based on an estimated total daily dose of ~40 units/day to maintain glycemic control and avoid hypoglycemia. This total daily dose is ordered as a 50%:50% split between basal:prandial needs. * AM fasting BSG is slightly below goal range at 99mg/dl this morning --> will lower basal insulin dosing slightly * Post-prandial BSGs are in range --> no changes need made to CF/CR * ADA & AACE recommend a goal blood sugar range 140-180 mg/dl for the majority of critically ill & non-critically ill patients. However, more stringent targets may be selected in individual cases. PLAN FOR INPATIENT GLYCEMIC CONTROL: * Basal insulin * DECREASE Lantus to 18 units SQ HS * Bolus Insulin - No changes needed at this time * NovoLog per scale ACHS or Q6hrs while NPO * Goal Range: Low 140 mg/dL - High 180 mg/dL * Correction Factor: 40 mg/dL/unit * Nutritional / Prandial insulin per carb ratio of 1 unit per 30 grams CHO consumed * Please note that the plan above was derived based on current level of insulin resistance and hospital stress. These recommendations are appropriate for inpatient admission only. Plan of care upon discharge will need to be reassessed to avoid potential outpatient hypo/hyperglycemia. Thank you. Looking ahead to discharge: * Outpatient dosing (200 units/day) is significantly more than current inpatient requirements * Outpatient regimen may need adjust (decreased) if patient is experiencing hypoglycemia as an outpatient
--- NOTE | 2016-06-18 10:32 | Dialysis Progress Note ---
Hemodialysis Note Date of Service June 18, 2016. Chief Complaint ESRD Subjective No acute events overnight. Testicular pain and tenderness is improving. Bre also reports some improvement in urinary symptoms. He denies fevers or chills. He has been keeping his scrotum elevated. He was seen and evaluated during hemodialysis this morning. He is tolerating dialysis well. He hopes that he can go home today. Review of Systems A complete review of systems was performed. Pertinent positives are noted above. All other systems are negative. Vital Signs Last 8 Hrs Date Time Temp Pulse Resp B/P Pulse Ox O2 Delivery O2 Flow Rate FiO2 06/18/16 10:00 49 108/49 06/18/16 09:45 48 116/46 06/18/16 09:30 52 105/43 06/18/16 09:15 54 121/57 06/18/16 09:00 54 147/61 06/18/16 08:45 52 126/52 06/18/16 08:36 59 124/59 06/18/16 06:52 36.4 53 16 135/59 94 Room Air I & O 24-Hour Column 06/18/16 07:59 Intake Total 690 ml Balance 690 ml Last Recorded Weight Weight (Kilograms): 114.300 Physical Exam General Appearance: WD/WN, no apparent distress Head: normocephalic, atraumatic Eyes: normal inspection, sclerae normal ENT: normal ENT inspection, pharynx normal Neck: supple, no JVD Respiratory/Chest: lungs clear, no respiratory distress, no accessory muscle use Cardiovascular: regular rate, rhythm, no gallop Abdomen/GI: non tender, soft Extremities/Musculoskelatal: normal inspection, no pedal edema, + pertinent finding (AVF Qb 400) Neurologic/Psych: alert, oriented x 3 Family History Negative for CKD / ESRD Social History Smoking Status: Unknown if ever smoked Drug Use: none Marital Status: Housing Status: lives with family Occupation: retired . Retired. Former smoker (2ppd x 45 years, quit 2002) Laboratory Results Past 24 Hours 06/18/16 06:46 Test 06/17/16 12:19 06/17/16 13:04 06/17/16 16:49 06/17/16 20:44 Bedside Glucose 123 mg/dl (70-99) 149 mg/dl (70-99) 189 mg/dl (70-99) Urine Color YELLOW Urine Appearance CLEAR (CLEAR) Urine pH 8.0 (4.5-7.5) Urine Specific [place] 1.007 (1.000-1.030) Urine Protein 2+ (NEG) Urine Glucose (UA) TRACE (NEG) Urine Ketones NEG (NEG) Urine Occult Blood TRACE (NEG) Urine Nitrite NEG (NEG) Urine Bilirubin NEG (NEG) Urine Urobilinogen NEG (NEG) Urine Leukocyte Esterase TRACE (NEG) Urine WBC (Auto) 1-5 /hpf (0-5) Urine RBC (Auto) 0-4 /hpf (0-4) Urine Hyaline Casts (Auto) 1-5 /lpf (0-5) Urine Epithelial Cells (Auto) 10-20 /lpf (0-5) Urine Bacteria (Auto) NEG (NEG) Test 06/18/16 04:44 06/18/16 06:46 Red Blood Count 2.96 M/uL (4.7-6.1) Mean Corpuscular Volume 90.2 fL (80-100) Mean Corpuscular Hemoglobin 29.7 pg (25-34) Mean Corpuscular Hemoglobin Concent 33.0 g/dl (32-36) RDW Standard Deviation 50.6 fL (36.4-46.3) RDW Coefficient of Variation 15.6 % (11.5-14.5) Mean Platelet Volume 8.2 fL (7.4-10.4) Random Vancomycin Level 16.6 mcg/ml Allergies Coded Allergies: No Known Allergies (Verified , 06/02/16) Medications Current Inpatient Medications Medications (Trade) Dose Ordered Sig/Eliseo Route Start Time Stop Time Status Last Admin Dose Admin Polyethylene (Miralax Powder Packet) 17 gm DAILY PO 06/03/16 08:00 07/03/16 08:59 06/14/16 14:49 17 GM Allopurinol (Zyloprim Tab) 100 mg HS PO 06/02/16 21:00 07/02/16 20:59 06/17/16 21:55 100 MG Aspirin (Ecotrin Tab) 81 mg QAM PO 06/03/16 08:00 07/03/16 08:59 Future hold 06/17/16 09:29 81 MG Atorvastatin Calcium (Lipitor Tab) 20 mg DAILY PO 06/03/16 08:00 5/20/17 08:59 06/17/16 09:29 20 MG Calcium Acetate (Phoslo Cap) 667 mg TIDM PO 06/02/16 17:00 07/02/16 16:59 06/18/16 07:56 667 MG Furosemide (Lasix Tab) 40 mg DAILY PO 06/03/16 08:00 07/03/16 08:59 06/17/16 09:29 40 MG Ipratropium [place] (Atrovent Hfa Inhaler) 2 puffs QID PRN INH 06/02/16 12:30 07/02/16 12:29 Albuterol/ Ipratropium (Duoneb) 3 ml Q4H PRN INH 06/02/16 12:30 07/02/16 12:29 06/09/16 22:49 3 ML Meclizine HCl (Antivert Tab) 25 mg Q4H PRN PO 06/02/16 12:30 07/02/16 12:29 Tamsulosin HCl (Flomax Cap) 0.4 mg HS PO 06/02/16 21:00 07/02/16 20:59 06/17/16 21:54 0.4 MG Cholecalciferol (Vitamin D Tab) 2,000 inter.unit QAM PO 06/03/16 08:00 07/03/16 08:59 06/17/16 09:28 2,000 INTER.UNIT Ranitidine HCl (zANTac TAB) 300 mg QAM PO 06/03/16 08:00 07/03/16 08:59 06/17/16 09:28 300 MG Vancomycin HCl (Consult) 1 ea UD PRN N/A 06/02/16 15:00 07/02/16 14:59 Glucose (Glucose 40% Gel) 15-30 GRAMS 15 GRAMS... UD PRN PO 06/02/16 17:00 07/02/16 16:59 06/14/16 07:02 15 GM Glucose (Glucose Chew Tab) 4-8 Tablets 4 Tabl... UD PRN PO 06/02/16 17:00 07/02/16 16:59 06/16/16 06:07 4 TABS Dextrose (Dextrose 50% 50ML Syringe) 25-50ML OF 50% DW IV FOR... UD PRN IV 06/02/16 17:00 07/02/16 16:59 06/12/16 06:53 50 ML Glucagon (Glucagon Inj) 1 mg UD PRN SQ 06/02/16 17:00 07/02/16 16:59 Acetaminophen (Tylenol Tab) 650 mg Q4H PRN PO 06/03/16 14:30 07/03/16 14:29 06/07/16 10:52 650 MG Al Hydrox/Mg Hydrox/Simethicone (Maalox Max Susp) 15 ml Q4H PRN PO 06/03/16 14:30 07/03/16 14:29 06/09/16 23:46 15 ML Magnesium Hydroxide (Milk Of Magnesia Susp) 30 ml Q12H PRN PO 06/03/16 14:30 07/03/16 14:29 Ondansetron HCl (Zofran Inj) 4 mg Q6H PRN IV 06/03/16 14:30 07/03/16 14:29 06/05/16 15:11 4 MG Metoclopramide HCl (Reglan Inj) 5 mg Q6H PRN IV 06/03/16 14:30 07/03/16 14:29 06/05/16 17:22 5 MG Trazodone HCl (Desyrel Tab) 100 mg HS PO 06/05/16 21:00 07/05/16 20:59 06/17/16 21:52 100 MG Chlordiazepoxide (Librium Cap) 10 mg BID PO 06/06/16 09:00 07/06/16 08:59 06/17/16 21:54 10 MG Trazodone HCl (Desyrel Tab) 25 mg HS PO 06/05/16 21:00 07/05/16 20:59 06/17/16 21:53 25 MG Metoprolol Succinate (Toprol Xl Tab) 75 mg QAM PO 06/08/16 09:00 07/08/16 08:59 06/17/16 09:28 75 MG Nitroglycerin (Nitrostat Tab) 0.4 mg PRN PRN SL 06/10/16 00:15 07/10/16 00:14 06/10/16 00:22 0.4 MG Lisinopril (Zestril Tab) 40 mg QAM PO 06/10/16 12:00 07/10/16 11:59 06/17/16 09:28 40 MG Amlodipine Besylate (Norvasc Tab) 10 mg QAM PO 06/12/16 09:00 07/12/16 08:59 06/17/16 09:29 10 MG Morphine Sulfate (MoRPHine SULFATE INJ) 2 mg Q3H PRN IV 06/13/16 15:45 06/27/16 15:44 06/15/16 16:10 2 MG Insulin Aspart (novoLOG ASPART) SLIDING SCALE If C... ACHS SC 06/14/16 18:00 07/14/16 17:59 06/18/16 07:58 1 UNITS Metoprolol Succinate (Toprol Xl Tab) 50 mg PM PO 06/15/16 21:00 07/15/16 20:59 06/17/16 21:54 50 MG Metronidazole (Flagyl Tab) 500 mg BID PO 06/15/16 12:00 07/27/16 11:59 06/17/16 21:53 500 MG Enteral Nutritional Formula (Boost Glucose Control) 1 can DAILY PO 06/16/16 09:00 07/16/16 08:59 Miscellaneous Information (Consult Glycemic Management Pharmacy) 1 ea UD PRN N/A 06/16/16 14:03 07/16/16 14:02 Acetaminophen/ Hydrocodone Bitart ([place] 5/325 Tab) 1 tab Q6 PRN PO 06/16/16 16:45 06/30/16 16:44 06/17/16 03:58 1 TAB Acetaminophen/ Hydrocodone Bitart ([place] 5/325 Tab) 2 tab Q6 PRN PO 06/16/16 16:45 06/30/16 16:44 06/18/16 07:34 2 TAB Insulin Detemir (Levemir Flexpen/ FlexTouch) 18 unit HS SC 06/18/16 21:00 07/18/16 20:59 Epoetin [place] 66012 units 20,000 units TODAY@0930 IV 06/18/16 09:30 06/18/16 18:00 Vancomycin HCl/ Sodium Chloride (Vancomycin Inj/ Nss 250ml) 265 ml @ 212 mls/hr TODAY@1300 IV 06/18/16 13:00 06/18/16 16:00 Impression (1) End-stage renal disease on hemodialysis (2) Cellulitis of right foot (3) Sepsis (4) Monoclonal gammopathy (5) Diabetes mellitus, type II Bre is a 75-year-old male with end-stage renal disease on hemodialysis. Medical history notable for hypertension, diabetes mellitus, MGUS. He was admitted to the hospital with nausea and vomiting as well as a right lower extremity infected diabetic ulcer with osteomyelitis and abscesses. Drainage as well as 5th metatarsal head amputation was performed without complications. Wound culture grew MSSA and gram negative and blood culture was negative. 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 Fistulogram was performed on 06/14/16. CTA chest was negative for PE but did reveal right sided pneumonia. He was subsequently diagnosed with new a flutter and started on anticoagulation. Yesterday, he reported some new urinary symptoms including hesitancy as well as testicular tenderness. Symptoms consistent with epididymitis and/or prostatitis. US consistent with epididymitis. Urine microscopy acellular. Recommendations -- HD per MWF schedule -- UF goal 3-4 kg as tolerated -- Medications appropriately dosed for renal function -- Epogen [id number] w/ HD today -- Reviewed importance of rest and symptomatic management for epididymitis. Suspected to be non infectious but discussed potential need for antibiotics and close monitoring. -- Renal diet -- May continue vanco at HD unit as outpatient as needed
--- NOTE | 2016-06-18 12:21 | Pharmacy Progress Note ---
Pharmacy Antibiotic Prog Note Date of Service June 18, 2016. Subjective The patient is currently receiving vancomycin prn levels / HD The patient is currently on day # 17 of vancomycin IV therapy. Objective Height (Feet): 6 Height (Inches): 1.00 Weight (Kilograms): 114.300 Lab Results (24hrs): Laboratory Tests Test 06/18/16 06:46 White Blood Count 8.34 K/uL Assessment & Plan Assessment * 75 yo M with metatarsal abscess/osteomyelitis being followed by ID. Wound culture with MSSA, Enterococcus faecium, alpha Strep not Enterococcus, and Bacteroides. Currently being treated with vancomycin IV and metronidazole po. * Goal pre-HD vancomycin level 15-20 mcg/mL * Level of 16.6 mcg/mL this AM is therapeutic. * HD planned for today - post-HD doses have usually been either 500 or 750 mg. Will give the higher vancomycin dose post-HD today as next HD session may be 3 days from now and patient does make some urine * Next level w AM labs prior to anticipated HD session Plan * Vancomycin 750 mg IV x1 after HD today * Level 5/8 w AM labs Pharmacy will continue to follow and will adjust dose/frequency as necessary. Thank you
[2016-06-18] MEDS ORDERED: VANCOMYCIN INJ 750 MG in SODIUM CHLORIDE 0.9% 250ML 250 ML IV SCH ×4 (13:00)
[2016-06-18] MEDS: FUROSEMIDE 40 MG TAB PO SCH (13:33)
[2016-06-18] MEDS: CHOLECALCIFEROL 1000 INTER.UNIT TAB PO SCH (13:33)
[2016-06-18] MEDS: LISINOPRIL 40 MG TAB PO SCH (13:33)
[2016-06-18] MEDS: RANITIDINE HCL 150 MG TAB PO SCH (13:34)
[2016-06-18] MEDS: METRONIDAZOLE 500 MG TAB PO SCH (13:34)
[2016-06-18] MEDS: AMLODIPINE BESYLATE 5 MG TAB PO SCH (13:34)
[2016-06-18] MEDS: METOPROLOL SUCC 25MG EXT REL TAB PO SCH (13:34)
[2016-06-18] MEDS: ATORVASTATIN 20 MG TAB PO SCH (13:34)
[2016-06-18] MEDS: ASPIRIN 81 MG ECTAB PO SCH (13:34)
[2016-06-18] MEDS: CHLORDIAZEPOXIDE 10 MG CAP PO SCH (13:37)
[2016-06-18] MEDS ORDERED: INSULIN DETEMIR FLEXPEN/FLEX TOUCH 100 UNITS/ML 3ML SC SCH (21:00)
--- NOTE | 2016-06-20 14:25 | Progress Note ---
Subjective Date of Service: June 17, 2016. Subjective Pt evaluation today including: conversation w/ patient, physical exam, lab review, conversation w/ direct response consultant, review of inpatient medication list Pain: foot pain PO Intake: adequate Voiding: no voiding problems discussed going home, patient felt he was too weak and had nothing ready at home after a talk, both agreed that he could go home on Sunday 06/18 after hemodialysis updated case management made patient aware of testicular US results, epididymitis, plan to treat with Levaquin Problem List Medical Problems: (1) Cellulitis of right foot Status: Acute (2) Sepsis Status: Acute Review of Systems Constitutional: + fatigue, + weakness Musculoskeletal: + joint pain (foot) Male : + problem reported (scrotal pain and swelling) All Other Systems: Reviewed and Negative Medications Current Inpatient Medications Medications (Trade) Dose Ordered Sig/Eliseo Route Start Time Stop Time Status Last Admin Dose Admin Polyethylene (Miralax Powder Packet) 17 gm DAILY PO 06/03/16 08:00 07/03/16 08:59 06/14/16 14:49 17 GM Allopurinol (Zyloprim Tab) 100 mg HS PO 06/02/16 21:00 07/02/16 20:59 06/16/16 20:34 100 MG Aspirin (Ecotrin Tab) 81 mg QAM PO 06/03/16 08:00 07/03/16 08:59 Future hold 06/17/16 09:29 81 MG Atorvastatin Calcium (Lipitor Tab) 20 mg DAILY PO 06/03/16 08:00 07/03/16 08:59 06/17/16 09:29 20 MG Calcium Acetate (Phoslo Cap) 667 mg TIDM PO 06/02/16 17:00 07/02/16 16:59 06/17/16 13:17 667 MG Furosemide (Lasix Tab) 40 mg DAILY PO 06/03/16 08:00 07/03/16 08:59 06/17/16 09:29 40 MG Ipratropium [place] (Atrovent Hfa Inhaler) 2 puffs QID PRN INH 06/02/16 12:30 07/02/16 12:29 Albuterol/ Ipratropium (Duoneb) 3 ml Q4H PRN INH 06/02/16 12:30 07/02/16 12:29 06/09/16 22:49 3 ML Meclizine HCl (Antivert Tab) 25 mg Q4H PRN PO 06/02/16 12:30 07/02/16 12:29 Tamsulosin HCl (Flomax Cap) 0.4 mg HS PO 06/02/16 21:00 07/02/16 20:59 06/16/16 20:33 0.4 MG Cholecalciferol (Vitamin D Tab) 2,000 inter.unit QAM PO 06/03/16 08:00 07/03/16 08:59 06/17/16 09:28 2,000 INTER.UNIT Ranitidine HCl (zANTac TAB) 300 mg QAM PO 06/03/16 08:00 07/03/16 08:59 06/17/16 09:28 300 MG Vancomycin HCl (Consult) 1 ea UD PRN N/A 06/02/16 15:00 07/02/16 14:59 Glucose (Glucose 40% Gel) 15-30 GRAMS 15 GRAMS... UD PRN PO 06/02/16 17:00 07/02/16 16:59 06/14/16 07:02 15 GM Glucose (Glucose Chew Tab) 4-8 Tablets 4 Tabl... UD PRN PO 06/02/16 17:00 07/02/16 16:59 06/16/16 06:07 4 TABS Dextrose (Dextrose 50% 50ML Syringe) 25-50ML OF 50% DW IV FOR... UD PRN IV 06/02/16 17:00 07/02/16 16:59 06/12/16 06:53 50 ML Glucagon (Glucagon Inj) 1 mg UD PRN SQ 06/02/16 17:00 07/02/16 16:59 Acetaminophen (Tylenol Tab) 650 mg Q4H PRN PO 06/03/16 14:30 07/03/16 14:29 06/07/16 10:52 650 MG Al Hydrox/Mg Hydrox/Simethicone (Maalox Max Susp) 15 ml Q4H PRN PO 06/03/16 14:30 07/03/16 14:29 06/09/16 23:46 15 ML Magnesium Hydroxide (Milk Of Magnesia Susp) 30 ml Q12H PRN PO 06/03/16 14:30 07/03/16 14:29 Ondansetron HCl (Zofran Inj) 4 mg Q6H PRN IV 06/03/16 14:30 07/03/16 14:29 06/05/16 15:11 4 MG Metoclopramide HCl (Reglan Inj) 5 mg Q6H PRN IV 06/03/16 14:30 07/03/16 14:29 06/05/16 17:22 5 MG Trazodone HCl (Desyrel Tab) 100 mg HS PO 06/05/16 21:00 07/05/16 20:59 06/16/16 20:32 100 MG Chlordiazepoxide (Librium Cap) 10 mg BID PO 06/06/16 09:00 07/06/16 08:59 06/17/16 09:29 10 MG Trazodone HCl (Desyrel Tab) 25 mg HS PO 06/05/16 21:00 07/05/16 20:59 06/16/16 20:32 25 MG Metoprolol Succinate (Toprol Xl Tab) 75 mg QAM PO 06/08/16 09:00 07/08/16 08:59 06/17/16 09:28 75 MG Nitroglycerin (Nitrostat Tab) 0.4 mg PRN PRN SL 06/10/16 00:15 07/10/16 00:14 06/10/16 00:22 0.4 MG Lisinopril (Zestril Tab) 40 mg QAM PO 06/10/16 12:00 07/10/16 11:59 06/17/16 09:28 40 MG Amlodipine Besylate (Norvasc Tab) 10 mg QAM PO 06/12/16 09:00 07/12/16 08:59 06/17/16 09:29 10 MG Morphine Sulfate (MoRPHine SULFATE INJ) 2 mg Q3H PRN IV 06/13/16 15:45 06/27/16 15:44 06/15/16 16:10 2 MG Insulin Aspart (novoLOG ASPART) SLIDING SCALE If C... ACHS SC 06/14/16 18:00 07/14/16 17:59 06/17/16 09:36 2 UNITS Metoprolol Succinate (Toprol Xl Tab) 50 mg PM PO 06/15/16 21:00 07/15/16 20:59 06/16/16 20:34 50 MG Metronidazole (Flagyl Tab) 500 mg BID PO 06/15/16 12:00 07/27/16 11:59 06/17/16 09:29 500 MG Enteral Nutritional Formula (Boost Glucose Control) 1 can DAILY PO 06/16/16 09:00 07/16/16 08:59 Miscellaneous Information (Consult Glycemic Management Pharmacy) 1 ea UD PRN N/A 06/16/16 14:03 07/16/16 14:02 Acetaminophen/ Hydrocodone Bitart ([place] 5/325 Tab) 1 tab Q6 PRN PO 06/16/16 16:45 06/30/16 16:44 06/17/16 03:58 1 TAB Acetaminophen/ Hydrocodone Bitart ([place] 5/325 Tab) 2 tab Q6 PRN PO 06/16/16 16:45 06/30/16 16:44 Insulin Detemir (Levemir Flexpen/ FlexTouch) 20 unit HS SC 06/17/16 21:00 07/17/16 20:59 Levofloxacin (Levaquin Tab) 500 mg NOW PO 06/17/16 15:15 06/22/16 15:14 UNV Objective Vital Signs Date Time Temp Pulse Resp B/P Pulse Ox O2 Delivery O2 Flow Rate FiO2 06/17/16 15:03 36.6 59 16 164/70 97 Room Air 06/17/16 10:55 Room Air 06/17/16 08:03 36.5 53 16 158/66 94 Room Air 06/17/16 06:24 65 114/54 06/17/16 04:00 65 173/74 97 Room Air 06/16/16 23:35 Room Air 06/16/16 23:26 36.5 67 20 174/76 92 Room Air 06/16/16 20:30 Room Air 06/16/16 20:28 63 181/74 06/16/16 16:05 141/87 149/77 Physical Exam General Appearance: WD/WN, no apparent distress ENT: normal ENT inspection, hearing grossly normal, pharynx normal Neck: supple, no adenopathy, no JVD, trachea midline Respiratory/Chest: chest non-tender, lungs clear, normal breath sounds, no respiratory distress, no accessory muscle use Cardiovascular: regular rate, rhythm, no edema, no gallop, no JVD, no murmur Abdomen: normal bowel sounds, non tender, soft, no organomegaly Extremities: normal range of motion, non-tender, normal inspection, no pedal edema, no calf tenderness Neurologic/Psychiatric: tongue stitcher II-XII nml as tested, no motor/sensory deficits, alert, normal mood/affect, oriented x 3 Skin: normal color, warm/dry, no rash Laboratory Results Last 24 Hours Test 06/16/16 16:58 06/16/16 20:30 06/17/16 06:09 06/17/16 07:41 Bedside Glucose 104 mg/dl 129 mg/dl 112 mg/dl Prothrombin Time 13.4 SECONDS Prothromb Time International Ratio 1.2 Activated Partial Thromboplast Time 33.6 SECONDS Partial Thromboplastin Ratio 1.3 Estimated Average Glucose 157 mg/dl Hemoglobin A1c 7.1 % Test 06/17/16 12:19 06/17/16 13:04 Bedside Glucose 123 mg/dl Urine Color YELLOW Urine Appearance CLEAR Urine pH 8.0 Urine Specific [place] 1.007 Urine Protein 2+ Urine Glucose (UA) TRACE Urine Ketones NEG Urine Occult Blood TRACE Urine Nitrite NEG Urine Bilirubin NEG Urine Urobilinogen NEG Urine Leukocyte Esterase TRACE Urine WBC (Auto) 1-5 /hpf Urine RBC (Auto) 0-4 /hpf Urine Hyaline Casts (Auto) 1-5 /lpf Urine Epithelial Cells (Auto) 10-20 /lpf Urine Bacteria (Auto) NEG Assessment and Plan RIGHT DIABETIC FOOT INFECTION Growing MSSA, enterococcus, Bacteroides Surgical debridement 06/03 Wound care following Per ID note, recommend one more week of Vancomycin and PO Flagyl can get Vancomycin after HD, plan for 750mg IV since 500mg was not enough Continue to follow wound care post discharge prefers Secor to Percocet, will change plan for Vancomycin after HD on 06/18 then d/c home with plans for two more doses on 06/21 and 06/23 will see in wound clinic with ID on 06/24 to determine if can switch to PO antibiotics ATRIAL FIBRILLATION Currently in normal sinus rhythm which is rate controlled stop heparin gtt since in NSR, started Coumadin on 06/16 at 5mg daily Continue metoprolol succinate, HR in the 50-60's HYPOXIA History of tobacco abuse 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 Chest x-ray and CT chest show probable right lower lobe pneumonia treated adequately with Zosyn and Azithromycin breathing well, no further treatment needed EPIDIDYMITIS seen on testicular US on 06/17, started on Levaquin for 7 days DIABETES MELLITUS Continue levemir and sliding scale insulin with NovoLog Patient reports that he is slowly increasing his dietary intake hypoglycemia while here due to poor intake, says he eats more at home consult pharmacy to adjust insulin and try to prevent hypoglycemia difficult situation with him likely eating more when he goes home will be eating more carbs END-STAGE RENAL DISEASE Scheduled hemodialysis Tuesday Nephrology consulted Appreciate Dr. Hardin's input fistulogram on 06/14 tolerated HD on 06/16 ANEMIA Hemoglobin currently 8.8, no signs of bleeding Anemia of chronic disease Epogen per renal HYPERTENSION well controlled on Toprol, lisinopril, Norvasc, Lasix DEPRESSION/ANXIETY Continue Librium and Seroquel Good pain control needed GI PROPHYLAXIS Continue Zantac DVT PROPHYLAXIS stopped heparin gtt Limited ambulation secondary to right foot surgery started on Coumadin Plan: d/c home on 06/18 after HD with plans for Vancomycin Discharge planning: uncertain
--- NOTE | 2016-06-20 14:40 | Discharge Summary ---
Discharge Summary Date of Service June 18, 2016. Discharge Summary Admission Date: Jun 02, 2016 at 12:50 Discharge Date: June 18, 2016 Discharge Disposition: Home with services Principal Diagnosis: right diabetic foot infection, MSSA Problems/Secondary Diagnoses: paroxysmal atrial fibrillation pneumonia epididymitis diabetes mellitus hypoxic respiratory failure ESRD on hemodialysis anemia hypertension depression/anxiety Immunizations: Have You Had Influenza Vaccine: Yes History of Tetanus Vaccine?: Unknown History of Pneumococcal: Yes Pneumococcal Date: Dec 22, 2007 History of Hepatitis B Vaccine: Unknown Procedures: Right foot ulcer debridement, resection of fifth metatarsal head and bone, incision and drainage - 06/02 Fistulogram - 06/14 Consultations: Nephrology Cardiology Podiatry Infectious disease Pulmonology Critical care Vascular surgery Medication Reconciliation New Medications: Levofloxacin (Levaquin) 250 Mg Tab 250 MG PO Q2D for 4 Days, #4 TAB start on 06/19, take every other day for 4 doses Vancomycin HCl (Vancomycin HCl) 100 Mg/Ml Inj 750 MG IV UD, #2 DOSE 0 Refills after hemodialysis Warfarin Sod (Coumadin) 5 Mg Tab 5 MG PO DAILY, #30 TABS 3 Refills Amlodipine Besylate (Amlodipine Besylate) 5 Mg Tab 10 MG PO QAM, #60 TAB 3 Refills Chlordiazepoxide (Chlordiazepoxide HCl) 10 Mg Cap 10 MG PO BID, #60 CAP 3 Refills Hydrocodone/Acetaminophen 5MG/325MG ([place] 5MG/325MG) Tab 1 TAB PO Q6 PRN for Pain, #30 TAB 0 Refills PRN PAIN Hydrocodone/Acetaminophen 5MG/325MG ([place] 5MG/325MG) Tab 2 TAB PO Q6 PRN for Severe Pain, #60 TAB 0 Refills PRN PAIN Insulin Detemir (Levemir Flextouch) 100 Unit/Ml Inj 20 UNIT SC HS, #1 BOX 3 Refills Lisinopril (Lisinopril) 40 Mg Tab 40 MG PO QAM, #30 TAB 3 Refills Metoprolol Succinate (Metoprolol Succinate ER) 50 Mg Tabcr 50 MG PO PM, #30 TABS 3 Refills Metoprolol Succinate (Metoprolol Succinate ER) 25 Mg Tabcr 75 MG PO QAM, #90 TABS 3 Refills Metronidazole (Metronidazole) 500 Mg Tab 500 MG PO BID, #60 TAB 0 Refills Continued Medications: Allopurinol (Zyloprim) 100 Mg Tab 1 TAB PO HS for 30 Days, TAB 5 Refills Aspirin (Aspir-81) 81 Mg Tab 1 TAB PO QAM for 30 Days, #30 TAB 5 Refills Atorvastatin (Atorvastatin Calcium) 20 Mg Tab 1 TAB PO DAILY, #30 Calcium Acetate (Phosphate Bin (Phoslo 667 Mg) 667 Mg Cap 1 CAP PO TID Cholecalciferol (Vitamin D3) 2,000 Unit Cap 1 CAP PO DAILY, CAP Furosemide (Furosemide) 40 Mg Tab 1 TAB PO DAILY, #120 Insulin Aspart (Novolog Penfill) 100 Unit/Ml Inj 60 UNITS SQ BID SLIDING SCALE Ipratropium [place] (Atrovent Hfa) 200 Puffs/3400 Mcg Aers 2 PUFFS INH QID PRN for Shortness of Breath, #12.9 GM 5 Refills Ipratropium-Albuterol (Duoneb) 3 Ml Nebu 1 TREATMENT INH Q4H PRN for Shortness of Breath, INHA Meclizine HCl (Meclizine HCl) 25 Mg Tab 1 TAB PO Q4H PRN for Dizziness or Vertigo, #30 Ranitidine Hcl (Zantac) 300 Mg Tab 1 TAB PO DAILY Sodium Bicarbonate (Sodium Bicarbonate) 650 Mg Tab 1 TAB PO BID Tamsulosin HCl (Tamsulosin HCl) 0.4 Mg Cap 1 CAP PO HS, #30 Trazodone HCl (Trazodone HCl) 150 Mg Tab 1 TAB PO DAILY PRN for Pain, #30 Discontinued Medications: Amlodipine (Norvasc) 5 Mg Tab 5 MG PO QAM, TAB Insulin Detemir (Levemir) 100 Units/Ml Inj 80 UNITS SC HS Metoprolol Succ (Toprol Xl) (Toprol-Xl) 50 Mg Tabcr 50 MG PO QAM, #30 TAB Discharge Exam Patient doing well day of discharge, as soon as he finished HD he said "get me out of here." He was given Vancomycin 750mg IV and he ate and he left with his daughter. No complaints on day of discharge except for some generalized weakness but he was anxious to get home. Went over instructions with him below Instructions / Follow-Up Instructions / Follow-Up Medications: please refer to list of new medications and medications that have been stopped - VANCOMYCIN: will be delivered to your house, take with you to dialysis tomorrow and Tuesday, they will administer afterwards - FLAGYL: take twice a day for osteomyelitis - LEVAQUIN: for epididymitis, received 500mg today, take 250mg started Tuesday and take every other day for 4 doses - LISINOPRIL: 40mg daily, started for high blood pressure - COUMADIN: 5mg daily, get INR drawn on 06/21 at hemodialysis, this is for atrial fibrillation - TOPROL: dose changed to 75mg in the morning and 50mg at night, take this for rate control - NORCO: take as needed for pain control with the foot - LANTUS: note that dose decreased to 20 units due to hypoglycemia, may need to increase back up if you are going to eat more carbohydrates on discharge - NORVASC: started for high blood pressure Osteomyelitis s/p debridement: follow up with wound clinic on 06/24 and then follow up with Dr. Gaines, no further debridement needed you may place weight on the foot using boot 2 more doses of Vancomycin needed, Tuesday and Tuesday, take with you to dialysis Atrial fibrillation: new diagnosis, now back in normal rhythm, you are to take Toprol to keep you in normal rhythm started on Coumadin 5mg daily for stroke prevention please follow up with INR draws, results to Dr. Mendez Pneumonia: you completed 7 days of antibiotics IV, no further treatment Epididymitis: seen on US of scrotum, treat with Levaquin, 4 doses needed after discharge, first dose at home will be Tuesday ESRD: follow up as normally scheduled for hemodialysis on [facility], follow up with Dr. Hardin Review of Systems: Constitutional: + weakness, No chills, No fatigue, No fever, No problem reported, No sweats, No weight loss Respiratory: No cough, No dyspnea at rest, No dyspnea on exertion, No hemoptysis, No problem reported, No shortness of breath, No sputum, No wheezing Cardiovascular: No PND, No chest pain, No claudication, No edema, No orthopnea, No palpitations, No problem reported Abdomen: No GI bleeding, No constipation, No diarrhea, No nausea, No pain, No problem reported, No vomiting Musculoskeletal: + joint pain (right foot), No calf pain, No muscle pain, No problem reported, No swelling Genitourinary - Male: + problem reported (scrotal pain, improved), No dysuria, No hematuria, No urinary frequency, No urinary urgency Neurologic: + weakness, No balance problems, No memory loss, No numbness/ tingling, No paralysis, No problem reported, No vertigo Psychiatric: No anhedonism, No anxiety, No depression symptoms, No insomnia , No problem reported, No substance abuse Endocrine: No excessive thirst, No excessive urination, No fatigue, No problem reported Hematologic / Lymphatic: No abnormal bleeding/bruising, No clotting problems , No night sweats, No problem reported, No swollen lymph nodes Integumentary: No bleeding, No color change, No itch, No new/changing skin lesions, No problem reported, No rash Physical Exam: General Appearance: WD/WN, no apparent distress Eyes: normal inspection, EOMI, sclerae normal Neck: supple, no adenopathy, no JVD, trachea midline Respiratory/Chest: chest non-tender, lungs clear, normal breath sounds, no respiratory distress, no accessory muscle use Cardiovascular: regular rate, rhythm, no edema, no gallop, no JVD, no murmur , normal peripheral pulses Abdomen / GI: normal bowel sounds, non tender, soft, no organomegaly Extremities: no calf tenderness, normal capillary refill, no pedal edema, normal range of motion, non-tender, pelvis stable, + pertinent finding (right foot wrapped) Neurologic/Psychiatric: cut off 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 Gaines Wound care following Per ID note, recommend one more week of Vancomycin and PO Flagyl can get Vancomycin after HD (confirmed by Dr. Hardin), plan for 750mg IV Continue to follow wound care post discharge, appointment on 06/24 [place] PRN for pain control plan for Vancomycin after HD on 06/21 and 06/23 will see in wound clinic with ID on 06/24 to determine if can switch to PO antibiotics ATRIAL FIBRILLATION - new diagnosis Currently in normal sinus rhythm which is rate controlled stop heparin gtt since in NSR, started Coumadin on 06/16 at 5mg daily, INR 1.2 on day of discharge Continue metoprolol succinate, HR in the 50-60's PNEUMONIA - resolved completely, completed 7 days of Zosyn/Zithromax Chest x-ray and CT chest show probable right lower lobe pneumonia treated adequately with Zosyn and Azithromycin breathing well, no further treatment needed EPIDIDYMITIS seen on testicular US on 06/17, started on Levaquin for 7 days DIABETES MELLITUS was having hypoglycemia on Lantus 80 units with Novolog cut back to 20 units patient admits to eating much better in the hospital, he will likely eat more carbs once discharged he will likely need to increase dose of Lantus, instructed him about this END-STAGE RENAL DISEASE Scheduled hemodialysis Tuesday fistulogram on 06/14 tolerated HD on 06/18 and scheduled again on 06/21 ANEMIA Hemoglobin 8.8 on last check, no signs of bleeding Anemia of chronic disease Epogen per renal HYPERTENSION well controlled on Toprol, lisinopril, Norvasc, Lasix DEPRESSION/ANXIETY Continue Librium and Seroquel Good pain control needed GI PROPHYLAXIS Continue Zantac DVT PROPHYLAXIS Coumadin Total Time Spent: Greater than 30 minutes This includes examination of the patient, discharge planning, medication reconciliation, and communication with other providers. Discharge Instructions Please refer to the electronic Patient Visit Report (Discharge Instructions) for additional information. Follow-Up - hemodialysis on Tuesday, take Vancomycin with you - Wound clinic on 06/24, will be evaluated by infectious disease at this visit, very important that you go to this visit - Dr. Gaines in one week, call for appointment - Dr. Mendez in one week, call for appointment - Infectious disease, Dr. lElis, they will see you in wound clinic and discuss further follow up Additional Copies To Drake Ellis MD; Obi Mendez M.D.; Eleuterio Hardin D.O.; Alyssa Hart DPM; Quentin Junior, DO
[2016-07-08] MEDS ORDERED: NF1420 PO (14:08)
[2016-07-13] MEDS ORDERED: METO25TA3 PO (17:57)
[2016-07-13] MEDS ORDERED: FRS/40 PO (17:57)
[2016-07-13] MEDS ORDERED: ALLO100T PO (17:57)
[2016-07-13] MEDS ORDERED: LIDO4CRE10 TOP (17:57)
[2016-07-16] MEDS ORDERED: HYDR-5688 PO (11:21)
[2016-07-16] MEDS ORDERED: NUTR-7 PO (11:21)
[2016-07-16] MEDS ORDERED: VLTG EXT (11:21)
[2016-07-16] MEDS ORDERED: B-COCAP20 PO (11:21)
[2016-07-19] MEDS ORDERED: NVLGIPEN SC (16:27)
[2016-07-19] MEDS ORDERED: VLTG EXT (16:27)
[2016-07-19] MEDS ORDERED: CMD3 PO (16:28)
[2016-07-19] MEDS ORDERED: INSU3INJ3 SQ (16:35)
[2016-07-19] MEDS ORDERED: OXYC-57 PO (17:07)
[2016-07-29] MEDS ORDERED: GABA-112 PO (13:17)
== END 2016-06-18 16:00 | disposition home health service (06) | DRG 853 ==
LOC: ENRESERVDT → ENRESERVTM → EDBD 09:24 → C.EDA 09:26 → C.4E 12:50 → EDBEDREQ 13:52 → C.2T 06-03 15:40 → C.MSICU 06-07 12:04 → CMPBEDREQ 06-07 12:04 → C.2T 06-09 17:52 → C.MSW 06-11 15:30
PROVIDERS: ADMIT Internal Medicine; ATTEND Internal Medicine
PROC: 0QBN0ZZ Excision of Right Metatarsal, Open Approach (ICD-10-PCS; principal; 2016-06-03 13:30)
PROC: 057F3ZZ Dilation of Left Cephalic Vein, Percutaneous Approach (ICD-10-PCS; 2016-06-14)
DX: A41.01 Sepsis due to Methicillin susceptible Staphylococcus aureus (principal); N18.6 End stage renal disease; J18.9 Pneumonia, unspecified organism; L03.115 Cellulitis of right lower limb; I12.0 Hypertensive chronic kidney disease with stage 5 chronic kidney disease or end stage renal disease; I82.5Z2 Chronic embolism and thrombosis of unspecified deep veins of left distal lower extremity; M86.171 Other acute osteomyelitis, right ankle and foot; T82.858A Stenosis of other vascular prosthetic devices, implants and grafts, initial encounter; E11.621 Type 2 diabetes mellitus with foot ulcer; I48.91 Unspecified atrial fibrillation; M10.9 Gout, unspecified; N45.1 Epididymitis; E11.22 Type 2 diabetes mellitus with diabetic chronic kidney disease; J44.9 Chronic obstructive pulmonary disease, unspecified; K59.00 Constipation, unspecified; E78.5 Hyperlipidemia, unspecified; K21.9 Gastro-esophageal reflux disease without esophagitis; D47.2 Monoclonal gammopathy; Z79.4 Long term (current) use of insulin; Z79.82 Long term (current) use of aspirin; Z79.899 Other long term (current) drug therapy; Z99.2 Dependence on renal dialysis; Y83.1 Surgical operation with implant of artificial internal device as the cause of abnormal reaction of the patient, or of later complication, without mention of misadventure at the time of the procedure

== ENCOUNTER → 2016-06-04 | Day surgery (SDC) | payer OTHER ==
[~2016-06-04] MED LIST changes: +ACET325T96 PO; +ANT25 PO; +ASPI81TA28 PO; +B-CO1CAP17 PO; +B-COCAP20 PO; +CALC667C PO; +CEFAZOLIN 1000MG/55 ML D5W IV SCH; +CHLO10CA7 PO; -CHOL100010 PO; +CHOL2000 PO; +CMD3 PO; +CMD5 PO; +DSY/150 PO; +FLM4 PO; +FRS/40 PO; +GABA-112 PO; +HYDR-5688 PO; +INSU1INJ2 SQ; +INSU3INJ3 SQ; -INSUINJ12 SC; +LACTATED RINGER'S 1000ML 1,000 ML IV SCH; +LACTATED RINGER'S 1000ML 500 ML IV SCH; +LBR10 PO; +LEVO-17 PO; +LEVO-366 PO; +LIDO4CRE10 TOP; +LISI40TA PO; +LPT/20 PO; +LSN40 PO; +LSX40 PO; +LVMI SC; +LVMIPEN SC; +METO25TA3 PO; +METR-163 PO; +MTR500 PO; +NF1094 IV; +NF1420 PO; +NRV5 PO; +NUTR-7 PO; -NVLGI SC; +NVLGIPEN SC; +OXYC-57 PO; -PRLSR20 PO; +RANI300T PO; +TPRSR25 PO; +TPRSR50 PO; +VLTG EXT
== END | disposition home or self-care (01) ==
LOC: EDSTATUS 10:00 → C.PAT 13:49
PROVIDERS: ATTEND Podiatrist
DX: L97.519 Non-pressure chronic ulcer of other part of right foot with unspecified severity (principal); Z53.9 Procedure and treatment not carried out, unspecified reason

== ENCOUNTER 2016-06-22 19:03 | Inpatient (IN) | payer OTHER ==
[~2016-06-22] VITALS: Ht 185.4 cm; Wt 107.2 kg
[~2016-06-22 19:03] MED LIST changes: -ACET325T96 PO; -AMLO-110 PO; -ASPI81TA28 PO; -B-CO1CAP17 PO; -B-COCAP20 PO; -CEFAZOLIN 1000MG/55 ML D5W IV SCH; -CHLO10CA7 PO; -CMD3 PO; -FRS/40 PO; -GABA-112 PO; -INSU3INJ3 SQ; -LACTATED RINGER'S 1000ML 1,000 ML IV SCH; -LACTATED RINGER'S 1000ML 500 ML IV SCH; -LEVO-366 PO; -LIDO4CRE10 TOP; -LISI40TA PO; -LVMI SC; -METO25TA3 PO; -METO50TA7 PO; -METR-163 PO; -NF1420 PO; -NUTR-7 PO; -NVLGIPEN SC; -OXYC-57 PO; -VLTG EXT
--- NOTE | 2016-06-22 20:16 | DIAGNOSTIC IMAGING REPORT ---
CHEST ONE VIEW PORTABLE CLINICAL HISTORY: Respiratory distress. Shortness of breath. COMPARISON STUDY: 06/03/2016 FINDINGS: The heart is enlarged. There is elevation interstitium consistent with congestive failure/fluid overload. There is no lobar consolidation. Trace pleural effusions are suspected.[ IMPRESSION: Cardiomegaly and radiographic evidence of mild congestive failure/fluid overload. Trace pleural effusions. Electronically signed by: Sandip Montana M.D. 06/22/2016 8:15 PM Dictated Date/Time: 06/22/2016 8:14 PM
[2016-06-22 21:34] LABS: BASO % 0.8 %; BASO ABS # 0.08 K/uL (0-0.2); COMPLETE YES; EOS % 1.5 %; HEMATOCRIT 28.8 % (42-52); IG% 0.3 %; LYMPH % 22.9 %; MEAN CELL VOLUME 90.9 fL (80-100); MEAN CORPUSCULAR HEMOGLOBIN 29.3 pg (25-34); MEAN CORPUSCULAR HGB CONC 32.3 g/dl (32-36); MEAN PLATELET VOLUME 8.4 fL (7.4-10.4); MONO % 14.8 %; NEUT % 59.7 %; PLATELET COUNT 326 K/uL (130-400); RED BLOOD COUNT 3.17 M/uL (4.7-6.1); WHITE BLOOD COUNT 10.05 K/uL (4.8-10.8)
--- NOTE | 2016-06-22 21:36 | EMERGENCY ROOM VISIT NOTE ---
History Report prepared by [place]: Maddy Castillo Under the Supervision of: Dr. Mj Prieto D.O. First contact with patient: 19:23 Chief Complaint: RESPIRATORY PROBLEMS Stated Complaint: CAN'T BREATHE Nursing Triage Summary: pt to [facility] ED with c/o SOB adn chest pain for the past 4 hrs pt is a dialysis pt MWF History of Present Illness The patient is a 75 year old male who presents to the Emergency Room with complaints of persistent SOB starting this morning. He is having difficulty breathing and chest pain with breathing and movement. He had some vomiting yesterday. He reports chills. He denies any fever, cough, or chest pain at rest. He does not have increased swelling in his legs. He had pneumonia 2 weeks ago. He goes to dialysis 3 times a week. He denies any tobacco or alcohol use. He is on warfarin for A fib. He denies any history of PE or DVT. Source of History: patient Onset: this morning Position: other (respiratory) Quality: other (SOB) Timing: other (persistent) Associated Symptoms: + chest pain (with breathing), + chills, + vomiting, No cough, No fevers Note: Pt denies chest pain at rest, increased swelling in legs. Review of Systems See HPI for pertinent positives & negatives. A total of 10 systems reviewed and were otherwise negative. Past Medical & Surgical Medical Problems: (1) CKD (chronic kidney disease) stage 3, GFR 30-59 ml/min (2) Diabetes mellitus, type II (3) Diabetic ulcer of right foot (4) End-stage renal disease on hemodialysis (5) Gout (6) History of adenomatous polyp of colon (7) History of Clostridium difficile infection (8) Hypertension (9) Monoclonal gammopathy (10) Osteomyelitis (11) Unspecified open wound, right foot, sequela Surgical Problems: (1) Status post arthroscopic knee surgery Family History FH: diabetes mellitus AUNT FH: stroke GRANDMOTHER Heart disease Hypertension Kidney disease Social History Smoking Status: Former Smoker Alcohol Use: none Drug Use: none Marital Status: Housing Status: lives with family Occupation Status: retired Current/Historical Medications Scheduled Allopurinol (Zyloprim), 100 MG PO HS Amlodipine (Norvasc), 10 MG PO QAM Aspirin (Aspirin Ec), 81 MG PO QAM Atorvastatin (Atorvastatin Calcium), 20 MG PO DAILY Calcium Acetate (Phosphate Bin (Phoslo 667 Mg), 667 MG PO TID Chlordiazepoxide (Librium), 10 MG PO BID Cholecalciferol (Vitamin D3), 2,000 UNITS PO DAILY Furosemide (Furosemide), 40 MG PO DAILY Insulin Aspart (Novolog Penfill), 60 UNITS SQ BID Insulin Detemir (Levemir Flextouch), 20 UNITS SQ HS Lisinopril (Zestril), 40 MG PO QAM Metoprolol Succ (Toprol Xl) (Toprol-Xl), 50 MG PO QPM Metoprolol Succinate (Metoprolol Succinate ER), 75 MG PO QAM Metoprolol Succinate (Metoprolol Succinate ER), 50 MG PO QPM Metronidazole (Flagyl), 500 MG PO BID Ranitidine Hcl (Zantac), 300 MG PO DAILY Sodium Bicarbonate (Sodium Bicarbonate), 650 MG PO BID Tamsulosin HCl (Tamsulosin HCl), 0.4 MG PO HS Vancomycin HCl (Vancomycin HCl), 750 MG IV UD Warfarin Sod (Coumadin), 5 MG PO DAILY Scheduled PRN Hydrocodone/Acetaminophen 5MG/325MG ([place] 5MG/325MG), 1 TAB PO Q6H PRN for Pain Hydrocodone/Acetaminophen 5MG/325MG ([place] 5MG/325MG), 2 TABLETS PO Q6H PRN for Pain Ipratropium [place] (Atrovent Hfa), 2 PUFFS INH QID PRN for Shortness of Breath Ipratropium-Albuterol (Duoneb), 1 TREATMENT INH Q4H PRN for Shortness of Breath Meclizine HCl (Meclizine HCl), 25 MG PO Q4H PRN for Dizziness or Vertigo Trazodone HCl (Trazodone HCl), 150 MG PO HS PRN for Sleep Allergies Coded Allergies: No Known Allergies (Verified , 06/02/16) Physical Exam Vital Signs Date Time Temp Pulse Resp B/P Pulse Ox O2 Delivery O2 Flow Rate FiO2 06/22/16 23:23 150 18 177/102 93 Room Air 06/22/16 23:15 151 06/22/16 22:10 150 18 164/99 95 Nasal Cannula 2.0 06/22/16 21:13 108 22 149/96 94 Nasal Cannula 2.0 5/9/17 21:00 155 06/22/16 20:14 85 06/22/16 20:11 94 Room Air 06/22/16 20:11 94 Room Air 06/22/16 19:04 36.8 95 20 168/80 94 Room Air Physical Exam GENERAL: Patient is awake, alert, and somewhat anxious but overall comfortable appearing. EYES: The conjunctivae are clear. The pupils are round and reactive. EARS, NOSE, MOUTH AND THROAT: The nose is without any evidence of any deformity. Mucous membranes are moist tongue is midline NECK: The neck is nontender and supple. RESPIRATORY: Lung sounds diminished throughout, splinting respirations noted, no significant conversational dyspnea noted. CARDIOVASCULAR: Regular rate and rhythm noted there no murmurs rubs or gallops normal S1 normal S2 GASTROINTESTINAL: The abdomen is soft. Bowel sounds are present in all quadrants. Abdomen is nontender MUSCULOSKELETAL/EXTREMITIES: There is no evidence of gross deformity full range of motion is noted in the hips and shoulders SKIN: There is no obvious evidence of any rash. There are no petechiae, pallor or cyanosis noted. Pedal edema noted bilaterally. NEUROLOGIC: Patient is awake alert and oriented x3 Medical Decision & Procedures ER Provider Diagnostic Interpretation: X-ray results as stated below per interpretation by me and the radiologist. Radiology results as stated below per my review and radiologist interpretation: CHEST ONE VIEW PORTABLE CLINICAL HISTORY: Respiratory distress. Shortness of breath. COMPARISON STUDY: 06/03/2016 FINDINGS: The heart is enlarged. There is elevation interstitium consistent with congestive failure/fluid overload. There is no lobar consolidation. Trace pleural effusions are suspected.[ IMPRESSION: Cardiomegaly and radiographic evidence of mild congestive failure/fluid overload. Trace pleural effusions. Electronically signed by: Sandip Montana M.D. 06/22/2016 8:15 PM Dictated Date/Time: 06/22/2016 8:14 PM ULTRASOUND VENOUS DOPPLER LWR EXT BILA CLINICAL HISTORY: Leg swelling COMPARISON STUDY: No previous studies for comparison. FINDINGS: Real-time and color flow Doppler imaging were performed. Flow was seen within the femoral, popliteal and calf veins with no intraluminal thrombus demonstrated. The saphenous vein is patent. IMPRESSION: No evidence of lower extremity DVT. Electronically signed by: Sandip Montana M.D. 06/22/2016 10:59 PM Dictated Date/Time: 06/22/2016 10:58 PM Laboratory Results 06/22/16 21:10 Red Blood Count 3.17, Mean Corpuscular Volume 90.9, Mean Corpuscular Hemoglobin 29.3, Mean Corpuscular Hemoglobin Concent 32.3, Mean Platelet Volume 8.4, Neutrophils (%) (Auto) 59.7, Lymphocytes (%) (Auto) 22.9, Monocytes (%) (Auto) 14.8, Eosinophils (%) (Auto) 1.5, Basophils (%) (Auto) 0.8, Neutrophils # (Auto ) 6.00, Lymphocytes # (Auto) 2.30, Monocytes # (Auto) 1.49, Eosinophils # (Auto ) 0.15, Basophils # (Auto) 0.08 06/22/16 21:10 Test 06/22/16 21:10 06/22/16 21:15 White Blood Count 10.05 K/uL (4.8-10.8) Red Blood Count 3.17 M/uL (4.7-6.1) Hemoglobin 9.3 g/dL (14.0-18.0) Hematocrit 28.8 % (42-52) Mean Corpuscular Volume 90.9 fL (80-100) Mean Corpuscular Hemoglobin 29.3 pg (25-34) Mean Corpuscular Hemoglobin Concent 32.3 g/dl (32-36) Platelet Count 326 K/uL (130-400) Mean Platelet Volume 8.4 fL (7.4-10.4) Neutrophils (%) (Auto) 59.7 % Lymphocytes (%) (Auto) 22.9 % Monocytes (%) (Auto) 14.8 % Eosinophils (%) (Auto) 1.5 % Basophils (%) (Auto) 0.8 % Neutrophils # (Auto) 6.00 K/uL (1.4-6.5) Lymphocytes # (Auto) 2.30 K/uL (1.2-3.4) Monocytes # (Auto) 1.49 K/uL (0.11-0.59) Eosinophils # (Auto) 0.15 K/uL (0-0.5) Basophils # (Auto) 0.08 K/uL (0-0.2) RDW Standard Deviation 51.1 fL (36.4-46.3) RDW Coefficient of Variation 15.3 % (11.5-14.5) Immature Granulocyte % (Auto) 0.3 % Immature Granulocyte # (Auto) 0.03 K/uL (0.00-0.02) Prothrombin Time 17.3 SECONDS (9.0-12.0) Prothromb Time International Ratio 1.6 (0.9-1.1) Activated Partial Thromboplast Time 31.2 SECONDS (21.0-31.0) Partial Thromboplastin Ratio 1.2 Anion Gap 11.0 mmol/L (3-11) Est Creatinine Clear Calc Drug Dose 12.3 ml/min BUN/Creatinine Ratio 4.2 (10-20) Calcium Level 9.5 mg/dl (8.5-10.1) Magnesium Level 2.4 mg/dl (1.8-2.4) Total Bilirubin 0.7 mg/dl (0.2-1) Aspartate Amino Transf (AST/SGOT) 23 U/L (15-37) Alanine Aminotransferase (ALT/SGPT) 21 U/L (12-78) Alkaline Phosphatase 259 U/L (45-117) Pro-B-Type Natriuretic Peptide 9808 pg/ml (0-900) Total Protein 7.7 gm/dl (6.4-8.2) Albumin 2.8 gm/dl (3.4-5.0) Globulin 4.9 gm/dl (2.5-4.0) Albumin/Globulin Ratio 0.6 (0.9-2) Bedside D-Dimer > 450 ng/mlFEU (0-450) Laboratory results per my review. Medications Administered Medications (Trade) Dose Ordered Sig/Eliseo Route Start Time Stop Time Status Last Admin Dose Admin Diltiazem HCl (Cardizem Inj) 20 mg NOW STAT IV 06/22/16 22:57 06/22/16 22:58 DC 06/22/16 23:23 20 MG Heparin Sodium/ Dextrose (Heparin 25,000 Unit/500ml D5W) 25,000 unit STK-MED ONCE .ROUTE 06/23/16 00:19 06/23/16 00:20 DC 06/23/16 00:58 25,000 UNIT Heparin Sodium (Porcine) (Heparin Sq 5000 Unit/0.5ml) 5,000 unit STK-MED ONCE .ROUTE 06/23/16 00:19 06/23/16 00:20 DC 06/23/16 00:19 4,000 UNIT ECG Indication: SOB/dyspnea Rate (beats per minute): 89 Rhythm: normal sinus Findings: no ectopy, other (anterior T wave flattening, no PVC) Comparison ECG Date: 11-Jun-2016 Change: no significant change Change: Repeat EKG: A flutter, rate 150, no ectopy, no acute ST segment abnormality. Changes new compared to previous tracing. ED Course 1933: The patient was evaluated in room C2B. A complete history and physical examination were performed. 2257: Cardizem Inj 20 mg IV. 2305: Upon reevaluation, the patient is resting comfortably. I discussed results and treatment plan with him. He verbalizes agreement and understanding. The patient will be evaluated for further management and care. 2330: I reevaluated the patient. His heart rate is now 99. 2337: I discussed the patient's case with NANCY Bender hospitalist. The patient will be evaluated for further management. 2338: Heparin Sodium/Dextrose 1 ea IV. Medical Decision Prior records/ancillary studies reviewed. Triage Nursing notes reviewed. Additional history obtained from the family. The patient's history was concerning for respiratory difficulties. Differential diagnosis: Etiologies such as infections, reactive airway disease, pneumonia, pneumothorax , COPD, CHF, cardiac ischemia, pulmonary embolism, musculoskeletal, gastrointestinal, as well as others were entertained. The patient is a 75-year-old male who presented to the emergency department for an evaluation of chest pain and difficulty breathing. The patient was recently admitted to our facility for an infection in his right leg. The patient did not appear to have any signs of venous thromboembolic disease on venous Doppler. The patient's d-dimer was elevated. The patient was recently diagnosed with atrial fibrillation and had an episode of atrial flutter here that was treated with IV Cardizem. He was also given anticoagulation in the emergency department for atrial fibrillation and for presumed venous thrombolic disease until he could have a confirmatory test. I discussed the patient's laboratory and radiographic studies with him. I also discussed his case with the on-call [facility] hospitalist group. They've agreed to evaluate the patient in the emergency department for further management and disposition. Consults Time Called: [id number] Consulting Physician: NANCY Bender hospitalist Returned Call: [phone] I discussed the patient's case with him. The patient will be evaluated for further management. Impression Primary Impression: Atrial flutter with rapid ventricular response Additional Impressions: Chest pain Renal failure Elevated troponin Critical Care I have personally spent greater than 40 minutes of critical care time in the direct management of this patient. This includes bedside care, interpretation of diagnostic studies, and testing, discussion with consultants, patient, and family members, and other required patient management activities. This 40 minutes is in excess of all separately billable procedures. Scribe Attestation The scribe's documentation has been prepared under my direction and personally reviewed by me in its entirety. I confirm that the note above accurately reflects all work, treatment, procedures, and medical decision making performed by me. Departure Information Dispostion Being Evaluated By Hospitalist Referrals Obi Mendez M.D. (PCP) Patient Instructions My [facility] Problem Qualifiers Additional Impressions: Chest pain Chest pain type: unspecified Qualified Codes: R07.9 - Chest pain, unspecified Renal failure Renal failure chronicity: chronic Chronic kidney disease stage: on chronic dialysis Qualified Codes: N18.6 - End stage renal disease; Z99.2 - Dependence on renal dialysis
[2016-06-22 21:48] LABS: INR 1.6 (0.9-1.1); PARTIAL THROMBOPLASTIN RATIO 1.2; PROTHROMBIN TIME (PATIENT) 17.3 SECONDS (9.0-12.0)
[2016-06-22 21:55] LABS: CALCIUM 9.5 mg/dl (8.5-10.1)
[2016-06-22 22:05] LABS: ALB/GLOB RATIO 0.6 (0.9-2); BUN/CREATININE RATIO 4.2 (10-20); CREATININE 6.9 mg/dl (0.60-1.40); MAGNESIUM 2.4 mg/dl (1.8-2.4); POTASSIUM 4.7 mmol/L (3.5-5.1)
[2016-06-22] MEDS ORDERED: AMLO-110 PO (22:21)
[2016-06-22] MEDS ORDERED: ASPI81TA28 PO (22:21)
[2016-06-22] MEDS ORDERED: CHLO10CA7 PO (22:23)
[2016-06-22] MEDS ORDERED: HYDR-5688 PO ×2 (22:26→22:27)
[2016-06-22] MEDS ORDERED: INSU3INJ3 SQ (22:29)
[2016-06-22] MEDS ORDERED: CMD5 PO (22:34)
[2016-06-22] MEDS ORDERED: METR-163 PO (22:35)
[2016-06-22] MEDS ORDERED: METO50TA7 PO (22:37)
[2016-06-22] MEDS ORDERED: TPRSR50 PO ×2 (22:39→22:40)
[2016-06-22] MEDS ORDERED: LISI40TA PO (22:43)
[2016-06-22] MEDS ORDERED: DILTIAZEM HCL 5 MG/ML 5 ML VIAL IV STA (22:57)
--- NOTE | 2016-06-22 23:00 | DIAGNOSTIC IMAGING REPORT ---
ULTRASOUND VENOUS DOPPLER LWR EXT BILA CLINICAL HISTORY: Leg swelling COMPARISON STUDY: No previous studies for comparison. FINDINGS: Real-time and color flow Doppler imaging were performed. Flow was seen within the femoral, popliteal and calf veins with no intraluminal thrombus demonstrated. The saphenous vein is patent. IMPRESSION: No evidence of lower extremity DVT. Electronically signed by: Sandip Montana M.D. 06/22/2016 10:59 PM Dictated Date/Time: 06/22/2016 10:58 PM
[2016-06-23] VITALS (29 sets, daily range): BP systolic 91–157; BP diastolic 40–85; PULSE 66–138; TEMP 36.4–37; O2SAT 90–97; Ht 185.4 cm; Wt 107.2 kg
[2016-06-23] MEDS ORDERED: ACETAMINOPHEN 325 MG TAB PO PRN (00:15)
[2016-06-23] MEDS ORDERED: NITROGLYCERIN 0.4 MG SL PER TAB CHARGE SL PRN (00:15)
[2016-06-23] MEDS ORDERED: ZOLPIDEM TARTRATE 5 MG TAB PO PRN (00:15)
[2016-06-23] MEDS: HEPARIN 25000 UNIT/500 ML D5W ONE ×2 (00:19→00:58)
[2016-06-23] MEDS: HEPARIN SOD 5000 UNIT/0.5 ML CARP ONE (00:19)
[2016-06-23] MEDS ORDERED: TRAZODONE HCL 50 MG TAB PO PRN (00:30)
[2016-06-23] MEDS ORDERED: IPRATROPIUM BROMIDE HFA INHALER INH PRN (00:30)
[2016-06-23] MEDS ORDERED: HYDROCODONE/ACETAMOPHEN 5/325MG TAB PO PRN ×2 (00:30)
[2016-06-23] MEDS ORDERED: MECLIZINE HCL 25 MG TAB PO PRN (00:30)
[2016-06-23] MEDS ORDERED: ALBUT/IPRATROP 3MG/0.5MG NEB 3 ML VIAL INH PRN (00:30)
[2016-06-23] MEDS ORDERED: NITROGLYCERIN 0.4 MG SL PER TAB CHARGE ONE (00:36)
[2016-06-23] MEDS ORDERED: DEXTROSE 50% 50 ML SYR IV PRN (00:45)
[2016-06-23] MEDS ORDERED: GLUCOSE 40% GEL 15 GM TUBE PO PRN (00:45)
[2016-06-23] MEDS ORDERED: VANCOMYCIN INJ 750 MG in SODIUM CHLORIDE 0.9% 250ML 250 ML IV SCH ×2 (00:45→22:00)
[2016-06-23] MEDS ORDERED: GLUCAGON FOR INJ 1 MG VIAL SQ PRN (00:45)
[2016-06-23] MEDS ORDERED: LEVALBUTEROL/IPRATROPIUM NEB INH PRN (00:45)
[2016-06-23] MEDS ORDERED: GLUCOSE 10 TABS/TUBE PO PRN (00:45)
[2016-06-23] MEDS ORDERED: DILTIAZEM BOLUS / DRIP IV STA (00:53)
[2016-06-23 01:17] LABS: CKMB/CK RATIO 1.4 (0-3.0)
[2016-06-23] MEDS ORDERED: DILTIAZEM HCL 5 MG/ML 5 ML VIAL IV SCH (01:45)
[2016-06-23] MEDS ORDERED: LEVOFLOXACIN / D5W 500 MG in PREMIXED IN D5W 100 ML IV STA (01:54)
[2016-06-23] MEDS ORDERED: LEVOFLOXACIN CONSULT ACTIVE PRN (02:00)
[2016-06-23] MEDS ORDERED: VANCOMYCIN CONSULT ACTIVE PRN (02:00)
[2016-06-23] MEDS ORDERED: IPRATROPIUM BROMIDE NEB SOLN 0.02% 2.5 ML VIAL INH PRN (02:15)
[2016-06-23] MEDS ORDERED: LEVALBUTEROL 1.25MG/0.5ML NEB INH PRN (02:15)
--- NOTE | 2016-06-23 02:37 | History and Physical ---
History & Physical Date & Time of Service: June 23, 2016 at 02:19. The patient was examined on 06/22/2016. Chief Complaint: Atrial Flutter W/Rvr; Diabetic Ulcer, Rt Foot Primary Care Physician: Obi Mendez M.D. History of Present Illness Source: patient, caregiver The patient is a 75-year-old male who presents emergency department with complaint of persistent shortness of breath and chest pain varying with breathing and movement. He did have some vomiting yesterday, and chills today. He is status post hospitalization from June 02 through June 20 where he was treated for pneumonia and right diabetic foot osteomyelitis. He gets dialysis 3 times per week, and was discharged on vancomycin 750 mg IV to be administered after dialysis, and levofloxacin 500 mg by mouth daily. He had just received a prescription for warfarin for atrial fibrillation, but the prescription was not filled yet. 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 Status: Chronic Surgical Problems: (1) Status post arthroscopic knee surgery Status: Chronic Family History FH: diabetes mellitus AUNT FH: stroke GRANDMOTHER Heart disease Hypertension Kidney disease Social History Smoking Status: Former Smoker Smokeless Tobacco Use: No Alcohol Use: none Drug Use: none Marital Status: Housing status: lives with family Occupational Status: retired Immunizations History of Influenza Vaccine: Yes History of Tetanus Vaccine?: Unknown History of Pneumococcal: Yes Pneumococcal Date: Dec 22, 2007 History of Hepatitis B Vaccine: Unknown Multi-Drug Resistant Organisms History of MDRO: No Allergies Coded Allergies: No Known Allergies (Verified , 06/02/16) Home Medications Scheduled Allopurinol (Zyloprim), 100 MG PO HS Amlodipine (Norvasc), 10 MG PO QAM Aspirin (Aspirin Ec), 81 MG PO QAM Atorvastatin (Atorvastatin Calcium), 20 MG PO DAILY Calcium Acetate (Phosphate Bin (Phoslo 667 Mg), 667 MG PO TID Chlordiazepoxide (Librium), 10 MG PO BID Cholecalciferol (Vitamin D3), 2,000 UNITS PO DAILY Furosemide (Furosemide), 40 MG PO DAILY Insulin Aspart (Novolog Penfill), 60 UNITS SQ BID Insulin Detemir (Levemir Flextouch), 20 UNITS SQ HS Lisinopril (Zestril), 40 MG PO QAM Metoprolol Succ (Toprol Xl) (Toprol-Xl), 50 MG PO QPM Metoprolol Succinate (Metoprolol Succinate ER), 75 MG PO QAM Metoprolol Succinate (Metoprolol Succinate ER), 50 MG PO QPM Metronidazole (Flagyl), 500 MG PO BID Ranitidine Hcl (Zantac), 300 MG PO DAILY Sodium Bicarbonate (Sodium Bicarbonate), 650 MG PO BID Tamsulosin HCl (Tamsulosin HCl), 0.4 MG PO HS Vancomycin HCl (Vancomycin HCl), 750 MG IV UD Warfarin Sod (Coumadin), 5 MG PO DAILY Scheduled PRN Hydrocodone/Acetaminophen 5MG/325MG ([place] 5MG/325MG), 1 TAB PO Q6H PRN for Pain Hydrocodone/Acetaminophen 5MG/325MG ([place] 5MG/325MG), 2 TABLETS PO Q6H PRN for Pain Ipratropium [place] (Atrovent Hfa), 2 PUFFS INH QID PRN for Shortness of Breath Ipratropium-Albuterol (Duoneb), 1 TREATMENT INH Q4H PRN for Shortness of Breath Meclizine HCl (Meclizine HCl), 25 MG PO Q4H PRN for Dizziness or Vertigo Trazodone HCl (Trazodone HCl), 150 MG PO HS PRN for Sleep Review of Systems Constitutional: + chills, + weakness, No fatigue, No fever, No sweats, No weight loss Eyes: No diplopia, No discharge, No eye pain, No problem reported, No redness, No worsening of vision ENT: No dental problems, No hearing loss, No nasal symptoms, No problem reported, No sore throat, No tinnitus, No trouble swallowing, No unusual epistaxis Respiratory: + dyspnea on exertion, + shortness of breath, No cough, No dyspnea at rest, No hemoptysis, No sputum, No wheezing Cardiovascular: + chest pain, No PND, No claudication, No edema, No orthopnea, No palpitations Abdomen: + nausea, + vomiting, No GI bleeding, No constipation, No diarrhea, No pain Musculoskeletal: No calf pain, No joint pain, No muscle pain, No problem reported, No swelling Genitourinary - Male: No dysuria, No hematuria, No impotence, No lesions, No penile discharge, No problem reported, No urinary frequency, No urinary hesitancy, No urinary incontinence, No urinary retention, No urinary urgency Neurologic: No balance problems, No memory loss, No numbness/tingling, No paralysis, No problem reported, No vertigo, No weakness Psychiatric: No anhedonism, No anxiety, No depression symptoms, No insomnia, No problem reported, No substance abuse Endocrine: No excessive thirst, No excessive urination, No fatigue, No problem reported Hematologic / Lymphatic: No abnormal bleeding/bruising, No clotting problems, No night sweats, No problem reported, No swollen lymph nodes Integumentary: No bleeding, No color change, No itch, No new/changing skin lesions, No problem reported, No rash Allergic / Immunologic: No environmental allergies, No food allergies, No frequent infections, No hives, No pet sensitivities, No poor healing, No problem reported, No prolonged convalescence, No seasonal allergies Physical Exam Vital Signs Date Time Temp Pulse Resp B/P Pulse Ox O2 Delivery O2 Flow Rate FiO2 06/23/16 01:14 118 18 108/77 93 Room Air 06/22/16 23:23 150 18 177/102 93 Room Air 06/22/16 23:15 151 06/22/16 22:10 150 18 164/99 95 Nasal Cannula 2.0 06/22/16 21:13 108 22 149/96 94 Nasal Cannula 2.0 06/22/16 21:00 155 06/22/16 20:14 85 06/22/16 20:11 94 Room Air 06/22/16 20:11 94 Room Air 06/22/16 19:04 36.8 95 20 168/80 94 Room Air General Appearance: WD/WN, no apparent distress Head: normocephalic, atraumatic Eyes: normal inspection, PERRL, EOMI, sclerae normal ENT: normal ENT inspection, hearing grossly normal, pharynx normal Neck: supple, no adenopathy, thyroid normal, no JVD, no carotid bruits, trachea midline Respiratory/Chest: chest non-tender, no respiratory distress (coarse breath sounds), no accessory muscle use, + pertinent finding (mildly coarse breath sounds, with a few crackles at the bases bilaterally.) Cardiovascular: no gallop, no JVD, no murmur, normal peripheral pulses, + tachycardia, + pertinent finding (3+ pitting edema in bilateral lower extremities. Right foot with ulceration along the fifth metatarsal with mild surrounding erythema and warmth.) Abdomen/GI: normal bowel sounds, non tender, soft, no organomegaly, no pulsatile mass Back: normal inspection, no CVA tenderness, no muscle spasm, normal range of motion Extremities/Musculoskelatal: no calf tenderness, normal capillary refill, non- tender, + pedal edema (3+ pretibial and pedal edema) Neurologic/Psych: land checker II-XII nml as tested, alert, normal mood/affect, oriented x 3 Skin: warm/dry, + pertinent finding (ulceration along the right fifth MTP with moderate erythema surrounding) Lymphatic: no adenopathy Diagnostics Laboratory Results Results Past 24 Hours Test 06/22/16 21:10 06/22/16 21:15 06/23/16 00:35 Range/Units White Blood Count 10.05 4.8-10.8 K/uL Red Blood Count 3.17 4.7-6.1 M/uL Hemoglobin 9.3 14.0-18.0 g/dL Hematocrit 28.8 42-52 % Mean Corpuscular Volume 90.9 80-100 fL Mean Corpuscular Hemoglobin 29.3 25-34 pg Mean Corpuscular Hemoglobin Concent 32.3 32-36 g/dl Platelet Count 326 130-400 K/uL Mean Platelet Volume 8.4 7.4-10.4 fL Neutrophils (%) (Auto) 59.7 % Lymphocytes (%) (Auto) 22.9 % Monocytes (%) (Auto) 14.8 % Eosinophils (%) (Auto) 1.5 % Basophils (%) (Auto) 0.8 % Neutrophils # (Auto) 6.00 1.4-6.5 K/uL Lymphocytes # (Auto) 2.30 1.2-3.4 K/uL Monocytes # (Auto) 1.49 0.11-0.59 K/uL Eosinophils # (Auto) 0.15 0-0.5 K/uL Basophils # (Auto) 0.08 0-0.2 K/uL RDW Standard Deviation 51.1 36.4-46.3 fL RDW Coefficient of Variation 15.3 11.5-14.5 % Immature Granulocyte % (Auto) 0.3 % Immature Granulocyte # (Auto) 0.03 0.00-0.02 K/uL Prothrombin Time 17.3 9.0-12.0 SECONDS Prothromb Time International Ratio 1.6 0.9-1.1 Activated Partial Thromboplast Time 31.2 21.0-31.0 SECONDS Partial Thromboplastin Ratio 1.2 Sodium Level 132 136-145 mmol/L Potassium Level 4.7 3.5-5.1 mmol/L Chloride Level 93 98-107 mmol/L Carbon Dioxide Level 28 21-32 mmol/L Anion Gap 11.0 3-11 mmol/L Blood Urea Nitrogen 29 7-18 mg/dl Creatinine 6.90 0.60-1.40 mg/dl Est Creatinine Clear Calc Drug Dose 12.3 ml/min Estimated GFR () 8.3 Estimated GFR (Non- 7.1 BUN/Creatinine Ratio 4.2 10-20 Random Glucose 204 70-99 mg/dl Calcium Level 9.5 8.5-10.1 mg/dl Magnesium Level 2.4 1.8-2.4 mg/dl Total Bilirubin 0.7 0.2-1 mg/dl Aspartate Amino Transf (AST/SGOT) 23 15-37 U/L Alanine Aminotransferase (ALT/SGPT) 21 12-78 U/L Alkaline Phosphatase 259 45-117 U/L Total Creatine Kinase 81 39-308 U/L Creatine Kinase MB 1.1 0.5-3.6 ng/ml Creatine Kinase MB Ratio 1.4 0-3.0 Troponin I 0.057 0-0.045 ng/ml Pro-B-Type Natriuretic Peptide 9808 0-900 pg/ml Total Protein 7.7 6.4-8.2 gm/dl Albumin 2.8 3.4-5.0 gm/dl Globulin 4.9 2.5-4.0 gm/dl Albumin/Globulin Ratio 0.6 0.9-2 Bedside D-Dimer > 450 0-450 ng/mlFEU Diagnostic Radiology Patient Name: GUILLERMO MARTINEZ Unit Number: [id number] Dictated: [birth year] 2257 Transcribed: 06/22/162257 ARG Printed Date/Time: [~ rep prt dt]/[~ rep prt tm] [~ rep ct labl] - [~ rep ct ivnm] [facility] [place] [address] Dictated: 06/22/162257 Transcribed: 06/22/162257 ARG Printed Date/Time: [~ rep prt dt]/[~ rep prt tm] [~ rep ct labl] - [~ rep ct ivnm] ULTRASOUND VENOUS DOPPLER LWR EXT BILA CLINICAL HISTORY: Leg swelling COMPARISON STUDY: No previous studies for comparison. FINDINGS: Real-time and color flow Doppler imaging were performed. Flow was seen within the femoral, popliteal and calf veins with no intraluminal thrombus demonstrated. The saphenous vein is patent. IMPRESSION: No evidence of lower extremity DVT. Electronically signed by: Sandip Montana M.D. 06/22/2016 10:59 PM Dictated Date/Time: 06/22/2016 10:58 PM The status of this report is Signed. Draft = Not yet reviewed or approved by Radiologist. Signed = Reviewed and approved by Radiologist. <AttendingPhy></AttendingPhy> <FamilyPhy>Obi Mendez M.D.</FamilyPhy > <PrimaryPhy>Obi Mendez M.D.</PrimaryPhy> <UnitNumber>[id number]</ UnitNumber> <VisitNumber>[id number]</VisitNumber> <PatientName>GUILLERMO MARTINEZ</ PatientName> <DateOfBirth>1940</DateOfBirth> <Location>[facility]</Location> < ServiceDate>06/22/16</ServiceDate> <MNE>ESINDI</MNE> <OrderingPhy>Mj Prieto D.O.</OrderingPhy> <OrderingPhyMNE>f rep ord dr jaramillo</OrderingPhyMNE> <DictatingPhyMNE>f rep dict dr jaramillo</DictatingPhyMNE> <CCListMNE>f rep ct roberthe</ CCListMNE> <AdmittingPhyMNE>f pt admit dr jaramillo</AdmittingPhyMNE> <AttendingPhyMNE >f pt attend dr jaramillo</AttendingPhyMNE> <ConsultingPhyMNE>f pt consult dr jaramillo</ConsultingPhyMNE> <FamilyPhyMNE>f pt fam dr jaramillo</FamilyPhyMNE> <OtherPhyMNE>f pt other dr jaramillo</OtherPhyMNE> < PrimaryPhyMNE>f pt prim care dr jaramillo</PrimaryPhyMNE> <ReferringPhyMNE>f pt referring dr jaramillo</ReferringPhyMNE> Patient Name: GUILLERMO MARTINEZ Unit Number: [id number] Dictated: 06/22/162013 Transcribed: 06/22/162013 ARG Printed Date/Time: [~ rep prt dt]/[~ rep prt tm] [~ rep ct labl] - [~ rep ct ivnm] [facility] [place] [address] Dictated: 06/22/162013 Transcribed: 06/22/162013 ARG Printed Date/Time: [~ rep prt dt]/[~ rep prt tm] [~ rep ct labl] - [~ rep ct ivnm] CLINICAL HISTORY: Respiratory distress. Shortness of breath. COMPARISON STUDY: 06/03/2016 FINDINGS: The heart is enlarged. There is elevation interstitium consistent with congestive failure/fluid overload. There is no lobar consolidation. Trace pleural effusions are suspected.[ IMPRESSION: Cardiomegaly and radiographic evidence of mild congestive failure/fluid overload. Trace pleural effusions. Electronically signed by: Sandip Montana M.D. 06/22/2016 8:15 PM Dictated Date/Time: 06/22/2016 8:14 PM The status of this report is Signed. Draft = Not yet reviewed or approved by Radiologist. Signed = Reviewed and approved by Radiologist. <AttendingPhy></AttendingPhy> <FamilyPhy>Obi Mendez M.D.</FamilyPhy > <PrimaryPhy>Obi Mendez M.D.</PrimaryPhy> <UnitNumber>[id number]</ UnitNumber> <VisitNumber>[id number]</VisitNumber> <PatientName>GUILLERMO MARTINEZ</ PatientName> <DateOfBirth>1940</DateOfBirth> <Location>[facility]</Location> < ServiceDate>06/22/16</ServiceDate> <MNE>ESINDI</MNE> <OrderingPhy>Mj Prieto D.O.</OrderingPhy> <OrderingPhyMNE>f rep ord dr jaramillo</OrderingPhyMNE> <DictatingPhyMNE>f rep dict dr jaramillo</DictatingPhyMNE> <CCListMNE>f rep ct ella</ CCListMNE> <AdmittingPhyMNE>f pt admit dr jaramillo</AdmittingPhyMNE> <AttendingPhyMNE >f pt attend dr jaramillo</AttendingPhyMNE> <ConsultingPhyMNE>f pt consult dr jaramillo</ConsultingPhyMNE> <FamilyPhyMNE>f pt fam dr jaramillo</FamilyPhyMNE> <OtherPhyMNE>f pt other dr jaramillo</OtherPhyMNE> < PrimaryPhyMNE>f pt prim care dr jaramillo</PrimaryPhyMNE> <ReferringPhyMNE>f pt referring dr jaramillo</ReferringPhyMNE> EKG EKG #1 shows SVT at 151 bpm, with old septal infarct, no acute ST-T changes. EKG #2 shows atrial flutter with RVR, old septal infarct. Impression Assessment and Plan Acute pleuritic precordial chest pain--patient will be admitted to the telemetry unit for serial cardiac enzymes, continued cardiac rhythm monitoring and a 2-D echocardiogram with Dopplers. In the differential includes pulmonary embolism, atrial flutter with RVR, esophageal spasm. The patient will be scheduled for a VQ scan in the morning to assess for possible embolism. Atrial flutter with RVR the patient did get a dosing of Cardizem 20 mg by IV by the ED staff, with a subsequent drop in heart rate from 150s to the low 100s. We'll continue metoprolol succinate ER 50 mg by mouth every evening and 75 mg by mouth every morning, and furosemide 40 mg by mouth daily. Discontinue amlodipine 10 mg by mouth every morning. Continue enteric-coated aspirin 81 mg by mouth every morning, lisinopril 40 mg by mouth every morning. We'll start on Cardizem 10 mg IV, then start Cardizem drip at 5 mg per hour with 5 mg per hour increases every 30 minutes to maximum of 15 mg per hour. We'll place on heparin IV tonight, and family will check with insurance the form of oral anticoagulation covered by their insurance. Of note, he did get a prescription for warfarin 5 mg but is not begun to take it yet. We'll consult cardiology. Right diabetic foot infection--continue the vancomycin 750 mg IV after dialysis , and Levaquin 500 milligrams will be changed to IV daily. Continue Flagyl 500 mg by mouth twice a day. The patient reports that he has his first appointment with infectious disease and wound care for later on this week. We'll consult both services to see patient while in hospital. Diabetes mellitus--continue Levemir 20 units subcutaneous at bedtime, hold NovoLog 6 units subcutaneous twice a day, and place on Accu-Cheks before meals and at bedtime with NovoLog coverage. End-stage renal disease on hemodialysis--consult nephrology, next dialysis date is tomorrow, June 23. Continue sodium bicarbonate 6 and 50 mg by mouth twice a day, PhosLo 667 mg by mouth 3 times a day. Hypercholesterolemia--continue atorvastatin 20 mg by mouth daily. Gout--continue allopurinol 100 mg by mouth at bedtime. GERD--continue ranitidine 3 mg by mouth daily. BPH--continue tamsulosin 0.4 mg by mouth at bedtime. Level of Care Telemetry Advanced Directives Existing Advance Directive: No Existing Living Will: No Existing Power of Filter Cleaner: No Resuscitation Status FULL RESUSCITATION VTE Prophylaxis VTE Risk Assessment Done? Y/N: Yes Risk Level: Moderate Given or contraindicated: Other Anticoagulation (heparin IV standard dose with weight-based protocol.), SCD's
[2016-06-23] MEDS: DILTIAZEM HCL INJ 125 MG in DEXTROSE 5% 100ML IV PRN ×4 (02:49→15:15)
[2016-06-23] MEDS: CALCIUM ACETATE 667MG GELCAP PO SCH ×3 (07:40→21:24)
[2016-06-23] MEDS: FUROSEMIDE 40 MG TAB PO SCH (09:26)
[2016-06-23] MEDS: ASPIRIN 81 MG ECTAB PO SCH (09:26)
[2016-06-23] MEDS: METRONIDAZOLE 500 MG TAB PO SCH ×2 (09:26→21:25)
[2016-06-23] MEDS: LISINOPRIL 40 MG TAB PO SCH (09:27)
[2016-06-23] MEDS: METOPROLOL SUCC 50MG EXT REL TAB PO SCH (09:27)
[2016-06-23] MEDS: CHOLECALCIFEROL 1000 INTER.UNIT TAB PO SCH (09:28)
[2016-06-23] MEDS: ATORVASTATIN 20 MG TAB PO SCH (09:28)
[2016-06-23] MEDS: AMLODIPINE BESYLATE 5 MG TAB PO SCH (09:28)
[2016-06-23] MEDS: SODIUM BICARBONATE 650 MG TAB PO SCH ×2 (09:28→21:26)
[2016-06-23] MEDS: CHLORDIAZEPOXIDE 10 MG CAP PO SCH ×2 (09:34→21:42)
[2016-06-23] MEDS: INSULIN ASPART 100 UNITS/ML 3 ML PEN SC SCH ×4 (09:38→21:23)
--- NOTE | 2016-06-23 10:25 | Medical Consult ---
Consultation Date of Consultation: June 23, 2016. Attending Physician: Moess Bess M.D. Reason for Consultation: Diabetic right foot wound History of Present Illness Patient is a 75-year-old male presents to the emergency department with complaints of persistent shortness of breath, right-sided chest pain, and dyspnea on exertion. The patient was recently admitted to [facility] with right lateral foot osteomyelitis and abscess. The patient is discharged home with IV vancomycin and p.o. Flagyl. The patient states that he did receive 1 dose of IV vancomycin at dialysis on Tuesday after which time he started feeling absolutely horrible. He states that he could Barely walk out of there. He feels that it likely was from the medication. He had been on IV during his hospitalization previously as well and had tolerated this medication throughout his hospitalization. Patient states that his right foot has overall been doing well, and his daughter has been changing the dressing at home in between when the home nurse changes it. The patient's white blood cell count on admission was 10.05. His BNP was noted to be 9808. A MRSA nasal swab was negative. Urine culture is pending. Venous Doppler of the bilateral lower extremities showed no evidence of DVT. A chest x-ray showed cardiomegaly and mild congestive failure/fluid overload along with trace pleural effusions. The patient is anticipating to have a V/Q scan later today. Past Medical/Surgical History Medical Problems: (1) Atrial flutter with rapid ventricular response Status: Acute (2) Cellulitis of right foot Status: Acute (3) Chest pain Status: Acute (4) Elevated troponin Status: Acute (5) Renal failure Status: Acute (6) Sepsis Status: Acute Medical Problems: (1) CKD (chronic kidney disease) stage 3, GFR 30-59 ml/min (2) Diabetes mellitus, type II (3) Diabetic ulcer of right foot (4) End-stage renal disease on hemodialysis (5) Gout (6) History of adenomatous polyp of colon (7) History of Clostridium difficile infection (8) Hypertension (9) Monoclonal gammopathy (10) Unspecified open wound, right foot, sequela Surgical Problems: (1) Status post arthroscopic knee surgery Family History FH: diabetes mellitus AUNT FH: stroke GRANDMOTHER Heart disease Hypertension Kidney disease Noncontributory Social History Smoking Status: Former Smoker Smokeless Tobacco Use: No Alcohol Use: none Drug Use: none Marital Status: Housing Status: lives with family Occupation Status: retired Allergies Coded Allergies: No Known Allergies (Verified , 06/02/16) Home Medications Reported Home Medications Medications Dose Route/Sig Max Daily Dose Days Date Category Dose Instructions Zestril (Lisinopril) 40 Mg Tab 40 Mg PO QAM 06/22/16 Reported Metoprolol Succinate ER (Metoprolol Succinate) 50 Mg Tabcr 50 Mg PO QPM 06/22/16 Reported Metoprolol Succinate ER (Metoprolol Succinate) 50 Mg Tabcr 75 Mg PO QAM 06/22/16 Reported Toprol-Xl (Metoprolol Succinate) 50 Mg Tabcr 50 Mg PO QPM 06/22/16 Reported Flagyl (Metronidazole) 500 Mg Tab 500 Mg PO BID 06/22/16 Reported Coumadin (Warfarin Sod) 5 Mg Tab 5 Mg PO DAILY 06/22/16 Reported Levemir Flextouch (Insulin Detemir) 100 Unit/Ml Inj 20 Units SQ HS 06/22/16 Reported [place] 5MG/325MG (Acetaminophen/Hydrocodone Bitart) Tab 2 Tablets PO Q6H PRN 06/22/16 Reported PRN PAIN [place] 5MG/325MG (Acetaminophen/Hydrocodone Bitart) Tab 1 Tab PO Q6H PRN 06/22/16 Reported PRN PAIN Librium (Chlordiazepoxide) 10 Mg Cap 10 Mg PO BID 06/22/16 Reported Aspirin Ec (Aspirin) 81 Mg Tab 81 Mg PO QAM 06/22/16 Reported Norvasc (Amlodipine Besylate) 5 Mg Tab 10 Mg PO QAM 06/22/16 Reported Vancomycin HCl 100 Mg/Ml Inj 750 Mg IV UD 06/17/16 Rx after hemodialysis Trazodone HCl 150 Mg Tab 150 Mg PO HS PRN 06/02/16 Reported Tamsulosin HCl 0.4 Mg Cap 0.4 Mg PO HS 06/02/16 Reported Atorvastatin Calcium (Atorvastatin) 20 Mg Tab 20 Mg PO DAILY 06/02/16 Reported Meclizine HCl 25 Mg Tab 25 Mg PO Q4H PRN 06/02/16 Reported Furosemide 40 Mg Tab 40 Mg PO DAILY 06/02/16 Reported Phoslo 667 Mg (Calcium Acetate (Phosphate Bin) 667 Mg Cap 667 Mg PO TID 06/02/16 Reported Zantac (Ranitidine Hcl) 300 Mg Tab 300 Mg PO DAILY 06/02/16 Reported Novolog Penfill (Insulin Aspart) 100 Unit/Ml Inj 60 Units SQ BID 06/02/16 Reported SLIDING SCALE Vitamin D3 (Cholecalciferol) 2,000 Unit Cap 2,000 Units PO DAILY 06/02/16 Reported Zyloprim (Allopurinol) 100 Mg Tab 100 Mg PO HS 30 12/28/15 Reported Sodium Bicarbonate 650 Mg Tab 650 Mg PO BID 09/30/15 Reported Duoneb (Ipratropium-Albuterol) 3 Ml Nebu 1 Treatment INH Q4H PRN 09/30/15 Reported Atrovent Hfa (Ipratropium [place]) 200 Puffs/3400 Mcg Aers 2 Puffs INH QID PRN 09/30/15 Reported Current Inpatient Medications Current Inpatient Medications Medications (Trade) Dose Ordered Sig/Eliseo Route Start Time Stop Time Status Last Admin Dose Admin Acetaminophen (Tylenol Tab) 650 mg Q4H PRN PO 06/23/16 00:15 07/23/16 00:14 Zolpidem Tartrate (Ambien Tab) 5 mg HSZ PRN PO 06/23/16 00:15 07/23/16 00:14 Nitroglycerin (Nitrostat Tab) 0.4 mg UD PRN SL 06/23/16 00:15 07/23/16 00:14 Allopurinol (Zyloprim Tab) 100 mg HS PO 06/23/16 21:00 07/23/16 20:59 Amlodipine Besylate (Norvasc Tab) 10 mg QAM PO 06/23/16 09:00 07/23/16 08:59 06/23/16 09:28 10 MG Aspirin (Ecotrin Tab) 81 mg QAM PO 06/23/16 09:00 07/23/16 08:59 06/23/16 09:26 81 MG Atorvastatin Calcium (Lipitor Tab) 20 mg DAILY PO 06/23/16 09:00 07/23/16 08:59 06/23/16 09:28 20 MG Calcium Acetate (Phoslo Cap) 667 mg TIDM PO 06/23/16 07:30 07/23/16 07:29 06/23/16 07:40 667 MG Chlordiazepoxide (Librium Cap) 10 mg BID PO 06/23/16 09:00 07/23/16 08:59 06/23/16 09:34 10 MG Furosemide (Lasix Tab) 40 mg DAILY PO 06/23/16 09:00 07/23/16 08:59 06/23/16 09:26 40 MG Acetaminophen/ Hydrocodone Bitart ([place] 5/325 Tab) 1 tab Q6H PRN PO 06/23/16 00:30 07/07/16 00:29 Acetaminophen/ Hydrocodone Bitart ([place] 5/325 Tab) 2 tab Q6H PRN PO 06/23/16 00:30 07/07/16 00:29 06/23/16 02:47 2 TAB Insulin Detemir (Levemir Flexpen/ FlexTouch) 20 unit HS SQ 06/23/16 21:00 07/23/16 20:59 Ipratropium [place] (Atrovent Hfa Inhaler) 2 puffs QID PRN INH 06/23/16 00:30 07/23/16 00:29 Lisinopril (Zestril Tab) 40 mg QAM PO 06/23/16 09:00 07/23/16 08:59 06/23/16 09:27 40 MG Meclizine HCl (Antivert Tab) 25 mg Q4H PRN PO 06/23/16 00:30 07/23/16 00:29 Metoprolol Succinate (Toprol Xl Tab) 50 mg QPM PO 06/23/16 21:00 07/23/16 20:59 Metoprolol Succinate (Toprol Xl Tab) 75 mg QAM PO 06/23/16 09:00 07/23/16 08:59 06/23/16 09:27 75 MG Metronidazole (Flagyl Tab) 500 mg BID PO 06/23/16 09:00 07/03/16 08:59 06/23/16 09:26 500 MG Sodium Bicarbonate (Sodium Bicarbonate Tab) 650 mg BID PO 06/23/16 09:00 07/23/16 08:59 06/23/16 09:28 650 MG Tamsulosin HCl (Flomax Cap) 0.4 mg HS PO 06/23/16 21:00 07/23/16 20:59 Cholecalciferol (Vitamin D Tab) 2,000 inter.unit QAM PO 06/23/16 09:00 07/23/16 08:59 06/23/16 09:28 2,000 INTER.UNIT Ranitidine HCl (zANTac TAB) 300 mg HS PO 06/23/16 21:00 07/23/16 20:59 Trazodone HCl (Desyrel Tab) 150 mg HS PRN PO 06/23/16 00:30 07/23/16 00:29 Ondansetron HCl (Zofran Inj) 4 mg Q6H PRN IV 06/23/16 00:45 07/23/16 00:44 Insulin Aspart (novoLOG ASPART) SLIDING SCALE If C... ACHS SC 06/23/16 07:00 07/23/16 06:59 06/23/16 09:38 11 UNITS Glucose (Glucose 40% Gel) UD PRN PO 06/23/16 00:45 07/23/16 00:44 Glucose (Glucose Chew Tab) 1 tabs UD PRN PO 06/23/16 00:45 07/23/16 00:44 Dextrose (Dextrose 50% 50ML Syringe) 50 ml UD PRN IV 06/23/16 00:45 07/23/16 00:44 Glucagon 1 mg 1 mg UD PRN SQ 06/23/16 00:45 07/23/16 00:44 Diltiazem HCl/ Dextrose (Cardizem Inj/D5 100ml) 125 ml @ 0 mls/hr Q0M PRN IV 06/23/16 01:45 07/23/16 01:44 06/23/16 04:38 15 MLS/HR Vancomycin HCl (Consult) 1 ea UD PRN N/A 06/23/16 02:00 07/23/16 01:59 Levofloxacin (Consult) 1 ea UD PRN N/A 06/23/16 02:00 07/23/16 01:59 Ipratropium [place] (Atrovent 0.02% 0.5MG/2.5ML Neb) 0.5 mg Q2H PRN INH 06/23/16 02:15 07/23/16 02:14 Levalbuterol 1.25 mg 1.25 mg Q2H PRN INH 06/23/16 02:15 07/23/16 02:14 Levofloxacin/Prmx (Levaquin / D5W/ Premixed D5W) 50 ml @ 50 mls/hr Q48H IV 06/25/16 02:00 07/05/16 01:59 Review of Systems Constitutional: + fatigue, + sweats, No fever Eyes: No worsening of vision ENT: No hearing loss Respiratory: + dyspnea on exertion, + shortness of breath, No cough Cardiovascular: + chest pain (right sided) Abdomen: No nausea, No pain, No vomiting Musculoskeletal: + joint pain (right shoulder) Genitourinary - Male: No dysuria, No hematuria Integumentary: No new/changing skin lesions, No rash Physical Exam Date Time Temp Pulse Resp B/P Pulse Ox O2 Delivery O2 Flow Rate FiO2 06/23/16 08:00 Room Air 06/23/16 07:26 36.7 67 18 103/62 97 Room Air 06/23/16 04:26 66 134/72 06/23/16 04:17 Room Air 06/23/16 04:11 89 126/77 06/23/16 03:46 36.6 125 18 119/64 92 Room Air 06/23/16 03:23 104 131/85 06/23/16 03:00 101 121/71 06/23/16 02:45 99 133/74 06/23/16 01:30 36.8 138 18 150/84 90 Room Air 06/23/16 01:14 118 18 108/77 93 Room Air 06/22/16 23:23 150 18 177/102 93 Room Air 06/22/16 23:15 151 06/22/16 22:10 150 18 164/99 95 Nasal Cannula 2.0 06/22/16 21:13 108 22 149/96 94 Nasal Cannula 2.0 06/22/16 21:00 155 06/22/16 20:14 85 06/22/16 20:11 94 Room Air 06/22/16 20:11 94 Room Air 06/22/16 19:04 36.8 95 20 168/80 94 Room Air General Appearance: no apparent distress, + obese Head: normocephalic, atraumatic Eyes: normal inspection, sclerae normal ENT: hearing grossly normal Neck: supple, trachea midline Respiratory/Chest: chest non-tender, normal breath sounds, no respiratory distress, no accessory muscle use, + crackles (mild bilateral bases) Cardiovascular: regular rate, rhythm Abdomen/GI: normal bowel sounds, non tender, soft Back: normal inspection Extremities/Musculoskelatal: normal inspection, no pedal edema, + calf tenderness (mild tenderness of the bilateral lower extremities) Neurologic/Psych: alert, normal mood/affect, oriented x 3 Skin: normal color, warm/dry, no rash Laboratory Results CHEST ONE VIEW PORTABLE CLINICAL HISTORY: Respiratory distress. Shortness of breath. COMPARISON STUDY: 06/03/2016 FINDINGS: The heart is enlarged. There is elevation interstitium consistent with congestive failure/fluid overload. There is no lobar consolidation. Trace pleural effusions are suspected.[ IMPRESSION: Cardiomegaly and radiographic evidence of mild congestive failure/fluid overload. Trace pleural effusions. Item Value Date Time MRSA DNA Surveillance Screen - Final Complete 06/23/16 0250 Nasal Specimen Negative for MRSA by DNA Probe Last 24 Hours Test 06/22/16 21:10 06/22/16 21:15 06/23/16 00:35 06/23/16 04:44 White Blood Count 10.05 K/uL Red Blood Count 3.17 M/uL Hemoglobin 9.3 g/dL Hematocrit 28.8 % Mean Corpuscular Volume 90.9 fL Mean Corpuscular Hemoglobin 29.3 pg Mean Corpuscular Hemoglobin Concent 32.3 g/dl Platelet Count 326 K/uL Mean Platelet Volume 8.4 fL Neutrophils (%) (Auto) 59.7 % Lymphocytes (%) (Auto) 22.9 % Monocytes (%) (Auto) 14.8 % Eosinophils (%) (Auto) 1.5 % Basophils (%) (Auto) 0.8 % Neutrophils # (Auto) 6.00 K/uL Lymphocytes # (Auto) 2.30 K/uL Monocytes # (Auto) 1.49 K/uL Eosinophils # (Auto) 0.15 K/uL Basophils # (Auto) 0.08 K/uL RDW Standard Deviation 51.1 fL RDW Coefficient of Variation 15.3 % Immature Granulocyte % (Auto) 0.3 % Immature Granulocyte # (Auto) 0.03 K/uL Prothrombin Time 17.3 SECONDS Prothromb Time International Ratio 1.6 Activated Partial Thromboplast Time 31.2 SECONDS Partial Thromboplastin Ratio 1.2 Sodium Level 132 mmol/L Potassium Level 4.7 mmol/L Chloride Level 93 mmol/L Carbon Dioxide Level 28 mmol/L Anion Gap 11.0 mmol/L Blood Urea Nitrogen 29 mg/dl Creatinine 6.90 mg/dl Est Creatinine Clear Calc Drug Dose 12.3 ml/min Estimated GFR () 8.3 Estimated GFR (Non- 7.1 BUN/Creatinine Ratio 4.2 Random Glucose 204 mg/dl Calcium Level 9.5 mg/dl Magnesium Level 2.4 mg/dl Total Bilirubin 0.7 mg/dl Aspartate Amino Transf (AST/SGOT) 23 U/L Alanine Aminotransferase (ALT/SGPT) 21 U/L Alkaline Phosphatase 259 U/L Total Creatine Kinase 81 U/L Creatine Kinase MB 1.1 ng/ml Creatine Kinase MB Ratio 1.4 Troponin I 0.057 ng/ml Pro-B-Type Natriuretic Peptide 9808 pg/ml Total Protein 7.7 gm/dl Albumin 2.8 gm/dl Globulin 4.9 gm/dl Albumin/Globulin Ratio 0.6 Bedside D-Dimer > 450 ng/mlFEU Test 06/23/16 06:35 06/23/16 08:35 Bedside Glucose 232 mg/dl Creatine Kinase MB Ratio Assessment & Plan Patient with right 5th distal metatarsal abscess and osteomyelitis s/p resection of infected portion of bone with chronic ulceration and surrounding cellulitis now with new onset SOB and chest pain with deep breath. Patient previously grew MSSA, Enterococcus, and Bacteroides from his wound cultures. He was discharged on IV Vancomycin, and recommend continuing Vancomycin due to previous Daptomycin LUANNE of 4 for Enterococcus. He is also on Levaquin at this time, which is appropriate pending further workup. Patient anticipating V/Q scan of the chest this morning. Will await further workup. Patient may be a good candidate for IV Dal[place]avancin. We will follow. PROVIDER ADDENDUM: Pt. examined and reviewed with Ms. Linder. Agree with above assessment.
--- NOTE | 2016-06-23 10:36 | Nephrology Consultation ---
Nephrology Consultation Date & Providers Date of Consultation: June 23, 2016. Primary Care Provider: Obi Mendez M.D. Referring Provider: Reason for Consultation Provide HD for this patient w/ ESRD admitted with atrial fibrillation w/ RVR and dyspnea History of Present Illness Mr. Carmichael is a 75 year old white male who is seen at the request of Dr. Bess to provide inpatient HD and assist w/ his medical management. 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 He has been on HD since 08/29 and dialyzes MWF at the [facility] dialysis unit (HD Rx: 4 hr F-180 2K 2.5Ca EDW 112 15g needles Epogen 2000 units Hectrol 1 mcg). His medical history includes AODM, HTN, PVD, Gout, IgM [place] monoclonal gammopathy. Mr. Carmichael was hospitalized 06/02 - 06/18 for surgical debridement of a nonhealing ulcer on the lateral plantar surface of his right foot. He was found to have an abscess and osteomyelitis. Cultures were + for MSSA. He was treated w/ IV Vancomycin and required amputation of the head of the 5th metatarsal. Mr. 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 He required angiography w/ CHEMICALS DISTILLER of the venous limb 06/14/16. He also developed new onset atrial flutter and was started on anticoagulation therapy. Mr. Carmichael reports that he did not get his Warfarin prescription filled. Since discharge he has had progressive fatigue, palpitations, dyspnea and pleurisy. He presented to the ED last evening and was found to have atrial fibrillation w/ RVR. He has been admitted to the PCU for IV Heparin and Cardizem. Cardiology consultation and echocardiogram have been ordered. Patient is scheduled for V/ Q scan this afternoon. He will require HD following his V/Q study. I have called his HD unit and obtained his chronic dialysis orders which are listed above. Past Medical/Surgical History Medical: # ESRD on HD MWF at [facility] # HTN # PVD # IgM [place] monoclonal gammopathy # Gout Surgical: # Osteomyelitis of R foot 5th metatarsal s/p partial amputation Allergies Coded Allergies: No Known Allergies (Verified , 06/02/16) Inpatient Medications Current Inpatient Medications Medications (Trade) Dose Ordered Sig/Eliseo Route Start Time Stop Time Status Last Admin Dose Admin Acetaminophen (Tylenol Tab) 650 mg Q4H PRN PO 06/23/16 00:15 07/23/16 00:14 Zolpidem Tartrate (Ambien Tab) 5 mg HSZ PRN PO 06/23/16 00:15 07/23/16 00:14 Nitroglycerin (Nitrostat Tab) 0.4 mg UD PRN SL 06/23/16 00:15 07/23/16 00:14 Allopurinol (Zyloprim Tab) 100 mg HS PO 06/23/16 21:00 07/23/16 20:59 Amlodipine Besylate (Norvasc Tab) 10 mg QAM PO 06/23/16 09:00 07/23/16 08:59 06/23/16 09:28 10 MG Aspirin (Ecotrin Tab) 81 mg QAM PO 06/23/16 09:00 07/23/16 08:59 06/23/16 09:26 81 MG Atorvastatin Calcium (Lipitor Tab) 20 mg DAILY PO 06/23/16 09:00 07/23/16 08:59 06/23/16 09:28 20 MG Calcium Acetate ([place]oslo Cap) 667 mg TIDM PO 06/23/16 07:30 07/23/16 07:29 06/23/16 07:40 667 MG Chlordiazepoxide (Librium Cap) 10 mg BID PO 06/23/16 09:00 07/23/16 08:59 06/23/16 09:34 10 MG Furosemide (Lasix Tab) 40 mg DAILY PO 06/23/16 09:00 07/23/16 08:59 06/23/16 09:26 40 MG Acetaminophen/ Hydrocodone Bitart ([place] 5/325 Tab) 1 tab Q6H PRN PO 06/23/16 00:30 07/07/16 00:29 Acetaminophen/ Hydrocodone Bitart ([place] 5/325 Tab) 2 tab Q6H PRN PO 06/23/16 00:30 07/07/16 00:29 06/23/16 02:47 2 TAB Insulin Detemir (Levemir Flexpen/ FlexTouch) 20 unit HS SQ 06/23/16 21:00 07/23/16 20:59 Ipratropium [place] (Atrovent Hfa Inhaler) 2 puffs QID PRN INH 06/23/16 00:30 07/23/16 00:29 Lisinopril (Zestril Tab) 40 mg QAM PO 06/23/16 09:00 07/23/16 08:59 06/23/16 09:27 40 MG Meclizine HCl (Antivert Tab) 25 mg Q4H PRN PO 06/23/16 00:30 07/23/16 00:29 Metoprolol Succinate (Toprol Xl Tab) 50 mg QPM PO 06/23/16 21:00 07/23/16 20:59 Metoprolol Succinate (Toprol Xl Tab) 75 mg QAM PO 06/23/16 09:00 07/23/16 08:59 06/23/16 09:27 75 MG Metronidazole (Flagyl Tab) 500 mg BID PO 06/23/16 09:00 07/03/16 08:59 06/23/16 09:26 500 MG Sodium Bicarbonate (Sodium Bicarbonate Tab) 650 mg BID PO 06/23/16 09:00 07/23/16 08:59 06/23/16 09:28 650 MG Tamsulosin HCl (Flomax Cap) 0.4 mg HS PO 06/23/16 21:00 07/23/16 20:59 Cholecalciferol (Vitamin D Tab) 2,000 inter.unit QAM PO 06/23/16 09:00 07/23/16 08:59 06/23/16 09:28 2,000 INTER.UNIT Ranitidine HCl (zANTac TAB) 300 mg HS PO 06/23/16 21:00 07/23/16 20:59 Trazodone HCl (Desyrel Tab) 150 mg HS PRN PO 06/23/16 00:30 07/23/16 00:29 Ondansetron HCl (Zofran Inj) 4 mg Q6H PRN IV 06/23/16 00:45 07/23/16 00:44 Insulin Aspart (novoLOG ASPART) SLIDING SCALE If C... ACHS SC 06/23/16 07:00 07/23/16 06:59 06/23/16 09:38 11 UNITS Glucose (Glucose 40% Gel) UD PRN PO 06/23/16 00:45 07/23/16 00:44 Glucose (Glucose Chew Tab) 1 tabs UD PRN PO 06/23/16 00:45 07/23/16 00:44 Dextrose (Dextrose 50% 50ML Syringe) 50 ml UD PRN IV 06/23/16 00:45 07/23/16 00:44 Glucagon 1 mg 1 mg UD PRN SQ 06/23/16 00:45 07/23/16 00:44 Diltiazem HCl/ Dextrose (Cardizem Inj/D5 100ml) 125 ml @ 0 mls/hr Q0M PRN IV 06/23/16 01:45 07/23/16 01:44 06/23/16 04:38 15 MLS/HR Vancomycin HCl (Consult) 1 ea UD PRN N/A 06/23/16 02:00 07/23/16 01:59 Levofloxacin (Consult) 1 ea UD PRN N/A 06/23/16 02:00 07/23/16 01:59 Ipratropium [place] (Atrovent 0.02% 0.5MG/2.5ML Neb) 0.5 mg Q2H PRN INH 06/23/16 02:15 07/23/16 02:14 Levalbuterol 1.25 mg 1.25 mg Q2H PRN INH 06/23/16 02:15 07/23/16 02:14 Levofloxacin/Prmx (Levaquin / D5W/ Premixed D5W) 50 ml @ 50 mls/hr Q48H IV 06/25/16 02:00 07/05/16 01:59 Family History FH: diabetes mellitus AUNT FH: stroke GRANDMOTHER Heart disease Hypertension Kidney disease Negative for CKD / ESRD Social History Smoking Status: Former Smoker Smokeless Tobacco Use: No Alcohol Use: none Drug Use: none Marital Status: Housing Status: lives with family Occupation: retired . Retired. Former smoker Review of Systems Constitutional: No fever Respiratory: No cough Cardiovascular: No chest pain Abdomen: No nausea, No pain, No vomiting Genitourinary - Male: No dysuria, No hematuria Integumentary: No rash A complete review of systems was performed. Pertinent positives are noted above. All other systems are negative. Physical Exam Date Time Temp Pulse Resp B/P Pulse Ox O2 Delivery O2 Flow Rate FiO2 06/23/16 08:00 Room Air 06/23/16 07:26 36.7 67 18 103/62 97 Room Air 06/23/16 04:26 66 134/72 06/23/16 04:17 Room Air 06/23/16 04:11 89 126/77 06/23/16 03:46 36.6 125 18 119/64 92 Room Air 06/23/16 03:23 104 131/85 06/23/16 03:00 101 121/71 06/23/16 02:45 99 133/74 06/23/16 01:30 36.8 138 18 150/84 90 Room Air 06/23/16 01:14 118 18 108/77 93 Room Air 06/22/16 23:23 150 18 177/102 93 Room Air 06/22/16 23:15 151 06/22/16 22:10 150 18 164/99 95 Nasal Cannula 2.0 06/22/16 21:13 108 22 149/96 94 Nasal Cannula 2.0 06/22/16 21:00 155 06/22/16 20:14 85 06/22/16 20:11 94 Room Air 06/22/16 20:11 94 Room Air 06/22/16 19:04 36.8 95 20 168/80 94 Room Air General Appearance: no apparent distress Head: normocephalic, atraumatic Eyes: PERRL, EOMI Neck: no adenopathy Respiratory/Chest: lungs clear Cardiovascular: + tachycardia, + irregularly irregular Abdomen/GI: normal bowel sounds, non tender, soft Back: no CVA tenderness Extremities/Musculoskelatal: no calf tenderness, no pedal edema Neurologic/Psych: alert, oriented x 3 Skin: warm/dry Laboratory Results CXR film reviewed: Mild CHF LE doppler report: No DVT Tele strip: A. fib w/ RVR HR 150 bpm Last 24 Hours Test 06/22/16 21:10 06/22/16 21:15 06/23/16 00:35 06/23/16 04:44 White Blood Count 10.05 K/uL Red Blood Count 3.17 M/uL Hemoglobin 9.3 g/dL Hematocrit 28.8 % Mean Corpuscular Volume 90.9 fL Mean Corpuscular Hemoglobin 29.3 pg Mean Corpuscular Hemoglobin Concent 32.3 g/dl Platelet Count 326 K/uL Mean Platelet Volume 8.4 fL Neutrophils (%) (Auto) 59.7 % Lymphocytes (%) (Auto) 22.9 % Monocytes (%) (Auto) 14.8 % Eosinophils (%) (Auto) 1.5 % Basophils (%) (Auto) 0.8 % Neutrophils # (Auto) 6.00 K/uL Lymphocytes # (Auto) 2.30 K/uL Monocytes # (Auto) 1.49 K/uL Eosinophils # (Auto) 0.15 K/uL Basophils # (Auto) 0.08 K/uL RDW Standard Deviation 51.1 fL RDW Coefficient of Variation 15.3 % Immature Granulocyte % (Auto) 0.3 % Immature Granulocyte # (Auto) 0.03 K/uL Prothrombin Time 17.3 SECONDS Prothromb Time International Ratio 1.6 Activated Partial Thromboplast Time 31.2 SECONDS Partial Thromboplastin Ratio 1.2 Sodium Level 132 mmol/L Potassium Level 4.7 mmol/L Chloride Level 93 mmol/L Carbon Dioxide Level 28 mmol/L Anion Gap 11.0 mmol/L Blood Urea Nitrogen 29 mg/dl Creatinine 6.90 mg/dl Est Creatinine Clear Calc Drug Dose 12.3 ml/min Estimated GFR () 8.3 Estimated GFR (Non- 7.1 BUN/Creatinine Ratio 4.2 Random Glucose 204 mg/dl Calcium Level 9.5 mg/dl Magnesium Level 2.4 mg/dl Total Bilirubin 0.7 mg/dl Aspartate Amino Transf (AST/SGOT) 23 U/L Alanine Aminotransferase (ALT/SGPT) 21 U/L Alkaline Phosphatase 259 U/L Total Creatine Kinase 81 U/L Creatine Kinase MB 1.1 ng/ml Creatine Kinase MB Ratio 1.4 Troponin I 0.057 ng/ml Pro-B-Type Natriuretic Peptide 9808 pg/ml Total Protein 7.7 gm/dl Albumin 2.8 gm/dl Globulin 4.9 gm/dl Albumin/Globulin Ratio 0.6 Bedside D-Dimer > 450 ng/mlFEU Test 06/23/16 06:35 06/23/16 08:35 Bedside Glucose 232 mg/dl Creatine Kinase MB Ratio Impression (1) End-stage renal disease on hemodialysis (2) Atrial flutter with rapid ventricular response (3) Osteomyelitis (4) Diabetes mellitus, type II (5) Hypertension (6) Monoclonal gammopathy Mr. Carmichael was admitted for evaluation of dyspnea and pleurisy. He has atrial fibrillation w/ RVR. He has been admitted for anticoagulation and rate control. Cardiology evaluation, echocardiogram, V/Q studies are currently pending. Patient has ESRD and requires HD MWF. He required CHEMICALS DISTILLER of the venous limb of his AVF 06/14/16. He was recently hospitalized for debridement of right foot abscess and resection of infected 5th metatarsal head. Recommendations END STAGE RENAL DISEASE: -- [facility] HD contacted by telephone this am and chronic HD prescription obtained -- Will provide HD today. Orders entered into EMR and HD RN notified -- HD diet -- Protect left upper arm AVF HYPERTENSION: -- Blood pressure is currently acceptable. Patient has been started on Diltiazem for rate control -- Antihypertensive agents as per Cardiology. Question changing Amlodipine to Diltiazem ANEMIA: -- Will provide Epogen w/ HD today -- Will check iron stores w/ next lab draw ID: -- Antibiotics as per ID senior consultant OTHER: -- Await results of V/Q scan, Echocardiogram and Cardiology input
[2016-06-23] MEDS ORDERED: EPOETIN ALFA 10,000 UNITS/ML VIAL IV. SCH (11:30)
[2016-06-23 11:48] LABS: URINE APPEARANCE CLEAR (CLEAR); URINE BILIRUBIN NEG (NEG); URINE COLOR YELLOW; URINE EPITHELIAL CELL AUTO >30 /lpf (0-5); URINE NITRITE NEG (NEG); URINE PH 8.5 (4.5-7.5); URINE SPECIFIC GRAVITY 1.016 (1.000-1.030); UROBILINOGEN NEG (NEG); ZZUR CULT IF INDIC CLEAN CATCH YES
[2016-06-23 11:50] LABS: MANUAL MICROSCOPIC REQUIRED? NO; REVIEW REQ? YES
[2016-06-23 11:51] LABS: SULFASALICYLIC ACID POS (NEG)
[2016-06-23] MEDS: ONDANSETRON INJ 2 MG/ML 2 ML VIAL IV PRN (11:58)
[2016-06-23] MEDS ORDERED: PARICALCITOL 5 MCG/ML VIAL (ZEMPLAR) IV. SCH (12:30)
[2016-06-23] MEDS ORDERED: LORAZEPAM 2 MG/ML 1 ML VIAL ONE (14:03)
--- NOTE | 2016-06-23 14:19 | CARDIOLOGY CONSULTATION ---
DATE OF CONSULTATION: 06/23/2016 REFERRING PHYSICIAN: Moses Bess MD CHIEF COMPLAINT: Shortness of breath. HISTORY OF PRESENT ILLNESS: Mr. Bre Carmichael is a 75-year-old gentleman who was recently admitted to [facility] with an infected toe. The patient had multiple issues during his recent hospitalization one of which was the development of atrial flutter. During this hospitalization, the patient was started on rate control therapy and spontaneously cardioversion. The patient underwent home last Tuesday, but yesterday, noticed that he was having more weakness. In the Emergency Room, the patient to be reported increasing shortness of breath but then during the interview today, he does not recall this being a significant issue. He also states that he had an element of pain all over his body, but primarily in the upper chest and back; this was a feeling as if his shoulder blades were being whipped off. The patient states that with any movement or deep inspiration the pain worsened. He also complains of "being weak as a kitten." The patient was not acutely aware of any rapid heartbeats. He is not aware of any palpitations. However, this morning, he does report feeling somewhat better, but still weak. He denies shortness of breath currently. PAST MEDICAL HISTORY: Significant for end-stage renal disease, currently on dialysis; not atrial flutter, previously rate controlled and paroxysmal; colon cancer; peripheral vascular disease including carotid artery stenosis; chronic obstructive pulmonary disease; diabetes mellitus type 2; depression; hyperlipidemia; gout; hypertension and history of cellulitis and osteomyelitis. PAST SURGICAL HISTORY: Includes debridement of the right foot infection during his last admission, cholecystectomy, left knee surgery, rotator cuff repair, vasectomy and tonsillectomy. FAMILY HISTORY: Significant for diabetes but no premature coronary disease. SOCIAL HISTORY: The patient lives with his daughter currently. He has a remote history of tobacco use but currently does not smoke. He denies significant alcohol use. MEDICAL ALLERGIES: No known medical allergies. MEDICATIONS: At the time of discharge included levofloxacin, vancomycin, warfarin, amlodipine, chlordiazepoxide, insulin, lisinopril, metoprolol, metronidazole, allopurinol, aspirin, atorvastatin, calcium, furosemide, meclizine, ranitidine, tamsulosin and a variety of supplements. REVIEW OF SYSTEMS: A complete 10-system review of systems was performed and the pertinent positives are noted in the history of present illness, the remainder being negative. The patient did report persistent right foot discomfort that appears to be improving. 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 He states his appetite has been fair. He has no difficulty eating currently. He has rare episodes of dizziness that are transient in nature. It appears that the patient has not been compliant with his medical therapy and just yesterday received the prescriptions recommended at discharge. PHYSICAL EXAMINATION: GENERAL: The patient is a pleasant individual, in no acute distress. He answered all questions appropriately. He was alert and oriented. VITAL SIGNS: His current vital signs included blood pressure 103/62 with a pulse of 67. HEENT: Sclerae are anicteric. Pupils are equal, reactive to light and accommodation. Extraocular movements were intact. Palpation of submandibular region did not reveal any significant lymphadenopathy. The carotids are palpable bilaterally. I do not appreciate any bruits on auscultation. Thyroid was not enlarged. There is no evidence of jugular venous distention. LUNGS: Auscultation of both lung ochoa revealed occasional crackle at the left base but the right was clear. He had normal respiratory effort without use of accessory muscles. There was no expiratory wheezing. CARDIAC: Revealed him to be in an irregular rhythm. He did have a systolic ejection murmur which was crescendo in nature. PMI was not markedly displaced. EXTREMITIES: Evaluation of both wrists revealed radial pulses that were equal in intensity. There is no evidence of cyanosis or clubbing. He had a fistula in the left forearm with palpable thrill. Evaluation of lower extremities revealed the right foot to be bandaged. The left foot had some trophic changes. I do not appreciate any significant rashes on examination today. LABORATORY AND IMAGING STUDIES: Obtained since admission included a white cell count of 10, hemoglobin of 9.3, and a platelet count of 326. Sodium is 132, potassium is 4.7, BUN was 29, and creatinine was 6.9. Cardiac troponin was just over the limit of normal at 0.057. A 12-lead EKG was also obtained at the time of admission and this revealed the patient to be in atrial flutter with a rapid ventricular rate. Review of his telemetry reveals a period of sinus rhythm followed by atrial flutter and now a rhythm more consistent with atrial fibrillation. Single view chest x-ray was obtained at the time of admission. This revealed evidence of mild congestive heart failure and trace pleural effusions. Doppler of the lower extremities was also obtained at the time of admission which did not reveal any evidence of DVT. ASSESSMENT AND PLAN: 1. Atrial flutter. This appears to be the presenting rhythm. The patient did have a rapid ventricular response. It is unclear whether his presenting rhythm was sinus or atrial flutter, but he certainly developed atrial flutter with a rapid ventricular response in the Emergency Room. The patient was started on diltiazem infusion with some improvement in his overall rate control. As mentioned earlier, there was a period of sinus rhythm on telemetry monitoring. More recently, the patient appears to be in a rhythm consistent with atrial fibrillation. Overall, rates currently on an effusion are improved. It was unclear at the time of his last admission whether the atrial flutter represented a consequence of his acute illness. At this point, it seems that this will be a recurrent issue. Unfortunately, the patient did not take his medications for 2 days leading up to this admission and it is unclear whether he would have adequate rate control, went back on medical therapy. During his last admission was sample single agent metoprolol and he seemed to have reasonable rates prior to conversion. At this point, I would advocate reinitiation of his metoprolol and wheezing of the diltiazem as his rhythm tolerates. If the patient continues to have symptomatic episodes of atrial fibrillation or flutter with associated high rates, we could consider antiarrhythmic therapy or rhythm control stretching. With respect to anticoagulation, the patient was to be started on warfarin, but once again did not obtain his prescriptions. Given his renal dysfunction, this appears to be the best agent for anticoagulation. He would not require aspirin in addition to warfarin in this setting. 2. Congestive heart failure. The patient did have some evidence of pulmonary vascular congestion on his x-ray and reportedly some dyspnea, although not confirmed by the patient. His volume is control primarily by dialysis. He has preserved left ventricular systolic function. He may have had an element of diastolic dysfunction when converting to an atrial arrhythmia. His lungs examination is fairly benign currently and he is scheduled for dialysis today. 3. Chest pain. The patient's chest pain certainly sounds positional and pleuritic in nature. He had similar symptoms during his last hospitalization. He only has slightly elevated cardiac biomarkers likely due to his chronic renal disease. At this point, I would not advocate any additional testing for coronary disease in the absence of new or worsening symptoms. MTDD
--- NOTE | 2016-06-23 14:42 | Progress Note ---
Subjective Date of Service: June 23, 2016. Subjective Pt evaluation today including: conversation w/ patient, physical exam, chart review, lab review, review of studies, review of inpatient medication list Problem List Medical Problems: (1) Atrial flutter with rapid ventricular response Status: Acute (2) Cellulitis of right foot Status: Acute (3) Chest pain Status: Acute (4) Elevated troponin Status: Acute (5) Renal failure Status: Acute (6) Sepsis Status: Acute Review of Systems Constitutional: + fatigue, No chills, No fever, No problem reported, No see HPI , No sweats, No weakness, No weight loss Eyes: No diplopia, No discharge, No eye pain, No problem reported, No redness, No see HPI, No worsening of vision ENT: No dental problems, No hearing loss, No nasal symptoms, No problem reported, No see HPI, No sore throat, No tinnitus, No trouble swallowing, No unusual epistaxis Respiratory: + dyspnea at rest, + dyspnea on exertion, + shortness of breath, No cough, No hemoptysis, No problem reported, No see HPI, No sputum, No wheezing Cardiac: No PND, No claudication, No edema, No orthopnea, No palpitations, No problem reported, No see HPI Abdomen: + pain, No GI bleeding, No constipation, No diarrhea, No nausea, No problem reported, No see HPI, No vomiting Musculoskeletal: No calf pain, No joint pain, No muscle pain, No problem reported, No see HPI, No swelling Male : No dysuria, No hematuria, No incontinence, No nocturia more than once/ night, No problem reported, No see HPI, No sexual dysfunction, No slowing stream , No urinary frequency Neurologic: No balance problems, No memory loss, No numbness/tingling, No paralysis, No problem reported, No see HPI, No vertigo, No weakness Psychiatric: No anhedonism, No anxiety, No depression symptoms, No insomnia, No problem reported, No see HPI, No substance abuse Heme: No abnormal bleeding/bruising, No clotting problems, No night sweats, No problem reported, No see HPI, No swollen lymph nodes Endo: No excessive thirst, No excessive urination, No fatigue, No problem reported, No see HPI Skin: No bleeding, No color change, No itch, No new/changing skin lesions, No problem reported, No rash, No see HPI Medications Current Inpatient Medications Medications (Trade) Dose Ordered Sig/Eliseo Route Start Time Stop Time Status Last Admin Dose Admin Acetaminophen (Tylenol Tab) 650 mg Q4H PRN PO 06/23/16 00:15 07/23/16 00:14 Zolpidem Tartrate (Ambien Tab) 5 mg HSZ PRN PO 06/23/16 00:15 07/23/16 00:14 Nitroglycerin (Nitrostat Tab) 0.4 mg UD PRN SL 06/23/16 00:15 07/23/16 00:14 Allopurinol (Zyloprim Tab) 100 mg HS PO 06/23/16 21:00 07/23/16 20:59 Amlodipine Besylate (Norvasc Tab) 10 mg QAM PO 06/23/16 09:00 07/23/16 08:59 06/23/16 09:28 10 MG Aspirin (Ecotrin Tab) 81 mg QAM PO 06/23/16 09:00 07/23/16 08:59 06/23/16 09:26 81 MG Atorvastatin Calcium (Lipitor Tab) 20 mg DAILY PO 06/23/16 09:00 07/23/16 08:59 06/23/16 09:28 20 MG Calcium Acetate (Phoslo Cap) 667 mg TIDM PO 06/23/16 07:30 07/23/16 07:29 06/23/16 07:40 667 MG Chlordiazepoxide (Librium Cap) 10 mg BID PO 06/23/16 09:00 07/23/16 08:59 06/23/16 09:34 10 MG Furosemide (Lasix Tab) 40 mg DAILY PO 06/23/16 09:00 07/23/16 08:59 06/23/16 09:26 40 MG Acetaminophen/ Hydrocodone Bitart ([place] 5/325 Tab) 1 tab Q6H PRN PO 06/23/16 00:30 07/07/16 00:29 Acetaminophen/ Hydrocodone Bitart ([place] 5/325 Tab) 2 tab Q6H PRN PO 06/23/16 00:30 07/07/16 00:29 06/23/16 02:47 2 TAB Insulin Detemir (Levemir Flexpen/ FlexTouch) 20 unit HS SQ 06/23/16 21:00 07/23/16 20:59 Ipratropium [place] (Atrovent Hfa Inhaler) 2 puffs QID PRN INH 06/23/16 00:30 07/23/16 00:29 Lisinopril (Zestril Tab) 40 mg QAM PO 06/23/16 09:00 07/23/16 08:59 06/23/16 09:27 40 MG Meclizine HCl (Antivert Tab) 25 mg Q4H PRN PO 06/23/16 00:30 07/23/16 00:29 Metoprolol Succinate (Toprol Xl Tab) 50 mg QPM PO 06/23/16 21:00 07/23/16 20:59 Metoprolol Succinate (Toprol Xl Tab) 75 mg QAM PO 06/23/16 09:00 07/23/16 08:59 06/23/16 09:27 75 MG Metronidazole (Flagyl Tab) 500 mg BID PO 06/23/16 09:00 07/03/16 08:59 06/23/16 09:26 500 MG Sodium Bicarbonate (Sodium Bicarbonate Tab) 650 mg BID PO 06/23/16 09:00 07/23/16 08:59 06/23/16 09:28 650 MG Tamsulosin HCl (Flomax Cap) 0.4 mg HS PO 06/23/16 21:00 07/23/16 20:59 Cholecalciferol (Vitamin D Tab) 2,000 inter.unit QAM PO 06/23/16 09:00 07/23/16 08:59 06/23/16 09:28 2,000 INTER.UNIT Ranitidine HCl (zANTac TAB) 300 mg HS PO 06/23/16 21:00 07/23/16 20:59 Trazodone HCl (Desyrel Tab) 150 mg HS PRN PO 06/23/16 00:30 07/23/16 00:29 Ondansetron HCl (Zofran Inj) 4 mg Q6H PRN IV 06/23/16 00:45 07/23/16 00:44 06/23/16 11:58 4 MG Insulin Aspart (novoLOG ASPART) SLIDING SCALE If C... ACHS SC 06/23/16 07:00 07/23/16 06:59 06/23/16 09:38 11 UNITS Glucose (Glucose 40% Gel) UD PRN PO 06/23/16 00:45 07/23/16 00:44 Glucose (Glucose Chew Tab) 1 tabs UD PRN PO 06/23/16 00:45 07/23/16 00:44 Dextrose (Dextrose 50% 50ML Syringe) 50 ml UD PRN IV 06/23/16 00:45 07/23/16 00:44 Glucagon 1 mg 1 mg UD PRN SQ 06/23/16 00:45 07/23/16 00:44 Diltiazem HCl/ Dextrose (Cardizem Inj/D5 100ml) 125 ml @ 0 mls/hr Q0M PRN IV 06/23/16 01:45 07/23/16 01:44 06/23/16 04:38 15 MLS/HR Vancomycin HCl (Consult) 1 ea UD PRN N/A 06/23/16 02:00 07/23/16 01:59 Levofloxacin (Consult) 1 ea UD PRN N/A 06/23/16 02:00 07/23/16 01:59 Ipratropium [place] (Atrovent 0.02% 0.5MG/2.5ML Neb) 0.5 mg Q2H PRN INH 06/23/16 02:15 07/23/16 02:14 Levalbuterol 1.25 mg 1.25 mg Q2H PRN INH 06/23/16 02:15 07/23/16 02:14 Levofloxacin/Prmx (Levaquin / D5W/ Premixed D5W) 50 ml @ 50 mls/hr Q48H IV 06/25/16 02:00 07/05/16 01:59 Epoetin Vini (Procrit Inj) 10,000 units TODAY@1130 IV. 06/23/16 11:30 06/23/16 23:59 Paricalcitol (Zemplar Inj) 3 mcg TODAY@1230 IV. 06/23/16 12:30 06/23/16 23:59 Heparin Sodium (Porcine) (No Heparin In Dialysis) 1 ea TODAY@1130 N/A 06/23/16 11:30 06/23/16 23:59 Objective Vital Signs Date Time Temp Pulse Resp B/P Pulse Ox O2 Delivery O2 Flow Rate FiO2 06/23/16 12:00 Room Air 06/23/16 11:17 36.6 70 20 157/80 96 Room Air 06/23/16 08:00 Room Air 06/23/16 07:26 36.7 67 18 103/62 97 Room Air 06/23/16 04:26 66 134/72 06/23/16 04:17 Room Air 06/23/16 04:11 89 126/77 06/23/16 03:46 36.6 125 18 119/64 92 Room Air 06/23/16 03:23 104 131/85 06/23/16 03:00 101 121/71 06/23/16 02:45 99 133/74 06/23/16 01:30 36.8 138 18 150/84 90 Room Air 06/23/16 01:14 118 18 108/77 93 Room Air 06/22/16 23:23 150 18 177/102 93 Room Air 06/22/16 23:15 151 06/22/16 22:10 150 18 164/99 95 Nasal Cannula 2.0 06/22/16 21:13 108 22 149/96 94 Nasal Cannula 2.0 06/22/16 21:00 155 06/22/16 20:14 85 06/22/16 20:11 94 Room Air 06/22/16 20:11 94 Room Air 06/22/16 19:04 36.8 95 20 168/80 94 Room Air Physical Exam General Appearance: no apparent distress Eyes: normal inspection, EOMI ENT: normal ENT inspection, hearing grossly normal Neck: supple Respiratory/Chest: chest non-tender, lungs clear, normal breath sounds, no respiratory distress, no accessory muscle use Cardiovascular: regular rate, rhythm, no edema, no gallop, no JVD, no murmur Abdomen: normal bowel sounds, + distended, + tenderness Extremities: normal range of motion, + pertinent finding (right foot wraped, underneath cellulitis S/P right 5th distal metatarsal as per notes (I did not unwrap it)) Neurologic/Psychiatric: sfdc consultant II-XII nml as tested, no motor/sensory deficits, alert, oriented x 3 Skin: normal color, warm/dry, + rash Laboratory Results Last 24 Hours Test 06/22/16 21:10 06/22/16 21:15 06/23/16 00:35 06/23/16 06:35 White Blood Count 10.05 K/uL Red Blood Count 3.17 M/uL Hemoglobin 9.3 g/dL Hematocrit 28.8 % Mean Corpuscular Volume 90.9 fL Mean Corpuscular Hemoglobin 29.3 pg Mean Corpuscular Hemoglobin Concent 32.3 g/dl Platelet Count 326 K/uL Mean Platelet Volume 8.4 fL Neutrophils (%) (Auto) 59.7 % Lymphocytes (%) (Auto) 22.9 % Monocytes (%) (Auto) 14.8 % Eosinophils (%) (Auto) 1.5 % Basophils (%) (Auto) 0.8 % Neutrophils # (Auto) 6.00 K/uL Lymphocytes # (Auto) 2.30 K/uL Monocytes # (Auto) 1.49 K/uL Eosinophils # (Auto) 0.15 K/uL Basophils # (Auto) 0.08 K/uL RDW Standard Deviation 51.1 fL RDW Coefficient of Variation 15.3 % Immature Granulocyte % (Auto) 0.3 % Immature Granulocyte # (Auto) 0.03 K/uL Prothrombin Time 17.3 SECONDS Prothromb Time International Ratio 1.6 Activated Partial Thromboplast Time 31.2 SECONDS Partial Thromboplastin Ratio 1.2 Sodium Level 132 mmol/L Potassium Level 4.7 mmol/L Chloride Level 93 mmol/L Carbon Dioxide Level 28 mmol/L Anion Gap 11.0 mmol/L Blood Urea Nitrogen 29 mg/dl Creatinine 6.90 mg/dl Est Creatinine Clear Calc Drug Dose 12.3 ml/min Estimated GFR () 8.3 Estimated GFR (Non- 7.1 BUN/Creatinine Ratio 4.2 Random Glucose 204 mg/dl Calcium Level 9.5 mg/dl Magnesium Level 2.4 mg/dl Total Bilirubin 0.7 mg/dl Aspartate Amino Transf (AST/SGOT) 23 U/L Alanine Aminotransferase (ALT/SGPT) 21 U/L Alkaline Phosphatase 259 U/L Total Creatine Kinase 81 U/L Creatine Kinase MB 1.1 ng/ml Creatine Kinase MB Ratio 1.4 Troponin I 0.057 ng/ml Pro-B-Type Natriuretic Peptide 9808 pg/ml Total Protein 7.7 gm/dl Albumin 2.8 gm/dl Globulin 4.9 gm/dl Albumin/Globulin Ratio 0.6 Bedside D-Dimer > 450 ng/mlFEU Urine Color YELLOW Urine Appearance CLEAR Urine pH 8.5 Urine Specific [place] 1.016 Urine Protein 1+ Urine Glucose (UA) 2+ Urine Ketones TRACE Urine Occult Blood 2+ Urine Nitrite NEG Urine Bilirubin NEG Urine Urobilinogen NEG Urine Leukocyte Esterase TRACE Urine WBC (Auto) 10-30 /hpf Urine RBC (Auto) 5-10 /hpf Urine Hyaline Casts (Auto) 5-10 /lpf Urine Epithelial Cells (Auto) >30 /lpf Urine Bacteria (Auto) NEG Urine Renal Epithelial Cells /lpf Bedside Glucose 232 mg/dl Test 06/23/16 08:35 06/23/16 11:05 06/23/16 11:17 06/23/16 13:30 Creatine Kinase MB Ratio Transferrin % Saturation % Bedside Glucose 229 mg/dl Assessment and Plan 75 years old man with DM, HTN, ESRD and right 5th distal metatarsal abscess and osteomyelitis s/p partial resection presented with acute onset SOB, palpitation secondary to Afib RVR, generalized weakness and atypical pleuritic chest pain Acute pleuritic precordial chest pain V/Q scan R/O PE cardiology consult appreciated Atrial flutter with RVR currently rate controlled, replace amlodipine with cardizem, continue B [place] continue coumadin (low INR) heparin is on hold by staff because he refused labs Right diabetic foot infection/ osteomyelitis--continue the vancomycin and Levaquin Continue Flagyl 500 mg by mouth twice a day. Consult ID wound care consult Diabetes mellitus- continue insulin, tight diabetic control End-stage renal disease on hemodialysis--consult nephrology, HD inpatient Hypercholesterolemia--continue atorvastatin 20 mg by mouth daily. Gout--continue allopurinol 100 mg by mouth at bedtime. GERD--continue ranitidine 3 mg by mouth daily. BPH--continue tamsulosin 0.4 mg by mouth at bedtime. Epigastric pain, pepcid IV daily
[2016-06-23] MEDS ORDERED: NURSING VERBAL MED ORDER ONE (14:45)
--- NOTE | 2016-06-23 15:10 | DIAGNOSTIC IMAGING REPORT ---
LUNG IMAGING VQ HISTORY: Atypical chest pain, tachycardia TECHNIQUE: Immediately following the inhalation of 30.6 mCi of technetium 99 M DTPA for the ventilation scan and intravenous administration of 5.5 mCi of technetium 99 M MAA for the perfusion scan, anterior, posterior, oblique, and lateral views of the chest were performed. COMPARISON STUDY: Chest 06/22/2016. Chest CT 06/07/2016. FINDINGS: Prominence of the cardiac silhouette and blunting of the posterior costophrenic sulci on the perfusion scan. There is a single large defect within the right upper lobe which appears to be matched. This likely corresponds to the opacity seen on the prior chest CT. No additional perfusion defects identified within the lungs. IMPRESSION: Above findings are consistent with a low to intermediate probability scan Electronically signed by: Theodore Honeycutt M.D. 06/23/2016 3:08 PM Dictated Date/Time: 06/23/2016 3:01 PM
--- NOTE | 2016-06-23 16:22 | Pharmacy Progress Note ---
Pharmacy Abx Initial Consult Date of Service June 23, 2016. Pharmacy Dosing Scope Date of Consult: 06/23/16 Consultation requested by: Dr. Bess Pharmacy is consulted to initiate Vancomycin and Levaquin IV dosing therapy, order appropriate labs and adjust drug dose/frequency. Subjective The patient is a 75 year old male admitted on June 23, 2016 at 00:25. Objective Height (Feet): 6 Height (Inches): 1.00 Weight (Kilograms): 107.400 Vital Signs (Past 12Hrs) Vital Signs Past 12 Hours Date Time Temp Pulse Resp B/P Pulse Ox O2 Delivery O2 Flow Rate FiO2 06/23/16 15:31 36.4 81 19 138/61 91 Room Air 06/23/16 12:00 Room Air 06/23/16 11:17 36.6 70 20 157/80 96 Room Air 06/23/16 08:00 Room Air 06/23/16 07:26 36.7 67 18 103/62 97 Room Air 06/23/16 04:26 66 134/72 06/23/16 04:17 Room Air 06/23/16 04:11 89 126/77 Lab Results (24Hrs) Test 06/22/16 21:10 06/22/16 21:15 06/23/16 00:35 06/23/16 06:35 White Blood Count 10.05 K/uL (4.8-10.8) Red Blood Count 3.17 M/uL (4.7-6.1) Hemoglobin 9.3 g/dL (14.0-18.0) Hematocrit 28.8 % (42-52) Mean Corpuscular Volume 90.9 fL (80-100) Mean Corpuscular Hemoglobin 29.3 pg (25-34) Mean Corpuscular Hemoglobin Concent 32.3 g/dl (32-36) Platelet Count 326 K/uL (130-400) Mean Platelet Volume 8.4 fL (7.4-10.4) Neutrophils (%) (Auto) 59.7 % Lymphocytes (%) (Auto) 22.9 % Monocytes (%) (Auto) 14.8 % Eosinophils (%) (Auto) 1.5 % Basophils (%) (Auto) 0.8 % Neutrophils # (Auto) 6.00 K/uL (1.4-6.5) Lymphocytes # (Auto) 2.30 K/uL (1.2-3.4) Monocytes # (Auto) 1.49 K/uL (0.11-0.59) Eosinophils # (Auto) 0.15 K/uL (0-0.5) Basophils # (Auto) 0.08 K/uL (0-0.2) RDW Standard Deviation 51.1 fL (36.4-46.3) RDW Coefficient of Variation 15.3 % (11.5-14.5) Immature Granulocyte % (Auto) 0.3 % Immature Granulocyte # (Auto) 0.03 K/uL (0.00-0.02) Prothrombin Time 17.3 SECONDS (9.0-12.0) Prothromb Time International Ratio 1.6 (0.9-1.1) Activated Partial Thromboplast Time 31.2 SECONDS (21.0-31.0) Partial Thromboplastin Ratio 1.2 Sodium Level 132 mmol/L (136-145) Potassium Level 4.7 mmol/L (3.5-5.1) Chloride Level 93 mmol/L (98-107) Carbon Dioxide Level 28 mmol/L (21-32) Anion Gap 11.0 mmol/L (3-11) Blood Urea Nitrogen 29 mg/dl (7-18) Creatinine 6.90 mg/dl (0.60-1.40) Est Creatinine Clear Calc Drug Dose 12.3 ml/min Estimated GFR () 8.3 Estimated GFR (Non- 7.1 BUN/Creatinine Ratio 4.2 (10-20) Random Glucose 204 mg/dl (70-99) Calcium Level 9.5 mg/dl (8.5-10.1) Magnesium Level 2.4 mg/dl (1.8-2.4) Total Bilirubin 0.7 mg/dl (0.2-1) Aspartate Amino Transf (AST/SGOT) 23 U/L (15-37) Alanine Aminotransferase (ALT/SGPT) 21 U/L (12-78) Alkaline Phosphatase 259 U/L (45-117) Total Creatine Kinase 81 U/L (39-308) Creatine Kinase MB 1.1 ng/ml (0.5-3.6) Troponin I 0.057 ng/ml (0-0.045) Pro-B-Type Natriuretic Peptide 9808 pg/ml (0-900) Total Protein 7.7 gm/dl (6.4-8.2) Albumin 2.8 gm/dl (3.4-5.0) Globulin 4.9 gm/dl (2.5-4.0) Albumin/Globulin Ratio 0.6 (0.9-2) Bedside D-Dimer > 450 ng/mlFEU (0-450) Creatine Kinase MB Ratio (0-3.0) Urine Color YELLOW Urine Appearance CLEAR (CLEAR) Urine pH 8.5 (4.5-7.5) Urine Specific [place] 1.016 (1.000-1.030) Urine Protein 1+ (NEG) Urine Glucose (UA) 2+ (NEG) Urine Ketones TRACE (NEG) Urine Occult Blood 2+ (NEG) Urine Nitrite NEG (NEG) Urine Bilirubin NEG (NEG) Urine Urobilinogen NEG (NEG) Urine Leukocyte Esterase TRACE (NEG) Urine WBC (Auto) 10-30 /hpf (0-5) Urine RBC (Auto) 5-10 /hpf (0-4) Urine Hyaline Casts (Auto) 5-10 /lpf (0-5) Urine Epithelial Cells (Auto) >30 /lpf (0-5) Urine Bacteria (Auto) NEG (NEG) Urine Renal Epithelial Cells /lpf (0-5) Bedside Glucose 232 mg/dl (70-99) Test 06/23/16 08:35 06/23/16 11:05 06/23/16 11:17 06/23/16 13:30 Creatine Kinase MB Ratio (0-3.0) Transferrin % Saturation % (20-50) Bedside Glucose 229 mg/dl (70-99) Micro Results Date/Time Source Procedure Growth Status 06/23/16 02:50 Nasal MRSA DNA Surveillance Screen - Final Specimen Negative for MRSA by DNA Probe Complete 06/23/16 06:35 Urine , Clean Catch Urine Culture Pending Received Risk Factors for Resistance * Hospitalization for 48 hours or more within the past 90 days -> admitted 06/02 - 06/20 for pnx/diabetic foot with osteo * Chronic dialysis within the past 30 days * History of infection with E.coli (right foot) resistant to ampicillin, gentamicin, and bactrim, intermediate to unasyn (February 2016) and history of ampicillin resistant E.faecium * Antimicrobial use within the last 90 days -> Patient was recently discharged from [facility] on Vanc IV 750 mg after HD and levaquin 500 mg po Assessment & Plan Assessment 75 year old male that presented with SOB and chest pain. h/o fifth distal metatarsal abscess and osteo s/p resection of infected bone. Patient came to us on Vancomycin IV and Levaquin PO. Recent wound cultures grew MSSA, E. faecium (resistant to amp and pcn, dapto LUANNE = 4 mcg/mL), and Bacteroides. Plan Continue Vancomycin and Levaquin for treatment of abscess/osteo. Vancomycin IV * ESRD on HD - patient is due for HD today * Patient was receiving 750 mg IV after dialysis as an outpatient * Goal trough level for cellulitis with osteo : 15 to 20 mcg/mL * Random level was initially ordered for 06/23 with am labs, however, patient refused this lab draw. I discussed with RN and it was decided that the random level would be drawn in dialysis unit prior to dialysis. * Further dosing will be based on random level result Levaquin * 500 mg IV every 48 hours Pharmacy will continue to follow and will adjust dose/frequency as necessary. Thank you.
[2016-06-23] MEDS ORDERED: BOOST GLUCOSE CONTROL PO SCH (16:45)
[2016-06-23 17:24] LABS: CKMB/CK RATIO 1.5 (0-3.0)
[2016-06-23 17:39] LABS: CKMB/CK RATIO 1.7 (0-3.0)
[2016-06-23 17:57] LABS: FERRITIN 10245.7 ng/ml (8.0-388.0)
[2016-06-23] MEDS ORDERED: ALLOPURINOL 100 MG TAB PO SCH (21:00)
[2016-06-23] MEDS ORDERED: RANITIDINE HCL 150 MG TAB PO SCH (21:00)
[2016-06-23] MEDS ORDERED: TAMSULOSIN HCL 0.4 MG CAP PO SCH (21:00)
[2016-06-23] MEDS ORDERED: METOPROLOL SUCC 50MG EXT REL TAB PO SCH (21:00)
[2016-06-23] MEDS: INSULIN DETEMIR FLEXPEN/FLEX TOUCH 100 UNITS/ML 3ML SQ SCH ×2 (21:23→21:34)
[2016-06-24] MEDS: ONDANSETRON INJ 2 MG/ML 2 ML VIAL IV PRN (00:41)
[2016-06-24 04:14] VITALS: BP 136/76; PULSE 80; TEMP 37; O2SAT 92
[2016-06-24 07:33] VITALS: BP 129/64; PULSE 62; TEMP 36.6; O2SAT 94
--- NOTE | 2016-06-24 07:57 | Clinical Documentation Query ---
CLINICAL DOCUMENTATION QUERY 75 year old male who presents to the Emergency Room with complaints of persistent SOB. Cardiology consult states, "Congestive heart failure. The patient did have some evidence of pulmonary vascular congestion on his x-ray and reportedly some dyspnea, although not confirmed by the patient. His volume is control primarily by dialysis. He has preserved left ventricular systolic function. He may have had an element of diastolic dysfunction when converting to an atrial arrhythmia. His lungs examination is fairly benign currently and he is scheduled for dialysis today." In your clinical opinion is this patient being managed for: (X ) Acute on chronic preserved EF heart failure in setting of ESRD, hypertensive heart disease and atrial flutter with RVR. ( ) Other explanation of clinical findings (Please Explain) ( ) Unable to determine (Please Define) ( ) Need to Discuss ( ) Not Agree The medical record reflects the following clinical findings, treatment, and risk factors. Clinical Indicators: As above. CXR showed cardiomegaly and radiographic evidence of mild congestive failure/fluid overload. Treatment: telemetry, I.O.'s, daily weights, dialysis, cardiology and nephrology consults. Risk Factors: Age, ?of diastolic dysfunction, ESRD, & HTN. Please clarify and document your clinical opinion in the progress notes and discharge summary. Terms such as "probable", "suspected", "likely", "questionable", "possible", or "still to be ruled out" are acceptable. IF IN AGREEMENT, YOU MUST DOCUMENT ABOVE DIAGNOSTIC STATEMENT IN DAILY PROGRESS NOTES AND DISCHARGE SUMMARY. This document is not part of the patient's record. Thank You, Shaheen Jennings, RN [phone]
[2016-06-24] MEDS: INSULIN ASPART 100 UNITS/ML 3 ML PEN SC SCH ×3 (08:08→16:15)
[2016-06-24] MEDS: LISINOPRIL 40 MG TAB PO SCH (08:09)
[2016-06-24] MEDS: ASPIRIN 81 MG ECTAB PO SCH (08:10)
[2016-06-24] MEDS: ATORVASTATIN 20 MG TAB PO SCH (08:10)
[2016-06-24] MEDS: CALCIUM ACETATE 667MG GELCAP PO SCH ×2 (08:10→11:16)
[2016-06-24] MEDS: AMLODIPINE BESYLATE 5 MG TAB PO SCH (08:10)
[2016-06-24] MEDS: CHOLECALCIFEROL 1000 INTER.UNIT TAB PO SCH (08:11)
[2016-06-24] MEDS: FUROSEMIDE 40 MG TAB PO SCH (08:11)
[2016-06-24] MEDS: METRONIDAZOLE 500 MG TAB PO SCH (08:11)
[2016-06-24] MEDS: METOPROLOL SUCC 50MG EXT REL TAB PO SCH (08:12)
[2016-06-24] MEDS: CHLORDIAZEPOXIDE 10 MG CAP PO SCH (08:16)
[2016-06-24] MEDS: SODIUM BICARBONATE 650 MG TAB PO SCH (09:26)
--- NOTE | 2016-06-24 09:49 | Pharmacy Progress Note ---
Pharmacy Abx Dose Progress Nt Date of Service June 24, 2016. Pharmacy Dosing Scope The patient is currently receiving the following antimicrobial agents per Pharmacy consult: Vancomycin dosing based on pre-HD levels and Levaquin 500 mg q48h Objective Height (Feet): 6 Height (Inches): 1.00 Weight (Kilograms): 107.200 Vital Signs (Past 12Hrs) Vital Signs Past 12 Hours Date Time Temp Pulse Resp B/P Pulse Ox O2 Delivery O2 Flow Rate FiO2 06/24/16 08:00 Room Air 06/24/16 07:33 36.6 62 19 129/64 94 Room Air 06/24/16 04:14 37.0 80 18 136/76 92 Room Air 06/24/16 04:00 Room Air 06/24/16 00:00 Room Air 06/23/16 23:45 37.0 87 18 112/67 92 Room Air Lab Results (24Hrs) Test 06/23/16 16:25 06/23/16 20:21 06/24/16 04:44 06/24/16 06:34 Creatinine 8.00 mg/dl (0.60-1.40) Est Creatinine Clear Calc Drug Dose 10.4 ml/min Estimated GFR () 6.9 Estimated GFR (Non- 6.0 Iron Level 53 mcg/dl (35-175) Total Iron Binding Capacity 176 mcg/dl (250-450) Transferrin 152 mg/dl (200-360) Transferrin % Saturation 25 % (20-50) Ferritin 23468.7 ng/ml (8.0-388.0) Total Creatine Kinase 55 U/L (39-308) Creatine Kinase MB 0.8 ng/ml (0.5-3.6) Creatine Kinase MB Ratio 1.5 (0-3.0) Troponin I 0.046 ng/ml (0-0.045) Random Vancomycin Level 15.9 mcg/ml Bedside Glucose 120 mg/dl (70-99) 141 mg/dl (70-99) Micro Results Date/Time Source Procedure Growth Status 06/23/16 02:50 Nasal MRSA DNA Surveillance Screen - Final Specimen Negative for MRSA by DNA Probe Complete 06/23/16 06:35 Urine , Clean Catch Urine Culture Pending Received Risk Factors for Resistance * Hospitalization for 48 hours or more within the past 90 days -> admitted 06/02 - 06/20 for pnx/diabetic foot with osteo * Chronic dialysis within the past 30 days * History of infection with E.coli (right foot) resistant to ampicillin, gentamicin, and bactrim, intermediate to unasyn (February 2016) and history of ampicillin resistant E.faecium * Antimicrobial use within the last 90 days -> Patient was recently discharged from [facility] on Vanc IV 750 mg after HD and levaquin 500 mg po Assessment & Plan Assessment 75 year old male that presented with SOB and chest pain. h/o fifth distal metatarsal abscess and osteo s/p resection of infected bone. Patient came to us on Vancomycin IV and Levaquin PO. Recent wound cultures grew MSSA, E. faecium (resistant to amp and pcn, dapto LUANNE = 4 mcg/mL), and Bacteroides. Patient is on day #2 of inpatient therapy of these antibiotics. Plan Vancomycin IV * Pre-HD level of 15.9 mcg/mL drawn yesterday is therapeutic and indicates a need to re-dose after dialysis - 750 mg IV x 1 given last evening * Random level ordered for: 06/24/16 with AM labs to assess when next post-HD dose of vancomycin is due * If random levels remain stable (15-20), can reduce the frequency of levels and continue giving vancomycin 750 mg after each dialysis Levaquin IV * Continue 500 mg IV q48h for dosing in dialysis Pharmacy will continue to follow and will adjust dose/frequency as necessary. Thank you.
--- NOTE | 2016-06-24 10:02 | Nephrology Progress Note ---
Nephrology Progress Note Date of Service June 24, 2016. Chief Complaint Provide HD for this patient w/ ESRD admitted with atrial fibrillation w/ RVR and dyspnea Subjective Mr. Carmichael was seen & examined in the PCU this morning. He was dialyzed yesterday evening without complication. He currently denies angina, dyspnea or pleuritic chest pain. His primary concern this morning is that he is weak. Review of Systems Constitutional: No fever Cardiovascular: No chest pain Respiratory: No dyspnea at rest Abdomen: No nausea, No pain, No vomiting Extremities: No leg edema A complete review of systems was performed. Pertinent positives are noted above. All other systems are negative. Vital Signs Last 8 Hrs Date Time Temp Pulse Resp B/P Pulse Ox O2 Delivery O2 Flow Rate FiO2 06/24/16 08:00 Room Air 06/24/16 07:33 36.6 62 19 129/64 94 Room Air 06/24/16 04:14 37.0 80 18 136/76 92 Room Air 06/24/16 04:00 Room Air I & O 24-Hour Column 06/24/16 07:59 Intake Total 1029 ml Output Total 2100 ml Balance -1071 ml Last Recorded Weight Weight (Kilograms): 107.200 Physical Exam General Appearance: no apparent distress Head: normocephalic, atraumatic Eyes: PERRL, EOMI Neck: no adenopathy Respiratory/Chest: lungs clear, no respiratory distress Cardiovascular: + irregularly irregular Abdomen/GI: normal bowel sounds, non tender, soft Extremities/Musculoskelatal: no calf tenderness, no pedal edema, + pertinent finding (AVF + bruit) Neurologic/Psych: alert, oriented x 3 Family History FH: diabetes mellitus AUNT FH: stroke GRANDMOTHER Heart disease Hypertension Kidney disease Negative for CKD / ESRD Social History Smoking Status: Unknown if ever smoked Smokeless Tobacco Use: No Alcohol Use: none Drug Use: none Marital Status: Housing Status: lives with family Occupation: retired . Retired. Former smoker Laboratory Results Past 24 Hours 06/23/16 16:25 Test 06/23/16 11:17 06/23/16 16:05 06/23/16 16:25 06/23/16 20:21 Bedside Glucose 229 mg/dl (70-99) 188 mg/dl (70-99) 120 mg/dl (70-99) Est Creatinine Clear Calc Drug Dose 10.4 ml/min Estimated GFR () 6.9 Estimated GFR (Non- 6.0 Iron Level 53 mcg/dl (35-175) Total Iron Binding Capacity 176 mcg/dl (250-450) Transferrin 152 mg/dl (200-360) Transferrin % Saturation 25 % (20-50) Ferritin 33245.7 ng/ml (8.0-388.0) Total Creatine Kinase 55 U/L (39-308) Creatine Kinase MB 0.8 ng/ml (0.5-3.6) Creatine Kinase MB Ratio 1.5 (0-3.0) Troponin I 0.046 ng/ml (0-0.045) Random Vancomycin Level 15.9 mcg/ml Test 06/24/16 04:44 06/24/16 06:34 Bedside Glucose 141 mg/dl (70-99) Allergies Coded Allergies: No Known Allergies (Verified , 06/02/16) Medications Current Inpatient Medications Medications (Trade) Dose Ordered Sig/Eliseo Route Start Time Stop Time Status Last Admin Dose Admin Acetaminophen (Tylenol Tab) 650 mg Q4H PRN PO 06/23/16 00:15 07/23/16 00:14 Zolpidem Tartrate (Ambien Tab) 5 mg HSZ PRN PO 06/23/16 00:15 07/23/16 00:14 Nitroglycerin (Nitrostat Tab) 0.4 mg UD PRN SL 06/23/16 00:15 07/23/16 00:14 Allopurinol (Zyloprim Tab) 100 mg HS PO 06/23/16 21:00 07/23/16 20:59 06/23/16 21:27 100 MG Amlodipine Besylate (Norvasc Tab) 10 mg QAM PO 06/23/16 09:00 07/23/16 08:59 06/24/16 08:10 10 MG Aspirin (Ecotrin Tab) 81 mg QAM PO 06/23/16 09:00 07/23/16 08:59 06/24/16 08:10 81 MG Atorvastatin Calcium (Lipitor Tab) 20 mg DAILY PO 06/23/16 09:00 07/23/16 08:59 06/24/16 08:10 20 MG Calcium Acetate (Phoslo Cap) 667 mg TIDM PO 06/23/16 07:30 07/23/16 07:29 06/24/16 08:10 667 MG Chlordiazepoxide (Librium Cap) 10 mg BID PO 06/23/16 09:00 07/23/16 08:59 06/24/16 08:16 10 MG Furosemide (Lasix Tab) 40 mg DAILY PO 06/23/16 09:00 07/23/16 08:59 06/24/16 08:11 40 MG Acetaminophen/ Hydrocodone Bitart ([place] 5/325 Tab) 1 tab Q6H PRN PO 06/23/16 00:30 07/07/16 00:29 Acetaminophen/ Hydrocodone Bitart ([place] 5/325 Tab) 2 tab Q6H PRN PO 06/23/16 00:30 07/07/16 00:29 06/23/16 02:47 2 TAB Insulin Detemir (Levemir Flexpen/ FlexTouch) 20 unit HS SQ 06/23/16 21:00 07/23/16 20:59 06/23/16 21:34 12 UNIT Ipratropium Chambers (Atrovent Hfa Inhaler) 2 puffs QID PRN INH 06/23/16 00:30 07/23/16 00:29 Lisinopril (Zestril Tab) 40 mg QAM PO 06/23/16 09:00 07/23/16 08:59 06/24/16 08:09 40 MG Meclizine HCl (Antivert Tab) 25 mg Q4H PRN PO 06/23/16 00:30 07/23/16 00:29 Metoprolol Succinate (Toprol Xl Tab) 50 mg QPM PO 06/23/16 21:00 07/23/16 20:59 06/23/16 21:26 50 MG Metoprolol Succinate (Toprol Xl Tab) 75 mg QAM PO 06/23/16 09:00 07/23/16 08:59 06/24/16 08:12 75 MG Metronidazole (Flagyl Tab) 500 mg BID PO 06/23/16 09:00 07/03/16 08:59 06/24/16 08:11 500 MG Sodium Bicarbonate (Sodium Bicarbonate Tab) 650 mg BID PO 06/23/16 09:00 07/23/16 08:59 06/24/16 09:26 650 MG Tamsulosin HCl (Flomax Cap) 0.4 mg HS PO 06/23/16 21:00 07/23/16 20:59 06/23/16 21:25 0.4 MG Cholecalciferol (Vitamin D Tab) 2,000 inter.unit QAM PO 06/23/16 09:00 07/23/16 08:59 06/24/16 08:11 2,000 INTER.UNIT Trazodone HCl (Desyrel Tab) 150 mg HS PRN PO 06/23/16 00:30 07/23/16 00:29 Ondansetron HCl (Zofran Inj) 4 mg Q6H PRN IV 06/23/16 00:45 07/23/16 00:44 06/24/16 00:41 4 MG Insulin Aspart (novoLOG ASPART) SLIDING SCALE If C... ACHS SC 06/23/16 07:00 07/23/16 06:59 06/23/16 21:23 2 UNITS Glucose (Glucose 40% Gel) UD PRN PO 06/23/16 00:45 07/23/16 00:44 Glucose (Glucose Chew Tab) 1 tabs UD PRN PO 06/23/16 00:45 07/23/16 00:44 Dextrose (Dextrose 50% 50ML Syringe) 50 ml UD PRN IV 06/23/16 00:45 07/23/16 00:44 Glucagon 1 mg 1 mg UD PRN SQ 06/23/16 00:45 07/23/16 00:44 Diltiazem HCl/ Dextrose (Cardizem Inj/D5 100ml) 125 ml @ 0 mls/hr Q0M PRN IV 06/23/16 01:45 07/23/16 01:44 06/23/16 15:15 5 MLS/HR Vancomycin HCl (Consult) 1 ea UD PRN N/A 06/23/16 02:00 07/23/16 01:59 Levofloxacin (Consult) 1 ea UD PRN N/A 06/23/16 02:00 07/23/16 01:59 Ipratropium Chambers (Atrovent 0.02% 0.5MG/2.5ML Neb) 0.5 mg Q2H PRN INH 06/23/16 02:15 07/23/16 02:14 Levalbuterol 1.25 mg 1.25 mg Q2H PRN INH 06/23/16 02:15 07/23/16 02:14 Famotidine/ Dextrose (Pepcid IV Inj/ D5 100ml) 102 ml @ 200 mls/hr DAILY@1100 IV 06/24/16 11:00 07/24/16 10:59 Enteral Nutritional Formula 1 can 1 can QDD PO 06/23/16 16:45 07/23/16 16:44 Levofloxacin/Prmx (Levaquin / D5W/ Premixed D5W) 100 ml @ 100 mls/hr Q48H IV 06/25/16 02:00 08/06/16 01:59 Impression (1) End-stage renal disease on hemodialysis (2) Atrial flutter with rapid ventricular response (3) Osteomyelitis (4) Diabetes mellitus, type II (5) Hypertension (6) Monoclonal gammopathy Mr. Carmichael was admitted for evaluation of dyspnea and pleurisy. He has atrial fibrillation w/ RVR. He has been admitted for anticoagulation and rate control. Cardiology evaluation, echocardiogram, V/Q studies are currently pending. Patient has ESRD and requires HD MWF. He required TIRE WRAPPER of the venous limb of his AVF 06/14/16. He was recently hospitalized for debridement of right foot abscess and resection of infected 5th metatarsal head. Recommendations END STAGE RENAL DISEASE: -- Clinically euvolemic. Patient declined blood work this am. Will schedule next dialysis for tomorrow am. HD RN notified and orders entered into EMR -- HD diet -- Protect left upper arm AVF HYPERTENSION: -- Blood pressure is currently acceptable. Continue current antihypertensive regimen -- Antihypertensive agents as per Cardiology. ANEMIA: -- Will provide FLOWER with HD tomorrow -- Will check iron stores w/ next lab draw ID: -- Antibiotics as per ID research consultant OTHER: -- V/Q results reviewed today - low to intermediate probability -- 12 lead ecg reviewed this am - NSR with lateral biphasic T waves -- Await further Cardiology input
[2016-06-24] MEDS ORDERED: FAMOTIDINE IV INJ 20 MG in DEXTROSE 5% 100ML 100 ML IV SCH (11:00)
[2016-06-24 11:41] VITALS: BP 125/61; PULSE 57; TEMP 36.7; O2SAT 91
[2016-06-24 12:52] LABS: BASO % 1.2 %; COMPLETE YES; EOS % 2.7 %; HEMATOCRIT 28.1 % (42-52); IG% 0.4 %; LYMPH % 19.5 %; LYMPH ABS # 1.59 K/uL (1.2-3.4); MEAN CELL VOLUME 91.5 fL (80-100); MEAN CORPUSCULAR HEMOGLOBIN 30.3 pg (25-34); MEAN CORPUSCULAR HGB CONC 33.1 g/dl (32-36); MEAN PLATELET VOLUME 8.8 fL (7.4-10.4); MONO % 15.4 %; NEUT % 60.8 %; PLATELET COUNT 331 K/uL (130-400); RED BLOOD COUNT 3.07 M/uL (4.7-6.1); WHITE BLOOD COUNT 8.16 K/uL (4.8-10.8)
--- NOTE | 2016-06-24 13:01 | Discharge Instructions ---
Discharge Instructions Date of Service June 24, 2016. Admission Reason for Admission: Atrial Flutter W/Rvr; Diabetic Ulcer, Rt Foot Discharge Discharge Diagnosis / Problem: Atrial flutter with RVR; diabetic foot ulcer Discharge Goals Goal(s): Decrease discomfort, Improve function, Diagnostic testing, Therapeutic intervention Activity Recommendations Activity Limitations: resume your previous activity . Instructions / Follow-Up Instructions / Follow-Up You were admitted to the hospital after presenting with shortness of breath and chest pain. You found to be in an irregular rhythm called atrial flutter with a rapid heart rate which was likely contributing to your shortness of breath. You converted back to a regular sinus rhythm after receiving an IV medication called diltiazem. You had a lung perfusion scan to assess for clots in the lungs, which came back with a low probability of clots. You were evaluated by cardiology, who did not recommend any further work up and infectious disease, who recommended that you return to your previous antibiotic regimens. Medications: *Levaquin 500 mg by mouth every 48 hours for a total of a 7 day course. You received the first dose while inpatient. Next dose due 06/25. *Vancomycin 750 mg Mondays, Wednesdays, and Fridays with dialysis for at least 2 weeks. *Metronidazole 500 mg by mouth twice a day for at least 2 weeks. *Continue your other home medications as prescribed. Follow up: *You have been scheduled to follow up with Dr. Mendez on Wednesday, June 29, 2016 at 1:00 pm regarding your hospital stay. *You are scheduled to follow up with Wound Care and Dr. Ellis of infectious disease on June at 1:00 pm. They will assess if you need to continue a longer antibiotic course or not. Please seek medical attention if you experience fevers, chills, sweats, chest pain, shortness of breath, nausea, vomiting, lightheadedness, loss of consciousness, new numbness or tingling, or if you experience worsening redness , swelling, pain or drainage from your wound. Current Hospital Diet Patient's current hospital diet: Diabetes Type 2 Diet, Renal Diet Discharge Diet Recommended Diet: Diabetes Type 2 Diet, Renal Diet Pending Studies Studies pending at discharge: no Laboratory Results Hemoglobin A1c Test 06/17/16 06:09 Range/Units Estimated Average Glucose 157 mg/dl Hemoglobin A1c 7.1 H 4.5-5.6 % Medical Emergencies . Who to Call and When: Medical Emergencies: If at any time you feel your situation is an emergency, please call 911 immediately. . Non-Emergent Contact Non-Emergency issues call your: Primary Care Provider Call Non-Emergent contact if: you have a fever, wound has increased drainage, wound has increased redness, wound has increased pain, you have any medication questions . Past History Medical & Surgical History: (1) Atrial flutter with rapid ventricular response (2) Diabetic ulcer of right foot . "Provider Documentation" section prepared by Minal Berman. . VTE Core Measure Inpt VTE Proph given/why not?: Other Anticoagulation (heparin IV standard dose with weight-based protocol.), SCD's
[2016-06-24 13:07] LABS: INR 1.7 (0.9-1.1); PARTIAL THROMBOPLASTIN RATIO 1.2
[2016-06-24] MEDS ORDERED: LEVO-366 PO (13:10)
[2016-06-24] MEDS ORDERED: NF1094 IV (13:10)
[2016-06-24 13:25] LABS: CREATININE 5.5 mg/dl (0.60-1.40)
[2016-06-24 13:26] LABS: ALB/GLOB RATIO 0.5 (0.9-2); BUN/CREATININE RATIO 4.8 (10-20); MAGNESIUM 2.3 mg/dl (1.8-2.4); PHOSPHORUS 4.3 mg/dl (2.5-4.9); POTASSIUM 4.4 mmol/L (3.5-5.1)
[2016-06-24 14:42] VITALS: BP 125/61; PULSE 57; TEMP 36.7; O2SAT 91
[2016-06-24 15:57] VITALS: BP 126/64; PULSE 72; TEMP 37; O2SAT 90
--- NOTE | 2016-06-24 16:17 | Discharge Summary ---
Discharge Summary Date of Service June 24, 2016. (Minal Berman PA-C) Discharge Summary Admission Date: June 23, 2016 at 00:25 Discharge Date: June 24, 2016 Discharge Disposition: Home with services Principal Diagnosis: Atrial fibrillation with RVR, diabetic foot ulcer Immunizations: Have You Had Influenza Vaccine: Yes History of Tetanus Vaccine?: Unknown History of Pneumococcal: Yes Pneumococcal Date: Dec 22, 2007 History of Hepatitis B Vaccine: Unknown Consultations: Infectious disease--Aleah Linder PA-C Cardiology--Dr. Longoria Nephrology--Dr. Bustillo (Minal Berman PA-C) Medication Reconciliation New Medications: Levofloxacin (Levaquin) 500 Mg Tab 500 MG PO Q48H for 12 Days, #6 TAB Take 1 tablet by mouth every 48 hours. First dose 06/25. Changed Medications: Vancomycin HCl (Vancomycin HCl) 100 Mg/Ml Inj 750 MG IV UD for 14 Days, #7 DOSE 0 Refills (Changed from: 2; after hemodialysis ) Tuesday, Tuesday, Tuesday with hemodialysis for 2 weeks. Continued Medications: Allopurinol (Zyloprim) 100 Mg Tab 100 MG PO HS for 30 Days, TAB 5 Refills Amlodipine (Norvasc) 5 Mg Tab 10 MG PO QAM, TAB Aspirin (Aspirin Ec) 81 Mg Tab 81 MG PO QAM Atorvastatin (Atorvastatin Calcium) 20 Mg Tab 20 MG PO DAILY, #30 Calcium Acetate (Phosphate Bin (Phoslo 667 Mg) 667 Mg Cap 667 MG PO TID Chlordiazepoxide (Librium) 10 Mg Cap 10 MG PO BID, CAP Cholecalciferol (Vitamin D3) 2,000 Unit Cap 2000 UNITS PO DAILY, CAP Furosemide (Furosemide) 40 Mg Tab 40 MG PO DAILY, #120 Hydrocodone/Acetaminophen 5MG/325MG ([place] 5MG/325MG) Tab 1 TAB PO Q6H PRN for Pain, TAB PRN PAIN Hydrocodone/Acetaminophen 5MG/325MG ([place] 5MG/325MG) Tab 2 TABLETS PO Q6H PRN for Pain, TAB PRN PAIN Insulin Aspart (Novolog Penfill) 100 Unit/Ml Inj 60 UNITS SQ BID SLIDING SCALE Insulin Detemir (Levemir Flextouch) 100 Unit/Ml Inj 20 UNITS SQ HS Ipratropium [place] (Atrovent Hfa) 200 Puffs/3400 Mcg Aers 2 PUFFS INH QID PRN for Shortness of Breath, #12.9 GM 5 Refills Ipratropium-Albuterol (Duoneb) 3 Ml Nebu 1 TREATMENT INH Q4H PRN for Shortness of Breath, INHA Lisinopril (Zestril) 40 Mg Tab 40 MG PO QAM, TAB Meclizine HCl (Meclizine HCl) 25 Mg Tab 25 MG PO Q4H PRN for Dizziness or Vertigo Metoprolol Succ (Toprol Xl) (Toprol-Xl) 50 Mg Tabcr 50 MG PO QPM, TAB Metoprolol Succinate (Metoprolol Succinate ER) 50 Mg Tabcr 75 MG PO QAM Metoprolol Succinate (Metoprolol Succinate ER) 50 Mg Tabcr 50 MG PO QPM Metronidazole (Flagyl) 500 Mg Tab 500 MG PO BID, TAB Ranitidine Hcl (Zantac) 300 Mg Tab 300 MG PO DAILY Sodium Bicarbonate (Sodium Bicarbonate) 650 Mg Tab 650 MG PO BID Tamsulosin HCl (Tamsulosin HCl) 0.4 Mg Cap 0.4 MG PO HS, #30 Trazodone HCl (Trazodone HCl) 150 Mg Tab 150 MG PO HS PRN for Sleep Warfarin Sod (Coumadin) 5 Mg Tab 5 MG PO DAILY Referrals At Discharge Follow up Referrals: Infectious Disease - Within 2 Weeks with Aleah Linder ., PAMarthaC Physician Referral - Within 2 Weeks with Quentin Junior, DO Discharge Exam Patient reports feeling weak and fatigued. He states that he is slightly short of breath at rest and complains of MARTINEZ. The patient denies fevers, chills, sweats, chest pain, palpitations, claudication, cough, wheezing, nausea, vomiting, abdominal pain, dysuria, hematuria, urinary retention, paralysis, weakness, numbness and tingling. Review of Systems: Constitutional: + fatigue, + weakness, No chills, No fever, No sweats Eyes: No diplopia, No eye pain, No worsening of vision ENT: No hearing loss, No sore throat, No trouble swallowing Respiratory: + dyspnea on exertion, + shortness of breath, No cough, No wheezing Cardiovascular: No chest pain, No claudication, No palpitations Abdomen: No nausea, No pain, No vomiting Musculoskeletal: No joint pain, No muscle pain, No swelling Genitourinary - Male: No dysuria, No hematuria, No urinary retention Neurologic: No numbness/tingling, No paralysis, No weakness Integumentary: No color change, No itch, No rash Physical Exam: General Appearance: WD/WN, no apparent distress, + obese Eyes: normal inspection, PERRL, EOMI ENT: normal ENT inspection, hearing grossly normal, pharynx normal Neck: supple, no JVD, trachea midline Respiratory/Chest: no respiratory distress, + crackles, + wheezing (slight wheeze in bases) Cardiovascular: regular rate, rhythm, no gallop, no murmur Abdomen / GI: normal bowel sounds, non tender, soft Extremities: normal inspection, no calf tenderness, + swelling (3+ pitting edema) Neurologic/Psychiatric: alert, normal mood/affect, oriented x 3 Skin: normal color, warm/dry, no rash (Minal Berman ., ROBERT) Hospital Course 75 y/o male with a history of a-fib, DM II, ESRD on hemodialysis, HLD, BPH, and GERD who presented to the ED with SOB, chest pain, chills and vomiting. Pt recently admitted 06/02-06/20 with pneumonia and right diabetic foot osteomyelitis. Pt had been discharged on IV vancomycin given after dialysis and PO Levaquin. Pt was diagnosed with afib during this last admission and had been started on Coumadin but never started this medication as he did not fill the prescription. Atrial flutter/fib with RVR--currently in sinus rhythm -Pt admitted to telemetry for cardiac monitoring. He converted to SR around 00: 42 on 06/24 and has since remained in SR -Cardiology on board. Continue metoprolol and Coumadin. No further work up of chest pain recommended -EKG 06/24 shows 74 bpm, sinus rhythm -Stop diltiazem drip -Continue metoprolol succinate 75 mg PO qam and 50 mg PO qpm -Continue Coumadin 5 mg PO qd Pleuritic precordial chest pain--resolved -VQ scan showed low to intermediate probability -Echo 06/08/16 showed moderate right atrial enlargement, otherwise normal -Troponin mildly elevated, appears to be chronic secondary to ESRD ESRD--stable -Nephrology on board -Pt received HD on 06/23 -Continue sodium bicarbonate and PhosLo DM II--last HgbA1c on 06/17/16 was 7.1 -Levemir 20 units SC qhs -Insulin sliding scale -Check BSGs q ac and qhs Diabetic foot ulcer/osteomyelitis--stable -ID on board, appreciate recs: stable for discharge. Continue vancomycin and Flagyl at least 2 weeks, will have to see wound care and ID in 2 weeks to determine if needs longer course. Continue Levaquin total of 7 days. -Pt scheduled for f/y wound care and ID appt next week HTN--stable -Continue amlodipine 10 mg PO qd, lisinopril 40 mg PO qd, and metoprolol as above HLD -Continue atorvastatin 20 mg PO qd Gout -Continue allopurinol 100 mg PO qhs BPH -Continue tamsulosin 0.4 mg PO qhs GERD -Continue ranitidine 300 mg PO qd DVT prophylaxis -Heparin, Coumadin Code Status -Level I, FULL RESUSCITATION STATUS Total Time Spent: Greater than 30 minutes This includes examination of the patient, discharge planning, medication reconciliation, and communication with other providers. (Minal Berman ., PA-C) I agree with PA assessment and plan and have seen and examined pts myself Resting comfortably in bed wanting to go home VSS Instructed pt on compliance states doesnt like taking meds high risk for readmission Appreicate ID recs Antibx on DC (Keshawn Frankel D.O.) Discharge Instructions Please refer to the electronic Patient Visit Report (Discharge Instructions) for additional information. (Minal Berman ., PA-C) Additional Copies To Obi Mendez M.D.
[2016-06-25] MEDS ORDERED: LEVOFLOXACIN / D5W 500 MG in PREMIXED IN D5W 100 ML IV SCH (02:00)
[2016-06-25] MEDS ORDERED: LEVOFLOXACIN 250MG / D5W IV SCH (02:00)
[2016-06-25] MEDS ORDERED: EPOETIN ALFA 10,000 UNITS/ML VIAL IV SCH (06:00)
[2016-07-08] MEDS ORDERED: NF1420 PO (14:08)
[2016-07-13] MEDS ORDERED: METO25TA3 PO (17:57)
[2016-07-13] MEDS ORDERED: FRS/40 PO (17:57)
[2016-07-13] MEDS ORDERED: LIDO4CRE10 TOP (17:57)
[2016-07-13] MEDS ORDERED: ALLO100T PO (17:57)
[2016-07-16] MEDS ORDERED: B-COCAP20 PO (11:21)
[2016-07-16] MEDS ORDERED: HYDR-5688 PO (11:21)
[2016-07-16] MEDS ORDERED: NUTR-7 PO (11:21)
[2016-07-16] MEDS ORDERED: VLTG EXT (11:21)
[2016-07-19] MEDS ORDERED: VLTG EXT (16:27)
[2016-07-19] MEDS ORDERED: NVLGIPEN SC (16:27)
[2016-07-19] MEDS ORDERED: CMD3 PO (16:28)
[2016-07-19] MEDS ORDERED: INSU3INJ3 SQ (16:35)
[2016-07-19] MEDS ORDERED: OXYC-57 PO (17:07)
[2016-07-29] MEDS ORDERED: GABA-112 PO (13:17)
== END 2016-06-24 16:51 | disposition home health service (06) | DRG 308 ==
LOC: ENRESERVDT → ENRESERVTM → C.EDB 19:04 → C.2T 06-23 00:25
PROVIDERS: ADMIT Hospitalist; ATTEND Hospitalist
DX: I48.92 Unspecified atrial flutter (principal); N18.6 End stage renal disease; L03.90 Cellulitis, unspecified; M86.9 Osteomyelitis, unspecified; I50.30 Unspecified diastolic (congestive) heart failure; L02.611 Cutaneous abscess of right foot; I13.2 Hypertensive heart and chronic kidney disease with heart failure and with stage 5 chronic kidney disease, or end stage renal disease; I48.91 Unspecified atrial fibrillation; E11.622 Type 2 diabetes mellitus with other skin ulcer; E11.69 Type 2 diabetes mellitus with other specified complication; D47.2 Monoclonal gammopathy; R07.2 Precordial pain; I73.9 Peripheral vascular disease, unspecified; E78.5 Hyperlipidemia, unspecified; I65.29 Occlusion and stenosis of unspecified carotid artery; E11.22 Type 2 diabetes mellitus with diabetic chronic kidney disease; R79.89 Other specified abnormal findings of blood chemistry; M10.9 Gout, unspecified; N40.0 Benign prostatic hyperplasia without lower urinary tract symptoms; K21.9 Gastro-esophageal reflux disease without esophagitis; D64.9 Anemia, unspecified; R10.13 Epigastric pain; R06.00 Dyspnea, unspecified; Z87.891 Personal history of nicotine dependence; Z99.2 Dependence on renal dialysis; Z89.431 Acquired absence of right foot; F32.9 Major depressive disorder, single episode, unspecified; Z86.19 Personal history of other infectious and parasitic diseases; Z85.038 Personal history of other malignant neoplasm of large intestine; Z79.82 Long term (current) use of aspirin; Z79.4 Long term (current) use of insulin; Z79.899 Other long term (current) drug therapy; Z79.891 Long term (current) use of opiate analgesic; Z79.01 Long term (current) use of anticoagulants; R60.0 Localized edema

== ENCOUNTER 2016-06-30 06:16 | Observation (INO) | payer OTHER ==
[~2016-06-30] VITALS: Ht 185.4 cm; Wt 104.8 kg
[2016-06-30] VITALS (17 sets, daily range): BP systolic 120–169; BP diastolic 59–73; PULSE 69–77; TEMP 36.3–36.7; O2SAT 96–97; Ht 185.4 cm; Wt 104.8 kg
[~2016-06-30 06:16] MED LIST changes: +AMLO-110 PO; -ASPI-232 PO; +ASPI81TA28 PO; +CHLO10CA7 PO; +INSU3INJ3 SQ; -LBR10 PO; -LEVO-17 PO; +LEVO-366 PO; +LISI40TA PO; -LSN40 PO; -LVMIPEN SC; +METR-163 PO; -MTR500 PO; -NRV5 PO; -TPRSR25 PO
[2016-06-30] MEDS ORDERED: B-CO1CAP17 PO (06:46)
--- NOTE | 2016-06-30 06:56 | EMERGENCY ROOM VISIT NOTE ---
History Report prepared by [place]: Kelin Gunn Under the Supervision of: Dr. Tanya Yang M.D. First contact with patient: 06:47 Chief Complaint: SHORTNESS OF BREATH Stated Complaint: SHORTNESS OF BREATH Nursing Triage Summary: pt brought to main ED by ALS from dialysis. ALS reports that pt went to dialysis and and was "vazquez, sob, and weak." pt denies CP per ALS. no dialysis treatment given today. pt has fistula in left arm, limb alert band placed. upon questoning, pt denies chest pain. states his knees and legs "have been giving out" but denies weakness. pt states he has bilateral leg pain, 6/10. walking boot noted on right foot, pt states "there's a hole in it" and pt is followed by his doctor. denies dizziness, states "I'm wobbly in the eyes" and has blurry vision. pt denies n/v, states "I have dry mouth." pt is alert and oriented x4, pt is breathing regularly and independently. skin is WNL. pt states "they tell me I have copd, then someone else told me i didn't." pt states he has DM and HTN. History of Present Illness The patient is a 75 year old male who presents to the Emergency Room with complaints of worsening shortness of breath beginning this morning. The patient was at dialysis and sent to ED for evaluation of shortness of breath and weakness. He states that he was discharged from hospital one week ago and since then has continued to be weak. He states that this past week he has been stumbling and catching himself from falling down due to his knees "giving out". The patient notes that he has a lot of stairs in his house and feels too weak to maneuver around the house. He does have chronic swelling to his lower extremities and back pain. The patient has an ulcer to his foot. He also notes a decreased appetite. The patient denies fever, chest pain or shoulder pain. Source of History: patient Onset: this morning Position: other (global) Quality: other (shortness of breath) Timing: worsening Associated Symptoms: + back pain, No chest pain, No fevers Review of Systems See HPI for pertinent positives & negatives. A total of 10 systems reviewed and were otherwise negative. Past Medical & Surgical Medical Problems: (1) Anemia (2) CKD (chronic kidney disease) stage 3, GFR 30-59 ml/min (3) Diabetes mellitus, type II (4) Diabetic ulcer of right foot (5) End-stage renal disease on hemodialysis (6) Generalized weakness (7) Gout (8) History of adenomatous polyp of colon (9) History of Clostridium difficile infection (10) Hypertension (11) Monoclonal gammopathy (12) Osteomyelitis (13) Secondary hyperparathyroidism of renal origin (14) Unspecified open wound, right foot, sequela Surgical Problems: (1) Status post arthroscopic knee surgery Family History FH: diabetes mellitus AUNT FH: stroke GRANDMOTHER Heart disease Hypertension Kidney disease Social History Smoking Status: Former Smoker Alcohol Use: none Drug Use: none Marital Status: Housing Status: lives with family Occupation Status: retired Current/Historical Medications Scheduled Amlodipine (Norvasc), 10 MG PO QAM Aspirin (Aspirin Ec), 81 MG PO QAM Atorvastatin (Atorvastatin Calcium), 20 MG PO DAILY Calcium Acetate (Phosphate Bin (Phoslo 667 Mg), 667 MG PO TID Chlordiazepoxide (Librium), 10 MG PO BID Cholecalciferol (Vitamin D3), 2,000 UNITS PO DAILY Furosemide (Furosemide), 40 MG PO DAILY Insulin Aspart (Novolog Penfill), 60 UNITS SQ BID Insulin Detemir (Levemir Flextouch), 20 UNITS SQ HS Levofloxacin (Levaquin), 500 MG PO Q48H Lisinopril (Zestril), 40 MG PO QAM Metoprolol Succinate (Metoprolol Succinate ER), 75 MG PO QAM Metoprolol Succinate (Metoprolol Succinate ER), 50 MG PO QPM Metronidazole (Flagyl), 500 MG PO BID Ranitidine Hcl (Zantac), 300 MG PO DAILY Sodium Bicarbonate (Sodium Bicarbonate), 650 MG PO BID Tamsulosin HCl (Tamsulosin HCl), 0.4 MG PO HS Vancomycin HCl (Vancomycin HCl), 750 MG IV UD Vitamin B Cmplx/Vitc/Folic Ac (Nephrocaps), 1 CAP PO DAILY Warfarin Sod (Coumadin), 5 MG PO DAILY Scheduled PRN Hydrocodone/Acetaminophen 5MG/325MG ([place] 5MG/325MG), 1 TAB PO Q6H PRN for Pain Hydrocodone/Acetaminophen 5MG/325MG ([place] 5MG/325MG), 2 TABLETS PO Q6H PRN for Pain Ipratropium [place] (Atrovent Hfa), 2 PUFFS INH QID PRN for Shortness of Breath Ipratropium-Albuterol (Duoneb), 1 TREATMENT INH Q4H PRN for Shortness of Breath Meclizine HCl (Meclizine HCl), 25 MG PO Q4H PRN for Dizziness or Vertigo Trazodone HCl (Trazodone HCl), 150 MG PO HS PRN for Sleep Allergies Coded Allergies: No Known Allergies (Verified , 06/02/16) Physical Exam Vital Signs Date Time Temp Pulse Resp B/P Pulse Ox O2 Delivery O2 Flow Rate FiO2 06/30/16 14:12 71 16 133/53 06/30/16 13:12 70 06/30/16 12:26 36.5 75 18 120/44 94 Room Air 06/30/16 10:30 71 16 135/55 95 Room Air 06/30/16 09:58 69 06/30/16 08:50 71 16 169/70 06/30/16 07:20 65 16 134/61 95 Room Air 06/30/16 06:31 67 06/30/16 06:25 96 Room Air 06/30/16 06:25 95 Room Air 06/30/16 06:25 37.1 81 18 145/60 95 Room Air Physical Exam Vital signs reviewed. General: Chronically ill appearing male, in no significant distress. HEENT: No scleral icterus, PERRLA, neck supple. Atraumatic. Cardiovascular: Regular rate and rhythm, no extra sounds. Pulmonary: Crackles at the bases bilaterally, normal work of breathing. Abdomen: Soft, nontender, nondistended, positive bowel sounds. Musculoskeletal: Atraumatic, pitting edema bilaterally to lower extremities. Neurologic: Patient awake alert and oriented x 3, full strength in all 4 extremities. Cranial nerves 2 through 12 grossly intact. Skin: Warm, dry, no rash Medical Decision & Procedures ER Provider Diagnostic Interpretation: X-ray results as stated below per interpretation by me and the radiologist: CHEST ONE VIEW PORTABLE HISTORY: Short of breath. Weakness. COMPARISON: Chest 06/22/2016. FINDINGS: There are low lung volumes. The heart remains mildly enlarged. Mild diffuse interstitial thickening. No pneumothorax. Suspect trace bilateral pleural effusions. IMPRESSION: Cardiomegaly with diffuse interstitial thickening which is slightly improved. This favors mild pulmonary edema. There may be trace bilateral pleural effusions. Electronically signed by: Theodore Honeycutt M.D. 06/30/2016 7:11 AM Dictated Date/Time: 06/30/2016 7:10 AM Laboratory Results 06/30/16 06:33 Red Blood Count 3.22, Mean Corpuscular Volume 89.1, Mean Corpuscular Hemoglobin 29.2, Mean Corpuscular Hemoglobin Concent 32.8, Mean Platelet Volume 8.2, Neutrophils (%) (Auto) 50.7, Lymphocytes (%) (Auto) 30.6, Monocytes (%) (Auto) 14.0, Eosinophils (%) (Auto) 3.8, Basophils (%) (Auto) 0.6, Neutrophils # (Auto ) 4.69, Lymphocytes # (Auto) 2.83, Monocytes # (Auto) 1.30, Eosinophils # (Auto ) 0.35, Basophils # (Auto) 0.06 06/30/16 06:33 Test 06/30/16 06:33 White Blood Count 9.26 K/uL (4.8-10.8) Red Blood Count 3.22 M/uL (4.7-6.1) Hemoglobin 9.4 g/dL (14.0-18.0) Hematocrit 28.7 % (42-52) Mean Corpuscular Volume 89.1 fL (80-100) Mean Corpuscular Hemoglobin 29.2 pg (25-34) Mean Corpuscular Hemoglobin Concent 32.8 g/dl (32-36) Platelet Count 319 K/uL (130-400) Mean Platelet Volume 8.2 fL (7.4-10.4) Neutrophils (%) (Auto) 50.7 % Lymphocytes (%) (Auto) 30.6 % Monocytes (%) (Auto) 14.0 % Eosinophils (%) (Auto) 3.8 % Basophils (%) (Auto) 0.6 % Neutrophils # (Auto) 4.69 K/uL (1.4-6.5) Lymphocytes # (Auto) 2.83 K/uL (1.2-3.4) Monocytes # (Auto) 1.30 K/uL (0.11-0.59) Eosinophils # (Auto) 0.35 K/uL (0-0.5) Basophils # (Auto) 0.06 K/uL (0-0.2) RDW Standard Deviation 50.4 fL (36.4-46.3) RDW Coefficient of Variation 15.4 % (11.5-14.5) Immature Granulocyte % (Auto) 0.3 % Immature Granulocyte # (Auto) 0.03 K/uL (0.00-0.02) Prothrombin Time 12.3 SECONDS (9.0-12.0) Prothromb Time International Ratio 1.1 (0.9-1.1) Activated Partial Thromboplast Time 26.8 SECONDS (21.0-31.0) Partial Thromboplastin Ratio 1.0 Anion Gap 8.0 mmol/L (3-11) Est Creatinine Clear Calc Drug Dose 11.8 ml/min Estimated GFR () 8.0 Estimated GFR (Non- 6.9 BUN/Creatinine Ratio 3.6 (10-20) Calcium Level 8.7 mg/dl (8.5-10.1) Magnesium Level 2.6 mg/dl (1.8-2.4) Total Bilirubin 0.7 mg/dl (0.2-1) Direct Bilirubin 0.2 mg/dl (0-0.2) Aspartate Amino Transf (AST/SGOT) 29 U/L (15-37) Alanine Aminotransferase (ALT/SGPT) 20 U/L (12-78) Alkaline Phosphatase 203 U/L (45-117) Total Creatine Kinase 52 U/L (39-308) Creatine Kinase MB 1.3 ng/ml (0.5-3.6) Creatine Kinase MB Ratio 2.5 (0-3.0) Troponin I < 0.015 ng/ml (0-0.045) Total Protein 6.9 gm/dl (6.4-8.2) Albumin 2.5 gm/dl (3.4-5.0) Laboratory results per my review. ECG Indication: SOB/dyspnea Rate (beats per minute): 65 Rhythm: normal sinus Findings: no acute ischemic change, no ectopy, other (possible anterior infarct ) ED Course 0651: Past medical records reviewed. The patient was evaluated in room A3. A complete history and physical examination was performed. 1425: I reviewed the patient's case with Dr. Radha CRUZ. He will evaluate the patient for further management. 1433: Upon reevaluation, the patient is resting comfortably. I discussed laboratory and radiographic results with him. He verbalized agreement of the treatment plan. I spoke with Dr. Garcia of the [facility] Hospitalist Service. The patient will be evaluated for further management and care. Medical Decision The patient is a 75 year old male who presents to the ED with complaints of shortness of breath. Differentials include infections, reactive airway disease , pneumonia, pneumothorax, COPD, CHF, cardiac ischemia, pulmonary embolism, musculoskeletal, gastrointestinal, as well as others were entertained. This patient was evaluated and appeared to be in no significant distress. IV access was obtained and laboratory work was drawn. Patient's chest x-ray is consistent with some pulmonary edema. He has end-stage renal patient on hemodialysis. He missed his dialysis this morning as the nurses did not feel he was stable further treatment. Evaluation today is fairly unrevealing. The patient's troponin is negative. I did speak with Dr. Cunningham of nephrology who is assisting with dialysis arrangements. [facility] has declined the patient for admission. At this time he will be evaluated by the hospitalist service for admission, physical therapy evaluation for his frequent falls and dialysis treatment. He will likely require placement in a [facility] facility thereafter. Consults Time Called: 1423 Consulting Physician: Dr. Radha Thomas [facility] Returned Call: 1421 I reviewed the patient's case with Dr. Radha Thomas [facility]. He will evaluate the patient for further management. Impression Primary Impression: Pulmonary edema Additional Impressions: End-stage renal disease on hemodialysis Falls Scribe Attestation The scribe's documentation has been prepared under my direction and personally reviewed by me in its entirety. I confirm that the note above accurately reflects all work, treatment, procedures, and medical decision making performed by me. Departure Information Dispostion Being Evaluated By Hospitalist Referrals Obi Mendez M.D. (PCP) Problem Qualifiers
[2016-06-30 07:02] LABS: BASO % 0.6 %; BASO ABS # 0.06 K/uL (0-0.2); COMPLETE YES; EOS % 3.8 %; HEMATOCRIT 28.7 % (42-52); IG% 0.3 %; LYMPH % 30.6 %; LYMPH ABS # 2.83 K/uL (1.2-3.4); MEAN CELL VOLUME 89.1 fL (80-100); MEAN CORPUSCULAR HEMOGLOBIN 29.2 pg (25-34); MEAN CORPUSCULAR HGB CONC 32.8 g/dl (32-36); MEAN PLATELET VOLUME 8.2 fL (7.4-10.4); NEUT % 50.7 %; PLATELET COUNT 319 K/uL (130-400); RED BLOOD COUNT 3.22 M/uL (4.7-6.1); WHITE BLOOD COUNT 9.26 K/uL (4.8-10.8)
[2016-06-30 07:09] LABS: INR 1.1 (0.9-1.1); PROTHROMBIN TIME (PATIENT) 12.3 SECONDS (9.0-12.0)
--- NOTE | 2016-06-30 07:12 | DIAGNOSTIC IMAGING REPORT ---
CHEST ONE VIEW PORTABLE HISTORY: Short of breath. Weakness. COMPARISON: Chest 06/22/2016. FINDINGS: There are low lung volumes. The heart remains mildly enlarged. Mild diffuse interstitial thickening. No pneumothorax. Suspect trace bilateral pleural effusions. IMPRESSION: Cardiomegaly with diffuse interstitial thickening which is slightly improved. This favors mild pulmonary edema. There may be trace bilateral pleural effusions. Electronically signed by: Theodore Honeycutt M.D. 06/30/2016 7:11 AM Dictated Date/Time: 06/30/2016 7:10 AM
[2016-06-30 07:32] LABS: BUN/CREATININE RATIO 3.6 (10-20); CALCIUM 8.7 mg/dl (8.5-10.1); CKMB/CK RATIO 2.5 (0-3.0); CREATININE 7.1 mg/dl (0.60-1.40); MAGNESIUM 2.6 mg/dl (1.8-2.4); POTASSIUM 3.7 mmol/L (3.5-5.1)
--- NOTE | 2016-06-30 14:40 | Nephrology Consultation ---
Nephrology Consultation Date & Providers Date of Consultation: June 30, 2016. Primary Care Provider: Obi Mendez M.D. Referring Provider: Reason for Consultation Management for end-stage renal disease on hemodialysis. 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 nephrologic consult was requested to provide hemodialysis while inpatient Has patient missed his dialysis treatment today. Bre recently had prolong hospitalization and repeated hospital admission last week for multiple comorbidities including right foot osteomyelitis, had debridement and a prolonged antibiotic. 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 He also had fistulogram during last hospital admission. He was discharged to home 2 weeks ago with and had repeated hospital admission last week for AFib with RVR And was discharged home. He has end-stage renal disease secondary to hypertensive and diabetic nephropathy, currently on hemodialysis Tuesday, Tuesday, Tuesday at [facility] via left UE AV fistula. this morning when he went to the dialysis he was found to be very lethargic, looked vazquez to the dialysis nurses. did advised the patient to come to the emergency room for further evaluation and called the ambulance who brought the patient to ED. In the ED he mentioned that over last few days he has been feeling very weak, feeling like his knee is an legs are giving out. his p.o. intake has been poor and he was not able to sleep over last few days. his vital sign was found to be normal and electrolyte has been stable. Currently his main complain is has been unable to sleep for last few days and overall feels very weak and tired. Has mild shortness of breath, denies any chest pain, palpitation and diaphoresis. Did not have any fever or chills. No leukocytosis from lab. Case management and ER physician was trying to send patient to an acute rehab however could not work with patient's insurance. Allergies Coded Allergies: No Known Allergies (Verified , 06/02/16) Family History FH: diabetes mellitus AUNT FH: stroke GRANDMOTHER Heart disease Hypertension Kidney disease Social History Smoking Status: Former Smoker Drug Use: none Marital Status: Housing Status: lives with family Occupation: retired Review of Systems A complete review of systems was performed. Pertinent positives are noted above. All other systems are negative. Physical Exam Date Time Temp Pulse Resp B/P Pulse Ox O2 Delivery O2 Flow Rate FiO2 06/30/16 14:12 71 16 133/53 06/30/16 13:12 70 06/30/16 12:26 36.5 75 18 120/44 94 Room Air 06/30/16 10:30 71 16 135/55 95 Room Air 06/30/16 09:58 69 06/30/16 08:50 71 16 169/70 06/30/16 07:20 65 16 134/61 95 Room Air 06/30/16 06:31 67 06/30/16 06:25 96 Room Air 06/30/16 06:25 95 Room Air 06/30/16 06:25 37.1 81 18 145/60 95 Room Air GENERAL: Elderly male AAA x 3, pleasant, looks tired, pale, ill-appearing, not in any distress. HEENT: Atraumatic, normocephalic. NECK: Supple, no JVD, no carotid bruit appreciated. ENT: No sinus tenderness MOUTH and THROAT: Moist oral mucosa, no oral ulcer or pharyngeal erythema RESPIRATORY: Normal breathing efforts, no accessory muscle use, clear to auscultation bilaterally, no wheezes or rales. CARDIOVASCULAR: S1, S2 normal, rate rhythm regular. ABDOMEN: Soft, nontender, positive bowel sound. MUSCULOSKELETAL: No CVA tenderness. No joint swelling, erythema or tenderness. Normal range of motion. SKIN: No skin rash EXTREMITY: No lower extremity edema NEURO: No gross focal neurological deficit, speech fluent. PSYCHIATRY: Normal mood and judgment Laboratory Results Last 24 Hours Test 06/30/16 06:33 White Blood Count 9.26 K/uL Red Blood Count 3.22 M/uL Hemoglobin 9.4 g/dL Hematocrit 28.7 % Mean Corpuscular Volume 89.1 fL Mean Corpuscular Hemoglobin 29.2 pg Mean Corpuscular Hemoglobin Concent 32.8 g/dl Platelet Count 319 K/uL Mean Platelet Volume 8.2 fL Neutrophils (%) (Auto) 50.7 % Lymphocytes (%) (Auto) 30.6 % Monocytes (%) (Auto) 14.0 % Eosinophils (%) (Auto) 3.8 % Basophils (%) (Auto) 0.6 % Neutrophils # (Auto) 4.69 K/uL Lymphocytes # (Auto) 2.83 K/uL Monocytes # (Auto) 1.30 K/uL Eosinophils # (Auto) 0.35 K/uL Basophils # (Auto) 0.06 K/uL RDW Standard Deviation 50.4 fL RDW Coefficient of Variation 15.4 % Immature Granulocyte % (Auto) 0.3 % Immature Granulocyte # (Auto) 0.03 K/uL Prothrombin Time 12.3 SECONDS Prothromb Time International Ratio 1.1 Activated Partial Thromboplast Time 26.8 SECONDS Partial Thromboplastin Ratio 1.0 Sodium Level 138 mmol/L Potassium Level 3.7 mmol/L Chloride Level 98 mmol/L Carbon Dioxide Level 32 mmol/L Anion Gap 8.0 mmol/L Blood Urea Nitrogen 27 mg/dl Creatinine 7.10 mg/dl Est Creatinine Clear Calc Drug Dose 11.8 ml/min Estimated GFR () 8.0 Estimated GFR (Non- 6.9 BUN/Creatinine Ratio 3.6 Random Glucose 99 mg/dl Calcium Level 8.7 mg/dl Magnesium Level 2.6 mg/dl Total Bilirubin 0.7 mg/dl Direct Bilirubin 0.2 mg/dl Aspartate Amino Transf (AST/SGOT) 29 U/L Alanine Aminotransferase (ALT/SGPT) 20 U/L Alkaline Phosphatase 203 U/L Total Creatine Kinase 52 U/L Creatine Kinase MB 1.3 ng/ml Creatine Kinase MB Ratio 2.5 Troponin I < 0.015 ng/ml Total Protein 6.9 gm/dl Albumin 2.5 gm/dl Impression (1) End-stage renal disease on hemodialysis (2) Generalized weakness (3) Secondary hyperparathyroidism of renal origin (4) Anemia (5) Diabetic ulcer of right foot (6) Hypertension Bre is a 75-year-old gentlemen with end-stage renal disease on hemodialysis, hypertension, diabetes, admitted to the hospital with generalized weakness, missed dialysis and need for placement to acute rehab. Currently his vital sign and electrolyte stable and denies any significant symptoms. He recently had prolonged hospital course for osteomyelitis, treated with long course of antibiotic currently afebrile, no leukocytosis or any other symptom suggestive of recurrent infection or bacteremia. Unclear etiology for generalized weakness , ? recent recurrent prolonged hospitalization. Case management has been working on acute rehab however patient's insurance denied. Plan is to admit the patient and date dialysis of as his regular schedule and then continue to work on placement for acute rehab. Recommendations --Plan for dialysis this afternoon as his regular schedule --avoid IV fluid --Continue on nephrocap --PhosLo 2 tab with each meal --dose meds for GFR <10 --continue with Lasix and lisinopril -- Epogen 63984 units IV x 1 dose today with hemodialysis --patient will need rehab placement Thank you for allowing me to participate in your patient's care. It was a pleasure to see Bre This chart was completed utilizing [employer] Speech and voice recognition software. Grammatical errors, random word insertions, pronoun errors and incomplete sentences are occasional consequences of this system. Any questions or concerns about the content, text or information contained within the body of this dictation should be addressed directly to the physician for clarification.
[2016-06-30] MEDS ORDERED: MAGNESIUM HYDROXIDE SUSP 30 ML UDC PO PRN (16:00)
[2016-06-30] MEDS ORDERED: ONDANSETRON INJ 2 MG/ML 2 ML VIAL IV PRN (16:00)
[2016-06-30] MEDS ORDERED: POLYETHYLENE (MIRALAX) 17 GM PACK PO PRN (16:00)
[2016-06-30] MEDS ORDERED: HYDROCODONE/ACETAMOPHEN 5/325MG TAB PO PRN ×2 (16:00)
[2016-06-30] MEDS ORDERED: TRAZODONE HCL 50 MG TAB PO PRN (16:00)
[2016-06-30] MEDS ORDERED: ALBUT/IPRATROP 3MG/0.5MG NEB 3 ML VIAL INH PRN (16:00)
[2016-06-30] MEDS ORDERED: ACETAMINOPHEN 325 MG TAB PO PRN (16:00)
[2016-06-30] MEDS ORDERED: ALUMINUM/MAGNESIUM/SIMETH (MAALOX MAX) 30 ML UDC PO PRN (16:00)
[2016-06-30] MEDS ORDERED: IPRATROPIUM BROMIDE HFA INHALER INH PRN (16:00)
[2016-06-30] MEDS ORDERED: MECLIZINE HCL 25 MG TAB PO PRN (16:00)
--- NOTE | 2016-06-30 16:25 | History and Physical ---
History & Physical Date & Time of Service: June 30, 2016 at 16:16 Chief Complaint: Shortness Of Breath Primary Care Physician: Obi Mendez M.D. History of Present Illness Source: patient Mr. Carmichael is a 75 y/o male with PMHx of ESRD on HD, Paroxysmal Atrial Fibrillation, R Foot Gangrene (I&D) with Osteomyelitis who presents to the ED for reported SOB and generalized weakness. Patient was transported to ED by ALS from dialysis for reports of appearing "vazquez, short of breath, and weak". Due to these findings he did not receive dialysis. Upon further evaluation, patient initially states that he is not necessarily weak but has noticed his legs giving out at the knees. This has been occurring for the past 1-1/2 days however he feels that he has had difficulty ambulating throughout his home since returning home from his previous admission. He feels that he has been stumbling but has been able to catch himself and denies falls. He is concerned as he has numerous stairs in the house that he has difficulty living at home. He then stated that he is weaker then he was previously after these recent hospitalizations. He reports that he lives with his daughter. He has chronic bilateral lower extremity edema that he feels is at baseline and reports chronic peripheral neuropathy. At rest he denies leg pain however with ambulation he develops pain of R foot and utilizes a walking boot. In regards to the shortness of breath, he states that he has none currently and only occurs when he is ambulating and his legs are giving out. Previous hospital notes revealed some dyspnea on exertion that is not new. He does report a decreased appetite since returning home and some insomnia. Reports "wobbly eyes " and some blurred vision but could not elaborate more on this. States he vomited a few days ago but no new occurrence. He reports compliance with his antibiotics and medications. He has had 2 previous admissions from 06/02-06/20 and 06/23-06/24. He is currently on vancomycin, Flagyl, Levaquin from previous to admission and has not F/U with ID yet but reports foot ulcer is improving. In the ED, patient underwent PT/OT evaluations recommending acute rehab however was denied by insurance. He was unable to receive outpatient dialysis. He will be admitted for dialysis and SNF placement. 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 Status: Chronic Surgical Problems: (1) Status post arthroscopic knee surgery Status: Chronic Family History FH: diabetes mellitus AUNT FH: stroke GRANDMOTHER Heart disease Hypertension Kidney disease Social History Smoking Status: Former Smoker Smokeless Tobacco Use: No Alcohol Use: none Drug Use: none Marital Status: Housing status: lives with family Occupational Status: retired Immunizations History of Influenza Vaccine: Yes History of Tetanus Vaccine?: Unknown History of Pneumococcal: Yes Pneumococcal Date: Dec 22, 2007 History of Hepatitis B Vaccine: Unknown Multi-Drug Resistant Organisms History of MDRO: No Allergies Coded Allergies: No Known Allergies (Verified , 06/02/16) Home Medications Scheduled Amlodipine (Norvasc), 10 MG PO QAM Aspirin (Aspirin Ec), 81 MG PO QAM Atorvastatin (Atorvastatin Calcium), 20 MG PO DAILY Calcium Acetate (Phosphate Bin (Phoslo 667 Mg), 667 MG PO TID Chlordiazepoxide (Librium), 10 MG PO BID Cholecalciferol (Vitamin D3), 2,000 UNITS PO DAILY Furosemide (Furosemide), 40 MG PO DAILY Insulin Aspart (Novolog Penfill), 10-30 UNITS SQ BID Insulin Detemir (Levemir Flextouch), 20 UNITS SQ HS Levofloxacin (Levaquin), 500 MG PO Q48H Lisinopril (Zestril), 40 MG PO QAM Metoprolol Succinate (Metoprolol Succinate ER), 75 MG PO QAM Metoprolol Succinate (Metoprolol Succinate ER), 50 MG PO QPM Metronidazole (Flagyl), 500 MG PO BID Ranitidine Hcl (Zantac), 300 MG PO DAILY Sodium Bicarbonate (Sodium Bicarbonate), 650 MG PO BID Tamsulosin HCl (Tamsulosin HCl), 0.4 MG PO HS Vancomycin HCl (Vancomycin HCl), 750 MG IV UD Vitamin B Cmplx/Vitc/Folic Ac (Nephrocaps), 1 CAP PO DAILY Warfarin Sod (Coumadin), 5 MG PO DAILY Scheduled PRN Hydrocodone/Acetaminophen 5MG/325MG ([place] 5MG/325MG), 1 TAB PO Q6H PRN for Pain Hydrocodone/Acetaminophen 5MG/325MG ([place] 5MG/325MG), 2 TABLETS PO Q6H PRN for Pain Ipratropium [place] (Atrovent Hfa), 2 PUFFS INH QID PRN for Shortness of Breath Ipratropium-Albuterol (Duoneb), 1 TREATMENT INH Q4H PRN for Shortness of Breath Meclizine HCl (Meclizine HCl), 25 MG PO Q4H PRN for Dizziness or Vertigo Trazodone HCl (Trazodone HCl), 150 MG PO HS PRN for Sleep Review of Systems Constitutional: No chills, No fever, No weakness Eyes: + problem reported ("wobbly eyes" unable to describe in better detail) ENT: + problem reported (dry mouth), No nasal symptoms, No sore throat, No trouble swallowing Respiratory: + shortness of breath ("only when my legs give out" - currently resolved with rest), No cough Cardiovascular: No chest pain, No palpitations Abdomen: + vomiting (resolved - 2 episodes "few" days ago), No constipation, No diarrhea, No nausea, No pain Genitourinary - Male: + problem reported (chronic BPH issues; still creates urine), No dysuria Neurologic: + numbness/tingling (chronic peripheral neuropathy) Hematologic / Lymphatic: No abnormal bleeding/bruising, No clotting problems Integumentary: No rash Physical Exam Vital Signs Date Time Temp Pulse Resp B/P Pulse Ox O2 Delivery O2 Flow Rate FiO2 06/30/16 14:12 71 16 133/53 06/30/16 13:12 70 06/30/16 12:26 36.5 75 18 120/44 94 Room Air 06/30/16 10:30 71 16 135/55 95 Room Air 06/30/16 09:58 69 06/30/16 08:50 71 16 169/70 06/30/16 07:20 65 16 134/61 95 Room Air 06/30/16 06:31 67 06/30/16 06:25 96 Room Air 06/30/16 06:25 95 Room Air 06/30/16 06:25 37.1 81 18 145/60 95 Room Air General Appearance: WD/WN, no apparent distress Head: normocephalic, atraumatic Eyes: PERRL, sclerae normal ENT: hearing grossly normal Neck: supple, no JVD, trachea midline Respiratory/Chest: normal breath sounds, no respiratory distress, no accessory muscle use, + crackles (minimal at bases bilat) Cardiovascular: regular rate, rhythm, no gallop, no murmur Abdomen/GI: normal bowel sounds, non tender, soft Extremities/Musculoskelatal: + swelling (bilat pitting 3+ (reports baseline per patient); 2 ulcerations of R foot) Neurologic/Psych: alert, oriented x 3, + pertinent finding (no focal neurological deficits; facial movements symmetrical; decreased sensation to bilateral lower extremities; follows commands; neg slurred speech) Skin: warm/dry, no rash, + pallor Diagnostics Laboratory Results Results Past 24 Hours Test 06/30/16 06:33 Range/Units White Blood Count 9.26 4.8-10.8 K/uL Red Blood Count 3.22 4.7-6.1 M/uL Hemoglobin 9.4 14.0-18.0 g/dL Hematocrit 28.7 42-52 % Mean Corpuscular Volume 89.1 80-100 fL Mean Corpuscular Hemoglobin 29.2 25-34 pg Mean Corpuscular Hemoglobin Concent 32.8 32-36 g/dl Platelet Count 319 130-400 K/uL Mean Platelet Volume 8.2 7.4-10.4 fL Neutrophils (%) (Auto) 50.7 % Lymphocytes (%) (Auto) 30.6 % Monocytes (%) (Auto) 14.0 % Eosinophils (%) (Auto) 3.8 % Basophils (%) (Auto) 0.6 % Neutrophils # (Auto) 4.69 1.4-6.5 K/uL Lymphocytes # (Auto) 2.83 1.2-3.4 K/uL Monocytes # (Auto) 1.30 0.11-0.59 K/uL Eosinophils # (Auto) 0.35 0-0.5 K/uL Basophils # (Auto) 0.06 0-0.2 K/uL RDW Standard Deviation 50.4 36.4-46.3 fL RDW Coefficient of Variation 15.4 11.5-14.5 % Immature Granulocyte % (Auto) 0.3 % Immature Granulocyte # (Auto) 0.03 0.00-0.02 K/uL Prothrombin Time 12.3 9.0-12.0 SECONDS Prothromb Time International Ratio 1.1 0.9-1.1 Activated Partial Thromboplast Time 26.8 21.0-31.0 SECONDS Partial Thromboplastin Ratio 1.0 Sodium Level 138 136-145 mmol/L Potassium Level 3.7 3.5-5.1 mmol/L Chloride Level 98 98-107 mmol/L Carbon Dioxide Level 32 21-32 mmol/L Anion Gap 8.0 3-11 mmol/L Blood Urea Nitrogen 27 7-18 mg/dl Creatinine 7.10 0.60-1.40 mg/dl Est Creatinine Clear Calc Drug Dose 11.8 ml/min Estimated GFR () 8.0 Estimated GFR (Non- 6.9 BUN/Creatinine Ratio 3.6 10-20 Random Glucose 99 70-99 mg/dl Calcium Level 8.7 8.5-10.1 mg/dl Magnesium Level 2.6 1.8-2.4 mg/dl Total Bilirubin 0.7 0.2-1 mg/dl Direct Bilirubin 0.2 0-0.2 mg/dl Aspartate Amino Transf (AST/SGOT) 29 15-37 U/L Alanine Aminotransferase (ALT/SGPT) 20 12-78 U/L Alkaline Phosphatase 203 45-117 U/L Total Creatine Kinase 52 39-308 U/L Creatine Kinase MB 1.3 0.5-3.6 ng/ml Creatine Kinase MB Ratio 2.5 0-3.0 Troponin I < 0.015 0-0.045 ng/ml Total Protein 6.9 6.4-8.2 gm/dl Albumin 2.5 3.4-5.0 gm/dl Diagnostic Radiology CHEST ONE VIEW PORTABLE FINDINGS: There are low lung volumes. The heart remains mildly enlarged. Mild diffuse interstitial thickening. No pneumothorax. Suspect trace bilateral pleural effusions. IMPRESSION: Cardiomegaly with diffuse interstitial thickening which is slightly improved. This favors mild pulmonary edema. There may be trace bilateral pleural effusions. EKG Poor data quality, interpretation may be adversely affected Normal sinus rhythm Nonspecific ST and T wave abnormality When compared with ECG of 24-JUN-2016 06:23, Premature atrial complexes are no longer Present ST no longer elevated in Inferior leads Nonspecific T wave abnormality has replaced inverted T waves in Anterior leads QT has lengthened Confirmed by Obi Longoria ([id number]) on 06/30/2016 2:12:22 PM Impression Assessment and Plan Mr. Carmichael is a 75 y/o male with PMHx of ESRD on HD, Paroxysmal Atrial Fibrillation, R Foot Gangrene (I&D) with Osteomyelitis who presents to the ED for reported SOB and weakness. Patient was transported to ED by ALS from dialysis for reports of appearing "vazquez, short of breath, and weak". He denies further SOB and reports insomnia. He is normotensive and plans for inpatient dialysis with SNF placement tomorrow if possible. Generalized Weakness: - Reports leg "giving out" and pain with ambulation 2/2 foot ulcer and neuropathy - no focal neurological deficits, speech difficulties, or suggestion of TIA/CVA - however at risk given paroxysmal atrial fibrillation and subtherapeutic INR - previous hospital reports show patient was not taking his medication as he did not fill the script for Coumadin - low threshold for head CT if focal deficits occur - PT - eval in ED recommend inpatient rehab but insurance declined - did approve 5 days SNF Paroxysmal Atrial Fibrillation and Subtherapeutic INR: Currently NSR - INR 1.1 - continued non-compliance? - Metoprolol 75 mg in AM and 50 mg PM - Warfarin 5 mg daily Osteomyelitis R Foot: - Vancomycin 750 mg IV MWF with dialysis, and Flagyl 500 mg BID, and Levaquin 500 mg po Q48H (started on 06/25) - Reviewing records - it appears he was due for ID F/U on 07/02 - will need rescheduled - appears to continue ABx until follow-up - Wound consulted ESRD on HD: MWF - Phoslo TID and nephrocaps daily - Nephrology following - recieved dialysis as inpatient today with Procrit T2DM with Peripheral Neuropathy: - Discussed with ED pharmacist as suspicion for non-compliance as patient reports intermittent usage of insulins and fluctuating dosing - Reports that he adjusts nightly Levemir based on how is glucose runs and sometimes does not use it at all and he varies between 10-20 units with the aspart - Monitor for hypoglycemia - Levemir 20 units SC daily and SSI HTN: - Amlodipine 10 mg daily, Lasix 40 mg daily, Lisinopril 40 mg daily BPH: - Tamsulosin 0.4 mg daily DVT Prophylaxis: Coumadin Code Status: FULL RESUSCITATION Disposition: Possible SNF placement tomorrow Pt seen/examined - discussed case with PA, ER attending and Pt 75 y/o M sent from dialysis prior to receiving dialysis because "pt looked poor " - we do not know the actual reason they may have declined to provide dialysis today as he was nit reported to be hypotensive. The pt has exhibited weakness recently. His states his legs have been giving out and he is not able to ascend his stairs. He lives with his daughter and is not managing in his current situation. A valiant attempt was made by the ER staff to transport this pt directly to a rehab facility. This was not ultimately possible OE AAO x 3 S1,2 + mild murmur Decreased air at bases - no wheezing NT, ND P: Plan to schedule the pt for dialysis Arrangements have been made to transfer to rehab following - He is approved for 5 days however it is likely that he will need long-term placement. Maintain on home HTN meds Place on SS for DM Level of Care Med/Surg Resuscitation Status FULL RESUSCITATION VTE Prophylaxis VTE Risk Assessment Done? Y/N: Yes Risk Level: Moderate Given or contraindicated: Warfarin (Coumadin)
[2016-06-30] MEDS ORDERED: IV FLUIDS COMPLETED PRN (16:45)
[2016-06-30] MEDS: WARFARIN SOD 5 MG TAB PO SCH (18:35)
[2016-06-30] MEDS: CALCIUM ACETATE 667MG GELCAP PO SCH (18:35)
[2016-06-30] MEDS: EPOETIN ALFA 20,000 UNITS/ML VIAL IV SCH ×2 (18:38→21:55)
[2016-06-30] MEDS ORDERED: RASPBERRY SYRUP 5 ML UDP PO SCH (20:00)
[2016-06-30] MEDS ORDERED: VANCOMYCIN PO SCH (20:00)
[2016-06-30] MEDS ORDERED: INSULIN ASPART 100 UNITS/ML 3 ML PEN SQ SCH (21:00)
[2016-07-01] VITALS: BP 135/76; PULSE 72
[2016-07-01 00:15] VITALS: BP 154/74; PULSE 73
[2016-07-01 01:00] VITALS: BP 160/76; PULSE 74; TEMP 36.7
[2016-07-01] MEDS: SODIUM BICARBONATE 650 MG TAB PO SCH ×2 (01:12→07:54)
[2016-07-01] MEDS: METOPROLOL SUCC 50MG EXT REL TAB PO SCH ×3 (01:12→21:05)
[2016-07-01] MEDS: CHLORDIAZEPOXIDE 10 MG CAP PO SCH ×3 (01:12→21:04)
[2016-07-01] MEDS: METRONIDAZOLE 500 MG TAB PO SCH ×3 (01:13→21:20)
[2016-07-01] MEDS: INSULIN ASPART 100 UNITS/ML 3 ML PEN SC SCH ×5 (01:13→21:08)
[2016-07-01] MEDS: TAMSULOSIN HCL 0.4 MG CAP PO SCH ×2 (01:13→21:05)
[2016-07-01] MEDS: INSULIN DETEMIR FLEXPEN/FLEX TOUCH 100 UNITS/ML 3ML SQ SCH ×2 (01:14→21:00)
[2016-07-01] MEDS ORDERED: VANCOMYCIN INJ 750 MG in SODIUM CHLORIDE 0.9% 250ML 250 ML IV SCH (01:30)
[2016-07-01] MEDS: LISINOPRIL 40 MG TAB PO SCH (07:54)
[2016-07-01] MEDS: RANITIDINE HCL 150 MG TAB PO SCH (07:54)
[2016-07-01] MEDS: AMLODIPINE BESYLATE 5 MG TAB PO SCH (07:55)
[2016-07-01] MEDS: ATORVASTATIN 20 MG TAB PO SCH (07:55)
[2016-07-01] MEDS: NEPHROCAPS PO SCH (07:55)
[2016-07-01] MEDS: ASPIRIN 81 MG ECTAB PO SCH (07:55)
[2016-07-01] MEDS: FUROSEMIDE 40 MG TAB PO SCH (07:55)
[2016-07-01] MEDS: CALCIUM ACETATE 667MG GELCAP PO SCH ×3 (07:55→16:58)
--- NOTE | 2016-07-01 08:00 | Hospitalist Progress Note ---
Hospitalist Progress Note Date of Service July 01, 2016. Subjective Pt evaluation today including: conversation w/ patient, physical exam, chart review, lab review, review of studies, conversation w/ integration consultant Voiding: no voiding problems The patient was seen and examined this morning. Pt reports he is tired of being in the hospital and " I feel like a prized puppy". He admits to not ever picking up coumadin after previous admission. Symptomatically he is still the same, feels short of breath on exertion, a little weak and somewhat fatigued. He denies feeling irregular heartrate, palpitations, lightheaded or dizzy. He had dialysis around midnight last night and was not happy about that. He hates the food, (renal diet) but denies any abdominal complaints including n/v/d/c, and cannot wait to be discharged. ROS: 10 point ROS was reviewed and is otherwise negative. Objective Vital Signs Date Time Temp Pulse Resp B/P Pulse Ox O2 Delivery O2 Flow Rate FiO2 07/01/16 01:00 36.7 74 160/76 07/01/16 01:00 Room Air 07/01/16 00:15 73 154/74 07/01/16 00:00 72 135/76 06/30/16 23:45 74 144/66 06/30/16 23:30 73 145/64 06/30/16 23:15 74 120/73 06/30/16 23:00 72 125/67 06/30/16 22:45 74 124/63 06/30/16 22:30 70 143/66 06/30/16 22:15 77 125/70 06/30/16 22:00 71 140/67 06/30/16 21:45 70 153/69 06/30/16 21:30 69 137/61 06/30/16 21:15 69 142/69 06/30/16 21:00 71 132/71 06/30/16 20:45 69 124/59 06/30/16 20:30 73 143/65 06/30/16 20:20 36.7 70 152/68 06/30/16 18:08 36.3 69 20 169/67 97 Room Air 06/30/16 17:26 78 18 151/71 96 Room Air 06/30/16 16:12 Room Air 06/30/16 15:37 70 18 162/71 94 Room Air 06/30/16 14:12 71 16 133/53 06/30/16 13:12 70 06/30/16 12:26 36.5 75 18 120/44 94 Room Air 06/30/16 10:30 71 16 135/55 95 Room Air 06/30/16 09:58 69 06/30/16 08:50 71 16 169/70 Physical Exam General Appearance: WD/WN, no apparent distress Eyes: PERRL, EOMI ENT: hearing grossly normal, pharynx normal Neck: supple, no JVD Respiratory/Chest: chest non-tender, lungs clear, no respiratory distress, no accessory muscle use Cardiovascular: no murmur, + irregularly irregular Abdomen: normal bowel sounds, non tender, soft, no organomegaly Extremities: non-tender, no pedal edema, no calf tenderness, + pertinent finding (Left foot with kerlix dressing appears c/d/i, +Left lateral foot wound , 2+ pitting edema of left foot, right with 1+ pitting edema.) Neurologic/Psychiatric: no motor/sensory deficits, alert, oriented x 3 Skin: normal color, warm/dry Laboratory Results Last 24 Hours Test 07/01/16 01:04 07/01/16 04:44 Bedside Glucose 123 mg/dl Assessment and Plan Mr. Carmichael is a 75 y/o male with PMHx of ESRD on HD, Paroxysmal Atrial Fibrillation, R Foot Gangrene (I&D) with Osteomyelitis who presents to the ED for reported SOB and weakness. Patient was transported to ED by ALS from dialysis for reports of appearing "vazquez, short of breath, and weak". He denies further SOB and reports insomnia. He is normotensive and plans for inpatient dialysis with SNF placement tomorrow if possible. Generalized Weakness: - current cardiac exam sounds like he is in afib.- he has not been taking coumadin and is unlikely to do this when he leaves the hospital unless is in a SNF. Eliquis would be an option given his renal disease, however cost may be an issue. I doubt that the patient would take this medication if it is more expensive since he has not taken coumadin, and is largely noncompliant with all his other types of medications. - PT on board: got SNF approval for 5 days, CM assisting with placement. Referrals placed to [facility] and [facility]. - CXR reviewed from yesterday- Cardiomegaly with diffuse interstitial thickening which is slightly improved. This favors mild pulmonary edema. There may be trace bilateral pleural effusions. Paroxysmal Atrial Fibrillation and Subtherapeutic INR: Currently afib - INR 1.1 - continued non-compliance is likely - Metoprolol 75 mg in AM and 50 mg PM - Warfarin 5 mg daily Osteomyelitis R Foot: - Vancomycin 750 mg IV MWF with dialysis (started 06/23), and Flagyl 500 mg BID ( started 06/23)- need to continue for 2 weeks per ID and Wound on last admission, also finishing Levaquin 500 mg po Q48H (started on 06/25) and will finish tomorrow on 07/02 to complete a 7 day course. - Follow up scheduled with podiatry on 07/09 @ 1:00pm - Reviewing records - it appears he was due for ID F/U on 07/02 - will need rescheduled - appears to continue ABx until follow-up - Wound consulted ESRD on HD: MWF - Phoslo TID and nephrocaps daily - Nephrology following - received dialysis as inpatient today with Procrit T2DM with Peripheral Neuropathy: - Reports that he adjusts nightly Levemir based on how is glucose runs and sometimes does not use it at all and he varies between 10-20 units with the aspart - Monitor for hypoglycemia - Levemir 20 units SC daily and SSI HTN: - Amlodipine 10 mg daily, Lasix 40 mg daily, Lisinopril 40 mg daily BPH: - Tamsulosin 0.4 mg daily DVT Prophylaxis: Coumadin Code Status: FULL RESUSCITATION Disposition: Possible SNF placement today, will ask CM to assist with dc planning.
[2016-07-01 08:03] VITALS: BP 173/72; PULSE 75; TEMP 36.7; O2SAT 96
[2016-07-01 08:33] LABS: HEMATOCRIT 33.9 % (42-52); MEAN CELL VOLUME 90.4 fL (80-100); MEAN CORPUSCULAR HEMOGLOBIN 28.8 pg (25-34); MEAN CORPUSCULAR HGB CONC 31.9 g/dl (32-36); MEAN PLATELET VOLUME 8.3 fL (7.4-10.4); PLATELET COUNT 313 K/uL (130-400); RED BLOOD COUNT 3.75 M/uL (4.7-6.1); WHITE BLOOD COUNT 7.51 K/uL (4.8-10.8)
[2016-07-01 08:39] LABS: INR 1.1 (0.9-1.1); PROTHROMBIN TIME (PATIENT) 12.2 SECONDS (9.0-12.0)
[2016-07-01] MEDS ORDERED: LEVOFLOXACIN 500 MG TAB PO SCH (09:00)
[2016-07-01 09:15] LABS: BUN/CREATININE RATIO 2.6 (10-20); CREATININE 4.5 mg/dl (0.60-1.40); MAGNESIUM 2.4 mg/dl (1.8-2.4); POTASSIUM 4.3 mmol/L (3.5-5.1)
[2016-07-01] MEDS ORDERED: VANCOMYCIN CONSULT ACTIVE PRN (10:15)
--- NOTE | 2016-07-01 11:24 | Nephrology Progress Note ---
Nephrology Progress Note Date of Service July 01, 2016. Chief Complaint Management for end-stage renal disease on hemodialysis. Donna Díaz was seen and examined in his room this morning. He is feeling much better today, denies any shortness of breath or chest pain. He has been off bed went to the bathroom walk by himself without any problem. Was able to sleep last night, on trazodone. Had dialysis yesterday, currently blood pressure mildly elevated but volume status and electrolyte acceptable. Review of Systems A complete review of systems was performed. Pertinent positives are noted above. All other systems are negative. Vital Signs Last 8 Hrs Date Time Temp Pulse Resp B/P Pulse Ox O2 Delivery O2 Flow Rate FiO2 07/01/16 08:03 36.7 75 18 173/72 96 Room Air 07/01/16 01:00 36.7 74 160/76 07/01/16 01:00 Room Air I & O 24-Hour Column 07/01/16 08:00 Output Total 2334 ml Balance -2334 ml Last Recorded Weight Weight (Kilograms): 107.600 Physical Exam GENERAL: Elderly male , AAA x 3, pleasant, healthy-appearing, not in any distress. NECK: Supple, no JVD. RESPIRATORY: Normal breathing efforts, no accessory muscle use, clear to auscultation bilaterally, no wheezes or rales. CARDIOVASCULAR: S1, S2 normal, rate rhythm regular. EXTREMITY: No lower extremity edema NEURO: speech fluent. PSYCHIATRY: Normal mood and judgment Family History FH: diabetes mellitus AUNT FH: stroke GRANDMOTHER Heart disease Hypertension Kidney disease Social History Smoking Status: Unknown if ever smoked Smokeless Tobacco Use: No Alcohol Use: none Drug Use: none Marital Status: Housing Status: lives with family Occupation: retired Laboratory Results Past 24 Hours 07/01/16 08:15 Test 07/01/16 01:04 07/01/16 07:50 07/01/16 08:15 Bedside Glucose 123 mg/dl (70-99) 131 mg/dl (70-99) Red Blood Count 3.75 M/uL (4.7-6.1) Mean Corpuscular Volume 90.4 fL (80-100) Mean Corpuscular Hemoglobin 28.8 pg (25-34) Mean Corpuscular Hemoglobin Concent 31.9 g/dl (32-36) RDW Standard Deviation 52.0 fL (36.4-46.3) RDW Coefficient of Variation 15.7 % (11.5-14.5) Mean Platelet Volume 8.3 fL (7.4-10.4) Allergies Coded Allergies: No Known Allergies (Verified , 06/02/16) Medications Current Inpatient Medications Medications (Trade) Dose Ordered Sig/Eliseo Route Start Time Stop Time Status Last Admin Dose Admin Acetaminophen (Tylenol Tab) 650 mg Q4H PRN PO 06/30/16 16:00 07/30/16 15:59 Al Hydrox/Mg Hydrox/Simethicone (Maalox Max Susp) 15 ml Q4H PRN PO 06/30/16 16:00 07/30/16 15:59 Magnesium Hydroxide (Milk Of Magnesia Susp) 30 ml Q6H PRN PO 06/30/16 16:00 07/30/16 15:59 Polyethylene (Miralax Powder Packet) 17 gm DAILY PRN PO 06/30/16 16:00 07/30/16 15:59 Ondansetron HCl (Zofran Inj) 4 mg Q6H PRN IV 06/30/16 16:00 07/30/16 15:59 Amlodipine Besylate (Norvasc Tab) 10 mg QAM PO 07/01/16 09:00 07/31/16 08:59 07/01/16 07:55 10 MG Aspirin (Ecotrin Tab) 81 mg QAM PO 07/01/16 09:00 07/31/16 08:59 07/01/16 07:55 81 MG Atorvastatin Calcium (Lipitor Tab) 20 mg DAILY PO 07/01/16 09:00 07/31/16 08:59 07/01/16 07:55 20 MG Calcium Acetate (Phoslo Cap) 667 mg TIDM PO 06/30/16 17:46 07/30/16 17:59 07/01/16 07:55 667 MG Chlordiazepoxide (Librium Cap) 10 mg BID PO 06/30/16 21:00 07/30/16 20:59 07/01/16 07:57 10 MG Furosemide (Lasix Tab) 40 mg DAILY PO 07/01/16 09:00 07/31/16 08:59 07/01/16 07:55 40 MG Acetaminophen/ Hydrocodone Bitart (Phil Campbell 5/325 Tab) 1 tab Q6H PRN PO 06/30/16 16:00 07/14/16 15:59 Insulin Detemir (Levemir Flexpen/ FlexTouch) 20 unit HS SQ 06/30/16 21:00 07/30/16 20:59 Ipratropium Graham (Atrovent Hfa Inhaler) 2 puffs QID PRN INH 06/30/16 16:00 07/30/16 15:59 Albuterol/ Ipratropium (Duoneb) 3 ml Q4H PRN INH 06/30/16 16:00 07/30/16 15:59 Levofloxacin (Levaquin Tab) 500 mg Q48H PO 07/01/16 09:00 07/08/16 08:59 07/01/16 07:55 500 MG Lisinopril (Zestril Tab) 40 mg QAM PO 07/01/16 09:00 07/31/16 08:59 07/01/16 07:54 40 MG Meclizine HCl (Antivert Tab) 25 mg Q4H PRN PO 06/30/16 16:00 07/30/16 15:59 Metoprolol Succinate (Toprol Xl Tab) 50 mg QPM PO 06/30/16 21:00 07/30/16 20:59 07/01/16 01:12 50 MG Metoprolol Succinate (Toprol Xl Tab) 75 mg QAM PO 07/01/16 09:00 07/31/16 08:59 07/01/16 07:54 75 MG Metronidazole (Flagyl Tab) 500 mg BID PO 06/30/16 21:00 07/10/16 20:59 07/01/16 07:55 500 MG Sodium Bicarbonate (Sodium Bicarbonate Tab) 650 mg BID PO 06/30/16 21:00 07/30/16 20:59 07/01/16 07:54 650 MG Tamsulosin HCl (Flomax Cap) 0.4 mg HS PO 06/30/16 21:00 07/30/16 20:59 07/01/16 01:13 0.4 MG Vitamin B Complex/ Vit C/Folic Acid (Nephrocaps) 1 cap DAILY PO 07/01/16 09:00 07/31/16 08:59 07/01/16 07:55 1 CAP Warfarin Sodium (Coumadin Tab) 5 mg DAILY@1600 PO 06/30/16 16:00 07/30/16 15:59 06/30/16 18:35 5 MG Ranitidine HCl (zANTac TAB) 300 mg DAILY PO 07/01/16 09:00 07/31/16 08:59 07/01/16 07:54 300 MG Trazodone HCl (Desyrel Tab) 150 mg HS PRN PO 06/30/16 16:00 07/30/16 15:59 Miscellaneous (Iv Fluids Completed) 1 ea PRN PRN N/A 06/30/16 16:45 06/30/17 16:44 Insulin Aspart (novoLOG ASPART) SLIDING SCALE G... ACHS SC 06/30/16 21:00 07/30/16 20:59 Impression (1) End-stage renal disease on hemodialysis (2) Generalized weakness (3) Secondary hyperparathyroidism of renal origin (4) Anemia (5) Diabetic ulcer of right foot (6) Hypertension Bre is a 75-year-old gentlemen with end-stage renal disease on hemodialysis, hypertension, diabetes, admitted to the hospital with generalized weakness, missed dialysis and need for placement to acute rehab. Currently his vital sign and electrolyte stable and denies any significant symptoms. He recently had prolonged hospital course for osteomyelitis, treated with long course of antibiotic currently afebrile, no leukocytosis or any other symptom suggestive of recurrent infection or bacteremia. Unclear etiology for generalized weakness , ? recent recurrent prolonged hospitalization. On admission EKG otherwise unremarkable, troponin normal, currently sinus rhythm with rate control. During prior admission was evaluated by Cardiology, has well preserved GFR with mild diastolic dysfunction, no further cardiac workup indicated. Case management has been working on acute rehab. Recommendations --continue to monitor while inpatient, however ready to be discharged once them place available for acute rehab. --Continue on nephrocap --PhosLo 2 tab with each meal --dose meds for GFR <10 --continue with Lasix and lisinopril -- Epogen 26105 units IV x 1 dose today with hemodialysis --waiting on rehab placement
--- NOTE | 2016-07-01 13:13 | Discharge Instructions ---
Discharge Instructions Date of Service July 01, 2016. Admission Reason for Admission: Frequent Falls Discharge Discharge Diagnosis / Problem: Frequent Falls Discharge Goals Goal(s): Decrease discomfort, Improve function, Increase independence, Improve disease control Activity Recommendations Activity Limitations: resume your previous activity Lifting Limitations: no more than 25 pounds Exercise/Sports Limitations: none Shower/Bathe: no limitations Driving or Machine Use: DO NOT DRIVE . Instructions / Follow-Up Instructions / Follow-Up You were admitted to [facility] with overall weakness during dialysis so was admitted to the hospital. During your stay here you were treated with intravenous fluids, antibiotics which she was already on prior to this admission, and other supportive care. It is very important that you continue to take Coumadin as directed for paroxysmal atrial fibrillation! - Coumadin 5 mg daily, you will need to have your INR checked on 07/02/16 Continue taking all other medications as prescribed Antibiotics: Vancomycin 750 mg IV MWF with dialysis (started 06/23), and Flagyl 500 mg BID ( started 06/23)- need to continue for 2 weeks per Infectious disease and Wound on last admission, also finishing Levaquin 500 mg po Q48H (started on 06/25) and will finish tomorrow on 07/02 to complete a 7 day course. The patient needs follow up with both these services to determine the length of antibiotics needed. Follow-up: Follow-up with podiatry with Dr. Eder Rutledge on Tuesday07/09/16 at 1 PM Follow-up with infectious disease as per your last discharge instructions within a two-week timeframe. If possible, the facility to which she was discharged to show to arrange for transportation to improve follow-up compliance. He should see infectious disease by 07/09/16 with the physician who is available prior to this date. Patient should follow up with wound care within a two-week timeframe, this would be prior to 07/09/16 as well. Current Hospital Diet Patient's current hospital diet: Renal Diet, Diabetes Type 2 Diet Discharge Diet Recommended Diet: Diabetes Type 2 Diet, Renal Diet Pending Studies Studies pending at discharge: no Laboratory Results Hemoglobin A1c Test 06/17/16 06:09 Range/Units Estimated Average Glucose 157 mg/dl Hemoglobin A1c 7.1 H 4.5-5.6 % Medical Emergencies . Who to Call and When: Medical Emergencies: If at any time you feel your situation is an emergency, please call 911 immediately. . Non-Emergent Contact Non-Emergency issues call your: Primary Care Provider Call Non-Emergent contact if: you have a fever, temperature is above 100.5, your pain is not controlled, your pain is worsening, you have any medication questions . Past History Medical & Surgical History: (1) Generalized weakness (2) Osteomyelitis (3) Secondary hyperparathyroidism of renal origin (4) Anemia (5) Dyslipidemia (6) Hypertension (7) Diabetic ulcer of right foot (8) Diabetes mellitus, type II . "Provider Documentation" section prepared by Aurelia Brown. . VTE Core Measure Inpt VTE Proph given/why not?: Warfarin (Coumadin), T.E.D. Stockings, SCD's
--- NOTE | 2016-07-01 13:21 | Discharge Summary ---
Discharge Summary Date of Service July 01, 2016. Discharge Summary Admission Date: June 30, 2016 at 16:16 Discharge Date: July 01, 2016 Discharge Disposition: assisted facility Principal Diagnosis: Generalized weakness Problems/Secondary Diagnoses: ESRD on HD, Paroxysmal Atrial Fibrillation, R Foot Gangrene (I&D) with Osteomyelitis Immunizations: Have You Had Influenza Vaccine: Yes History of Tetanus Vaccine?: Unknown History of Pneumococcal: Yes Pneumococcal Date: Dec 22, 2007 History of Hepatitis B Vaccine: Unknown Procedures: CHEST ONE VIEW PORTABLE 06/30/16 IMPRESSION: Cardiomegaly with diffuse interstitial thickening which is slightly improved. This favors mild pulmonary edema. There may be trace bilateral pleural effusions. Consultations: Orthotics Wound Nephrology Medication Reconciliation Continued Medications: Amlodipine (Norvasc) 5 Mg Tab 10 MG PO QAM, TAB Aspirin (Aspirin Ec) 81 Mg Tab 81 MG PO QAM Atorvastatin (Atorvastatin Calcium) 20 Mg Tab 20 MG PO DAILY, #30 Calcium Acetate (Phosphate Bin (Phoslo 667 Mg) 667 Mg Cap 667 MG PO TID Chlordiazepoxide (Librium) 10 Mg Cap 10 MG PO BID, CAP Cholecalciferol (Vitamin D3) 2,000 Unit Cap 2000 UNITS PO DAILY, CAP Furosemide (Furosemide) 40 Mg Tab 40 MG PO DAILY, #120 Hydrocodone/Acetaminophen 5MG/325MG (Lyman 5MG/325MG) Tab 1 TAB PO Q6H PRN for Pain, TAB PRN PAIN Hydrocodone/Acetaminophen 5MG/325MG (Lyman 5MG/325MG) Tab 2 TABLETS PO Q6H PRN for Pain, TAB PRN PAIN Insulin Aspart (Novolog Penfill) 100 Unit/Ml Inj 10-30 UNITS SQ BID SLIDING SCALE BASED UPON BLOOD SUGAR Insulin Detemir (Levemir Flextouch) 100 Unit/Ml Inj 20 UNITS SQ HS Ipratropium [place] (Atrovent Hfa) 200 Puffs/3400 Mcg Aers 2 PUFFS INH QID PRN for Shortness of Breath, #12.9 GM 5 Refills Ipratropium-Albuterol (Duoneb) 3 Ml Nebu 1 TREATMENT INH Q4H PRN for Shortness of Breath, INHA Levofloxacin (Levaquin) 500 Mg Tab 500 MG PO Q48H for 12 Days, #6 TAB Take 1 tablet by mouth every 48 hours. First dose 06/25. Lisinopril (Zestril) 40 Mg Tab 40 MG PO QAM, TAB Meclizine HCl (Meclizine HCl) 25 Mg Tab 25 MG PO Q4H PRN for Dizziness or Vertigo Metoprolol Succinate (Metoprolol Succinate ER) 50 Mg Tabcr 75 MG PO QAM Metoprolol Succinate (Metoprolol Succinate ER) 50 Mg Tabcr 50 MG PO QPM Metronidazole (Flagyl) 500 Mg Tab 500 MG PO BID, TAB Ranitidine Hcl (Zantac) 300 Mg Tab 300 MG PO DAILY Sodium Bicarbonate (Sodium Bicarbonate) 650 Mg Tab 650 MG PO BID Tamsulosin HCl (Tamsulosin HCl) 0.4 Mg Cap 0.4 MG PO HS, #30 Trazodone HCl (Trazodone HCl) 150 Mg Tab 150 MG PO HS PRN for Sleep Vancomycin HCl (Vancomycin HCl) 100 Mg/Ml Inj 750 MG IV UD for 14 Days, #7 DOSE 0 Refills Tuesday, Tuesday, Tuesday with hemodialysis for 2 weeks. Vitamin B Cmplx/Vitc/Folic Ac (Nephrocaps) Cap 1 CAP PO DAILY for 90 Days, #90 CAP 3 Refills Warfarin Sod (Coumadin) 5 Mg Tab 5 MG PO DAILY Discharge Exam Pt evaluation today including: conversation w/ patient, physical exam, chart review, lab review, review of studies, conversation w/ business objects consultant Voiding: no voiding problems The patient was seen and examined this morning. Pt reports he is tired of being in the hospital and " I feel like a prized puppy". He admits to not ever picking up coumadin after previous admission. Symptomatically he is still the same, feels short of breath on exertion, a little weak and somewhat fatigued. He denies feeling irregular heartrate, palpitations, lightheaded or dizzy. He had dialysis around midnight last night and was not happy about that. He hates the food, (renal diet) but denies any abdominal complaints including n/v/d/c, and cannot wait to be discharged. ROS: 10 point ROS was reviewed and is otherwise negative. Objective - Hospitalist Objective Vital Signs Date Time Temp Pulse Resp B/P Pulse Ox O2 Delivery O2 Flow Rate FiO2 07/01/16 01:00 36.7 74 160/76 07/01/16 01:00 Room Air 07/01/16 00:15 73 154/74 07/01/16 00:00 72 135/76 06/30/16 23:45 74 144/66 06/30/16 23:30 73 145/64 06/30/16 23:15 74 120/73 06/30/16 23:00 72 125/67 06/30/16 22:45 74 124/63 06/30/16 22:30 70 143/66 06/30/16 22:15 77 125/70 06/30/16 22:00 71 140/67 06/30/16 21:45 70 153/69 06/30/16 21:30 69 137/61 06/30/16 21:15 69 142/69 06/30/16 21:00 71 132/71 06/30/16 20:45 69 124/59 06/30/16 20:30 73 143/65 06/30/16 20:20 36.7 70 152/68 06/30/16 18:08 36.3 69 20 169/67 97 Room Air 06/30/16 17:26 78 18 151/71 96 Room Air 06/30/16 16:12 Room Air 06/30/16 15:37 70 18 162/71 94 Room Air 06/30/16 14:12 71 16 133/53 06/30/16 13:12 70 06/30/16 12:26 36.5 75 18 120/44 94 Room Air 06/30/16 10:30 71 16 135/55 95 Room Air 06/30/16 09:58 69 06/30/16 08:50 71 16 169/70 Physical Exam General Appearance: WD/WN, no apparent distress Eyes: PERRL, EOMI ENT: hearing grossly normal, pharynx normal Neck: supple, no JVD Respiratory/Chest: chest non-tender, lungs clear, no respiratory distress, no accessory muscle use Cardiovascular: no murmur, + irregularly irregular Abdomen: normal bowel sounds, non tender, soft, no organomegaly Extremities: non-tender, no pedal edema, no calf tenderness, + pertinent finding (+ LUE AVF with palpable thrill, Left foot with kerlix dressing appears c/d/i, +Left lateral foot wound, 2+ pitting edema of left foot, right with 1+ pitting edema.) Neurologic/Psychiatric: no motor/sensory deficits, alert, oriented x 3 Skin: normal color, warm/dry Hospital Course H&P per Tova Jennings PA-C History of Present Illness Source: patient Mr. Carmichael is a 75 y/o male with PMHx of ESRD on HD, Paroxysmal Atrial Fibrillation, R Foot Gangrene (I&D) with Osteomyelitis who presents to the ED for reported SOB and generalized weakness. Patient was transported to ED by ALS from dialysis for reports of appearing "vazquez, short of breath, and weak". Due to these findings he did not receive dialysis. Upon further evaluation, patient initially states that he is not necessarily weak but has noticed his legs giving out at the knees. This has been occurring for the past 1-1/2 days however he feels that he has had difficulty ambulating throughout his home since returning home from his previous admission. He feels that he has been stumbling but has been able to catch himself and denies falls. He is concerned as he has numerous stairs in the house that he has difficulty living at home. He then stated that he is weaker then he was previously after these recent hospitalizations. He reports that he lives with his daughter. He has chronic bilateral lower extremity edema that he feels is at baseline and reports chronic peripheral neuropathy. At rest he denies leg pain however with ambulation he develops pain of R foot and utilizes a walking boot. In regards to the shortness of breath, he states that he has none currently and only occurs when he is ambulating and his legs are giving out. Previous hospital notes revealed some dyspnea on exertion that is not new. He does report a decreased appetite since returning home and some insomnia. Reports "wobbly eyes " and some blurred vision but could not elaborate more on this. States he vomited a few days ago but no new occurrence. He reports compliance with his antibiotics and medications. He has had 2 previous admissions from 06/02-06/20 and 06/23-06/24. He is currently on vancomycin, Flagyl, Levaquin from previous to admission and has not F/U with ID yet but reports foot ulcer is improving. In the ED, patient underwent PT/OT evaluations recommending acute rehab however was denied by insurance. He was unable to receive outpatient dialysis. He will be admitted for dialysis and SNF placement. Physical Exam Vital Signs Date Time Temp Pulse Resp B/P Pulse Ox O2 Delivery O2 Flow Rate FiO2 06/30/16 14:12 71 16 133/53 06/30/16 13:12 70 06/30/16 12:26 36.5 75 18 120/44 94 Room Air 06/30/16 10:30 71 16 135/55 95 Room Air 06/30/16 09:58 69 06/30/16 08:50 71 16 169/70 06/30/16 07:20 65 16 134/61 95 Room Air 06/30/16 06:31 67 06/30/16 06:25 96 Room Air 06/30/16 06:25 95 Room Air 06/30/16 06:25 37.1 81 18 145/60 95 Room Air General Appearance: WD/WN, no apparent distress Head: normocephalic, atraumatic Eyes: PERRL, sclerae normal ENT: hearing grossly normal Neck: supple, no JVD, trachea midline Respiratory/Chest: normal breath sounds, no respiratory distress, no accessory muscle use, + crackles (minimal at bases bilat) Cardiovascular: regular rate, rhythm, no gallop, no murmur Abdomen/GI: normal bowel sounds, non tender, soft Extremities/Musculoskelatal: + swelling (bilat pitting 3+ (reports baseline per patient); 2 ulcerations of R foot) Neurologic/Psych: alert, oriented x 3, + pertinent finding (no focal neurological deficits; facial movements symmetrical; decreased sensation to bilateral lower extremities; follows commands; neg slurred speech) Skin: warm/dry, no rash, + pallor Hospital Course: Mr. Carmichael is a 75 y/o male with PMHx of ESRD on HD, Paroxysmal Atrial Fibrillation, R Foot Gangrene (I&D) with Osteomyelitis who presents to the ED for reported SOB and weakness. Patient was transported to ED by ALS from dialysis for reports of appearing "vazquez, short of breath, and weak". He denies further SOB and reports insomnia. He is normotensive and plans for inpatient dialysis with SNF placement tomorrow if possible. Generalized Weakness: - current cardiac exam sounds like he is in afib.- he is asymptomatic currently. He has not been taking coumadin and is unlikely to do this when he leaves the hospital unless is in a SNF. Eliquis would be an option given his renal disease, however cost may be an issue. I doubt that the patient would take this medication if it is more expensive since he has not taken coumadin, and is largely noncompliant with all his other types of medications. - PT on board: got SNF approval for 5 days, CM assisting with placement. Referrals placed to [facility] and [facility]. - CXR reviewed from yesterday- Cardiomegaly with diffuse interstitial thickening which is slightly improved. This favors mild pulmonary edema. There may be trace bilateral pleural effusions. Paroxysmal Atrial Fibrillation and Subtherapeutic INR: Currently afib - INR 1.1 - continued non-compliance is likely - Metoprolol 75 mg in AM and 50 mg PM - Warfarin 5 mg daily- INR check needed on 07/02/16 Osteomyelitis R Foot: - Vancomycin 750 mg IV MWF with dialysis (started 06/23), and Flagyl 500 mg BID ( started 06/23)- need to continue for 2 weeks per ID and Wound on last admission, also finishing Levaquin 500 mg po Q48H (started on 06/25) and will finish tomorrow on 07/02 to complete a 7 day course. - Spoke with podiatry clinic, he did not have a follow up I&D scheduled for tomorrow per their records, he has missed the last 2 follow up appointments with Dr[address] Hart - Follow up scheduled with podiatry on 07/09 @ 1:00pm - Wound consulted- appreciate recs ESRD on HD: MWF - Phoslo TID and nephrocaps daily - Nephrology following - received dialysis as inpatient today with Procrit T2DM with Peripheral Neuropathy: - Reports that he adjusts nightly Levemir based on how is glucose runs and sometimes does not use it at all and he varies between 10-20 units with the aspart - Monitor for hypoglycemia - Levemir 20 units SC daily and SSI HTN: - Amlodipine 10 mg daily, Lasix 40 mg daily, Lisinopril 40 mg daily BPH: - Tamsulosin 0.4 mg daily DVT Prophylaxis: Coumadin, teds, scds Code Status: FULL RESUSCITATION Total Time Spent: Greater than 30 minutes This includes examination of the patient, discharge planning, medication reconciliation, and communication with other providers. Discharge Instructions Please refer to the electronic Patient Visit Report (Discharge Instructions) for additional information. Follow-Up Follow up with your Primary Care Provider at [facility] within 24-48 hours of arrival Follow up scheduled with podiatry on 07/09 @ 1:00pm Follow up with infectious disease before 07/09/16. Follow up with wound care before 07/09/16. Additional Copies To Obi Mendez M.D.
--- NOTE | 2016-07-01 14:35 | Pharmacy Progress Note ---
Pharmacy Abx Initial Consult Date of Service July 01, 2016. Pharmacy Dosing Scope Date of Consult: 07/01/16 Consultation requested by: Brenda Jennings Pharmacy is consulted to initiate vancomycin IV dosing therapy, order appropriate labs and adjust drug dose/frequency. Subjective The patient is a 75 year old male admitted on June 30, 2016 at 16:16. Objective Height (Feet): 6 Height (Inches): 1.00 Weight (Kilograms): 107.600 Vital Signs (Past 12Hrs) Vital Signs Past 12 Hours Date Time Temp Pulse Resp B/P Pulse Ox O2 Delivery O2 Flow Rate FiO2 07/01/16 08:15 Room Air 07/01/16 08:03 36.7 75 18 173/72 96 Room Air Lab Results (24Hrs) Test 07/01/16 07:50 07/01/16 08:15 07/01/16 11:24 Bedside Glucose 131 mg/dl (70-99) 171 mg/dl (70-99) White Blood Count 7.51 K/uL (4.8-10.8) Red Blood Count 3.75 M/uL (4.7-6.1) Hemoglobin 10.8 g/dL (14.0-18.0) Hematocrit 33.9 % (42-52) Mean Corpuscular Volume 90.4 fL (80-100) Mean Corpuscular Hemoglobin 28.8 pg (25-34) Mean Corpuscular Hemoglobin Concent 31.9 g/dl (32-36) RDW Standard Deviation 52.0 fL (36.4-46.3) RDW Coefficient of Variation 15.7 % (11.5-14.5) Platelet Count 313 K/uL (130-400) Mean Platelet Volume 8.3 fL (7.4-10.4) Prothrombin Time 12.2 SECONDS (9.0-12.0) Prothromb Time International Ratio 1.1 (0.9-1.1) Sodium Level 138 mmol/L (136-145) Potassium Level 4.3 mmol/L (3.5-5.1) Chloride Level 101 mmol/L (98-107) Carbon Dioxide Level 32 mmol/L (21-32) Anion Gap 5.0 mmol/L (3-11) Blood Urea Nitrogen 12 mg/dl (7-18) Creatinine 4.50 mg/dl (0.60-1.40) Est Creatinine Clear Calc Drug Dose 18.5 ml/min Estimated GFR () 13.9 Estimated GFR (Non- 12.0 BUN/Creatinine Ratio 2.6 (10-20) Random Glucose 145 mg/dl (70-99) Calcium Level 9.0 mg/dl (8.5-10.1) Magnesium Level 2.4 mg/dl (1.8-2.4) Micro Results Date/Time Source Procedure Growth Status 07/01/16 10:15 Drainage-Deep Foot Right Gram Stain Pending Received 07/01/16 10:15 Drainage-Deep Foot Right Wound Culture Pending Received Risk Factors for Resistance * Hospitalization for 48 hours or more within the past 90 days * Chronic dialysis within the past 30 days * Antimicrobial use within the last 90 days: Vancomycin, Levofloxacin, Metronidazole [employer] Assessment & Plan Assessment 75 year old male admitted to [facility] - he has been continued on his outpatient regimen Vancomycin IV, Levofloxacin PO, and Metronidazole PO Plan continue home ABX for treatment of osteomyelitis. 1.) Vancomycin IV * 750mg IV x1 dose on 07/01 @0130 * Random level pre-HD on 07/02/16 * re-dose PRN based on pre-HD level 2.) Levofloxacin PO * 500mg PO every 48 hours * may consider monitoring QTc as it was slightly prolonged on admission 3.) Metronidazole PO * 500mg PO every 12 hours Pharmacy will continue to follow and will adjust dose/frequency as necessary. Thank you.
[2016-07-01] MEDS: WARFARIN SOD 5 MG TAB PO SCH (15:09)
[2016-07-02] VITALS (21 sets, daily range): BP systolic 103–166; BP diastolic 41–75; PULSE 60–75; TEMP 36.4–37.2; O2SAT 94–95
[2016-07-02] MEDS: CALCIUM ACETATE 667MG GELCAP PO SCH ×3 (08:00→17:02)
[2016-07-02] MEDS: METRONIDAZOLE 500 MG TAB PO SCH (08:00)
[2016-07-02] MEDS: ATORVASTATIN 20 MG TAB PO SCH (08:01)
[2016-07-02] MEDS: ASPIRIN 81 MG ECTAB PO SCH (08:01)
[2016-07-02] MEDS: RANITIDINE HCL 150 MG TAB PO SCH (08:02)
[2016-07-02] MEDS: NEPHROCAPS PO SCH (08:02)
[2016-07-02] MEDS: CHLORDIAZEPOXIDE 10 MG CAP PO SCH (08:10)
[2016-07-02] MEDS: INSULIN ASPART 100 UNITS/ML 3 ML PEN SC SCH ×3 (08:10→17:01)
--- NOTE | 2016-07-02 10:02 | Dialysis Progress Note ---
Hemodialysis Note Date of Service July 02, 2016. Chief Complaint F/U for end-stage renal disease on hemodialysis. Donna Díaz was seen and examined during HD this am. He has been tolerating well, BP stable, no dizziness, hypotension. Review of Systems A complete review of systems was performed. Pertinent positives are noted above. All other systems are negative. Vital Signs Last 8 Hrs Date Time Temp Pulse Resp B/P Pulse Ox O2 Delivery O2 Flow Rate FiO2 07/02/16 09:30 61 106/56 07/02/16 09:15 64 148/68 07/02/16 09:00 63 129/55 07/02/16 07:43 37.2 66 18 161/70 94 I & O 24-Hour Column 07/02/16 08:00 Intake Total 925 ml Balance 925 ml Last Recorded Weight Weight (Kilograms): 107.600 Physical Exam GENERAL: Elderly male , AAA x 3, pleasant, healthy-appearing, not in any distress. NECK: Supple, no JVD. RESPIRATORY: Normal breathing efforts, no accessory muscle use, clear to auscultation bilaterally, no wheezes or rales. CARDIOVASCULAR: S1, S2 normal, rate rhythm regular. EXTREMITY: No lower extremity edema. left radiocephalic AVf with thrill and bruit. NEURO: speech fluent. PSYCHIATRY: Normal mood and judgment Social History Smoking Status: Unknown if ever smoked Smokeless Tobacco Use: No Alcohol Use: none Drug Use: none Marital Status: Housing Status: lives with family Occupation: retired Laboratory Results Past 24 Hours Test 07/01/16 11:24 07/01/16 16:27 07/01/16 20:27 07/02/16 04:44 Bedside Glucose 171 mg/dl (70-99) 201 mg/dl (70-99) 234 mg/dl (70-99) Test 07/02/16 07:32 Bedside Glucose 142 mg/dl (70-99) Allergies Coded Allergies: No Known Allergies (Verified , 06/02/16) Medications Current Inpatient Medications Medications (Trade) Dose Ordered Sig/Eliseo Route Start Time Stop Time Status Last Admin Dose Admin Acetaminophen (Tylenol Tab) 650 mg Q4H PRN PO 06/30/16 16:00 07/30/16 15:59 Al Hydrox/Mg Hydrox/Simethicone (Maalox Max Susp) 15 ml Q4H PRN PO 06/30/16 16:00 07/30/16 15:59 Magnesium Hydroxide (Milk Of Magnesia Susp) 30 ml Q6H PRN PO 06/30/16 16:00 07/30/16 15:59 Polyethylene (Miralax Powder Packet) 17 gm DAILY PRN PO 06/30/16 16:00 07/30/16 15:59 Ondansetron HCl (Zofran Inj) 4 mg Q6H PRN IV 06/30/16 16:00 07/30/16 15:59 Amlodipine Besylate (Norvasc Tab) 10 mg QAM PO 07/01/16 09:00 07/31/16 08:59 07/01/16 07:55 10 MG Aspirin (Ecotrin Tab) 81 mg QAM PO 07/01/16 09:00 07/31/16 08:59 07/02/16 08:01 81 MG Atorvastatin Calcium (Lipitor Tab) 20 mg DAILY PO 07/01/16 09:00 07/31/16 08:59 07/02/16 08:01 20 MG Calcium Acetate (Phoslo Cap) 667 mg TIDM PO 06/30/16 17:46 07/30/16 17:59 07/02/16 08:00 667 MG Chlordiazepoxide (Librium Cap) 10 mg BID PO 06/30/16 21:00 07/30/16 20:59 07/02/16 08:10 10 MG Furosemide (Lasix Tab) 40 mg DAILY PO 07/01/16 09:00 07/31/16 08:59 07/01/16 07:55 40 MG Acetaminophen/ Hydrocodone Bitart (Lamar 5/325 Tab) 1 tab Q6H PRN PO 06/30/16 16:00 07/14/16 15:59 Insulin Detemir (Levemir Flexpen/ FlexTouch) 20 unit HS SQ 06/30/16 21:00 07/30/16 20:59 Ipratropium [place] (Atrovent Hfa Inhaler) 2 puffs QID PRN INH 06/30/16 16:00 07/30/16 15:59 Albuterol/ Ipratropium (Duoneb) 3 ml Q4H PRN INH 06/30/16 16:00 07/30/16 15:59 Levofloxacin (Levaquin Tab) 500 mg Q48H PO 07/01/16 09:00 07/08/16 08:59 07/01/16 07:55 500 MG Lisinopril (Zestril Tab) 40 mg QAM PO 07/01/16 09:00 07/31/16 08:59 07/01/16 07:54 40 MG Meclizine HCl (Antivert Tab) 25 mg Q4H PRN PO 06/30/16 16:00 07/30/16 15:59 Metoprolol Succinate (Toprol Xl Tab) 50 mg QPM PO 06/30/16 21:00 07/30/16 20:59 07/01/16 21:05 50 MG Metoprolol Succinate (Toprol Xl Tab) 75 mg QAM PO 07/01/16 09:00 07/31/16 08:59 07/01/16 07:54 75 MG Metronidazole (Flagyl Tab) 500 mg BID PO 06/30/16 21:00 07/10/16 20:59 07/02/16 08:00 500 MG Tamsulosin HCl (Flomax Cap) 0.4 mg HS PO 06/30/16 21:00 07/30/16 20:59 07/01/16 21:05 0.4 MG Vitamin B Complex/ Vit C/Folic Acid (Nephrocaps) 1 cap DAILY PO 07/01/16 09:00 07/31/16 08:59 07/02/16 08:02 1 CAP Warfarin Sodium (Coumadin Tab) 5 mg DAILY@1600 PO 06/30/16 16:00 07/30/16 15:59 07/01/16 15:09 5 MG Ranitidine HCl (zANTac TAB) 300 mg DAILY PO 07/01/16 09:00 07/31/16 08:59 07/02/16 08:02 300 MG Trazodone HCl (Desyrel Tab) 150 mg HS PRN PO 06/30/16 16:00 07/30/16 15:59 Miscellaneous (Iv Fluids Completed) 1 ea PRN PRN N/A 06/30/16 16:45 06/30/17 16:44 Insulin Aspart (novoLOG ASPART) SLIDING SCALE G... ACHS SC 06/30/16 21:00 07/30/16 20:59 07/02/16 08:10 3 UNITS Vancomycin HCl (Consult) 1 ea UD PRN N/A 07/01/16 10:15 07/31/16 10:14 Impression (1) End-stage renal disease on hemodialysis (2) Generalized weakness (3) Secondary hyperparathyroidism of renal origin (4) Anemia (5) Diabetic ulcer of right foot (6) Hypertension Bre is a 75-year-old gentlemen with end-stage renal disease on hemodialysis, hypertension, diabetes, admitted to the hospital with generalized weakness, missed dialysis and need for placement to acute rehab. Currently his vital sign and electrolyte stable and denies any significant symptoms. He recently had prolonged hospital course for osteomyelitis, treated with long course of antibiotic currently afebrile, no leukocytosis or any other symptom suggestive of recurrent infection or bacteremia. Unclear etiology for generalized weakness , ? recent recurrent prolonged hospitalization. On admission EKG otherwise unremarkable, troponin normal, currently sinus rhythm with rate control. During prior admission was evaluated by Cardiology, has well preserved GFR with mild diastolic dysfunction, no further cardiac workup indicated. He will be going to [facility] rehab. Recommendations --tolerating HD well, possible DC this afternoon. --Continue on nephrocap --PhosLo 2 tab with each meal --dose meds for GFR <10 --continue with Lasix and lisinopril -- Epogen 79945 units IV x 1 dose given with hemodialysis --waiting on rehab placement
[2016-07-02] MEDS ORDERED: RASPBERRY SYRUP 5 ML UDP PO SCH (12:00)
[2016-07-02] MEDS ORDERED: VANCOMYCIN PO SCH (12:00)
[2016-07-02 12:44] LABS: MEAN CELL VOLUME 88.8 fL (80-100); MEAN CORPUSCULAR HEMOGLOBIN 28.9 pg (25-34); MEAN CORPUSCULAR HGB CONC 32.6 g/dl (32-36); MEAN PLATELET VOLUME 8.7 fL (7.4-10.4); PLATELET COUNT 295 K/uL (130-400); RED BLOOD COUNT 3.49 M/uL (4.7-6.1); WHITE BLOOD COUNT 7.53 K/uL (4.8-10.8)
[2016-07-02 13:58] LABS: BUN/CREATININE RATIO 2.8 (10-20); CALCIUM 7.8 mg/dl (8.5-10.1); CREATININE 2.4 mg/dl (0.60-1.40); MAGNESIUM 2.2 mg/dl (1.8-2.4)
--- NOTE | 2016-07-02 14:19 | CONSULTATION REPORT ---
DATE OF CONSULTATION: 07/01/2016 INPATIENT CONSULTATION SUBJECTIVE: The patient is known to the wound clinic having been treated for a prior diabetic foot ulcer on the right foot. The patient is currently admitted today due to generalized weakness and shortness of breath. This occurred while the patient was at dialysis. The patient today denies any complaints of chest pain, shortness of breath, abdominal discomfort, nausea or vomiting. The patient denies any increased pain in the right foot. The patient states that he has had difficulty with ulceration in this foot and recently underwent surgical excision of an area of bone infection in the foot. The patient states he has been having a drainage from the area since, but denies any fever, chills or night sweats. The patient denies any other systemic complaints. There is no appreciable change in the patient's past medical history since being seen and evaluated back in March. The patient is a diabetic. OBJECTIVE: VITAL SIGNS: The patient's vital signs were reviewed and found to be unremarkable. The patient is afebrile. GENERAL: The patient is lying in the hospital bed in no acute distress, alert and cooperative throughout the examination. EXTREMITIES: Reveals the presence of a postoperative wound on the right foot lateral aspect over the distal fifth metatarsal measuring 2 x 1 x 3 cm. There is a central slough present at this site. There is no active drainage or significant periwound erythema. There is also a plantar ulceration present measuring 1 x 0.7 x 0.1 cm. There is no periwound erythema at this site or active drainage. Range of motion is intact. The patient is neuropathic. ASSESSMENT: 1. Postoperative nonhealing wound with associated underlying osteomyelitis of the right foot. 2. Diabetic foot ulcer, Avitia grade 1, right foot. PLAN: At this time, the site did require debridement at the postoperative area. With the patient's permission, the central slough and some subcutaneous tissue was removed with scissors and forceps. No significant bleeding occurred. This site will be managed with a wound VAC using black foam, 125 mm of negative pressure. Wound VAC changed 3 times weekly. The plantar ulceration will be managed with Aquacel AG and gauze, changed daily. Orthotics consultation will be obtained for ongoing, offloading issues with this patient. The patient will continue to be monitored while an inpatient and seen in the outpatient environment weekly. This represented an excisional debridement of less than 20 square cm.
[2016-07-02] MEDS: LISINOPRIL 40 MG TAB PO SCH (14:28)
[2016-07-02] MEDS: FUROSEMIDE 40 MG TAB PO SCH (14:29)
[2016-07-02] MEDS: AMLODIPINE BESYLATE 5 MG TAB PO SCH (14:29)
[2016-07-02] MEDS: METOPROLOL SUCC 50MG EXT REL TAB PO SCH (14:30)
[2016-07-02] MEDS: WARFARIN SOD 5 MG TAB PO SCH (15:24)
--- NOTE | 2016-07-02 16:31 | Pharmacy Progress Note ---
Pharmacy Abx Dose Short Note Date of Service July 02, 2016. Assessment & Plan Assessment 75 year old male continued on outpatient regimen of Vancomycin IV, Levofloxacin PO, and Metronidazole PO for osteomyelitis Right foot drainage is growing coag neg staph Risk Factors for resistant organisms: * Hospitalization for 48 hours or more within the past 90 days * Chronic dialysis within the past 30 days * Antimicrobial use within the last 90 days: Vancomycin, Levofloxacin, Metronidazole STOCK COUNTER Plan Continue home regimen for treatment of osteomyelitis. Vancomycin IV * Patient was given a dose of 750mg IV on 07/01 @0130 * Random pre-HD level was ordered for 07/02 am, however, this level was drawn post-HD * Random level was 9.9 mcg/mL (ideally post-HD levels should be drawn 6 hours after HD to allow for redistribution of vanc) * Patient has been ordered 750 mg IV today * No further levels ordered because patient is to be discharged tonight Thank you for this consult.
[2016-07-02] MEDS ORDERED: VANCOMYCIN INJ 750 MG in SODIUM CHLORIDE 0.9% 250ML 250 ML IV SCH (17:30)
[2016-07-08] MEDS ORDERED: NF1420 PO (14:08)
[2016-07-13] MEDS ORDERED: FRS/40 PO (17:57)
[2016-07-13] MEDS ORDERED: METO25TA3 PO (17:57)
[2016-07-13] MEDS ORDERED: ALLO100T PO (17:57)
[2016-07-13] MEDS ORDERED: LIDO4CRE10 TOP (17:57)
[2016-07-16] MEDS ORDERED: NUTR-7 PO (11:21)
[2016-07-16] MEDS ORDERED: HYDR-5688 PO (11:21)
[2016-07-16] MEDS ORDERED: VLTG EXT (11:21)
[2016-07-16] MEDS ORDERED: B-COCAP20 PO (11:21)
[2016-07-19] MEDS ORDERED: NVLGIPEN SC (16:27)
[2016-07-19] MEDS ORDERED: VLTG EXT (16:27)
[2016-07-19] MEDS ORDERED: CMD3 PO (16:28)
[2016-07-19] MEDS ORDERED: INSU3INJ3 SQ (16:35)
[2016-07-19] MEDS ORDERED: OXYC-57 PO (17:07)
[2016-07-29] MEDS ORDERED: GABA-112 PO (13:17)
== END 2016-07-02 17:28 ==
LOC: ENRESERVTM → ENRESERVDT → EDBD 06:16 → C.EDA 06:18 → C.MS2W 16:16
PROVIDERS: ADMIT Internal Medicine; ATTEND Internal Medicine
DX: R53.1 Weakness (principal); I48.0 Paroxysmal atrial fibrillation; E11.22 Type 2 diabetes mellitus with diabetic chronic kidney disease; I12.0 Hypertensive chronic kidney disease with stage 5 chronic kidney disease or end stage renal disease; N18.6 End stage renal disease; E11.42 Type 2 diabetes mellitus with diabetic polyneuropathy; Z99.2 Dependence on renal dialysis; E11.621 Type 2 diabetes mellitus with foot ulcer; D47.2 Monoclonal gammopathy; D64.9 Anemia, unspecified; N25.81 Secondary hyperparathyroidism of renal origin; I96 Gangrene, not elsewhere classified; M86.8X7 Other osteomyelitis, ankle and foot; M1A.9XX0 Chronic gout, unspecified, without tophus (tophi); N40.0 Benign prostatic hyperplasia without lower urinary tract symptoms; Z79.82 Long term (current) use of aspirin; Z79.4 Long term (current) use of insulin; Z79.899 Other long term (current) drug therapy; Z79.01 Long term (current) use of anticoagulants; Z87.891 Personal history of nicotine dependence; Z82.49 Family history of ischemic heart disease and other diseases of the circulatory system

== ENCOUNTER 2016-07-13 16:25 | Inpatient (IN) | payer OTHER ==
[~2016-07-13] VITALS: Ht 185.4 cm; Wt 98.4 kg
[~2016-07-13 16:25] MED LIST changes: +ASPI-232 PO; +B-CO1CAP17 PO; +LBR10 PO; +LEVO-17 PO; +LSN40 PO; +LVMI SC; +LVMIPEN SC; +METO50TA7 PO; +MTR500 PO; +NF1420 PO; +NRV5 PO; +TPRSR25 PO
--- NOTE | 2016-07-13 17:00 | DIAGNOSTIC IMAGING REPORT ---
SINGLE VIEW CHEST CLINICAL HISTORY: Fever. Sepsis. FINDINGS: An AP, portable, upright chest radiograph is compared to study dated 06/30/2016. The examination is degraded by portable technique and patient rotation. The heart is enlarged and there is atherosclerotic calcification of the thoracic aorta. Pulmonary vascular congestion persists. More focal airspace consolidation is suggested at the left lung base. Trace pleural effusions are noted. No pneumothorax is seen. The skeletal structures are osteopenic. Degenerative change is noted throughout the thoracic spine. IMPRESSION: 1. Cardiomegaly and pulmonary vascular congestion. 2. There are developing airspace opacities at the left lung base. Correlate clinically for evidence of superimposed pneumonia. 3. Trace pleural effusions. Electronically signed by: Allan Guerrero M.D. 07/13/2016 4:59 PM Dictated Date/Time: 07/13/2016 4:57 PM
[2016-07-13 17:15] LABS: BASO % 0.7 %; BASO ABS # 0.09 K/uL (0-0.2); COMPLETE YES; EOS % 3.4 %; IG% 0.2 %; LYMPH % 20.4 %; LYMPH ABS # 2.67 K/uL (1.2-3.4); MEAN CELL VOLUME 87.5 fL (80-100); MEAN CORPUSCULAR HEMOGLOBIN 29.2 pg (25-34); MEAN CORPUSCULAR HGB CONC 33.3 g/dl (32-36); MEAN PLATELET VOLUME 8.4 fL (7.4-10.4); MONO % 10.8 %; NEUT % 64.5 %; PLATELET COUNT 303 K/uL (130-400); RED BLOOD COUNT 3.77 M/uL (4.7-6.1); WHITE BLOOD COUNT 13.11 K/uL (4.8-10.8)
[2016-07-13 17:56] LABS: BUN/CREATININE RATIO 3.7 (10-20); CREATININE 9.4 mg/dl (0.60-1.40); POTASSIUM 3.9 mmol/L (3.5-5.1)
[2016-07-13] MEDS ORDERED: ALLO100T PO ×2 (17:57)
[2016-07-13] MEDS ORDERED: METO25TA3 PO ×2 (17:57)
[2016-07-13] MEDS ORDERED: FRS/40 PO ×2 (17:57)
[2016-07-13] MEDS ORDERED: LIDO4CRE10 TOP ×2 (17:57)
--- NOTE | 2016-07-13 17:59 | EMERGENCY ROOM VISIT NOTE ---
History Report prepared by [facility]: Eugenio Jean Under the Supervision of: Dr. Eleuterio Benoit D.O. First contact with patient: 16:29 Chief Complaint: FALL Stated Complaint: FALL, LEG WEAKNESS History of Present Illness The patient is a 75 year old male who presents to the Emergency Room via EMS with complaints of a mechanical fall that occurred prior to arrival today. He says that he was urinating in his house, and when he pulled his pants back up after urinating, he fell. The patient states that he has upper back pain, but it has been ongoing for a while. He says he has also been very weak all over for the past day or so. He notes that he did not fall on or hit anything with his upper back. The patient denies any dizziness. Per EMS, the patient just got out of [facility] 2 days ago for rehab of strength and control of his lower legs. The patient's pulse ox has ranged between 89 and 99 in the ambulance, and his blood pressure has ranged from 140 to 150 systolic. Source of History: patient, EMS Onset: Prior to arrival today Position: other (global - fall) Quality: other (mechanical) Associated Symptoms: + back pain (upper - but says not new), + weakness ( all over) Note: Associated symptoms: Denies dizziness. Pulse ox ranging from 89 to 99 in ambulance. Review of Systems See HPI for pertinent positives & negatives. A total of 10 systems reviewed and were otherwise negative. Past Medical & Surgical Medical Problems: (1) Anemia (2) CKD (chronic kidney disease) stage 3, GFR 30-59 ml/min (3) Diabetes mellitus, type II (4) Diabetic ulcer of right foot (5) End-stage renal disease on hemodialysis (6) Frequent falls (7) Generalized weakness (8) Gout (9) History of adenomatous polyp of colon (10) History of Clostridium difficile infection (11) Hypertension (12) Monoclonal gammopathy (13) Osteomyelitis (14) Secondary hyperparathyroidism of renal origin (15) Unspecified open wound, right foot, sequela Surgical Problems: (1) Status post arthroscopic knee surgery Family History FH: diabetes mellitus AUNT FH: stroke GRANDMOTHER Heart disease Hypertension Kidney disease Social History Smoking Status: Former Smoker Alcohol Use: none Drug Use: none Marital Status: Housing Status: lives with family Occupation Status: retired Current/Historical Medications Scheduled Allopurinol (Zyloprim), 100 MG PO DAILY Amlodipine (Norvasc), 10 MG PO QAM Atorvastatin (Atorvastatin Calcium), 20 MG PO HS Calcium Acetate (Phosphate Bin (Phoslo 667 Mg), 667 MG PO TID Cefadroxil (Cefadroxil), 1 TAB PO BID Chlordiazepoxide (Librium), 10 MG PO BID Furosemide (Lasix), 80 MG PO BID Insulin Aspart (Novolog Penfill), 45 UNITS SQ UD Insulin Detemir (Levemir Flextouch), 20 UNITS SQ HS Lidocaine (Anorectal) (Lidocaine), 1 APPLN TOP UD Lisinopril (Zestril), 40 MG PO QAM Metoprolol Succinate (Metoprolol Succinate ER), 50 MG PO QPM Metoprolol Succinate (Toprol Xl), 75 MG PO QAM Ranitidine Hcl (Zantac), 300 MG PO DAILY Sodium Bicarbonate (Sodium Bicarbonate), 650 MG PO BID Tamsulosin HCl (Tamsulosin HCl), 0.4 MG PO HS Warfarin Sod (Coumadin), 5 MG PO DAILY Scheduled PRN Hydrocodone/Acetaminophen 5MG/325MG ([place] 5MG/325MG), 1 TAB PO Q6H PRN for Pain Meclizine HCl (Meclizine HCl), 25 MG PO Q4H PRN for Dizziness or Vertigo Trazodone HCl (Trazodone HCl), 150 MG PO HS PRN for Sleep Allergies Coded Allergies: No Known Allergies (Verified , 06/02/16) Physical Exam Vital Signs Date Time Temp Pulse Resp B/P Pulse Ox O2 Delivery O2 Flow Rate FiO2 07/13/16 17:09 52 07/13/16 16:47 93 Room Air 07/13/16 16:32 36.8 60 19 124/60 94 Physical Exam CONSTITUTIONAL/VITAL SIGNS: Reviewed / noted above. GENERAL: Non-toxic in appearance. INTEGUMENTARY: Warm, dry, and [place]. HEAD: Normocephalic. EYES: without scleral icterus or trauma. ENT/OROPHARYNX: clear and moist. LYMPHADENOPATHY/NECK: Is supple without lymphadenopathy or meningismus. RESPIRATORY: Lungs clear and equal. CARDIOVASCULAR: Regular rate and rhythm. GI/ABDOMEN: Soft and nontender. No organomegaly or pulsatile mass. No rebound or guarding. Normal bowel sounds. EXTREMITIES: Warm and well perfused. BACK: No CVA tenderness. NEUROLOGICAL: Intact without focal deficits. GCS of 15. PSYCHIATRIC: normal affect. MUSCULOSKELETAL: Normally developed with good muscle tone. Medical Decision & Procedures ER Provider Diagnostic Interpretation: X ray results and stated below per my interpretation and radiology interpretation. SINGLE VIEW CHEST CLINICAL HISTORY: Fever. Sepsis. FINDINGS: An AP, portable, upright chest radiograph is compared to study dated 06/30/2016. The examination is degraded by portable technique and patient rotation. The heart is enlarged and there is atherosclerotic calcification of the thoracic aorta. Pulmonary vascular congestion persists. More focal airspace consolidation is suggested at the left lung base. Trace pleural effusions are noted. No pneumothorax is seen. The skeletal structures are osteopenic. Degenerative change is noted throughout the thoracic spine. IMPRESSION: 1. Cardiomegaly and pulmonary vascular congestion. 2. There are developing airspace opacities at the left lung base. Correlate clinically for evidence of superimposed pneumonia. 3. Trace pleural effusions. Electronically signed by: Allan Guerrero M.D. 07/13/2016 4:59 PM Dictated Date/Time: 07/13/2016 4:57 PM Laboratory Results 07/13/16 17:02 Red Blood Count 3.77, Mean Corpuscular Volume 87.5, Mean Corpuscular Hemoglobin 29.2, Mean Corpuscular Hemoglobin Concent 33.3, Mean Platelet Volume 8.4, Neutrophils (%) (Auto) 64.5, Lymphocytes (%) (Auto) 20.4, Monocytes (%) (Auto) 10.8, Eosinophils (%) (Auto) 3.4, Basophils (%) (Auto) 0.7, Neutrophils # (Auto ) 8.45, Lymphocytes # (Auto) 2.67, Monocytes # (Auto) 1.42, Eosinophils # (Auto ) 0.45, Basophils # (Auto) 0.09 07/13/16 17:02 Test 07/13/16 17:02 White Blood Count 13.11 K/uL (4.8-10.8) Red Blood Count 3.77 M/uL (4.7-6.1) Hemoglobin 11.0 g/dL (14.0-18.0) Hematocrit 33.0 % (42-52) Mean Corpuscular Volume 87.5 fL (80-100) Mean Corpuscular Hemoglobin 29.2 pg (25-34) Mean Corpuscular Hemoglobin Concent 33.3 g/dl (32-36) Platelet Count 303 K/uL (130-400) Mean Platelet Volume 8.4 fL (7.4-10.4) Neutrophils (%) (Auto) 64.5 % Lymphocytes (%) (Auto) 20.4 % Monocytes (%) (Auto) 10.8 % Eosinophils (%) (Auto) 3.4 % Basophils (%) (Auto) 0.7 % Neutrophils # (Auto) 8.45 K/uL (1.4-6.5) Lymphocytes # (Auto) 2.67 K/uL (1.2-3.4) Monocytes # (Auto) 1.42 K/uL (0.11-0.59) Eosinophils # (Auto) 0.45 K/uL (0-0.5) Basophils # (Auto) 0.09 K/uL (0-0.2) RDW Standard Deviation 50.7 fL (36.4-46.3) RDW Coefficient of Variation 15.6 % (11.5-14.5) Immature Granulocyte % (Auto) 0.2 % Immature Granulocyte # (Auto) 0.03 K/uL (0.00-0.02) Anion Gap 9.0 mmol/L (3-11) Est Creatinine Clear Calc Drug Dose 8.6 ml/min Estimated GFR () 5.7 Estimated GFR (Non- 4.9 BUN/Creatinine Ratio 3.7 (10-20) Calcium Level 9.0 mg/dl (8.5-10.1) Laboratory results as stated above per my review. ED Course 1629: Previous medical records were reviewed. The patient was evaluated in room B5. A complete history and physical examination was performed. 1751: I discussed the patient with Dr. Amaury Parker outpatient dietitian - she will evaluate the patient for further treatment. 1755: I reevaluated the patient and he is resting comfortably. The patient verbally expressed understanding and agreement of the treatment plan. The patient will be evaluated for further treatment. Medical Decision Differential includes close head injury, intracranial bleed, facial trauma, cervical spine trauma, chest and thoracic trauma, abdominal and intra-abdominal trauma, spine neurologic trauma, extremity trauma, acute coronary syndrome, myocardial infarction, CVA, TIA, anemia, infection, pneumonia, UTI, pyelonephritis, poor nutrition, dehydration, electrolyte disturbance, hypoglycemia. Medication Reconciliation: I attest that I have personally reviewed the patient' s current medication list. This is a 71-year-old male who presents to the ED with a chief complaint of fall and generalized weakness. The patient was admitted to the hospital and subsequently sent to rehabilitation at the [facility]. He was released 2 days ago. He states that he was discharged but has become weak since that time. Today he was going to the bathroom and subsequently fell. He states that he was unable to get up. The patient complains of some upper back pain. Denies this being related to this fall today. He does not feel safe at home. He feels he might need senior living care or additional rehabilitation. His chest x -ray did not show any acute disease. There was a questionable left lung developing infiltrate but clinically this is not present on exam and the patient has no pulmonary complaints. For potential count was 13. Hemoglobin is 11. Chemistry panel is unremarkable. Patient is dialysis patient, due for dialysis tomorrow. Consults Time Called: 174 Consulting Physician: Dr. Amaury Parker outpatient dietitian Returned Call: [phone] I discussed the patient with Dr. Amaury Parker outpatient dietitian - she will evaluate the patient for further treatment. Impression Primary Impression: Fall Additional Impression: Generalized weakness Scribe Attestation The scribe's documentation has been prepared under my direction and personally reviewed by me in its entirety. I confirm that the note above accurately reflects all work, treatment, procedures, and medical decision making performed by me. Departure Information Dispostion Being Evaluated By Hospitalist Referrals Obi Mendez M.D. (PCP) Patient Instructions My [facility] Problem Qualifiers
[2016-07-13] MEDS ORDERED: GLUCOSE 10 TABS/TUBE PO PRN (20:00)
[2016-07-13] MEDS ORDERED: GLUCOSE 40% GEL 15 GM TUBE PO PRN (20:00)
[2016-07-13] MEDS ORDERED: MAGNESIUM HYDROXIDE SUSP 30 ML UDC PO PRN (20:00)
[2016-07-13] MEDS ORDERED: ONDANSETRON INJ 2 MG/ML 2 ML VIAL IV PRN (20:00)
[2016-07-13] MEDS ORDERED: MECLIZINE HCL 25 MG TAB PO PRN (20:00)
[2016-07-13] MEDS ORDERED: ACETAMINOPHEN 325 MG TAB PO PRN (20:00)
[2016-07-13] MEDS ORDERED: GLUCAGON FOR INJ 1 MG VIAL SQ PRN (20:00)
[2016-07-13] MEDS ORDERED: DEXTROSE 50% 50 ML SYR IV PRN (20:00)
--- NOTE | 2016-07-13 20:03 | History and Physical ---
History & Physical Date & Time of Service: July 13, 2016 at 19:54 Chief Complaint: Fall, Leg Weakness Primary Care Physician: Obi Mendez M.D. History of Present Illness Source: patient 75 y/o M c/o falls. Pt was recent d/c from [facility] on 07/01 for osteomyelitis. He was sent to [facility] for rehab and to complete a course of IV abx. Pt was d/c' d from [facility] 2 days ago. He was fine at that time, but has since fallen daily. He feels like "my bones are rubber". No new pain related to R foot ulceration. He has a decreased appetite. No n/v. He states he is unsure if he is still on abx. He does not know his coumadin or levemir dosing. He states that his daughter Zita does all of his meds for him. She is not present. He has not had any medication changes recently though per him. Pt denies fever, SOB, chest pain, c/d, LE pain or swelling. ROS as noted above, otherwise neg. 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 Status: Chronic Surgical Problems: (1) Status post arthroscopic knee surgery Status: Chronic ESRD, baseline cr around 8.0 Recent R foot osteo, follows with [facility] Gout HTN 2ndary hyperparathyroidism BPH afib Monoclonal gammopathy Family History Family history was reviewed; no changes noted. Social History Smoking Status: Former Smoker (quit 20 yrs ago) Alcohol Use: none (quit 20 yrs ago) Drug Use: other (none currently, but hx of frequent marijuana and cocaine use 20 yrs ago. Tried heroin x1, "but I didn't like it") Marital Status: Housing status: lives with family Occupational Status: retired Immunizations History of Influenza Vaccine: Yes History of Tetanus Vaccine?: Unknown History of Pneumococcal: Yes Pneumococcal Date: Dec 22, 2007 History of Hepatitis B Vaccine: Unknown Multi-Drug Resistant Organisms History of MDRO: No Allergies Coded Allergies: No Known Allergies (Verified , 06/02/16) Home Medications Scheduled Allopurinol (Zyloprim), 100 MG PO DAILY Amlodipine (Norvasc), 10 MG PO QAM Atorvastatin (Atorvastatin Calcium), 20 MG PO HS Calcium Acetate (Phosphate Bin (Phoslo 667 Mg), 667 MG PO TID Cefadroxil (Cefadroxil), 1 TAB PO BID Chlordiazepoxide (Librium), 10 MG PO BID Furosemide (Lasix), 80 MG PO BID Insulin Aspart (Novolog Penfill), 45 UNITS SQ UD Insulin Detemir (Levemir Flextouch), 20 UNITS SQ HS Lidocaine (Anorectal) (Lidocaine), 1 APPLN TOP UD Lisinopril (Zestril), 40 MG PO QAM Metoprolol Succinate (Metoprolol Succinate ER), 50 MG PO QPM Metoprolol Succinate (Toprol Xl), 75 MG PO QAM Ranitidine Hcl (Zantac), 300 MG PO DAILY Sodium Bicarbonate (Sodium Bicarbonate), 650 MG PO BID Tamsulosin HCl (Tamsulosin HCl), 0.4 MG PO HS Warfarin Sod (Coumadin), 5 MG PO DAILY Scheduled PRN Hydrocodone/Acetaminophen 5MG/325MG ([place] 5MG/325MG), 1 TAB PO Q6H PRN for Pain Meclizine HCl (Meclizine HCl), 25 MG PO Q4H PRN for Dizziness or Vertigo Trazodone HCl (Trazodone HCl), 150 MG PO HS PRN for Sleep Physical Exam Vital Signs Date Time Temp Pulse Resp B/P Pulse Ox O2 Delivery O2 Flow Rate FiO2 07/13/16 18:31 69 20 108/49 94 07/13/16 17:09 52 07/13/16 16:47 93 Room Air 07/13/16 16:32 36.8 60 19 124/60 94 General Appearance: WD/WN, no apparent distress Head: normocephalic, atraumatic Respiratory/Chest: normal breath sounds, no respiratory distress Cardiovascular: regular rate, rhythm, no edema Abdomen/GI: non tender, soft Extremities/Musculoskelatal: no calf tenderness, no pedal edema Neurologic/Psych: alert, oriented x 3 Skin: normal color, warm/dry Diagnostics Laboratory Results Results Past 24 Hours Test 07/13/16 17:02 07/13/16 19:46 Range/Units White Blood Count 13.11 4.8-10.8 K/uL Red Blood Count 3.77 4.7-6.1 M/uL Hemoglobin 11.0 14.0-18.0 g/dL Hematocrit 33.0 42-52 % Mean Corpuscular Volume 87.5 80-100 fL Mean Corpuscular Hemoglobin 29.2 25-34 pg Mean Corpuscular Hemoglobin Concent 33.3 32-36 g/dl Platelet Count 303 130-400 K/uL Mean Platelet Volume 8.4 7.4-10.4 fL Neutrophils (%) (Auto) 64.5 % Lymphocytes (%) (Auto) 20.4 % Monocytes (%) (Auto) 10.8 % Eosinophils (%) (Auto) 3.4 % Basophils (%) (Auto) 0.7 % Neutrophils # (Auto) 8.45 1.4-6.5 K/uL Lymphocytes # (Auto) 2.67 1.2-3.4 K/uL Monocytes # (Auto) 1.42 0.11-0.59 K/uL Eosinophils # (Auto) 0.45 0-0.5 K/uL Basophils # (Auto) 0.09 0-0.2 K/uL RDW Standard Deviation 50.7 36.4-46.3 fL RDW Coefficient of Variation 15.6 11.5-14.5 % Immature Granulocyte % (Auto) 0.2 % Immature Granulocyte # (Auto) 0.03 0.00-0.02 K/uL Sodium Level 136 136-145 mmol/L Potassium Level 3.9 3.5-5.1 mmol/L Chloride Level 96 98-107 mmol/L Carbon Dioxide Level 31 21-32 mmol/L Anion Gap 9.0 3-11 mmol/L Blood Urea Nitrogen 35 7-18 mg/dl Creatinine 9.40 0.60-1.40 mg/dl Est Creatinine Clear Calc Drug Dose 8.6 ml/min Estimated GFR () 5.7 Estimated GFR (Non- 4.9 BUN/Creatinine Ratio 3.7 10-20 Random Glucose 171 70-99 mg/dl Calcium Level 9.0 8.5-10.1 mg/dl Diagnostic Radiology CXR: ? LLB PNA Impression Assessment and Plan 75 y/o M who was admitted on 07/13 for falls. Falls: in the setting of recent osteo, ESRD PT/OT pending May need further rehab vs placement Recent osteo: no new issues per pt WCC pending, he follows with him Completed IV vano at HS CXR: ? L base PNA, neg of exam Afebrile with mild elevation of WBC in the setting of recent osteo Monitor for now Was on vanco recently, PNA seems less likely ESRD: HD due tomorrow Renal c/s DM: SSI + levemir A1c 06/2016 7.1 Afib: INR pending Continue meds Continue coumadin 5mg QD as on d/c from [facility] if INR WNL HTN: continue home meds Other: Full code Coumadin for DVT proph DM, renal diet Level of Care Med/Surg Resuscitation Status FULL RESUSCITATION VTE Prophylaxis VTE Risk Assessment Done? Y/N: Yes Risk Level: Low
[2016-07-13] MEDS ORDERED: IV FLUIDS COMPLETED PRN (20:15)
[2016-07-13 20:24] VITALS: Ht 185.4 cm; Wt 98.4 kg
[2016-07-13] MEDS ORDERED: SODIUM BICARBONATE 650 MG TAB PO SCH (21:00)
[2016-07-13] MEDS: HYDROCODONE/ACETAMOPHEN 5/325MG TAB PO PRN (21:23)
[2016-07-13 22:12] VITALS: BP 128/57; PULSE 64; TEMP 36.4; O2SAT 98
[2016-07-13 23:10] LABS: PROTHROMBIN TIME (PATIENT) > 100.0 SECONDS (9.0-12.0)
[2016-07-13 23:33] LABS: INR > 8.0 (0.9-1.1)
[2016-07-14] VITALS (25 sets, daily range): BP systolic 108–151; BP diastolic 42–66; PULSE 59–78; TEMP 36.5–36.7; O2SAT 93–98
[2016-07-14] MEDS: TAMSULOSIN HCL 0.4 MG CAP PO SCH ×2 (00:01→20:49)
[2016-07-14] MEDS: ATORVASTATIN 20 MG TAB PO SCH ×2 (00:02→20:45)
[2016-07-14] MEDS: METOPROLOL SUCC 50MG EXT REL TAB PO SCH ×2 (00:02→20:46)
[2016-07-14] MEDS: TRAZODONE HCL 50 MG TAB PO PRN ×2 (00:03→20:48)
[2016-07-14] MEDS: INSULIN ASPART 100 UNITS/ML 3 ML PEN SC SCH ×5 (00:05→20:47)
[2016-07-14] MEDS: INSULIN DETEMIR FLEXPEN/FLEX TOUCH 100 UNITS/ML 3ML SQ SCH ×2 (00:06→20:47)
[2016-07-14] MEDS ORDERED: PHYTONADIONE INJ 10 MG in SODIUM CHLORIDE 0.9% 50ML 50 ML IV STA (00:18)
--- NOTE | 2016-07-14 00:20 | Progress Note ---
Progress Note Date of Service July 14, 2016. Progress Note informed about INR, Coumadin held and vit K 10 mg IV ordered
--- NOTE | 2016-07-14 06:42 | DIAGNOSTIC IMAGING REPORT ---
CT OF THE HEAD WITHOUT CONTRAST CLINICAL HISTORY: Elevated INR. Altered mental status. Falls. COMPARISON STUDY: Head CT June 07, 2016. CT DOSE: 614.27 mGy.cm TECHNIQUE: Helical axial images of the head were obtained without IV contrast. Automated exposure control was utilized for the study. FINDINGS: No acute intracranial hemorrhage, midline shift or mass effect is present. White matter hypodensity suggests small vessel disease. Mild dilatation of the lateral ventricles is unchanged. There are no findings to suggest acute dural sinus thrombosis or acute territorial infarct. There is no calvarial fracture. IMPRESSION: 1. No acute intracranial findings. 2. No calvarial fracture. Electronically signed by: Adrian Fox M.D. 07/14/2016 6:40 AM Dictated Date/Time: 07/14/2016 6:38 AM
[2016-07-14] MEDS ORDERED: AMLODIPINE BESYLATE 5 MG TAB PO SCH (08:00)
[2016-07-14] MEDS ORDERED: WARFARIN SOD 5 MG TAB PO SCH (08:00)
[2016-07-14] MEDS: CALCIUM ACETATE 667MG GELCAP PO SCH ×3 (08:48→16:51)
[2016-07-14] MEDS ORDERED: PARICALCITOL 5 MCG/ML VIAL (ZEMPLAR) IV. SCH (09:00)
[2016-07-14] MEDS ORDERED: HEPARIN SOD (PORCINE) 1000 UNIT/ML 10 ML VIAL IV SCH (09:00)
--- NOTE | 2016-07-14 09:29 | Nephrology Consultation ---
Nephrology Consultation Date & Providers Date of Consultation: July 14, 2016. Primary Care Provider: Obi Mendez M.D. Referring Provider: Reason for Consultation Provide HD for this patient w/ ESRD admitted following a syncopal event History of Present Illness Mr. Carmichael is a 75 year old white male who is seen at the request of Dr. Rebolledo to provide inpatient HD and assist w/ his medical management. 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 He has been on HD since 08/29 and dialyzes MWF at the [facility] dialysis unit (HD Rx: 4 hr F-180 2K 2.5Ca EDW 112 15g needles Epogen 2000 units Hectrol 1 mcg). 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 Following hospitalization earlier this month Mr. Carmichael was discharged to [facility] for physical therapy. He returned home three days ago. Yesterday after voiding he became lightheaded and slid down the wall to the floor. He did not hit his head. He denies loss of consciousness or seizure activity. He did not injure himself. Mr. Carmichael was unable to get up on his own. A family member called EMS and he has been admitted for evaluation of syncope and weakness. 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 # Gout # Atrial fibrillation on anticoagulation therapy # AODM Surgical: # Osteomyelitis of R foot 5th metatarsal s/p partial amputation 06/30 # Angioplasty venous limb AVF 06/30 Allergies Coded Allergies: No Known Allergies (Verified , 06/02/16) Inpatient Medications Current Inpatient Medications Medications (Trade) Dose Ordered Sig/Eliseo Route Start Time Stop Time Status Last Admin Dose Admin Acetaminophen (Tylenol Tab) 650 mg Q4H PRN PO 07/13/16 20:00 08/12/16 19:59 Magnesium Hydroxide (Milk Of Magnesia Susp) 30 ml Q6H PRN PO 07/13/16 20:00 08/12/16 19:59 Ondansetron HCl (Zofran Inj) 4 mg Q6H PRN IV 07/13/16 20:00 08/12/16 19:59 Insulin Aspart (novoLOG ASPART) SLIDING SCALE If C... ACHS SC 07/13/16 21:00 08/12/16 20:59 07/14/16 08:53 4 UNITS Glucose (Glucose 40% Gel) 15-30 GRAMS 15 GRAMS... UD PRN PO 07/13/16 20:00 08/12/16 19:59 Glucose (Glucose Chew Tab) 4-8 Tablets 4 Tabl... UD PRN PO 07/13/16 20:00 08/12/16 19:59 Dextrose (Dextrose 50% 50ML Syringe) 25-50ML OF 50% DW IV FOR... UD PRN IV 07/13/16 20:00 08/12/16 19:59 Glucagon (Glucagon Inj) 1 mg UD PRN SQ 07/13/16 20:00 08/12/16 19:59 Allopurinol (Zyloprim Tab) 100 mg DAILY PO 07/14/16 08:00 08/13/16 08:59 Amlodipine Besylate (Norvasc Tab) 10 mg QAM PO 07/14/16 08:00 08/13/16 08:59 Atorvastatin Calcium (Lipitor Tab) 20 mg HS PO 07/13/16 21:00 08/12/16 20:59 07/14/16 00:02 20 MG Calcium Acetate (Phoslo Cap) 667 mg TIDM PO 07/14/16 08:00 08/13/16 07:59 07/14/16 08:48 667 MG Chlordiazepoxide (Librium Cap) 10 mg BID PO 07/13/16 21:00 08/12/16 20:59 Furosemide (Lasix Tab) 80 mg BID17 PO 07/13/16 21:00 08/12/16 20:59 07/14/16 00:00 80 MG Acetaminophen/ Hydrocodone Bitart ([place] 5/325 Tab) 1 tab Q6H PRN PO 07/13/16 20:00 07/27/16 19:59 07/13/16 21:23 1 TAB Insulin Detemir (Levemir Flexpen/ FlexTouch) 20 unit HS SQ 07/13/16 21:00 08/12/16 20:59 07/14/16 00:06 20 UNIT Lisinopril (Zestril Tab) 40 mg QAM PO 07/14/16 08:00 08/13/16 08:59 Meclizine HCl (Antivert Tab) 25 mg Q4H PRN PO 07/13/16 20:00 08/12/16 19:59 Metoprolol Succinate (Toprol Xl Tab) 50 mg QPM PO 07/13/16 21:00 08/12/16 20:59 07/14/16 00:02 50 MG Metoprolol Succinate (Toprol Xl Tab) 75 mg QAM PO 07/14/16 08:00 08/13/16 08:59 Sodium Bicarbonate (Sodium Bicarbonate Tab) 650 mg BID PO 07/13/16 21:00 08/12/16 20:59 Tamsulosin HCl (Flomax Cap) 0.4 mg HS PO 07/13/16 21:00 08/12/16 20:59 07/14/16 00:01 0.4 MG Miscellaneous Information (Order Awaiting Action) 1 ea QS N/A 07/14/16 00:00 08/13/16 00:00 Miscellaneous Information (Order Awaiting Action) 1 ea QS N/A 07/14/16 00:00 08/13/16 00:00 Ranitidine HCl (zANTac TAB) 300 mg DAILY PO 07/14/16 08:00 08/13/16 08:59 Trazodone HCl (Desyrel Tab) 150 mg HS PRN PO 07/13/16 20:00 08/12/16 19:59 07/14/16 00:03 150 MG Miscellaneous (Iv Fluids Completed) 1 ea PRN PRN N/A 07/13/16 20:15 07/13/17 20:14 Family History FH: diabetes mellitus AUNT FH: stroke GRANDMOTHER Heart disease Hypertension Kidney disease Negative for CKD / ESRD Social History Smoking Status: Former Smoker Alcohol Use: none (quit 20 yrs ago) Drug Use: other (none currently, but hx of frequent marijuana and cocaine use 20 yrs ago. Tried heroin x1, "but I didn't like it") Marital Status: Housing Status: lives with family Occupation: retired . Retired. Former smoker Review of Systems Constitutional: No fever Respiratory: No cough, No sputum Cardiovascular: No chest pain, No palpitations Abdomen: No nausea, No pain, No vomiting Musculoskeletal: No joint pain Endocrine: No fatigue A complete review of systems was performed. Pertinent positives are noted above. All other systems are negative. Physical Exam Date Time Temp Pulse Resp B/P Pulse Ox O2 Delivery O2 Flow Rate FiO2 07/14/16 07:36 36.5 61 20 136/66 98 Room Air 07/14/16 00:00 95 Room Air 07/13/16 22:12 36.4 64 16 128/57 98 Room Air 07/13/16 21:25 65 19 122/65 95 Room Air 07/13/16 20:24 Room Air 07/13/16 18:31 69 20 108/49 94 07/13/16 17:09 52 07/13/16 16:47 93 Room Air 07/13/16 16:32 36.8 60 19 124/60 94 General Appearance: no apparent distress Head: normocephalic, atraumatic Eyes: PERRL, EOMI ENT: pharynx normal Neck: supple, no adenopathy, no JVD, + pertinent finding (no carotid bruit) Respiratory/Chest: lungs clear, normal breath sounds, no respiratory distress Cardiovascular: regular rate, rhythm, no murmur Abdomen/GI: normal bowel sounds, non tender, soft, no organomegaly Back: no CVA tenderness, + pertinent finding (no bruising) Extremities/Musculoskelatal: no calf tenderness, no pedal edema, + pertinent finding (L arm AVF + bruit) Neurologic/Psych: alert, oriented x 3 Skin: warm/dry Laboratory Results CXR films from 07/13 viewed today: Possible LLL infiltrate. No consolidation. No CHF. Head CT report from 07/14 reviewed this am: No intracranial bleed. No calvarial fracture. Last 24 Hours Test 07/13/16 17:02 07/13/16 22:16 07/14/16 04:44 07/14/16 07:45 White Blood Count 13.11 K/uL Red Blood Count 3.77 M/uL Hemoglobin 11.0 g/dL Hematocrit 33.0 % Mean Corpuscular Volume 87.5 fL Mean Corpuscular Hemoglobin 29.2 pg Mean Corpuscular Hemoglobin Concent 33.3 g/dl Platelet Count 303 K/uL Mean Platelet Volume 8.4 fL Neutrophils (%) (Auto) 64.5 % Lymphocytes (%) (Auto) 20.4 % Monocytes (%) (Auto) 10.8 % Eosinophils (%) (Auto) 3.4 % Basophils (%) (Auto) 0.7 % Neutrophils # (Auto) 8.45 K/uL Lymphocytes # (Auto) 2.67 K/uL Monocytes # (Auto) 1.42 K/uL Eosinophils # (Auto) 0.45 K/uL Basophils # (Auto) 0.09 K/uL RDW Standard Deviation 50.7 fL RDW Coefficient of Variation 15.6 % Immature Granulocyte % (Auto) 0.2 % Immature Granulocyte # (Auto) 0.03 K/uL Prothrombin Time > 100.0 SECONDS Prothromb Time International Ratio > 8.0 Sodium Level 136 mmol/L Potassium Level 3.9 mmol/L Chloride Level 96 mmol/L Carbon Dioxide Level 31 mmol/L Anion Gap 9.0 mmol/L Blood Urea Nitrogen 35 mg/dl Creatinine 9.40 mg/dl Est Creatinine Clear Calc Drug Dose 8.6 ml/min Estimated GFR () 5.7 Estimated GFR (Non- 4.9 BUN/Creatinine Ratio 3.7 Random Glucose 171 mg/dl Calcium Level 9.0 mg/dl Bedside Glucose 151 mg/dl 118 mg/dl Impression (1) Syncope and collapse (2) End-stage renal disease on hemodialysis (3) Monoclonal gammopathy (4) Hypertension (5) Anemia (6) Atrial fibrillation (7) Supratherapeutic INR (8) Peripheral vascular disease Mr. Carmichael was admitted for evaluation of syncope and weakness. He has ESRD and requires MWF HD. Currently no evidence of infection, arrhythmia or seizure. He did not lose consciousness. He is below his EDW and may have suffered syncope related to orthostasis. 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 Recommendations END STAGE RENAL DISEASE: -- HD today according to outpatient orders. Will limit IV heparin. Will limit UF to 1 L as patient is below his EDW. -- Orders entered into EMR and HD RN notified -- HD diet -- Will order daily renal vitamin -- Protect left arm AVF -- Patient has metabolic alkalosis. Will stop NaHCO3 supplement HYPERTENSION: -- Blood pressure is relatively low -- Will limit UF on HD to 1 L today -- staffing director to check orthostatic BP and pulse x 3 days -- Stop Amlodipine ANEMIA: -- Hgb is > 11.0. Will hold FLOWER today -- Monitor H&H ID: -- CXR film reviewed today. Possible LLL infiltrate. Patient remains afebrile. Will monitor for clinical signs / symptoms of active infection SYNCOPE: -- Will order carotid doppler studies (last study 2014 w/ diffuse plaque disease of ICA bilaterally ~ 60 %) -- Head CT report reviewed this am. No hemorrhage or calvarial fracture -- Will order 12 lead ECG
[2016-07-14] MEDS: HYDROCODONE/ACETAMOPHEN 5/325MG TAB PO PRN (10:02)
[2016-07-14 11:03] LABS: HEMATOCRIT 29.9 % (42-52); MEAN CELL VOLUME 87.2 fL (80-100); MEAN CORPUSCULAR HEMOGLOBIN 28.6 pg (25-34); MEAN CORPUSCULAR HGB CONC 32.8 g/dl (32-36); MEAN PLATELET VOLUME 8.5 fL (7.4-10.4); PLATELET COUNT 276 K/uL (130-400); RED BLOOD COUNT 3.43 M/uL (4.7-6.1)
[2016-07-14 11:12] LABS: INR 1.7 (0.9-1.1); PARTIAL THROMBOPLASTIN RATIO 1.5; PROTHROMBIN TIME (PATIENT) 18.5 SECONDS (9.0-12.0)
[2016-07-14 11:37] LABS: CALCIUM 8.7 mg/dl (8.5-10.1)
[2016-07-14 12:10] LABS: CREATININE 9.8 mg/dl (0.60-1.40); POTASSIUM 3.9 mmol/L (3.5-5.1)
[2016-07-14] MEDS: FUROSEMIDE 40 MG TAB PO SCH ×3 (14:42→16:49)
[2016-07-14] MEDS: LISINOPRIL 40 MG TAB PO SCH (16:50)
[2016-07-14] MEDS: WARFARIN SOD 3 MG TAB PO SCH (16:50)
[2016-07-14] MEDS: ALLOPURINOL 100 MG TAB PO SCH (16:51)
[2016-07-14] MEDS: RANITIDINE HCL 150 MG TAB PO SCH (16:52)
[2016-07-14] MEDS: HEPARIN SOD (PORCINE) 1000 UNIT/ML 10 ML VIAL IV SCH ×2 (16:52→17:05)
[2016-07-14] MEDS: METOPROLOL SUCC 25MG EXT REL TAB PO SCH (16:52)
[2016-07-14] MEDS: CHLORDIAZEPOXIDE 10 MG CAP PO SCH ×2 (16:57→19:57)
[2016-07-14] MEDS ORDERED: ALUMINUM/MAGNESIUM SUSP 30 ML UDC PO ONE (17:00)
[2016-07-14] MEDS ORDERED: LIDOCAINE HCL 2% VISC SOLN 20 ML UDC PO ONE (17:00)
--- NOTE | 2016-07-14 17:50 | Progress Note ---
Subjective Date of Service: July 14, 2016. Subjective Pt evaluation today including: conversation w/ patient, physical exam, chart review, lab review, review of inpatient medication list no specific complaints besides feeling weak. no new issues, just legs are weak. nothing really seemed to trigger it. [facility], reportedly was doing well. on HD during interview and exam Problem List Medical Problems: (1) Atrial flutter with rapid ventricular response Status: Acute (2) Cellulitis of right foot Status: Acute (3) Elevated troponin Status: Acute (4) Fall Status: Acute (5) Falls Status: Acute (6) Pulmonary edema Status: Acute (7) Renal failure Status: Acute (8) Sepsis Status: Acute Review of Systems ros otherwise negative except for as above Objective Vital Signs Date Time Temp Pulse Resp B/P Pulse Ox O2 Delivery O2 Flow Rate FiO2 07/14/16 17:28 78 113/56 07/14/16 16:18 36.5 60 122/59 07/14/16 16:13 36.5 60 122/59 07/14/16 16:11 36.6 69 143/58 07/14/16 16:00 Room Air 07/14/16 15:50 36.6 69 20 143/58 97 Room Air 07/14/16 15:15 68 151/62 07/14/16 15:01 68 125/57 07/14/16 14:30 66 148/60 07/14/16 14:15 68 131/54 07/14/16 14:04 66 119/50 07/14/16 13:45 68 127/48 07/14/16 13:30 64 137/63 07/14/16 12:30 65 122/65 07/14/16 12:15 65 124/62 07/14/16 12:00 63 131/61 07/14/16 11:45 61 127/59 07/14/16 11:30 59 126/63 07/14/16 11:15 62 126/61 07/14/16 11:00 60 128/51 07/14/16 10:51 60 108/42 07/14/16 09:49 63 20 127/60 95 Room Air 61 120/61 64 07/14/16 08:30 Room Air 07/14/16 07:36 36.5 61 20 136/66 98 Room Air 07/14/16 00:00 95 Room Air 07/13/16 22:12 36.4 64 16 128/57 98 Room Air 07/13/16 21:25 65 19 122/65 95 Room Air 07/13/16 20:24 Room Air 07/13/16 18:31 69 20 108/49 94 Physical Exam General Appearance: no apparent distress Eyes: EOMI ENT: hearing grossly normal Neck: trachea midline Respiratory/Chest: no respiratory distress, no accessory muscle use Extremities: normal range of motion Neurologic/Psychiatric: hull 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 II-XII nml as tested, alert, normal mood/affect Skin: normal color, warm/dry Laboratory Results Last 24 Hours Test 07/13/16 22:16 07/14/16 07:45 07/14/16 10:54 07/14/16 11:33 Bedside Glucose 151 mg/dl 118 mg/dl 107 mg/dl White Blood Count 11.50 K/uL Red Blood Count 3.43 M/uL Hemoglobin 9.8 g/dL Hematocrit 29.9 % Mean Corpuscular Volume 87.2 fL Mean Corpuscular Hemoglobin 28.6 pg Mean Corpuscular Hemoglobin Concent 32.8 g/dl RDW Standard Deviation 50.8 fL RDW Coefficient of Variation 15.7 % Platelet Count 276 K/uL Mean Platelet Volume 8.5 fL Prothrombin Time 18.5 SECONDS Prothromb Time International Ratio 1.7 Activated Partial Thromboplast Time 37.8 SECONDS Partial Thromboplastin Ratio 1.5 Sodium Level 136 mmol/L Potassium Level 3.9 mmol/L Chloride Level 96 mmol/L Carbon Dioxide Level 29 mmol/L Anion Gap 11.0 mmol/L Blood Urea Nitrogen 40 mg/dl Creatinine 9.80 mg/dl Est Creatinine Clear Calc Drug Dose 8.2 ml/min Estimated GFR () 5.4 Estimated GFR (Non- 4.7 BUN/Creatinine Ratio 4.0 Random Glucose 135 mg/dl Calcium Level 8.7 mg/dl Test 07/14/16 15:18 07/14/16 15:53 Vitamin B12 Level 1103 pg/mL 25-Hydroxy Vitamin D Total 46.5 ng/ml Bedside Glucose 108 mg/dl Assessment and Plan weakness - seems to be predominantly deconditioning - no acute issues identified. does note that he's not been eating as well; has had several hospitalizations recently - all of which could easily precipitate deconditioning. what's unclear is the reason as to why he decompensated now when it appears that he was doing better at dc from SNF. continue to follow, serial exams. check B12, and vitamin D. follow clinically poor PO intake, recently low albumin, moderate protein malnutrition - slash trimmer consult, encouraged PO intake Falls: in the setting of recent osteo, ESRD PT/OT eval and treat weakness as above likely to need rehab or repeat SNF stay Recent osteo: no new issues Wound consult, follow for any s/s active infection CXR: ? L base PNA no s/s active infection - continue to follow of abx ESRD: HD today, nephrology input appreciated DM: SSI + levemir A1c 06/2016 7.1 sugars acceptable Afib and coumadin coagulopathy - continue home meds, coumadin reversed - resume at lower dose, no bleeding HTN: continue home meds Other: Full code Coumadin for DVT proph DM, renal diet likely will need SNF or rehab
--- NOTE | 2016-07-14 18:52 | DIAGNOSTIC IMAGING REPORT ---
ULTRASOUND OF THE CAROTID ARTERIES CLINICAL HISTORY: syncope COMPARISON STUDY: None. TECHNIQUE: Real-time, grayscale, and color Doppler sonography of the carotid arteries was performed. Imaging reviewed in the transverse and longitudinal planes. NASCET criteria was utilized for stenosis calcification. FINDINGS: There is moderately extensive atherosclerotic plaque present bilaterally. The peak systolic velocity within the right internal carotid artery is 80 cm/sec. The systolic velocity ratio of right internal to common carotid artery is 1.1. The peak systolic velocity within the left internal carotid artery is 126 cm/sec. The systolic velocity ratio left internal to common carotid artery is 1.0. Antegrade flow is seen in the vertebral arteries. The external carotid arteries are patent. There are elevated velocities within both external carotid arteries. The systolic velocity within the right external carotid artery is 434 cm/s. Peak systolic velocity of the left external carotid artery is to 45 cm/s. IMPRESSION: 1. Moderate bilateral atheromatous changes 2. No evidence of hemodynamically significant internal carotid artery stenosis 3. Bilateral external carotid artery stenosis, right more severe than left 4. Antegrade flow within both vertebral arteries. Electronically signed by: Sandip Montana M.D. 07/14/2016 6:51 PM Dictated Date/Time: 07/14/2016 6:48 PM
[2016-07-15] VITALS: O2SAT 95
[2016-07-15 07:34] VITALS: BP 134/64; PULSE 73; TEMP 36.8; O2SAT 96
[2016-07-15] MEDS: HYDROCODONE/ACETAMOPHEN 5/325MG TAB PO PRN ×3 (07:37→22:45)
[2016-07-15 07:56] LABS: HEMATOCRIT 32.8 % (42-52); MEAN CELL VOLUME 89.4 fL (80-100); MEAN CORPUSCULAR HEMOGLOBIN 29.4 pg (25-34); MEAN CORPUSCULAR HGB CONC 32.9 g/dl (32-36); MEAN PLATELET VOLUME 8.6 fL (7.4-10.4); PLATELET COUNT 259 K/uL (130-400); RED BLOOD COUNT 3.67 M/uL (4.7-6.1); WHITE BLOOD COUNT 10.37 K/uL (4.8-10.8)
[2016-07-15 08:00] VITALS: O2SAT 96
[2016-07-15] MEDS: CALCIUM ACETATE 667MG GELCAP PO SCH ×3 (08:00→18:18)
[2016-07-15 08:41] LABS: BUN/CREATININE RATIO 3.4 (10-20); POTASSIUM 3.6 mmol/L (3.5-5.1)
[2016-07-15] MEDS: INSULIN ASPART 100 UNITS/ML 3 ML PEN SC SCH ×4 (08:45→21:02)
[2016-07-15 08:52] LABS: CALCIUM 8.7 mg/dl (8.5-10.1)
[2016-07-15] MEDS: NEPHROCAPS PO SCH (09:09)
[2016-07-15] MEDS: METOPROLOL SUCC 25MG EXT REL TAB PO SCH (09:10)
[2016-07-15] MEDS: FUROSEMIDE 40 MG TAB PO SCH ×2 (09:10→16:41)
[2016-07-15] MEDS: CHLORDIAZEPOXIDE 10 MG CAP PO SCH ×2 (09:10→20:56)
[2016-07-15] MEDS: ALLOPURINOL 100 MG TAB PO SCH (10:04)
[2016-07-15] MEDS: RANITIDINE HCL 150 MG TAB PO SCH (10:04)
[2016-07-15] MEDS: LISINOPRIL 40 MG TAB PO SCH (10:05)
--- NOTE | 2016-07-15 10:08 | Nephrology Progress Note ---
Nephrology Progress Note Date of Service Jul 15, 2016. Chief Complaint Provide HD for this patient w/ ESRD admitted following a syncopal event Subjective Mr. Carmichael was seen & examined in his hospital room this morning. He was dialyzed yesterday for 4 hours w/ 3.2 L UF. Treatment was briefly interrupted due to machine malfunction but was resumed on a new dialysis machine without complication. Mr. Carmichael complains of weakness. He has not yet been able to participate in physical therapy. Review of Systems Constitutional: No fever Cardiovascular: No chest pain Respiratory: No dyspnea at rest Abdomen: No pain, No nausea, No vomiting Extremities: No leg edema A complete review of systems was performed. Pertinent positives are noted above. All other systems are negative. Vital Signs Last 8 Hrs Date Time Temp Pulse Resp B/P (MAP) Pulse Ox O2 Delivery O2 Flow Rate FiO2 07/15/16 07:34 36.8 73 18 134/64 (87) 96 Last Recorded Weight Weight (Kilograms): 90.400 Physical Exam General Appearance: no apparent distress Head: normocephalic, atraumatic Eyes: PERRL, EOMI Neck: no adenopathy Respiratory/Chest: lungs clear, no respiratory distress Cardiovascular: regular rate, rhythm Abdomen/GI: normal bowel sounds, non tender, soft Extremities/Musculoskelatal: no pedal edema, + pertinent finding (AVF + bruit) Neurologic/Psych: alert, oriented x 3 Family History FH: diabetes mellitus AUNT FH: stroke GRANDMOTHER Heart disease Hypertension Kidney disease Negative for CKD / ESRD Social History Smoking Status: Unknown if ever smoked Alcohol Use: none (quit 20 yrs ago) Drug Use: other (none currently, but hx of frequent marijuana and cocaine use 20 yrs ago. Tried heroin x1, "but I didn't like it") Marital Status: Housing Status: lives with family Occupation: retired . Retired. Former smoker Laboratory Results Past 24 Hours 07/14/16 10:54 07/15/16 07:45 07/14/16 10:54 07/15/16 07:45 Test 07/14/16 10:54 07/14/16 11:33 07/14/16 15:18 07/14/16 15:53 Red Blood Count 3.43 M/uL (4.7-6.1) Mean Corpuscular Volume 87.2 fL (80-100) Mean Corpuscular Hemoglobin 28.6 pg (25-34) Mean Corpuscular Hemoglobin Concent 32.8 g/dl (32-36) RDW Standard Deviation 50.8 fL (36.4-46.3) RDW Coefficient of Variation 15.7 % (11.5-14.5) Mean Platelet Volume 8.5 fL (7.4-10.4) Prothrombin Time 18.5 SECONDS (9.0-12.0) Prothromb Time International Ratio 1.7 (0.9-1.1) Activated Partial Thromboplast Time 37.8 SECONDS (21.0-31.0) Partial Thromboplastin Ratio 1.5 Anion Gap 11.0 mmol/L (3-11) Est Creatinine Clear Calc Drug Dose 8.2 ml/min Estimated GFR () 5.4 Estimated GFR (Non- 4.7 BUN/Creatinine Ratio 4.0 (10-20) Calcium Level 8.7 mg/dl (8.5-10.1) Bedside Glucose 107 mg/dl (70-99) 108 mg/dl (70-99) Vitamin B12 Level 1103 pg/mL (211-911) 25-Hydroxy Vitamin D Total 46.5 ng/ml (30-100) Test 07/14/16 19:47 07/15/16 07:45 Bedside Glucose 150 mg/dl (70-99) Red Blood Count 3.67 M/uL (4.7-6.1) Mean Corpuscular Volume 89.4 fL (80-100) Mean Corpuscular Hemoglobin 29.4 pg (25-34) Mean Corpuscular Hemoglobin Concent 32.9 g/dl (32-36) RDW Standard Deviation 51.5 fL (36.4-46.3) RDW Coefficient of Variation 15.8 % (11.5-14.5) Mean Platelet Volume 8.6 fL (7.4-10.4) Anion Gap 11.0 mmol/L (3-11) Est Creatinine Clear Calc Drug Dose 12.2 ml/min Estimated GFR () 9.8 Estimated GFR (Non- 8.5 BUN/Creatinine Ratio 3.4 (10-20) Calcium Level 8.7 mg/dl (8.5-10.1) Allergies Coded Allergies: No Known Allergies (Verified , 06/02/16) Medications Current Inpatient Medications Medications (Trade) Dose Ordered Sig/Eliseo Route Start Time Stop Time Status Last Admin Dose Admin Acetaminophen (Tylenol Tab) 650 mg Q4H PRN PO 07/13/16 20:00 08/12/16 19:59 Magnesium Hydroxide (Milk Of Magnesia Susp) 30 ml Q6H PRN PO 07/13/16 20:00 08/12/16 19:59 Ondansetron HCl (Zofran Inj) 4 mg Q6H PRN IV 07/13/16 20:00 08/12/16 19:59 07/14/16 15:57 4 MG Insulin Aspart (novoLOG ASPART) SLIDING SCALE If C... ACHS SC 07/13/16 21:00 08/12/16 20:59 07/14/16 20:47 1 UNITS Glucose (Glucose 40% Gel) 15-30 GRAMS 15 GRAMS... UD PRN PO 07/13/16 20:00 08/12/16 19:59 Glucose (Glucose Chew Tab) 4-8 Tablets 4 Tabl... UD PRN PO 07/13/16 20:00 08/12/16 19:59 Dextrose (Dextrose 50% 50ML Syringe) 25-50ML OF 50% DW IV FOR... UD PRN IV 07/13/16 20:00 08/12/16 19:59 Glucagon (Glucagon Inj) 1 mg UD PRN SQ 07/13/16 20:00 08/12/16 19:59 Allopurinol (Zyloprim Tab) 100 mg DAILY PO 07/14/16 08:00 08/13/16 08:59 07/14/16 16:51 100 MG Atorvastatin Calcium (Lipitor Tab) 20 mg HS PO 07/13/16 21:00 08/12/16 20:59 07/14/16 20:45 20 MG Calcium Acetate (Phoslo Cap) 667 mg TIDM PO 07/14/16 08:00 08/13/16 07:59 07/14/16 16:51 667 MG Chlordiazepoxide (Librium Cap) 10 mg BID PO 07/13/16 21:00 08/12/16 20:59 07/14/16 16:57 10 MG Furosemide (Lasix Tab) 80 mg BID17 PO 07/13/16 21:00 08/12/16 20:59 07/15/16 09:10 80 MG Acetaminophen/ Hydrocodone Bitart ([place] 5/325 Tab) 1 tab Q6H PRN PO 07/13/16 20:00 07/27/16 19:59 07/15/16 07:37 1 TAB Insulin Detemir (Levemir Flexpen/ FlexTouch) 20 unit HS SQ 07/13/16 21:00 08/12/16 20:59 07/14/16 20:47 20 UNIT Lisinopril (Zestril Tab) 40 mg QAM PO 07/14/16 08:00 08/13/16 08:59 07/14/16 16:50 40 MG Meclizine HCl (Antivert Tab) 25 mg Q4H PRN PO 07/13/16 20:00 08/12/16 19:59 Metoprolol Succinate (Toprol Xl Tab) 50 mg QPM PO 07/13/16 21:00 08/12/16 20:59 07/14/16 20:46 50 MG Metoprolol Succinate (Toprol Xl Tab) 75 mg QAM PO 07/14/16 08:00 08/13/16 08:59 07/15/16 09:10 75 MG Tamsulosin HCl (Flomax Cap) 0.4 mg HS PO 07/13/16 21:00 08/12/16 20:59 07/14/16 20:49 0.4 MG Miscellaneous Information (Order Awaiting Action) 1 ea QS N/A 07/14/16 00:00 08/13/16 00:00 Miscellaneous Information (Order Awaiting Action) 1 ea QS N/A 07/14/16 00:00 08/13/16 00:00 Ranitidine HCl (zANTac TAB) 300 mg DAILY PO 07/14/16 08:00 08/13/16 08:59 07/14/16 16:52 300 MG Trazodone HCl (Desyrel Tab) 150 mg HS PRN PO 07/13/16 20:00 08/12/16 19:59 07/14/16 20:48 150 MG Miscellaneous (Iv Fluids Completed) 1 ea PRN PRN N/A 07/13/16 20:15 07/13/17 20:14 Vitamin B Complex/ Vit C/Folic Acid (Nephrocaps) 1 cap QAM PO 07/15/16 08:00 08/14/16 07:59 07/15/16 09:09 1 CAP Warfarin Sodium (Coumadin Tab) 3 mg DAILY@16 PO 07/14/16 16:00 08/13/16 15:59 07/14/16 16:50 3 MG Impression (1) Syncope and collapse (2) End-stage renal disease on hemodialysis (3) Monoclonal gammopathy (4) Hypertension (5) Anemia (6) Atrial fibrillation (7) Supratherapeutic INR (8) Peripheral vascular disease Mr. Carmichael was admitted for evaluation of syncope and weakness. He has ESRD and requires MWF HD. Currently no evidence of infection, arrhythmia or seizure. He did not lose consciousness. He is below his EDW and may have suffered syncope related to orthostasis. 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 Recommendations END STAGE RENAL DISEASE: -- Clinically volume contracted. Electrolytes acceptable. No acute indication for HD today. Will schedule next HD for am. -- Orders entered into EMR and HD RN notified -- Protect left arm AVF -- Patient has metabolic alkalosis. NaHCO3 supplement has been stopped HYPERTENSION: -- staff consultant to check orthostatic BP and pulse x 3 days -- Amlodipine has been discontinued. Continue to monitor. ANEMIA: -- Hgb is < 11.0. Will provide FLOWER w/ HD tomorrow -- Monitor H&H ID: -- CXR film reviewed today. Possible LLL infiltrate. Patient remains afebrile. Will monitor for clinical signs / symptoms of active infection SYNCOPE: -- Carotid doppler report reviewed this am: No hemodynamically significant stenosis -- Head CT report: No hemorrhage or calvarial fracture -- 12 lead ECG reviewed this am: NSR, 71 bpm, PAC, prolonged QT -- Patient to start physical therapy for strengthening
[2016-07-15 11:00] VITALS: BP_SYST 127; BP_SYST 133; BP_SYST 145; BP_DIAS 64; BP_DIAS 76; PULSE 69; PULSE 72; PULSE 80
[2016-07-15 16:00] VITALS: O2SAT 96
[2016-07-15] MEDS ORDERED: DICLOFENAC SOD 1% GEL 100 GM TUBE EXT ONE (16:30)
[2016-07-15] MEDS: WARFARIN SOD 3 MG TAB PO SCH (16:40)
[2016-07-15 16:59] VITALS: BP 146/71; PULSE 68; TEMP 36.7; O2SAT 93
--- NOTE | 2016-07-15 17:34 | Progress Note ---
Subjective Date of Service: Jul 15, 2016. Subjective Pt evaluation today including: conversation w/ patient, physical exam, chart review, lab review, review of inpatient medication list complains of neck pain back pain - doesn't radiate notes that it's been there for days but didn't think to mention it before because it was more off and on - now constant - severe. fairly axial in location especially w neck. notes that he feels like it's a number of different things making him weak no new complaints otherwise. does reiterate / confirm poor appetite before admission Problem List Medical Problems: (1) Atrial flutter with rapid ventricular response Status: Acute (2) Cellulitis of right foot Status: Acute (3) Elevated troponin Status: Acute (4) Fall Status: Acute (5) Falls Status: Acute (6) Pulmonary edema Status: Acute (7) Renal failure Status: Acute (8) Sepsis Status: Acute Review of Systems ros otherwise negative except for as above Objective Vital Signs Date Time Temp Pulse Resp B/P (MAP) Pulse Ox O2 Delivery O2 Flow Rate FiO2 07/15/16 16:59 36.7 68 18 146/71 (96) 93 Room Air 07/15/16 16:00 96 Room Air 07/15/16 11:00 69 145/64 (91) 72 127/76 (93) 80 133/64 (87) 07/15/16 08:00 96 Room Air 07/15/16 07:34 36.8 73 18 134/64 (87) 96 07/15/16 00:00 95 Room Air 07/14/16 23:08 36.7 72 18 129/57 (81) 93 Room Air 07/14/16 20:01 95 Room Air Physical Exam General Appearance: no apparent distress Eyes: EOMI ENT: hearing grossly normal Neck: trachea midline, + pertinent finding (b/l Cspine paraspinals high tone/ tender/decreased ROM - especially on axial compresison - doesn't elicit radicular findings like a true foraminal compression just exacerbates pain. 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 tested, alert, oriented x 3 Skin: normal color, warm/dry Laboratory Results Last 24 Hours Test 07/14/16 19:47 07/15/16 07:15 07/15/16 07:45 07/15/16 11:04 Bedside Glucose 150 mg/dl 87 mg/dl 92 mg/dl White Blood Count 10.37 K/uL Red Blood Count 3.67 M/uL Hemoglobin 10.8 g/dL Hematocrit 32.8 % Mean Corpuscular Volume 89.4 fL Mean Corpuscular Hemoglobin 29.4 pg Mean Corpuscular Hemoglobin Concent 32.9 g/dl RDW Standard Deviation 51.5 fL RDW Coefficient of Variation 15.8 % Platelet Count 259 K/uL Mean Platelet Volume 8.6 fL Sodium Level 136 mmol/L Potassium Level 3.6 mmol/L Chloride Level 95 mmol/L Carbon Dioxide Level 30 mmol/L Anion Gap 11.0 mmol/L Blood Urea Nitrogen 20 mg/dl Creatinine 6.00 mg/dl Est Creatinine Clear Calc Drug Dose 12.2 ml/min Estimated GFR () 9.8 Estimated GFR (Non- 8.5 BUN/Creatinine Ratio 3.4 Random Glucose 85 mg/dl Calcium Level 8.7 mg/dl Assessment and Plan weakness - seems to be predominantly deconditioning - however in his weak/frail state also appearing that this acute neck/back pain likely impairing him more than would be normally expected. does note that he's not been eating as well; has had several hospitalizations recently - all of which could easily precipitate deconditioning. what's unclear is the reason as to why he decompensated now when it appears that he was doing better at dc from SNF. continue to follow, serial exams. B12 and D ok. follow clinically, anticipate rehab/SNF stay poor PO intake, recently low albumin, moderate protein malnutrition - anode worker consulted, encouraged PO intake, continue to follow this even in outpt setting, repeat albumin ~4wks sooner if clinically warranted Falls: in the setting of recent osteo, ESRD PT/OT eval and treat weakness as above likely to need rehab or repeat SNF stay Recent osteo: no new issues Wound consult, follow for any s/s active infection, none so far CXR: ? L base PNA no s/s active infection - continue to follow of abx, no worsening day to day makes this exceedingly unlikley to be an issue ESRD: HD tomorrow, nephrology input appreciated DM: SSI + levemir A1c 06/2016 7.1 sugars tight side of acceptable but continue to follow Afib and coumadin coagulopathy - continue home meds, coumadin reversed - resume at lower dose, no bleeding HTN: continue home meds Other: Full code Coumadin for DVT proph DM, renal diet likely will need SNF or rehab awaiting full PT input
[2016-07-15] MEDS: OXYCODONE/ACETAMINOPHEN 5-325 TAB PO PRN (20:03)
[2016-07-15] MEDS: DICLOFENAC SOD 1% GEL 100 GM TUBE EXT SCH (20:04)
[2016-07-15] MEDS: TAMSULOSIN HCL 0.4 MG CAP PO SCH (20:05)
[2016-07-15] MEDS: ATORVASTATIN 20 MG TAB PO SCH (20:05)
[2016-07-15] MEDS: METOPROLOL SUCC 50MG EXT REL TAB PO SCH (20:56)
[2016-07-15] MEDS: INSULIN DETEMIR FLEXPEN/FLEX TOUCH 100 UNITS/ML 3ML SQ SCH (21:03)
[2016-07-15] MEDS: TRAZODONE HCL 50 MG TAB PO PRN (22:45)
[2016-07-16] VITALS (25 sets, daily range): BP systolic 84–156; BP diastolic 42–76; PULSE 56–70; TEMP 36.5–36.7; O2SAT 91–97
[2016-07-16] MEDS ORDERED: EPOETIN ALFA 10,000 UNITS/ML VIAL IV. SCH (06:00)
[2016-07-16] MEDS: OXYCODONE/ACETAMINOPHEN 5-325 TAB PO PRN ×2 (07:18→19:00)
[2016-07-16] MEDS: DICLOFENAC SOD 1% GEL 100 GM TUBE EXT SCH ×4 (07:19→20:31)
[2016-07-16] MEDS: INSULIN ASPART 100 UNITS/ML 3 ML PEN SC SCH ×4 (07:22→21:35)
[2016-07-16] MEDS: CALCIUM ACETATE 667MG GELCAP PO SCH ×3 (08:00→17:10)
[2016-07-16] MEDS: NEPHROCAPS PO SCH ×2 (08:00→14:29)
[2016-07-16] MEDS: FUROSEMIDE 40 MG TAB PO SCH ×2 (09:00→17:10)
[2016-07-16 09:56] LABS: INR 1.2 (0.9-1.1); PROTHROMBIN TIME (PATIENT) 13.4 SECONDS (9.0-12.0)
--- NOTE | 2016-07-16 10:34 | Nephrology Progress Note ---
Nephrology Progress Note Date of Service Jul 16, 2016. Chief Complaint F/U for ESRD Subjective Bre was seen and examined in his room this am. He has been lying in bed, denies any specific symptoms but has not been walking or getting off the bed. Review of Systems A complete review of systems was performed. Pertinent positives are noted above. All other systems are negative. Vital Signs Last 8 Hrs Date Time Temp Pulse Resp B/P (MAP) Pulse Ox O2 Delivery O2 Flow Rate FiO2 07/16/16 07:34 36.7 63 20 144/69 (94) 94 Last Recorded Weight Weight (Kilograms): 102.100 Physical Exam GENERAL: elderly male, AAA x 3, pleasant, healthy-appearing, not in any distress. NECK: Supple, no JVD. RESPIRATORY: Normal breathing efforts, no accessory muscle use, clear to auscultation bilaterally, no wheezes or rales. CARDIOVASCULAR: S1, S2 normal, rate rhythm regular. EXTREMITY: No lower extremity edema NEURO: speech fluent. PSYCHIATRY: Normal mood and judgment Family History FH: diabetes mellitus AUNT FH: stroke GRANDMOTHER Heart disease Hypertension Kidney disease Negative for CKD / ESRD Social History Smoking Status: Unknown if ever smoked Alcohol Use: none (quit 20 yrs ago) Drug Use: other (none currently, but hx of frequent marijuana and cocaine use 20 yrs ago. Tried heroin x1, "but I didn't like it") Marital Status: Housing Status: lives with family Occupation: retired . Retired. Former smoker Laboratory Results Past 24 Hours Test 07/15/16 11:04 07/15/16 16:56 07/15/16 19:59 07/16/16 04:44 Bedside Glucose 92 mg/dl (70-99) 96 mg/dl (70-99) 132 mg/dl (70-99) Test 07/16/16 07:16 Bedside Glucose 84 mg/dl (70-99) Allergies Coded Allergies: No Known Allergies (Verified , 06/02/16) Medications Current Inpatient Medications Medications (Trade) Dose Ordered Sig/Eliseo Route Start Time Stop Time Status Last Admin Dose Admin Acetaminophen (Tylenol Tab) 650 mg Q4H PRN PO 07/13/16 20:00 08/12/16 19:59 Magnesium Hydroxide (Milk Of Magnesia Susp) 30 ml Q6H PRN PO 07/13/16 20:00 08/12/16 19:59 Ondansetron HCl (Zofran Inj) 4 mg Q6H PRN IV 07/13/16 20:00 08/12/16 19:59 07/14/16 15:57 4 MG Insulin Aspart (novoLOG ASPART) SLIDING SCALE If C... ACHS SC 07/13/16 21:00 08/12/16 20:59 07/16/16 07:22 5 UNITS Glucose (Glucose 40% Gel) 15-30 GRAMS 15 GRAMS... UD PRN PO 07/13/16 20:00 08/12/16 19:59 Glucose (Glucose Chew Tab) 4-8 Tablets 4 Tabl... UD PRN PO 07/13/16 20:00 08/12/16 19:59 Dextrose (Dextrose 50% 50ML Syringe) 25-50ML OF 50% DW IV FOR... UD PRN IV 07/13/16 20:00 08/12/16 19:59 Glucagon (Glucagon Inj) 1 mg UD PRN SQ 07/13/16 20:00 08/12/16 19:59 Allopurinol (Zyloprim Tab) 100 mg DAILY PO 07/14/16 08:00 08/13/16 08:59 07/15/16 10:04 100 MG Atorvastatin Calcium (Lipitor Tab) 20 mg HS PO 07/13/16 21:00 08/12/16 20:59 07/15/16 20:05 20 MG Calcium Acetate (Phoslo Cap) 667 mg TIDM PO 07/14/16 08:00 08/13/16 07:59 07/15/16 18:18 667 MG Chlordiazepoxide (Librium Cap) 10 mg BID PO 07/13/16 21:00 08/12/16 20:59 07/15/16 20:56 10 MG Furosemide (Lasix Tab) 80 mg BID17 PO 07/13/16 21:00 08/12/16 20:59 07/15/16 16:41 80 MG Acetaminophen/ Hydrocodone Bitart ([place] 5/325 Tab) 1 tab Q6H PRN PO 07/13/16 20:00 07/27/16 19:59 07/15/16 22:45 1 TAB Insulin Detemir (Levemir Flexpen/ FlexTouch) 20 unit HS SQ 07/13/16 21:00 08/12/16 20:59 07/15/16 21:03 20 UNIT Lisinopril (Zestril Tab) 40 mg QAM PO 07/14/16 08:00 08/13/16 08:59 07/15/16 10:05 40 MG Meclizine HCl (Antivert Tab) 25 mg Q4H PRN PO 07/13/16 20:00 08/12/16 19:59 Metoprolol Succinate (Toprol Xl Tab) 50 mg QPM PO 07/13/16 21:00 08/12/16 20:59 07/15/16 20:56 50 MG Metoprolol Succinate (Toprol Xl Tab) 75 mg QAM PO 07/14/16 08:00 08/13/16 08:59 07/15/16 09:10 75 MG Tamsulosin HCl (Flomax Cap) 0.4 mg HS PO 07/13/16 21:00 08/12/16 20:59 07/15/16 20:05 0.4 MG Miscellaneous Information (Order Awaiting Action) 1 ea QS N/A 07/14/16 00:00 08/13/16 00:00 Miscellaneous Information (Order Awaiting Action) 1 ea QS N/A 07/14/16 00:00 08/13/16 00:00 Ranitidine HCl (zANTac TAB) 300 mg DAILY PO 07/14/16 08:00 08/13/16 08:59 07/15/16 10:04 300 MG Trazodone HCl (Desyrel Tab) 150 mg HS PRN PO 07/13/16 20:00 08/12/16 19:59 07/15/16 22:45 150 MG Miscellaneous (Iv Fluids Completed) 1 ea PRN PRN N/A 07/13/16 20:15 07/13/17 20:14 Vitamin B Complex/ Vit C/Folic Acid (Nephrocaps) 1 cap QAM PO 07/15/16 08:00 08/14/16 07:59 07/15/16 09:09 1 CAP Warfarin Sodium (Coumadin Tab) 3 mg DAILY@16 PO 07/14/16 16:00 08/13/16 15:59 07/15/16 16:40 3 MG Epoetin Vini (Procrit Inj) 10,000 units TODAY@0600 IV. 07/16/16 06:00 07/16/16 18:00 Diclofenac Sodium (Voltaren 1% Top Gel) 1 appln QID EXT 07/15/16 20:00 08/14/16 19:59 07/16/16 07:19 1 APPLN Oxycodone/ Acetaminophen (Percocet 5-325mg Tab) 1 tab QID PRN PO 07/15/16 16:00 07/29/16 15:59 07/16/16 07:18 1 TAB Impression (1) Syncope and collapse (2) End-stage renal disease on hemodialysis (3) Monoclonal gammopathy (4) Hypertension (5) Anemia (6) Atrial fibrillation (7) Supratherapeutic INR (8) Peripheral vascular disease Mr. Carmichael was admitted for evaluation of syncope and weakness. He has ESRD and requires MWF HD. Currently no evidence of infection, arrhythmia or seizure. He did not lose consciousness. He is below his EDW and may have suffered syncope related to orthostasis. PMH: ESRD on HD MWF at [facility] (HD Rx: 4 hr F-180 2K 2.5Ca EDW 112 15g needles Epogen 2000 units Hectrol 1 mcg), angioplasty venous limb AVF 06/30, HTN, AODM, PVD, IgM [place] monoclonal gammopathy, gout, atrial fibrillation on chronic anticoagulation therapy. Recommendations -- plan for HD this am, volume status and BP acceptable, discussed with HD RN to avoid aggressive UF with HD -- continue on Protein supplement, phosphate binder and renal vitamin -- Protect left arm AVF -- Will provide FLOWER w/ HD today -- Patient needs physical therapy for strengthening and rehab on DC
[2016-07-16] MEDS ORDERED: B-COCAP20 PO ×2 (11:21)
[2016-07-16] MEDS ORDERED: NUTR-7 PO ×2 (11:21)
[2016-07-16] MEDS ORDERED: VLTG EXT ×2 (11:21)
[2016-07-16] MEDS ORDERED: HYDR-5688 PO ×2 (11:21)
--- NOTE | 2016-07-16 11:26 | Discharge Instructions ---
Discharge Instructions Date of Service Jul 16, 2016. Admission Reason for Admission: Frequent Falls Discharge Discharge Diagnosis / Problem: multifactorial weakness Discharge Goals Goal(s): Improve function, Increase independence, Diagnostic testing Activity Recommendations Activity Level: Assistance Required Therapies: Physical Therapy, Occupational Therapy . Additional Information Patient informed of condition: Yes Advance Directives: No DNR: No Level of Care: Skilled (w rehab emphasis) Communicable Disease: No Prognosis: Stable Instructions / Follow-Up Instructions / Follow-Up weakness -multifactorial: deconditioning from frequent acute illnesses (ongoing PT/OT as vigorously as he can tolerate) protein malnutrition - have improvement manager continue to work with pt on improved diet/intake acute muscular neck pain (using voltaren gel TID until improves; strongly suspect all muscular - for completeness Xrays have been ordered, are pending) baseline of frailty with ESRD (ongoing HD) afib//coumadin - follow PT/INR daily for near future, then as clinically warranted once therapeutic again chest pain - evaluated this afternoon (07/16) - quality fits with intercostal spasm, EKG similar to previous, responded appropriately to OMT - ongoing management of intercostal spasm all that's needed at this time PT/INR tomorrow and ongoing daily x at least 4, then as clinically warranted CBC, BMP by 07/21 then as clinically warranted Current Hospital Diet Patient's current hospital diet: Diabetes Type 2 Diet, Renal Diet Discharge Diet Recommended Diet: Diabetes Type 2 Diet, Renal Diet Pending Studies Studies pending at discharge: yes List of pending studies: Cspine xrays Laboratory Results Hemoglobin A1c Test 06/17/16 06:09 Range/Units Estimated Average Glucose 157 mg/dl Hemoglobin A1c 7.1 H 4.5-5.6 % Medical Emergencies . Who to Call and When: Medical Emergencies: If at any time you feel your situation is an emergency, please call 911 immediately. . Non-Emergent Contact Non-Emergency issues call your: Primary Care Provider . . "Provider Documentation" section prepared by Lázaro Landers. . Core Measure Problem Core Measures: None
--- NOTE | 2016-07-16 13:45 | WOUND PROGRESS NOTE ---
DATE: 07/16/2016 SUBJECTIVE: The patient is seen today as an inpatient for followup on a postoperative nonhealing wound to the right foot with associated underlying osteomyelitis as well as a diabetic foot ulcer, Avitia grade 1 of the same foot. The patient was recently hospitalized, but currently has no complaints of any increased pain, swelling or drainage from the site. The patient denies any fever, chills or night sweats. The patient denies any other systemic complaints. OBJECTIVE: The patient's vital signs were reviewed and found to be unremarkable. The patient is afebrile. Both sites today show improvement over the past week's assessment. The ulceration on the plantar surface today measures 1.2 x 0.4 x 0.1 cm and the dorsal wound measures 1.3 x 0.5 x 0.8 cm. No central slough or active drainage, no periwound erythema or odor noted. ASSESSMENT: 1. Postoperative nonhealing wound to the right foot with underlying associated osteomyelitis with improvement. 2. Diabetic foot ulcer, Avitia grade 1 right foot with improvement. PLAN: At this time, no debridement is indicated. The sites will be managed as before with black foam and a wound VAC 125 mm of negative pressure. Wound VAC changed Tuesday, Tuesday, Tuesday on the postoperative wound site and Aquacel AG and gauze on the plantar surface changed daily. The patient will continue his current offloading process as well as his antibiotic therapy. The patient will continue to be monitored as an inpatient and evaluated as an outpatient upon discharge.
[2016-07-16] MEDS ORDERED: BOOST VANILLA PO SCH ×2 (14:00)
[2016-07-16] MEDS: LISINOPRIL 40 MG TAB PO SCH (14:28)
[2016-07-16] MEDS: METOPROLOL SUCC 25MG EXT REL TAB PO SCH (14:28)
[2016-07-16] MEDS: ALLOPURINOL 100 MG TAB PO SCH (14:29)
[2016-07-16] MEDS: RANITIDINE HCL 150 MG TAB PO SCH (14:29)
[2016-07-16] MEDS: CHLORDIAZEPOXIDE 10 MG CAP PO SCH ×2 (14:32→20:35)
[2016-07-16] MEDS: WARFARIN SOD 3 MG TAB PO SCH (15:40)
--- NOTE | 2016-07-16 16:36 | Progress Note ---
Subjective Date of Service: Jul 16, 2016. Subjective Pt evaluation today including: conversation w/ patient, physical exam, chart review, lab review, review of inpatient medication list no new complaints this AM - neck pain improving, still weak but hopeful for placement at [facility] for rehab ros otherwise negative called back th afternoon - chest pain - L sided, sharp and worse at the end of a deep breath - stabbing in quality, fingerpoint narrow as far as area. doesn't actually feel short of breath with it. wonders if it's gas, but hasn't burped to make it go away Problem List Medical Problems: (1) Atrial flutter with rapid ventricular response Status: Acute (2) Cellulitis of right foot Status: Acute (3) Elevated troponin Status: Acute (4) Fall Status: Acute (5) Falls Status: Acute (6) Pulmonary edema Status: Acute (7) Renal failure Status: Acute (8) Sepsis Status: Acute Review of Systems ros otherwise negative except for as above Objective Vital Signs Date Time Temp Pulse Resp B/P (MAP) Pulse Ox O2 Delivery O2 Flow Rate FiO2 07/16/16 14:26 36.5 64 18 153/65 (94) 97 Room Air 07/16/16 13:55 36.5 64 134/57 (82) 07/16/16 13:00 58 120/56 07/16/16 12:45 61 122/57 07/16/16 12:30 56 114/51 07/16/16 12:15 61 102/53 07/16/16 12:00 58 121/53 07/16/16 11:45 58 108/52 07/16/16 11:30 63 144/65 07/16/16 11:16 36.5 57 20 94 Room Air 07/16/16 11:15 61 119/57 07/16/16 11:00 57 124/56 07/16/16 10:45 58 100/53 07/16/16 10:30 58 104/45 07/16/16 10:15 62 109/56 07/16/16 10:00 62 113/52 07/16/16 09:45 57 84/42 07/16/16 09:30 56 113/53 07/16/16 09:26 59 107/48 07/16/16 09:15 36.5 60 111/51 (71) 07/16/16 08:00 Room Air 07/16/16 07:34 36.7 63 20 144/69 (94) 94 07/16/16 00:18 36.6 65 18 124/67 (86) 91 Room Air 07/16/16 00:00 95 Room Air 07/15/16 16:59 36.7 68 18 146/71 (96) 93 Room Air Physical Exam General Appearance: no apparent distress Eyes: EOMI ENT: hearing grossly normal Neck: trachea midline Respiratory/Chest: no respiratory distress, no accessory muscle use, + pertinent finding (ost/msk - L sided lower ribs (predomoninantly at rib 8 left) tender/high tone/decreased ROM - stuck in exhalation posture. muscle energy and balanced ligamentous tension - improved some, pt tolerated well. 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, alert, normal mood/affect Skin: normal color, warm/dry Comments: EKG NSR, nonspecific Twave changes I, avl - similar to prior tracings Laboratory Results Last 24 Hours Test 07/15/16 16:56 07/15/16 19:59 07/16/16 07:16 07/16/16 09:22 Bedside Glucose 96 mg/dl 132 mg/dl 84 mg/dl Prothrombin Time 13.4 SECONDS Prothromb Time International Ratio 1.2 Test 07/16/16 11:14 Bedside Glucose 83 mg/dl Assessment and Plan weakness - seems to be predominantly deconditioning - however in his weak/frail state also appearing that this acute neck/back pain likely impairing him more than would be normally expected. does note that he's not been eating as well; has had several hospitalizations recently - all of which could easily precipitate deconditioning. what's unclear is the reason as to why he decompensated now when it appears that he was doing better at dc from SNF. continue to follow, serial exams. B12 and D ok. follow clinically, anticipate rehab/SNF stay poor PO intake, recently low albumin, moderate protein malnutrition - hydrometer tester consulted, encouraged PO intake, continue to follow this even in outpt setting, repeat albumin ~4wks sooner if clinically warranted. stable today, no changes in this respect neck and back pain -appearing biomechanical/musculoskeletal - voltaren gel helping. 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 L base PNA no s/s active infection - continue to follow of abx, no worsening day to day makes this exceedingly unlikely to be an issue ESRD: had HD today DM: SSI + levemir A1c 06/2016 7.1 sugars continue to be tight side of acceptable but no lows, continue to follow Afib and coumadin coagulopathy - continue home meds, coumadin reversed - resumed at lower dose, no bleeding -- INR still going down - resume home dose and continue to follow closely. HTN: continue home meds Other: Full code Coumadin for DVT proph DM, renal diet for SNF once insurance approval
[2016-07-16] MEDS: BOOST GLUCOSE CONTROL PO SCH (17:09)
--- NOTE | 2016-07-16 17:49 | DIAGNOSTIC IMAGING REPORT ---
CERVICAL SPINE 3 VIEWS CLINICAL HISTORY: Chronic neck pain. FINDINGS: AP, lateral, and odontoid views of the cervical spine are compared to study dated 08/15/2015 and correlated with cervical spine CT dated 12/28/2015. The skeletal structures are osteopenic. There is no radiographic evidence of fracture or subluxation. Vertebral body height and alignment are maintained throughout the cervical spine. The atlantodental articulation appears maintained. The odontoid process and lateral masses appear intact on the open-mouth view. The spinolaminar line is preserved. There is straightening of the cervical lordosis. Tiny anterior osteophytes are seen throughout. Facet arthropathy is seen in the mid to lower cervical region. The intervertebral disc spaces appear maintained. A tiny posterior disc osteophyte complex at C5-C6 may contribute to minimal acquired compromise of the central canal. The prevertebral soft tissues are within normal limits. There is atherosclerotic calcification of the carotid bulbs. The partially imaged apical lung parenchyma appears clear. IMPRESSION: 1. No acute bony abnormality is seen involving the cervical spine. 2. Osteopenia and mild spondylotic change as above. Findings are similar to prior studies. Dictated: 07/16/2016 4:51 PM Transcribed: 07/16/2016 5:48 PM [email or web address] Electronically signed by: Allan Guerrero M.D. 07/16/2016 6:00 PM Dictated Date/Time: 07/16/2016 4:51 PM
[2016-07-16] MEDS ORDERED: NURSING VERBAL MED ORDER ONE (20:15)
[2016-07-16] MEDS: MoRPHine SULFATE 2 MG/ML CARP IV PRN (20:30)
[2016-07-16] MEDS: METOPROLOL SUCC 50MG EXT REL TAB PO SCH (20:32)
[2016-07-16] MEDS: TAMSULOSIN HCL 0.4 MG CAP PO SCH (20:36)
[2016-07-16] MEDS: ATORVASTATIN 20 MG TAB PO SCH (20:36)
[2016-07-16] MEDS: INSULIN DETEMIR FLEXPEN/FLEX TOUCH 100 UNITS/ML 3ML SQ SCH (21:36)
[2016-07-17 07:49] VITALS: BP 138/47; PULSE 69; TEMP 36.6; O2SAT 92
[2016-07-17] MEDS: DICLOFENAC SOD 1% GEL 100 GM TUBE EXT SCH ×4 (08:00→20:01)
[2016-07-17] MEDS: CALCIUM ACETATE 667MG GELCAP PO SCH ×3 (08:08→16:24)
[2016-07-17] MEDS: CHLORDIAZEPOXIDE 10 MG CAP PO SCH ×2 (08:08→20:01)
[2016-07-17] MEDS: ALLOPURINOL 100 MG TAB PO SCH (08:09)
[2016-07-17] MEDS: NEPHROCAPS PO SCH (08:09)
[2016-07-17] MEDS: METOPROLOL SUCC 25MG EXT REL TAB PO SCH (08:09)
[2016-07-17] MEDS: FUROSEMIDE 40 MG TAB PO SCH ×2 (08:09→16:23)
[2016-07-17] MEDS: LISINOPRIL 40 MG TAB PO SCH (08:10)
[2016-07-17] MEDS: RANITIDINE HCL 150 MG TAB PO SCH (08:10)
[2016-07-17] MEDS: INSULIN ASPART 100 UNITS/ML 3 ML PEN SC SCH ×4 (08:44→20:02)
[2016-07-17] MEDS: OXYCODONE/ACETAMINOPHEN 5-325 TAB PO PRN ×2 (08:48→14:56)
--- NOTE | 2016-07-17 11:45 | Progress Note ---
Subjective Date of Service: Jul 17, 2016. Subjective Pt evaluation today including: conversation w/ patient, physical exam, chart review, lab review, review of inpatient medication list no new complaints seems [facility] denial, peer to peer (but unable to be completed until tuesday) and that with PT/OT, patient and myself all feeling that home is not safe, currently no dispo possible. discussed options including congressional appeal - he agrees and is willing to sign HIPAA waivers as needed to help facilitate this Problem List Medical Problems: (1) Atrial flutter with rapid ventricular response Status: Acute (2) Cellulitis of right foot Status: Acute (3) Elevated troponin Status: Acute (4) Fall Status: Acute (5) Falls Status: Acute (6) Pulmonary edema Status: Acute (7) Renal failure Status: Acute (8) Sepsis Status: Acute Review of Systems essentially no new HPI or ROS - stable,no new complaints weak Objective Vital Signs Date Time Temp Pulse Resp B/P (MAP) Pulse Ox O2 Delivery O2 Flow Rate FiO2 07/17/16 08:00 Room Air 07/17/16 07:49 36.6 69 20 138/47 (77) 92 Room Air 07/17/16 00:00 Room Air 07/16/16 23:02 36.7 70 18 142/64 (90) 94 Room Air 07/16/16 16:00 67 18 156/76 (102) 93 Room Air 07/16/16 15:45 97 Room Air 07/16/16 14:26 36.5 64 18 153/65 (94) 97 Room Air 07/16/16 13:55 36.5 64 134/57 (82) 07/16/16 13:00 58 120/56 07/16/16 12:45 61 122/57 07/16/16 12:30 56 114/51 07/16/16 12:15 61 102/53 07/16/16 12:00 58 121/53 07/16/16 11:45 58 108/52 Physical Exam General Appearance: no apparent distress Eyes: EOMI ENT: hearing grossly normal Neck: trachea midline Respiratory/Chest: no respiratory distress, no accessory muscle use Neurologic/Psychiatric: crap game box person II-XII nml as tested, alert Skin: normal color, warm/dry Laboratory Results Last 24 Hours Test 07/16/16 17:06 07/16/16 20:19 07/17/16 08:01 07/17/16 08:23 Bedside Glucose 114 mg/dl 120 mg/dl 70 mg/dl 80 mg/dl Test 07/17/16 09:16 Bedside Glucose 99 mg/dl Assessment and Plan weakness - seems to be predominantly deconditioning - however in his weak/frail state also appearing that this acute neck/back pain likely impairing him more than would be normally expected. does note that he's not been eating as well; has had several hospitalizations recently - all of which could easily precipitate deconditioning. what's unclear is the reason as to why he decompensated now when it appears that he was doing better at dc from SNF. continue to follow, serial exams as clinically warranted. B12 and D ok. absolutely does not appear safe for home dispo - appears most appropriate for SNF/rehab despite insurance denial of such. completely unclear to me the reasons for denial. poor PO intake, recently low albumin, moderate protein malnutrition - sql analyst consulted, encouraged PO intake, continue to follow this even in outpt setting, repeat albumin ~4wks sooner if clinically warranted. no changes in this respect today neck and back pain -appearing biomechanical/musculoskeletal - voltaren gel helping. due to falls, Xrays for completeness, but as expected no acute findings chest pain -rib related - OMT yesterday, no complaints of this today Falls: in the setting of recent osteo, ESRD PT/OT eval and treat weakness as above Recent osteo: no new issues Wound consult, follow for any s/s active infection, none so far abnormal CXR has not been on abx for this, no worsening. not a current/active issue. repeat CXR ~4-6wks ESRD: M/W/F HD DM: SSI + levemir A1c 06/2016 7.1 sugars continue to be tight side of acceptable -- including a 70. because of this - reduce basal slightly to 18 units HS Afib and coumadin coagulopathy - continue home meds, coumadin reversed - but still low INR -- anticipate slow rise, but back on home dosing, follow INR. HTN: continue home meds, continue to follow Other: Full code Coumadin for DVT proph DM, renal diet dispo -PT/OT, patient, myself all feel that SNF vs rehab would be most appropriate setting for pt (OT ECF, PT rehab, pt clearly wants somewhere for ongoing therapy , i do not feel pt safe in current condition in unsupervised environment) -case management has been informing me that pt is not approved for any of the above due to no acute diagnosis as for reason for admission -i strongly suspect the reason for his weakness is multifactorial - age, ESRD and other comorbidities, recent hospitalizations, deconditioning, protein malnutrition, muscular pain --> and that he is overall frail enough that it would not take a single "dominant" issue for him to decompensate; further, in his current state he appears clearly too weak to go home, so it is irrational to deny him therapy in some setting based on the lack of an acute diagnosis for his weakness (he is weak enough so as to not be safe at home regardless of cause , and conversely, if he had an acute illness requiring admission without the weakness, then ongoing therapy wouldn't be necessary in spite of an acute diagnosis -- ie there is no rational connection between +/- of an acute diagnosis currently and his need for ongoing therapy in a supervised/protected environment) -was denied SNF late yesterday and unable to take steps to remedy this -called peer to peer but have been informed this won't even be able to take place until tuesday, thereby leaving him exposed to the unnecessary risk of being a hospitalized patient for an additional 2 days (beyond the time already accumulated because of lack of insurance approval for disposition). fortunately he is in a room by himself, but nationwide statistics raise concern that his insurance company is needlessly leaving him exposed for a nosocomial infection; and given the therapy he would receive at SNF or rehab would be more intensive than what we can do here, at the very least they are provoking a worsening of his deconditioning. currently i have no remedy for this, as my current options are home (unacceptable risk, huge risk of falls/injury/ permanent consequences) or remain in hospital (with the above outlined risks) -left message requesting expedited peer to peer, and left both my name and my partner who will be assuming his care 07/19/16 -with pt's permission, also started congressional appeal, which we were told before by case management is an option. 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
--- NOTE | 2016-07-17 12:21 | Nephrology Progress Note ---
Nephrology Progress Note Date of Service Jul 17, 2016. Chief Complaint F/U for ESRD Subjective Bre was seen and examined in his room this morning. He was sleeping but woke up , seems very lethergic but answered question appropriately. BP, HR stable. Afebrile, denies any specific symptoms. Review of Systems A complete review of systems was performed. Pertinent positives are noted above. All other systems are negative. Vital Signs Last 8 Hrs Date Time Temp Pulse Resp B/P (MAP) Pulse Ox O2 Delivery O2 Flow Rate FiO2 07/17/16 07:49 36.6 69 20 138/47 (77) 92 Room Air Last Recorded Weight Weight (Kilograms): 102.000 Physical Exam GENERAL: elderly male, AAA x 3, sleepy, drowsy and lethergic, not in any distress. NECK: Supple, no JVD. RESPIRATORY: Normal breathing efforts, no accessory muscle use, clear to auscultation bilaterally, no wheezes or rales. CARDIOVASCULAR: S1, S2 normal, rate rhythm regular. EXTREMITY: No lower extremity edema NEURO: speech fluent. PSYCHIATRY: Normal mood and judgment Family History FH: diabetes mellitus AUNT FH: stroke GRANDMOTHER Heart disease Hypertension Kidney disease Negative for CKD / ESRD Social History Smoking Status: Unknown if ever smoked Alcohol Use: none (quit 20 yrs ago) Drug Use: other (none currently, but hx of frequent marijuana and cocaine use 20 yrs ago. Tried heroin x1, "but I didn't like it") Marital Status: Housing Status: lives with family Occupation: retired . Retired. Former smoker Laboratory Results Past 24 Hours Test 07/16/16 11:14 07/16/16 17:06 07/16/16 20:19 07/17/16 08:01 Bedside Glucose 83 mg/dl (70-99) 114 mg/dl (70-99) 120 mg/dl (70-99) 70 mg/dl (70-99) Test 07/17/16 08:23 Bedside Glucose 80 mg/dl (70-99) Allergies Coded Allergies: No Known Allergies (Verified , 06/02/16) Medications Current Inpatient Medications Medications (Trade) Dose Ordered Sig/Eliseo Route Start Time Stop Time Status Last Admin Dose Admin Acetaminophen (Tylenol Tab) 650 mg Q4H PRN PO 07/13/16 20:00 08/12/16 19:59 Magnesium Hydroxide (Milk Of Magnesia Susp) 30 ml Q6H PRN PO 07/13/16 20:00 08/12/16 19:59 Ondansetron HCl (Zofran Inj) 4 mg Q6H PRN IV 07/13/16 20:00 08/12/16 19:59 07/14/16 15:57 4 MG Insulin Aspart (novoLOG ASPART) SLIDING SCALE If C... ACHS SC 07/13/16 21:00 08/12/16 20:59 07/16/16 19:03 2 UNITS Glucose (Glucose 40% Gel) 15-30 GRAMS 15 GRAMS... UD PRN PO 07/13/16 20:00 08/12/16 19:59 Glucose (Glucose Chew Tab) 4-8 Tablets 4 Tabl... UD PRN PO 07/13/16 20:00 08/12/16 19:59 Dextrose (Dextrose 50% 50ML Syringe) 25-50ML OF 50% DW IV FOR... UD PRN IV 07/13/16 20:00 08/12/16 19:59 Glucagon (Glucagon Inj) 1 mg UD PRN SQ 07/13/16 20:00 08/12/16 19:59 Allopurinol (Zyloprim Tab) 100 mg DAILY PO 07/14/16 08:00 08/13/16 08:59 07/17/16 08:09 100 MG Atorvastatin Calcium (Lipitor Tab) 20 mg HS PO 07/13/16 21:00 08/12/16 20:59 07/16/16 20:36 20 MG Calcium Acetate (Phoslo Cap) 667 mg TIDM PO 07/14/16 08:00 08/13/16 07:59 07/17/16 08:08 667 MG Chlordiazepoxide (Librium Cap) 10 mg BID PO 07/13/16 21:00 08/12/16 20:59 07/17/16 08:08 10 MG Furosemide (Lasix Tab) 80 mg BID17 PO 07/13/16 21:00 08/12/16 20:59 07/17/16 08:09 80 MG Acetaminophen/ Hydrocodone Bitart ([place] 5/325 Tab) 1 tab Q6H PRN PO 07/13/16 20:00 07/27/16 19:59 07/15/16 22:45 1 TAB Insulin Detemir (Levemir Flexpen/ FlexTouch) 20 unit HS SQ 07/13/16 21:00 08/12/16 20:59 07/16/16 21:36 20 UNIT Lisinopril (Zestril Tab) 40 mg QAM PO 07/14/16 08:00 08/13/16 08:59 07/17/16 08:10 40 MG Meclizine HCl (Antivert Tab) 25 mg Q4H PRN PO 07/13/16 20:00 08/12/16 19:59 Metoprolol Succinate (Toprol Xl Tab) 50 mg QPM PO 07/13/16 21:00 08/12/16 20:59 07/16/16 20:32 50 MG Metoprolol Succinate (Toprol Xl Tab) 75 mg QAM PO 07/14/16 08:00 08/13/16 08:59 07/17/16 08:09 75 MG Tamsulosin HCl (Flomax Cap) 0.4 mg HS PO 07/13/16 21:00 08/12/16 20:59 07/16/16 20:36 0.4 MG Miscellaneous Information (Order Awaiting Action) 1 ea QS N/A 07/14/16 00:00 08/13/16 00:00 Miscellaneous Information (Order Awaiting Action) 1 ea QS N/A 07/14/16 00:00 08/13/16 00:00 Ranitidine HCl (zANTac TAB) 300 mg DAILY PO 07/14/16 08:00 08/13/16 08:59 07/17/16 08:10 300 MG Trazodone HCl (Desyrel Tab) 150 mg HS PRN PO 07/13/16 20:00 08/12/16 19:59 07/15/16 22:45 150 MG Miscellaneous (Iv Fluids Completed) 1 ea PRN PRN N/A 07/13/16 20:15 07/13/17 20:14 Vitamin B Complex/ Vit C/Folic Acid (Nephrocaps) 1 cap QAM PO 07/15/16 08:00 08/14/16 07:59 07/17/16 08:09 1 CAP Warfarin Sodium (Coumadin Tab) 3 mg DAILY@16 PO 07/14/16 16:00 08/13/16 15:59 07/16/16 15:40 3 MG Diclofenac Sodium (Voltaren 1% Top Gel) 1 appln QID EXT 07/15/16 20:00 08/14/16 19:59 07/16/16 20:31 1 APPLN Oxycodone/ Acetaminophen (Percocet 5-325mg Tab) 1 tab QID PRN PO 07/15/16 16:00 07/29/16 15:59 07/17/16 08:48 1 TAB Enteral Nutritional Formula (Boost Glucose Control) 1 can QDD PO 07/16/16 17:00 08/15/16 16:59 07/16/16 17:09 1 CAN Morphine Sulfate (MoRPHine SULFATE INJ) 2 mg Q2H PRN IV 07/16/16 20:30 07/30/16 20:29 07/16/16 20:30 2 MG Impression (1) Syncope and collapse (2) End-stage renal disease on hemodialysis (3) Monoclonal gammopathy (4) Hypertension (5) Anemia (6) Atrial fibrillation (7) Supratherapeutic INR (8) Peripheral vascular disease Mr. Carmichael was admitted for evaluation of syncope and weakness. He has ESRD and requires MWF HD. Currently no evidence of infection, arrhythmia or seizure. He did not lose consciousness. He is below his EDW and may have suffered syncope related to orthostasis. PMH: ESRD on HD MWF at [facility] (HD Rx: 4 hr F-180 2K 2.5Ca EDW 112 15g needles Epogen 2000 units Hectrol 1 mcg), angioplasty venous limb AVF 06/30, HTN, AODM, PVD, IgM [place] monoclonal gammopathy, gout, atrial fibrillation on chronic anticoagulation therapy. Recommendations -- currently volume status and BP acceptable, had HD yesterday. -- continue on Protein supplement, phosphate binder and renal vitamin -- Protect left arm AVF -- received FLOWER 07/16/16 -- Patient needs physical therapy for strengthening and rehab on DC
[2016-07-17 15:05] VITALS: BP 142/65; PULSE 74; TEMP 36.7; O2SAT 94
[2016-07-17] MEDS: MoRPHine SULFATE 2 MG/ML CARP IV PRN (16:07)
[2016-07-17 16:08] VITALS: BP 143/65; PULSE 74; O2SAT 97
[2016-07-17] MEDS: WARFARIN SOD 3 MG TAB PO SCH (16:23)
[2016-07-17] MEDS: BOOST GLUCOSE CONTROL PO SCH (16:25)
[2016-07-17] MEDS: METOPROLOL SUCC 50MG EXT REL TAB PO SCH (20:01)
[2016-07-17] MEDS: ATORVASTATIN 20 MG TAB PO SCH (20:03)
[2016-07-17] MEDS: TAMSULOSIN HCL 0.4 MG CAP PO SCH (20:03)
[2016-07-17] MEDS ORDERED: INSULIN DETEMIR FLEXPEN/FLEX TOUCH 100 UNITS/ML 3ML SQ SCH (22:00)
[2016-07-17 23:00] VITALS: BP 145/63; PULSE 71; TEMP 36.5; O2SAT 96
[2016-07-18] MEDS: MoRPHine SULFATE 2 MG/ML CARP IV PRN ×3 (05:19→23:25)
[2016-07-18 07:55] VITALS: BP 119/62; PULSE 68; TEMP 36.7; O2SAT 96
[2016-07-18] MEDS: DICLOFENAC SOD 1% GEL 100 GM TUBE EXT SCH ×4 (08:06→20:00)
[2016-07-18] MEDS: OXYCODONE/ACETAMINOPHEN 5-325 TAB PO PRN ×2 (08:06→15:42)
[2016-07-18] MEDS: CHLORDIAZEPOXIDE 10 MG CAP PO SCH ×2 (08:07→19:44)
[2016-07-18] MEDS: LISINOPRIL 40 MG TAB PO SCH (08:07)
[2016-07-18] MEDS: ALLOPURINOL 100 MG TAB PO SCH (08:07)
[2016-07-18] MEDS: NEPHROCAPS PO SCH (08:08)
[2016-07-18] MEDS: CALCIUM ACETATE 667MG GELCAP PO SCH ×3 (08:08→16:44)
[2016-07-18] MEDS: METOPROLOL SUCC 25MG EXT REL TAB PO SCH (08:08)
[2016-07-18] MEDS: RANITIDINE HCL 150 MG TAB PO SCH (08:08)
[2016-07-18] MEDS: FUROSEMIDE 40 MG TAB PO SCH ×2 (08:10→16:44)
[2016-07-18] MEDS: INSULIN ASPART 100 UNITS/ML 3 ML PEN SC SCH ×4 (09:50→22:00)
[2016-07-18 09:53] LABS: INR 1.6 (0.9-1.1); PROTHROMBIN TIME (PATIENT) 17.8 SECONDS (9.0-12.0)
[2016-07-18 10:27] LABS: BUN/CREATININE RATIO 4.5 (10-20); CALCIUM 9.2 mg/dl (8.5-10.1); CREATININE 6.8 mg/dl (0.60-1.40); POTASSIUM 3.6 mmol/L (3.5-5.1)
--- NOTE | 2016-07-18 10:54 | Nephrology Progress Note ---
Nephrology Progress Note Date of Service Jul 18, 2016. Chief Complaint F/U for ESRD Subjective Bre was seen and examined in his room this morning with daughter Zita at bedside. He was awake, alert, denied any symptoms. BP, HR stable. Afebrile, denies any specific symptoms. Review of Systems A complete review of systems was performed. Pertinent positives are noted above. All other systems are negative. Vital Signs Last 8 Hrs Date Time Temp Pulse Resp B/P (MAP) Pulse Ox O2 Delivery O2 Flow Rate FiO2 07/18/16 07:55 36.7 68 18 119/62 (81) 96 Room Air Last Recorded Weight Weight (Kilograms): 95.800 Physical Exam GENERAL: elderly male, AAA x 3, not in any distress. NECK: Supple, no JVD. RESPIRATORY: Normal breathing efforts, no accessory muscle use, clear to auscultation bilaterally, no wheezes or rales. CARDIOVASCULAR: S1, S2 normal, rate rhythm regular. EXTREMITY: No lower extremity edema, wound vac in right foot. NEURO: speech fluent. PSYCHIATRY: Normal mood and judgment Family History FH: diabetes mellitus AUNT FH: stroke GRANDMOTHER Heart disease Hypertension Kidney disease Negative for CKD / ESRD Social History Smoking Status: Unknown if ever smoked Alcohol Use: none (quit 20 yrs ago) Drug Use: other (none currently, but hx of frequent marijuana and cocaine use 20 yrs ago. Tried heroin x1, "but I didn't like it") Marital Status: Housing Status: lives with family Occupation: retired . Retired. Former smoker Laboratory Results Past 24 Hours 07/18/16 09:18 Test 07/17/16 11:48 07/17/16 16:43 07/17/16 19:58 07/18/16 07:51 Bedside Glucose 83 mg/dl (70-99) 103 mg/dl (70-99) 103 mg/dl (70-99) 94 mg/dl (70-99) Test 07/18/16 09:18 Prothrombin Time 17.8 SECONDS (9.0-12.0) Prothromb Time International Ratio 1.6 (0.9-1.1) Anion Gap 13.0 mmol/L (3-11) Est Creatinine Clear Calc Drug Dose 10.8 ml/min Estimated GFR () 8.4 Estimated GFR (Non- 7.3 BUN/Creatinine Ratio 4.5 (10-20) Calcium Level 9.2 mg/dl (8.5-10.1) Allergies Coded Allergies: No Known Allergies (Verified , 06/02/16) Medications Current Inpatient Medications Medications (Trade) Dose Ordered Sig/Eliseo Route Start Time Stop Time Status Last Admin Dose Admin Acetaminophen (Tylenol Tab) 650 mg Q4H PRN PO 07/13/16 20:00 08/12/16 19:59 07/17/16 21:24 650 MG Magnesium Hydroxide (Milk Of Magnesia Susp) 30 ml Q6H PRN PO 07/13/16 20:00 08/12/16 19:59 Ondansetron HCl (Zofran Inj) 4 mg Q6H PRN IV 07/13/16 20:00 08/12/16 19:59 07/14/16 15:57 4 MG Insulin Aspart (novoLOG ASPART) SLIDING SCALE If C... ACHS SC 07/13/16 21:00 08/12/16 20:59 07/16/16 19:03 2 UNITS Glucose (Glucose 40% Gel) 15-30 GRAMS 15 GRAMS... UD PRN PO 07/13/16 20:00 08/12/16 19:59 Glucose (Glucose Chew Tab) 4-8 Tablets 4 Tabl... UD PRN PO 07/13/16 20:00 08/12/16 19:59 Dextrose (Dextrose 50% 50ML Syringe) 25-50ML OF 50% DW IV FOR... UD PRN IV 07/13/16 20:00 08/12/16 19:59 Glucagon (Glucagon Inj) 1 mg UD PRN SQ 07/13/16 20:00 08/12/16 19:59 Allopurinol (Zyloprim Tab) 100 mg DAILY PO 07/14/16 08:00 08/13/16 08:59 07/18/16 08:07 100 MG Atorvastatin Calcium (Lipitor Tab) 20 mg HS PO 07/13/16 21:00 08/12/16 20:59 07/17/16 20:03 20 MG Calcium Acetate (Phoslo Cap) 667 mg TIDM PO 07/14/16 08:00 08/13/16 07:59 07/18/16 08:08 667 MG Chlordiazepoxide (Librium Cap) 10 mg BID PO 07/13/16 21:00 08/12/16 20:59 07/18/16 08:07 10 MG Furosemide (Lasix Tab) 80 mg BID17 PO 07/13/16 21:00 08/12/16 20:59 07/18/16 08:10 80 MG Acetaminophen/ Hydrocodone Bitart ([place] 5/325 Tab) 1 tab Q6H PRN PO 07/13/16 20:00 07/27/16 19:59 07/15/16 22:45 1 TAB Lisinopril (Zestril Tab) 40 mg QAM PO 07/14/16 08:00 08/13/16 08:59 07/18/16 08:07 40 MG Meclizine HCl (Antivert Tab) 25 mg Q4H PRN PO 07/13/16 20:00 08/12/16 19:59 Metoprolol Succinate (Toprol Xl Tab) 50 mg QPM PO 07/13/16 21:00 08/12/16 20:59 07/16/16 20:32 50 MG Metoprolol Succinate (Toprol Xl Tab) 75 mg QAM PO 07/14/16 08:00 08/13/16 08:59 07/18/16 08:08 75 MG Tamsulosin HCl (Flomax Cap) 0.4 mg HS PO 07/13/16 21:00 08/12/16 20:59 07/17/16 20:03 0.4 MG Miscellaneous Information (Order Awaiting Action) 1 ea QS N/A 07/14/16 00:00 08/13/16 00:00 Miscellaneous Information (Order Awaiting Action) 1 ea QS N/A 07/14/16 00:00 08/13/16 00:00 Ranitidine HCl (zANTac TAB) 300 mg DAILY PO 07/14/16 08:00 08/13/16 08:59 07/18/16 08:08 300 MG Trazodone HCl (Desyrel Tab) 150 mg HS PRN PO 07/13/16 20:00 08/12/16 19:59 07/15/16 22:45 150 MG Miscellaneous (Iv Fluids Completed) 1 ea PRN PRN N/A 07/13/16 20:15 07/13/17 20:14 Vitamin B Complex/ Vit C/Folic Acid (Nephrocaps) 1 cap QAM PO 07/15/16 08:00 08/14/16 07:59 07/18/16 08:08 1 CAP Warfarin Sodium (Coumadin Tab) 3 mg DAILY@16 PO 07/14/16 16:00 08/13/16 15:59 07/17/16 16:23 3 MG Diclofenac Sodium (Voltaren 1% Top Gel) 1 appln QID EXT 07/15/16 20:00 08/14/16 19:59 07/18/16 08:06 1 APPLN Oxycodone/ Acetaminophen (Percocet 5-325mg Tab) 1 tab QID PRN PO 07/15/16 16:00 07/29/16 15:59 07/18/16 08:06 1 TAB Enteral Nutritional Formula (Boost Glucose Control) 1 can QDD PO 07/16/16 17:00 08/15/16 16:59 07/16/16 17:09 1 CAN Morphine Sulfate (MoRPHine SULFATE INJ) 2 mg Q2H PRN IV 07/16/16 20:30 07/30/16 20:29 07/18/16 05:19 2 MG Impression (1) Syncope and collapse (2) End-stage renal disease on hemodialysis (3) Monoclonal gammopathy (4) Hypertension (5) Anemia (6) Atrial fibrillation (7) Supratherapeutic INR (8) Peripheral vascular disease Mr. Carmichael was admitted for evaluation of syncope and weakness. He has ESRD and requires MWF HD. Currently no evidence of infection, arrhythmia or seizure. He did not lose consciousness. He is below his EDW and may have suffered syncope related to orthostasis. PMH: ESRD on HD MWF at [facility] (HD Rx: 4 hr F-180 2K 2.5Ca EDW 112 15g needles Epogen 2000 units Hectrol 1 mcg), angioplasty venous limb AVF 06/30, HTN, AODM, PVD, IgM [place] monoclonal gammopathy, gout, atrial fibrillation on chronic anticoagulation therapy. Recommendations -- currently volume status and BP acceptable, had HD Tuesday -- continue on Protein supplement, phosphate binder and renal vitamin -- Protect left arm AVF -- received FLOWER 07/16/16 -- Patient waiting on insurance approval to go to a rehab however, insurance has been repeatedly denying.
[2016-07-18 15:59] VITALS: BP 132/57; PULSE 70; TEMP 36.4; O2SAT 93
--- NOTE | 2016-07-18 16:08 | Progress Note ---
Subjective Date of Service: Jul 18, 2016. Subjective Pt evaluation today including: conversation w/ patient, physical exam, chart review, lab review, conversation w/ wound care center consultant, review of inpatient medication list recurrent L sided rib pain - OMT done and improved some. asks about doing PT w wound vac on. we re-discuss dispo situation including he reiterates he isn't safe at home in current state - wants to go somewhere to get therapy, appreciates our efforts including congressional notification. Problem List Medical Problems: (1) Atrial flutter with rapid ventricular response Status: Acute (2) Cellulitis of right foot Status: Acute (3) Elevated troponin Status: Acute (4) Fall Status: Acute (5) Falls Status: Acute (6) Pulmonary edema Status: Acute (7) Renal failure Status: Acute (8) Sepsis Status: Acute Review of Systems Constitutional: + weakness Musculoskeletal: + see HPI ROS otherwise negative except for as above Objective Vital Signs Date Time Temp Pulse Resp B/P (MAP) Pulse Ox O2 Delivery O2 Flow Rate FiO2 07/18/16 15:59 36.4 70 20 132/57 (82) 93 Room Air 07/18/16 08:00 Room Air 07/18/16 07:55 36.7 68 18 119/62 (81) 96 Room Air 07/18/16 00:00 Room Air 07/17/16 23:00 36.5 71 20 145/63 (90) 96 Room Air 07/17/16 21:42 Room Air 07/17/16 16:08 74 20 143/65 (91) 97 Physical Exam General Appearance: no apparent distress Eyes: EOMI ENT: hearing grossly normal Neck: trachea midline Respiratory/Chest: no respiratory distress, no accessory muscle use, + pertinent finding (ost/msk - L lower ribs 8-10 (predominantly 8) stuck in exhalation - balanced ligamentous tension - improved, pt tolerated well) Extremities: normal range of motion (wound vac present R foot) Neurologic/Psychiatric: early interventionist II-XII nml as tested, alert, normal mood/affect Skin: normal color, warm/dry Laboratory Results Last 24 Hours Test 07/17/16 16:43 07/17/16 19:58 07/18/16 07:51 07/18/16 09:18 Bedside Glucose 103 mg/dl 103 mg/dl 94 mg/dl Prothrombin Time 17.8 SECONDS Prothromb Time International Ratio 1.6 Sodium Level 135 mmol/L Potassium Level 3.6 mmol/L Chloride Level 97 mmol/L Carbon Dioxide Level 25 mmol/L Anion Gap 13.0 mmol/L Blood Urea Nitrogen 30 mg/dl Creatinine 6.80 mg/dl Est Creatinine Clear Calc Drug Dose 10.8 ml/min Estimated GFR () 8.4 Estimated GFR (Non- 7.3 BUN/Creatinine Ratio 4.5 Random Glucose 98 mg/dl Calcium Level 9.2 mg/dl Test 07/18/16 12:02 Bedside Glucose 107 mg/dl Assessment and Plan weakness - seems to be predominantly deconditioning - however in his weak/frail state also appearing that this acute neck/back pain likely impairing him more than would be normally expected. as of 07/18 neck and back pain clearly improving. does note that he'd not been eating as well; has had several hospitalizations recently - all of which could easily precipitate deconditioning. what's unclear is the reason as to why he decompensated now when it appears that he was doing better at dc from SNF, but after days of review, only clear acute is the MSK pain. continue to follow, serial exams as clinically warranted. B12 and D ok. absolutely does not appear safe for home dispo - appears most appropriate for SNF/rehab despite insurance denial of such. completely unclear to me the reasons for denial. poor PO intake, recently low albumin, moderate protein malnutrition - medical care administrator consulted, encouraged PO intake, continue to follow this even in outpt setting, repeat albumin ~4wks sooner if clinically warranted. no changes in this respect yet again today neck and back pain -appearing biomechanical/musculoskeletal - joaquinaren gel helping. due to falls, Xrays for completeness, but as expected no acute findings chest pain -rib related - OMT 07/16, then again today rib region somatic dysfunction -OMT as above Falls: in the setting of recent osteo, ESRD PT/OT eval and treat weakness as above Recent osteo: no new issues Wound consult, follow for any s/s active infection, none so far abnormal CXR has not been on abx for this, no worsening. not a current/active issue. repeat CXR ~4-6wks ESRD: M/W/F HD DM: SSI + levemir A1c 06/2016 7.1 sugars continue to be tight - actually levemir ended up held yesterday - likely due to far less carb intake in controlled environment - for now loosen carb ratio and correction factor, hold levemir and follow -- quite conceivable that on controlled, less carb heavy diet, he may not need nearly the intervention for his DM Afib and coumadin coagulopathy - continue home meds, coumadin reversed - but still low INR -- anticipate slow rise, but back on home dosing, follow INR. up to 1.6 today HTN: continue home meds, continue to follow diabetic foot wound / osteomyelitis -management as per wound clinic, including wound vac Other: Full code Coumadin for DVT proph DM, renal diet dispo -PT/OT, patient, myself all feel that SNF vs rehab would be most appropriate setting for pt (OT ECF, PT rehab, pt clearly wants somewhere for ongoing therapy , i do not feel pt safe in current condition in unsupervised environment) -case management has been informing me that pt is not approved for any of the above due to no acute diagnosis as for reason for admission -i strongly suspect the reason for his weakness is multifactorial - age, ESRD and other comorbidities, recent hospitalizations, deconditioning, protein malnutrition, muscular pain --> and that he is overall frail enough that it would not take a single "dominant" issue for him to decompensate; further, in his current state he appears clearly too weak to go home, so it is irrational to deny him therapy in some setting based on the lack of an acute diagnosis for his weakness (he is weak enough so as to not be safe at home regardless of cause , and conversely, if he had an acute illness requiring admission without the weakness, then ongoing therapy wouldn't be necessary in spite of an acute diagnosis -- ie there is no rational connection between +/- of an acute diagnosis currently and his need for ongoing therapy in a supervised/protected environment) -additionally has wound vac for diabetic foot infection, further complicating his ability for self-care at home in current weakened state -was denied SNF late yesterday and unable to take steps to remedy this -called peer to peer but have been informed this won't even be able to take place until tuesday, thereby leaving him exposed to the unnecessary risk of being a hospitalized patient for an additional 2 days (beyond the time already accumulated because of lack of insurance approval for disposition). fortunately he is in a room by himself, but nationwide statistics raise concern that his insurance company is needlessly leaving him exposed for a nosocomial infection; and given the therapy he would receive at SNF or rehab would be more intensive than what we can do here, at the very least they are provoking a worsening of his deconditioning. currently i have no remedy for this, as my current options are home (unacceptable risk, huge risk of falls/injury/ permanent consequences) or remain in hospital (with the above outlined risks) -left message requesting expedited peer to peer, and left both my name and my partner who will be assuming his care 07/19/16 -with pt's permission, also started congressional appeal, which we were told before by case management is an option. pt completed HIPAA waiver for congress as well.
[2016-07-18] MEDS: WARFARIN SOD 3 MG TAB PO SCH (16:43)
[2016-07-18] MEDS: BOOST GLUCOSE CONTROL PO SCH (16:46)
[2016-07-18] MEDS: METOPROLOL SUCC 50MG EXT REL TAB PO SCH (19:43)
[2016-07-18] MEDS: ATORVASTATIN 20 MG TAB PO SCH (19:44)
[2016-07-18] MEDS: TAMSULOSIN HCL 0.4 MG CAP PO SCH (19:44)
[2016-07-18 23:07] VITALS: BP 142/61; PULSE 67; TEMP 36.8; O2SAT 95
[2016-07-19] VITALS (22 sets, daily range): BP systolic 79–142; BP diastolic 46–94; PULSE 56–74; TEMP 36.4–36.8; O2SAT 93–95
[2016-07-19] MEDS: OXYCODONE/ACETAMINOPHEN 5-325 TAB PO PRN (03:35)
[2016-07-19] MEDS: DICLOFENAC SOD 1% GEL 100 GM TUBE EXT SCH ×2 (03:36→12:00)
[2016-07-19] MEDS: CALCIUM ACETATE 667MG GELCAP PO SCH ×2 (08:00→12:00)
[2016-07-19] MEDS: MoRPHine SULFATE 2 MG/ML CARP IV PRN ×3 (08:07→15:35)
[2016-07-19] MEDS: INSULIN ASPART 100 UNITS/ML 3 ML PEN SC SCH ×2 (08:12→13:42)
[2016-07-19] MEDS: FUROSEMIDE 40 MG TAB PO SCH (09:00)
--- NOTE | 2016-07-19 09:12 | Dialysis Progress Note ---
Hemodialysis Note Date of Service Jul 19, 2016. Chief Complaint F/U for ESRD Donna Díaz was seen and examined during HD this morning. He was awake, alert, denied any symptoms. BP, HR stable. Afebrile, denies any specific symptoms. Review of Systems A complete review of systems was performed. Pertinent positives are noted above. All other systems are negative. Vital Signs Last 8 Hrs Date Time Temp Pulse Resp B/P (MAP) Pulse Ox O2 Delivery O2 Flow Rate FiO2 07/19/16 09:00 60 105/57 07/19/16 08:45 63 142/94 07/19/16 08:40 102/58 07/19/16 08:37 61 79/60 07/19/16 08:21 36.4 64 104/75 (85) 07/19/16 07:09 36.8 68 20 113/54 (73) 95 Room Air 72 117/56 (76) 74 135/54 (81) Last Recorded Weight Weight (Kilograms): 98.400 Physical Exam GENERAL: elderly male, AAA x 3, not in any distress. NECK: Supple, no JVD. RESPIRATORY: Normal breathing efforts, no accessory muscle use, clear to auscultation bilaterally, no wheezes or rales. CARDIOVASCULAR: S1, S2 normal, rate rhythm regular. EXTREMITY: No lower extremity edema, wound vac in right foot. NEURO: speech fluent. PSYCHIATRY: Normal mood and judgement Family History Negative for CKD / ESRD Social History Smoking Status: Unknown if ever smoked Alcohol Use: none (quit 20 yrs ago) Drug Use: other (none currently, but hx of frequent marijuana and cocaine use 20 yrs ago. Tried heroin x1, "but I didn't like it") Marital Status: Housing Status: lives with family Occupation: retired . Retired. Former smoker Laboratory Results Past 24 Hours 07/18/16 09:18 Test 07/18/16 09:18 07/18/16 12:02 07/18/16 16:40 07/18/16 19:38 Prothrombin Time 17.8 SECONDS (9.0-12.0) Prothromb Time International Ratio 1.6 (0.9-1.1) Anion Gap 13.0 mmol/L (3-11) Est Creatinine Clear Calc Drug Dose 10.8 ml/min Estimated GFR () 8.4 Estimated GFR (Non- 7.3 BUN/Creatinine Ratio 4.5 (10-20) Calcium Level 9.2 mg/dl (8.5-10.1) Bedside Glucose 107 mg/dl (70-99) 159 mg/dl (70-99) 141 mg/dl (70-99) Test 07/19/16 03:35 07/19/16 07:37 07/19/16 08:14 Bedside Glucose 129 mg/dl (70-99) 151 mg/dl (70-99) Allergies Coded Allergies: No Known Allergies (Verified , 06/02/16) Medications Current Inpatient Medications Medications (Trade) Dose Ordered Sig/Eliseo Route Start Time Stop Time Status Last Admin Dose Admin Acetaminophen (Tylenol Tab) 650 mg Q4H PRN PO 07/13/16 20:00 08/12/16 19:59 07/17/16 21:24 650 MG Magnesium Hydroxide (Milk Of Magnesia Susp) 30 ml Q6H PRN PO 07/13/16 20:00 08/12/16 19:59 Ondansetron HCl (Zofran Inj) 4 mg Q6H PRN IV 07/13/16 20:00 08/12/16 19:59 07/14/16 15:57 4 MG Insulin Aspart (novoLOG ASPART) SLIDING SCALE If C... ACHS SC 07/13/16 21:00 08/12/16 20:59 07/19/16 08:12 3 UNITS Glucose (Glucose 40% Gel) 15-30 GRAMS 15 GRAMS... UD PRN PO 07/13/16 20:00 08/12/16 19:59 Glucose (Glucose Chew Tab) 4-8 Tablets 4 Tabl... UD PRN PO 07/13/16 20:00 08/12/16 19:59 Dextrose (Dextrose 50% 50ML Syringe) 25-50ML OF 50% DW IV FOR... UD PRN IV 07/13/16 20:00 08/12/16 19:59 Glucagon (Glucagon Inj) 1 mg UD PRN SQ 07/13/16 20:00 08/12/16 19:59 Allopurinol (Zyloprim Tab) 100 mg DAILY PO 07/14/16 08:00 08/13/16 08:59 07/18/16 08:07 100 MG Atorvastatin Calcium (Lipitor Tab) 20 mg HS PO 07/13/16 21:00 08/12/16 20:59 07/18/16 19:44 20 MG Calcium Acetate (Phoslo Cap) 667 mg TIDM PO 07/14/16 08:00 08/13/16 07:59 07/18/16 16:44 667 MG Chlordiazepoxide (Librium Cap) 10 mg BID PO 07/13/16 21:00 08/12/16 20:59 07/18/16 19:44 10 MG Furosemide (Lasix Tab) 80 mg BID17 PO 07/13/16 21:00 08/12/16 20:59 07/18/16 16:44 80 MG Acetaminophen/ Hydrocodone Bitart (Milan 5/325 Tab) 1 tab Q6H PRN PO 07/13/16 20:00 07/27/16 19:59 07/15/16 22:45 1 TAB Lisinopril (Zestril Tab) 40 mg QAM PO 07/14/16 08:00 08/13/16 08:59 07/18/16 08:07 40 MG Meclizine HCl (Antivert Tab) 25 mg Q4H PRN PO 07/13/16 20:00 08/12/16 19:59 Metoprolol Succinate (Toprol Xl Tab) 50 mg QPM PO 07/13/16 21:00 08/12/16 20:59 07/18/16 19:43 50 MG Metoprolol Succinate (Toprol Xl Tab) 75 mg QAM PO 07/14/16 08:00 08/13/16 08:59 07/18/16 08:08 75 MG Tamsulosin HCl (Flomax Cap) 0.4 mg HS PO 07/13/16 21:00 08/12/16 20:59 07/18/16 19:44 0.4 MG Miscellaneous Information (Order Awaiting Action) 1 ea QS N/A 07/14/16 00:00 08/13/16 00:00 Miscellaneous Information (Order Awaiting Action) 1 ea QS N/A 07/14/16 00:00 08/13/16 00:00 Ranitidine HCl (zANTac TAB) 300 mg DAILY PO 07/14/16 08:00 08/13/16 08:59 07/18/16 08:08 300 MG Trazodone HCl (Desyrel Tab) 150 mg HS PRN PO 07/13/16 20:00 08/12/16 19:59 07/15/16 22:45 150 MG Miscellaneous (Iv Fluids Completed) 1 ea PRN PRN N/A 07/13/16 20:15 07/13/17 20:14 Vitamin B Complex/ Vit C/Folic Acid (Nephrocaps) 1 cap QAM PO 07/15/16 08:00 08/14/16 07:59 07/18/16 08:08 1 CAP Warfarin Sodium (Coumadin Tab) 3 mg DAILY@16 PO 07/14/16 16:00 08/13/16 15:59 07/18/16 16:43 3 MG Diclofenac Sodium (Voltaren 1% Top Gel) 1 appln QID EXT 07/15/16 20:00 08/14/16 19:59 07/19/16 03:36 1 APPLN Oxycodone/ Acetaminophen (Percocet 5-325mg Tab) 1 tab QID PRN PO 07/15/16 16:00 07/29/16 15:59 07/19/16 03:35 1 TAB Enteral Nutritional Formula (Boost Glucose Control) 1 can QDD PO 07/16/16 17:00 08/15/16 16:59 07/16/16 17:09 1 CAN Morphine Sulfate (MoRPHine SULFATE INJ) 2 mg Q2H PRN IV 07/16/16 20:30 07/30/16 20:29 07/19/16 08:07 2 MG Impression (1) Syncope and collapse (2) End-stage renal disease on hemodialysis (3) Monoclonal gammopathy (4) Hypertension (5) Anemia (6) Atrial fibrillation (7) Supratherapeutic INR (8) Peripheral vascular disease Mr. Carmichael was admitted for evaluation of syncope and weakness. He has ESRD and requires MWF HD. Currently no evidence of infection, arrhythmia or seizure. He did not lose consciousness. He is below his EDW and may have suffered syncope related to orthostasis. PMH: ESRD on HD MWF at [facility] (HD Rx: 4 hr F-180 2K 2.5Ca EDW 112 15g needles Epogen 2000 units Hectrol 1 mcg), angioplasty venous limb AVF 06/30, HTN, AODM, PVD, IgM Higginson monoclonal gammopathy, gout, atrial fibrillation on chronic anticoagulation therapy. Recommendations -- currently volume status and BP acceptable, tolerating HD well, aim for EDW 97 kg, pt seems to have lost significant weight after repeated hospitalization over last 2 months. -- continue on Protein supplement, phosphate binder and renal vitamin -- Protect left arm AVF -- received FLOWER 07/16/16 -- Patient waiting on insurance approval to go to a rehab however, insurance has been repeatedly denying.
[2016-07-19] MEDS: NEPHROCAPS PO SCH (13:30)
[2016-07-19] MEDS: CHLORDIAZEPOXIDE 10 MG CAP PO SCH (13:30)
[2016-07-19] MEDS: ALLOPURINOL 100 MG TAB PO SCH (13:31)
[2016-07-19] MEDS: RANITIDINE HCL 150 MG TAB PO SCH (13:31)
[2016-07-19] MEDS: METOPROLOL SUCC 25MG EXT REL TAB PO SCH (13:31)
[2016-07-19] MEDS: LISINOPRIL 40 MG TAB PO SCH (13:32)
[2016-07-19] MEDS ORDERED: NVLGIPEN SC ×2 (16:27)
[2016-07-19] MEDS ORDERED: VLTG EXT ×2 (16:27)
[2016-07-19] MEDS ORDERED: CMD3 PO ×2 (16:28)
[2016-07-19] MEDS ORDERED: INSU3INJ3 SQ ×2 (16:35)
[2016-07-19] MEDS: WARFARIN SOD 3 MG TAB PO SCH (17:05)
[2016-07-19] MEDS ORDERED: OXYC-57 PO ×2 (17:07)
[2016-07-29] MEDS ORDERED: GABA-112 PO (13:17)
--- NOTE | 2016-08-02 21:59 | Discharge Summary ---
Discharge Summary Date of Service Jul 19, 2016. 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 Sepsis. FINDINGS: An AP, portable, upright chest radiograph is compared to study dated 06/30/2016. The examination is degraded by portable technique and patient rotation. The heart is enlarged and there is atherosclerotic calcification of the thoracic aorta. Pulmonary vascular congestion persists. More focal airspace consolidation is suggested at the left lung base. Trace pleural effusions are noted. No pneumothorax is seen. The skeletal structures are osteopenic. Degenerative change is noted throughout the thoracic spine. IMPRESSION: 1. Cardiomegaly and pulmonary vascular congestion. 2. There are developing airspace opacities at the left lung base. Correlate clinically for evidence of superimposed pneumonia. 3. Trace pleural effusions. CT OF THE HEAD WITHOUT CONTRAST CLINICAL HISTORY: Elevated INR. Altered mental status. Falls. COMPARISON STUDY: Head CT June 07, 2016. CT DOSE: 614.27 mGy.cm TECHNIQUE: Helical axial images of the head were obtained without IV contrast. Automated exposure control was utilized for the study. FINDINGS: No acute intracranial hemorrhage, midline shift or mass effect is present. White matter hypodensity suggests small vessel disease. Mild dilatation of the lateral ventricles is unchanged. There are no findings to suggest acute dural sinus thrombosis or acute territorial infarct. There is no calvarial fracture. IMPRESSION: 1. No acute intracranial findings. 2. No calvarial fracture. ULTRASOUND OF THE CAROTID ARTERIES CLINICAL HISTORY: syncope COMPARISON STUDY: None. TECHNIQUE: Real-time, grayscale, and color Doppler sonography of the carotid arteries was performed. Imaging reviewed in the transverse and longitudinal planes. NASCET criteria was utilized for stenosis calcification. FINDINGS: There is moderately extensive atherosclerotic plaque present bilaterally. The peak systolic velocity within the right internal carotid artery is 80 cm/sec. The systolic velocity ratio of right internal to common carotid artery is 1.1. The peak systolic velocity within the left internal carotid artery is 126 cm/sec. The systolic velocity ratio left internal to common carotid artery is 1.0. Antegrade flow is seen in the vertebral arteries. The external carotid arteries are patent. There are elevated velocities within both external carotid arteries. The systolic velocity within the right external carotid artery is 434 cm/s. Peak systolic velocity of the left external carotid artery is to 45 cm/s. IMPRESSION: 1. Moderate bilateral atheromatous changes 2. No evidence of hemodynamically significant internal carotid artery stenosis 3. Bilateral external carotid artery stenosis, right more severe than left 4. Antegrade flow within both vertebral arteries. Consultations: Nephrology Wound Care Medication Reconciliation New Medications: Diclofenac Sod (Voltaren) 100 Appln/100 Gm Gel 1 GM EXT TID, #100 GM apply to neck TID; once pain resolves may dc Insulin Detemir (Levemir Flextouch) 100 Unit/Ml Inj 10 UNITS SQ HS for 30 Days B-Complex W/ C & Folic Acid (Renal) 1 Cap Cap 1 CAP PO QAM, #30 CAP Insulin Aspart (Novolog Flexpen) 100 Units/Ml Inj 0 UNITS SC ACHS for 30 Days Oxycodone/Acetaminophen 5MG/325MG (Percocet 5MG/325MG) Tab 1 TAB PO QID PRN for severe pain, #10 TAB PAIN Warfarin Sod (Coumadin) 3 Mg Tab 3 MG PO DAILY@16 for 30 Days, TAB Continued Medications: Allopurinol (Zyloprim) 100 Mg Tab 100 MG PO DAILY Atorvastatin (Atorvastatin Calcium) 20 Mg Tab 20 MG PO HS, #30 Calcium Acetate (Phosphate Bin (Phoslo 667 Mg) 667 Mg Cap 667 MG PO TIDM Cefadroxil (Cefadroxil) 1 Gm Tab 1 TAB PO BID for 30 Days, #60 TABS 2 Refills Chlordiazepoxide (Librium) 10 Mg Cap 10 MG PO BID, CAP Furosemide (Lasix) 40 Mg Tab 80 MG PO BID Lisinopril (Zestril) 40 Mg Tab 40 MG PO QAM, TAB Meclizine HCl (Meclizine HCl) 25 Mg Tab 25 MG PO Q4H PRN for Dizziness or Vertigo Metoprolol Succinate (Metoprolol Succinate ER) 50 Mg Tabcr 50 MG PO QPM HOLD FOR AP HEART RATE <50 Metoprolol Succinate (Toprol Xl) 25 Mg Tabcr 75 MG PO QAM GIVE WITH A 50MG TABLET TO = 75MG TOTAL HOLD FOR APICAL HEART RATE <60 Ranitidine Hcl (Zantac) 300 Mg Tab 300 MG PO DAILY Tamsulosin HCl (Tamsulosin HCl) 0.4 Mg Cap 0.4 MG PO HS, #30 Trazodone HCl (Trazodone HCl) 150 Mg Tab 150 MG PO HS PRN for Sleep Discharge Exam Physical Exam General Appearance: no apparent distress Eyes: EOMI ENT: hearing grossly normal Neck: trachea midline Respiratory/Chest: no respiratory distress, no accessory muscle use, CTAB Extremities: normal range of motion (wound vac present R foot) Neurologic/Psychiatric: alert, normal mood/affect Skin: normal color, warm/dry Review of Systems: Constitutional: No fever Eyes: No problem reported ENT: No problem reported Respiratory: No shortness of breath Cardiovascular: No chest pain Abdomen: No problem reported Musculoskeletal: No problem reported Genitourinary - Male: No problem reported Neurologic: + weakness (generalized) Psychiatric: No problem reported Endocrine: No problem reported Hematologic / Lymphatic: No problem reported Integumentary: No problem reported Hospital Course 75 y/o M c/o falls. Pt was recent d/c from [facility] on 07/01 for osteomyelitis. He was sent to [facility] for rehab and to complete a course of IV abx. Pt was d/c' d from [facility] 2 days prior to admission. He was fine at that time, but has since fallen daily. He feels like "my bones are rubber". No new pain related to R foot ulceration. He has a decreased appetite. No n/v. He states he is unsure if he is still on abx. He does not know his coumadin or levemir dosing. He states that his daughter Zita does all of his meds for him. She is not present at the time of admission. He has not had any medication changes recently though per him. Pt denies fever, SOB, chest pain, c/d, LE pain or swelling. Weakness - seems to be predominantly deconditioning - however in his weak/frail state also appearing that this acute neck/back pain likely impairing him more than would be normally expected. As of 07/18 neck and back pain clearly improving. does note that he'd not been eating as well; has had several hospitalizations recently - all of which could easily precipitate deconditioning. what's unclear is the reason as to why he decompensated now when it appears that he was doing better at dc from SNF, but after days of review, only clear acute is the MSK pain. continue to follow, serial exams as clinically warranted. B12 and D ok. Absolutely does not appear safe for home dispo - appears most appropriate for SNF/rehab. Poor PO intake, recently low albumin, moderate protein malnutrition - display trimmer consulted, encouraged PO intake, continue to follow this even in outpt setting, repeat albumin ~4wks sooner if clinically warranted. Neck and back pain -appearing biomechanical/musculoskeletal - voltaren gel helping. due to falls, Xrays for completeness, but as expected no acute findings chest pain -rib related - OMT provided Rib region somatic dysfunction -OMT as above Falls: in the setting of recent osteomyelitis, ESRD PT/OT eval and treat weakness as above Recent osteomyelitis: no new issues Wound consult, follow for any s/s active infection, none so far Abnormal CXR has not been on abx for this, no worsening. not a current/active issue. repeat CXR ~4-6wks is recommended ESRD: M/W/F HD DM: SSI + levemir A1c 06/2016 7.1 sugars continue to be tight - actually Levemir ended up held the day prior to discharge - likely due to far less carb intake in controlled environment Afib and coumadin coagulopathy - continue home meds, coumadin reversed - but still low INR -- anticipate slow rise, but back on home dosing, follow INR. up to 1.6 today HTN: continue home meds, continue to follow diabetic foot wound / osteomyelitis -management as per wound clinic, including wound vac Other: Full code Coumadin for DVT proph DM, renal diet Dispo-to SNF/[facility] Total Time Spent: Greater than 30 minutes This includes examination of the patient, discharge planning, medication reconciliation, and communication with other providers. Discharge Instructions Please refer to the electronic Patient Visit Report (Discharge Instructions) for additional information. Additional Copies To Obi Mendez M.D.
== END 2016-07-19 17:40 | DRG 312 ==
LOC: ENRESERVDT → ENRESERVTM → EDBD 16:25 → C.EDB 16:26 → C.MS4W 20:02
PROVIDERS: ADMIT Family Medicine; ATTEND Family Medicine
DX: R55 Syncope and collapse (principal); N18.6 End stage renal disease; E44.0 Moderate protein-calorie malnutrition; M86.8X7 Other osteomyelitis, ankle and foot; I12.0 Hypertensive chronic kidney disease with stage 5 chronic kidney disease or end stage renal disease; N25.81 Secondary hyperparathyroidism of renal origin; Z68.28 Body mass index [BMI] 28.0-28.9, adult; E11.51 Type 2 diabetes mellitus with diabetic peripheral angiopathy without gangrene; D47.2 Monoclonal gammopathy; E11.621 Type 2 diabetes mellitus with foot ulcer; E11.69 Type 2 diabetes mellitus with other specified complication; L97.519 Non-pressure chronic ulcer of other part of right foot with unspecified severity; M99.08 Segmental and somatic dysfunction of rib cage; E11.22 Type 2 diabetes mellitus with diabetic chronic kidney disease; M10.9 Gout, unspecified; E11.40 Type 2 diabetes mellitus with diabetic neuropathy, unspecified; N40.0 Benign prostatic hyperplasia without lower urinary tract symptoms; D64.9 Anemia, unspecified; I65.23 Occlusion and stenosis of bilateral carotid arteries; Z83.3 Family history of diabetes mellitus; Z82.49 Family history of ischemic heart disease and other diseases of the circulatory system; Z84.1 Family history of disorders of kidney and ureter; Z99.2 Dependence on renal dialysis; Z86.010 Personal history of colon polyps; Z87.891 Personal history of nicotine dependence; Z79.01 Long term (current) use of anticoagulants; Z79.4 Long term (current) use of insulin; Z79.899 Other long term (current) drug therapy

== ENCOUNTER 2016-08-02 06:21 | Emergency (ER) | payer OTHER ==
[~2016-08-02] VITALS: Ht 185.4 cm; Wt 95.0 kg
[~2016-08-02 06:21] MED LIST changes: -AMLO-110 PO; -ASPI-232 PO; -ASPI81TA28 PO; -ATRIN INH; -B-CO1CAP17 PO; +B-COCAP20 PO; -CHOL2000 PO; +CMD3 PO; -CMD5 PO; +FRS/40 PO; +GABA-112 PO; -HYDR-5688 PO; -INSU1INJ2 SQ; -IPRASOL4 INH; -LBR10 PO; -LEVO-17 PO; -LEVO-366 PO; +LIDO4CRE10 TOP; -LSN40 PO; -LSX40 PO; -LVMI SC; -LVMIPEN SC; +METO25TA3 PO; -METO50TA7 PO; -METR-163 PO; -MTR500 PO; -NF1094 IV; -NRV5 PO; +NUTR-7 PO; +NVLGIPEN SC; +OXYC-57 PO; -SODI650T8 PO; -TPRSR25 PO; +VLTG EXT
[2016-08-02 06:26] VITALS: TEMP 36.4; Ht 185.4 cm; Wt 95.0 kg
--- NOTE | 2016-08-02 06:57 | DIAGNOSTIC IMAGING REPORT ---
CHEST ONE VIEW PORTABLE CLINICAL HISTORY: weakness, fall, ESRD dyspnea COMPARISON STUDY: 07/13/2016 FINDINGS: The bones soft tissues and hemidiaphragms are normal. The cardiomediastinal silhouette is normal. The lungs are clear. The pulmonary vasculature is normal. IMPRESSION: Negative chest. Electronically signed by: Quentin Stephenson M.D. 08/02/2016 6:55 AM Dictated Date/Time: 08/02/2016 6:55 AM
--- NOTE | 2016-08-02 06:58 | EMERGENCY ROOM VISIT NOTE ---
History Report prepared by [place]: Kortney Swenson Under the Supervision of: Dr. Tanya Yang M.D. 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 The patient came to the ED via ambulance from [facility]. EMS reports that the patient was supposed to go to dialysis this morning, but he stated that he did not want to go and fell onto the floor. The patient denies LOC and any injuries from falling. The patient states that he has felt generally weak and disoriented for the past week. The patient denies chest pain, shortness of breath, and abdominal pain. He has not recorded any fevers. The patient states that he is missing dialysis today. He states that he is still able to make urine. The patient states that he has been eating normally. He adds that he experiences a constant headache all of the time. 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 A total of 10 systems reviewed and were otherwise negative. Past Medical & Surgical Medical Problems: (1) Anemia (2) Atrial fibrillation (3) CKD (chronic kidney disease) stage 3, GFR 30-59 ml/min (4) Diabetes mellitus, type II (5) Diabetic ulcer of right foot (6) End-stage renal disease on hemodialysis (7) Frequent falls (8) Generalized weakness (9) Gout (10) History of adenomatous polyp of colon (11) History of Clostridium difficile infection (12) Hypertension (13) Monoclonal gammopathy (14) Osteomyelitis (15) Peripheral vascular disease (16) Secondary hyperparathyroidism of renal origin (17) Supratherapeutic INR (18) Syncope and collapse (19) Unspecified open wound, right foot, sequela Surgical Problems: (1) Status post arthroscopic knee surgery Family History FH: diabetes mellitus AUNT FH: stroke GRANDMOTHER Heart disease Hypertension Kidney disease Social History Smoking Status: Former Smoker Alcohol Use: none Drug Use: other Marital Status: Housing Status: lives with family Occupation Status: retired Current/Historical Medications Scheduled Allopurinol (Zyloprim), 100 MG PO DAILY Atorvastatin (Atorvastatin Calcium), 20 MG PO HS B-Complex W/ C & Folic Acid (Renal), 1 CAP PO QAM Calcium Acetate (Phosphate Bin (Phoslo 667 Mg), 667 MG PO TIDM Cefadroxil (Cefadroxil), 1 TAB PO BID Chlordiazepoxide (Librium), 10 MG PO BID Diclofenac Sod (Voltaren), 1 GM EXT TID Furosemide (Lasix), 80 MG PO BID Gabapentin (Neurontin), 100 MG PO TID Insulin Aspart (Novolog Flexpen), 0 UNITS SC ACHS Insulin Detemir (Levemir Flextouch), 10 UNITS SQ HS Lisinopril (Zestril), 40 MG PO QAM Metoprolol Succ (Toprol Xl) (Toprol-Xl), 50 MG PO QAM Metoprolol Succinate (Metoprolol Succinate ER), 50 MG PO QPM Metoprolol Succinate (Toprol Xl), 75 MG PO QAM Ranitidine Hcl (Zantac), 300 MG PO DAILY Tamsulosin HCl (Tamsulosin HCl), 0.4 MG PO HS Warfarin Sod (Coumadin), 3 MG PO DAILY@16 Scheduled PRN Acetaminophen Tab (Tylenol), 650 MG PO Q6 PRN for Pain or Fever Meclizine HCl (Meclizine HCl), 25 MG PO Q4H PRN for Dizziness or Vertigo Oxycodone/Acetaminophen 5MG/325MG (Percocet 5MG/325MG), 1 TAB PO QID PRN for severe pain Trazodone HCl (Trazodone HCl), 150 MG PO HS PRN for Sleep Allergies Coded Allergies: No Known Allergies (Verified , 08/02/16) Physical Exam Vital Signs Date Time Temp Pulse Resp B/P (MAP) Pulse Ox O2 Delivery O2 Flow Rate FiO2 08/02/16 10:35 48 16 144/70 93 08/02/16 10:26 48 16 144/70 93 Room Air 08/02/16 08:20 81 16 144/57 92 Room Air 08/02/16 06:28 48 08/02/16 06:26 36.4 50 16 118/60 93 Room Air Physical Exam Vital signs reviewed. General: Chronically ill-appearing elderly male, in no significant distress. HEENT: No scleral icterus, PERRLA, neck supple. Atraumatic. Cardiovascular: Regular rate and rhythm, no extra sounds. Pulmonary: Clear to auscultation bilaterally, normal work of breathing. Abdomen: Soft, nontender, nondistended, positive bowel sounds. Musculoskeletal: Atraumatic, no peripheral edema. Neurologic: Patient awake alert and oriented x 3, full strength in all 4 extremities. Cranial nerves 2 through 12 grossly intact. Skin: Warm, dry, no rash Medical Decision & Procedures ER Provider Diagnostic Interpretation: Radiology results as stated below per my review and radiologist interpretation: CHEST ONE VIEW PORTABLE FINDINGS: The bones soft tissues and hemidiaphragms are normal. The cardiomediastinal silhouette is normal. The lungs are clear. The pulmonary vasculature is normal. IMPRESSION: Negative chest. Electronically signed by: Quentin Stephenson M.D. 08/02/2016 6:55 AM Dictated Date/Time: 08/02/2016 6:[address] NONCONTRAST Comparison: 07/14/2016 Findings: The paranasal sinuses and mastoid air cells are clear. The calvarium and skull base are intact. The ventricles and sulci are within normal limits. There is no mass, hematoma, midline shift, or acute infarct. Chronic small vessel change Impression: No acute intracranial abnormality. Age-related change. Electronically signed by: Quentin Stephenson M.D. 08/02/2016 7:26 AM Dictated Date/Time: 08/02/2016 7:25 AM Laboratory Results 08/02/16 07:00 Red Blood Count 4.13, Mean Corpuscular Volume 88.4, Mean Corpuscular Hemoglobin 28.3, Mean Corpuscular Hemoglobin Concent 32.1, Mean Platelet Volume 8.6, Neutrophils (%) (Auto) 43.9, Lymphocytes (%) (Auto) 36.4, Monocytes (%) (Auto) 10.5, Eosinophils (%) (Auto) 8.2, Basophils (%) (Auto) 0.9, Neutrophils # (Auto ) 4.00, Lymphocytes # (Auto) 3.32, Monocytes # (Auto) 0.96, Eosinophils # (Auto ) 0.75, Basophils # (Auto) 0.08 08/02/16 07:00 Test 08/02/16 07:00 08/02/16 07:11 White Blood Count 9.12 K/uL (4.8-10.8) Red Blood Count 4.13 M/uL (4.7-6.1) Hemoglobin 11.7 g/dL (14.0-18.0) Hematocrit 36.5 % (42-52) Mean Corpuscular Volume 88.4 fL (80-100) Mean Corpuscular Hemoglobin 28.3 pg (25-34) Mean Corpuscular Hemoglobin Concent 32.1 g/dl (32-36) Platelet Count 344 K/uL (130-400) Mean Platelet Volume 8.6 fL (7.4-10.4) Neutrophils (%) (Auto) 43.9 % Lymphocytes (%) (Auto) 36.4 % Monocytes (%) (Auto) 10.5 % Eosinophils (%) (Auto) 8.2 % Basophils (%) (Auto) 0.9 % Neutrophils # (Auto) 4.00 K/uL (1.4-6.5) Lymphocytes # (Auto) 3.32 K/uL (1.2-3.4) Monocytes # (Auto) 0.96 K/uL (0.11-0.59) Eosinophils # (Auto) 0.75 K/uL (0-0.5) Basophils # (Auto) 0.08 K/uL (0-0.2) RDW Standard Deviation 54.1 fL (36.4-46.3) RDW Coefficient of Variation 16.9 % (11.5-14.5) Immature Granulocyte % (Auto) 0.1 % Immature Granulocyte # (Auto) 0.01 K/uL (0.00-0.02) Prothrombin Time 13.8 SECONDS (9.0-12.0) Prothromb Time International Ratio 1.3 (0.9-1.1) Activated Partial Thromboplast Time 32.7 SECONDS (21.0-31.0) Partial Thromboplastin Ratio 1.3 Anion Gap 11.0 mmol/L (3-11) Est Creatinine Clear Calc Drug Dose 10.3 ml/min Estimated GFR () 8.0 Estimated GFR (Non- 6.9 BUN/Creatinine Ratio 3.6 (10-20) Calcium Level 10.1 mg/dl (8.5-10.1) Magnesium Level 2.8 mg/dl (1.8-2.4) Total Bilirubin 0.6 mg/dl (0.2-1) Direct Bilirubin 0.2 mg/dl (0-0.2) Aspartate Amino Transf (AST/SGOT) 39 U/L (15-37) Alanine Aminotransferase (ALT/SGPT) 30 U/L (12-78) Alkaline Phosphatase 190 U/L (45-117) Total Creatine Kinase 119 U/L (39-308) Creatine Kinase MB 1.9 ng/ml (0.5-3.6) Creatine Kinase MB Ratio 1.6 (0-3.0) Total Protein 7.7 gm/dl (6.4-8.2) Albumin 2.9 gm/dl (3.4-5.0) Bedside Troponin I < 0.030 ng/ml (0-0.045) Laboratory results per my review. ECG Indication: weakness Rate (beats per minute): 46 Rhythm: sinus bradycardia Findings: 1st degree AV block, nonspecific-ST abn (Inferior), no acute ischemic change, no ectopy, other (diffuse T-wave flattening) ED Course 0641: Past medical records reviewed. The patient was evaluated in room B7. A complete history and physical examination was performed. 1016: Upon reevaluation, the patient appeared to have improvement of his symptoms. I discussed findings with him. He verbalized agreement of the treatment plan. He was discharged home. Medical Decision Differentials include metabolic, infection, hypo/hyperglycemia, electrolyte abnormalities, cardiac sources, intracerebral event, toxicologic, neurologic. Medication Reconciliation: I attest that I have personally reviewed the patient' s current medication list. Blood Pressure Screening: Patient was found to have a normal blood pressure followed by multiple elevated blood pressures. However, I believe the elevated blood pressure is secondary to the patient missing dialysis today so I did not discuss following up for elevated blood pressure with him. This pt was evaluated and appeared to be in no distress. IV access was obtained and lab work was drawn. Pt was placed on the school bus monitor. Pt is due for dialysis this morning therefore no IVF were initiated. Lab work revealed no significant electrolyte abnl. H/H is stable. Pt VSS. CXR is unrevealing and head CT is negative for acute intracranial abnl. Pt was able to ambulate with nursing staff. He was stable for d/c to dialysis and his NH. He is aware of the plan and agrees. Impression Primary Impression: Generalized weakness Additional Impression: End-stage renal disease on hemodialysis Scribe Attestation The scribe's documentation has been prepared under my direction and personally reviewed by me in its entirety. I confirm that the note above accurately reflects all work, treatment, procedures, and medical decision making performed by me. Departure Information Dispostion Home / Self-Care Referrals Obi Mendez M.D. (PCP) Forms HOME CARE DOCUMENTATION FORM, IMPORTANT VISIT INFORMATION Patient Instructions My [facility] Additional Instructions Diagnosis: Weakness, end-stage renal disease Please go to dialysis for treatment today. Resume usual medications as directed. Follow-up your physician within the next several days for reevaluation, particularly if symptoms worsen. Return to the ER for worsening of symptoms or any medical concerns. Problem Qualifiers
[2016-08-02] MEDS ORDERED: METO50TA7 PO (07:02)
[2016-08-02] MEDS ORDERED: ACET325T96 PO (07:07)
--- NOTE | 2016-08-02 07:28 | DIAGNOSTIC IMAGING REPORT ---
HEAD CT NONCONTRAST CT DOSE: 687.98 mGy.cm HISTORY: Mental status change Weakness, fall TECHNIQUE: Multiaxial CT images of the head were performed without the use of intravenous contrast. Comparison: 07/14/2016 Findings: The paranasal sinuses and mastoid air cells are clear. The calvarium and skull base are intact. The ventricles and sulci are within normal limits. There is no mass, hematoma, midline shift, or acute infarct. Chronic small vessel change Impression: No acute intracranial abnormality. Age-related change. Electronically signed by: Quentin Stephenson M.D. 08/02/2016 7:26 AM Dictated Date/Time: 08/02/2016 7:25 AM
[2016-08-02 08:10] LABS: INR 1.3 (0.9-1.1); PARTIAL THROMBOPLASTIN RATIO 1.3; PROTHROMBIN TIME (PATIENT) 13.8 SECONDS (9.0-12.0)
[2016-08-02 08:11] LABS: CALCIUM 10.1 mg/dl (8.5-10.1)
[2016-08-02 08:17] LABS: BASO % 0.9 %; BASO ABS # 0.08 K/uL (0-0.2); COMPLETE YES; EOS % 8.2 %; HEMATOCRIT 36.5 % (42-52); IG% 0.1 %; LYMPH % 36.4 %; LYMPH ABS # 3.32 K/uL (1.2-3.4); MEAN CELL VOLUME 88.4 fL (80-100); MEAN CORPUSCULAR HEMOGLOBIN 28.3 pg (25-34); MEAN CORPUSCULAR HGB CONC 32.1 g/dl (32-36); MEAN PLATELET VOLUME 8.6 fL (7.4-10.4); MONO % 10.5 %; NEUT % 43.9 %; PLATELET COUNT 344 K/uL (130-400); RED BLOOD COUNT 4.13 M/uL (4.7-6.1); WHITE BLOOD COUNT 9.12 K/uL (4.8-10.8)
[2016-08-02 08:20] LABS: BUN/CREATININE RATIO 3.6 (10-20); CKMB/CK RATIO 1.6 (0-3.0); CREATININE 7.1 mg/dl (0.60-1.40); MAGNESIUM 2.8 mg/dl (1.8-2.4); POTASSIUM 3.3 mmol/L (3.5-5.1)
[2016-08-02 10:35] VITALS: BP 144/70; PULSE 48; O2SAT 93
== END 2016-08-02 10:31 | disposition home or self-care (01) ==
LOC: EDBD 06:21 → C.EDB 06:22
DX: R53.1 Weakness (principal); N18.6 End stage renal disease; Z99.2 Dependence on renal dialysis; R51 Headache; D64.9 Anemia, unspecified; I48.91 Unspecified atrial fibrillation; I12.0 Hypertensive chronic kidney disease with stage 5 chronic kidney disease or end stage renal disease; E11.22 Type 2 diabetes mellitus with diabetic chronic kidney disease; E11.51 Type 2 diabetes mellitus with diabetic peripheral angiopathy without gangrene; M10.9 Gout, unspecified; D47.2 Monoclonal gammopathy; M86.9 Osteomyelitis, unspecified; N25.81 Secondary hyperparathyroidism of renal origin; Z79.01 Long term (current) use of anticoagulants; Z79.4 Long term (current) use of insulin

== ENCOUNTER → 2016-08-06 | Outpatient (CLI) | payer OTHER ==
[~2016-08-06] MED LIST changes: +ACET325T96 PO; -LIDO4CRE10 TOP; +METO50TA7 PO; -NUTR-7 PO
[2016-08-06 11:00] LABS: INR 1.2 (0.9-1.1); PROTHROMBIN TIME (PATIENT) 13.1 SECONDS (9.0-12.0)
== END ==
LOC: C.LABUPUNI 09:31
PROVIDERS: ATTEND Nurse Practitioner Family
DX: I48.0 Paroxysmal atrial fibrillation (principal)